=== PATIENT | female | born 1960 | race Caucasian/White ===

== ENCOUNTER 2016-06-16 19:31 | Inpatient (IN) | payer MEDICAID ==
[2016-06-16] MEDS ORDERED: Sodium Chloride 0.9% 1,000 ML IV ONE ×2 (19:50→21:57)
[2016-06-16] MEDS ORDERED: Sodium Chloride 0.9% 10 ML Syringe FLUSH PRN (19:51)
[2016-06-16] MEDS ORDERED: cefTRIAXone 1 GM in Sodium Chloride 0.9% 100 ML IV ONE (21:34)
--- NOTE | 2016-06-16 21:42 | EDM.PDOC ---
ED HPI RENAL/ - General Chief Complaint: Genitourinary Problem Stated Complaint: [facility] Time Seen by Provider: 06/16/16 20:05 Source of Information: Reports: EMS, [facility] records History Limitations: Reports: Physical impairment - History of Present Illness INITIAL COMMENTS - FREE TEXT/NARRATIVE: Patient is sent for the halfway for evaluation and treatment of a fever and lethargy. Reports that she had fever of 100.5 at the halfway. She has also been more lethargic than normal. Patient is nonverbal and is unable to provide any history. The patient was diagnosed with urinary tract infection and started on ciprofloxacin today. She has had one dose thus far. - Related Data Allergies/ADRs: Allergies Allergy/AdvReac Type Severity Reaction Status Date / Time No Known Allergies Allergy Verified 07/21/15 15:34 Home Meds: Home Meds Baclofen 30 mg PO TID 04/06/14 [History] FLUoxetine [PROzac] 20 mg PO DAILY 04/06/14 [History] LORazepam [Ativan] 0.25 mg PO BID 04/06/14 [History] tiZANidine HCl [Zanaflex] 2 mg PO TID 04/06/14 [History] Acetaminophen [Tylenol] 2 tab PO Q4HR PRN 06/30/14 [History] Cholecalciferol (Vitamin D3) [Vitamin D3] 2,000 unit PO DAILY 06/30/14 [History] Docusate Sodium/Sennosides [Senna Plus] 2 tab PO BID 06/30/14 [History] Magnesium Oxide 400 mg PO DAILY 06/30/14 [History] Multivitamin with Minerals [Multiple Vitamin] 1 tab PO DAILY 06/30/14 [History] levETIRAcetam [Keppra] 1,000 mg PO BID 06/30/14 [History] Lactulose [Chronulac] 15 ml PO ASDIRECTED PRN 08/05/14 [History] Bisacodyl [Dulcolax] 10 mg PO ASDIRECTED PRN 07/21/15 [History] Bisacodyl [Dulcolax] 10 mg RC ASDIRECTED PRN 07/21/15 [History] Levofloxacin [Levaquin] 250 mg PO Q24H #3 tablet 07/24/15 [Rx] Past Medical History Genitourinary History: Reports: UTI, recurrent Other Musculoskeletal History: MS Neurological History: Reports: Alzheimers disease, CVA, MS Psychiatric History: Reports: Depression Endocrine/Metabolic History: Reports: Diabetes, type II Hematologic History: Reports: Anemia, Other (see below) Other Hematologic History: eosinophilia Social & Family History - Family History Family Medical History: Unobtainable - Tobacco Use Smoking Status *Q: Unknown Ever Smoked Second Hand Smoke Exposure: No - Alcohol Use Days Per Week of Alcohol Use: 0 - Recreational Drug Use Recreational Drug Use: No ED ROS GENERAL - Review of Systems Review Of Systems: Unable To Obtain Constitutional: Reports: fever (100.5 per halfway report), fatigue (per halfway report) ED EXAM, RENAL/ - Physical Exam Exam: See Below Exam Limited By: Language barrier (nonverbal) General Appearance: alert, WD/WN, no apparent distress Respiratory/Chest: no respiratory distress, lungs clear, normal breath sounds Cardiovascular: normal peripheral pulses, regular rate, rhythm, no murmur GI/Abdominal: soft, non tender Neurological: alert Skin Exam: Warm, Dry, Normal color Course - Vital Signs Last Recorded V/S: Last Vital Signs Temp 37.3 C 06/16/16 22:00 Pulse 79 06/16/16 22:00 Resp 18 06/16/16 22:00 BP 108/66 06/16/16 22:00 Pulse Ox 96 06/16/16 22:00 - Orders/Labs/Meds Orders: Active Orders 24 hr Category Date Time Status Chest 1V Frontal [CR] Stat Exams 06/16/16 19:50 Taken BASIC METABOLIC PANEL,BMP [CHEM] Stat Lab 06/17/16 05:00 Ordered C-REACTIVE PROTEIN [CHEM] Stat Lab 06/17/16 05:00 Ordered CBC WITH AUTO DIFF [HEME] Stat Lab 06/17/16 05:00 Ordered CULTURE BLOOD [BC] Stat Lab 06/16/16 20:25 Received CULTURE BLOOD [BC] Stat Lab 06/16/16 20:30 Received CULTURE URINE [RM] Stat Lab 06/16/16 20:14 Received KEPPRA [REF] Stat Lab 06/17/16 05:00 Ordered Sodium Chloride 0.9% [Normal Saline] 1,000 ml Med 06/16/16 21:57 Active IV ONETIME Sodium Chloride 0.9% [Saline Flush] Med 06/16/16 19:51 Active 10 ml FLUSH ASDIRECTED PRN Blood Culture x2 Reflex Set [OM.PC] Stat Oth 06/16/16 19:50 Ordered Peripheral IV Insertion Adult [OM.PC] Routine Oth 06/16/16 19:51 Ordered Medication Orders Sodium Chloride (Normal Saline) 1,000 mls @ 125 mls/hr IV ONETIME ONE Stop: 06/17/16 05:56 Last Admin: 06/16/16 22:13 Dose: 125 mls/hr Sodium Chloride (Saline Flush) 10 ml FLUSH ASDIRECTED PRN PRN Reason: Keep Vein Open Last Admin: 06/16/16 20:18 Dose: 10 ml Labs: Laboratory Tests 06/16/16 06/16/16 06/16/16 Range/Units 20:14 20:25 20:25 WBC 11.99 H (3.98-10.04) K/mm3 RBC 4.16 (3.98-5.22) M/mm3 Hgb 11.8 (11.2-15.7) gm/L Hct 36.9 (34.1-44.9) % MCV 88.7 (79.4-94.8) fl MCH 28.4 (25.6-32.2) pg MCHC 32.0 L (32.2-35.5) g/dl RDW Std Deviation 55.2 H (36.4-46.3) fL Plt Count 249 (182-369) K/mm3 MPV 10.1 (9.4-12.3) fl Neutrophils % (Manual) 65 H (40-60) % Band Neutrophils % 0 (0-10) % Lymphocytes % (Manual) 20 (20-40) % Atypical Lymphs % 2 % Monocytes % (Manual) 12 H (2-10) % Eosinophils % (Manual) 1 (0.7-5.8) % Basophils % (Manual) 0 L (0.1-1.2) Platelet Estimate Adequate Plt Morphology Comment Normal Poikilocytosis 1+ slight Anisocytosis 1+ slight Macrocytosis 1+ slight Target Cells 1+ slight RBC Morph Comment Abnormal Sodium 142 (136-145) mEq/L Potassium 3.2 L (3.5-5.1) mEq/L Chloride 104 (98-107) mEq/L Carbon Dioxide 31 (21-32) mEq/L Anion Gap 10.2 (5-15) BUN 15 (7-18) mg/dL Creatinine 0.9 (0.55-1.02) mg/dL Est Cr Clr Drug Dosing 67.67 mL/min Estimated GFR (MDRD) > 60 (>60) mL/min BUN/Creatinine Ratio 16.7 (14-18) Glucose 119 H (74-106) mg/dL Lactic Acid (0.4-2.0) mmol/L Calcium 9.7 (8.5-10.1) mg/dL Total Bilirubin 0.3 (0.2-1.0) mg/dL AST 29 (15-37) U/L ALT 32 (14-59) U/L Alkaline Phosphatase 78 (46-116) U/L C-Reactive Protein 18.4 H* (<1.0) mg/dL Total Protein 7.5 (6.4-8.2) g/dl Albumin 2.6 L (3.4-5.0) g/dl Globulin 4.9 gm/dL Albumin/Globulin Ratio 0.5 L (1-2) Urine Color Yellow (Yellow) Urine Appearance Cloudy H (Clear) Urine pH 8.5 H (5.0-8.0) Ur Specific [place] 1.020 (1.005-1.030) Urine Protein 3+ H (Negative) Urine Glucose (UA) Negative (Negative) Urine Ketones Trace H (Negative) Urine Occult Blood 3+ H (Negative) Urine Nitrite Negative (Negative) Urine Bilirubin Negative (Negative) Urine Urobilinogen 0.2 (0.2-1.0) Ur Leukocyte Esterase 3+ H (Negative) Urine RBC 10-20 H (0-5) /hpf Urine WBC 10-20 H (0-5) /hpf Ur Squamous Epith Cells 0-5 (0-5) /hpf Calcium Phosphate Cryst Occasional (NONE) Urine Bacteria Many H (FEW) /hpf Urine Mucus Not seen (FEW) /hpf 06/16/16 Range/Units 20:25 WBC (3.98-10.04) K/mm3 RBC (3.98-5.22) M/mm3 Hgb (11.2-15.7) gm/L Hct (34.1-44.9) % MCV (79.4-94.8) fl MCH (25.6-32.2) pg MCHC (32.2-35.5) g/dl RDW Std Deviation (36.4-46.3) fL Plt Count (182-369) K/mm3 MPV (9.4-12.3) fl Neutrophils % (Manual) (40-60) % Band Neutrophils % (0-10) % Lymphocytes % (Manual) (20-40) % Atypical Lymphs % % Monocytes % (Manual) (2-10) % Eosinophils % (Manual) (0.7-5.8) % Basophils % (Manual) (0.1-1.2) Platelet Estimate Plt Morphology Comment Poikilocytosis Anisocytosis Macrocytosis Target Cells RBC Morph Comment Sodium (136-145) mEq/L Potassium (3.5-5.1) mEq/L Chloride (98-107) mEq/L Carbon Dioxide (21-32) mEq/L Anion Gap (5-15) BUN (7-18) mg/dL Creatinine (0.55-1.02) mg/dL Est Cr Clr Drug Dosing mL/min Estimated GFR (MDRD) (>60) mL/min BUN/Creatinine Ratio (14-18) Glucose (74-106) mg/dL Lactic Acid 1.3 (0.4-2.0) mmol/L Calcium (8.5-10.1) mg/dL Total Bilirubin (0.2-1.0) mg/dL AST (15-37) U/L ALT (14-59) U/L Alkaline Phosphatase (46-116) U/L C-Reactive Protein (<1.0) mg/dL Total Protein (6.4-8.2) g/dl Albumin (3.4-5.0) g/dl Globulin gm/dL Albumin/Globulin Ratio (1-2) Urine Color (Yellow) Urine Appearance (Clear) Urine pH (5.0-8.0) Ur Specific [place] (1.005-1.030) Urine Protein (Negative) Urine Glucose (UA) (Negative) Urine Ketones (Negative) Urine Occult Blood (Negative) Urine Nitrite (Negative) Urine Bilirubin (Negative) Urine Urobilinogen (0.2-1.0) Ur Leukocyte Esterase (Negative) Urine RBC (0-5) /hpf Urine WBC (0-5) /hpf Ur Squamous Epith Cells (0-5) /hpf Calcium Phosphate Cryst (NONE) Urine Bacteria (FEW) /hpf Urine Mucus (FEW) /hpf Meds: Medications Generic Name Dose Route Start Last Admin Trade Name Freq PRN Reason Stop Dose Admin Sodium Chloride 1,000 mls @ 125 mls/hr 06/16/16 21:57 06/16/16 22:13 Normal Saline IV 06/17/16 05:56 125 mls/hr ONETIME ONE Administration Sodium Chloride 10 ml 06/16/16 19:51 06/16/16 20:18 Saline Flush FLUSH 10 ml ASDIRECTED PRN Administration Keep Vein Open Discontinued Medications Generic Name Dose Route Start Last Admin Trade Name Freq PRN Reason Stop Dose Admin Sodium Chloride 1,000 mls @ 999 mls/hr 06/16/16 19:50 06/16/16 22:13 Normal Saline IV 06/16/16 20:50 Infused ONETIME ONE Infusion Ceftriaxone Sodium 1 gm/ 100 mls @ 200 mls/hr 06/16/16 21:34 06/16/16 22:13 Sodium Chloride IV 06/16/16 22:03 200 mls/hr ONETIME ONE Administration - Radiology Interpretation Free Text/Narrative:: chest 1 view shows no acute intrathoracic process. - Re-Assessments/Exams Free Text/Narrative Re-Assessment/Exam: 06/16/16 22:15 The patient's labs have returned. WBC is 11.99, hgb is 11.8 and platelets are 249. Sodium is 142, potassium 3.2 chloride is 104. Anion gap is 10.9. Glucose is 119. CRP is elevated at 18.4. UA is 3+ protein, 3+ blood, trace ketones, 3+ leukocytes and many bacteria. influenza is negative blood and urine cultures are pending. IV Rocephin given. Case discussed with Dr. Winston Hospitalist recreation professor. agrees to admission. Will admit [facility] with telemetry. AM labs to include: basic Metabolic panel, Keppra level, CBC with differential, CRP. Departure - Departure Time of Disposition: 22:00 Disposition: Admitted As Inpatient 68 Condition: fair Clinical Impression: UTI (urinary tract infection) - My Orders Last 24 Hours: My Active Orders 06/16/16 19:50 Chest 1V Frontal [CR] Stat Blood Culture x2 Reflex Set [OM.PC] Stat 06/16/16 19:51 Sodium Chloride 0.9% [Saline Flush] 10 ml FLUSH ASDIRECTED PRN Peripheral IV Insertion Adult [OM.PC] Routine 06/16/16 20:14 CULTURE URINE [RM] Stat 06/16/16 20:25 CULTURE BLOOD [BC] Stat 06/16/16 20:30 CULTURE BLOOD [BC] Stat 06/16/16 21:57 Sodium Chloride 0.9% [Normal Saline] 1,000 ml IV ONETIME 06/17/16 05:00 BASIC METABOLIC PANEL,BMP [CHEM] Stat C-REACTIVE PROTEIN [CHEM] Stat CBC WITH AUTO DIFF [HEME] Stat KEPPRA [REF] Stat - Assessment/Plan Last 24 Hours: My Active Orders 06/16/16 19:50 Chest 1V Frontal [CR] Stat Blood Culture x2 Reflex Set [OM.PC] Stat 06/16/16 19:51 Sodium Chloride 0.9% [Saline Flush] 10 ml FLUSH ASDIRECTED PRN Peripheral IV Insertion Adult [OM.PC] Routine 06/16/16 20:14 CULTURE URINE [RM] Stat 06/16/16 20:25 CULTURE BLOOD [BC] Stat 06/16/16 20:30 CULTURE BLOOD [BC] Stat 06/16/16 21:57 Sodium Chloride 0.9% [Normal Saline] 1,000 ml IV ONETIME 06/17/16 05:00 BASIC METABOLIC PANEL,BMP [CHEM] Stat C-REACTIVE PROTEIN [CHEM] Stat CBC WITH AUTO DIFF [HEME] Stat KEPPRA [REF] Stat
--- NOTE | 2016-06-17 12:07 | PCM.HP ---
H&P History of Present Illness - General Date of Service: 06/17/16 Admit Problem/Dx: Admission Diagnosis/Problem Admission Diagnosis/Problem Urinary tract infection Source of Information: Provider History Limitations: Reports: Altered mental status - History of Present Illness Initial Comments - Free Text/Narative: 55 year old female from a SNF, nonverbal with MS became febrile with at least a temp of 100.5 documented by nursing staff before ED assessment. She is more lethargic, and has at minimal a UTI. UC and BCs have been drawn; a dose of rocephin was given in the ED. A swallow eval has been ordered, currently D5 1/ 2 NS with KCL is running. A transfer from [place] telemetry has been made when the patient appeared to have seizure like activity; a keppra level was ordered last night in the ED. However the level is a send out lab study. In the meantime, the patient has received Ativan 1mg, followed by keppra 1000 mg IV. The SZ like activity has stopped, the patient is more comfortable. A repeat CXR is pending, a CT of the head was unremarkable for acute changes. Onset of Symptoms: Reports: unknown/unsure Duration of Symptoms: Reports: Day(s):, Getting worse. Denies: Hour(s): Location: Reports: abdomen Quality: Reports: Same as previous episode Severity: moderate Improves with: Reports: Medication Worsens with: Reports: None Associated Symptoms: Reports: confusion, fever/chills - Related Data Allergies/Adverse Reactions: Allergies Allergy/AdvReac Type Severity Reaction Status Date / Time No Known Allergies Allergy Verified 07/21/15 15:34 Home Medications: Home Meds Baclofen 30 mg PO TID 04/06/14 [History] FLUoxetine [PROzac] 10 mg PO DAILY 04/06/14 [History] LORazepam [Ativan] 0.25 mg PO BID 04/06/14 [History] tiZANidine HCl [Zanaflex] 2 mg PO TID 04/06/14 [History] Acetaminophen [Tylenol] 2 tab PO Q4HR PRN 06/30/14 [History] Cholecalciferol (Vitamin D3) [Vitamin D3] 2,000 unit PO DAILY 06/30/14 [History] Docusate Sodium/Sennosides [Senna Plus] 2 tab PO BID 06/30/14 [History] Magnesium Oxide 400 mg PO QPM 06/30/14 [History] Multivitamin with Minerals [Multiple Vitamin] 1 tab PO DAILY 06/30/14 [History] levETIRAcetam [Keppra] 1,000 mg PO BID 06/30/14 [History] Lactulose [Chronulac] 15 ml PO DAILY PRN 08/05/14 [History] Bisacodyl [Dulcolax] 10 mg PO DAILY PRN 07/21/15 [History] Bisacodyl [Dulcolax] 10 mg RC ASDIRECTED PRN 07/21/15 [History] Ciprofloxacin [Ciprofloxacin HCl] 250 mg PO BID 06/17/16 [History] Past Medical History HEENT History: Reports: Other (see below) Other HEENT History: dysphagia Gastrointestinal History: Reports: Chronic constipation Genitourinary History: Reports: UTI, recurrent Other Genitourinary History: sepsis secondary to e-coli Musculoskeletal History: Reports: Back pain, chronic, Osteoarthritis, Osteoporosis, Other (see below) Other Musculoskeletal History: MS Neurological History: Reports: Alzheimers disease, CVA, MS Other Neuro History: chronic embolisms/thrombosis of veins, recurrent strokes, convulsions Psychiatric History: Reports: Depression Other Psychiatric History: insomnia Endocrine/Metabolic History: Reports: Diabetes, type II Hematologic History: Reports: Anemia, Other (see below) Other Hematologic History: eosinophilia - Infectious Disease History Infectious Disease History: Reports: Other (see below) Other Infectious Disease History: unknown pt unable to answer and it is not listed on fpc paperwork - Past Surgical History Head Surgeries/Procedures: Reports: None HEENT Surgical History: Reports: None GI Surgical History: Reports: None Female Surgical History: Reports: None Endocrine Surgical History: Reports: None Musculoskeletal Surgical History: Reports: None Social & Family History - Family History Family Medical History: Unobtainable - Tobacco Use Smoking Status *Q: Unknown Ever Smoked Tobacco Use Comment: pt unable to answer and her [facility] paperwork does not states Second Hand Smoke Exposure: No - Caffeine Use Caffeine Use: Reports: None - Alcohol Use Days Per Week of Alcohol Use: 0 - Recreational Drug Use Recreational Drug Use: No H&P Review of Systems - Review of Systems: Review Of Systems: Unable To Obtain Exam - Exam Exam: See Below - Vital Signs Vital Signs: Last Vital Signs Temp 37.2 C 06/17/16 10:00 Pulse 77 06/17/16 10:00 Resp 20 06/17/16 10:00 BP 112/68 06/17/16 10:00 Pulse Ox 96 06/17/16 10:00 Weight: 69.899 kg - Exam Quality Assessment: supplemental oxygen, DVT prophylaxis. No: urinary catheter General: alert, oriented HEENT: Conjunctiva clear, EACs clear, EOMI, Nares patent, Pupils equal, Pupils reactive, Other (dry oral phaynx). No: Mucosa moist & pink Neck: supple, trachea midline Lungs: Decreased breath sounds, Rhonchi Cardiovascular: regular rate, tachycardia Abdomen: normal bowel sounds, soft (Female) Exam: Deferred Rectal (Female) Exam: Deferred Back Exam: normal inspection Extremities: normal pulses Skin: warm Neurological: cranial nerves intact, other (nonverbal) Neuro Extensive - Mental Status: alert Neuro Extensive - Motor, Sensory, Reflexes: CN II-XII intact Psychiatric: alert - Patient Data Lab Results last 24 hrs: Laboratory Results - last 24 hr 06/17/16 06/17/16 Range/Units 06:26 06:26 WBC 10.70 H (3.98-10.04) K/mm3 RBC 4.30 (3.98-5.22) M/mm3 Hgb 12.3 (11.2-15.7) gm/L Hct 38.0 (34.1-44.9) % MCV 88.4 (79.4-94.8) fl MCH 28.6 (25.6-32.2) pg MCHC 32.4 (32.2-35.5) g/dl RDW Std Deviation 53.9 H (36.4-46.3) fL Plt Count 222 (182-369) K/mm3 MPV 10.0 (9.4-12.3) fl Neut % (Auto) 67.6 (34.0-71.1) % Lymph % (Auto) 22.0 (19.3-51.7) % [place] % (Auto) 9.7 (4.7-12.5) % Eos % (Auto) 0.3 L (0.7-5.8) Baso % (Auto) 0.2 (0.1-1.2) % Neut # (Auto) 7.24 H (1.56-6.13) K/mm3 Lymph # (Auto) 2.35 (1.18-3.74) K/mm3 [place] # (Auto) 1.04 H (0.24-0.36) K/mm3 Eos # (Auto) 0.03 L (0.04-0.36) K/mm3 Baso # (Auto) 0.02 (0.01-0.08) K/mm3 Manual Slide Review Not Reportable Sodium 142 (136-145) mEq/L Potassium 3.3 L (3.5-5.1) mEq/L Chloride 106 (98-107) mEq/L Carbon Dioxide 27 (21-32) mEq/L Anion Gap 12.3 (5-15) BUN 10 (7-18) mg/dL Creatinine 0.7 (0.55-1.02) mg/dL Est Cr Clr Drug Dosing 87.01 mL/min Estimated GFR (MDRD) > 60 (>60) mL/min BUN/Creatinine Ratio 14.3 (14-18) Glucose 104 (74-106) mg/dL Calcium 8.9 (8.5-10.1) mg/dL C-Reactive Protein 15.7 H* (<1.0) mg/dL Result Diagrams: 06/18/16 05:30 06/18/16 05:30 *Q Meaningful Use (ADM) - VTE *Q VTE Criteria *Q: - Stroke *Q Stroke Criteria *Q: - AMI *Q AMI Criteria *Q: Problem List Initiated/Reviewed/Updated: Yes Orders Last 24hrs: Active Orders 24 hr Category Date Time Status Bedrest [RC] ASDIRECTED Care 06/16/16 22:05 Active Swallow Screen [Nursing Bedside Swallow Screen] [] Care 06/17/16 09:14 Active ASDIRECTED Head wo Cont [CT] Routine Exams 06/17/16 14:00 Taken CULTURE MRSA SURVEY [] Routine Lab 06/17/16 01:40 Received Medication Orders Sodium Chloride (Saline Flush) 10 ml FLUSH ASDIRECTED PRN PRN Reason: Keep Vein Open Last Admin: 06/16/16 20:18 Dose: 10 ml Assessment/Plan Comment:: Impression: Febrile with UTI AMS, questionable SZ like activity Risk of aspiration Plan: ICU IV ATBs IV Keppra if unable to take oral meds Await Keppra level Swallow study Hydrate as needed, have reduced rate for now. BP/HR control, address cause of elevation DVT/GI prophylaxis Consult PT/OT/SW LOS<96 hours, expected.
[2016-06-17] MEDS ORDERED: 50% Dextrose in Water 50 ML Syringe IVPUSH PRN (13:04)
[2016-06-17] MEDS: Levofloxacin/Dextrose 5%-Water 750 MG in Premix Bag 1 BAG IV SCH (13:30)
[2016-06-17] MEDS: tiZANidine 4 MG Tab PO SCH ×2 (14:16→20:28)
[2016-06-17] MEDS: Baclofen 10 MG Tab PO SCH ×2 (14:16→20:27)
[2016-06-17] MEDS ORDERED: levETIRAcetam 1,000 MG in Sodium Chloride 0.9% 100 ML IV ONE (15:24)
[2016-06-17] MEDS ORDERED: LORazepam 2 MG/ML MDV IVPUSH ONE (15:30)
[2016-06-17] MEDS: Insulin Aspart 100 Units/ML 3 ML Pen SUBCUT SCH ×2 (16:09→21:00)
[2016-06-17] MEDS: D5 1/2 NS w/ 20 mEq/L KCl 1,000 ML IV SCH ×2 (16:39→18:13)
[2016-06-17] MEDS ORDERED: hydrALAZINE 20 MG/ML SDV IVPUSH PRN (17:10)
[2016-06-17] MEDS ORDERED: Metoprolol Tartrate 5 MG/5 ML SDV IVPUSH PRN (17:11)
[2016-06-17] MEDS: Magnesium Oxide 400 MG Tab PO SCH (18:13)
[2016-06-17] MEDS ORDERED: levETIRAcetam 500 MG Tab PO SCH (21:00)
[2016-06-17] MEDS: levETIRAcetam 1,000 MG in Sodium Chloride 0.9% 100 ML IV SCH (21:43)
[2016-06-18] MEDS ORDERED: Metoprolol Tartrate 5 MG/5 ML SDV IVPUSH PRN (00:11)
[2016-06-18] MEDS: Insulin Aspart 100 Units/ML 3 ML Pen SUBCUT SCH ×4 (06:37→21:17)
[2016-06-18] MEDS: D5 1/2 NS w/ 20 mEq/L KCl 1,000 ML IV SCH (08:45)
[2016-06-18] MEDS: Enoxaparin 40 MG/0.4 ML Syringe SUBCUT SCH (09:40)
[2016-06-18] MEDS: Baclofen 10 MG Tab PO SCH ×3 (09:41→21:32)
[2016-06-18] MEDS: tiZANidine 4 MG Tab PO SCH ×2 (09:41→15:29)
[2016-06-18] MEDS: FLUoxetine 10 MG Cap PO SCH (09:41)
[2016-06-18] MEDS: levETIRAcetam 500 MG Tab PO SCH ×2 (10:38→21:20)
[2016-06-18] MEDS ORDERED: Magnesium Sulfate/Water 2 GM in Premix Bag 1 BAG IV ONE (11:07)
[2016-06-18] MEDS ORDERED: Potassium Chloride 10% 20 MEQ/15 ML Soln 30 ML UD Cup PO ONE (11:07)
--- NOTE | 2016-06-18 11:11 | PCM.PN ---
- General Info Date of Service: 06/18/16 Subjective Update: Patient had rhythmic motion which suggested seizure activity. Ativan and Keppra were given IV for seizures successfully. Today more interactive, baseline is non verbal able to complete swallow study, will be changed to puree diet and resume oral meds. Functional Status: Reports: urinating, other (no seizure activity) - Review of Systems General: Reports: Weakness HEENT: Reports: no symptoms Pulmonary: Reports: no symptoms Cardiovascular: Reports: No Symptoms. Denies: Other Gastrointestinal: Reports: No symptoms Genitourinary: Reports: no symptoms Musculoskeletal: Reports: no symptoms Skin: Reports: no symptoms Neurological: Reports: No Symptoms. Denies: Seizure Psychiatric: Reports: no symptoms - Patient Data Vitals - most recent: Last Vital Signs Temp 36.6 C 06/18/16 09:00 Pulse 121 H 06/18/16 01:39 Resp 25 H 06/18/16 09:00 BP 113/82 06/18/16 09:00 Pulse Ox 94 L 06/18/16 09:00 Weight - most recent: 72.62 kg I&O - last 24 hours: Intake & Output 06/17/16 06/18/16 06/18/16 22:59 06:59 14:59 Intake Total 100 999 Balance 100 999 Lab Results last 24 hrs: Laboratory Results - last 24 hr 06/17/16 06/18/16 06/18/16 Range/Units 20:33 05:30 05:30 WBC 11.82 H (3.98-10.04) K/mm3 RBC 4.18 (3.98-5.22) M/mm3 Hgb 12.0 (11.2-15.7) gm/L Hct 35.3 (34.1-44.9) % MCV 84.4 (79.4-94.8) fl MCH 28.7 (25.6-32.2) pg MCHC 34.0 (32.2-35.5) g/dl RDW Std Deviation 50.1 H (36.4-46.3) fL Plt Count 240 (182-369) K/mm3 MPV 9.5 (9.4-12.3) fl Neut % (Auto) 78.5 H (34.0-71.1) % Lymph % (Auto) 12.2 L (19.3-51.7) % Cherry % (Auto) 8.9 (4.7-12.5) % Eos % (Auto) 0 L (0.7-5.8) Baso % (Auto) 0.2 (0.1-1.2) % Neut # (Auto) 9.29 H (1.56-6.13) K/mm3 Lymph # (Auto) 1.44 (1.18-3.74) K/mm3 Cherry # (Auto) 1.05 H (0.24-0.36) K/mm3 Eos # (Auto) 0.00 L (0.04-0.36) K/mm3 Baso # (Auto) 0.02 (0.01-0.08) K/mm3 Manual Slide Review Normal smear Sodium 136 (136-145) mEq/L Potassium 3.3 L (3.5-5.1) mEq/L Chloride 102 (98-107) mEq/L Carbon Dioxide 23 (21-32) mEq/L Anion Gap 14.3 (5-15) BUN 10 (7-18) mg/dL Creatinine 1.0 (0.55-1.02) mg/dL Est Cr Clr Drug Dosing 60.91 mL/min Estimated GFR (MDRD) 58 (>60) mL/min BUN/Creatinine Ratio 10.0 L (14-18) Glucose 138 H (74-106) mg/dL POC Glucose 102 (70-105) mg/dL Calcium 8.7 (8.5-10.1) mg/dL Magnesium 1.5 L (1.8-2.4) mg/dl C-Reactive Protein 26.8 H* (<1.0) mg/dL 06/18/16 Range/Units 06:02 WBC (3.98-10.04) K/mm3 RBC (3.98-5.22) M/mm3 Hgb (11.2-15.7) gm/L Hct (34.1-44.9) % MCV (79.4-94.8) fl MCH (25.6-32.2) pg MCHC (32.2-35.5) g/dl RDW Std Deviation (36.4-46.3) fL Plt Count (182-369) K/mm3 MPV (9.4-12.3) fl Neut % (Auto) (34.0-71.1) % Lymph % (Auto) (19.3-51.7) % Cherry % (Auto) (4.7-12.5) % Eos % (Auto) (0.7-5.8) Baso % (Auto) (0.1-1.2) % Neut # (Auto) (1.56-6.13) K/mm3 Lymph # (Auto) (1.18-3.74) K/mm3 Cherry # (Auto) (0.24-0.36) K/mm3 Eos # (Auto) (0.04-0.36) K/mm3 Baso # (Auto) (0.01-0.08) K/mm3 Manual Slide Review Sodium (136-145) mEq/L Potassium (3.5-5.1) mEq/L Chloride (98-107) mEq/L Carbon Dioxide (21-32) mEq/L Anion Gap (5-15) BUN (7-18) mg/dL Creatinine (0.55-1.02) mg/dL Est Cr Clr Drug Dosing mL/min Estimated GFR (MDRD) (>60) mL/min BUN/Creatinine Ratio (14-18) Glucose (74-106) mg/dL POC Glucose 120 H (70-105) mg/dL Calcium (8.5-10.1) mg/dL Magnesium (1.8-2.4) mg/dl C-Reactive Protein (<1.0) mg/dL [facility] Results last 24 hrs: Microbiology 06/17/16 01:40 MRSA Surveillance Culture - Final Nasal/Axilla/Groin NO MRSA ISOLATED Med Orders - Current: Current Medications Acetaminophen (Tylenol) 650 mg RECTAL Q6H PRN PRN Reason: Fever Baclofen (Lioresal) 30 mg PO TID [facility] Last Admin: 06/18/16 09:41 Dose: 30 mg Dextrose/Water (Dextrose 50% In Water) 50 ml IVPUSH ASDIRECTED PRN PRN Reason: Hypoglycemia Enoxaparin Sodium (Lovenox) 40 mg SUBCUT DAILY [facility] Last Admin: 06/18/16 09:40 Dose: 40 mg Fluoxetine HCl (Prozac) 10 mg PO DAILY [facility] Last Admin: 06/18/16 09:41 Dose: 10 mg Hydralazine HCl (Apresoline) 20 mg IVPUSH Q8H PRN PRN Reason: Hypertension Levofloxacin/Dextrose 750 mg/ (Premix) 150 mls @ 100 mls/hr IV Q24H [facility] Last Admin: 06/17/16 13:30 Dose: 100 mls/hr Potassium Chloride/Dextrose/Sod Cl (D5 1/2 Ns W/ 20 Meq/L Kcl) 1,000 mls @ 70 mls/hr IV ASDIRECTED [facility] Last Admin: 06/18/16 08:45 Dose: 70 mls/hr Vancomycin HCl 1 gm/ Sodium (Chloride) 250 mls @ 167 mls/hr IV Q12H [facility] Last Admin: 06/18/16 10:38 Dose: 167 mls/hr Magnesium Sulfate 2 gm/ Premix 50 mls @ 25 mls/hr IV ONETIME ONE Stop: 06/18/16 13:06 Insulin Aspart (Novolog) 0 unit SUBCUT QIDACANDBED [facility] PRN Reason: Protocol Last Admin: 06/18/16 06:37 Dose: Not Given Levetiracetam (Keppra) 1,000 mg PO BID [facility] Last Admin: 06/18/16 10:38 Dose: 1,000 mg Lorazepam (Ativan) 1 mg IVPUSH Q4H PRN PRN Reason: Seizures Magnesium Oxide (Magnesium Oxide) 400 mg PO QPM [facility] Last Admin: 06/17/16 18:13 Dose: Not Given Metoprolol Tartrate (Lopressor) 2.5 mg IVPUSH Q4H PRN PRN Reason: heart rate Last Admin: 06/18/16 01:39 Dose: 2.5 mg Senna/Docusate Sodium (Senna Plus) 2 tab PO BID [facility] Last Admin: 06/18/16 09:42 Dose: 2 tab Sodium Chloride (Saline Flush) 10 ml FLUSH ASDIRECTED PRN PRN Reason: Keep Vein Open Last Admin: 06/16/16 20:18 Dose: 10 ml Tizanidine HCl (Zanaflex) 2 mg PO TID [facility] Last Admin: 06/18/16 09:41 Dose: 2 mg Vancomycin HCl (Pharmacy To Dose - Vancomycin) 0 dose .XX ASDIRECTED PRN PRN Reason: RX DOSE Discontinued Medications Sodium Chloride (Normal Saline) 1,000 mls @ 999 mls/hr IV ONETIME ONE Stop: 06/16/16 20:50 Last Infusion: 06/16/16 22:13 Dose: Infused Ceftriaxone Sodium 1 gm/ (Sodium Chloride) 100 mls @ 200 mls/hr IV ONETIME ONE Stop: 06/16/16 22:03 Last Admin: 06/16/16 22:13 Dose: 200 mls/hr Sodium Chloride (Normal Saline) 1,000 mls @ 125 mls/hr IV ONETIME ONE Stop: 06/17/16 05:56 Last Admin: 06/16/16 22:13 Dose: 125 mls/hr Levetiracetam 1,000 mg/ Sodium (Chloride) 110 mls @ 400 mls/hr IV ONETIME ONE Stop: 06/17/16 15:38 Last Admin: 06/17/16 16:07 Dose: 400 mls/hr Levetiracetam 1,000 mg/ Sodium (Chloride) 110 mls @ 400 mls/hr IV Q12H [facility] Last Admin: 06/17/16 21:43 Dose: 400 mls/hr Vancomycin HCl 1 gm/ Sodium (Chloride) 250 mls @ 250 mls/hr IV ONETIME ONE Stop: 06/18/16 00:03 Last Admin: 06/17/16 23:18 Dose: 250 mls/hr Levetiracetam (Keppra) 1,000 mg PO BID [facility] Last Admin: 06/17/16 20:27 Dose: Not Given Lorazepam (Ativan) 1 mg IVPUSH ONETIME ONE Stop: 06/17/16 15:31 Last Admin: 06/17/16 16:03 Dose: 1 mg Metoprolol Tartrate (Lopressor) 2.5 mg IVPUSH Q6H PRN PRN Reason: heart rate Last Admin: 06/17/16 21:28 Dose: 2.5 mg Potassium Chloride (Potassium Chloride) 40 meq PO ONETIME ONE Stop: 06/18/16 11:08 - Exam Quality Assessment: supplemental oxygen, urine catheter, DVT prophylaxis General: alert, cooperative, no acute distress. No: other Neck: supple, trachea midline, no JVD Lungs: Normal respiratory effort Cardiovascular: Regular Rate, Tachycardia (low 100s, ST) Abdomen: bowel sounds present, soft, no tenderness, no distension (Female) Exam: Deferred Back Exam: normal inspection Extremities: normal pulses Skin: warm. No: moist Neurological: no new focal deficit. No: other Psy/Mental Status: alert. No: other - Problem List Review Problem List Initiated/Reviewed/Updated: Yes - My Orders Last 24 Hours: My Active Orders 06/17/16 12:16 Antiembolic Devices [RC] PER UNIT ROUTINE ALCON Hose [Antiembolic Hose] [OM.PC] Routine 06/17/16 12:38 [employer] Evaluation and Treatment [CONS] Routine 06/17/16 12:59 Vital Signs [RC] Q4H 06/17/16 13:00 Levofloxacin/Dextrose 5%-Water [Levaquin in D5W 750 MG/150 ML] 750 mg Premix Bag 1 bag IV Q24H 06/17/16 13:03 Accu Check [Blood Glucose Check, Bedside] [RC] 07,11,17,21 06/17/16 13:04 Dextrose 50% in Water 50 ml IVPUSH ASDIRECTED PRN 06/17/16 13:15 D5 1/2 NS w/ 20 mEq/L KCl 1,000 ml IV ASDIRECTED 06/17/16 14:00 Head wo Cont [CT] Routine 06/17/16 15:00 Baclofen [Lioresal] 30 mg PO TID tiZANidine [Zanaflex] 2 mg PO TID 06/17/16 15:24 Aspiration Precautions [RC] ASDIRECTED 06/17/16 15:30 CXR [Chest 1V Frontal] [CR] Routine 06/17/16 15:34 Patient Status [ADT] Routine 06/17/16 17:00 Insulin Aspart [NovoLOG] See Protocol SUBCUT QIDACANDBED 06/17/16 17:10 hydrALAZINE [Apresoline] 20 mg IVPUSH Q8H PRN 06/17/16 17:11 Seizure Precautions [OM.PC] Routine 06/17/16 18:00 Magnesium Oxide 400 mg PO QPM 06/17/16 20:06 Oral Care [OM.PC] QID 06/17/16 20:41 LORazepam [Ativan] 1 mg IVPUSH Q4H PRN 06/17/16 21:00 Docusate Sodium/Sennosides [Senna Plus] 2 tab PO BID 06/17/16 Dinner NPO [Nothing Per Oral Diet] [DIET] 06/18/16 00:11 Metoprolol Tartrate [Lopressor] 2.5 mg IVPUSH Q4H PRN 06/18/16 04:19 Acetaminophen [Tylenol] 650 mg RECTAL Q6H PRN 06/18/16 09:00 Enoxaparin [Lovenox] 40 mg SUBCUT DAILY FLUoxetine [PROzac] 10 mg PO DAILY 06/18/16 10:04 Vancomycin Pharmacy to Dose [Pharmacy to Dose - Vancomycin] 0 dose .XX ASDIRECTED PRN 06/18/16 10:30 levETIRAcetam [Keppra] 1,000 mg PO BID 06/18/16 11:00 Vancomycin [Vancocin] 1 gm Sodium Chloride 0.9% [Normal Saline] 250 ml IV Q12H 06/18/16 11:07 Magnesium Sulfate/Water [Magnesium Sulfate 2 GM in Water 50 ML] 2 gm Premix Bag 1 bag IV ONETIME 06/18/16 20:06 Oral Care [OM.PC] QID 06/19/16 05:00 BMP [BASIC METABOLIC PANEL,BMP] [CHEM] DAILY CBC WITH AUTO DIFF [HEME] DAILY CRP [C-REACTIVE PROTEIN] [CHEM] DAILY MAGNESIUM [CHEM] DAILY 06/19/16 10:30 VANCOMYCIN TROUGH [CHEM] Timed 06/19/16 20:06 Oral Care [OM.PC] QID 06/20/16 05:00 BMP [BASIC METABOLIC PANEL,BMP] [CHEM] DAILY CBC WITH AUTO DIFF [HEME] DAILY - Plan Plan:: Impression: Febrile with UTI Resolved AMS; more alert without SZ like activity Risk of aspiration, HOP>45 degrees Plan: ICU IV ATBs, levoquin, empirically; vancomycin scheduled received 1 dose after Gm pos cocci noted. Resume oral meds Await Keppra level Swallow study, will start puree diet Hydrate as needed, have reduced rate for now; will DC after good oral intake. BP/HR control, address cause of elevation DVT/GI prophylaxis Consult PT/OT/SW LOS may be 96 hours, await response to therapy.
[2016-06-18] MEDS ORDERED: Diphtheria,Pertussis(Acell),Tetanus Vaccine 0.5 ML SDV inactive IM ONE (11:51)
[2016-06-18] MEDS: levETIRAcetam 1,000 MG in Sodium Chloride 0.9% 100 ML IV SCH (12:26)
[2016-06-18] MEDS ORDERED: Sodium Chloride 0.9% 500 ML IV SCH (16:45)
[2016-06-18] MEDS: Magnesium Oxide 400 MG Tab PO SCH (17:36)
[2016-06-18] MEDS: Levofloxacin/Dextrose 5%-Water 750 MG in Premix Bag 1 BAG IV SCH (18:47)
[2016-06-19] MEDS: Acetaminophen 650 MG Supp RECTAL PRN ×2 (00:22→15:07)
[2016-06-19] MEDS: D5 1/2 NS w/ 20 mEq/L KCl 1,000 ML IV SCH ×2 (01:23→16:24)
[2016-06-19] MEDS: Insulin Aspart 100 Units/ML 3 ML Pen SUBCUT SCH ×4 (06:47→22:01)
--- NOTE | 2016-06-19 06:53 | CR ---
Chest: Frontal view of the chest was obtained utilizing portable technique. Comparison: Previous chest x-ray of 06/16/16. Heart size and mediastinum are normal. Scoliosis noted within the spine. Lungs are clear. Bony structures are osteopenic. Impression: 1. Incidental findings. Nothing acute is identified on portable chest x-ray. Diagnostic code #2 I agree with preliminary report issued by [email or web address] (preliminary report dictated on 06/17/16, 5:00 PM Central Time)
[2016-06-19] MEDS: Baclofen 10 MG Tab PO SCH (07:59)
[2016-06-19] MEDS: levETIRAcetam 500 MG Tab PO SCH ×2 (07:59→20:46)
[2016-06-19] MEDS: Enoxaparin 40 MG/0.4 ML Syringe SUBCUT SCH (08:00)
[2016-06-19] MEDS: FLUoxetine 10 MG Cap PO SCH (08:01)
--- NOTE | 2016-06-19 08:33 | CR ---
Chest: Portable view of the chest was obtained. Comparison: Previous chest x-ray of 07/21/15. Heart size is normal. Mild tortuosity of the thoracic aorta is seen. Lungs are clear. Bony structures are grossly intact. Impression: 1. Nothing acute is identified on portable chest x-ray. Diagnostic code #2
--- NOTE | 2016-06-19 08:33 | CT ---
Head CT Technique: Multiple axial sections through the brain were obtained. Intravenous contrast was not utilized. Comparison: Previous head CT study of 04/06/14. Findings: Ventricles along with basal cisterns and sulci over the convexities are moderately prominent. 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 These appear fairly stable from prior exam. Small vessel ischemic demyelination change also seen within the periventricular and subcortical white matter. No other abnormal parenchymal densities are seen. No evidence of intracranial hemorrhage. No midline shift or mass effect is seen. Bone window settings were reviewed which show no discrete calvarial abnormality. Visualized sinuses are clear. Impression: 1. Senescent change. Nothing acute is appreciated on noncontrast head CT study. Diagnostic code #2 I agree with preliminary report issued by [facility] (preliminary report dictated on 06/17/16, 12:54 PM Central Time)
[2016-06-19] MEDS ORDERED: Bisacodyl 10 MG Supp RECTAL ONE (08:42)
[2016-06-19] MEDS ORDERED: Baclofen 10 MG Tab PO SCH ×4 (09:23→21:00)
[2016-06-19] MEDS ORDERED: tiZANidine 4 MG Tab PO STA (09:37)
[2016-06-19] MEDS ORDERED: Baclofen 10 MG Tab PO ONE ×2 (09:37→17:16)
[2016-06-19] MEDS ORDERED: Piperacillin/Tazobactam 4.5 GM in Sodium Chloride 0.9% 100 ML IV ONE (13:00)
[2016-06-19] MEDS: tiZANidine 4 MG Tab PO SCH ×3 (17:13→23:24)
[2016-06-19] MEDS: Magnesium Oxide 400 MG Tab PO SCH (17:18)
[2016-06-19] MEDS ORDERED: Magnesium Sulfate/Water 2 GM in Premix Bag 1 BAG IV ONE (17:33)
--- NOTE | 2016-06-19 17:37 | PCM.PN ---
- General Info Date of Service: 06/19/16 Functional Status: Reports: tolerating diet, urinating - Review of Systems General: Reports: No Symptoms HEENT: Reports: no symptoms Pulmonary: Reports: no symptoms Cardiovascular: Reports: No Symptoms Gastrointestinal: Reports: No symptoms Genitourinary: Reports: no symptoms Musculoskeletal: Reports: no symptoms Skin: Reports: no symptoms Neurological: Reports: No Symptoms Psychiatric: Reports: no symptoms - Patient Data Vitals - most recent: Last Vital Signs Temp 36.8 C 06/19/16 17:24 Pulse 88 06/19/16 17:24 Resp 27 H 06/19/16 15:08 BP 105/60 06/19/16 15:08 Pulse Ox 95 06/19/16 15:08 Weight - most recent: 74.072 kg I&O - last 24 hours: Intake & Output 06/19/16 06/19/16 06/19/16 06:59 14:59 22:59 Intake Total 987 590 715 Balance 987 590 715 Lab Results last 24 hrs: Laboratory Results - last 24 hr 06/17/16 06/18/16 06/18/16 Range/Units 15:39 16:32 21:06 WBC (3.98-10.04) K/mm3 RBC (3.98-5.22) M/mm3 Hgb (11.2-15.7) gm/L Hct (34.1-44.9) % MCV (79.4-94.8) fl MCH (25.6-32.2) pg MCHC (32.2-35.5) g/dl RDW Std Deviation (36.4-46.3) fL Plt Count (182-369) K/mm3 MPV (9.4-12.3) fl Neut % (Auto) (34.0-71.1) % Lymph % (Auto) (19.3-51.7) % Jay % (Auto) (4.7-12.5) % Eos % (Auto) (0.7-5.8) Baso % (Auto) (0.1-1.2) % Neut # (Auto) (1.56-6.13) K/mm3 Lymph # (Auto) (1.18-3.74) K/mm3 Jay # (Auto) (0.24-0.36) K/mm3 Eos # (Auto) (0.04-0.36) K/mm3 Baso # (Auto) (0.01-0.08) K/mm3 Manual Slide Review Sodium (136-145) mEq/L Potassium (3.5-5.1) mEq/L Chloride (98-107) mEq/L Carbon Dioxide (21-32) mEq/L Anion Gap (5-15) BUN (7-18) mg/dL Creatinine (0.55-1.02) mg/dL Est Cr Clr Drug Dosing mL/min Estimated GFR (MDRD) (>60) mL/min BUN/Creatinine Ratio (14-18) Glucose (74-106) mg/dL POC Glucose 122 H 145 H 160 H (70-105) mg/dL Calcium (8.5-10.1) mg/dL Magnesium (1.8-2.4) mg/dl C-Reactive Protein (<1.0) mg/dL Vancomycin Trough (10.0-20.0) 06/19/16 06/19/16 06/19/16 Range/Units 06:19 06:20 06:20 WBC 12.60 H (3.98-10.04) K/mm3 RBC 3.98 (3.98-5.22) M/mm3 Hgb 11.4 (11.2-15.7) gm/L Hct 33.5 L (34.1-44.9) % MCV 84.2 (79.4-94.8) fl MCH 28.6 (25.6-32.2) pg MCHC 34.0 (32.2-35.5) g/dl RDW Std Deviation 50.1 H (36.4-46.3) fL Plt Count 187 (182-369) K/mm3 MPV 10.1 (9.4-12.3) fl Neut % (Auto) 65.4 (34.0-71.1) % Lymph % (Auto) 20.4 (19.3-51.7) % Jay % (Auto) 9.1 (4.7-12.5) % Eos % (Auto) 4.0 (0.7-5.8) Baso % (Auto) 0.2 (0.1-1.2) % Neut # (Auto) 8.23 H (1.56-6.13) K/mm3 Lymph # (Auto) 2.57 (1.18-3.74) K/mm3 Jay # (Auto) 1.15 H (0.24-0.36) K/mm3 Eos # (Auto) 0.51 H (0.04-0.36) K/mm3 Baso # (Auto) 0.03 (0.01-0.08) K/mm3 Manual Slide Review Normal smear Sodium 135 L (136-145) mEq/L Potassium 3.5 (3.5-5.1) mEq/L Chloride 103 (98-107) mEq/L Carbon Dioxide 23 (21-32) mEq/L Anion Gap 12.5 (5-15) BUN 9 (7-18) mg/dL Creatinine 0.9 (0.55-1.02) mg/dL Est Cr Clr Drug Dosing 67.67 mL/min Estimated GFR (MDRD) > 60 (>60) mL/min BUN/Creatinine Ratio 10.0 L (14-18) Glucose 119 H (74-106) mg/dL POC Glucose 121 H (70-105) mg/dL Calcium 8.3 L (8.5-10.1) mg/dL Magnesium 1.8 (1.8-2.4) mg/dl C-Reactive Protein 32.3 H* (<1.0) mg/dL Vancomycin Trough (10.0-20.0) 06/19/16 Range/Units 10:50 WBC (3.98-10.04) K/mm3 RBC (3.98-5.22) M/mm3 Hgb (11.2-15.7) gm/L Hct (34.1-44.9) % MCV (79.4-94.8) fl MCH (25.6-32.2) pg MCHC (32.2-35.5) g/dl RDW Std Deviation (36.4-46.3) fL Plt Count (182-369) K/mm3 MPV (9.4-12.3) fl Neut % (Auto) (34.0-71.1) % Lymph % (Auto) (19.3-51.7) % Jay % (Auto) (4.7-12.5) % Eos % (Auto) (0.7-5.8) Baso % (Auto) (0.1-1.2) % Neut # (Auto) (1.56-6.13) K/mm3 Lymph # (Auto) (1.18-3.74) K/mm3 Jay # (Auto) (0.24-0.36) K/mm3 Eos # (Auto) (0.04-0.36) K/mm3 Baso # (Auto) (0.01-0.08) K/mm3 Manual Slide Review Sodium (136-145) mEq/L Potassium (3.5-5.1) mEq/L Chloride (98-107) mEq/L Carbon Dioxide (21-32) mEq/L Anion Gap (5-15) BUN (7-18) mg/dL Creatinine (0.55-1.02) mg/dL Est Cr Clr Drug Dosing mL/min Estimated GFR (MDRD) (>60) mL/min BUN/Creatinine Ratio (14-18) Glucose (74-106) mg/dL POC Glucose (70-105) mg/dL Calcium (8.5-10.1) mg/dL Magnesium (1.8-2.4) mg/dl C-Reactive Protein (<1.0) mg/dL Vancomycin Trough 17.9 (10.0-20.0) Med Orders - Current: Current Medications Acetaminophen (Tylenol) 650 mg RECTAL Q6H PRN PRN Reason: Fever Last Admin: 06/19/16 15:07 Dose: 650 mg Baclofen (Lioresal) 5 mg PO TID [facility] Baclofen (Lioresal) 5 mg PO BID@1700,2300 [facility] Stop: 06/19/16 23:01 Dextrose/Water (Dextrose 50% In Water) 50 ml IVPUSH ASDIRECTED PRN PRN Reason: Hypoglycemia Enoxaparin Sodium (Lovenox) 40 mg SUBCUT DAILY [facility] Last Admin: 06/19/16 08:00 Dose: 40 mg Fluoxetine HCl (Prozac) 10 mg PO DAILY [facility] Last Admin: 06/19/16 08:01 Dose: 10 mg Hydralazine HCl (Apresoline) 20 mg IVPUSH Q8H PRN PRN Reason: Hypertension Potassium Chloride/Dextrose/Sod Cl (D5 1/2 Ns W/ 20 Meq/L Kcl) 1,000 mls @ 70 mls/hr IV ASDIRECTED [facility] Last Admin: 06/19/16 16:24 Dose: 70 mls/hr Vancomycin HCl 1 gm/ Sodium (Chloride) 250 mls @ 167 mls/hr IV Q12H [facility] Last Admin: 06/19/16 11:43 Dose: 167 mls/hr Sodium Chloride (Normal Saline) 500 mls @ 999 mls/min IV .BOLUS [facility] Last Admin: 06/18/16 16:45 Dose: 999 mls/min Piperacillin Sod/Tazobactam (Sod 4.5 gm/ Sodium Chloride) 100 mls @ 25 mls/hr IV Q8H [facility] Magnesium Sulfate 2 gm/ Premix 50 mls @ 25 mls/hr IV ONETIME ONE Stop: 06/19/16 19:32 Insulin Aspart (Novolog) 0 unit SUBCUT QIDACANDBED [facility] PRN Reason: Protocol Last Admin: 06/19/16 17:15 Dose: Not Given Levetiracetam (Keppra) 1,000 mg PO BID [facility] Last Admin: 06/19/16 07:59 Dose: 1,000 mg Lorazepam (Ativan) 1 mg IVPUSH Q4H PRN PRN Reason: Seizures Magnesium Oxide (Magnesium Oxide) 400 mg PO QPM [facility] Last Admin: 06/19/16 17:18 Dose: 400 mg Metoprolol Tartrate (Lopressor) 2.5 mg IVPUSH Q4H PRN PRN Reason: heart rate Last Admin: 06/18/16 01:39 Dose: 2.5 mg Senna/Docusate Sodium (Senna Plus) 2 tab PO BID [facility] Last Admin: 06/19/16 08:00 Dose: 2 tab Sodium Chloride (Saline Flush) 10 ml FLUSH ASDIRECTED PRN PRN Reason: Keep Vein Open Last Admin: 06/16/16 20:18 Dose: 10 ml Tizanidine HCl (Zanaflex) 1 mg PO BID@1700,2300 [facility] Stop: 06/19/16 23:01 Last Admin: 06/19/16 17:13 Dose: 1 mg Tizanidine HCl (Zanaflex) 1 mg PO TID [facility] Vancomycin HCl (Pharmacy To Dose - Vancomycin) 0 dose .XX ASDIRECTED PRN PRN Reason: RX DOSE Discontinued Medications Baclofen (Lioresal) 30 mg PO TID [facility] Last Admin: 06/18/16 15:29 Dose: 30 mg Baclofen (Lioresal) 5 mg PO TID [facility] Last Admin: 06/19/16 07:59 Dose: 5 mg Baclofen (Lioresal) 10 mg PO TID [facility] Baclofen (Lioresal) 5 mg PO ONETIME ONE Stop: 06/19/16 09:38 Last Admin: 06/19/16 10:20 Dose: 5 mg Baclofen (Lioresal) 5 mg PO TID [facility] Baclofen (Lioresal) 5 mg PO BID@1700,2300 [facility] Stop: 06/19/16 23:01 Baclofen (Lioresal) 5 mg PO ONETIME ONE Stop: 06/19/16 17:17 Last Admin: 06/19/16 17:26 Dose: 5 mg Bisacodyl (Dulcolax) 10 mg RECTAL ONETIME ONE Stop: 06/19/16 08:43 Last Admin: 06/19/16 09:03 Dose: 10 mg Diphtheria/Tetanus/Acell Pertussis (Boostrix) 0.5 ml IM .ONCE ONE Stop: 06/18/16 11:52 Last Admin: 06/18/16 12:24 Dose: Not Given Sodium Chloride (Normal Saline) 1,000 mls @ 999 mls/hr IV ONETIME ONE Stop: 06/16/16 20:50 Last Infusion: 06/16/16 22:13 Dose: Infused Ceftriaxone Sodium 1 gm/ (Sodium Chloride) 100 mls @ 200 mls/hr IV ONETIME ONE Stop: 06/16/16 22:03 Last Admin: 06/16/16 22:13 Dose: 200 mls/hr Sodium Chloride (Normal Saline) 1,000 mls @ 125 mls/hr IV ONETIME ONE Stop: 06/17/16 05:56 Last Admin: 06/16/16 22:13 Dose: 125 mls/hr Levofloxacin/Dextrose 750 mg/ (Premix) 150 mls @ 100 mls/hr IV Q24H [facility] Last Admin: 06/18/16 18:47 Dose: Not Given Levetiracetam 1,000 mg/ Sodium (Chloride) 110 mls @ 400 mls/hr IV ONETIME ONE Stop: 06/17/16 15:38 Last Admin: 06/17/16 16:07 Dose: 400 mls/hr Levetiracetam 1,000 mg/ Sodium (Chloride) 110 mls @ 400 mls/hr IV Q12H [facility] Last Admin: 06/18/16 12:26 Dose: Not Given Vancomycin HCl 1 gm/ Sodium (Chloride) 250 mls @ 250 mls/hr IV ONETIME ONE Stop: 06/18/16 00:03 Last Admin: 06/17/16 23:18 Dose: 250 mls/hr Magnesium Sulfate 2 gm/ Premix 50 mls @ 25 mls/hr IV ONETIME ONE Stop: 06/18/16 13:06 Last Admin: 06/18/16 12:30 Dose: 25 mls/hr Piperacillin Sod/Tazobactam (Sod 4.5 gm/ Sodium Chloride) 100 mls @ 200 mls/hr IV ONETIME ONE Stop: 06/19/16 13:29 Last Admin: 06/19/16 13:47 Dose: 200 mls/hr Levetiracetam (Keppra) 1,000 mg PO BID [facility] Last Admin: 06/17/16 20:27 Dose: Not Given Lorazepam (Ativan) 1 mg IVPUSH ONETIME ONE Stop: 06/17/16 15:31 Last Admin: 06/17/16 16:03 Dose: 1 mg Metoprolol Tartrate (Lopressor) 2.5 mg IVPUSH Q6H PRN PRN Reason: heart rate Last Admin: 06/17/16 21:28 Dose: 2.5 mg Potassium Chloride (Potassium Chloride) 40 meq PO ONETIME ONE Stop: 06/18/16 11:08 Last Admin: 06/18/16 12:33 Dose: 40 meq Tizanidine HCl (Zanaflex) 2 mg PO TID [facility] Last Admin: 06/18/16 15:29 Dose: 2 mg Tizanidine HCl (Zanaflex) 2 mg PO ONETIME STA Stop: 06/19/16 09:38 Last Admin: 06/19/16 10:20 Dose: 2 mg - Exam Quality Assessment: urine catheter, DVT prophylaxis General: alert, oriented, no acute distress HEENT: Pupils equal, Pupils reactive, EOMI Neck: trachea midline, no JVD Lungs: Normal respiratory effort Cardiovascular: Regular Rate Abdomen: bowel sounds present, soft, no tenderness, no distension (Female) Exam: Deferred Back Exam: normal inspection Extremities: normal pulses Peripheral Pulses: 2+: radial (L), radial (R) Skin: warm Neurological: no new focal deficit Psy/Mental Status: alert - Problem List Review Problem List Initiated/Reviewed/Updated: Yes - My Orders Last 24 Hours: My Active Orders 06/18/16 16:45 Sodium Chloride 0.9% [Normal Saline] 500 ml IV .BOLUS 06/18/16 20:06 Oral Care [OM.PC] QID 06/19/16 15:17 Blood Culture x2 Reflex Set [OM.PC] Urgent 06/19/16 15:34 CULTURE BLOOD [BC] Stat 06/19/16 17:00 tiZANidine [Zanaflex] 1 mg PO BID@1700,2300 06/19/16 17:07 Baclofen [Lioresal] 5 mg PO BID@1700,2300 06/19/16 17:33 Magnesium Sulfate/Water [Magnesium Sulfate 2 GM in Water 50 ML] 2 gm Premix Bag 1 bag IV ONETIME 06/19/16 20:06 Oral Care [OM.PC] QID 06/19/16 21:00 Piperacillin/Tazobactam [Zosyn] 4.5 gm Sodium Chloride 0.9% [Normal Saline] 100 ml IV Q8H 06/20/16 05:00 BMP [BASIC METABOLIC PANEL,BMP] [CHEM] DAILY CBC WITH AUTO DIFF [HEME] DAILY 06/20/16 09:00 Baclofen [Lioresal] 5 mg PO TID tiZANidine [Zanaflex] 1 mg PO TID - Plan Plan:: Impression: Febrile with UTI AMS, questionable SZ like activity; resolved Risk of aspiration Puree diet aas ordered Drowsiness after Zanaflex and Baclofen Plan: ICU IV ATBs Adjust meds to avoid over sedation. Await Keppra level Swallow study Hydrate as needed, have reduced rate for now. BP/HR control, address cause of elevation DVT/GI prophylaxis Consult PT/OT/SW LOS, unknown.
[2016-06-19] MEDS ORDERED: Albuterol 0.083% 2.5 MG/3 ML Neb Soln NEB ONE (17:52)
[2016-06-19] MEDS ORDERED: Albuterol 0.021% 0.63 MG/3 ML Neb Soln NEB ONE (17:52)
[2016-06-19] MEDS ORDERED: Albuterol 0.083% 2.5 MG/3 ML Neb Soln ONE (17:53)
--- NOTE | 2016-06-19 18:35 | CR ---
Chest: Portable view of the chest was obtained. Comparison: Previous chest x-ray of 06/17/16. Heart size and mediastinum are normal. Lungs are clear. Bony structures show stable scoliosis and appear grossly intact. Impression: 1. Nothing acute is seen. No significant change is seen from previous chest x-ray. Diagnostic code #2
[2016-06-19] MEDS: Albuterol 0.083% 2.5 MG/3 ML Neb Soln NEB SCH (20:33)
[2016-06-19] MEDS: Piperacillin/Tazobactam 4.5 GM in Sodium Chloride 0.9% 100 ML IV SCH (20:47)
[2016-06-19] MEDS ORDERED: Albuterol 0.021% 0.63 MG/3 ML Neb Soln NEB SCH (21:00)
[2016-06-20] MEDS: Piperacillin/Tazobactam 4.5 GM in Sodium Chloride 0.9% 100 ML IV SCH ×3 (04:44→20:51)
[2016-06-20] MEDS: Albuterol 0.083% 2.5 MG/3 ML Neb Soln NEB SCH ×4 (05:37→20:51)
[2016-06-20] MEDS: Insulin Aspart 100 Units/ML 3 ML Pen SUBCUT SCH ×4 (06:39→20:59)
[2016-06-20] MEDS: D5 1/2 NS w/ 20 mEq/L KCl 1,000 ML IV SCH (07:10)
[2016-06-20] MEDS: FLUoxetine 10 MG Cap PO SCH (08:07)
[2016-06-20] MEDS: tiZANidine 4 MG Tab PO SCH ×3 (08:08→20:47)
[2016-06-20] MEDS: levETIRAcetam 500 MG Tab PO SCH ×2 (08:08→20:47)
[2016-06-20] MEDS: Enoxaparin 40 MG/0.4 ML Syringe SUBCUT SCH (08:09)
[2016-06-20] MEDS ORDERED: Baclofen 10 MG Tab PO SCH ×3 (09:00→15:00)
[2016-06-20] MEDS ORDERED: POTASSIUM CHLORIDE IV SCH (09:51)
[2016-06-20] MEDS ORDERED: KCL IV SCH (09:51)
[2016-06-20] MEDS ORDERED: 1/2 NS W IV SCH (09:51)
[2016-06-20] MEDS ORDERED: D5 IV SCH (09:51)
--- NOTE | 2016-06-20 10:00 | CR ---
Chest: Portable view of the chest was obtained. Comparison: Previous chest x-ray of 06/19/16. Heart size and mediastinum are within normal limits. Lung markings slightly increased believed to be accentuated from portable technique and stable from prior exam. No acute pulmonary densities are felt to be present. Bony structures are grossly intact. Impression: 1. Nothing acute is seen on portable chest x-ray. Diagnostic code #1
[2016-06-20] MEDS ORDERED: D5 1/2 NS w/ 40 mEq/L KCl 1,000 ML IV SCH ×2 (10:15)
--- NOTE | 2016-06-20 12:23 | PCM.PN ---
- General Info Date of Service: 06/20/16 Functional Status: Reports: tolerating diet (except thickened liquids), urinating - Review of Systems General: Reports: No Symptoms HEENT: Reports: no symptoms Pulmonary: Reports: no symptoms Cardiovascular: Reports: No Symptoms Gastrointestinal: Reports: No symptoms Genitourinary: Reports: no symptoms Musculoskeletal: Reports: no symptoms Skin: Reports: no symptoms Neurological: Reports: No Symptoms Psychiatric: Reports: no symptoms - Patient Data Vitals - most recent: Last Vital Signs Temp 36.5 C 06/20/16 07:34 Pulse 99 06/20/16 07:34 Resp 16 06/20/16 07:34 BP 110/97 H 06/20/16 07:34 Pulse Ox 95 06/20/16 09:20 Weight - most recent: 73.482 kg I&O - last 24 hours: Intake & Output 06/19/16 06/20/16 06/20/16 22:59 06:59 14:59 Intake Total 715 1311 120 Balance 715 1311 120 Lab Results last 24 hrs: Laboratory Results - last 24 hr 06/19/16 06/19/16 06/19/16 Range/Units 11:25 17:04 21:54 WBC (3.98-10.04) K/mm3 RBC (3.98-5.22) M/mm3 Hgb (11.2-15.7) gm/L Hct (34.1-44.9) % MCV (79.4-94.8) fl MCH (25.6-32.2) pg MCHC (32.2-35.5) g/dl RDW Std Deviation (36.4-46.3) fL Plt Count (182-369) K/mm3 MPV (9.4-12.3) fl Neut % (Auto) (34.0-71.1) % Lymph % (Auto) (19.3-51.7) % [place] % (Auto) (4.7-12.5) % Eos % (Auto) (0.7-5.8) Baso % (Auto) (0.1-1.2) % Neut # (Auto) (1.56-6.13) K/mm3 Lymph # (Auto) (1.18-3.74) K/mm3 [place] # (Auto) (0.24-0.36) K/mm3 Eos # (Auto) (0.04-0.36) K/mm3 Baso # (Auto) (0.01-0.08) K/mm3 Manual Slide Review Sodium (136-145) mEq/L Potassium (3.5-5.1) mEq/L Chloride (98-107) mEq/L Carbon Dioxide (21-32) mEq/L Anion Gap (5-15) BUN (7-18) mg/dL Creatinine (0.55-1.02) mg/dL Est Cr Clr Drug Dosing mL/min Estimated GFR (MDRD) (>60) mL/min BUN/Creatinine Ratio (14-18) Glucose (74-106) mg/dL POC Glucose 102 119 H 152 H (70-105) mg/dL Calcium (8.5-10.1) mg/dL 06/20/16 06/20/16 06/20/16 Range/Units 06:37 06:40 06:40 WBC 10.77 H (3.98-10.04) K/mm3 RBC 4.01 (3.98-5.22) M/mm3 Hgb 11.5 (11.2-15.7) gm/L Hct 33.9 L (34.1-44.9) % MCV 84.5 (79.4-94.8) fl MCH 28.7 (25.6-32.2) pg MCHC 33.9 (32.2-35.5) g/dl RDW Std Deviation 49.1 H (36.4-46.3) fL Plt Count 280 (182-369) K/mm3 MPV 9.5 (9.4-12.3) fl Neut % (Auto) 66.8 (34.0-71.1) % Lymph % (Auto) 24.6 (19.3-51.7) % [place] % (Auto) 6.7 (4.7-12.5) % Eos % (Auto) 1.0 (0.7-5.8) Baso % (Auto) 0.6 (0.1-1.2) % Neut # (Auto) 7.19 H (1.56-6.13) K/mm3 Lymph # (Auto) 2.65 (1.18-3.74) K/mm3 [place] # (Auto) 0.72 H (0.24-0.36) K/mm3 Eos # (Auto) 0.11 (0.04-0.36) K/mm3 Baso # (Auto) 0.07 (0.01-0.08) K/mm3 Manual Slide Review Normal smear Sodium 137 (136-145) mEq/L Potassium 3.3 L (3.5-5.1) mEq/L Chloride 103 (98-107) mEq/L Carbon Dioxide 23 (21-32) mEq/L Anion Gap 14.3 (5-15) BUN 7 (7-18) mg/dL Creatinine 0.8 (0.55-1.02) mg/dL Est Cr Clr Drug Dosing 76.13 mL/min Estimated GFR (MDRD) > 60 (>60) mL/min BUN/Creatinine Ratio 8.8 L (14-18) Glucose 117 H (74-106) mg/dL POC Glucose 129 H (70-105) mg/dL Calcium 8.6 (8.5-10.1) mg/dL Med Orders - Current: Current Medications Acetaminophen (Tylenol) 650 mg RECTAL Q6H PRN PRN Reason: Fever Last Admin: 06/19/16 15:07 Dose: 650 mg Albuterol (Proventil Neb Soln) 2.5 mg NEB QIDRT [facility] Last Admin: 06/20/16 09:18 Dose: 2.5 mg Baclofen (Lioresal) 5 mg PO TID [facility] Last Admin: 06/20/16 08:08 Dose: 5 mg Dextrose/Water (Dextrose 50% In Water) 50 ml IVPUSH ASDIRECTED PRN PRN Reason: Hypoglycemia Enoxaparin Sodium (Lovenox) 40 mg SUBCUT DAILY [facility] Last Admin: 06/20/16 08:09 Dose: 40 mg Fluoxetine HCl (Prozac) 10 mg PO DAILY [facility] Last Admin: 06/20/16 08:07 Dose: 10 mg Hydralazine HCl (Apresoline) 20 mg IVPUSH Q8H PRN PRN Reason: Hypertension Vancomycin HCl 1 gm/ Sodium (Chloride) 250 mls @ 167 mls/hr IV Q12H [facility] Last Admin: 06/20/16 10:50 Dose: 167 mls/hr Sodium Chloride (Normal Saline) 500 mls @ 999 mls/min IV .BOLUS [facility] Last Admin: 06/18/16 16:45 Dose: 999 mls/min Piperacillin Sod/Tazobactam (Sod 4.5 gm/ Sodium Chloride) 100 mls @ 25 mls/hr IV Q8H [facility] Last Admin: 06/20/16 04:44 Dose: 25 mls/hr Potassium Chloride/Dextrose/Sod Cl (D5 1/2 Ns W/ 40 Meq/L Kcl) 1,000 mls @ 69.307 mls/hr IV ASDIRECTED [facility] Last Admin: 06/20/16 11:06 Dose: 69.307 mls/hr Insulin Aspart (Novolog) 0 unit SUBCUT QIDACANDBED [facility] PRN Reason: Protocol Last Admin: 06/20/16 11:35 Dose: Not Given Levetiracetam (Keppra) 1,000 mg PO BID [facility] Last Admin: 06/20/16 08:08 Dose: 1,000 mg Lorazepam (Ativan) 1 mg IVPUSH Q4H PRN PRN Reason: Seizures Magnesium Oxide (Magnesium Oxide) 400 mg PO QPM [facility] Last Admin: 06/19/16 17:18 Dose: 400 mg Metoprolol Tartrate (Lopressor) 2.5 mg IVPUSH Q4H PRN PRN Reason: heart rate Last Admin: 06/18/16 01:39 Dose: 2.5 mg Senna/Docusate Sodium (Senna Plus) 2 tab PO BID [facility] Last Admin: 06/20/16 08:07 Dose: 2 tab Sodium Chloride (Saline Flush) 10 ml FLUSH ASDIRECTED PRN PRN Reason: Keep Vein Open Last Admin: 06/16/16 20:18 Dose: 10 ml Tizanidine HCl (Zanaflex) 1 mg PO TID [facility] Last Admin: 06/20/16 08:08 Dose: 1 mg Vancomycin HCl (Pharmacy To Dose - Vancomycin) 0 dose .XX ASDIRECTED PRN PRN Reason: RX DOSE Discontinued Medications Albuterol (Proventil Neb Soln) 0.63 mg NEB ONETIME ONE Stop: 06/19/16 17:53 Last Admin: 06/19/16 18:02 Dose: Not Given Albuterol (Proventil Neb Soln) 2.5 mg NEB ONETIME ONE Stop: 06/19/16 17:53 Last Admin: 06/19/16 18:01 Dose: Not Given Albuterol (Proventil Neb Soln) Confirm Administered Dose 2.5 mg .ROUTE .STK-MED ONE Stop: 06/19/16 17:54 Last Admin: 06/19/16 17:58 Dose: 2.5 mg Albuterol (Proventil Neb Soln) 0.63 mg NEB QIDRT [facility] Baclofen (Lioresal) 30 mg PO TID [facility] Last Admin: 06/18/16 15:29 Dose: 30 mg Baclofen (Lioresal) 5 mg PO TID [facility] Last Admin: 06/19/16 07:59 Dose: 5 mg Baclofen (Lioresal) 10 mg PO TID [facility] Last Admin: 06/19/16 19:13 Dose: Not Given Baclofen (Lioresal) 5 mg PO ONETIME ONE Stop: 06/19/16 09:38 Last Admin: 06/19/16 10:20 Dose: 5 mg Baclofen (Lioresal) 5 mg PO TID [facility] Baclofen (Lioresal) 5 mg PO BID@1700,2300 [facility] Stop: 06/19/16 23:01 Last Admin: 06/19/16 19:13 Dose: Not Given Baclofen (Lioresal) 5 mg PO BID@1700,2300 [facility] Stop: 06/19/16 23:01 Last Admin: 06/19/16 23:25 Dose: 5 mg Baclofen (Lioresal) 5 mg PO ONETIME ONE Stop: 06/19/16 17:17 Last Admin: 06/19/16 17:26 Dose: 5 mg Bisacodyl (Dulcolax) 10 mg RECTAL ONETIME ONE Stop: 06/19/16 08:43 Last Admin: 06/19/16 09:03 Dose: 10 mg Diphtheria/Tetanus/Acell Pertussis (Boostrix) 0.5 ml IM .ONCE ONE Stop: 06/18/16 11:52 Last Admin: 06/18/16 12:24 Dose: Not Given Sodium Chloride (Normal Saline) 1,000 mls @ 999 mls/hr IV ONETIME ONE Stop: 06/16/16 20:50 Last Infusion: 06/16/16 22:13 Dose: Infused Ceftriaxone Sodium 1 gm/ (Sodium Chloride) 100 mls @ 200 mls/hr IV ONETIME ONE Stop: 06/16/16 22:03 Last Admin: 06/16/16 22:13 Dose: 200 mls/hr Sodium Chloride (Normal Saline) 1,000 mls @ 125 mls/hr IV ONETIME ONE Stop: 06/17/16 05:56 Last Admin: 06/16/16 22:13 Dose: 125 mls/hr Levofloxacin/Dextrose 750 mg/ (Premix) 150 mls @ 100 mls/hr IV Q24H [facility] Last Admin: 06/18/16 18:47 Dose: Not Given Potassium Chloride/Dextrose/Sod Cl (D5 1/2 Ns W/ 20 Meq/L Kcl) 1,000 mls @ 70 mls/hr IV ASDIRECTED [facility] Last Admin: 06/20/16 07:10 Dose: 70 mls/hr Levetiracetam 1,000 mg/ Sodium (Chloride) 110 mls @ 400 mls/hr IV ONETIME ONE Stop: 06/17/16 15:38 Last Admin: 06/17/16 16:07 Dose: 400 mls/hr Levetiracetam 1,000 mg/ Sodium (Chloride) 110 mls @ 400 mls/hr IV Q12H [facility] Last Admin: 06/18/16 12:26 Dose: Not Given Vancomycin HCl 1 gm/ Sodium (Chloride) 250 mls @ 250 mls/hr IV ONETIME ONE Stop: 06/18/16 00:03 Last Admin: 06/17/16 23:18 Dose: 250 mls/hr Magnesium Sulfate 2 gm/ Premix 50 mls @ 25 mls/hr IV ONETIME ONE Stop: 06/18/16 13:06 Last Admin: 06/18/16 12:30 Dose: 25 mls/hr Piperacillin Sod/Tazobactam (Sod 4.5 gm/ Sodium Chloride) 100 mls @ 200 mls/hr IV ONETIME ONE Stop: 06/19/16 13:29 Last Admin: 06/19/16 13:47 Dose: 200 mls/hr Magnesium Sulfate 2 gm/ Premix 50 mls @ 25 mls/hr IV ONETIME ONE Stop: 06/19/16 19:32 Last Admin: 06/19/16 18:08 Dose: 25 mls/hr Potassium Chloride 20 meq/Potassium Chloride/Dextrose/Sod Cl 1,010 mls @ 70 mls /hr IV ASDIRECTED [facility] Levetiracetam (Keppra) 1,000 mg PO BID [facility] Last Admin: 06/17/16 20:27 Dose: Not Given Lorazepam (Ativan) 1 mg IVPUSH ONETIME ONE Stop: 06/17/16 15:31 Last Admin: 06/17/16 16:03 Dose: 1 mg Metoprolol Tartrate (Lopressor) 2.5 mg IVPUSH Q6H PRN PRN Reason: heart rate Last Admin: 06/17/16 21:28 Dose: 2.5 mg Potassium Chloride (Potassium Chloride) 40 meq PO ONETIME ONE Stop: 06/18/16 11:08 Last Admin: 06/18/16 12:33 Dose: 40 meq Tizanidine HCl (Zanaflex) 2 mg PO TID [facility] Last Admin: 06/19/16 19:13 Dose: Not Given Tizanidine HCl (Zanaflex) 2 mg PO ONETIME STA Stop: 06/19/16 09:38 Last Admin: 06/19/16 10:20 Dose: 2 mg Tizanidine HCl (Zanaflex) 1 mg PO BID@1700,2300 [facility] Stop: 06/19/16 23:01 Last Admin: 06/19/16 23:24 Dose: 1 mg - Exam Quality Assessment: DVT prophylaxis General: alert, oriented, cooperative, no acute distress HEENT: Pupils equal, Pupils reactive, EOMI Neck: supple, trachea midline Lungs: Normal respiratory effort Cardiovascular: Regular Rate, Regular Rhythm Abdomen: bowel sounds present, soft, no tenderness, no distension (Female) Exam: Deferred Back Exam: normal inspection Extremities: normal pulses Skin: warm Neurological: no new focal deficit Psy/Mental Status: alert, normal affect, normal mood - Problem List Review Problem List Initiated/Reviewed/Updated: Yes - My Orders Last 24 Hours: My Active Orders 06/19/16 15:17 Blood Culture x2 Reflex Set [OM.PC] Urgent 06/19/16 15:34 CULTURE BLOOD [BC] Stat 06/19/16 17:54 RT Aerosol Therapy [RC] ASDIRECTED 06/19/16 20:06 Oral Care [OM.PC] QID 06/19/16 21:00 Albuterol [Proventil Neb Soln] 2.5 mg NEB QIDRT Piperacillin/Tazobactam [Zosyn] 4.5 gm Sodium Chloride 0.9% [Normal Saline] 100 ml IV Q8H 06/20/16 09:00 Baclofen [Lioresal] 5 mg PO TID tiZANidine [Zanaflex] 1 mg PO TID 06/20/16 10:15 D5 1/2 NS w/ 40 mEq/L KCl 1,000 ml IV ASDIRECTED 06/21/16 05:00 BMP [BASIC METABOLIC PANEL,BMP] [CHEM] DAILY CBC WITH AUTO DIFF [HEME] DAILY MAGNESIUM [CHEM] DAILY 06/22/16 05:00 BMP [BASIC METABOLIC PANEL,BMP] [CHEM] DAILY CBC WITH AUTO DIFF [HEME] DAILY MAGNESIUM [CHEM] DAILY 06/23/16 05:00 BMP [BASIC METABOLIC PANEL,BMP] [CHEM] DAILY CBC WITH AUTO DIFF [HEME] DAILY MAGNESIUM [CHEM] DAILY - Plan Plan:: Impression: AUTI, on 2 IV ATBs AMS, resolved Risk of aspiration; pulmonary toilet Puree diet as ordered; patient is not drinking enough fluids; Drowsiness after Zanaflex and Baclofen yesterday, with increase spasms off usual regimen. Family meeting, impromptu regarding PEG tube, patient is the decision maker. Has declined today, but will reconsider the option. Plan: ICU IV ATBs Adjust meds to avoid over sedation. Seems to tolerate baclofen 15 mg TID, zanaflex 1 mg TID, will follow. Await Keppra level Hydrate as needed, have reduced rate for now. BP/HR control, address cause of elevation DVT/GI prophylaxis Consult PT/OT/SW LOS>96 hours expected with slow response to therapy.
[2016-06-20] MEDS: Magnesium Oxide 400 MG Tab PO SCH (17:54)
[2016-06-20] MEDS: Baclofen 10 MG Tab PO SCH (20:47)
[2016-06-21] MEDS: D5 1/2 NS w/ 40 mEq/L KCl 1,000 ML IV SCH ×2 (01:16→15:33)
[2016-06-21] MEDS: Piperacillin/Tazobactam 4.5 GM in Sodium Chloride 0.9% 100 ML IV SCH ×3 (06:03→22:35)
[2016-06-21] MEDS: Insulin Aspart 100 Units/ML 3 ML Pen SUBCUT SCH ×4 (06:06→21:13)
[2016-06-21] MEDS: Albuterol 0.083% 2.5 MG/3 ML Neb Soln NEB SCH (06:15)
[2016-06-21] MEDS: Enoxaparin 40 MG/0.4 ML Syringe SUBCUT SCH (08:09)
[2016-06-21] MEDS: levETIRAcetam 500 MG Tab PO SCH ×2 (08:10→21:11)
[2016-06-21] MEDS: tiZANidine 4 MG Tab PO SCH ×3 (08:10→21:12)
[2016-06-21] MEDS: Baclofen 10 MG Tab PO SCH ×3 (08:10→21:11)
[2016-06-21] MEDS: FLUoxetine 10 MG Cap PO SCH (08:10)
[2016-06-21] MEDS ORDERED: Magnesium Sulfate/Water 2 GM in Premix Bag 1 BAG IV ONE (09:34)
--- NOTE | 2016-06-21 10:35 | PCM.PN ---
- General Info Date of Service: 06/21/16 Functional Status: Reports: tolerating diet (decrease oral intake), urinating - Review of Systems General: Reports: No Symptoms HEENT: Reports: no symptoms Pulmonary: Reports: no symptoms Cardiovascular: Reports: No Symptoms Gastrointestinal: Reports: No symptoms Genitourinary: Reports: no symptoms Musculoskeletal: Reports: no symptoms Skin: Reports: no symptoms Neurological: Reports: No Symptoms Psychiatric: Reports: no symptoms - Patient Data Vitals - most recent: Last Vital Signs Temp 36.2 C 06/21/16 08:00 Pulse 91 06/21/16 08:00 Resp 20 06/21/16 08:00 BP 155/105 H 06/21/16 08:00 Pulse Ox 96 06/21/16 08:00 Weight - most recent: 72.665 kg I&O - last 24 hours: Intake & Output 06/20/16 06/21/16 06/21/16 22:59 06:59 14:59 Intake Total 1702 1482 Balance 1702 1482 Lab Results last 24 hrs: Laboratory Results - last 24 hr 06/20/16 06/21/16 06/21/16 Range/Units 20:50 06:05 06:05 WBC 9.37 (3.98-10.04) K/mm3 RBC 3.82 L (3.98-5.22) M/mm3 Hgb 10.9 L (11.2-15.7) gm/L Hct 32.7 L (34.1-44.9) % MCV 85.6 (79.4-94.8) fl MCH 28.5 (25.6-32.2) pg MCHC 33.3 (32.2-35.5) g/dl RDW Std Deviation 50.8 H (36.4-46.3) fL Plt Count 308 (182-369) K/mm3 MPV 9.8 (9.4-12.3) fl Neut % (Auto) 55.6 (34.0-71.1) % Lymph % (Auto) 31.4 (19.3-51.7) % Barry % (Auto) 9.4 (4.7-12.5) % Eos % (Auto) 1.9 (0.7-5.8) Baso % (Auto) 1.3 H (0.1-1.2) % Neut # (Auto) 5.21 (1.56-6.13) K/mm3 Lymph # (Auto) 2.94 (1.18-3.74) K/mm3 Barry # (Auto) 0.88 H (0.24-0.36) K/mm3 Eos # (Auto) 0.18 (0.04-0.36) K/mm3 Baso # (Auto) 0.12 H (0.01-0.08) K/mm3 Manual Slide Review Normal smear Sodium 138 (136-145) mEq/L Potassium 4.1 (3.5-5.1) mEq/L Chloride 103 (98-107) mEq/L Carbon Dioxide 24 (21-32) mEq/L Anion Gap 15.1 H (5-15) BUN 3 L (7-18) mg/dL Creatinine 0.8 (0.55-1.02) mg/dL Est Cr Clr Drug Dosing 76.13 mL/min Estimated GFR (MDRD) > 60 (>60) mL/min BUN/Creatinine Ratio 3.8 L (14-18) Glucose 103 (74-106) mg/dL POC Glucose 128 H (70-105) mg/dL Calcium 8.9 (8.5-10.1) mg/dL Magnesium 1.5 L (1.8-2.4) mg/dl 06/21/16 Range/Units 06:06 WBC (3.98-10.04) K/mm3 RBC (3.98-5.22) M/mm3 Hgb (11.2-15.7) gm/L Hct (34.1-44.9) % MCV (79.4-94.8) fl MCH (25.6-32.2) pg MCHC (32.2-35.5) g/dl RDW Std Deviation (36.4-46.3) fL Plt Count (182-369) K/mm3 MPV (9.4-12.3) fl Neut % (Auto) (34.0-71.1) % Lymph % (Auto) (19.3-51.7) % Barry % (Auto) (4.7-12.5) % Eos % (Auto) (0.7-5.8) Baso % (Auto) (0.1-1.2) % Neut # (Auto) (1.56-6.13) K/mm3 Lymph # (Auto) (1.18-3.74) K/mm3 Barry # (Auto) (0.24-0.36) K/mm3 Eos # (Auto) (0.04-0.36) K/mm3 Baso # (Auto) (0.01-0.08) K/mm3 Manual Slide Review Sodium (136-145) mEq/L Potassium (3.5-5.1) mEq/L Chloride (98-107) mEq/L Carbon Dioxide (21-32) mEq/L Anion Gap (5-15) BUN (7-18) mg/dL Creatinine (0.55-1.02) mg/dL Est Cr Clr Drug Dosing mL/min Estimated GFR (MDRD) (>60) mL/min BUN/Creatinine Ratio (14-18) Glucose (74-106) mg/dL POC Glucose 104 (70-105) mg/dL Calcium (8.5-10.1) mg/dL Magnesium (1.8-2.4) mg/dl Peter Results last 24 hrs: Microbiology 06/19/16 15:34 Aerobic Blood Culture - Preliminary Blood - Venous NO GROWTH AFTER 1 DAY Anaerobic Blood Culture - Preliminary NO GROWTH AFTER 1 DAY Med Orders - Current: Current Medications Acetaminophen (Tylenol) 650 mg RECTAL Q6H PRN PRN Reason: Fever Last Admin: 06/19/16 15:07 Dose: 650 mg Baclofen (Lioresal) 15 mg PO TID [facility] Last Admin: 06/21/16 08:10 Dose: 15 mg Dextrose/Water (Dextrose 50% In Water) 50 ml IVPUSH ASDIRECTED PRN PRN Reason: Hypoglycemia Enoxaparin Sodium (Lovenox) 40 mg SUBCUT DAILY [facility] Last Admin: 06/21/16 08:09 Dose: 40 mg Fluoxetine HCl (Prozac) 10 mg PO DAILY [facility] Last Admin: 06/21/16 08:10 Dose: 10 mg Hydralazine HCl (Apresoline) 20 mg IVPUSH Q8H PRN PRN Reason: Hypertension Vancomycin HCl 1 gm/ Sodium (Chloride) 250 mls @ 167 mls/hr IV Q12H [facility] Last Admin: 06/21/16 00:08 Dose: 167 mls/hr Sodium Chloride (Normal Saline) 500 mls @ 999 mls/min IV .BOLUS [facility] Last Admin: 06/18/16 16:45 Dose: 999 mls/min Piperacillin Sod/Tazobactam (Sod 4.5 gm/ Sodium Chloride) 100 mls @ 25 mls/hr IV Q8H [facility] Last Admin: 06/21/16 06:03 Dose: 25 mls/hr Potassium Chloride/Dextrose/Sod Cl (D5 1/2 Ns W/ 40 Meq/L Kcl) 1,000 mls @ 70 mls/hr IV ASDIRECTED [facility] Last Admin: 06/21/16 01:16 Dose: 70 mls/hr Magnesium Sulfate 2 gm/ Premix 50 mls @ 25 mls/hr IV ONETIME ONE Stop: 06/21/16 11:33 Last Admin: 06/21/16 10:02 Dose: 25 mls/hr Insulin Aspart (Novolog) 0 unit SUBCUT QIDACANDBED [facility] PRN Reason: Protocol Last Admin: 06/21/16 06:06 Dose: Not Given Levetiracetam (Keppra) 1,000 mg PO BID [facility] Last Admin: 06/21/16 08:10 Dose: 1,000 mg Lorazepam (Ativan) 1 mg IVPUSH Q4H PRN PRN Reason: Seizures Magnesium Oxide (Magnesium Oxide) 400 mg PO QPM [facility] Last Admin: 06/20/16 17:54 Dose: 400 mg Metoprolol Tartrate (Lopressor) 2.5 mg IVPUSH Q4H PRN PRN Reason: heart rate Last Admin: 06/18/16 01:39 Dose: 2.5 mg Senna/Docusate Sodium (Senna Plus) 2 tab PO BID [facility] Last Admin: 06/21/16 08:10 Dose: 2 tab Sodium Chloride (Saline Flush) 10 ml FLUSH ASDIRECTED PRN PRN Reason: Keep Vein Open Last Admin: 06/16/16 20:18 Dose: 10 ml Tizanidine HCl (Zanaflex) 1 mg PO TID [facility] Last Admin: 06/21/16 08:10 Dose: 1 mg Vancomycin HCl (Pharmacy To Dose - Vancomycin) 0 dose .XX ASDIRECTED PRN PRN Reason: RX DOSE Discontinued Medications Albuterol (Proventil Neb Soln) 0.63 mg NEB ONETIME ONE Stop: 06/19/16 17:53 Last Admin: 06/19/16 18:02 Dose: Not Given Albuterol (Proventil Neb Soln) 2.5 mg NEB ONETIME ONE Stop: 06/19/16 17:53 Last Admin: 06/19/16 18:01 Dose: Not Given Albuterol (Proventil Neb Soln) Confirm Administered Dose 2.5 mg .ROUTE .STK-MED ONE Stop: 06/19/16 17:54 Last Admin: 06/19/16 17:58 Dose: 2.5 mg Albuterol (Proventil Neb Soln) 0.63 mg NEB QIDRT KHAI Albuterol (Proventil Neb Soln) 2.5 mg NEB QIDRT [facility] Last Admin: 06/21/16 06:15 Dose: Not Given Baclofen (Lioresal) 30 mg PO TID [facility] Last Admin: 06/18/16 15:29 Dose: 30 mg Baclofen (Lioresal) 5 mg PO TID [facility] Last Admin: 06/19/16 07:59 Dose: 5 mg Baclofen (Lioresal) 10 mg PO TID [facility] Last Admin: 06/19/16 19:13 Dose: Not Given Baclofen (Lioresal) 5 mg PO ONETIME ONE Stop: 06/19/16 09:38 Last Admin: 06/19/16 10:20 Dose: 5 mg Baclofen (Lioresal) 5 mg PO TID KHAI Baclofen (Lioresal) 5 mg PO TID [facility] Last Admin: 06/20/16 08:08 Dose: 5 mg Baclofen (Lioresal) 5 mg PO BID@1700,2300 [facility] Stop: 06/19/16 23:01 Last Admin: 06/19/16 19:13 Dose: Not Given Baclofen (Lioresal) 5 mg PO BID@1700,2300 [facility] Stop: 06/19/16 23:01 Last Admin: 06/19/16 23:25 Dose: 5 mg Baclofen (Lioresal) 5 mg PO ONETIME ONE Stop: 06/19/16 17:17 Last Admin: 06/19/16 17:26 Dose: 5 mg Baclofen (Lioresal) 10 mg PO TID [facility] Last Admin: 06/20/16 14:32 Dose: 10 mg Bisacodyl (Dulcolax) 10 mg RECTAL ONETIME ONE Stop: 06/19/16 08:43 Last Admin: 06/19/16 09:03 Dose: 10 mg Diphtheria/Tetanus/Acell Pertussis (Boostrix) 0.5 ml IM .ONCE ONE Stop: 06/18/16 11:52 Last Admin: 06/18/16 12:24 Dose: Not Given Sodium Chloride (Normal Saline) 1,000 mls @ 999 mls/hr IV ONETIME ONE Stop: 06/16/16 20:50 Last Infusion: 06/16/16 22:13 Dose: Infused Ceftriaxone Sodium 1 gm/ (Sodium Chloride) 100 mls @ 200 mls/hr IV ONETIME ONE Stop: 06/16/16 22:03 Last Admin: 06/16/16 22:13 Dose: 200 mls/hr Sodium Chloride (Normal Saline) 1,000 mls @ 125 mls/hr IV ONETIME ONE Stop: 06/17/16 05:56 Last Admin: 06/16/16 22:13 Dose: 125 mls/hr Levofloxacin/Dextrose 750 mg/ (Premix) 150 mls @ 100 mls/hr IV Q24H [facility] Last Admin: 06/18/16 18:47 Dose: Not Given Potassium Chloride/Dextrose/Sod Cl (D5 1/2 Ns W/ 20 Meq/L Kcl) 1,000 mls @ 70 mls/hr IV ASDIRECTED [facility] Last Admin: 06/20/16 07:10 Dose: 70 mls/hr Levetiracetam 1,000 mg/ Sodium (Chloride) 110 mls @ 400 mls/hr IV ONETIME ONE Stop: 06/17/16 15:38 Last Admin: 06/17/16 16:07 Dose: 400 mls/hr Levetiracetam 1,000 mg/ Sodium (Chloride) 110 mls @ 400 mls/hr IV Q12H [facility] Last Admin: 06/18/16 12:26 Dose: Not Given Vancomycin HCl 1 gm/ Sodium (Chloride) 250 mls @ 250 mls/hr IV ONETIME ONE Stop: 06/18/16 00:03 Last Admin: 06/17/16 23:18 Dose: 250 mls/hr Magnesium Sulfate 2 gm/ Premix 50 mls @ 25 mls/hr IV ONETIME ONE Stop: 06/18/16 13:06 Last Admin: 06/18/16 12:30 Dose: 25 mls/hr Piperacillin Sod/Tazobactam (Sod 4.5 gm/ Sodium Chloride) 100 mls @ 200 mls/hr IV ONETIME ONE Stop: 06/19/16 13:29 Last Admin: 06/19/16 13:47 Dose: 200 mls/hr Magnesium Sulfate 2 gm/ Premix 50 mls @ 25 mls/hr IV ONETIME ONE Stop: 06/19/16 19:32 Last Admin: 06/19/16 18:08 Dose: 25 mls/hr Potassium Chloride 20 meq/Potassium Chloride/Dextrose/Sod Cl 1,010 mls @ 70 mls /hr IV ASDIRECTED [facility] Potassium Chloride/Dextrose/Sod Cl (D5 1/2 Ns W/ 40 Meq/L Kcl) 1,000 mls @ 69.307 mls/hr IV ASDIRECTED [facility] Last Admin: 06/20/16 11:06 Dose: 69.307 mls/hr Levetiracetam (Keppra) 1,000 mg PO BID [facility] Last Admin: 06/17/16 20:27 Dose: Not Given Lorazepam (Ativan) 1 mg IVPUSH ONETIME ONE Stop: 06/17/16 15:31 Last Admin: 06/17/16 16:03 Dose: 1 mg Metoprolol Tartrate (Lopressor) 2.5 mg IVPUSH Q6H PRN PRN Reason: heart rate Last Admin: 06/17/16 21:28 Dose: 2.5 mg Potassium Chloride (Potassium Chloride) 40 meq PO ONETIME ONE Stop: 06/18/16 11:08 Last Admin: 06/18/16 12:33 Dose: 40 meq Tizanidine HCl (Zanaflex) 2 mg PO TID [facility] Last Admin: 06/19/16 19:13 Dose: Not Given Tizanidine HCl (Zanaflex) 2 mg PO ONETIME STA Stop: 06/19/16 09:38 Last Admin: 06/19/16 10:20 Dose: 2 mg Tizanidine HCl (Zanaflex) 1 mg PO BID@1700,2300 [facility] Stop: 06/19/16 23:01 Last Admin: 06/19/16 23:24 Dose: 1 mg - Exam Quality Assessment: DVT prophylaxis General: alert, oriented, cooperative HEENT: Pupils equal, Pupils reactive Neck: supple, trachea midline Lungs: Normal respiratory effort Cardiovascular: Regular Rate Abdomen: bowel sounds present, soft, no tenderness, no distension (Female) Exam: Deferred Back Exam: normal inspection Extremities: normal pulses Skin: warm Neurological: no new focal deficit, normal speech (at her baseline) Psy/Mental Status: alert, normal affect, normal mood - Problem List & Annotations (1) UTI (urinary tract infection) SNOMED Code(s): 90700164 Code(s): N39.0 - URINARY TRACT INFECTION, SITE NOT SPECIFIED Status: Acute Current Visit: Yes (2) Multiple sclerosis SNOMED Code(s): 20437275 Code(s): G35 - MULTIPLE SCLEROSIS Status: Acute Current Visit: No - Problem List Review Problem List Initiated/Reviewed/Updated: Yes - My Orders Last 24 Hours: My Active Orders 06/20/16 17:53 Baclofen [Lioresal] 15 mg PO TID 06/21/16 01:15 D5 1/2 NS w/ 40 mEq/L KCl 1,000 ml IV ASDIRECTED 06/21/16 09:34 Magnesium Sulfate/Water [Magnesium Sulfate 2 GM in Water 50 ML] 2 gm Premix Bag 1 bag IV ONETIME 06/21/16 09:42 Transfer Patient (Change bed) [ADT] Routine 06/22/16 05:00 BMP [BASIC METABOLIC PANEL,BMP] [CHEM] DAILY CBC WITH AUTO DIFF [HEME] DAILY MAGNESIUM [CHEM] DAILY 06/23/16 05:00 BMP [BASIC METABOLIC PANEL,BMP] [CHEM] DAILY CBC WITH AUTO DIFF [HEME] DAILY MAGNESIUM [CHEM] DAILY - Plan Plan:: Impression: Patient has agreed to PEG tube AUTI, on 2 IV ATBs, will stop today AMS, resolved Risk of aspiration; pulmonary toilet Puree diet as ordered; patient is not drinking enough fluids; Drowsiness after Zanaflex and Baclofen yesterday, with increase spasms off usual regimen. Family meeting, impromptu regarding PEG tube, patient is the decision maker. Plan: Gen Surg consult re: PEG tube ICU IV ATBs Adjust meds to avoid over sedation. Await Keppra level Hydrate as needed, have reduced rate for now. BP/HR control, address cause of elevation DVT/GI prophylaxis Consult PT/OT/SW LOS>96 hours expected with slow response to therapy.
[2016-06-21] MEDS: LORazepam 2 MG/ML MDV IVPUSH PRN (15:31)
[2016-06-21] MEDS: Magnesium Oxide 400 MG Tab PO SCH (17:06)
--- NOTE | 2016-06-21 18:00 | PCM.CONSN ---
<Adriane Nicholas - Last Filed: 06/22/16 06:47> - General Info Date of Service: 06/21/16 Admission Dx/Problem (Free Text): Admission Diagnosis/Problem Admission Diagnosis/Problem Urinary tract infection Subjective Update: 55 year old female with MS, current hospitalization for UTI. Consulted for PEG tube placement by hospitalist, Dr. Winston. Patient does have dysphagia and is unable to meet her hydration needs. She is on a pureed diet, pudding thick liquids. Patient did have a family meeting regarding PEG tube placement for hydration. She was agreeable to placement. Patient is her own guardian. She did have what appeared to be seizure like activity 06/17/16. CT head was unremarkable. She was given Keppra and Ativan and seizure like activity stopped. Face sheet from [facility] reviewed. PMH listed: MS, dementia, Anxiety, Depression, Sepsis due to Ecoli, Osteoporosis, TIA without residual effects, Hx of UTIs, CKD , Eosinophilia, Contractures, Pain, MG disturbance, Insomnia, encephalopathy, Chronic embolism and thrombus of vein unspecified, constipation, hypercalcemia, DM2, Anemia, convulsions, dysphagia. She currently is receiving vancomycin and Zosyn for UTI. - Review of Systems General: Reports: No Symptoms HEENT: Reports: no symptoms Pulmonary: Reports: no symptoms Cardiovascular: Reports: No Symptoms Gastrointestinal: Reports: No symptoms Genitourinary: Reports: incontinence Musculoskeletal: Reports: other (contractures) Skin: Reports: no symptoms Neurological: Reports: Trouble Speaking (due to MS ), Other - Patient Data Vitals - most recent: Last Vital Signs Temp 37.3 C 06/21/16 16:12 Pulse 93 06/21/16 16:12 Resp 20 06/21/16 16:12 BP 119/67 06/21/16 16:12 Pulse Ox 96 06/21/16 16:12 Weight - most recent: 162 lb 0.001 oz I&O - last 24 hours: Intake & Output 06/21/16 06/21/16 06/21/16 06:59 14:59 22:59 Intake Total 1482 0 260 Balance 1482 0 260 Lab Results last 24 hrs: Laboratory Results - last 24 hr 06/17/16 06/20/16 06/21/16 Range/Units 06:26 20:50 06:05 WBC 9.37 (3.98-10.04) K/mm3 RBC 3.82 L (3.98-5.22) M/mm3 Hgb 10.9 L (11.2-15.7) gm/L Hct 32.7 L (34.1-44.9) % MCV 85.6 (79.4-94.8) fl MCH 28.5 (25.6-32.2) pg MCHC 33.3 (32.2-35.5) g/dl RDW Std Deviation 50.8 H (36.4-46.3) fL Plt Count 308 (182-369) K/mm3 MPV 9.8 (9.4-12.3) fl Neut % (Auto) 55.6 (34.0-71.1) % Lymph % (Auto) 31.4 (19.3-51.7) % [place] % (Auto) 9.4 (4.7-12.5) % Eos % (Auto) 1.9 (0.7-5.8) Baso % (Auto) 1.3 H (0.1-1.2) % Neut # (Auto) 5.21 (1.56-6.13) K/mm3 Lymph # (Auto) 2.94 (1.18-3.74) K/mm3 [place] # (Auto) 0.88 H (0.24-0.36) K/mm3 Eos # (Auto) 0.18 (0.04-0.36) K/mm3 Baso # (Auto) 0.12 H (0.01-0.08) K/mm3 Manual Slide Review Normal smear Sodium (136-145) mEq/L Potassium (3.5-5.1) mEq/L Chloride (98-107) mEq/L Carbon Dioxide (21-32) mEq/L Anion Gap (5-15) BUN (7-18) mg/dL Creatinine (0.55-1.02) mg/dL Est Cr Clr Drug Dosing mL/min Estimated GFR (MDRD) (>60) mL/min BUN/Creatinine Ratio (14-18) Glucose (74-106) mg/dL POC Glucose 128 H (70-105) mg/dL Calcium (8.5-10.1) mg/dL Magnesium (1.8-2.4) mg/dl Levetiracetam 17 (5-30) ug/mL 06/21/16 06/21/16 06/21/16 Range/Units 06:05 06:06 11:44 WBC (3.98-10.04) K/mm3 RBC (3.98-5.22) M/mm3 Hgb (11.2-15.7) gm/L Hct (34.1-44.9) % MCV (79.4-94.8) fl MCH (25.6-32.2) pg MCHC (32.2-35.5) g/dl RDW Std Deviation (36.4-46.3) fL Plt Count (182-369) K/mm3 MPV (9.4-12.3) fl Neut % (Auto) (34.0-71.1) % Lymph % (Auto) (19.3-51.7) % [place] % (Auto) (4.7-12.5) % Eos % (Auto) (0.7-5.8) Baso % (Auto) (0.1-1.2) % Neut # (Auto) (1.56-6.13) K/mm3 Lymph # (Auto) (1.18-3.74) K/mm3 [place] # (Auto) (0.24-0.36) K/mm3 Eos # (Auto) (0.04-0.36) K/mm3 Baso # (Auto) (0.01-0.08) K/mm3 Manual Slide Review Sodium 138 (136-145) mEq/L Potassium 4.1 (3.5-5.1) mEq/L Chloride 103 (98-107) mEq/L Carbon Dioxide 24 (21-32) mEq/L Anion Gap 15.1 H (5-15) BUN 3 L (7-18) mg/dL Creatinine 0.8 (0.55-1.02) mg/dL Est Cr Clr Drug Dosing 76.13 mL/min Estimated GFR (MDRD) > 60 (>60) mL/min BUN/Creatinine Ratio 3.8 L (14-18) Glucose 103 (74-106) mg/dL POC Glucose 104 101 (70-105) mg/dL Calcium 8.9 (8.5-10.1) mg/dL Magnesium 1.5 L (1.8-2.4) mg/dl Levetiracetam (5-30) ug/mL 06/21/16 Range/Units 16:18 WBC (3.98-10.04) K/mm3 RBC (3.98-5.22) M/mm3 Hgb (11.2-15.7) gm/L Hct (34.1-44.9) % MCV (79.4-94.8) fl MCH (25.6-32.2) pg MCHC (32.2-35.5) g/dl RDW Std Deviation (36.4-46.3) fL Plt Count (182-369) K/mm3 MPV (9.4-12.3) fl Neut % (Auto) (34.0-71.1) % Lymph % (Auto) (19.3-51.7) % [place] % (Auto) (4.7-12.5) % Eos % (Auto) (0.7-5.8) Baso % (Auto) (0.1-1.2) % Neut # (Auto) (1.56-6.13) K/mm3 Lymph # (Auto) (1.18-3.74) K/mm3 [place] # (Auto) (0.24-0.36) K/mm3 Eos # (Auto) (0.04-0.36) K/mm3 Baso # (Auto) (0.01-0.08) K/mm3 Manual Slide Review Sodium (136-145) mEq/L Potassium (3.5-5.1) mEq/L Chloride (98-107) mEq/L Carbon Dioxide (21-32) mEq/L Anion Gap (5-15) BUN (7-18) mg/dL Creatinine (0.55-1.02) mg/dL Est Cr Clr Drug Dosing mL/min Estimated GFR (MDRD) (>60) mL/min BUN/Creatinine Ratio (14-18) Glucose (74-106) mg/dL POC Glucose 106 H (70-105) mg/dL Calcium (8.5-10.1) mg/dL Magnesium (1.8-2.4) mg/dl Levetiracetam (5-30) ug/mL Peter Results last 24 hrs: Microbiology 06/19/16 15:34 Aerobic Blood Culture - Preliminary Blood - Venous NO GROWTH AFTER 2 DAYS Anaerobic Blood Culture - Preliminary NO GROWTH AFTER 2 DAYS Med Orders - Current: Current Medications Acetaminophen (Tylenol) 650 mg RECTAL Q6H PRN PRN Reason: Fever Last Admin: 06/19/16 15:07 Dose: 650 mg Baclofen (Lioresal) 15 mg PO TID [facility] Last Admin: 06/21/16 15:29 Dose: 15 mg Dextrose/Water (Dextrose 50% In Water) 50 ml IVPUSH ASDIRECTED PRN PRN Reason: Hypoglycemia Enoxaparin Sodium (Lovenox) 40 mg SUBCUT DAILY [facility] Last Admin: 06/21/16 08:09 Dose: 40 mg Fluoxetine HCl (Prozac) 10 mg PO DAILY [facility] Last Admin: 06/21/16 08:10 Dose: 10 mg Hydralazine HCl (Apresoline) 20 mg IVPUSH Q8H PRN PRN Reason: Hypertension Vancomycin HCl 1 gm/ Sodium (Chloride) 250 mls @ 167 mls/hr IV Q12H [facility] Last Admin: 06/21/16 15:26 Dose: 167 mls/hr Sodium Chloride (Normal Saline) 500 mls @ 999 mls/min IV .BOLUS [facility] Last Admin: 06/18/16 16:45 Dose: 999 mls/min Piperacillin Sod/Tazobactam (Sod 4.5 gm/ Sodium Chloride) 100 mls @ 25 mls/hr IV Q8H [facility] Last Admin: 06/21/16 17:04 Dose: 25 mls/hr Potassium Chloride/Dextrose/Sod Cl (D5 1/2 Ns W/ 40 Meq/L Kcl) 1,000 mls @ 70 mls/hr IV ASDIRECTED [facility] Last Admin: 06/21/16 15:33 Dose: 70 mls/hr Insulin Aspart (Novolog) 0 unit SUBCUT QIDACANDBED [facility] PRN Reason: Protocol Last Admin: 06/21/16 17:03 Dose: Not Given Levetiracetam (Keppra) 1,000 mg PO BID [facility] Last Admin: 06/21/16 08:10 Dose: 1,000 mg Lorazepam (Ativan) 1 mg IVPUSH Q4H PRN PRN Reason: Seizures Last Admin: 06/21/16 15:31 Dose: 1 mg Magnesium Oxide (Magnesium Oxide) 400 mg PO QPM [facility] Last Admin: 03/29/17 17:06 Dose: 400 mg Metoprolol Tartrate (Lopressor) 2.5 mg IVPUSH Q4H PRN PRN Reason: heart rate Last Admin: 06/18/16 01:39 Dose: 2.5 mg Senna/Docusate Sodium (Senna Plus) 2 tab PO BID [facility] Last Admin: 06/21/16 08:10 Dose: 2 tab Sodium Chloride (Saline Flush) 10 ml FLUSH ASDIRECTED PRN PRN Reason: Keep Vein Open Last Admin: 06/16/16 20:18 Dose: 10 ml Tizanidine HCl (Zanaflex) 1 mg PO TID [facility] Last Admin: 06/21/16 15:29 Dose: 1 mg Vancomycin HCl (Pharmacy To Dose - Vancomycin) 0 dose .XX ASDIRECTED PRN PRN Reason: RX DOSE Discontinued Medications Albuterol (Proventil Neb Soln) 0.63 mg NEB ONETIME ONE Stop: 06/19/16 17:53 Last Admin: 06/19/16 18:02 Dose: Not Given Albuterol (Proventil Neb Soln) 2.5 mg NEB ONETIME ONE Stop: 06/19/16 17:53 Last Admin: 06/19/16 18:01 Dose: Not Given Albuterol (Proventil Neb Soln) Confirm Administered Dose 2.5 mg .ROUTE .STK-MED ONE Stop: 06/19/16 17:54 Last Admin: 06/19/16 17:58 Dose: 2.5 mg Albuterol (Proventil Neb Soln) 0.63 mg NEB QIDRT [facility] Albuterol (Proventil Neb Soln) 2.5 mg NEB QIDRT [facility] Last Admin: 06/21/16 06:15 Dose: Not Given Baclofen (Lioresal) 30 mg PO TID [facility] Last Admin: 06/18/16 15:29 Dose: 30 mg Baclofen (Lioresal) 5 mg PO TID [facility] Last Admin: 06/19/16 07:59 Dose: 5 mg Baclofen (Lioresal) 10 mg PO TID [facility] Last Admin: 06/19/16 19:13 Dose: Not Given Baclofen (Lioresal) 5 mg PO ONETIME ONE Stop: 06/19/16 09:38 Last Admin: 06/19/16 10:20 Dose: 5 mg Baclofen (Lioresal) 5 mg PO TID [facility] Baclofen (Lioresal) 5 mg PO TID [facility] Last Admin: 06/20/16 08:08 Dose: 5 mg Baclofen (Lioresal) 5 mg PO BID@1700,2300 [facility] Stop: 06/19/16 23:01 Last Admin: 06/19/16 19:13 Dose: Not Given Baclofen (Lioresal) 5 mg PO BID@1700,2300 [facility] Stop: 06/19/16 23:01 Last Admin: 06/19/16 23:25 Dose: 5 mg Baclofen (Lioresal) 5 mg PO ONETIME ONE Stop: 06/19/16 17:17 Last Admin: 06/19/16 17:26 Dose: 5 mg Baclofen (Lioresal) 10 mg PO TID [facility] Last Admin: 06/20/16 14:32 Dose: 10 mg Bisacodyl (Dulcolax) 10 mg RECTAL ONETIME ONE Stop: 06/19/16 08:43 Last Admin: 06/19/16 09:03 Dose: 10 mg Diphtheria/Tetanus/Acell Pertussis (Boostrix) 0.5 ml IM .ONCE ONE Stop: 06/18/16 11:52 Last Admin: 06/18/16 12:24 Dose: Not Given Sodium Chloride (Normal Saline) 1,000 mls @ 999 mls/hr IV ONETIME ONE Stop: 06/16/16 20:50 Last Infusion: 06/16/16 22:13 Dose: Infused Ceftriaxone Sodium 1 gm/ (Sodium Chloride) 100 mls @ 200 mls/hr IV ONETIME ONE Stop: 06/16/16 22:03 Last Admin: 06/16/16 22:13 Dose: 200 mls/hr Sodium Chloride (Normal Saline) 1,000 mls @ 125 mls/hr IV ONETIME ONE Stop: 06/17/16 05:56 Last Admin: 06/16/16 22:13 Dose: 125 mls/hr Levofloxacin/Dextrose 750 mg/ (Premix) 150 mls @ 100 mls/hr IV Q24H [facility] Last Admin: 06/18/16 18:47 Dose: Not Given Potassium Chloride/Dextrose/Sod Cl (D5 1/2 Ns W/ 20 Meq/L Kcl) 1,000 mls @ 70 mls/hr IV ASDIRECTED [facility] Last Admin: 03/28/17 07:10 Dose: 70 mls/hr Levetiracetam 1,000 mg/ Sodium (Chloride) 110 mls @ 400 mls/hr IV ONETIME ONE Stop: 06/17/16 15:38 Last Admin: 06/17/16 16:07 Dose: 400 mls/hr Levetiracetam 1,000 mg/ Sodium (Chloride) 110 mls @ 400 mls/hr IV Q12H [facility] Last Admin: 06/18/16 12:26 Dose: Not Given Vancomycin HCl 1 gm/ Sodium (Chloride) 250 mls @ 250 mls/hr IV ONETIME ONE Stop: 06/18/16 00:03 Last Admin: 06/17/16 23:18 Dose: 250 mls/hr Magnesium Sulfate 2 gm/ Premix 50 mls @ 25 mls/hr IV ONETIME ONE Stop: 06/18/16 13:06 Last Admin: 06/18/16 12:30 Dose: 25 mls/hr Piperacillin Sod/Tazobactam (Sod 4.5 gm/ Sodium Chloride) 100 mls @ 200 mls/hr IV ONETIME ONE Stop: 06/19/16 13:29 Last Admin: 06/19/16 13:47 Dose: 200 mls/hr Magnesium Sulfate 2 gm/ Premix 50 mls @ 25 mls/hr IV ONETIME ONE Stop: 06/19/16 19:32 Last Admin: 06/19/16 18:08 Dose: 25 mls/hr Potassium Chloride 20 meq/Potassium Chloride/Dextrose/Sod Cl 1,010 mls @ 70 mls /hr IV ASDIRECTED [facility] Potassium Chloride/Dextrose/Sod Cl (D5 1/2 Ns W/ 40 Meq/L Kcl) 1,000 mls @ 69.307 mls/hr IV ASDIRECTED [facility] Last Admin: 06/20/16 11:06 Dose: 69.307 mls/hr Magnesium Sulfate 2 gm/ Premix 50 mls @ 25 mls/hr IV ONETIME ONE Stop: 06/21/16 11:33 Last Admin: 06/21/16 10:02 Dose: 25 mls/hr Levetiracetam (Keppra) 1,000 mg PO BID [facility] Last Admin: 06/17/16 20:27 Dose: Not Given Lorazepam (Ativan) 1 mg IVPUSH ONETIME ONE Stop: 06/17/16 15:31 Last Admin: 06/17/16 16:03 Dose: 1 mg Metoprolol Tartrate (Lopressor) 2.5 mg IVPUSH Q6H PRN PRN Reason: heart rate Last Admin: 06/17/16 21:28 Dose: 2.5 mg Potassium Chloride (Potassium Chloride) 40 meq PO ONETIME ONE Stop: 06/18/16 11:08 Last Admin: 06/18/16 12:33 Dose: 40 meq Tizanidine HCl (Zanaflex) 2 mg PO TID [facility] Last Admin: 06/19/16 19:13 Dose: Not Given Tizanidine HCl (Zanaflex) 2 mg PO ONETIME STA Stop: 06/19/16 09:38 Last Admin: 06/19/16 10:20 Dose: 2 mg Tizanidine HCl (Zanaflex) 1 mg PO BID@1700,2300 [facility] Stop: 06/19/16 23:01 Last Admin: 06/19/16 23:24 Dose: 1 mg - Exam General: alert, cooperative, no acute distress HEENT: Mucous membr. moist/pink. No: Scleral icterus Lungs: Clear to auscultation, Normal respiratory effort Cardiovascular: Regular Rate, Regular Rhythm, No Murmurs Abdomen: soft, no tenderness, no distension Back Exam: normal inspection Extremities: no edema, no tenderness/swelling, no clubbing, other (contractures) Skin: warm, dry, intact (pallor) Neurological: no new focal deficit, other (Nods, and says yes and no appropriately in conversation) Psy/Mental Status: alert Consult PN Assessment/Plan Procedures: Procedures ASSAY OF BLOOD OSMOLALITY (08/05/14) ASSAY OF CK (CPK) (04/06/14) ASSAY OF LACTIC ACID (07/21/15) ASSAY OF MAGNESIUM (08/05/14) ASSAY OF NATRIURETIC PEPTIDE (03/12/14) ASSAY OF PHOSPHORUS (08/05/14) ASSAY OF TROPONIN QUANT (08/05/14) BLOOD CULTURE FOR BACTERIA (07/21/15) BLOOD GASES ANY COMBINATION (04/06/14) C-REACTIVE PROTEIN (07/21/15) CHEST X-RAY 1 VIEW FRONTAL (07/21/15) COMPLETE CBC W/AUTO DIFF WBC (07/21/15) COMPREHEN METABOLIC PANEL (07/21/15) CREATINE MB FRACTION (08/05/14) CT ANGIOGRAPHY CHEST (03/12/14) CT HEAD/BRAIN W/O DYE (04/06/14) CULTURE AEROBIC IDENTIFY (06/30/14) VIN SUBQ TISSUE 20 SQ CM/< (03/06/14) ELECTROCARDIOGRAM TRACING (04/06/14) EMERGENCY DEPT VISIT (07/21/15) EMERGENCY DEPT VISIT (08/05/14) EMERGENCY DEPT VISIT (06/30/14) EMERGENCY DEPT VISIT (03/12/14) FIBRIN DEGRADATION QUANT (03/12/14) HYDRATE IV INFUSION ADD-ON (07/21/15) HYDRATION IV INFUSION INIT (03/12/14) INFLUENZA A/B AG IA (03/12/14) INFLUENZA ASSAY W/OPTIC (06/30/14) INSERT BLADDER CATHETER (03/12/14) INSERT TEMP BLADDER CATH (06/30/14) METABOLIC PANEL TOTAL CA (06/30/14) MICROBE SUSCEPTIBLE DIFFUSE (07/21/15) MICROBE SUSCEPTIBLE DISK (07/21/15) MICROBE SUSCEPTIBLE PETER (07/21/15) MR-STAPH DNA AMP PROBE (03/06/14) OT EVALUATION (07/21/15) PROTHROMBIN TIME (03/12/14) PT EVALUATION (07/21/15) RBC SED RATE AUTOMATED (08/05/14) ROUTINE VENIPUNCTURE (07/21/15) THER/DIAG CONCURRENT INF (04/06/14) THER/PROPH/DIAG IV INF ADDON (07/21/15) THER/PROPH/DIAG IV INF INIT (07/21/15) TX/PRO/DX INJ NEW DRUG ADDON (06/30/14) URINALYSIS AUTO W/SCOPE (07/21/15) URINE BACTERIA CULTURE (07/21/15) URINE CULTURE/COLONY COUNT (09/08/15) WITHDRAWAL OF ARTERIAL BLOOD (04/06/14) X-RAY EXAM OF ABDOMEN (07/21/15) (1) Multiple sclerosis SNOMED Code(s): 40856422 Code(s): G35 - MULTIPLE SCLEROSIS Current Visit: Yes Problem List Initiated/Reviewed/Updated: Yes My Orders last 24 hours: My Active Orders 06/21/16 Dinner NPO After Midnight [Nothing per Oral After Midnight Diet] [DIET] Plan: Assessment: MS, Dysphagia, inability to meet oral hydration needs, need for PEG tube placement. Plan: Dr. Chambers did discuss PEG tube placement with patient. Patient was agreeable to placement. Will plan to place PEG at 0730 on 06/22/16. Patient should be NPO at [facility]. Hold Lovenox 24 hours prior to placement and 24 hours after placement. This patient was evaluated with Dr. Chambers, plan formulated above. Adriane Nicholas, CLINICAL MANAGER-C scribing for Dr. Negrita Chambers. General Surgery <Negrita Chambers - Last Filed: 06/23/16 14:05> - Patient Data Vitals - most recent: Last Vital Signs Temp 97.0 F 06/23/16 12:06 Pulse 84 06/23/16 12:06 Resp 19 06/23/16 12:06 BP 122/86 06/23/16 12:06 Pulse Ox 96 06/23/16 12:06 I&O - last 24 hours: Intake & Output 06/22/16 06/23/16 06/23/16 22:59 06:59 14:59 Intake Total 1494 550 0 Output Total 300 Balance 1194 550 0 Lab Results last 24 hrs: Laboratory Results - last 24 hr 06/22/16 06/22/16 06/23/16 Range/Units 16:30 21:25 06:06 WBC 8.65 (3.98-10.04) K/mm3 RBC 4.08 (3.98-5.22) M/mm3 Hgb 11.4 (11.2-15.7) gm/L Hct 35.4 (34.1-44.9) % MCV 86.8 (79.4-94.8) fl MCH 27.9 (25.6-32.2) pg MCHC 32.2 (32.2-35.5) g/dl RDW Std Deviation 52.6 H (36.4-46.3) fL Plt Count 431 H (182-369) K/mm3 MPV 8.9 L (9.4-12.3) fl Neut % (Auto) 61.2 (34.0-71.1) % Lymph % (Auto) 25.9 (19.3-51.7) % [place] % (Auto) 10.2 (4.7-12.5) % Eos % (Auto) 2.0 (0.7-5.8) Baso % (Auto) 0.2 (0.1-1.2) % Neut # (Auto) 5.30 (1.56-6.13) K/mm3 Lymph # (Auto) 2.24 (1.18-3.74) K/mm3 [place] # (Auto) 0.88 H (0.24-0.36) K/mm3 Eos # (Auto) 0.17 (0.04-0.36) K/mm3 Baso # (Auto) 0.02 (0.01-0.08) K/mm3 Manual Slide Review Normal smear Sodium (136-145) mEq/L Potassium (3.5-5.1) mEq/L Chloride (98-107) mEq/L Carbon Dioxide (21-32) mEq/L Anion Gap (5-15) BUN (7-18) mg/dL Creatinine (0.55-1.02) mg/dL Est Cr Clr Drug Dosing mL/min Estimated GFR (MDRD) (>60) mL/min BUN/Creatinine Ratio (14-18) Glucose (74-106) mg/dL POC Glucose 89 99 (70-105) mg/dL Calcium (8.5-10.1) mg/dL Magnesium (1.8-2.4) mg/dl 06/23/16 06/23/16 06/23/16 Range/Units 06:06 06:09 11:28 WBC (3.98-10.04) K/mm3 RBC (3.98-5.22) M/mm3 Hgb (11.2-15.7) gm/L Hct (34.1-44.9) % MCV (79.4-94.8) fl MCH (25.6-32.2) pg MCHC (32.2-35.5) g/dl RDW Std Deviation (36.4-46.3) fL Plt Count (182-369) K/mm3 MPV (9.4-12.3) fl Neut % (Auto) (34.0-71.1) % Lymph % (Auto) (19.3-51.7) % [place] % (Auto) (4.7-12.5) % Eos % (Auto) (0.7-5.8) Baso % (Auto) (0.1-1.2) % Neut # (Auto) (1.56-6.13) K/mm3 Lymph # (Auto) (1.18-3.74) K/mm3 [place] # (Auto) (0.24-0.36) K/mm3 Eos # (Auto) (0.04-0.36) K/mm3 Baso # (Auto) (0.01-0.08) K/mm3 Manual Slide Review Sodium 138 (136-145) mEq/L Potassium 3.8 (3.5-5.1) mEq/L Chloride 102 (98-107) mEq/L Carbon Dioxide 28 (21-32) mEq/L Anion Gap 11.8 (5-15) BUN 3 L (7-18) mg/dL Creatinine 0.9 (0.55-1.02) mg/dL Est Cr Clr Drug Dosing 68.04 mL/min Estimated GFR (MDRD) > 60 (>60) mL/min BUN/Creatinine Ratio 3.3 L (14-18) Glucose 105 (74-106) mg/dL POC Glucose 93 104 (70-105) mg/dL Calcium 9.7 (8.5-10.1) mg/dL Magnesium 1.8 (1.8-2.4) mg/dl Peter Results last 24 hrs: Microbiology 06/19/16 15:34 Aerobic Blood Culture - Preliminary Blood - Venous NO GROWTH AFTER 3 DAYS Anaerobic Blood Culture - Preliminary NO GROWTH AFTER 3 DAYS Med Orders - Current: Current Medications Acetaminophen (Tylenol) 650 mg RECTAL Q6H PRN PRN Reason: Fever Last Admin: 06/19/16 15:07 Dose: 650 mg Baclofen (Lioresal) 15 mg PO TID [facility] Last Admin: 06/23/16 09:16 Dose: 15 mg Dextrose/Water (Dextrose 50% In Water) 50 ml IVPUSH ASDIRECTED PRN PRN Reason: Hypoglycemia Enoxaparin Sodium (Lovenox) 40 mg SUBCUT DAILY [facility] Last Admin: 06/23/16 09:21 Dose: 40 mg Fluoxetine HCl (Prozac) 10 mg PO DAILY [facility] Last Admin: 06/23/16 09:17 Dose: 10 mg Hydralazine HCl (Apresoline) 20 mg IVPUSH Q8H PRN PRN Reason: Hypertension Vancomycin HCl 1 gm/ Sodium (Chloride) 250 mls @ 167 mls/hr IV Q12H [facility] Last Admin: 06/23/16 11:47 Dose: 167 mls/hr Sodium Chloride (Normal Saline) 500 mls @ 999 mls/min IV .BOLUS [facility] Last Admin: 06/18/16 16:45 Dose: 999 mls/min Piperacillin Sod/Tazobactam (Sod 4.5 gm/ Sodium Chloride) 100 mls @ 25 mls/hr IV Q8H [facility] Last Admin: 06/23/16 13:38 Dose: Not Given Potassium Chloride/Dextrose/Sod Cl (D5 1/2 Ns W/ 40 Meq/L Kcl) 1,000 mls @ 70 mls/hr IV ASDIRECTED [facility] Last Admin: 06/23/16 04:10 Dose: 70 mls/hr Insulin Aspart (Novolog) 0 unit SUBCUT QIDACANDBED [facility] PRN Reason: Protocol Last Admin: 06/23/16 11:48 Dose: Not Given Levetiracetam (Keppra) 1,000 mg PO BID [facility] Last Admin: 06/23/16 09:16 Dose: 1,000 mg Lorazepam (Ativan) 1 mg IVPUSH Q4H PRN PRN Reason: Seizures Last Admin: 06/22/16 03:34 Dose: 1 mg Magnesium Oxide (Magnesium Oxide) 400 mg PO QPM [facility] Last Admin: 06/22/16 18:03 Dose: 400 mg Metoprolol Tartrate (Lopressor) 2.5 mg IVPUSH Q4H PRN PRN Reason: heart rate Last Admin: 06/18/16 01:39 Dose: 2.5 mg Senna/Docusate Sodium (Senna Plus) 2 tab PO BID [facility] Last Admin: 06/23/16 09:16 Dose: 2 tab Sodium Chloride (Saline Flush) 10 ml FLUSH ASDIRECTED PRN PRN Reason: Keep Vein Open Last Admin: 06/16/16 20:18 Dose: 10 ml Tizanidine HCl (Zanaflex) 1 mg PO TID [facility] Last Admin: 06/23/16 09:17 Dose: 1 mg Vancomycin HCl (Pharmacy To Dose - Vancomycin) 0 dose .XX ASDIRECTED PRN PRN Reason: RX DOSE Discontinued Medications Albuterol (Proventil Neb Soln) 0.63 mg NEB ONETIME ONE Stop: 06/19/16 17:53 Last Admin: 06/19/16 18:02 Dose: Not Given Albuterol (Proventil Neb Soln) 2.5 mg NEB ONETIME ONE Stop: 06/19/16 17:53 Last Admin: 06/19/16 18:01 Dose: Not Given Albuterol (Proventil Neb Soln) Confirm Administered Dose 2.5 mg .ROUTE .STK-MED ONE Stop: 06/19/16 17:54 Last Admin: 06/19/16 17:58 Dose: 2.5 mg Albuterol (Proventil Neb Soln) 0.63 mg NEB QIDRT [facility]I Albuterol (Proventil Neb Soln) 2.5 mg NEB QIDRT [facility] Last Admin: 06/21/16 06:15 Dose: Not Given Baclofen (Lioresal) 30 mg PO TID [facility] Last Admin: 06/18/16 15:29 Dose: 30 mg Baclofen (Lioresal) 5 mg PO TID [facility] Last Admin: 06/19/16 07:59 Dose: 5 mg Baclofen (Lioresal) 10 mg PO TID [facility] Last Admin: 06/19/16 19:13 Dose: Not Given Baclofen (Lioresal) 5 mg PO ONETIME ONE Stop: 06/19/16 09:38 Last Admin: 06/19/16 10:20 Dose: 5 mg Baclofen (Lioresal) 5 mg PO TID [facility]I Baclofen (Lioresal) 5 mg PO TID [facility] Last Admin: 06/20/16 08:08 Dose: 5 mg Baclofen (Lioresal) 5 mg PO BID@1700,2300 [facility] Stop: 06/19/16 23:01 Last Admin: 06/19/16 19:13 Dose: Not Given Baclofen (Lioresal) 5 mg PO BID@1700,2300 [facility] Stop: 06/19/16 23:01 Last Admin: 06/19/16 23:25 Dose: 5 mg Baclofen (Lioresal) 5 mg PO ONETIME ONE Stop: 06/19/16 17:17 Last Admin: 06/19/16 17:26 Dose: 5 mg Baclofen (Lioresal) 10 mg PO TID [facility] Last Admin: 06/20/16 14:32 Dose: 10 mg Bisacodyl (Dulcolax) 10 mg RECTAL ONETIME ONE Stop: 06/19/16 08:43 Last Admin: 06/19/16 09:03 Dose: 10 mg Diphtheria/Tetanus/Acell Pertussis (Boostrix) 0.5 ml IM .ONCE ONE Stop: 06/18/16 11:52 Last Admin: 06/18/16 12:24 Dose: Not Given Enoxaparin Sodium (Lovenox) 40 mg SUBCUT DAILY [facility] Last Admin: 06/21/16 08:09 Dose: 40 mg Fentanyl (Sublimaze) Confirm Administered Dose 100 mcg .ROUTE .STK-MED ONE Stop: 06/22/16 07:14 Sodium Chloride (Normal Saline) 1,000 mls @ 999 mls/hr IV ONETIME ONE Stop: 06/16/16 20:50 Last Infusion: 06/16/16 22:13 Dose: Infused Ceftriaxone Sodium 1 gm/ (Sodium Chloride) 100 mls @ 200 mls/hr IV ONETIME ONE Stop: 06/16/16 22:03 Last Admin: 06/16/16 22:13 Dose: 200 mls/hr Sodium Chloride (Normal Saline) 1,000 mls @ 125 mls/hr IV ONETIME ONE Stop: 06/17/16 05:56 Last Admin: 06/16/16 22:13 Dose: 125 mls/hr Levofloxacin/Dextrose 750 mg/ (Premix) 150 mls @ 100 mls/hr IV Q24H [facility] Last Admin: 06/18/16 18:47 Dose: Not Given Potassium Chloride/Dextrose/Sod Cl (D5 1/2 Ns W/ 20 Meq/L Kcl) 1,000 mls @ 70 mls/hr IV ASDIRECTED [facility] Last Admin: 06/20/16 07:10 Dose: 70 mls/hr Levetiracetam 1,000 mg/ Sodium (Chloride) 110 mls @ 400 mls/hr IV ONETIME ONE Stop: 06/17/16 15:38 Last Admin: 06/17/16 16:07 Dose: 400 mls/hr Levetiracetam 1,000 mg/ Sodium (Chloride) 110 mls @ 400 mls/hr IV Q12H [facility] Last Admin: 06/18/16 12:26 Dose: Not Given Vancomycin HCl 1 gm/ Sodium (Chloride) 250 mls @ 250 mls/hr IV ONETIME ONE Stop: 06/18/16 00:03 Last Admin: 06/17/16 23:18 Dose: 250 mls/hr Magnesium Sulfate 2 gm/ Premix 50 mls @ 25 mls/hr IV ONETIME ONE Stop: 06/18/16 13:06 Last Admin: 06/18/16 12:30 Dose: 25 mls/hr Piperacillin Sod/Tazobactam (Sod 4.5 gm/ Sodium Chloride) 100 mls @ 200 mls/hr IV ONETIME ONE Stop: 06/19/16 13:29 Last Admin: 06/19/16 13:47 Dose: 200 mls/hr Magnesium Sulfate 2 gm/ Premix 50 mls @ 25 mls/hr IV ONETIME ONE Stop: 06/19/16 19:32 Last Admin: 06/19/16 18:08 Dose: 25 mls/hr Potassium Chloride 20 meq/Potassium Chloride/Dextrose/Sod Cl 1,010 mls @ 70 mls /hr IV ASDIRECTED [facility] Potassium Chloride/Dextrose/Sod Cl (D5 1/2 Ns W/ 40 Meq/L Kcl) 1,000 mls @ 69.307 mls/hr IV ASDIRECTED [facility] Last Admin: 06/20/16 11:06 Dose: 69.307 mls/hr Magnesium Sulfate 2 gm/ Premix 50 mls @ 25 mls/hr IV ONETIME ONE Stop: 06/21/16 11:33 Last Admin: 06/21/16 10:02 Dose: 25 mls/hr Lidocaine HCl (Xylocaine-Mpf 1%) Confirm Administered Dose 2 mls @ as directed .ROUTE .STK-MED ONE Stop: 06/22/16 07:19 Magnesium Sulfate 2 gm/ Premix 50 mls @ 25 mls/hr IV ONETIME ONE Stop: 06/22/16 12:42 Last Admin: 06/22/16 11:16 Dose: 25 mls/hr Lactated Ringer's (Ringers, Lactated) Confirm Administered Dose 1,000 mls @ as directed .ROUTE .STK-MED ONE Stop: 06/22/16 10:53 Magnesium Sulfate 2 gm/ Premix 50 mls @ 25 mls/hr IV ONETIME ONE Stop: 06/23/16 12:16 Last Admin: 06/23/16 11:47 Dose: 25 mls/hr Levetiracetam (Keppra) 1,000 mg PO BID [facility] Last Admin: 06/17/16 20:27 Dose: Not Given Lorazepam (Ativan) 1 mg IVPUSH ONETIME ONE Stop: 06/17/16 15:31 Last Admin: 06/17/16 16:03 Dose: 1 mg Metoprolol Tartrate (Lopressor) 2.5 mg IVPUSH Q6H PRN PRN Reason: heart rate Last Admin: 06/17/16 21:28 Dose: 2.5 mg Midazolam HCl (Versed 1 Mg/Ml) Confirm Administered Dose 2 mg .ROUTE .STK-MED ONE Stop: 06/22/16 07:14 Potassium Chloride (Potassium Chloride) 40 meq PO ONETIME ONE Stop: 06/18/16 11:08 Last Admin: 06/18/16 12:33 Dose: 40 meq Propofol (Diprivan 20 Ml) Confirm Administered Dose 200 mg .ROUTE .STK-MED ONE Stop: 06/22/16 07:14 Tizanidine HCl (Zanaflex) 2 mg PO TID [facility] Last Admin: 06/19/16 19:13 Dose: Not Given Tizanidine HCl (Zanaflex) 2 mg PO ONETIME STA Stop: 06/19/16 09:38 Last Admin: 06/19/16 10:20 Dose: 2 mg Tizanidine HCl (Zanaflex) 1 mg PO BID@1700,2300 [facility] Stop: 06/19/16 23:01 Last Admin: 06/19/16 23:24 Dose: 1 mg Consult PN Assessment/Plan Procedures: Procedures ASSAY OF BLOOD OSMOLALITY (08/05/14) ASSAY OF CK (CPK) (04/06/14) ASSAY OF LACTIC ACID (07/21/15) ASSAY OF MAGNESIUM (08/05/14) ASSAY OF NATRIURETIC PEPTIDE (03/12/14) ASSAY OF PHOSPHORUS (08/05/14) ASSAY OF TROPONIN QUANT (08/05/14) BLOOD CULTURE FOR BACTERIA (07/21/15) BLOOD GASES ANY COMBINATION (04/06/14) C-REACTIVE PROTEIN (07/21/15) CHEST X-RAY 1 VIEW FRONTAL (07/21/15) COMPLETE CBC W/AUTO DIFF WBC (07/21/15) COMPREHEN METABOLIC PANEL (07/21/15) CREATINE MB FRACTION (08/05/14) CT ANGIOGRAPHY CHEST (03/12/14) CT HEAD/BRAIN W/O DYE (04/06/14) CULTURE AEROBIC IDENTIFY (06/30/14) VIN SUBQ TISSUE 20 SQ CM/< (03/06/14) ELECTROCARDIOGRAM TRACING (04/06/14) EMERGENCY DEPT VISIT (07/21/15) EMERGENCY DEPT VISIT (08/05/14) EMERGENCY DEPT VISIT (06/30/14) EMERGENCY DEPT VISIT (03/12/14) FIBRIN DEGRADATION QUANT (03/12/14) HYDRATE IV INFUSION ADD-ON (07/21/15) HYDRATION IV INFUSION INIT (03/12/14) INFLUENZA A/B AG IA (03/12/14) INFLUENZA ASSAY W/OPTIC (06/30/14) INSERT BLADDER CATHETER (03/12/14) INSERT TEMP BLADDER CATH (06/30/14) METABOLIC PANEL TOTAL CA (06/30/14) MICROBE SUSCEPTIBLE DIFFUSE (07/21/15) MICROBE SUSCEPTIBLE DISK (07/21/15) MICROBE SUSCEPTIBLE PETER (07/21/15) MR-STAPH DNA AMP PROBE (03/06/14) OT EVALUATION (07/21/15) PROTHROMBIN TIME (03/12/14) PT EVALUATION (07/21/15) RBC SED RATE AUTOMATED (08/05/14) ROUTINE VENIPUNCTURE (07/21/15) THER/DIAG CONCURRENT INF (04/06/14) THER/PROPH/DIAG IV INF ADDON (07/21/15) THER/PROPH/DIAG IV INF INIT (07/21/15) TX/PRO/DX INJ NEW DRUG ADDON (06/30/14) URINALYSIS AUTO W/SCOPE (07/21/15) URINE BACTERIA CULTURE (07/21/15) URINE CULTURE/COLONY COUNT (09/08/15) WITHDRAWAL OF ARTERIAL BLOOD (04/06/14) X-RAY EXAM OF ABDOMEN (07/21/15) (1) Dysphagia SNOMED Code(s): 41481277, 228954507 Code(s): R13.10 - DYSPHAGIA, UNSPECIFIED Current Visit: Yes (2) Multiple sclerosis SNOMED Code(s): 43737111 Code(s): G35 - MULTIPLE SCLEROSIS Current Visit: Yes My Orders last 24 hours: My Active Orders 06/22/16 16:04 Communication Order [RC] ASDIRECTED Plan: Patient seen and examined by me. I agree with documentation as per MADELAINE Jewell.
--- NOTE | 2016-06-21 19:29 | PCM.PREANE ---
Preanesthetic Assessment - Anesthesia/Transfusion/Family Hx Transfusion History: Unknown - Physical Assessment Pulse: 93 O2 Sat by Pulse Oximetry: 96 Respiratory Rate: 20 Blood Pressure: 119/67 Temperature: 37.3 C Vital Signs: Last Vital Signs Temp 37.3 C 06/21/16 16:12 Pulse 93 06/21/16 16:12 Resp 20 06/21/16 16:12 BP 119/67 06/21/16 16:12 Pulse Ox 96 06/21/16 16:12 Height: 1.68 m Weight: 73.482 kg - Lab Values: Laboratory Last Values WBC 9.37 K/mm3 (3.98-10.04) 06/21/16 06:05 RBC 3.82 M/mm3 (3.98-5.22) L 06/21/16 06:05 Hgb 10.9 gm/L (11.2-15.7) L 06/21/16 06:05 Hct 32.7 % (34.1-44.9) L 06/21/16 06:05 MCV 85.6 fl (79.4-94.8) 06/21/16 06:05 MCH 28.5 pg (25.6-32.2) 06/21/16 06:05 MCHC 33.3 g/dl (32.2-35.5) 06/21/16 06:05 RDW Std Deviation 50.8 fL (36.4-46.3) H 06/21/16 06:05 Plt Count 308 K/mm3 (182-369) 06/21/16 06:05 MPV 9.8 fl (9.4-12.3) 06/21/16 06:05 Neut % (Auto) 55.6 % (34.0-71.1) 06/21/16 06:05 Lymph % (Auto) 31.4 % (19.3-51.7) 06/21/16 06:05 [place] % (Auto) 9.4 % (4.7-12.5) 06/21/16 06:05 Eos % (Auto) 1.9 (0.7-5.8) 06/21/16 06:05 Baso % (Auto) 1.3 % (0.1-1.2) H 06/21/16 06:05 Neut # (Auto) 5.21 K/mm3 (1.56-6.13) 06/21/16 06:05 Lymph # (Auto) 2.94 K/mm3 (1.18-3.74) 06/21/16 06:05 [place] # (Auto) 0.88 K/mm3 (0.24-0.36) H 06/21/16 06:05 Eos # (Auto) 0.18 K/mm3 (0.04-0.36) 06/21/16 06:05 Baso # (Auto) 0.12 K/mm3 (0.01-0.08) H 06/21/16 06:05 Neutrophils % (Manual) 65 % (40-60) H 06/16/16 20:25 Band Neutrophils % 0 % (0-10) 06/16/16 20:25 Lymphocytes % (Manual) 20 % (20-40) 06/16/16 20:25 Atypical Lymphs % 2 % 06/16/16 20:25 Monocytes % (Manual) 12 % (2-10) H 06/16/16 20:25 Eosinophils % (Manual) 1 % (0.7-5.8) 06/16/16 20:25 Basophils % (Manual) 0 (0.1-1.2) L 06/16/16 20:25 Manual Slide Review Normal smear 06/21/16 06:05 Platelet Estimate Adequate 06/16/16 20:25 Plt Morphology Comment Normal 06/16/16 20:25 Poikilocytosis 1+ slight 06/16/16 20:25 Anisocytosis 1+ slight 06/16/16 20:25 Macrocytosis 1+ slight 06/16/16 20:25 Target Cells 1+ slight 06/16/16 20:25 RBC Morph Comment Abnormal 06/16/16 20:25 Sodium 138 mEq/L (136-145) 06/21/16 06:05 Potassium 4.1 mEq/L (3.5-5.1) 06/21/16 06:05 Chloride 103 mEq/L (98-107) 06/21/16 06:05 Carbon Dioxide 24 mEq/L (21-32) 06/21/16 06:05 Anion Gap 15.1 (5-15) H 06/21/16 06:05 BUN 3 mg/dL (7-18) L 06/21/16 06:05 Creatinine 0.8 mg/dL (0.55-1.02) 06/21/16 06:05 Est Cr Clr Drug Dosing 76.13 mL/min 06/21/16 06:05 Estimated GFR (MDRD) > 60 mL/min (>60) 06/21/16 06:05 BUN/Creatinine Ratio 3.8 (14-18) L 06/21/16 06:05 Glucose 103 mg/dL (74-106) 06/21/16 06:05 POC Glucose 106 mg/dL (70-105) H 06/21/16 16:18 Lactic Acid 1.3 mmol/L (0.4-2.0) 06/16/16 20:25 Calcium 8.9 mg/dL (8.5-10.1) 06/21/16 06:05 Magnesium 1.5 mg/dl (1.8-2.4) L 06/21/16 06:05 Total Bilirubin 0.3 mg/dL (0.2-1.0) 06/16/16 20:25 AST 29 U/L (15-37) 06/16/16 20:25 ALT 32 U/L (14-59) 06/16/16 20:25 Alkaline Phosphatase 78 U/L (46-116) 06/16/16 20:25 C-Reactive Protein 32.3 mg/dL (<1.0) H* 06/19/16 06:20 Total Protein 7.5 g/dl (6.4-8.2) 06/16/16 20:25 Albumin 2.6 g/dl (3.4-5.0) L 06/16/16 20:25 Globulin 4.9 gm/dL 06/16/16 20:25 Albumin/Globulin Ratio 0.5 (1-2) L 06/16/16 20:25 Urine Color Yellow (Yellow) 06/16/16 20:14 Urine Appearance Cloudy (Clear) H 06/16/16 20:14 Urine pH 8.5 (5.0-8.0) H 06/16/16 20:14 Ur Specific [place] 1.020 (1.005-1.030) 06/16/16 20:14 Urine Protein 3+ (Negative) H 06/16/16 20:14 Urine Glucose (UA) Negative (Negative) 06/16/16 20:14 Urine Ketones Trace (Negative) H 06/16/16 20:14 Urine Occult Blood 3+ (Negative) H 06/16/16 20:14 Urine Nitrite Negative (Negative) 06/16/16 20:14 Urine Bilirubin Negative (Negative) 06/16/16 20:14 Urine Urobilinogen 0.2 (0.2-1.0) 06/16/16 20:14 Ur Leukocyte Esterase 3+ (Negative) H 06/16/16 20:14 Urine RBC 10-20 /hpf (0-5) H 06/16/16 20:14 Urine WBC 10-20 /hpf (0-5) H 06/16/16 20:14 Ur Squamous Epith Cells 0-5 /hpf (0-5) 06/16/16 20:14 Calcium Phosphate Cryst Occasional (NONE) 06/16/16 20:14 Urine Bacteria Many /hpf (FEW) H 06/16/16 20:14 Urine Mucus Not seen /hpf (FEW) 06/16/16 20:14 Vancomycin Trough 17.9 (10.0-20.0) 06/19/16 10:50 Levetiracetam 17 ug/mL (5-30) 06/17/16 06:26 - Allergies Allergies/Adverse Reactions: Allergies Allergy/AdvReac Type Severity Reaction Status Date / Time No Known Allergies Allergy Verified 07/21/15 15:34 PreAnesthesia Questionnaire HEENT History: Reports: Other (see below) Other HEENT History: dysphagia Cardiovascular History: Reports: None Gastrointestinal History: Reports: Chronic constipation Genitourinary History: Reports: UTI, recurrent Other Genitourinary History: sepsis secondary to e-coli Musculoskeletal History: Reports: Back pain, chronic, Osteoarthritis, Osteoporosis, Other (see below) Other Musculoskeletal History: MS Neurological History: Reports: Alzheimers disease, CVA, MS Other Neuro History: chronic embolisms/thrombosis of veins, recurrent strokes, convulsions Psychiatric History: Reports: Alzheimers disease (Questionable (documented on patients chart)), Depression Other Psychiatric History: insomnia Endocrine/Metabolic History: Reports: Diabetes, type II Hematologic History: Reports: Anemia, Other (see below) Other Hematologic History: eosinophilia - Infectious Disease History Infectious Disease History: Reports: Other (see below) Other Infectious Disease History: unknown pt unable to answer and it is not listed on [facility] paperwork - Past Surgical History Head Surgeries/Procedures: Reports: None HEENT Surgical History: Reports: None GI Surgical History: Reports: None Female Surgical History: Reports: None Endocrine Surgical History: Reports: None Musculoskeletal Surgical History: Reports: None - SUBSTANCE USE Smoking Status *Q: Unknown Ever Smoked Tobacco Use Within Last Twelve Months: No Second Hand Smoke Exposure: No Days Per Week of Alcohol Use: 0 Recreational Drug Use History: No - HOME MEDS Home Medications: Home Meds Baclofen 30 mg PO TID 04/06/14 [History] FLUoxetine [PROzac] 10 mg PO DAILY 04/06/14 [History] LORazepam [Ativan] 0.25 mg PO BID 04/06/14 [History] tiZANidine HCl [Zanaflex] 2 mg PO TID 04/06/14 [History] Acetaminophen [Tylenol] 2 tab PO Q4HR PRN 06/30/14 [History] Cholecalciferol (Vitamin D3) [Vitamin D3] 2,000 unit PO DAILY 06/30/14 [History] Docusate Sodium/Sennosides [Senna Plus] 2 tab PO BID 06/30/14 [History] Magnesium Oxide 400 mg PO QPM 06/30/14 [History] Multivitamin with Minerals [Multiple Vitamin] 1 tab PO DAILY 06/30/14 [History] levETIRAcetam [Keppra] 1,000 mg PO BID 06/30/14 [History] Lactulose [Chronulac] 15 ml PO DAILY PRN 08/05/14 [History] Bisacodyl [Dulcolax] 10 mg PO DAILY PRN 07/21/15 [History] Bisacodyl [Dulcolax] 10 mg RC ASDIRECTED PRN 07/21/15 [History] Ciprofloxacin [Ciprofloxacin HCl] 250 mg PO BID 06/17/16 [History] - CURRENT (IN HOUSE) MEDS Current Meds: Current Medications Acetaminophen (Tylenol) 650 mg RECTAL Q6H PRN PRN Reason: Fever Last Admin: 06/19/16 15:07 Dose: 650 mg Baclofen (Lioresal) 15 mg PO TID [facility] Last Admin: 06/21/16 15:29 Dose: 15 mg Dextrose/Water (Dextrose 50% In Water) 50 ml IVPUSH ASDIRECTED PRN PRN Reason: Hypoglycemia Enoxaparin Sodium (Lovenox) 40 mg SUBCUT DAILY [facility] Last Admin: 06/21/16 08:09 Dose: 40 mg Fluoxetine HCl (Prozac) 10 mg PO DAILY [facility] Last Admin: 06/21/16 08:10 Dose: 10 mg Hydralazine HCl (Apresoline) 20 mg IVPUSH Q8H PRN PRN Reason: Hypertension Vancomycin HCl 1 gm/ Sodium (Chloride) 250 mls @ 167 mls/hr IV Q12H [facility] Last Admin: 06/21/16 15:26 Dose: 167 mls/hr Sodium Chloride (Normal Saline) 500 mls @ 999 mls/min IV .BOLUS [facility] Last Admin: 06/18/16 16:45 Dose: 999 mls/min Piperacillin Sod/Tazobactam (Sod 4.5 gm/ Sodium Chloride) 100 mls @ 25 mls/hr IV Q8H [facility] Last Admin: 06/21/16 17:04 Dose: 25 mls/hr Potassium Chloride/Dextrose/Sod Cl (D5 1/2 Ns W/ 40 Meq/L Kcl) 1,000 mls @ 70 mls/hr IV ASDIRECTED [facility] Last Admin: 06/21/16 15:33 Dose: 70 mls/hr Insulin Aspart (Novolog) 0 unit SUBCUT QIDACANDBED [facility] PRN Reason: Protocol Last Admin: 06/21/16 17:03 Dose: Not Given Levetiracetam (Keppra) 1,000 mg PO BID [facility] Last Admin: 06/21/16 08:10 Dose: 1,000 mg Lorazepam (Ativan) 1 mg IVPUSH Q4H PRN PRN Reason: Seizures Last Admin: 06/21/16 15:31 Dose: 1 mg Magnesium Oxide (Magnesium Oxide) 400 mg PO QPM [facility] Last Admin: 06/21/16 17:06 Dose: 400 mg Metoprolol Tartrate (Lopressor) 2.5 mg IVPUSH Q4H PRN PRN Reason: heart rate Last Admin: 06/18/16 01:39 Dose: 2.5 mg Senna/Docusate Sodium (Senna Plus) 2 tab PO BID [facility] Last Admin: 06/21/16 08:10 Dose: 2 tab Sodium Chloride (Saline Flush) 10 ml FLUSH ASDIRECTED PRN PRN Reason: Keep Vein Open Last Admin: 06/16/16 20:18 Dose: 10 ml Tizanidine HCl (Zanaflex) 1 mg PO TID [facility] Last Admin: 06/21/16 15:29 Dose: 1 mg Vancomycin HCl (Pharmacy To Dose - Vancomycin) 0 dose .XX ASDIRECTED PRN PRN Reason: RX DOSE Discontinued Medications Albuterol (Proventil Neb Soln) 0.63 mg NEB ONETIME ONE Stop: 06/19/16 17:53 Last Admin: 06/19/16 18:02 Dose: Not Given Albuterol (Proventil Neb Soln) 2.5 mg NEB ONETIME ONE Stop: 06/19/16 17:53 Last Admin: 06/19/16 18:01 Dose: Not Given Albuterol (Proventil Neb Soln) Confirm Administered Dose 2.5 mg .ROUTE .STK-MED ONE Stop: 06/19/16 17:54 Last Admin: 06/19/16 17:58 Dose: 2.5 mg Albuterol (Proventil Neb Soln) 0.63 mg NEB QIDRT [facility] Albuterol (Proventil Neb Soln) 2.5 mg NEB QIDRT [facility] Last Admin: 06/21/16 06:15 Dose: Not Given Baclofen (Lioresal) 30 mg PO TID [facility] Last Admin: 06/18/16 15:29 Dose: 30 mg Baclofen (Lioresal) 5 mg PO TID [facility] Last Admin: 06/19/16 07:59 Dose: 5 mg Baclofen (Lioresal) 10 mg PO TID [facility] Last Admin: 06/19/16 19:13 Dose: Not Given Baclofen (Lioresal) 5 mg PO ONETIME ONE Stop: 06/19/16 09:38 Last Admin: 06/19/16 10:20 Dose: 5 mg Baclofen (Lioresal) 5 mg PO TID [facility] Baclofen (Lioresal) 5 mg PO TID [facility] Last Admin: 06/20/16 08:08 Dose: 5 mg Baclofen (Lioresal) 5 mg PO BID@1700,2300 [facility] Stop: 06/19/16 23:01 Last Admin: 06/19/16 19:13 Dose: Not Given Baclofen (Lioresal) 5 mg PO BID@1700,2300 [facility] Stop: 06/19/16 23:01 Last Admin: 06/19/16 23:25 Dose: 5 mg Baclofen (Lioresal) 5 mg PO ONETIME ONE Stop: 06/19/16 17:17 Last Admin: 06/19/16 17:26 Dose: 5 mg Baclofen (Lioresal) 10 mg PO TID [facility] Last Admin: 06/20/16 14:32 Dose: 10 mg Bisacodyl (Dulcolax) 10 mg RECTAL ONETIME ONE Stop: 06/19/16 08:43 Last Admin: 06/19/16 09:03 Dose: 10 mg Diphtheria/Tetanus/Acell Pertussis (Boostrix) 0.5 ml IM .ONCE ONE Stop: 06/18/16 11:52 Last Admin: 06/18/16 12:24 Dose: Not Given Sodium Chloride (Normal Saline) 1,000 mls @ 999 mls/hr IV ONETIME ONE Stop: 06/16/16 20:50 Last Infusion: 06/16/16 22:13 Dose: Infused Ceftriaxone Sodium 1 gm/ (Sodium Chloride) 100 mls @ 200 mls/hr IV ONETIME ONE Stop: 06/16/16 22:03 Last Admin: 06/16/16 22:13 Dose: 200 mls/hr Sodium Chloride (Normal Saline) 1,000 mls @ 125 mls/hr IV ONETIME ONE Stop: 06/17/16 05:56 Last Admin: 06/16/16 22:13 Dose: 125 mls/hr Levofloxacin/Dextrose 750 mg/ (Premix) 150 mls @ 100 mls/hr IV Q24H [facility] Last Admin: 06/18/16 18:47 Dose: Not Given Potassium Chloride/Dextrose/Sod Cl (D5 1/2 Ns W/ 20 Meq/L Kcl) 1,000 mls @ 70 mls/hr IV ASDIRECTED [facility] Last Admin: 06/20/16 07:10 Dose: 70 mls/hr Levetiracetam 1,000 mg/ Sodium (Chloride) 110 mls @ 400 mls/hr IV ONETIME ONE Stop: 06/17/16 15:38 Last Admin: 06/17/16 16:07 Dose: 400 mls/hr Levetiracetam 1,000 mg/ Sodium (Chloride) 110 mls @ 400 mls/hr IV Q12H [facility] Last Admin: 06/18/16 12:26 Dose: Not Given Vancomycin HCl 1 gm/ Sodium (Chloride) 250 mls @ 250 mls/hr IV ONETIME ONE Stop: 06/18/16 00:03 Last Admin: 06/17/16 23:18 Dose: 250 mls/hr Magnesium Sulfate 2 gm/ Premix 50 mls @ 25 mls/hr IV ONETIME ONE Stop: 06/18/16 13:06 Last Admin: 06/18/16 12:30 Dose: 25 mls/hr Piperacillin Sod/Tazobactam (Sod 4.5 gm/ Sodium Chloride) 100 mls @ 200 mls/hr IV ONETIME ONE Stop: 06/19/16 13:29 Last Admin: 06/19/16 13:47 Dose: 200 mls/hr Magnesium Sulfate 2 gm/ Premix 50 mls @ 25 mls/hr IV ONETIME ONE Stop: 06/19/16 19:32 Last Admin: 06/19/16 18:08 Dose: 25 mls/hr Potassium Chloride 20 meq/Potassium Chloride/Dextrose/Sod Cl 1,010 mls @ 70 mls /hr IV ASDIRECTED [facility] Potassium Chloride/Dextrose/Sod Cl (D5 1/2 Ns W/ 40 Meq/L Kcl) 1,000 mls @ 69.307 mls/hr IV ASDIRECTED [facility] Last Admin: 06/20/16 11:06 Dose: 69.307 mls/hr Magnesium Sulfate 2 gm/ Premix 50 mls @ 25 mls/hr IV ONETIME ONE Stop: 06/21/16 11:33 Last Admin: 06/21/16 10:02 Dose: 25 mls/hr Levetiracetam (Keppra) 1,000 mg PO BID [facility] Last Admin: 06/17/16 20:27 Dose: Not Given Lorazepam (Ativan) 1 mg IVPUSH ONETIME ONE Stop: 06/17/16 15:31 Last Admin: 06/17/16 16:03 Dose: 1 mg Metoprolol Tartrate (Lopressor) 2.5 mg IVPUSH Q6H PRN PRN Reason: heart rate Last Admin: 06/17/16 21:28 Dose: 2.5 mg Potassium Chloride (Potassium Chloride) 40 meq PO ONETIME ONE Stop: 06/18/16 11:08 Last Admin: 06/18/16 12:33 Dose: 40 meq Tizanidine HCl (Zanaflex) 2 mg PO TID [facility] Last Admin: 06/19/16 19:13 Dose: Not Given Tizanidine HCl (Zanaflex) 2 mg PO ONETIME [facility] Stop: 06/19/16 09:38 Last Admin: 06/19/16 10:20 Dose: 2 mg Tizanidine HCl (Zanaflex) 1 mg PO BID@1700,2300 [facility] Stop: 06/19/16 23:01 Last Admin: 06/19/16 23:24 Dose: 1 mg Preanesthetic Assessment - ANESTHESIA/TRANSFUSION/FAMILY HX Anesthesia/Transfusion History: Unknown Type of Anesthesia Reaction: Reports: Unknown Family History of Anesthesia Reaction: No Intubation History: Unknown Type of Transfusion Reactions: Reports: Unknown Additional History: Patient has MS with contractures. 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 Patient is the decision maker per nursing staff and patient. Contacted patients sister (Isabel) and mother (Viviane) and to update them on the patients condition/ plan for procedure on 06-22-16. Sister and mother both agree for a MAC anesthetic for Violette and also said they were at the hospital earlier in the day and read the PEG tube pamphlet to the patient and she agreed to proceed with the procedure. Telephone consent obtained from mother and sister. Will attempt to obtain actual patients consent the morning of surgery in hopes of the patient being less sedated and more awake. Most information obtained from prior medical records and by nodding of the patient to yes or no questions. - REVIEW OF SYSTEMS Constitutional: Reports: fever (low grade), feeling ill [employer]: Reports: seizure (seizure like activity recently, patient taking keppra and benzos), weakness (MS with contractures) Respiratory: Reports: no symptoms Cardiovascular: Reports: no symptoms GI: Reports: difficulty swallowing Other: Reports: Diabetes, Depression - PHYSICAL ASSESSMENT HR: 93 O2 Sat by Pulse Oximetry: 96 RR: 20 BP: 119/67 Temp: 37.3 C Vital Signs: Last Vital Signs Temp 37.3 C 06/21/16 16:12 Pulse 93 06/21/16 16:12 Resp 20 06/21/16 16:12 BP 119/67 06/21/16 16:12 Pulse Ox 96 06/21/16 16:12 Height: 1.68 m Weight: 73.482 kg NPO Status Date: 06/21/16 NPO Status Time: 23:59 ASA Class: 3 Mental Status: Other (Patient has a questionable history of Alzheimers and has been administered benzos for agitation and questionable seizure like activity) Airway Class: Mallampati = 2 (Difficult to assess due to patient unable to open mouth properly due to sedation) Dentition: Reports: Normal Dentition (Difficult to assess due to patient unable to open mouth properly due to sedation) Thyro-Mental Finger Breadths: 3 Mouth Opening Finger Breadths: 1 ROM/Head Extension: Full Respiratory Status: diminished breath sounds Cardiovascular Status: regular rate & rhythm, normal S1, S2, no murmur, blood pressure WNL - LAB Values: Laboratory Last Values WBC 9.37 K/mm3 (3.98-10.04) 06/21/16 06:05 RBC 3.82 M/mm3 (3.98-5.22) L 06/21/16 06:05 Hgb 10.9 gm/L (11.2-15.7) L 06/21/16 06:05 Hct 32.7 % (34.1-44.9) L 06/21/16 06:05 MCV 85.6 fl (79.4-94.8) 06/21/16 06:05 MCH 28.5 pg (25.6-32.2) 06/21/16 06:05 MCHC 33.3 g/dl (32.2-35.5) 06/21/16 06:05 RDW Std Deviation 50.8 fL (36.4-46.3) H 06/21/16 06:05 Plt Count 308 K/mm3 (182-369) 06/21/16 06:05 MPV 9.8 fl (9.4-12.3) 06/21/16 06:05 Neut % (Auto) 55.6 % (34.0-71.1) 06/21/16 06:05 Lymph % (Auto) 31.4 % (19.3-51.7) 06/21/16 06:05 [place] % (Auto) 9.4 % (4.7-12.5) 06/21/16 06:05 Eos % (Auto) 1.9 (0.7-5.8) 06/21/16 06:05 Baso % (Auto) 1.3 % (0.1-1.2) H 06/21/16 06:05 Neut # (Auto) 5.21 K/mm3 (1.56-6.13) 06/21/16 06:05 Lymph # (Auto) 2.94 K/mm3 (1.18-3.74) 06/21/16 06:05 [place] # (Auto) 0.88 K/mm3 (0.24-0.36) H 06/21/16 06:05 Eos # (Auto) 0.18 K/mm3 (0.04-0.36) 06/21/16 06:05 Baso # (Auto) 0.12 K/mm3 (0.01-0.08) H 06/21/16 06:05 Neutrophils % (Manual) 65 % (40-60) H 06/16/16 20:25 Band Neutrophils % 0 % (0-10) 06/16/16 20:25 Lymphocytes % (Manual) 20 % (20-40) 06/16/16 20:25 Atypical Lymphs % 2 % 06/16/16 20:25 Monocytes % (Manual) 12 % (2-10) H 06/16/16 20:25 Eosinophils % (Manual) 1 % (0.7-5.8) 06/16/16 20:25 Basophils % (Manual) 0 (0.1-1.2) L 06/16/16 20:25 Manual Slide Review Normal smear 06/21/16 06:05 Platelet Estimate Adequate 06/16/16 20:25 Plt Morphology Comment Normal 06/16/16 20:25 Poikilocytosis 1+ slight 06/16/16 20:25 Anisocytosis 1+ slight 06/16/16 20:25 Macrocytosis 1+ slight 06/16/16 20:25 Target Cells 1+ slight 06/16/16 20:25 RBC Morph Comment Abnormal 06/16/16 20:25 Sodium 138 mEq/L (136-145) 06/21/16 06:05 Potassium 4.1 mEq/L (3.5-5.1) 06/21/16 06:05 Chloride 103 mEq/L (98-107) 06/21/16 06:05 Carbon Dioxide 24 mEq/L (21-32) 06/21/16 06:05 Anion Gap 15.1 (5-15) H 06/21/16 06:05 BUN 3 mg/dL (7-18) L 06/21/16 06:05 Creatinine 0.8 mg/dL (0.55-1.02) 06/21/16 06:05 Est Cr Clr Drug Dosing 76.13 mL/min 06/21/16 06:05 Estimated GFR (MDRD) > 60 mL/min (>60) 06/21/16 06:05 BUN/Creatinine Ratio 3.8 (14-18) L 06/21/16 06:05 Glucose 103 mg/dL (74-106) 06/21/16 06:05 POC Glucose 106 mg/dL (70-105) H 06/21/16 16:18 Lactic Acid 1.3 mmol/L (0.4-2.0) 06/16/16 20:25 Calcium 8.9 mg/dL (8.5-10.1) 06/21/16 06:05 Magnesium 1.5 mg/dl (1.8-2.4) L 06/21/16 06:05 Total Bilirubin 0.3 mg/dL (0.2-1.0) 06/16/16 20:25 AST 29 U/L (15-37) 06/16/16 20:25 ALT 32 U/L (14-59) 06/16/16 20:25 Alkaline Phosphatase 78 U/L (46-116) 06/16/16 20:25 C-Reactive Protein 32.3 mg/dL (<1.0) H* 06/19/16 06:20 Total Protein 7.5 g/dl (6.4-8.2) 06/16/16 20:25 Albumin 2.6 g/dl (3.4-5.0) L 06/16/16 20:25 Globulin 4.9 gm/dL 06/16/16 20:25 Albumin/Globulin Ratio 0.5 (1-2) L 06/16/16 20:25 Urine Color Yellow (Yellow) 06/16/16 20:14 Urine Appearance Cloudy (Clear) H 06/16/16 20:14 Urine pH 8.5 (5.0-8.0) H 06/16/16 20:14 Ur Specific [place] 1.020 (1.005-1.030) 06/16/16 20:14 Urine Protein 3+ (Negative) H 06/16/16 20:14 Urine Glucose (UA) Negative (Negative) 06/16/16 20:14 Urine Ketones Trace (Negative) H 06/16/16 20:14 Urine Occult Blood 3+ (Negative) H 06/16/16 20:14 Urine Nitrite Negative (Negative) 06/16/16 20:14 Urine Bilirubin Negative (Negative) 06/16/16 20:14 Urine Urobilinogen 0.2 (0.2-1.0) 06/16/16 20:14 Ur Leukocyte Esterase 3+ (Negative) H 06/16/16 20:14 Urine RBC 10-20 /hpf (0-5) H 06/16/16 20:14 Urine WBC 10-20 /hpf (0-5) H 06/16/16 20:14 Ur Squamous Epith Cells 0-5 /hpf (0-5) 06/16/16 20:14 Calcium Phosphate Cryst Occasional (NONE) 06/16/16 20:14 Urine Bacteria Many /hpf (FEW) H 06/16/16 20:14 Urine Mucus Not seen /hpf (FEW) 06/16/16 20:14 Vancomycin Trough 17.9 (10.0-20.0) 06/19/16 10:50 Levetiracetam 17 ug/mL (5-30) 06/17/16 06:26 - ALLERGIES Allergies/Adverse Reactions: Allergies Allergy/AdvReac Type Severity Reaction Status Date / Time No Known Allergies Allergy Verified 07/21/15 15:34 - BLOOD Blood Available: No Product(s) Available: None - ANESTHESIA PLAN Preop Beta Dimitri: No Anesthesia Type Planned: MAC (Patients nodded head appropiately when I was explaining the anesthetic protion of her procedure to her. Risks and complications explained to both the patient and family (sister and mother)) - ACKNOWLEDGEMENTS Pt an Appropriate Candidate for the Planned Anesthesia: Yes Alternatives and Risks of Anesthesia Discussed w Pt/Guardian: Yes Pt/Guardian Understands and Agrees with Anesthesia Plan: Yes
[2016-06-22] MEDS: LORazepam 2 MG/ML MDV IVPUSH PRN (03:34)
[2016-06-22] MEDS: Piperacillin/Tazobactam 4.5 GM in Sodium Chloride 0.9% 100 ML IV SCH ×3 (04:29→21:33)
[2016-06-22] MEDS: Insulin Aspart 100 Units/ML 3 ML Pen SUBCUT SCH ×4 (06:06→21:33)
[2016-06-22] MEDS: D5 1/2 NS w/ 40 mEq/L KCl 1,000 ML IV SCH (06:06)
[2016-06-22] MEDS ORDERED: Propofol 200 MG/20 ML SDV ONE (07:13)
[2016-06-22] MEDS ORDERED: fentaNYL 100 MCG/2 ML SDV ONE (07:13)
[2016-06-22] MEDS ORDERED: Midazolam 1 MG/ML 2 ML SDV ONE (07:13)
[2016-06-22] MEDS ORDERED: Lidocaine 1% 2 ML ONE (07:18)
--- NOTE | 2016-06-22 08:22 | PCM.POSTAN ---
POST ANESTHESIA ASSESSMENT - MENTAL STATUS Mental Status: somnolent (transfered to recoverey room for further monitoring ) - VITAL SIGNS Pulse Rate: 90 SaO2: 98 Resp Rate: 16 Blood Pressure: 149/83 Temperature: 98.1 C - RESPIRATORY Respiratory Status: respiratory rate WNL, airway patent, O2 saturation stable - CARDIOVASCULAR CV Status: pulse rate WNL, elevated blood pressure - GASTROINTESTINAL GI Status: no symptoms - POST OP HYDRATION Hydration Status: adequate & stable - OBSERVATIONS Free Text/Narrative:: patient not reporting a pain level
[2016-06-22] MEDS ORDERED: Magnesium Sulfate/Water 2 GM in Premix Bag 1 BAG IV ONE (10:43)
[2016-06-22] MEDS ORDERED: Lactated Ringers 1,000 ML ONE (10:52)
[2016-06-22] MEDS: tiZANidine 4 MG Tab PO SCH ×3 (11:14→21:28)
[2016-06-22] MEDS: Baclofen 10 MG Tab PO SCH ×3 (11:14→21:27)
[2016-06-22] MEDS: FLUoxetine 10 MG Cap PO SCH (11:14)
[2016-06-22] MEDS: levETIRAcetam 500 MG Tab PO SCH ×2 (11:14→21:28)
--- NOTE | 2016-06-22 12:01 | PCM48HPAN ---
Post Anesthesia Note - EVALUATION WITHIN 48HRS OF ANESTHETIC Vital Signs in Normal Range: Yes Patient Participated in Evaluation: Yes Respiratory Function Stable: Yes Airway Patent: Yes Cardiovascular Function Stable: Yes Hydration Status Stable: Yes Pain Control Satisfactory: Yes Nausea and Vomiting Control Satisfactory: Yes Mental Status Recovered: Yes - COMMENTS/OBSERVATIONS Free Text/Narrative:: Patient evaluated and RN spoke to post discharge.
--- NOTE | 2016-06-22 12:30 | PCM.PN ---
- General Info Date of Service: 06/22/16 Functional Status: Reports: pain controlled - Review of Systems General: Reports: No Symptoms HEENT: Reports: no symptoms Pulmonary: Reports: no symptoms Cardiovascular: Reports: No Symptoms Gastrointestinal: Reports: No symptoms Genitourinary: Reports: no symptoms Musculoskeletal: Reports: no symptoms Skin: Reports: no symptoms Neurological: Reports: No Symptoms Psychiatric: Reports: no symptoms - Patient Data Vitals - most recent: Last Vital Signs Temp 36.4 C 06/22/16 08:40 Pulse 90 06/22/16 08:22 Resp 16 06/22/16 08:40 BP 116/75 06/22/16 08:40 Pulse Ox 96 06/22/16 08:40 Weight - most recent: 73.482 kg I&O - last 24 hours: Intake & Output 06/21/16 06/22/16 06/22/16 22:59 06:59 14:59 Intake Total 1537 1108 Balance 1537 1108 Lab Results last 24 hrs: Laboratory Results - last 24 hr 06/17/16 06/20/16 06/20/16 Range/Units 06:26 11:12 17:10 WBC (3.98-10.04) K/mm3 RBC (3.98-5.22) M/mm3 Hgb (11.2-15.7) gm/L Hct (34.1-44.9) % MCV (79.4-94.8) fl MCH (25.6-32.2) pg MCHC (32.2-35.5) g/dl RDW Std Deviation (36.4-46.3) fL Plt Count (182-369) K/mm3 MPV (9.4-12.3) fl Neut % (Auto) (34.0-71.1) % Lymph % (Auto) (19.3-51.7) % Harvey % (Auto) (4.7-12.5) % Eos % (Auto) (0.7-5.8) Baso % (Auto) (0.1-1.2) % Neut # (Auto) (1.56-6.13) K/mm3 Lymph # (Auto) (1.18-3.74) K/mm3 Harvey # (Auto) (0.24-0.36) K/mm3 Eos # (Auto) (0.04-0.36) K/mm3 Baso # (Auto) (0.01-0.08) K/mm3 Manual Slide Review Sodium (136-145) mEq/L Potassium (3.5-5.1) mEq/L Chloride (98-107) mEq/L Carbon Dioxide (21-32) mEq/L Anion Gap (5-15) BUN (7-18) mg/dL Creatinine (0.55-1.02) mg/dL Est Cr Clr Drug Dosing mL/min Estimated GFR (MDRD) (>60) mL/min BUN/Creatinine Ratio (14-18) Glucose (74-106) mg/dL POC Glucose 124 H 123 H (70-105) mg/dL Calcium (8.5-10.1) mg/dL Magnesium (1.8-2.4) mg/dl Levetiracetam 17 (5-30) ug/mL 06/21/16 06/21/16 06/22/16 Range/Units 16:18 21:10 06:10 WBC (3.98-10.04) K/mm3 RBC (3.98-5.22) M/mm3 Hgb (11.2-15.7) gm/L Hct (34.1-44.9) % MCV (79.4-94.8) fl MCH (25.6-32.2) pg MCHC (32.2-35.5) g/dl RDW Std Deviation (36.4-46.3) fL Plt Count (182-369) K/mm3 MPV (9.4-12.3) fl Neut % (Auto) (34.0-71.1) % Lymph % (Auto) (19.3-51.7) % Harvey % (Auto) (4.7-12.5) % Eos % (Auto) (0.7-5.8) Baso % (Auto) (0.1-1.2) % Neut # (Auto) (1.56-6.13) K/mm3 Lymph # (Auto) (1.18-3.74) K/mm3 Harvey # (Auto) (0.24-0.36) K/mm3 Eos # (Auto) (0.04-0.36) K/mm3 Baso # (Auto) (0.01-0.08) K/mm3 Manual Slide Review Sodium (136-145) mEq/L Potassium (3.5-5.1) mEq/L Chloride (98-107) mEq/L Carbon Dioxide (21-32) mEq/L Anion Gap (5-15) BUN (7-18) mg/dL Creatinine (0.55-1.02) mg/dL Est Cr Clr Drug Dosing mL/min Estimated GFR (MDRD) (>60) mL/min BUN/Creatinine Ratio (14-18) Glucose (74-106) mg/dL POC Glucose 106 H 117 H 102 (70-105) mg/dL Calcium (8.5-10.1) mg/dL Magnesium (1.8-2.4) mg/dl Levetiracetam (5-30) ug/mL 06/22/16 06/22/16 06/22/16 Range/Units 06:16 06:16 11:12 WBC 9.66 (3.98-10.04) K/mm3 RBC 3.91 L (3.98-5.22) M/mm3 Hgb 11.0 L (11.2-15.7) gm/L Hct 34.3 (34.1-44.9) % MCV 87.7 (79.4-94.8) fl MCH 28.1 (25.6-32.2) pg MCHC 32.1 L (32.2-35.5) g/dl RDW Std Deviation 54.1 H (36.4-46.3) fL Plt Count 418 H (182-369) K/mm3 MPV 9.0 L (9.4-12.3) fl Neut % (Auto) 56.1 (34.0-71.1) % Lymph % (Auto) 30.4 (19.3-51.7) % Harvey % (Auto) 9.4 (4.7-12.5) % Eos % (Auto) 2.5 (0.7-5.8) Baso % (Auto) 1.3 H (0.1-1.2) % Neut # (Auto) 5.41 (1.56-6.13) K/mm3 Lymph # (Auto) 2.94 (1.18-3.74) K/mm3 Harvey # (Auto) 0.91 H (0.24-0.36) K/mm3 Eos # (Auto) 0.24 (0.04-0.36) K/mm3 Baso # (Auto) 0.13 H (0.01-0.08) K/mm3 Manual Slide Review Normal smear Sodium 140 (136-145) mEq/L Potassium 4.0 (3.5-5.1) mEq/L Chloride 104 (98-107) mEq/L Carbon Dioxide 26 (21-32) mEq/L Anion Gap 14.0 (5-15) BUN 3 L (7-18) mg/dL Creatinine 0.8 (0.55-1.02) mg/dL Est Cr Clr Drug Dosing 76.55 mL/min Estimated GFR (MDRD) > 60 (>60) mL/min BUN/Creatinine Ratio 3.8 L (14-18) Glucose 105 (74-106) mg/dL POC Glucose 92 (70-105) mg/dL Calcium 9.9 (8.5-10.1) mg/dL Magnesium 1.7 L (1.8-2.4) mg/dl Levetiracetam (5-30) ug/mL Peter Results last 24 hrs: Microbiology 06/19/16 15:34 Aerobic Blood Culture - Preliminary Blood - Venous NO GROWTH AFTER 2 DAYS Anaerobic Blood Culture - Preliminary NO GROWTH AFTER 2 DAYS Med Orders - Current: Current Medications Acetaminophen (Tylenol) 650 mg RECTAL Q6H PRN PRN Reason: Fever Last Admin: 06/19/16 15:07 Dose: 650 mg Baclofen (Lioresal) 15 mg PO TID [facility] Last Admin: 06/22/16 11:14 Dose: 15 mg Dextrose/Water (Dextrose 50% In Water) 50 ml IVPUSH ASDIRECTED PRN PRN Reason: Hypoglycemia Enoxaparin Sodium (Lovenox) 40 mg SUBCUT DAILY [facility] Fluoxetine HCl (Prozac) 10 mg PO DAILY [facility] Last Admin: 06/22/16 11:14 Dose: 10 mg Hydralazine HCl (Apresoline) 20 mg IVPUSH Q8H PRN PRN Reason: Hypertension Vancomycin HCl 1 gm/ Sodium (Chloride) 250 mls @ 167 mls/hr IV Q12H [facility] Last Admin: 06/22/16 11:32 Dose: 167 mls/hr Sodium Chloride (Normal Saline) 500 mls @ 999 mls/min IV .BOLUS [facility] Last Admin: 06/18/16 16:45 Dose: 999 mls/min Piperacillin Sod/Tazobactam (Sod 4.5 gm/ Sodium Chloride) 100 mls @ 25 mls/hr IV Q8H [facility] Last Admin: 06/22/16 04:29 Dose: 25 mls/hr Potassium Chloride/Dextrose/Sod Cl (D5 1/2 Ns W/ 40 Meq/L Kcl) 1,000 mls @ 70 mls/hr IV ASDIRECTED [facility] Last Admin: 06/22/16 06:06 Dose: 70 mls/hr Magnesium Sulfate 2 gm/ Premix 50 mls @ 25 mls/hr IV ONETIME ONE Stop: 06/22/16 12:42 Last Admin: 06/22/16 11:16 Dose: 25 mls/hr Insulin Aspart (Novolog) 0 unit SUBCUT QIDACANDBED [facility] PRN Reason: Protocol Last Admin: 06/22/16 11:13 Dose: Not Given Levetiracetam (Keppra) 1,000 mg PO BID [facility] Last Admin: 06/22/16 11:14 Dose: 1,000 mg Lorazepam (Ativan) 1 mg IVPUSH Q4H PRN PRN Reason: Seizures Last Admin: 06/22/16 03:34 Dose: 1 mg Magnesium Oxide (Magnesium Oxide) 400 mg PO QPM [facility] Last Admin: 06/21/16 17:06 Dose: 400 mg Metoprolol Tartrate (Lopressor) 2.5 mg IVPUSH Q4H PRN PRN Reason: heart rate Last Admin: 06/18/16 01:39 Dose: 2.5 mg Senna/Docusate Sodium (Senna Plus) 2 tab PO BID [facility] Last Admin: 06/22/16 11:13 Dose: 2 tab Sodium Chloride (Saline Flush) 10 ml FLUSH ASDIRECTED PRN PRN Reason: Keep Vein Open Last Admin: 06/16/16 20:18 Dose: 10 ml Tizanidine HCl (Zanaflex) 1 mg PO TID [facility] Last Admin: 06/22/16 11:14 Dose: 1 mg Vancomycin HCl (Pharmacy To Dose - Vancomycin) 0 dose .XX ASDIRECTED PRN PRN Reason: RX DOSE Discontinued Medications Albuterol (Proventil Neb Soln) 0.63 mg NEB ONETIME ONE Stop: 06/19/16 17:53 Last Admin: 06/19/16 18:02 Dose: Not Given Albuterol (Proventil Neb Soln) 2.5 mg NEB ONETIME ONE Stop: 06/19/16 17:53 Last Admin: 06/19/16 18:01 Dose: Not Given Albuterol (Proventil Neb Soln) Confirm Administered Dose 2.5 mg .ROUTE .STK-MED ONE Stop: 06/19/16 17:54 Last Admin: 06/19/16 17:58 Dose: 2.5 mg Albuterol (Proventil Neb Soln) 0.63 mg NEB QIDRT [facility] Albuterol (Proventil Neb Soln) 2.5 mg NEB QIDRT [facility] Last Admin: 06/21/16 06:15 Dose: Not Given Baclofen (Lioresal) 30 mg PO TID [facility] Last Admin: 06/18/16 15:29 Dose: 30 mg Baclofen (Lioresal) 5 mg PO TID [facility] Last Admin: 06/19/16 07:59 Dose: 5 mg Baclofen (Lioresal) 10 mg PO TID [facility] Last Admin: 06/19/16 19:13 Dose: Not Given Baclofen (Lioresal) 5 mg PO ONETIME ONE Stop: 06/19/16 09:38 Last Admin: 06/19/16 10:20 Dose: 5 mg Baclofen (Lioresal) 5 mg PO TID [facility] Baclofen (Lioresal) 5 mg PO TID [facility] Last Admin: 06/20/16 08:08 Dose: 5 mg Baclofen (Lioresal) 5 mg PO BID@1700,2300 [facility] Stop: 06/19/16 23:01 Last Admin: 06/19/16 19:13 Dose: Not Given Baclofen (Lioresal) 5 mg PO BID@1700,2300 [facility] Stop: 06/19/16 23:01 Last Admin: 06/19/16 23:25 Dose: 5 mg Baclofen (Lioresal) 5 mg PO ONETIME ONE Stop: 06/19/16 17:17 Last Admin: 06/19/16 17:26 Dose: 5 mg Baclofen (Lioresal) 10 mg PO TID [facility] Last Admin: 06/20/16 14:32 Dose: 10 mg Bisacodyl (Dulcolax) 10 mg RECTAL ONETIME ONE Stop: 06/19/16 08:43 Last Admin: 06/19/16 09:03 Dose: 10 mg Diphtheria/Tetanus/Acell Pertussis (Boostrix) 0.5 ml IM .ONCE ONE Stop: 06/18/16 11:52 Last Admin: 06/18/16 12:24 Dose: Not Given Enoxaparin Sodium (Lovenox) 40 mg SUBCUT DAILY [facility] Last Admin: 06/21/16 08:09 Dose: 40 mg Fentanyl (Sublimaze) Confirm Administered Dose 100 mcg .ROUTE .STK-MED ONE Stop: 06/22/16 07:14 Sodium Chloride (Normal Saline) 1,000 mls @ 999 mls/hr IV ONETIME ONE Stop: 06/16/16 20:50 Last Infusion: 06/16/16 22:13 Dose: Infused Ceftriaxone Sodium 1 gm/ (Sodium Chloride) 100 mls @ 200 mls/hr IV ONETIME ONE Stop: 06/16/16 22:03 Last Admin: 06/16/16 22:13 Dose: 200 mls/hr Sodium Chloride (Normal Saline) 1,000 mls @ 125 mls/hr IV ONETIME ONE Stop: 06/17/16 05:56 Last Admin: 06/16/16 22:13 Dose: 125 mls/hr Levofloxacin/Dextrose 750 mg/ (Premix) 150 mls @ 100 mls/hr IV Q24H [facility] Last Admin: 06/18/16 18:47 Dose: Not Given Potassium Chloride/Dextrose/Sod Cl (D5 1/2 Ns W/ 20 Meq/L Kcl) 1,000 mls @ 70 mls/hr IV ASDIRECTED [facility] Last Admin: 06/20/16 07:10 Dose: 70 mls/hr Levetiracetam 1,000 mg/ Sodium (Chloride) 110 mls @ 400 mls/hr IV ONETIME ONE Stop: 06/17/16 15:38 Last Admin: 06/17/16 16:07 Dose: 400 mls/hr Levetiracetam 1,000 mg/ Sodium (Chloride) 110 mls @ 400 mls/hr IV Q12H [facility] Last Admin: 06/18/16 12:26 Dose: Not Given Vancomycin HCl 1 gm/ Sodium (Chloride) 250 mls @ 250 mls/hr IV ONETIME ONE Stop: 06/18/16 00:03 Last Admin: 06/17/16 23:18 Dose: 250 mls/hr Magnesium Sulfate 2 gm/ Premix 50 mls @ 25 mls/hr IV ONETIME ONE Stop: 06/18/16 13:06 Last Admin: 06/18/16 12:30 Dose: 25 mls/hr Piperacillin Sod/Tazobactam (Sod 4.5 gm/ Sodium Chloride) 100 mls @ 200 mls/hr IV ONETIME ONE Stop: 06/19/16 13:29 Last Admin: 06/19/16 13:47 Dose: 200 mls/hr Magnesium Sulfate 2 gm/ Premix 50 mls @ 25 mls/hr IV ONETIME ONE Stop: 06/19/16 19:32 Last Admin: 06/19/16 18:08 Dose: 25 mls/hr Potassium Chloride 20 meq/Potassium Chloride/Dextrose/Sod Cl 1,010 mls @ 70 mls /hr IV ASDIRECTED [facility] Potassium Chloride/Dextrose/Sod Cl (D5 1/2 Ns W/ 40 Meq/L Kcl) 1,000 mls @ 69.307 mls/hr IV ASDIRECTED [facility] Last Admin: 06/20/16 11:06 Dose: 69.307 mls/hr Magnesium Sulfate 2 gm/ Premix 50 mls @ 25 mls/hr IV ONETIME ONE Stop: 06/21/16 11:33 Last Admin: 06/21/16 10:02 Dose: 25 mls/hr Lidocaine HCl (Xylocaine-Mpf 1%) Confirm Administered Dose 2 mls @ as directed .ROUTE .STK-MED ONE Stop: 06/22/16 07:19 Lactated Ringer's (Ringers, Lactated) Confirm Administered Dose 1,000 mls @ as directed .ROUTE .STK-MED ONE Stop: 06/22/16 10:53 Levetiracetam (Keppra) 1,000 mg PO BID [facility] Last Admin: 06/17/16 20:27 Dose: Not Given Lorazepam (Ativan) 1 mg IVPUSH ONETIME ONE Stop: 06/17/16 15:31 Last Admin: 06/17/16 16:03 Dose: 1 mg Metoprolol Tartrate (Lopressor) 2.5 mg IVPUSH Q6H PRN PRN Reason: heart rate Last Admin: 06/17/16 21:28 Dose: 2.5 mg Midazolam HCl (Versed 1 Mg/Ml) Confirm Administered Dose 2 mg .ROUTE .STK-MED ONE Stop: 06/22/16 07:14 Potassium Chloride (Potassium Chloride) 40 meq PO ONETIME ONE Stop: 06/18/16 11:08 Last Admin: 06/18/16 12:33 Dose: 40 meq Propofol (Diprivan 20 Ml) Confirm Administered Dose 200 mg .ROUTE .STK-MED ONE Stop: 06/22/16 07:14 Tizanidine HCl (Zanaflex) 2 mg PO TID [facility] Last Admin: 06/19/16 19:13 Dose: Not Given Tizanidine HCl (Zanaflex) 2 mg PO ONETIME STA Stop: 06/19/16 09:38 Last Admin: 06/19/16 10:20 Dose: 2 mg Tizanidine HCl (Zanaflex) 1 mg PO BID@1700,2300 [facility] Stop: 06/19/16 23:01 Last Admin: 06/19/16 23:24 Dose: 1 mg - Exam Quality Assessment: supplemental oxygen, DVT prophylaxis General: sedated (arousable) HEENT: Pupils equal, Pupils reactive, EOMI Neck: supple, no JVD Lungs: Normal respiratory effort Cardiovascular: Regular Rate, Regular Rhythm Abdomen: bowel sounds present, soft, other (PEG tube) (Female) Exam: Deferred Back Exam: normal inspection Extremities: normal pulses Skin: warm Neurological: no new focal deficit Psy/Mental Status: other (see above) - Problem List Review Problem List Initiated/Reviewed/Updated: Yes - My Orders Last 24 Hours: My Active Orders 06/22/16 10:43 Magnesium Sulfate/Water [Magnesium Sulfate 2 GM in Water 50 ML] 2 gm Premix Bag 1 bag IV ONETIME 06/23/16 05:00 BMP [BASIC METABOLIC PANEL,BMP] [CHEM] DAILY CBC WITH AUTO DIFF [HEME] DAILY MAGNESIUM [CHEM] DAILY 06/23/16 09:00 Enoxaparin [Lovenox] 40 mg SUBCUT DAILY - Plan Plan:: Impression: AUTI, on 2 IV ATBs AMS, resolved Risk of aspiration; pulmonary toilet Puree diet as ordered; patient is not drinking enough fluids; Drowsiness after Zanaflex and Baclofen yesterday, with increase spasms off usual regimen. Consent given by patient for PEG tube yesterday. Plan: MS vargas, changed yesterday. IV ATBs, will stop PEG tube placed today, will start free water and determine protein needs when not taking enough orally. Adjust meds to avoid over sedation. Seems to tolerate baclofen 15 mg TID, zanaflex 1 mg TID, will follow; advance as tolerated. Await Keppra level Hydrate as needed IVF, will use PEG tube on 06/23/16. BP/HR control, address cause of elevation DVT/GI prophylaxis Consult PT/OT/SW LOS>96 hours.
--- NOTE | 2016-06-22 16:06 | PCM.OPNOTE ---
- General Post-Op/Procedure Note Date of Surgery/Procedure: 06/22/16 Operative Procedure(s): EGD with percutaneous endoscopic gastrostomy tube placement. Pre Op Diagnosis: Multiple sclerosis and dysphagia Post-Op Diagnosis: Same Anesthesia Technique: Local, MAC Primary Surgeon: Negrita Chambers Anesthesia Provider: Caridad Campbell Pathology: None Fluid Replacement, Intraop: 400 (mL crystalloid ) EBL in mLs: 2 Drain/Tube Comments:: PEG tube secured at 5.5 cm at the flange placed to gravity drainage Complications: None Condition: Good Free Text/Narrative:: INDICATION FOR PROCEDURE: The patient is a 55-year-old woman who was referred to me by Dr. Kailey Winston for PEG tube placement for dysphagia related to her MS. EGD had been discussed with the patient and risks of the associated procedure. She had provided verbal consent as she was unable to physically sign her name. The patient found the risks acceptable and agreed to proceed. DESCRIPTION OF PROCEDURE: The patient was taken to the operating room and placed in a supine position. After induction of adequate sedation, a bite block was placed. A standard Olympus gastroscope was inserted into the oropharynx and guided down the esophagus without difficulty. There was no evidence of stricture or esophageal ulcerations. The scope was advanced into the stomach, and there were no obvious abnormalities. The scope was passed into the proximal jejunum and the duodenum which were unremarkable. There were no petechiae or ulcerations. The proximal jejunum was grossly normal in appearance. The scope was retroflexed, and there appeared to be a medium sized hiatal hernia, however I was not able to obtain good photographic documentation of this. Attention was then turned to the PEG tube placement. Direct pressure over the abdomen, which had been previously prepped with chlorhexidine and draped, was easily visible on the insufflated stomach wall. Local anesthetic was injected and a small skin incision was made. The introducer needle was placed into the stomach under direct visualization the guidewire was threaded through the introducer needle. The snare was then placed down the gastroscope and the guidewire was grasped. The gastroscope was withdrawn along with the snare and guidewire. The guidewire and the PEG tube were connected. The PEG tube was then pulled through the patient's mouth. The PEG tube was then pulled flush with the abdominal wall. The flange was then placed over the PEG tube and secured at 5.5 cm. The PEG tube was secured with 2-0 Prolene interrupted sutures through the flange. The clamp was applied and the PEG tube was trimmed. The cap was placed on the PEG tube. The PEG tube was placed to dependent drainage in a urometer bag. Folded 4 x 4's were placed as a drain sponge over the flange and secured with paper tape. The gastroscope was reinserted, the PEG tube flange was clearly seen along the greater curvature. There is no evidence of bleeding. The scope was withdrawn through the remainder of the esophagus and no further abnormalities were noted. The posterior oropharynx was grossly normal in appearance. The scope was then fully withdrawn. The patient was awakened from sedation and transferred to the recovery room in stable condition having tolerated the procedure well. POSTOPERATIVE PLAN: I discussed with the hospitalist team my intraoperative findings and postoperative recommendations. The PEG tube is to be left to drainage for the next 24 hours. The patient is to be nothing by mouth except for medications during this time. Tomorrow morning the PEG tube may be used for fluids, feeds, or medications as desired. The patient may follow-up with me in approximately 6 weeks for Tristian tube sizing and tube exchange. The sutures may be removed from the flange in 2 weeks at her skilled nursing.
--- NOTE | 2016-06-22 17:18 | PCM.CONSN ---
- General Info Date of Service: 06/22/16 - Review of Systems Systems Review Comment:: Patient with no issues overnight. No questions regarding PEG tube placement this morning. - Patient Data Vitals - most recent: Last Vital Signs Temp 98.1 F 06/22/16 12:43 Pulse 91 06/22/16 12:43 Resp 18 06/22/16 12:43 BP 106/53 L 06/22/16 12:43 Pulse Ox 94 L 06/22/16 12:43 Weight - most recent: 162 lb 0.001 oz I&O - last 24 hours: Intake & Output 06/22/16 06/22/16 06/22/16 06:59 14:59 22:59 Intake Total 1108 400 Balance 1108 400 Lab Results last 24 hrs: Laboratory Results - last 24 hr 06/17/16 06/20/16 06/20/16 Range/Units 06:26 11:12 17:10 WBC (3.98-10.04) K/mm3 RBC (3.98-5.22) M/mm3 Hgb (11.2-15.7) gm/L Hct (34.1-44.9) % MCV (79.4-94.8) fl MCH (25.6-32.2) pg MCHC (32.2-35.5) g/dl RDW Std Deviation (36.4-46.3) fL Plt Count (182-369) K/mm3 MPV (9.4-12.3) fl Neut % (Auto) (34.0-71.1) % Lymph % (Auto) (19.3-51.7) % [place] % (Auto) (4.7-12.5) % Eos % (Auto) (0.7-5.8) Baso % (Auto) (0.1-1.2) % Neut # (Auto) (1.56-6.13) K/mm3 Lymph # (Auto) (1.18-3.74) K/mm3 [place] # (Auto) (0.24-0.36) K/mm3 Eos # (Auto) (0.04-0.36) K/mm3 Baso # (Auto) (0.01-0.08) K/mm3 Manual Slide Review Sodium (136-145) mEq/L Potassium (3.5-5.1) mEq/L Chloride (98-107) mEq/L Carbon Dioxide (21-32) mEq/L Anion Gap (5-15) BUN (7-18) mg/dL Creatinine (0.55-1.02) mg/dL Est Cr Clr Drug Dosing mL/min Estimated GFR (MDRD) (>60) mL/min BUN/Creatinine Ratio (14-18) Glucose (74-106) mg/dL POC Glucose 124 H 123 H (70-105) mg/dL Calcium (8.5-10.1) mg/dL Magnesium (1.8-2.4) mg/dl Levetiracetam 17 (5-30) ug/mL 06/21/16 06/22/16 06/22/16 Range/Units 21:10 06:10 06:16 WBC 9.66 (3.98-10.04) K/mm3 RBC 3.91 L (3.98-5.22) M/mm3 Hgb 11.0 L (11.2-15.7) gm/L Hct 34.3 (34.1-44.9) % MCV 87.7 (79.4-94.8) fl MCH 28.1 (25.6-32.2) pg MCHC 32.1 L (32.2-35.5) g/dl RDW Std Deviation 54.1 H (36.4-46.3) fL Plt Count 418 H (182-369) K/mm3 MPV 9.0 L (9.4-12.3) fl Neut % (Auto) 56.1 (34.0-71.1) % Lymph % (Auto) 30.4 (19.3-51.7) % [place] % (Auto) 9.4 (4.7-12.5) % Eos % (Auto) 2.5 (0.7-5.8) Baso % (Auto) 1.3 H (0.1-1.2) % Neut # (Auto) 5.41 (1.56-6.13) K/mm3 Lymph # (Auto) 2.94 (1.18-3.74) K/mm3 [place] # (Auto) 0.91 H (0.24-0.36) K/mm3 Eos # (Auto) 0.24 (0.04-0.36) K/mm3 Baso # (Auto) 0.13 H (0.01-0.08) K/mm3 Manual Slide Review Normal smear Sodium (136-145) mEq/L Potassium (3.5-5.1) mEq/L Chloride (98-107) mEq/L Carbon Dioxide (21-32) mEq/L Anion Gap (5-15) BUN (7-18) mg/dL Creatinine (0.55-1.02) mg/dL Est Cr Clr Drug Dosing mL/min Estimated GFR (MDRD) (>60) mL/min BUN/Creatinine Ratio (14-18) Glucose (74-106) mg/dL POC Glucose 117 H 102 (70-105) mg/dL Calcium (8.5-10.1) mg/dL Magnesium (1.8-2.4) mg/dl Levetiracetam (5-30) ug/mL 06/22/16 06/22/16 06/22/16 Range/Units 06:16 11:12 16:30 WBC (3.98-10.04) K/mm3 RBC (3.98-5.22) M/mm3 Hgb (11.2-15.7) gm/L Hct (34.1-44.9) % MCV (79.4-94.8) fl MCH (25.6-32.2) pg MCHC (32.2-35.5) g/dl RDW Std Deviation (36.4-46.3) fL Plt Count (182-369) K/mm3 MPV (9.4-12.3) fl Neut % (Auto) (34.0-71.1) % Lymph % (Auto) (19.3-51.7) % [place] % (Auto) (4.7-12.5) % Eos % (Auto) (0.7-5.8) Baso % (Auto) (0.1-1.2) % Neut # (Auto) (1.56-6.13) K/mm3 Lymph # (Auto) (1.18-3.74) K/mm3 [place] # (Auto) (0.24-0.36) K/mm3 Eos # (Auto) (0.04-0.36) K/mm3 Baso # (Auto) (0.01-0.08) K/mm3 Manual Slide Review Sodium 140 (136-145) mEq/L Potassium 4.0 (3.5-5.1) mEq/L Chloride 104 (98-107) mEq/L Carbon Dioxide 26 (21-32) mEq/L Anion Gap 14.0 (5-15) BUN 3 L (7-18) mg/dL Creatinine 0.8 (0.55-1.02) mg/dL Est Cr Clr Drug Dosing 76.55 mL/min Estimated GFR (MDRD) > 60 (>60) mL/min BUN/Creatinine Ratio 3.8 L (14-18) Glucose 105 (74-106) mg/dL POC Glucose 92 89 (70-105) mg/dL Calcium 9.9 (8.5-10.1) mg/dL Magnesium 1.7 L (1.8-2.4) mg/dl Levetiracetam (5-30) ug/mL Peter Results last 24 hrs: Microbiology 06/19/16 15:34 Aerobic Blood Culture - Preliminary Blood - Venous NO GROWTH AFTER 3 DAYS Anaerobic Blood Culture - Preliminary NO GROWTH AFTER 3 DAYS Med Orders - Current: Current Medications Acetaminophen (Tylenol) 650 mg RECTAL Q6H PRN PRN Reason: Fever Last Admin: 06/19/16 15:07 Dose: 650 mg Baclofen (Lioresal) 15 mg PO TID [facility] Last Admin: 06/22/16 15:18 Dose: 15 mg Dextrose/Water (Dextrose 50% In Water) 50 ml IVPUSH ASDIRECTED PRN PRN Reason: Hypoglycemia Enoxaparin Sodium (Lovenox) 40 mg SUBCUT DAILY [facility] Fluoxetine HCl (Prozac) 10 mg PO DAILY [facility] Last Admin: 06/22/16 11:14 Dose: 10 mg Hydralazine HCl (Apresoline) 20 mg IVPUSH Q8H PRN PRN Reason: Hypertension Vancomycin HCl 1 gm/ Sodium (Chloride) 250 mls @ 167 mls/hr IV Q12H [facility] Last Admin: 06/22/16 11:32 Dose: 167 mls/hr Sodium Chloride (Normal Saline) 500 mls @ 999 mls/min IV .BOLUS [facility] Last Admin: 06/18/16 16:45 Dose: 999 mls/min Piperacillin Sod/Tazobactam (Sod 4.5 gm/ Sodium Chloride) 100 mls @ 25 mls/hr IV Q8H [facility] Last Admin: 06/22/16 13:11 Dose: 25 mls/hr Potassium Chloride/Dextrose/Sod Cl (D5 1/2 Ns W/ 40 Meq/L Kcl) 1,000 mls @ 70 mls/hr IV ASDIRECTED [facility] Last Admin: 06/22/16 06:06 Dose: 70 mls/hr Insulin Aspart (Novolog) 0 unit SUBCUT QIDACANDBED [facility] PRN Reason: Protocol Last Admin: 06/22/16 16:33 Dose: Not Given Levetiracetam (Keppra) 1,000 mg PO BID [facility] Last Admin: 06/22/16 11:14 Dose: 1,000 mg Lorazepam (Ativan) 1 mg IVPUSH Q4H PRN PRN Reason: Seizures Last Admin: 06/22/16 03:34 Dose: 1 mg Magnesium Oxide (Magnesium Oxide) 400 mg PO QPM [facility] Last Admin: 06/21/16 17:06 Dose: 400 mg Metoprolol Tartrate (Lopressor) 2.5 mg IVPUSH Q4H PRN PRN Reason: heart rate Last Admin: 06/18/16 01:39 Dose: 2.5 mg Senna/Docusate Sodium (Senna Plus) 2 tab PO BID [facility] Last Admin: 06/22/16 11:13 Dose: 2 tab Sodium Chloride (Saline Flush) 10 ml FLUSH ASDIRECTED PRN PRN Reason: Keep Vein Open Last Admin: 06/16/16 20:18 Dose: 10 ml Tizanidine HCl (Zanaflex) 1 mg PO TID [facility] Last Admin: 06/22/16 15:19 Dose: 1 mg Vancomycin HCl (Pharmacy To Dose - Vancomycin) 0 dose .XX ASDIRECTED PRN PRN Reason: RX DOSE Discontinued Medications Albuterol (Proventil Neb Soln) 0.63 mg NEB ONETIME ONE Stop: 06/19/16 17:53 Last Admin: 06/19/16 18:02 Dose: Not Given Albuterol (Proventil Neb Soln) 2.5 mg NEB ONETIME ONE Stop: 06/19/16 17:53 Last Admin: 06/19/16 18:01 Dose: Not Given Albuterol (Proventil Neb Soln) Confirm Administered Dose 2.5 mg .ROUTE .STK-MED ONE Stop: 06/19/16 17:54 Last Admin: 06/19/16 17:58 Dose: 2.5 mg Albuterol (Proventil Neb Soln) 0.63 mg NEB QIDRT [facility] Albuterol (Proventil Neb Soln) 2.5 mg NEB QIDRT [facility] Last Admin: 06/21/16 06:15 Dose: Not Given Baclofen (Lioresal) 30 mg PO TID [facility] Last Admin: 06/18/16 15:29 Dose: 30 mg Baclofen (Lioresal) 5 mg PO TID [facility] Last Admin: 06/19/16 07:59 Dose: 5 mg Baclofen (Lioresal) 10 mg PO TID [facility] Last Admin: 06/19/16 19:13 Dose: Not Given Baclofen (Lioresal) 5 mg PO ONETIME ONE Stop: 06/19/16 09:38 Last Admin: 06/19/16 10:20 Dose: 5 mg Baclofen (Lioresal) 5 mg PO TID [facility] Baclofen (Lioresal) 5 mg PO TID [facility] Last Admin: 06/20/16 08:08 Dose: 5 mg Baclofen (Lioresal) 5 mg PO BID@1700,2300 [facility] Stop: 06/19/16 23:01 Last Admin: 06/19/16 19:13 Dose: Not Given Baclofen (Lioresal) 5 mg PO BID@1700,2300 [facility] Stop: 06/19/16 23:01 Last Admin: 06/19/16 23:25 Dose: 5 mg Baclofen (Lioresal) 5 mg PO ONETIME ONE Stop: 06/19/16 17:17 Last Admin: 06/19/16 17:26 Dose: 5 mg Baclofen (Lioresal) 10 mg PO TID [facility] Last Admin: 06/20/16 14:32 Dose: 10 mg Bisacodyl (Dulcolax) 10 mg RECTAL ONETIME ONE Stop: 06/19/16 08:43 Last Admin: 06/19/16 09:03 Dose: 10 mg Diphtheria/Tetanus/Acell Pertussis (Boostrix) 0.5 ml IM .ONCE ONE Stop: 06/18/16 11:52 Last Admin: 06/18/16 12:24 Dose: Not Given Enoxaparin Sodium (Lovenox) 40 mg SUBCUT DAILY [facility] Last Admin: 06/21/16 08:09 Dose: 40 mg Fentanyl (Sublimaze) Confirm Administered Dose 100 mcg .ROUTE .STK-MED ONE Stop: 06/22/16 07:14 Sodium Chloride (Normal Saline) 1,000 mls @ 999 mls/hr IV ONETIME ONE Stop: 06/16/16 20:50 Last Infusion: 06/16/16 22:13 Dose: Infused Ceftriaxone Sodium 1 gm/ (Sodium Chloride) 100 mls @ 200 mls/hr IV ONETIME ONE Stop: 06/16/16 22:03 Last Admin: 06/16/16 22:13 Dose: 200 mls/hr Sodium Chloride (Normal Saline) 1,000 mls @ 125 mls/hr IV ONETIME ONE Stop: 06/17/16 05:56 Last Admin: 06/16/16 22:13 Dose: 125 mls/hr Levofloxacin/Dextrose 750 mg/ (Premix) 150 mls @ 100 mls/hr IV Q24H [facility] Last Admin: 06/18/16 18:47 Dose: Not Given Potassium Chloride/Dextrose/Sod Cl (D5 1/2 Ns W/ 20 Meq/L Kcl) 1,000 mls @ 70 mls/hr IV ASDIRECTED [facility] Last Admin: 06/20/16 07:10 Dose: 70 mls/hr Levetiracetam 1,000 mg/ Sodium (Chloride) 110 mls @ 400 mls/hr IV ONETIME ONE Stop: 06/17/16 15:38 Last Admin: 06/17/16 16:07 Dose: 400 mls/hr Levetiracetam 1,000 mg/ Sodium (Chloride) 110 mls @ 400 mls/hr IV Q12H [facility] Last Admin: 06/18/16 12:26 Dose: Not Given Vancomycin HCl 1 gm/ Sodium (Chloride) 250 mls @ 250 mls/hr IV ONETIME ONE Stop: 06/18/16 00:03 Last Admin: 06/17/16 23:18 Dose: 250 mls/hr Magnesium Sulfate 2 gm/ Premix 50 mls @ 25 mls/hr IV ONETIME ONE Stop: 06/18/16 13:06 Last Admin: 06/18/16 12:30 Dose: 25 mls/hr Piperacillin Sod/Tazobactam (Sod 4.5 gm/ Sodium Chloride) 100 mls @ 200 mls/hr IV ONETIME ONE Stop: 06/19/16 13:29 Last Admin: 06/19/16 13:47 Dose: 200 mls/hr Magnesium Sulfate 2 gm/ Premix 50 mls @ 25 mls/hr IV ONETIME ONE Stop: 06/19/16 19:32 Last Admin: 06/19/16 18:08 Dose: 25 mls/hr Potassium Chloride 20 meq/Potassium Chloride/Dextrose/Sod Cl 1,010 mls @ 70 mls /hr IV ASDIRECTED [facility] Potassium Chloride/Dextrose/Sod Cl (D5 1/2 Ns W/ 40 Meq/L Kcl) 1,000 mls @ 69.307 mls/hr IV ASDIRECTED [facility] Last Admin: 06/20/16 11:06 Dose: 69.307 mls/hr Magnesium Sulfate 2 gm/ Premix 50 mls @ 25 mls/hr IV ONETIME ONE Stop: 06/21/16 11:33 Last Admin: 06/21/16 10:02 Dose: 25 mls/hr Lidocaine HCl (Xylocaine-Mpf 1%) Confirm Administered Dose 2 mls @ as directed .ROUTE .STK-MED ONE Stop: 06/22/16 07:19 Magnesium Sulfate 2 gm/ Premix 50 mls @ 25 mls/hr IV ONETIME ONE Stop: 06/22/16 12:42 Last Admin: 06/22/16 11:16 Dose: 25 mls/hr Lactated Ringer's (Ringers, Lactated) Confirm Administered Dose 1,000 mls @ as directed .ROUTE .STK-MED ONE Stop: 06/22/16 10:53 Levetiracetam (Keppra) 1,000 mg PO BID [facility] Last Admin: 06/17/16 20:27 Dose: Not Given Lorazepam (Ativan) 1 mg IVPUSH ONETIME ONE Stop: 06/17/16 15:31 Last Admin: 06/17/16 16:03 Dose: 1 mg Metoprolol Tartrate (Lopressor) 2.5 mg IVPUSH Q6H PRN PRN Reason: heart rate Last Admin: 06/17/16 21:28 Dose: 2.5 mg Midazolam HCl (Versed 1 Mg/Ml) Confirm Administered Dose 2 mg .ROUTE .STK-MED ONE Stop: 06/22/16 07:14 Potassium Chloride (Potassium Chloride) 40 meq PO ONETIME ONE Stop: 06/18/16 11:08 Last Admin: 06/18/16 12:33 Dose: 40 meq Propofol (Diprivan 20 Ml) Confirm Administered Dose 200 mg .ROUTE .STK-MED ONE Stop: 06/22/16 07:14 Tizanidine HCl (Zanaflex) 2 mg PO TID [facility] Last Admin: 06/19/16 19:13 Dose: Not Given Tizanidine HCl (Zanaflex) 2 mg PO ONETIME STA Stop: 06/19/16 09:38 Last Admin: 06/19/16 10:20 Dose: 2 mg Tizanidine HCl (Zanaflex) 1 mg PO BID@1700,2300 [facility] Stop: 06/19/16 23:01 Last Admin: 06/19/16 23:24 Dose: 1 mg - Exam General: alert, cooperative, no acute distress Lungs: Clear to auscultation, Normal respiratory effort Cardiovascular: Regular Rate, Regular Rhythm Abdomen: soft, no tenderness, no distension Skin: warm, dry, intact Consult PN Assessment/Plan Procedures: Procedures ASSAY OF BLOOD OSMOLALITY (08/05/14) ASSAY OF CK (CPK) (04/06/14) ASSAY OF LACTIC ACID (07/21/15) ASSAY OF MAGNESIUM (08/05/14) ASSAY OF NATRIURETIC PEPTIDE (03/12/14) ASSAY OF PHOSPHORUS (08/05/14) ASSAY OF TROPONIN QUANT (08/05/14) BLOOD CULTURE FOR BACTERIA (07/21/15) BLOOD GASES ANY COMBINATION (04/06/14) C-REACTIVE PROTEIN (07/21/15) CHEST X-RAY 1 VIEW FRONTAL (07/21/15) COMPLETE CBC W/AUTO DIFF WBC (07/21/15) COMPREHEN METABOLIC PANEL (07/21/15) CREATINE MB FRACTION (08/05/14) CT ANGIOGRAPHY CHEST (03/12/14) CT HEAD/BRAIN W/O DYE (04/06/14) CULTURE AEROBIC IDENTIFY (06/30/14) VIN SUBQ TISSUE 20 SQ CM/< (03/06/14) ELECTROCARDIOGRAM TRACING (04/06/14) EMERGENCY DEPT VISIT (07/21/15) EMERGENCY DEPT VISIT (08/05/14) EMERGENCY DEPT VISIT (06/30/14) EMERGENCY DEPT VISIT (12/18/14) FIBRIN DEGRADATION QUANT (03/12/14) HYDRATE IV INFUSION ADD-ON (07/21/15) HYDRATION IV INFUSION INIT (03/12/14) INFLUENZA A/B AG IA (03/12/14) INFLUENZA ASSAY W/OPTIC (06/30/14) INSERT BLADDER CATHETER (03/12/14) INSERT TEMP BLADDER CATH (06/30/14) METABOLIC PANEL TOTAL CA (06/30/14) MICROBE SUSCEPTIBLE DIFFUSE (07/21/15) MICROBE SUSCEPTIBLE DISK (07/21/15) MICROBE SUSCEPTIBLE PETER (07/21/15) MR-STAPH DNA AMP PROBE (03/06/14) OT EVALUATION (07/21/15) PROTHROMBIN TIME (03/12/14) PT EVALUATION (07/21/15) RBC SED RATE AUTOMATED (08/05/14) ROUTINE VENIPUNCTURE (07/21/15) THER/DIAG CONCURRENT INF (04/06/14) THER/PROPH/DIAG IV INF ADDON (07/21/15) THER/PROPH/DIAG IV INF INIT (07/21/15) TX/PRO/DX INJ NEW DRUG ADDON (06/30/14) URINALYSIS AUTO W/SCOPE (07/21/15) URINE BACTERIA CULTURE (07/21/15) URINE CULTURE/COLONY COUNT (09/08/15) WITHDRAWAL OF ARTERIAL BLOOD (04/06/14) X-RAY EXAM OF ABDOMEN (07/21/15) (1) Dysphagia SNOMED Code(s): 44998757, 490213631 Code(s): R13.10 - DYSPHAGIA, UNSPECIFIED Current Visit: Yes (2) Multiple sclerosis SNOMED Code(s): 16322937 Code(s): G35 - MULTIPLE SCLEROSIS Current Visit: Yes Problem List Initiated/Reviewed/Updated: Yes My Orders last 24 hours: My Active Orders 06/22/16 16:04 Communication Order [RC] ASDIRECTED Plan: 55-year-old woman with MS and dysphagia Proceed with PEG tube placement today as planned. Consent obtained from patient yesterday. Patient was not able to sign so it was listed as a verbal consent.
[2016-06-22] MEDS: Magnesium Oxide 400 MG Tab PO SCH (18:03)
[2016-06-23] MEDS: D5 1/2 NS w/ 40 mEq/L KCl 1,000 ML IV SCH (04:10)
[2016-06-23] MEDS: Piperacillin/Tazobactam 4.5 GM in Sodium Chloride 0.9% 100 ML IV SCH ×2 (04:11→13:38)
[2016-06-23] MEDS: Insulin Aspart 100 Units/ML 3 ML Pen SUBCUT SCH ×2 (06:40→11:48)
[2016-06-23] MEDS ORDERED: Enoxaparin 40 MG/0.4 ML Syringe SUBCUT SCH (09:00)
[2016-06-23] MEDS: Baclofen 10 MG Tab PO SCH (09:16)
[2016-06-23] MEDS: levETIRAcetam 500 MG Tab PO SCH (09:16)
[2016-06-23] MEDS: FLUoxetine 10 MG Cap PO SCH (09:17)
[2016-06-23] MEDS: tiZANidine 4 MG Tab PO SCH (09:17)
[2016-06-23] MEDS ORDERED: Magnesium Sulfate/Water 2 GM in Premix Bag 1 BAG IV ONE (10:17)
--- NOTE | 2016-06-23 11:57 | PCM.PN ---
- General Info Date of Service: 06/23/16 - Patient Data Vitals - most recent: Last Vital Signs Temp 37.0 C 06/23/16 03:05 Pulse 93 06/23/16 03:05 Resp 14 06/23/16 03:05 BP 107/96 H 06/23/16 03:05 Pulse Ox 96 06/23/16 03:05 Weight - most recent: 73.074 kg I&O - last 24 hours: Intake & Output 06/22/16 06/23/16 06/23/16 22:59 06:59 14:59 Intake Total 1494 550 0 Output Total 300 Balance 1194 550 0 Lab Results last 24 hrs: Laboratory Results - last 24 hr 06/22/16 06/22/16 06/23/16 Range/Units 16:30 21:25 06:06 WBC 8.65 (3.98-10.04) K/mm3 RBC 4.08 (3.98-5.22) M/mm3 Hgb 11.4 (11.2-15.7) gm/L Hct 35.4 (34.1-44.9) % MCV 86.8 (79.4-94.8) fl MCH 27.9 (25.6-32.2) pg MCHC 32.2 (32.2-35.5) g/dl RDW Std Deviation 52.6 H (36.4-46.3) fL Plt Count 431 H (182-369) K/mm3 MPV 8.9 L (9.4-12.3) fl Neut % (Auto) 61.2 (34.0-71.1) % Lymph % (Auto) 25.9 (19.3-51.7) % Smith % (Auto) 10.2 (4.7-12.5) % Eos % (Auto) 2.0 (0.7-5.8) Baso % (Auto) 0.2 (0.1-1.2) % Neut # (Auto) 5.30 (1.56-6.13) K/mm3 Lymph # (Auto) 2.24 (1.18-3.74) K/mm3 Smith # (Auto) 0.88 H (0.24-0.36) K/mm3 Eos # (Auto) 0.17 (0.04-0.36) K/mm3 Baso # (Auto) 0.02 (0.01-0.08) K/mm3 Manual Slide Review Normal smear Sodium (136-145) mEq/L Potassium (3.5-5.1) mEq/L Chloride (98-107) mEq/L Carbon Dioxide (21-32) mEq/L Anion Gap (5-15) BUN (7-18) mg/dL Creatinine (0.55-1.02) mg/dL Est Cr Clr Drug Dosing mL/min Estimated GFR (MDRD) (>60) mL/min BUN/Creatinine Ratio (14-18) Glucose (74-106) mg/dL POC Glucose 89 99 (70-105) mg/dL Calcium (8.5-10.1) mg/dL Magnesium (1.8-2.4) mg/dl 06/23/16 06/23/16 06/23/16 Range/Units 06:06 06:09 11:28 WBC (3.98-10.04) K/mm3 RBC (3.98-5.22) M/mm3 Hgb (11.2-15.7) gm/L Hct (34.1-44.9) % MCV (79.4-94.8) fl MCH (25.6-32.2) pg MCHC (32.2-35.5) g/dl RDW Std Deviation (36.4-46.3) fL Plt Count (182-369) K/mm3 MPV (9.4-12.3) fl Neut % (Auto) (34.0-71.1) % Lymph % (Auto) (19.3-51.7) % Smith % (Auto) (4.7-12.5) % Eos % (Auto) (0.7-5.8) Baso % (Auto) (0.1-1.2) % Neut # (Auto) (1.56-6.13) K/mm3 Lymph # (Auto) (1.18-3.74) K/mm3 Smith # (Auto) (0.24-0.36) K/mm3 Eos # (Auto) (0.04-0.36) K/mm3 Baso # (Auto) (0.01-0.08) K/mm3 Manual Slide Review Sodium 138 (136-145) mEq/L Potassium 3.8 (3.5-5.1) mEq/L Chloride 102 (98-107) mEq/L Carbon Dioxide 28 (21-32) mEq/L Anion Gap 11.8 (5-15) BUN 3 L (7-18) mg/dL Creatinine 0.9 (0.55-1.02) mg/dL Est Cr Clr Drug Dosing 68.04 mL/min Estimated GFR (MDRD) > 60 (>60) mL/min BUN/Creatinine Ratio 3.3 L (14-18) Glucose 105 (74-106) mg/dL POC Glucose 93 104 (70-105) mg/dL Calcium 9.7 (8.5-10.1) mg/dL Magnesium 1.8 (1.8-2.4) mg/dl Peter Results last 24 hrs: Microbiology 06/19/16 15:34 Aerobic Blood Culture - Preliminary Blood - Venous NO GROWTH AFTER 3 DAYS Anaerobic Blood Culture - Preliminary NO GROWTH AFTER 3 DAYS Med Orders - Current: Current Medications Acetaminophen (Tylenol) 650 mg RECTAL Q6H PRN PRN Reason: Fever Last Admin: 06/19/16 15:07 Dose: 650 mg Baclofen (Lioresal) 15 mg PO TID [facility] Last Admin: 06/23/16 09:16 Dose: 15 mg Dextrose/Water (Dextrose 50% In Water) 50 ml IVPUSH ASDIRECTED PRN PRN Reason: Hypoglycemia Enoxaparin Sodium (Lovenox) 40 mg SUBCUT DAILY [facility] Last Admin: 06/23/16 09:21 Dose: 40 mg Fluoxetine HCl (Prozac) 10 mg PO DAILY [facility] Last Admin: 06/23/16 09:17 Dose: 10 mg Hydralazine HCl (Apresoline) 20 mg IVPUSH Q8H PRN PRN Reason: Hypertension Vancomycin HCl 1 gm/ Sodium (Chloride) 250 mls @ 167 mls/hr IV Q12H [facility] Last Admin: 06/23/16 11:47 Dose: 167 mls/hr Sodium Chloride (Normal Saline) 500 mls @ 999 mls/min IV .BOLUS [facility] Last Admin: 06/18/16 16:45 Dose: 999 mls/min Piperacillin Sod/Tazobactam (Sod 4.5 gm/ Sodium Chloride) 100 mls @ 25 mls/hr IV Q8H [facility] Last Admin: 06/23/16 04:11 Dose: 25 mls/hr Potassium Chloride/Dextrose/Sod Cl (D5 1/2 Ns W/ 40 Meq/L Kcl) 1,000 mls @ 70 mls/hr IV ASDIRECTED [facility] Last Admin: 06/23/16 04:10 Dose: 70 mls/hr Magnesium Sulfate 2 gm/ Premix 50 mls @ 25 mls/hr IV ONETIME ONE Stop: 06/23/16 12:16 Last Admin: 06/23/16 11:47 Dose: 25 mls/hr Insulin Aspart (Novolog) 0 unit SUBCUT QIDACANDBED [facility] PRN Reason: Protocol Last Admin: 06/23/16 11:48 Dose: Not Given Levetiracetam (Keppra) 1,000 mg PO BID [facility] Last Admin: 06/23/16 09:16 Dose: 1,000 mg Lorazepam (Ativan) 1 mg IVPUSH Q4H PRN PRN Reason: Seizures Last Admin: 06/22/16 03:34 Dose: 1 mg Magnesium Oxide (Magnesium Oxide) 400 mg PO QPM [facility] Last Admin: 06/22/16 18:03 Dose: 400 mg Metoprolol Tartrate (Lopressor) 2.5 mg IVPUSH Q4H PRN PRN Reason: heart rate Last Admin: 06/18/16 01:39 Dose: 2.5 mg Senna/Docusate Sodium (Senna Plus) 2 tab PO BID [facility] Last Admin: 06/23/16 09:16 Dose: 2 tab Sodium Chloride (Saline Flush) 10 ml FLUSH ASDIRECTED PRN PRN Reason: Keep Vein Open Last Admin: 06/16/16 20:18 Dose: 10 ml Tizanidine HCl (Zanaflex) 1 mg PO TID [facility] Last Admin: 06/23/16 09:17 Dose: 1 mg Vancomycin HCl (Pharmacy To Dose - Vancomycin) 0 dose .XX ASDIRECTED PRN PRN Reason: RX DOSE Discontinued Medications Albuterol (Proventil Neb Soln) 0.63 mg NEB ONETIME ONE Stop: 06/19/16 17:53 Last Admin: 06/19/16 18:02 Dose: Not Given Albuterol (Proventil Neb Soln) 2.5 mg NEB ONETIME ONE Stop: 06/19/16 17:53 Last Admin: 06/19/16 18:01 Dose: Not Given Albuterol (Proventil Neb Soln) Confirm Administered Dose 2.5 mg .ROUTE .STK-MED ONE Stop: 06/19/16 17:54 Last Admin: 06/19/16 17:58 Dose: 2.5 mg Albuterol (Proventil Neb Soln) 0.63 mg NEB QIDRT KHAI Albuterol (Proventil Neb Soln) 2.5 mg NEB QIDRT [facility] Last Admin: 06/21/16 06:15 Dose: Not Given Baclofen (Lioresal) 30 mg PO TID [facility] Last Admin: 06/18/16 15:29 Dose: 30 mg Baclofen (Lioresal) 5 mg PO TID [facility] Last Admin: 06/19/16 07:59 Dose: 5 mg Baclofen (Lioresal) 10 mg PO TID [facility] Last Admin: 06/19/16 19:13 Dose: Not Given Baclofen (Lioresal) 5 mg PO ONETIME ONE Stop: 06/19/16 09:38 Last Admin: 06/19/16 10:20 Dose: 5 mg Baclofen (Lioresal) 5 mg PO TID [facility] Baclofen (Lioresal) 5 mg PO TID [facility] Last Admin: 06/20/16 08:08 Dose: 5 mg Baclofen (Lioresal) 5 mg PO BID@1700,2300 [facility] Stop: 06/19/16 23:01 Last Admin: 06/19/16 19:13 Dose: Not Given Baclofen (Lioresal) 5 mg PO BID@1700,2300 [facility] Stop: 06/19/16 23:01 Last Admin: 06/19/16 23:25 Dose: 5 mg Baclofen (Lioresal) 5 mg PO ONETIME ONE Stop: 06/19/16 17:17 Last Admin: 06/19/16 17:26 Dose: 5 mg Baclofen (Lioresal) 10 mg PO TID [facility] Last Admin: 06/20/16 14:32 Dose: 10 mg Bisacodyl (Dulcolax) 10 mg RECTAL ONETIME ONE Stop: 06/19/16 08:43 Last Admin: 06/19/16 09:03 Dose: 10 mg Diphtheria/Tetanus/Acell Pertussis (Boostrix) 0.5 ml IM .ONCE ONE Stop: 06/18/16 11:52 Last Admin: 06/18/16 12:24 Dose: Not Given Enoxaparin Sodium (Lovenox) 40 mg SUBCUT DAILY [facility] Last Admin: 06/21/16 08:09 Dose: 40 mg Fentanyl (Sublimaze) Confirm Administered Dose 100 mcg .ROUTE .STK-MED ONE Stop: 06/22/16 07:14 Sodium Chloride (Normal Saline) 1,000 mls @ 999 mls/hr IV ONETIME ONE Stop: 06/16/16 20:50 Last Infusion: 06/16/16 22:13 Dose: Infused Ceftriaxone Sodium 1 gm/ (Sodium Chloride) 100 mls @ 200 mls/hr IV ONETIME ONE Stop: 06/16/16 22:03 Last Admin: 06/16/16 22:13 Dose: 200 mls/hr Sodium Chloride (Normal Saline) 1,000 mls @ 125 mls/hr IV ONETIME ONE Stop: 06/17/16 05:56 Last Admin: 06/16/16 22:13 Dose: 125 mls/hr Levofloxacin/Dextrose 750 mg/ (Premix) 150 mls @ 100 mls/hr IV Q24H [facility] Last Admin: 06/18/16 18:47 Dose: Not Given Potassium Chloride/Dextrose/Sod Cl (D5 1/2 Ns W/ 20 Meq/L Kcl) 1,000 mls @ 70 mls/hr IV ASDIRECTED [facility] Last Admin: 06/20/16 07:10 Dose: 70 mls/hr Levetiracetam 1,000 mg/ Sodium (Chloride) 110 mls @ 400 mls/hr IV ONETIME ONE Stop: 06/17/16 15:38 Last Admin: 06/17/16 16:07 Dose: 400 mls/hr Levetiracetam 1,000 mg/ Sodium (Chloride) 110 mls @ 400 mls/hr IV Q12H [facility] Last Admin: 06/18/16 12:26 Dose: Not Given Vancomycin HCl 1 gm/ Sodium (Chloride) 250 mls @ 250 mls/hr IV ONETIME ONE Stop: 06/18/16 00:03 Last Admin: 06/17/16 23:18 Dose: 250 mls/hr Magnesium Sulfate 2 gm/ Premix 50 mls @ 25 mls/hr IV ONETIME ONE Stop: 06/18/16 13:06 Last Admin: 06/18/16 12:30 Dose: 25 mls/hr Piperacillin Sod/Tazobactam (Sod 4.5 gm/ Sodium Chloride) 100 mls @ 200 mls/hr IV ONETIME ONE Stop: 06/19/16 13:29 Last Admin: 06/19/16 13:47 Dose: 200 mls/hr Magnesium Sulfate 2 gm/ Premix 50 mls @ 25 mls/hr IV ONETIME ONE Stop: 06/19/16 19:32 Last Admin: 06/19/16 18:08 Dose: 25 mls/hr Potassium Chloride 20 meq/Potassium Chloride/Dextrose/Sod Cl 1,010 mls @ 70 mls /hr IV ASDIRECTED [facility] Potassium Chloride/Dextrose/Sod Cl (D5 1/2 Ns W/ 40 Meq/L Kcl) 1,000 mls @ 69.307 mls/hr IV ASDIRECTED [facility] Last Admin: 06/20/16 11:06 Dose: 69.307 mls/hr Magnesium Sulfate 2 gm/ Premix 50 mls @ 25 mls/hr IV ONETIME ONE Stop: 06/21/16 11:33 Last Admin: 06/21/16 10:02 Dose: 25 mls/hr Lidocaine HCl (Xylocaine-Mpf 1%) Confirm Administered Dose 2 mls @ as directed .ROUTE .STK-MED ONE Stop: 06/22/16 07:19 Magnesium Sulfate 2 gm/ Premix 50 mls @ 25 mls/hr IV ONETIME ONE Stop: 06/22/16 12:42 Last Admin: 06/22/16 11:16 Dose: 25 mls/hr Lactated Ringer's (Ringers, Lactated) Confirm Administered Dose 1,000 mls @ as directed .ROUTE .STK-MED ONE Stop: 06/22/16 10:53 Levetiracetam (Keppra) 1,000 mg PO BID [facility] Last Admin: 06/17/16 20:27 Dose: Not Given Lorazepam (Ativan) 1 mg IVPUSH ONETIME ONE Stop: 06/17/16 15:31 Last Admin: 06/17/16 16:03 Dose: 1 mg Metoprolol Tartrate (Lopressor) 2.5 mg IVPUSH Q6H PRN PRN Reason: heart rate Last Admin: 06/17/16 21:28 Dose: 2.5 mg Midazolam HCl (Versed 1 Mg/Ml) Confirm Administered Dose 2 mg .ROUTE .STK-MED ONE Stop: 06/22/16 07:14 Potassium Chloride (Potassium Chloride) 40 meq PO ONETIME ONE Stop: 06/18/16 11:08 Last Admin: 06/18/16 12:33 Dose: 40 meq Propofol (Diprivan 20 Ml) Confirm Administered Dose 200 mg .ROUTE .STK-MED ONE Stop: 06/22/16 07:14 Tizanidine HCl (Zanaflex) 2 mg PO TID [facility] Last Admin: 06/19/16 19:13 Dose: Not Given Tizanidine HCl (Zanaflex) 2 mg PO ONETIME STA Stop: 06/19/16 09:38 Last Admin: 06/19/16 10:20 Dose: 2 mg Tizanidine HCl (Zanaflex) 1 mg PO BID@1700,2300 [facility] Stop: 06/19/16 23:01 Last Admin: 06/19/16 23:24 Dose: 1 mg - My Orders Last 24 Hours: My Active Orders 06/23/16 09:00 Enoxaparin [Lovenox] 40 mg SUBCUT DAILY 06/23/16 10:17 Magnesium Sulfate/Water [Magnesium Sulfate 2 GM in Water 50 ML] 2 gm Premix Bag 1 bag IV ONETIME - Plan Plan:: Impression: AUTI, on 2 IV ATBs AMS, resolved Risk of aspiration; pulmonary toilet Puree diet as ordered; patient is not drinking enough fluids; Drowsiness after Zanaflex and Baclofen yesterday, with increase spasms off usual regimen. Family meeting, impromptu regarding PEG tube, patient is the decision maker. Has declined today, but will reconsider the option. Plan: MS vargas, changed yesterday. IV ATBs, will stop PEG tube placed today, will start free water and determine protein needs when not taking enough orally. Adjust meds to avoid over sedation. Seems to tolerate baclofen 15 mg TID, zanaflex 1 mg TID, will follow; advance as tolerated. Await Keppra level Hydrate as needed, have reduced rate for now. BP/HR control, address cause of elevation DVT/GI prophylaxis Consult PT/OT/SW LOS>96 hours.
--- NOTE | 2016-06-23 12:51 | PCM.CONSN ---
- General Info Date of Service: 06/23/16 - Review of Systems Systems Review Comment:: No events overnight. Afebrile. - Patient Data Vitals - most recent: Last Vital Signs Temp 98.6 F 06/23/16 03:05 Pulse 93 06/23/16 03:05 Resp 14 06/23/16 03:05 BP 107/96 H 06/23/16 03:05 Pulse Ox 96 06/23/16 03:05 Weight - most recent: 161 lb 1.6 oz I&O - last 24 hours: Intake & Output 06/22/16 06/23/16 06/23/16 22:59 06:59 14:59 Intake Total 1494 550 0 Output Total 300 Balance 1194 550 0 Lab Results last 24 hrs: Laboratory Results - last 24 hr 06/22/16 06/22/16 06/23/16 Range/Units 16:30 21:25 06:06 WBC 8.65 (3.98-10.04) K/mm3 RBC 4.08 (3.98-5.22) M/mm3 Hgb 11.4 (11.2-15.7) gm/L Hct 35.4 (34.1-44.9) % MCV 86.8 (79.4-94.8) fl MCH 27.9 (25.6-32.2) pg MCHC 32.2 (32.2-35.5) g/dl RDW Std Deviation 52.6 H (36.4-46.3) fL Plt Count 431 H (182-369) K/mm3 MPV 8.9 L (9.4-12.3) fl Neut % (Auto) 61.2 (34.0-71.1) % Lymph % (Auto) 25.9 (19.3-51.7) % Chambers % (Auto) 10.2 (4.7-12.5) % Eos % (Auto) 2.0 (0.7-5.8) Baso % (Auto) 0.2 (0.1-1.2) % Neut # (Auto) 5.30 (1.56-6.13) K/mm3 Lymph # (Auto) 2.24 (1.18-3.74) K/mm3 Chambers # (Auto) 0.88 H (0.24-0.36) K/mm3 Eos # (Auto) 0.17 (0.04-0.36) K/mm3 Baso # (Auto) 0.02 (0.01-0.08) K/mm3 Manual Slide Review Normal smear Sodium (136-145) mEq/L Potassium (3.5-5.1) mEq/L Chloride (98-107) mEq/L Carbon Dioxide (21-32) mEq/L Anion Gap (5-15) BUN (7-18) mg/dL Creatinine (0.55-1.02) mg/dL Est Cr Clr Drug Dosing mL/min Estimated GFR (MDRD) (>60) mL/min BUN/Creatinine Ratio (14-18) Glucose (74-106) mg/dL POC Glucose 89 99 (70-105) mg/dL Calcium (8.5-10.1) mg/dL Magnesium (1.8-2.4) mg/dl 06/23/16 06/23/16 06/23/16 Range/Units 06:06 06:09 11:28 WBC (3.98-10.04) K/mm3 RBC (3.98-5.22) M/mm3 Hgb (11.2-15.7) gm/L Hct (34.1-44.9) % MCV (79.4-94.8) fl MCH (25.6-32.2) pg MCHC (32.2-35.5) g/dl RDW Std Deviation (36.4-46.3) fL Plt Count (182-369) K/mm3 MPV (9.4-12.3) fl Neut % (Auto) (34.0-71.1) % Lymph % (Auto) (19.3-51.7) % Chambers % (Auto) (4.7-12.5) % Eos % (Auto) (0.7-5.8) Baso % (Auto) (0.1-1.2) % Neut # (Auto) (1.56-6.13) K/mm3 Lymph # (Auto) (1.18-3.74) K/mm3 Chambers # (Auto) (0.24-0.36) K/mm3 Eos # (Auto) (0.04-0.36) K/mm3 Baso # (Auto) (0.01-0.08) K/mm3 Manual Slide Review Sodium 138 (136-145) mEq/L Potassium 3.8 (3.5-5.1) mEq/L Chloride 102 (98-107) mEq/L Carbon Dioxide 28 (21-32) mEq/L Anion Gap 11.8 (5-15) BUN 3 L (7-18) mg/dL Creatinine 0.9 (0.55-1.02) mg/dL Est Cr Clr Drug Dosing 68.04 mL/min Estimated GFR (MDRD) > 60 (>60) mL/min BUN/Creatinine Ratio 3.3 L (14-18) Glucose 105 (74-106) mg/dL POC Glucose 93 104 (70-105) mg/dL Calcium 9.7 (8.5-10.1) mg/dL Magnesium 1.8 (1.8-2.4) mg/dl Peter Results last 24 hrs: Microbiology 06/19/16 15:34 Aerobic Blood Culture - Preliminary Blood - Venous NO GROWTH AFTER 3 DAYS Anaerobic Blood Culture - Preliminary NO GROWTH AFTER 3 DAYS Med Orders - Current: Current Medications Acetaminophen (Tylenol) 650 mg RECTAL Q6H PRN PRN Reason: Fever Last Admin: 06/19/16 15:07 Dose: 650 mg Baclofen (Lioresal) 15 mg PO TID [facility] Last Admin: 06/23/16 09:16 Dose: 15 mg Dextrose/Water (Dextrose 50% In Water) 50 ml IVPUSH ASDIRECTED PRN PRN Reason: Hypoglycemia Enoxaparin Sodium (Lovenox) 40 mg SUBCUT DAILY [facility] Last Admin: 06/23/16 09:21 Dose: 40 mg Fluoxetine HCl (Prozac) 10 mg PO DAILY [facility] Last Admin: 06/23/16 09:17 Dose: 10 mg Hydralazine HCl (Apresoline) 20 mg IVPUSH Q8H PRN PRN Reason: Hypertension Vancomycin HCl 1 gm/ Sodium (Chloride) 250 mls @ 167 mls/hr IV Q12H [facility] Last Admin: 06/23/16 11:47 Dose: 167 mls/hr Sodium Chloride (Normal Saline) 500 mls @ 999 mls/min IV .BOLUS [facility] Last Admin: 06/18/16 16:45 Dose: 999 mls/min Piperacillin Sod/Tazobactam (Sod 4.5 gm/ Sodium Chloride) 100 mls @ 25 mls/hr IV Q8H [facility] Last Admin: 06/23/16 04:11 Dose: 25 mls/hr Potassium Chloride/Dextrose/Sod Cl (D5 1/2 Ns W/ 40 Meq/L Kcl) 1,000 mls @ 70 mls/hr IV ASDIRECTED [facility] Last Admin: 06/23/16 04:10 Dose: 70 mls/hr Insulin Aspart (Novolog) 0 unit SUBCUT QIDACANDBED [facility] PRN Reason: Protocol Last Admin: 06/23/16 11:48 Dose: Not Given Levetiracetam (Keppra) 1,000 mg PO BID [facility] Last Admin: 06/23/16 09:16 Dose: 1,000 mg Lorazepam (Ativan) 1 mg IVPUSH Q4H PRN PRN Reason: Seizures Last Admin: 06/22/16 03:34 Dose: 1 mg Magnesium Oxide (Magnesium Oxide) 400 mg PO QPM [facility] Last Admin: 06/22/16 18:03 Dose: 400 mg Metoprolol Tartrate (Lopressor) 2.5 mg IVPUSH Q4H PRN PRN Reason: heart rate Last Admin: 06/18/16 01:39 Dose: 2.5 mg Senna/Docusate Sodium (Senna Plus) 2 tab PO BID [facility] Last Admin: 06/23/16 09:16 Dose: 2 tab Sodium Chloride (Saline Flush) 10 ml FLUSH ASDIRECTED PRN PRN Reason: Keep Vein Open Last Admin: 06/16/16 20:18 Dose: 10 ml Tizanidine HCl (Zanaflex) 1 mg PO TID [facility] Last Admin: 06/23/16 09:17 Dose: 1 mg Vancomycin HCl (Pharmacy To Dose - Vancomycin) 0 dose .XX ASDIRECTED PRN PRN Reason: RX DOSE Discontinued Medications Albuterol (Proventil Neb Soln) 0.63 mg NEB ONETIME ONE Stop: 06/19/16 17:53 Last Admin: 06/19/16 18:02 Dose: Not Given Albuterol (Proventil Neb Soln) 2.5 mg NEB ONETIME ONE Stop: 06/19/16 17:53 Last Admin: 06/19/16 18:01 Dose: Not Given Albuterol (Proventil Neb Soln) Confirm Administered Dose 2.5 mg .ROUTE .STK-MED ONE Stop: 06/19/16 17:54 Last Admin: 06/19/16 17:58 Dose: 2.5 mg Albuterol (Proventil Neb Soln) 0.63 mg NEB QIDRT [facility] Albuterol (Proventil Neb Soln) 2.5 mg NEB QIDRT [facility] Last Admin: 06/21/16 06:15 Dose: Not Given Baclofen (Lioresal) 30 mg PO TID [facility] Last Admin: 06/18/16 15:29 Dose: 30 mg Baclofen (Lioresal) 5 mg PO TID [facility] Last Admin: 06/19/16 07:59 Dose: 5 mg Baclofen (Lioresal) 10 mg PO TID [facility] Last Admin: 06/19/16 19:13 Dose: Not Given Baclofen (Lioresal) 5 mg PO ONETIME ONE Stop: 06/19/16 09:38 Last Admin: 06/19/16 10:20 Dose: 5 mg Baclofen (Lioresal) 5 mg PO TID [facility] Baclofen (Lioresal) 5 mg PO TID [facility] Last Admin: 06/20/16 08:08 Dose: 5 mg Baclofen (Lioresal) 5 mg PO BID@1700,2300 [facility] Stop: 06/19/16 23:01 Last Admin: 06/19/16 19:13 Dose: Not Given Baclofen (Lioresal) 5 mg PO BID@1700,2300 [facility] Stop: 06/19/16 23:01 Last Admin: 06/19/16 23:25 Dose: 5 mg Baclofen (Lioresal) 5 mg PO ONETIME ONE Stop: 06/19/16 17:17 Last Admin: 06/19/16 17:26 Dose: 5 mg Baclofen (Lioresal) 10 mg PO TID [facility] Last Admin: 06/20/16 14:32 Dose: 10 mg Bisacodyl (Dulcolax) 10 mg RECTAL ONETIME ONE Stop: 06/19/16 08:43 Last Admin: 06/19/16 09:03 Dose: 10 mg Diphtheria/Tetanus/Acell Pertussis (Boostrix) 0.5 ml IM .ONCE ONE Stop: 06/18/16 11:52 Last Admin: 06/18/16 12:24 Dose: Not Given Enoxaparin Sodium (Lovenox) 40 mg SUBCUT DAILY [facility] Last Admin: 06/21/16 08:09 Dose: 40 mg Fentanyl (Sublimaze) Confirm Administered Dose 100 mcg .ROUTE .STK-MED ONE Stop: 06/22/16 07:14 Sodium Chloride (Normal Saline) 1,000 mls @ 999 mls/hr IV ONETIME ONE Stop: 06/16/16 20:50 Last Infusion: 06/16/16 22:13 Dose: Infused Ceftriaxone Sodium 1 gm/ (Sodium Chloride) 100 mls @ 200 mls/hr IV ONETIME ONE Stop: 06/16/16 22:03 Last Admin: 06/16/16 22:13 Dose: 200 mls/hr Sodium Chloride (Normal Saline) 1,000 mls @ 125 mls/hr IV ONETIME ONE Stop: 06/17/16 05:56 Last Admin: 06/16/16 22:13 Dose: 125 mls/hr Levofloxacin/Dextrose 750 mg/ (Premix) 150 mls @ 100 mls/hr IV Q24H [facility] Last Admin: 06/18/16 18:47 Dose: Not Given Potassium Chloride/Dextrose/Sod Cl (D5 1/2 Ns W/ 20 Meq/L Kcl) 1,000 mls @ 70 mls/hr IV ASDIRECTED [facility] Last Admin: 06/20/16 07:10 Dose: 70 mls/hr Levetiracetam 1,000 mg/ Sodium (Chloride) 110 mls @ 400 mls/hr IV ONETIME ONE Stop: 06/17/16 15:38 Last Admin: 06/17/16 16:07 Dose: 400 mls/hr Levetiracetam 1,000 mg/ Sodium (Chloride) 110 mls @ 400 mls/hr IV Q12H [facility] Last Admin: 06/18/16 12:26 Dose: Not Given Vancomycin HCl 1 gm/ Sodium (Chloride) 250 mls @ 250 mls/hr IV ONETIME ONE Stop: 06/18/16 00:03 Last Admin: 06/17/16 23:18 Dose: 250 mls/hr Magnesium Sulfate 2 gm/ Premix 50 mls @ 25 mls/hr IV ONETIME ONE Stop: 06/18/16 13:06 Last Admin: 06/18/16 12:30 Dose: 25 mls/hr Piperacillin Sod/Tazobactam (Sod 4.5 gm/ Sodium Chloride) 100 mls @ 200 mls/hr IV ONETIME ONE Stop: 06/19/16 13:29 Last Admin: 06/19/16 13:47 Dose: 200 mls/hr Magnesium Sulfate 2 gm/ Premix 50 mls @ 25 mls/hr IV ONETIME ONE Stop: 06/19/16 19:32 Last Admin: 06/19/16 18:08 Dose: 25 mls/hr Potassium Chloride 20 meq/Potassium Chloride/Dextrose/Sod Cl 1,010 mls @ 70 mls /hr IV ASDIRECTED [facility] Potassium Chloride/Dextrose/Sod Cl (D5 1/2 Ns W/ 40 Meq/L Kcl) 1,000 mls @ 69.307 mls/hr IV ASDIRECTED [facility] Last Admin: 06/20/16 11:06 Dose: 69.307 mls/hr Magnesium Sulfate 2 gm/ Premix 50 mls @ 25 mls/hr IV ONETIME ONE Stop: 06/21/16 11:33 Last Admin: 06/21/16 10:02 Dose: 25 mls/hr Lidocaine HCl (Xylocaine-Mpf 1%) Confirm Administered Dose 2 mls @ as directed .ROUTE .STK-MED ONE Stop: 06/22/16 07:19 Magnesium Sulfate 2 gm/ Premix 50 mls @ 25 mls/hr IV ONETIME ONE Stop: 06/22/16 12:42 Last Admin: 06/22/16 11:16 Dose: 25 mls/hr Lactated Ringer's (Ringers, Lactated) Confirm Administered Dose 1,000 mls @ as directed .ROUTE .STK-MED ONE Stop: 06/22/16 10:53 Magnesium Sulfate 2 gm/ Premix 50 mls @ 25 mls/hr IV ONETIME ONE Stop: 06/23/16 12:16 Last Admin: 06/23/16 11:47 Dose: 25 mls/hr Levetiracetam (Keppra) 1,000 mg PO BID [facility] Last Admin: 06/17/16 20:27 Dose: Not Given Lorazepam (Ativan) 1 mg IVPUSH ONETIME ONE Stop: 06/17/16 15:31 Last Admin: 06/17/16 16:03 Dose: 1 mg Metoprolol Tartrate (Lopressor) 2.5 mg IVPUSH Q6H PRN PRN Reason: heart rate Last Admin: 06/17/16 21:28 Dose: 2.5 mg Midazolam HCl (Versed 1 Mg/Ml) Confirm Administered Dose 2 mg .ROUTE .STK-MED ONE Stop: 06/22/16 07:14 Potassium Chloride (Potassium Chloride) 40 meq PO ONETIME ONE Stop: 06/18/16 11:08 Last Admin: 06/18/16 12:33 Dose: 40 meq Propofol (Diprivan 20 Ml) Confirm Administered Dose 200 mg .ROUTE .STK-MED ONE Stop: 06/22/16 07:14 Tizanidine HCl (Zanaflex) 2 mg PO TID [facility] Last Admin: 06/19/16 19:13 Dose: Not Given Tizanidine HCl (Zanaflex) 2 mg PO ONETIME [facility] Stop: 06/19/16 09:38 Last Admin: 06/19/16 10:20 Dose: 2 mg Tizanidine HCl (Zanaflex) 1 mg PO BID@1700,2300 [facility] Stop: 06/19/16 23:01 Last Admin: 06/19/16 23:24 Dose: 1 mg - Exam General: alert, cooperative, no acute distress HEENT: Scleral icterus Neck: supple, trachea midline Lungs: Clear to auscultation, Normal respiratory effort Cardiovascular: Regular Rate, Regular Rhythm Abdomen: soft, no tenderness, no distension, other (PEG tube in position at 5.5 cm, no bleeding ) Extremities: no cyanosis Skin: warm, dry, intact Wound/Incisions: healing well, dressing dry and intact Neurological: no new focal deficit Psy/Mental Status: alert, normal affect, normal mood Consult PN Assessment/Plan Procedures: Procedures ASSAY OF BLOOD OSMOLALITY (08/05/14) ASSAY OF CK (CPK) (04/06/14) ASSAY OF LACTIC ACID (07/21/15) ASSAY OF MAGNESIUM (08/05/14) ASSAY OF NATRIURETIC PEPTIDE (03/12/14) ASSAY OF PHOSPHORUS (08/05/14) ASSAY OF TROPONIN QUANT (08/05/14) BLOOD CULTURE FOR BACTERIA (07/21/15) BLOOD GASES ANY COMBINATION (04/06/14) C-REACTIVE PROTEIN (07/21/15) CHEST X-RAY 1 VIEW FRONTAL (07/21/15) COMPLETE CBC W/AUTO DIFF WBC (07/21/15) COMPREHEN METABOLIC PANEL (07/21/15) CREATINE MB FRACTION (08/05/14) CT ANGIOGRAPHY CHEST (03/12/14) CT HEAD/BRAIN W/O DYE (04/06/14) CULTURE AEROBIC IDENTIFY (06/30/14) VIN SUBQ TISSUE 20 SQ CM/< (03/06/14) ELECTROCARDIOGRAM TRACING (04/06/14) EMERGENCY DEPT VISIT (07/21/15) EMERGENCY DEPT VISIT (08/05/14) EMERGENCY DEPT VISIT (06/30/14) EMERGENCY DEPT VISIT (03/12/14) FIBRIN DEGRADATION QUANT (03/12/14) HYDRATE IV INFUSION ADD-ON (07/21/15) HYDRATION IV INFUSION INIT (03/12/14) INFLUENZA A/B AG IA (03/12/14) INFLUENZA ASSAY W/OPTIC (06/30/14) INSERT BLADDER CATHETER (03/12/14) INSERT TEMP BLADDER CATH (06/30/14) METABOLIC PANEL TOTAL CA (06/30/14) MICROBE SUSCEPTIBLE DIFFUSE (07/21/15) MICROBE SUSCEPTIBLE DISK (07/21/15) MICROBE SUSCEPTIBLE PETER (07/21/15) MR-STAPH DNA AMP PROBE (03/06/14) OT EVALUATION (07/21/15) PROTHROMBIN TIME (03/12/14) PT EVALUATION (07/21/15) RBC SED RATE AUTOMATED (08/05/14) ROUTINE VENIPUNCTURE (07/21/15) THER/DIAG CONCURRENT INF (04/06/14) THER/PROPH/DIAG IV INF ADDON (07/21/15) THER/PROPH/DIAG IV INF INIT (07/21/15) TX/PRO/DX INJ NEW DRUG ADDON (06/30/14) URINALYSIS AUTO W/SCOPE (07/21/15) URINE BACTERIA CULTURE (07/21/15) URINE CULTURE/COLONY COUNT (09/08/15) WITHDRAWAL OF ARTERIAL BLOOD (04/06/14) X-RAY EXAM OF ABDOMEN (07/21/15) (1) Dysphagia SNOMED Code(s): 61630327, 539760166 Code(s): R13.10 - DYSPHAGIA, UNSPECIFIED Current Visit: Yes (2) Multiple sclerosis SNOMED Code(s): 69154989 Code(s): G35 - MULTIPLE SCLEROSIS Current Visit: Yes Problem List Initiated/Reviewed/Updated: Yes My Orders last 24 hours: My Active Orders 06/22/16 16:04 Communication Order [RC] ASDIRECTED Plan: 55 yo POD #1 s/p PEG tube placement No complications May use PEG for meds/ feeds Flush PEG q12HR with 30 mL water Remove sutures (can be done at alf in 2 weeks) Return to my clinic in 6 weeks for PETER-TIRADO sizing and G-tube exchange
--- NOTE | 2016-06-23 12:59 | PCM.DCSUM1 ---
<Sabra Wadsworth M - Last Filed: 06/23/16 13:00> Discharge Summary - Hospital Course Free Text/Narrative:: 55 year old female from a SNF, nonverbal with MS became febrile with at least a temp of 100.5 documented by nursing staff before ED assessment. She is more lethargic, and has at minimal a UTI. UC and BCs have been drawn; a dose of rocephin was given in the ED. A swallow eval has been ordered, currently D5 1/ 2 NS with KCL is running. A transfer from [place] telemetry has been made when the patient appeared to have seizure like activity; a keppra level was ordered last night in the ED. However the level is a send out lab study. In the meantime, the patient has received Ativan 1mg, followed by keppra 1000 mg IV. The SZ like activity has stopped, the patient is more comfortable. A repeat CXR is pending, a CT of the head was unremarkable for acute changes. Course of hospital stay: Patient was stabilized in ICU; no further seizure like activity was noted. She was transferred back to medical surgical floor. Maintained on keppra PO BID. UA/ UC did grow gemella species. BC also were + for staphylococcus epidermidis and aerococcus urinae. She was treated with IV antibiotics during her 7 day stay. She was really unable to keep up with her oral fluid needs. ST was consulted for swallow eval with MS history and dysphagia history. She had been on pudding consistency in the past and recommend continue. SW and Dr. Winston talked to patient at length about PEG tube placement for increase in free water which could help her from getting recurrent UTI's and dehydration. She was in agreement to PEG tube placement. Dr. Chambers was consulted and Peg tube was inserted without incident, tolerated well. Tube was flushing well with free water prior to discharge. Patient is tolerating usual diet post insertion. Repeat BC were negative. VSS, labs stable. She will be discharged back to SNF with PO levaquin x 5 more days with f/up with PCP, Dr. Khan in 5-7 days for recheck. - Discharge Data Discharge Date: 06/23/16 (admit dat3 06/16/16) Discharge Disposition: DC/Tfer to SNF 03 Condition: Good - Patient Summary/Data Operative Procedure(s) Performed: EGD with percutaneous endoscopic gastrostomy tube placement. Complications: None Consults: Consultations 06/17/16 12:38 [employer] INST[employer]ER Evaluation and Treatment [CONS] Routine Labs Pending at D/C: None Recommended Follow-up Testing/Procedures: Follow up with Dr. Khan, PCP within 5-7 days of discharge. Planned Operative Procedure(s) after DC: None Hospital Course: As above - Patient Instructions Diet: Pureed Activity: As Tolerated (PT/OT/ST to continue at [place]) Showering/Bathing: May Shower Notify Provider of: Fever, Increased Pain, Nausea and/or Vomiting - Discharge Plan Prescriptions/Med Rec: Levofloxacin [Levaquin] 500 mg PO Q24H #5 tablet Home Medications: Home Meds Baclofen 30 mg PO TID 04/06/14 [History] FLUoxetine [PROzac] 10 mg PO DAILY 04/06/14 [History] LORazepam [Ativan] 0.25 mg PO BID 04/06/14 [History] tiZANidine HCl [Zanaflex] 2 mg PO TID 04/06/14 [History] Acetaminophen [Tylenol] 2 tab PO Q4HR PRN 06/30/14 [History] Cholecalciferol (Vitamin D3) [Vitamin D3] 2,000 unit PO DAILY 06/30/14 [History] Docusate Sodium/Sennosides [Senna Plus] 2 tab PO BID 06/30/14 [History] Magnesium Oxide 400 mg PO QPM 06/30/14 [History] Multivitamin with Minerals [Multiple Vitamin] 1 tab PO DAILY 06/30/14 [History] levETIRAcetam [Keppra] 1,000 mg PO BID 06/30/14 [History] Lactulose [Chronulac] 15 ml PO DAILY PRN 08/05/14 [History] Bisacodyl [Dulcolax] 10 mg PO DAILY PRN 07/21/15 [History] Bisacodyl [Dulcolax] 10 mg RC ASDIRECTED PRN 07/21/15 [History] Levofloxacin [Levaquin] 500 mg PO Q24H #5 tablet 06/23/16 [Rx] Patient Handouts: PEG Tube Home Guide, [id number], Urinary Tract Infection, Adult, Bacteremia Forms: ED Department Discharge Referrals: Ron Khan MD [Primary Care Provider] - - Discharge Summary/Plan Comment DC Time >30 min.: Yes (40 min) - General Info Date of Service: 06/23/16 Admission Dx/Problem (Free Text: Admission Diagnosis/Problem Admission Diagnosis/Problem Urinary tract infection Functional Status: Reports: pain controlled, tolerating diet, urinating ( incontinent). Denies: new symptoms - Review of Systems General: Reports: No Symptoms HEENT: Reports: no symptoms Pulmonary: Reports: no symptoms Cardiovascular: Reports: No Symptoms Gastrointestinal: Reports: No symptoms. Denies: Abdominal pain, Diarrhea, Nausea, Vomiting Genitourinary: Reports: no symptoms Musculoskeletal: Reports: no symptoms Neurological: Reports: Other (MS) Psychiatric: Reports: anxiety - Patient Data Vitals - Most Recent: Last Vital Signs Temp 98.6 F 06/23/16 03:05 Pulse 93 06/23/16 03:05 Resp 14 06/23/16 03:05 BP 107/96 H 06/23/16 03:05 Pulse Ox 96 06/23/16 03:05 Weight - Most Recent: 73.074 kg I&O - Last 24 hours: Intake & Output 06/22/16 06/23/16 06/23/16 22:59 06:59 14:59 Intake Total 1494 550 0 Output Total 300 Balance 1194 550 0 Lab Results - Last 24 hrs: Laboratory Results - last 24 hr 06/22/16 06/22/16 06/23/16 Range/Units 16:30 21:25 06:06 WBC 8.65 (3.98-10.04) K/mm3 RBC 4.08 (3.98-5.22) M/mm3 Hgb 11.4 (11.2-15.7) gm/L Hct 35.4 (34.1-44.9) % MCV 86.8 (79.4-94.8) fl MCH 27.9 (25.6-32.2) pg MCHC 32.2 (32.2-35.5) g/dl RDW Std Deviation 52.6 H (36.4-46.3) fL Plt Count 431 H (182-369) K/mm3 MPV 8.9 L (9.4-12.3) fl Neut % (Auto) 61.2 (34.0-71.1) % Lymph % (Auto) 25.9 (19.3-51.7) % [place] % (Auto) 10.2 (4.7-12.5) % Eos % (Auto) 2.0 (0.7-5.8) Baso % (Auto) 0.2 (0.1-1.2) % Neut # (Auto) 5.30 (1.56-6.13) K/mm3 Lymph # (Auto) 2.24 (1.18-3.74) K/mm3 [place] # (Auto) 0.88 H (0.24-0.36) K/mm3 Eos # (Auto) 0.17 (0.04-0.36) K/mm3 Baso # (Auto) 0.02 (0.01-0.08) K/mm3 Manual Slide Review Normal smear Sodium (136-145) mEq/L Potassium (3.5-5.1) mEq/L Chloride (98-107) mEq/L Carbon Dioxide (21-32) mEq/L Anion Gap (5-15) BUN (7-18) mg/dL Creatinine (0.55-1.02) mg/dL Est Cr Clr Drug Dosing mL/min Estimated GFR (MDRD) (>60) mL/min BUN/Creatinine Ratio (14-18) Glucose (74-106) mg/dL POC Glucose 89 99 (70-105) mg/dL Calcium (8.5-10.1) mg/dL Magnesium (1.8-2.4) mg/dl 06/23/16 06/23/16 06/23/16 Range/Units 06:06 06:09 11:28 WBC (3.98-10.04) K/mm3 RBC (3.98-5.22) M/mm3 Hgb (11.2-15.7) gm/L Hct (34.1-44.9) % MCV (79.4-94.8) fl MCH (25.6-32.2) pg MCHC (32.2-35.5) g/dl RDW Std Deviation (36.4-46.3) fL Plt Count (182-369) K/mm3 MPV (9.4-12.3) fl Neut % (Auto) (34.0-71.1) % Lymph % (Auto) (19.3-51.7) % [place] % (Auto) (4.7-12.5) % Eos % (Auto) (0.7-5.8) Baso % (Auto) (0.1-1.2) % Neut # (Auto) (1.56-6.13) K/mm3 Lymph # (Auto) (1.18-3.74) K/mm3 [place] # (Auto) (0.24-0.36) K/mm3 Eos # (Auto) (0.04-0.36) K/mm3 Baso # (Auto) (0.01-0.08) K/mm3 Manual Slide Review Sodium 138 (136-145) mEq/L Potassium 3.8 (3.5-5.1) mEq/L Chloride 102 (98-107) mEq/L Carbon Dioxide 28 (21-32) mEq/L Anion Gap 11.8 (5-15) BUN 3 L (7-18) mg/dL Creatinine 0.9 (0.55-1.02) mg/dL Est Cr Clr Drug Dosing 68.04 mL/min Estimated GFR (MDRD) > 60 (>60) mL/min BUN/Creatinine Ratio 3.3 L (14-18) Glucose 105 (74-106) mg/dL POC Glucose 93 104 (70-105) mg/dL Calcium 9.7 (8.5-10.1) mg/dL Magnesium 1.8 (1.8-2.4) mg/dl BUTCH Results - Last 24 hrs: Microbiology 06/19/16 15:34 Aerobic Blood Culture - Preliminary Blood - Venous NO GROWTH AFTER 3 DAYS Anaerobic Blood Culture - Preliminary NO GROWTH AFTER 3 DAYS Med Orders - Current: Current Medications Acetaminophen (Tylenol) 650 mg RECTAL Q6H PRN PRN Reason: Fever Last Admin: 06/19/16 15:07 Dose: 650 mg Baclofen (Lioresal) 15 mg PO TID [facility] Last Admin: 06/23/16 09:16 Dose: 15 mg Dextrose/Water (Dextrose 50% In Water) 50 ml IVPUSH ASDIRECTED PRN PRN Reason: Hypoglycemia Enoxaparin Sodium (Lovenox) 40 mg SUBCUT DAILY [facility] Last Admin: 06/23/16 09:21 Dose: 40 mg Fluoxetine HCl (Prozac) 10 mg PO DAILY [facility] Last Admin: 06/23/16 09:17 Dose: 10 mg Hydralazine HCl (Apresoline) 20 mg IVPUSH Q8H PRN PRN Reason: Hypertension Vancomycin HCl 1 gm/ Sodium (Chloride) 250 mls @ 167 mls/hr IV Q12H [facility] Last Admin: 06/23/16 11:47 Dose: 167 mls/hr Sodium Chloride (Normal Saline) 500 mls @ 999 mls/min IV .BOLUS [facility] Last Admin: 06/18/16 16:45 Dose: 999 mls/min Piperacillin Sod/Tazobactam (Sod 4.5 gm/ Sodium Chloride) 100 mls @ 25 mls/hr IV Q8H [facility] Last Admin: 06/23/16 04:11 Dose: 25 mls/hr Potassium Chloride/Dextrose/Sod Cl (D5 1/2 Ns W/ 40 Meq/L Kcl) 1,000 mls @ 70 mls/hr IV ASDIRECTED [facility] Last Admin: 06/23/16 04:10 Dose: 70 mls/hr Insulin Aspart (Novolog) 0 unit SUBCUT QIDACANDBED [facility] PRN Reason: Protocol Last Admin: 06/23/16 11:48 Dose: Not Given Levetiracetam (Keppra) 1,000 mg PO BID [facility] Last Admin: 06/23/16 09:16 Dose: 1,000 mg Lorazepam (Ativan) 1 mg IVPUSH Q4H PRN PRN Reason: Seizures Last Admin: 06/22/16 03:34 Dose: 1 mg Magnesium Oxide (Magnesium Oxide) 400 mg PO QPM [facility] Last Admin: 06/22/16 18:03 Dose: 400 mg Metoprolol Tartrate (Lopressor) 2.5 mg IVPUSH Q4H PRN PRN Reason: heart rate Last Admin: 06/18/16 01:39 Dose: 2.5 mg Senna/Docusate Sodium (Senna Plus) 2 tab PO BID [facility] Last Admin: 06/23/16 09:16 Dose: 2 tab Sodium Chloride (Saline Flush) 10 ml FLUSH ASDIRECTED PRN PRN Reason: Keep Vein Open Last Admin: 06/16/16 20:18 Dose: 10 ml Tizanidine HCl (Zanaflex) 1 mg PO TID [facility] Last Admin: 06/23/16 09:17 Dose: 1 mg Vancomycin HCl (Pharmacy To Dose - Vancomycin) 0 dose .XX ASDIRECTED PRN PRN Reason: RX DOSE Discontinued Medications Albuterol (Proventil Neb Soln) 0.63 mg NEB ONETIME ONE Stop: 06/19/16 17:53 Last Admin: 06/19/16 18:02 Dose: Not Given Albuterol (Proventil Neb Soln) 2.5 mg NEB ONETIME ONE Stop: 06/19/16 17:53 Last Admin: 06/19/16 18:01 Dose: Not Given Albuterol (Proventil Neb Soln) Confirm Administered Dose 2.5 mg .ROUTE .STK-MED ONE Stop: 06/19/16 17:54 Last Admin: 06/19/16 17:58 Dose: 2.5 mg Albuterol (Proventil Neb Soln) 0.63 mg NEB QIDRT KHAI Albuterol (Proventil Neb Soln) 2.5 mg NEB QIDRT [facility] Last Admin: 06/21/16 06:15 Dose: Not Given Baclofen (Lioresal) 30 mg PO TID [facility] Last Admin: 06/18/16 15:29 Dose: 30 mg Baclofen (Lioresal) 5 mg PO TID [facility] Last Admin: 06/19/16 07:59 Dose: 5 mg Baclofen (Lioresal) 10 mg PO TID [facility] Last Admin: 06/19/16 19:13 Dose: Not Given Baclofen (Lioresal) 5 mg PO ONETIME ONE Stop: 06/19/16 09:38 Last Admin: 06/19/16 10:20 Dose: 5 mg Baclofen (Lioresal) 5 mg PO TID KHAI Baclofen (Lioresal) 5 mg PO TID [facility] Last Admin: 06/20/16 08:08 Dose: 5 mg Baclofen (Lioresal) 5 mg PO BID@1700,2300 [facility] Stop: 06/19/16 23:01 Last Admin: 06/19/16 19:13 Dose: Not Given Baclofen (Lioresal) 5 mg PO BID@1700,2300 [facility] Stop: 06/19/16 23:01 Last Admin: 06/19/16 23:25 Dose: 5 mg Baclofen (Lioresal) 5 mg PO ONETIME ONE Stop: 06/19/16 17:17 Last Admin: 06/19/16 17:26 Dose: 5 mg Baclofen (Lioresal) 10 mg PO TID [facility] Last Admin: 06/20/16 14:32 Dose: 10 mg Bisacodyl (Dulcolax) 10 mg RECTAL ONETIME ONE Stop: 06/19/16 08:43 Last Admin: 06/19/16 09:03 Dose: 10 mg Diphtheria/Tetanus/Acell Pertussis (Boostrix) 0.5 ml IM .ONCE ONE Stop: 06/18/16 11:52 Last Admin: 06/18/16 12:24 Dose: Not Given Enoxaparin Sodium (Lovenox) 40 mg SUBCUT DAILY [facility] Last Admin: 06/21/16 08:09 Dose: 40 mg Fentanyl (Sublimaze) Confirm Administered Dose 100 mcg .ROUTE .STK-MED ONE Stop: 06/22/16 07:14 Sodium Chloride (Normal Saline) 1,000 mls @ 999 mls/hr IV ONETIME ONE Stop: 06/16/16 20:50 Last Infusion: 06/16/16 22:13 Dose: Infused Ceftriaxone Sodium 1 gm/ (Sodium Chloride) 100 mls @ 200 mls/hr IV ONETIME ONE Stop: 06/16/16 22:03 Last Admin: 06/16/16 22:13 Dose: 200 mls/hr Sodium Chloride (Normal Saline) 1,000 mls @ 125 mls/hr IV ONETIME ONE Stop: 06/17/16 05:56 Last Admin: 06/16/16 22:13 Dose: 125 mls/hr Levofloxacin/Dextrose 750 mg/ (Premix) 150 mls @ 100 mls/hr IV Q24H [facility] Last Admin: 06/18/16 18:47 Dose: Not Given Potassium Chloride/Dextrose/Sod Cl (D5 1/2 Ns W/ 20 Meq/L Kcl) 1,000 mls @ 70 mls/hr IV ASDIRECTED [facility] Last Admin: 06/20/16 07:10 Dose: 70 mls/hr Levetiracetam 1,000 mg/ Sodium (Chloride) 110 mls @ 400 mls/hr IV ONETIME ONE Stop: 06/17/16 15:38 Last Admin: 06/17/16 16:07 Dose: 400 mls/hr Levetiracetam 1,000 mg/ Sodium (Chloride) 110 mls @ 400 mls/hr IV Q12H [facility] Last Admin: 06/18/16 12:26 Dose: Not Given Vancomycin HCl 1 gm/ Sodium (Chloride) 250 mls @ 250 mls/hr IV ONETIME ONE Stop: 06/18/16 00:03 Last Admin: 06/17/16 23:18 Dose: 250 mls/hr Magnesium Sulfate 2 gm/ Premix 50 mls @ 25 mls/hr IV ONETIME ONE Stop: 06/18/16 13:06 Last Admin: 06/18/16 12:30 Dose: 25 mls/hr Piperacillin Sod/Tazobactam (Sod 4.5 gm/ Sodium Chloride) 100 mls @ 200 mls/hr IV ONETIME ONE Stop: 06/19/16 13:29 Last Admin: 06/19/16 13:47 Dose: 200 mls/hr Magnesium Sulfate 2 gm/ Premix 50 mls @ 25 mls/hr IV ONETIME ONE Stop: 06/19/16 19:32 Last Admin: 06/19/16 18:08 Dose: 25 mls/hr Potassium Chloride 20 meq/Potassium Chloride/Dextrose/Sod Cl 1,010 mls @ 70 mls /hr IV ASDIRECTED [facility] Potassium Chloride/Dextrose/Sod Cl (D5 1/2 Ns W/ 40 Meq/L Kcl) 1,000 mls @ 69.307 mls/hr IV ASDIRECTED [facility] Last Admin: 06/20/16 11:06 Dose: 69.307 mls/hr Magnesium Sulfate 2 gm/ Premix 50 mls @ 25 mls/hr IV ONETIME ONE Stop: 06/21/16 11:33 Last Admin: 06/21/16 10:02 Dose: 25 mls/hr Lidocaine HCl (Xylocaine-Mpf 1%) Confirm Administered Dose 2 mls @ as directed .ROUTE .STK-MED ONE Stop: 06/22/16 07:19 Magnesium Sulfate 2 gm/ Premix 50 mls @ 25 mls/hr IV ONETIME ONE Stop: 06/22/16 12:42 Last Admin: 06/22/16 11:16 Dose: 25 mls/hr Lactated Ringer's (Ringers, Lactated) Confirm Administered Dose 1,000 mls @ as directed .ROUTE .STK-MED ONE Stop: 06/22/16 10:53 Magnesium Sulfate 2 gm/ Premix 50 mls @ 25 mls/hr IV ONETIME ONE Stop: 06/23/16 12:16 Last Admin: 06/23/16 11:47 Dose: 25 mls/hr Levetiracetam (Keppra) 1,000 mg PO BID [facility] Last Admin: 06/17/16 20:27 Dose: Not Given Lorazepam (Ativan) 1 mg IVPUSH ONETIME ONE Stop: 06/17/16 15:31 Last Admin: 06/17/16 16:03 Dose: 1 mg Metoprolol Tartrate (Lopressor) 2.5 mg IVPUSH Q6H PRN PRN Reason: heart rate Last Admin: 06/17/16 21:28 Dose: 2.5 mg Midazolam HCl (Versed 1 Mg/Ml) Confirm Administered Dose 2 mg .ROUTE .STK-MED ONE Stop: 06/22/16 07:14 Potassium Chloride (Potassium Chloride) 40 meq PO ONETIME ONE Stop: 06/18/16 11:08 Last Admin: 06/18/16 12:33 Dose: 40 meq Propofol (Diprivan 20 Ml) Confirm Administered Dose 200 mg .ROUTE .STK-MED ONE Stop: 06/22/16 07:14 Tizanidine HCl (Zanaflex) 2 mg PO TID [facility] Last Admin: 06/19/16 19:13 Dose: Not Given Tizanidine HCl (Zanaflex) 2 mg PO ONETIME [facility] Stop: 06/19/16 09:38 Last Admin: 06/19/16 10:20 Dose: 2 mg Tizanidine HCl (Zanaflex) 1 mg PO BID@1700,2300 [facility] Stop: 06/19/16 23:01 Last Admin: 06/19/16 23:24 Dose: 1 mg - Exam Quality Assessment: Reports: DVT prophylaxis General: Reports: alert, cooperative, no acute distress HEENT: Reports: Pupils equal, Pupils reactive, EOMI, Mucous membr. moist/pink Neck: Reports: supple Lungs: Reports: Clear to auscultation, Normal respiratory effort, Decreased breath sounds (to bases) Cardiovascular: Reports: Regular Rate, Regular Rhythm Abdomen: Reports: bowel sounds present, soft, no tenderness, no distension, other (Peg site without s/s of infection) (Female) Exam: Deferred Rectal (Female) Exam: Deferred Extremities: Reports: no edema Psy/Mental Status: Reports: alert *Q Meaningful Use (DIS) - VTE *Q VTE Criteria *Q: - Stroke *Q Stroke Criteria *Q: - AMI *Q AMI Criteria *Q: <Kailey Winston - Last Filed: 06/23/16 14:36> Discharge Summary - Hospital Course Free Text/Narrative:: Suggest free water, 240 cc TID to avoid dehydration. Eventually may require PEG tube for tube feedings. - Patient Summary/Data Consults: Consultations 06/17/16 12:38 [employer]LECT[employer] Evaluation and Treatment [CONS] Routine - Patient Data Vitals - Most Recent: Last Vital Signs Temp 36.1 C 06/23/16 12:06 Pulse 84 06/23/16 12:06 Resp 19 06/23/16 12:06 BP 122/86 06/23/16 12:06 Pulse Ox 96 06/23/16 12:06 I&O - Last 24 hours: Intake & Output 06/22/16 06/23/16 06/23/16 22:59 06:59 14:59 Intake Total 1494 550 0 Output Total 300 Balance 1194 550 0 Lab Results - Last 24 hrs: Laboratory Results - last 24 hr 06/22/16 06/22/16 06/23/16 Range/Units 16:30 21:25 06:06 WBC 8.65 (3.98-10.04) K/mm3 RBC 4.08 (3.98-5.22) M/mm3 Hgb 11.4 (11.2-15.7) gm/L Hct 35.4 (34.1-44.9) % MCV 86.8 (79.4-94.8) fl MCH 27.9 (25.6-32.2) pg MCHC 32.2 (32.2-35.5) g/dl RDW Std Deviation 52.6 H (36.4-46.3) fL Plt Count 431 H (182-369) K/mm3 MPV 8.9 L (9.4-12.3) fl Neut % (Auto) 61.2 (34.0-71.1) % Lymph % (Auto) 25.9 (19.3-51.7) % [place] % (Auto) 10.2 (4.7-12.5) % Eos % (Auto) 2.0 (0.7-5.8) Baso % (Auto) 0.2 (0.1-1.2) % Neut # (Auto) 5.30 (1.56-6.13) K/mm3 Lymph # (Auto) 2.24 (1.18-3.74) K/mm3 [place] # (Auto) 0.88 H (0.24-0.36) K/mm3 Eos # (Auto) 0.17 (0.04-0.36) K/mm3 Baso # (Auto) 0.02 (0.01-0.08) K/mm3 Manual Slide Review Normal smear Sodium (136-145) mEq/L Potassium (3.5-5.1) mEq/L Chloride (98-107) mEq/L Carbon Dioxide (21-32) mEq/L Anion Gap (5-15) BUN (7-18) mg/dL Creatinine (0.55-1.02) mg/dL Est Cr Clr Drug Dosing mL/min Estimated GFR (MDRD) (>60) mL/min BUN/Creatinine Ratio (14-18) Glucose (74-106) mg/dL POC Glucose 89 99 (70-105) mg/dL Calcium (8.5-10.1) mg/dL Magnesium (1.8-2.4) mg/dl 06/23/16 06/23/16 06/23/16 Range/Units 06:06 06:09 11:28 WBC (3.98-10.04) K/mm3 RBC (3.98-5.22) M/mm3 Hgb (11.2-15.7) gm/L Hct (34.1-44.9) % MCV (79.4-94.8) fl MCH (25.6-32.2) pg MCHC (32.2-35.5) g/dl RDW Std Deviation (36.4-46.3) fL Plt Count (182-369) K/mm3 MPV (9.4-12.3) fl Neut % (Auto) (34.0-71.1) % Lymph % (Auto) (19.3-51.7) % [place] % (Auto) (4.7-12.5) % Eos % (Auto) (0.7-5.8) Baso % (Auto) (0.1-1.2) % Neut # (Auto) (1.56-6.13) K/mm3 Lymph # (Auto) (1.18-3.74) K/mm3 [place] # (Auto) (0.24-0.36) K/mm3 Eos # (Auto) (0.04-0.36) K/mm3 Baso # (Auto) (0.01-0.08) K/mm3 Manual Slide Review Sodium 138 (136-145) mEq/L Potassium 3.8 (3.5-5.1) mEq/L Chloride 102 (98-107) mEq/L Carbon Dioxide 28 (21-32) mEq/L Anion Gap 11.8 (5-15) BUN 3 L (7-18) mg/dL Creatinine 0.9 (0.55-1.02) mg/dL Est Cr Clr Drug Dosing 68.04 mL/min Estimated GFR (MDRD) > 60 (>60) mL/min BUN/Creatinine Ratio 3.3 L (14-18) Glucose 105 (74-106) mg/dL POC Glucose 93 104 (70-105) mg/dL Calcium 9.7 (8.5-10.1) mg/dL Magnesium 1.8 (1.8-2.4) mg/dl BUTCH Results - Last 24 hrs: Microbiology 06/19/16 15:34 Aerobic Blood Culture - Preliminary Blood - Venous NO GROWTH AFTER 3 DAYS Anaerobic Blood Culture - Preliminary NO GROWTH AFTER 3 DAYS Med Orders - Current: Current Medications Acetaminophen (Tylenol) 650 mg RECTAL Q6H PRN PRN Reason: Fever Last Admin: 06/19/16 15:07 Dose: 650 mg Baclofen (Lioresal) 15 mg PO TID [facility] Last Admin: 06/23/16 09:16 Dose: 15 mg Dextrose/Water (Dextrose 50% In Water) 50 ml IVPUSH ASDIRECTED PRN PRN Reason: Hypoglycemia Enoxaparin Sodium (Lovenox) 40 mg SUBCUT DAILY [facility] Last Admin: 06/23/16 09:21 Dose: 40 mg Fluoxetine HCl (Prozac) 10 mg PO DAILY [facility] Last Admin: 06/23/16 09:17 Dose: 10 mg Hydralazine HCl (Apresoline) 20 mg IVPUSH Q8H PRN PRN Reason: Hypertension Vancomycin HCl 1 gm/ Sodium (Chloride) 250 mls @ 167 mls/hr IV Q12H [facility] Last Admin: 06/23/16 11:47 Dose: 167 mls/hr Sodium Chloride (Normal Saline) 500 mls @ 999 mls/min IV .BOLUS [facility] Last Admin: 06/18/16 16:45 Dose: 999 mls/min Piperacillin Sod/Tazobactam (Sod 4.5 gm/ Sodium Chloride) 100 mls @ 25 mls/hr IV Q8H [facility] Last Admin: 06/23/16 13:38 Dose: Not Given Potassium Chloride/Dextrose/Sod Cl (D5 1/2 Ns W/ 40 Meq/L Kcl) 1,000 mls @ 70 mls/hr IV ASDIRECTED [facility] Last Admin: 06/23/16 04:10 Dose: 70 mls/hr Insulin Aspart (Novolog) 0 unit SUBCUT QIDACANDBED [facility] PRN Reason: Protocol Last Admin: 06/23/16 11:48 Dose: Not Given Levetiracetam (Keppra) 1,000 mg PO BID [facility] Last Admin: 06/23/16 09:16 Dose: 1,000 mg Lorazepam (Ativan) 1 mg IVPUSH Q4H PRN PRN Reason: Seizures Last Admin: 06/22/16 03:34 Dose: 1 mg Magnesium Oxide (Magnesium Oxide) 400 mg PO QPM [facility] Last Admin: 06/22/16 18:03 Dose: 400 mg Metoprolol Tartrate (Lopressor) 2.5 mg IVPUSH Q4H PRN PRN Reason: heart rate Last Admin: 06/18/16 01:39 Dose: 2.5 mg Senna/Docusate Sodium (Senna Plus) 2 tab PO BID [facility] Last Admin: 06/23/16 09:16 Dose: 2 tab Sodium Chloride (Saline Flush) 10 ml FLUSH ASDIRECTED PRN PRN Reason: Keep Vein Open Last Admin: 06/16/16 20:18 Dose: 10 ml Tizanidine HCl (Zanaflex) 1 mg PO TID [facility] Last Admin: 06/23/16 09:17 Dose: 1 mg Vancomycin HCl (Pharmacy To Dose - Vancomycin) 0 dose .XX ASDIRECTED PRN PRN Reason: RX DOSE Discontinued Medications Albuterol (Proventil Neb Soln) 0.63 mg NEB ONETIME ONE Stop: 06/19/16 17:53 Last Admin: 06/19/16 18:02 Dose: Not Given Albuterol (Proventil Neb Soln) 2.5 mg NEB ONETIME ONE Stop: 06/19/16 17:53 Last Admin: 06/19/16 18:01 Dose: Not Given Albuterol (Proventil Neb Soln) Confirm Administered Dose 2.5 mg .ROUTE .STK-MED ONE Stop: 06/19/16 17:54 Last Admin: 06/19/16 17:58 Dose: 2.5 mg Albuterol (Proventil Neb Soln) 0.63 mg NEB QIDRT [facility] Albuterol (Proventil Neb Soln) 2.5 mg NEB QIDRT [facility] Last Admin: 06/21/16 06:15 Dose: Not Given Baclofen (Lioresal) 30 mg PO TID [facility] Last Admin: 06/18/16 15:29 Dose: 30 mg Baclofen (Lioresal) 5 mg PO TID [facility] Last Admin: 06/19/16 07:59 Dose: 5 mg Baclofen (Lioresal) 10 mg PO TID [facility] Last Admin: 06/19/16 19:13 Dose: Not Given Baclofen (Lioresal) 5 mg PO ONETIME ONE Stop: 06/19/16 09:38 Last Admin: 06/19/16 10:20 Dose: 5 mg Baclofen (Lioresal) 5 mg PO TID [facility] Baclofen (Lioresal) 5 mg PO TID [facility] Last Admin: 06/20/16 08:08 Dose: 5 mg Baclofen (Lioresal) 5 mg PO BID@1700,2300 [facility] Stop: 06/19/16 23:01 Last Admin: 06/19/16 19:13 Dose: Not Given Baclofen (Lioresal) 5 mg PO BID@1700,2300 [facility] Stop: 06/19/16 23:01 Last Admin: 06/19/16 23:25 Dose: 5 mg Baclofen (Lioresal) 5 mg PO ONETIME ONE Stop: 06/19/16 17:17 Last Admin: 06/19/16 17:26 Dose: 5 mg Baclofen (Lioresal) 10 mg PO TID [facility] Last Admin: 06/20/16 14:32 Dose: 10 mg Bisacodyl (Dulcolax) 10 mg RECTAL ONETIME ONE Stop: 06/19/16 08:43 Last Admin: 06/19/16 09:03 Dose: 10 mg Diphtheria/Tetanus/Acell Pertussis (Boostrix) 0.5 ml IM .ONCE ONE Stop: 06/18/16 11:52 Last Admin: 06/18/16 12:24 Dose: Not Given Enoxaparin Sodium (Lovenox) 40 mg SUBCUT DAILY [facility] Last Admin: 06/21/16 08:09 Dose: 40 mg Fentanyl (Sublimaze) Confirm Administered Dose 100 mcg .ROUTE .STK-MED ONE Stop: 06/22/16 07:14 Sodium Chloride (Normal Saline) 1,000 mls @ 999 mls/hr IV ONETIME ONE Stop: 06/16/16 20:50 Last Infusion: 06/16/16 22:13 Dose: Infused Ceftriaxone Sodium 1 gm/ (Sodium Chloride) 100 mls @ 200 mls/hr IV ONETIME ONE Stop: 06/16/16 22:03 Last Admin: 06/16/16 22:13 Dose: 200 mls/hr Sodium Chloride (Normal Saline) 1,000 mls @ 125 mls/hr IV ONETIME ONE Stop: 06/17/16 05:56 Last Admin: 06/16/16 22:13 Dose: 125 mls/hr Levofloxacin/Dextrose 750 mg/ (Premix) 150 mls @ 100 mls/hr IV Q24H [facility] Last Admin: 06/18/16 18:47 Dose: Not Given Potassium Chloride/Dextrose/Sod Cl (D5 1/2 Ns W/ 20 Meq/L Kcl) 1,000 mls @ 70 mls/hr IV ASDIRECTED [facility] Last Admin: 06/20/16 07:10 Dose: 70 mls/hr Levetiracetam 1,000 mg/ Sodium (Chloride) 110 mls @ 400 mls/hr IV ONETIME ONE Stop: 06/17/16 15:38 Last Admin: 06/17/16 16:07 Dose: 400 mls/hr Levetiracetam 1,000 mg/ Sodium (Chloride) 110 mls @ 400 mls/hr IV Q12H [facility] Last Admin: 06/18/16 12:26 Dose: Not Given Vancomycin HCl 1 gm/ Sodium (Chloride) 250 mls @ 250 mls/hr IV ONETIME ONE Stop: 06/18/16 00:03 Last Admin: 06/17/16 23:18 Dose: 250 mls/hr Magnesium Sulfate 2 gm/ Premix 50 mls @ 25 mls/hr IV ONETIME ONE Stop: 06/18/16 13:06 Last Admin: 06/18/16 12:30 Dose: 25 mls/hr Piperacillin Sod/Tazobactam (Sod 4.5 gm/ Sodium Chloride) 100 mls @ 200 mls/hr IV ONETIME ONE Stop: 06/19/16 13:29 Last Admin: 06/19/16 13:47 Dose: 200 mls/hr Magnesium Sulfate 2 gm/ Premix 50 mls @ 25 mls/hr IV ONETIME ONE Stop: 06/19/16 19:32 Last Admin: 06/19/16 18:08 Dose: 25 mls/hr Potassium Chloride 20 meq/Potassium Chloride/Dextrose/Sod Cl 1,010 mls @ 70 mls /hr IV ASDIRECTED [facility] Potassium Chloride/Dextrose/Sod Cl (D5 1/2 Ns W/ 40 Meq/L Kcl) 1,000 mls @ 69.307 mls/hr IV ASDIRECTED [facility] Last Admin: 06/20/16 11:06 Dose: 69.307 mls/hr Magnesium Sulfate 2 gm/ Premix 50 mls @ 25 mls/hr IV ONETIME ONE Stop: 06/21/16 11:33 Last Admin: 06/21/16 10:02 Dose: 25 mls/hr Lidocaine HCl (Xylocaine-Mpf 1%) Confirm Administered Dose 2 mls @ as directed .ROUTE .STK-MED ONE Stop: 06/22/16 07:19 Magnesium Sulfate 2 gm/ Premix 50 mls @ 25 mls/hr IV ONETIME ONE Stop: 06/22/16 12:42 Last Admin: 06/22/16 11:16 Dose: 25 mls/hr Lactated Ringer's (Ringers, Lactated) Confirm Administered Dose 1,000 mls @ as directed .ROUTE .STK-MED ONE Stop: 06/22/16 10:53 Magnesium Sulfate 2 gm/ Premix 50 mls @ 25 mls/hr IV ONETIME ONE Stop: 06/23/16 12:16 Last Admin: 06/23/16 11:47 Dose: 25 mls/hr Levetiracetam (Keppra) 1,000 mg PO BID [facility] Last Admin: 06/17/16 20:27 Dose: Not Given Lorazepam (Ativan) 1 mg IVPUSH ONETIME ONE Stop: 06/17/16 15:31 Last Admin: 06/17/16 16:03 Dose: 1 mg Metoprolol Tartrate (Lopressor) 2.5 mg IVPUSH Q6H PRN PRN Reason: heart rate Last Admin: 06/17/16 21:28 Dose: 2.5 mg Midazolam HCl (Versed 1 Mg/Ml) Confirm Administered Dose 2 mg .ROUTE .STK-MED ONE Stop: 06/22/16 07:14 Potassium Chloride (Potassium Chloride) 40 meq PO ONETIME ONE Stop: 06/18/16 11:08 Last Admin: 06/18/16 12:33 Dose: 40 meq Propofol (Diprivan 20 Ml) Confirm Administered Dose 200 mg .ROUTE .STK-MED ONE Stop: 06/22/16 07:14 Tizanidine HCl (Zanaflex) 2 mg PO TID [facility] Last Admin: 06/19/16 19:13 Dose: Not Given Tizanidine HCl (Zanaflex) 2 mg PO ONETIME STA Stop: 06/19/16 09:38 Last Admin: 06/19/16 10:20 Dose: 2 mg Tizanidine HCl (Zanaflex) 1 mg PO BID@1700,2300 [facility] Stop: 06/19/16 23:01 Last Admin: 06/19/16 23:24 Dose: 1 mg *Q Meaningful Use (DIS) - VTE *Q VTE Criteria *Q: - Stroke *Q Stroke Criteria *Q: - AMI *Q AMI Criteria *Q:
[2016-06-23 13:06] VITALS: BP 122/86
== END 2016-06-23 14:17 | DRG 690 ==
LOC: JD.ED 19:31 → JD.MS 22:00 → JD.ICU 06-17 15:34 → JD.MS 06-21 09:42
PROVIDERS: ADMIT Internal Medicine Cardiovascular Disease; ATTEND Internal Medicine Cardiovascular Disease
PROC: 0DH63UZ Insertion of Feeding Device into Stomach, Percutaneous Approach (ICD-10-PCS; principal; 2016-06-22)
DX: N39.0 Urinary tract infection, site not specified (principal); B95.7 Other staphylococcus as the cause of diseases classified elsewhere; R13.10 Dysphagia, unspecified; G35 Multiple sclerosis; R56.9 Unspecified convulsions; R41.82 Altered mental status, unspecified; K59.00 Constipation, unspecified; E11.9 Type 2 diabetes mellitus without complications; M19.90 Unspecified osteoarthritis, unspecified site; M81.0 Age-related osteoporosis without current pathological fracture; G30.9 Alzheimer's disease, unspecified; F02.80 Dementia in other diseases classified elsewhere, unspecified severity, without behavioral disturbance, psychotic disturbance, mood disturbance, and anxiety; Z86.73 Personal history of transient ischemic attack (TIA), and cerebral infarction without residual deficits; Z86.718 Personal history of other venous thrombosis and embolism; F32.9 Major depressive disorder, single episode, unspecified; G47.00 Insomnia, unspecified; E11.8 Type 2 diabetes mellitus with unspecified complications; D64.9 Anemia, unspecified; Z79.899 Other long term (current) drug therapy
CPT/HCPCS: 36415; 71010; 80053; 81001; 83605; 85025; 86140; 87040 ×2; 87086; 87088; 87181 ×3; 87184 ×2; 87186; 87804 ×2; 96361; 99285; J7040; J7050; P9612; 00740; 70450; 70450-26; 80048; 80177; 80202; 82962; 83735; 92526-GN; 92610-GN; 94640-76; 94664; 96374; A9270-GY; J0696; J1650; J1815-GY; J1953; J1956; J2060; J2250; J2543; J2704; J3010; J3370; J3475; J3480; J3490; J7030; J7120

== ENCOUNTER 2016-09-07 12:59 | Inpatient (IN) | payer MEDICAID ==
[2016-09-07] MEDS ORDERED: Sodium Chloride 0.9% 1,000 ML ONE (13:06)
--- NOTE | 2016-09-07 13:09 | EDM.PDOC ---
ED HPI GENERAL MEDICAL PROBLEM - General Chief Complaint: Fever Stated Complaint: [facility] Time Seen by Provider: 09/07/16 13:00 Source of Information: Reports: EMS Notes Reviewed, [facility] Records History Limitations: Reports: Other (non verbal. ) - History of Present Illness INITIAL COMMENTS - FREE TEXT/NARRATIVE: 55-year-old female sent across from local half-way by ambulance due to acute febrile illness and decline in health. Noted to be hypoxic on room air and blood pressure low. Apparently she vomited last night there was some concern that she may have aspirated. Patient has primary multiple sclerosis nonverbal. Therefore no useful history was gleaned from the patient. She is on 5 L of oxygen by nasal cannula started by the paramedics. One IV has been started and she has received 500 mils of normal saline en route to the hospital. Her pressure upon arrival was 80 on 52 but has subsequently dropped to 57/37. Second IV to be started Ringer's lactated open. First IV will be normal saline at open. Appears that she is suffering septic shock. 10 images 102.2. Lungs are clear to auscultation suggesting another source of sepsis such as urinary tract infection. Onset: Sudden Onset Date: 09/06/16 (Unknown for sure but suspect she was ill yesterday that produced the nausea and vomiting.) Duration: Hour(s): Location: Reports: Generalized (Acute febrile illness with low blood pressure and suspect sepsis.) Severity: Severe Improves with: Reports: None Worsens with: Reports: None Context: Reports: Other (Patient is bedridden or wheelchair ridden.). Denies: Activity, Exercise, Lifting, Sick Contact, Trauma Associated Symptoms: Reports: Fever/Chills, Malaise, Nausea/Vomiting (Barely had vomiting once last night. No vomiting reported today), Shortness of Breath ( With hypoxia.), Weakness. Denies: Confusion, Chest Pain, Cough, cough w sputum , Diaphoresis (Temperature 102.2), Headaches, Syncope Treatments [employer]: Reports: Other (see below) (Fluids given by paramedics.) - Related Data Allergies Allergy/AdvReac Type Severity Reaction Status Date / Time No Known Allergies Allergy Verified 07/21/15 15:34 Home Meds: Home Meds Baclofen 30 mg PO TID 04/06/14 [History] FLUoxetine [PROzac] 10 mg PO DAILY 04/06/14 [History] LORazepam [Ativan] 0.25 mg PO BID 04/06/14 [History] tiZANidine HCl [Zanaflex] 2 mg PO TID 04/06/14 [History] Acetaminophen [Tylenol] 2 tab PO Q4HR PRN 06/30/14 [History] Cholecalciferol (Vitamin D3) [Vitamin D3] 2,000 unit PO DAILY 06/30/14 [History] Docusate Sodium/Sennosides [Senna Plus] 2 tab PO BID 06/30/14 [History] Magnesium Oxide 400 mg PO QPM 06/30/14 [History] Multivitamin with Minerals [Multiple Vitamin] 1 tab PO DAILY 06/30/14 [History] levETIRAcetam [Keppra] 1,000 mg PO BID 06/30/14 [History] Lactulose [Chronulac] 15 ml PO DAILY PRN 08/05/14 [History] Nystatin [Nystatin Crm] 1 applic TOP BID 09/07/16 [History] Past Medical History HEENT History: Reports: Other (See Below) Other HEENT History: dysphagia Cardiovascular History: Reports: None Gastrointestinal History: Reports: Chronic Constipation Genitourinary History: Reports: UTI, Recurrent Other Genitourinary History: sepsis secondary to e-coli Musculoskeletal History: Reports: Back Pain, Chronic, Osteoarthritis, Osteoporosis, Other (See Below) Other Musculoskeletal History: MS Neurological History: Reports: Alzheimers Disease, CVA, MS, Seizure (Has a known seizure disorder and is on Keppra for this.) Other Neuro History: chronic embolisms/thrombosis of veins, recurrent strokes, convulsions Psychiatric History: Reports: Alzheimers Disease, Depression Other Psychiatric History: insomnia Endocrine/Metabolic History: Reports: Diabetes, Type II Hematologic History: Reports: Anemia, Other (See Below) Other Hematologic History: eosinophilia - Infectious Disease History Infectious Disease History: Reports: Other (See Below) Other Infectious Disease History: unknown pt unable to answer and it is not listed on half-way paperwork - Past Surgical History Head Surgeries/Procedures: Reports: None Social & Family History - Family History Family Medical History: Unobtainable - Tobacco Use Smoking Status *Q: Unknown Ever Smoked Second Hand Smoke Exposure: No - Caffeine Use Caffeine Use: Reports: None - Alcohol Use Days Per Week of Alcohol Use: 0 - Recreational Drug Use Recreational Drug Use: No ED ROS GENERAL - Review of Systems Review Of Systems: Unable To Obtain (Patient is nonverbal.) ED EXAM, GENERAL - Physical Exam Exam: See Below Exam Limited By: Physical Impairment (Very warm to palpation. Patient is nonverbal due to her severe multiple sclerosis. She has a DO NOT RESUSCITATE order.) General Appearance: Lethargic, Moderate Distress (Respiratory distress she's to Thickened hypoxia. Also hypotensive.) Eye Exam: Bilateral Eye: Normal Inspection Ears: Normal External Exam, Normal Canal, Normal TMs Throat/Mouth: Normal Inspection, Normal Lips, Normal Oropharynx (Tongue is mildly dry and coated.), Other Head: Atraumatic, Normocephalic Neck: Normal Inspection, Supple, Non-Tender, Full Range of Motion, Other (No jugular venous pulsations). No: Lymphadenopathy (L), Lymphadenopathy (R) Respiratory/Chest: Respiratory Distress, Decreased Breath Sounds (Moderate respiratory distress with tachypnea of 22-24/m. O2 sats are 99% on 5 L by nasal cannula. Lungs however are clear anteriorly with decreased air entry to the bases. Decreased to the lower 40% of lung soares due to poor inspiratory effort. ), Other (No adventitial sounds were heard.) Cardiovascular: Regular Rate, Rhythm, No Edema, No Gallop, No Murmur, No Rub. No: Normal Peripheral Pulses Peripheral Pulses: 1+: Posterior Tibial (L), Posterior Tibial (R), Dorsalis Pedis (L), Dorsalis Pedis (R) GI/Abdominal: Soft, Non-Tender, No Organomegaly, No Distention, No Abnormal Bruit, Abnormal Bowel Sounds (Hypoactive bowel sounds.). No: Guarding, Rigid, Rebound Back Exam: Normal Inspection Extremities: Other (Mild PPD edema in both lower extremities.). No: Normal Range of Motion, Non-Tender Neurological: Abnormal Reflexes (Hyperactive reflexes 4+ nature's 4+ biceps.), Other. No: Normal Cognition, Normal Reflexes Skin Exam: Warm, Dry, Intact, Normal Color, No Rash Course - Vital Signs Last Recorded V/S: Last Vital Signs Temp 39.0 C H 09/07/16 13:02 Pulse 89 09/07/16 13:02 Resp 18 09/07/16 13:02 BP 80/44 L 09/07/16 13:02 Pulse Ox 99 09/07/16 13:02 - Orders/Labs/Meds Orders: Active Orders 24 hr Category Date Time Status Admission Status [Patient Status] [ADT] Routine ADT 09/07/16 16:24 Ordered EKG Documentation Completion [RC] STAT Care 09/07/16 13:09 Active Insert [place] Catheter [Insert Urinary Catheter] [OM.PC] Care 09/07/16 13:15 Ordered Q24H Urinary Catheter Assessment [RC] ASDIRECTED Care 09/07/16 13:07 Active CULTURE BLOOD [BC] Stat Lab 09/07/16 13:45 Received CULTURE BLOOD [BC] Stat Lab 09/07/16 14:22 Received CULTURE URINE [RM] Stat Lab 09/07/16 15:30 Received Lactated Ringers [Ringers, Lactated] 1,000 ml Med 09/07/16 14:40 Active IV ASDIRECTED Norepinephrine [Levophed] 4 mg Med 09/07/16 13:45 Active Dextrose 5% in Water 246 ml IV TITRATE Sodium Chloride 0.9% [Normal Saline] 1,000 ml Med 09/07/16 13:15 Active IV ASDIRECTED Vancomycin 1 gm Med 09/07/16 15:53 Active Sodium Chloride 0.9% [Normal Saline] 250 ml IV ONETIME Vancomycin [Vancocin] 1 gm Med 09/07/16 15:53 Active Sodium Chloride 0.9% [Normal Saline] 250 ml IV ONETIME Blood Culture x2 Reflex Set [OM.PC] Stat Oth 09/07/16 13:05 Ordered Medication Orders Sodium Chloride (Normal Saline) 1,000 mls @ 999 mls/hr IV ASDIRECTED [facility] Last Admin: 09/07/16 13:04 Dose: 999 mls/hr Norepinephrine Bitartrate 4 mg (/ Dextrose/Water) 250 mls @ 15 mls/hr IV TITRATE [facility]; 4 MCG/MIN PRN Reason: Protocol Last Admin: 09/07/16 14:20 Dose: 4 mcg/min, 15 mls/hr Lactated Ringer's (Ringers, Lactated) 1,000 mls @ 500 mls/hr IV ASDIRECTED [facility] Last Admin: 09/07/16 14:40 Dose: 500 mls/hr Vancomycin HCl 1 gm/ Sodium (Chloride) 250 mls @ 250 mls/hr IV ONETIME ONE Stop: 09/07/16 16:52 Vancomycin HCl 1 gm/ Sodium (Chloride) 250 mls @ 250 mls/hr IV ONETIME ONE Stop: 09/07/16 16:52 Labs: Laboratory Tests 09/07/16 09/07/16 09/07/16 Range/Units 13:07 13:45 13:45 WBC 13.02 H (3.98-10.04) K/mm3 RBC 2.93 L (3.98-5.22) M/mm3 Hgb 8.5 L (11.2-15.7) gm/L Hct 26.5 L (34.1-44.9) % MCV 90.4 (79.4-94.8) fl MCH 29.0 (25.6-32.2) pg MCHC 32.1 L (32.2-35.5) g/dl RDW Std Deviation 55.0 H (36.4-46.3) fL Plt Count 309 (182-369) K/mm3 MPV 10.0 (9.4-12.3) fl Neutrophils % (Manual) 78 H (40-60) % Band Neutrophils % 0 (0-10) % Lymphocytes % (Manual) 16 L (20-40) % Atypical Lymphs % 1 % Monocytes % (Manual) 5 (2-10) % Eosinophils % (Manual) 0 L (0.7-5.8) % Basophils % (Manual) 0 L (0.1-1.2) Platelet Estimate Adequate Microcytosis 2+ moderate Macrocytosis 2+ moderate RBC Morph Comment Not Reportable PT 10.3 (8.0-13.0) SECONDS INR 0.95 Puncture Site Lt radial ABG pH 7.44 (7.35-7.45) ABG pCO2 34.0 L (35.0-45.0) mmHg ABG pO2 94.0 (80.0-100.0) mmHg ABG HCO3 22.8 (22.0-26.0) meq/L ABG O2 Saturation 98.8 H (96.0-97.0) % ABG Base Excess -0.5 (-2-2.0) Danny Test Positive A-a Gradient 119 mmHg O2 Delivery Device Nasal cannula Oxygen Flow Rate 5.0 FiO2 0.00 L (21.00-100.00) % Sodium (136-145) mEq/L Potassium (3.5-5.1) mEq/L Chloride (98-107) mEq/L Carbon Dioxide (21-32) mEq/L Anion Gap (5-15) BUN (7-18) mg/dL Creatinine (0.55-1.02) mg/dL Est Cr Clr Drug Dosing mL/min Estimated GFR (MDRD) (>60) mL/min BUN/Creatinine Ratio (14-18) Glucose (74-106) mg/dL Lactic Acid (0.4-2.0) mmol/L Calcium (8.5-10.1) mg/dL Magnesium (1.8-2.4) mg/dl Total Bilirubin (0.2-1.0) mg/dL AST (15-37) U/L ALT (14-59) U/L Alkaline Phosphatase (46-116) U/L CK-MB (CK-2) (0-3.6) ng/ml Troponin I (0.00-0.056) ng/mL C-Reactive Protein (<1.0) mg/dL Total Protein (6.4-8.2) g/dl Albumin (3.4-5.0) g/dl Globulin gm/dL Albumin/Globulin Ratio (1-2) Urine Color (Yellow) Urine Appearance (Clear) Urine pH (5.0-8.0) Ur Specific [place] (1.005-1.030) Urine Protein (Negative) Urine Glucose (UA) (Negative) Urine Ketones (Negative) Urine Occult Blood (Negative) Urine Nitrite (Negative) Urine Bilirubin (Negative) Urine Urobilinogen (0.2-1.0) Ur Leukocyte Esterase (Negative) Urine RBC (0-5) /hpf Urine WBC (0-5) /hpf Urine WBC Clumps (NOT SEEN) /hpf Ur Epithelial Cells (0-5) /hpf Ur Squamous Epith Cells (0-5) /hpf Ur Transition Epith Cell (0-5) Urine Bacteria (FEW) /hpf Urine Mucus (FEW) /hpf 09/07/16 09/07/16 09/07/16 Range/Units 13:45 13:45 15:30 WBC (3.98-10.04) K/mm3 RBC (3.98-5.22) M/mm3 Hgb (11.2-15.7) gm/L Hct (34.1-44.9) % MCV (79.4-94.8) fl MCH (25.6-32.2) pg MCHC (32.2-35.5) g/dl RDW Std Deviation (36.4-46.3) fL Plt Count (182-369) K/mm3 MPV (9.4-12.3) fl Neutrophils % (Manual) (40-60) % Band Neutrophils % (0-10) % Lymphocytes % (Manual) (20-40) % Atypical Lymphs % % Monocytes % (Manual) (2-10) % Eosinophils % (Manual) (0.7-5.8) % Basophils % (Manual) (0.1-1.2) Platelet Estimate Microcytosis Macrocytosis RBC Morph Comment PT (8.0-13.0) SECONDS INR Puncture Site ABG pH (7.35-7.45) ABG pCO2 (35.0-45.0) mmHg ABG pO2 (80.0-100.0) mmHg ABG HCO3 (22.0-26.0) meq/L ABG O2 Saturation (96.0-97.0) % ABG Base Excess (-2-2.0) Danny Test A-a Gradient mmHg O2 Delivery Device Oxygen Flow Rate FiO2 (21.00-100.00) % Sodium 139 (136-145) mEq/L Potassium 4.0 (3.5-5.1) mEq/L Chloride 105 (98-107) mEq/L Carbon Dioxide 27 (21-32) mEq/L Anion Gap 11.0 (5-15) BUN 18 (7-18) mg/dL Creatinine 0.8 (0.55-1.02) mg/dL Est Cr Clr Drug Dosing 64.32 mL/min Estimated GFR (MDRD) > 60 (>60) mL/min BUN/Creatinine Ratio 22.5 H (14-18) Glucose 112 H (74-106) mg/dL Lactic Acid 1.8 (0.4-2.0) mmol/L Calcium 8.6 (8.5-10.1) mg/dL Magnesium 1.7 L (1.8-2.4) mg/dl Total Bilirubin 0.3 (0.2-1.0) mg/dL AST 15 (15-37) U/L ALT 18 (14-59) U/L Alkaline Phosphatase 68 (46-116) U/L CK-MB (CK-2) < 0.5 (0-3.6) ng/ml Troponin I < 0.017 (0.00-0.056) ng/mL C-Reactive Protein 10.0 H* (<1.0) mg/dL Total Protein 6.7 (6.4-8.2) g/dl Albumin 2.2 L (3.4-5.0) g/dl Globulin 4.5 gm/dL Albumin/Globulin Ratio 0.5 L (1-2) Urine Color Yellow (Yellow) Urine Appearance Cloudy H (Clear) Urine pH 7.0 (5.0-8.0) Ur Specific [place] 1.020 (1.005-1.030) Urine Protein 1+ H (Negative) Urine Glucose (UA) Negative (Negative) Urine Ketones Negative (Negative) Urine Occult Blood 1+ H (Negative) Urine Nitrite Positive H (Negative) Urine Bilirubin Negative (Negative) Urine Urobilinogen 0.2 (0.2-1.0) Ur Leukocyte Esterase 3+ H (Negative) Urine RBC 0-5 (0-5) /hpf Urine WBC >100 H (0-5) /hpf Urine WBC Clumps Moderate (NOT SEEN) /hpf Ur Epithelial Cells 10-20 H (0-5) /hpf Ur Squamous Epith Cells 10-20 H (0-5) /hpf Ur Transition Epith Cell 0-5 (0-5) Urine Bacteria Many H (FEW) /hpf Urine Mucus Few (FEW) /hpf Meds: Medications Generic Name Dose Route Start Last Admin Trade Name Lucaq PRN Reason Stop Dose Admin Sodium Chloride 1,000 mls @ 999 mls/hr 09/07/16 13:15 09/07/16 13:04 Normal Saline IV 999 mls/hr ASDIRECTED [facility] Administration Norepinephrine Bitartrate 4 mg 250 mls @ 15 mls/hr 09/07/16 13:45 09/07/16 14 :20 / Dextrose/Water IV 4 mcg/min TITRATE [facility] 15 mls/hr Protocol Administration 4 MCG/MIN Lactated Ringer's 1,000 mls @ 500 mls/hr 09/07/16 14:40 09/07/16 14:40 Ringers, Lactated IV 500 mls/hr ASDIRECTED [facility] Administration Vancomycin HCl 1 gm/ Sodium 250 mls @ 250 mls/hr 09/07/16 15:53 Chloride IV 09/07/16 16:52 ONETIME ONE Vancomycin HCl 1 gm/ Sodium 250 mls @ 250 mls/hr 09/07/16 15:53 Chloride IV 09/07/16 16:52 ONETIME ONE Discontinued Medications Generic Name Dose Route Start Last Admin Trade Name Isabela PRN Reason Stop Dose Admin Etomidate Confirm 09/07/16 14:16 09/07/16 15:58 Amidate Administered 09/07/16 14:17 Not Given Dose 40 mg IVPUSH .STK-MED ONE Etomidate 15 mg 09/07/16 14:18 09/07/16 14:18 Amidate IVPUSH 09/07/16 14:19 15 mg ONETIME ONE Administration Etomidate 30 mg 09/07/16 15:00 09/07/16 15:00 Amidate IVPUSH 09/07/16 15:01 30 mg ONETIME ONE Administration Fentanyl Confirm 09/07/16 14:32 09/07/16 15:59 Sublimaze Administered 09/07/16 14:33 Not Given Dose 100 mcg .ROUTE .STK-MED ONE Fentanyl 100 mcg 09/07/16 14:30 09/07/16 14:30 Sublimaze IVPUSH 09/07/16 14:31 100 mcg ONETIME ONE Administration Sodium Chloride Confirm 09/07/16 13:06 09/07/16 13:15 Normal Saline Administered 09/07/16 13:07 Not Given Dose 1,000 mls @ as directed .ROUTE .STK-MED ONE Lactated Ringer's 1,000 mls @ 999 mls/hr 09/07/16 13:11 09/07/16 13:13 Ringers, Lactated IV 09/07/16 14:11 999 mls/hr .BOLUS ONE Administration Levofloxacin/Dextrose 750 mg/ 150 mls @ 100 mls/hr 09/07/16 13:28 09/07/16 13 :45 Premix IV 09/07/16 14:57 100 mls/hr ONETIME ONE Administration Midazolam HCl Confirm 09/07/16 14:10 09/07/16 15:59 Versed 1 Mg/Ml Administered 09/07/16 14:11 Not Given Dose 2 mg .ROUTE .STK-MED ONE Midazolam HCl 2 mg 09/07/16 14:15 09/07/16 14:15 Versed 1 Mg/Ml IVPUSH 09/07/16 14:16 2 mg ONETIME ONE Administration Midazolam HCl 2 mg 09/07/16 14:31 09/07/16 14:31 Versed 1 Mg/Ml IVPUSH 09/07/16 14:32 2 mg ONETIME ONE Administration Ondansetron HCl 4 mg 09/07/16 13:40 09/07/16 13:50 Zofran IVPUSH 09/07/16 13:41 4 mg ONETIME ONE Administration - Radiology Interpretation Free Text/Narrative:: 55-year-old female with primary multiple sclerosis and across from the half-way due to noted hypoxemia hypo-tension and fever. Fairly she vomited once last night and the concern was for possible aspiration pneumonitis. On examination however she is hypotensive with BP initially 80/40 and then it fell to as low as 57/37. She is very warm to palpation suspect septic shock. 2 IVs will be started one will be LR 1 OB normal saline both open to see if we can restore her blood pressure. Otherwise vasopressors will be utilized fairly immediately. She has DO NOT RESUSCITATE status and therefore difficult to know exactly how far to proceed. Septic workup will be done. Will start antibiotics as soon as blood cultures 2 are completed. O2 sats are 99% on 5 L by nasal cannula. - Re-Assessments/Exams Free Text/Narrative Re-Assessment/Exam: 09/07/16 13:28 BP is 80/43. 09/07/16: Remains hypotensive at 80/41. Will start her on Levophed at 4 mg IV to prevent nausea from the levophed. 09/07/16 13:52 unable to gain decent IV access they've a 22-gauge and 20-gauge in place. She is going to need fluids. Laboratory draw one blood culture. I will therefore start a central line and hopefully in the subclavian with a view to obtaining a blood culture and being able to utilize the Levothroid drip more effectively and fluid resuscitation. Patient is not able to give consent. He will be done on an emergent basis. 09/07/16 15:12 multiple attempts at starting a right subclavian line failed. Blood was obtained on 2 occasions from the right subclavian vein and enough was obtained for blood culture and other labs. However I was unable to advance the guidewire due to hitting the clavicle and first rib. 2 attempts failed necessary. One attempt in the right femoral although I could never find a femoral arterial pulse. Even ultrasound was utilized but could not identify femoral artery or vein well enough to cannulate. BP has now improved to 134 systolic. This is on ephedrine at 4 mcg/m. Procedure would offer be abandoned at this time although her peripheral venous access is tenuous at best one is a 24-gauge and one is a 22-gauge. Tentatively if her pressure comes up enough she may well start to have other peripheral veins that may be more accessible. Failing this I will attempt subclavian on the left side. 09/07/16 15:17 total white count was 13.02 was 70% neutrophils and no bands. Hemoglobin is low at 8.5 and I will therefore recross best for 2 units of packed cells. Hematocrit is 26.5 platelets are 309,000. Blood gases done earlier were 7.44 pH PCO2 of 34 PO2 was 94 and 5 L by nasal cannula. INR was 0.95 PT is 10.3. Sodium was 139 potassium is 4.0 chloride 105. Glucose 112 blood gas was 1.8. CRP was 10. Troponin is less than 0.017. Tentatively this patient will be admitted to the intensive care unit due to sepsis suspect urinary tract pathogen. The chest x-ray was clear without any signs of pneumonia. 09/07/16 16:14 urinalysis reveals positive nitrates and 3+ leukocyte esterase urine culture ordered. Therefore the urine does appear to once again to be the source of her sepsis. Catheterization got 240 mils of urine out which was very foul-smelling and cloudy. She needs to be monitored for possible urinary retention as a cause of recurrent urinary tract infections and sepsis. 09/07/16 16:25 spoke with on-call hospitalist Dr. Skelton and patient will be admitted to the intensive care unit. Blood pressure is well maintained on current Levothroid drip at 4 mg micrograms per minute. Last BP is98/48 on Lephofed 4mcg/min. Departure - Departure Time of Disposition: 16:27 Disposition: Admitted As Inpatient 68 Condition: Serious Clinical Impression: Septic shock, UTI, Urinary tract infectious disease, Nonverbal - Discharge Information Critical Care Note - Critical Care Note Total Time (mins): 60 - My Orders Last 24 Hours: My Active Orders 09/07/16 13:05 Blood Culture x2 Reflex Set [OM.PC] Stat 09/07/16 13:07 Urinary Catheter Assessment [RC] ASDIRECTED 09/07/16 13:09 EKG Documentation Completion [RC] STAT 09/07/16 13:15 Insert [place] Catheter [Insert Urinary Catheter] [OM.PC] Q24H Sodium Chloride 0.9% [Normal Saline] 1,000 ml IV ASDIRECTED 09/07/16 13:45 CULTURE BLOOD [BC] Stat Norepinephrine [Levophed] 4 mg Dextrose 5% in Water 246 ml IV TITRATE 09/07/16 14:22 CULTURE BLOOD [BC] Stat 09/07/16 14:40 Lactated Ringers [Ringers, Lactated] 1,000 ml IV ASDIRECTED 09/07/16 15:30 CULTURE URINE [RM] Stat 09/07/16 15:53 Vancomycin 1 gm Sodium Chloride 0.9% [Normal Saline] 250 ml IV ONETIME Vancomycin [Vancocin] 1 gm Sodium Chloride 0.9% [Normal Saline] 250 ml IV ONETIME 09/07/16 16:24 Admission Status [Patient Status] [ADT] Routine - Assessment/Plan Last 24 Hours: My Active Orders 09/07/16 13:05 Blood Culture x2 Reflex Set [OM.PC] Stat 09/07/16 13:07 Urinary Catheter Assessment [RC] ASDIRECTED 09/07/16 13:09 EKG Documentation Completion [RC] STAT 09/07/16 13:15 Insert [place] Catheter [Insert Urinary Catheter] [OM.PC] Q24H Sodium Chloride 0.9% [Normal Saline] 1,000 ml IV ASDIRECTED 09/07/16 13:45 CULTURE BLOOD [BC] Stat Norepinephrine [Levophed] 4 mg Dextrose 5% in Water 246 ml IV TITRATE 09/07/16 14:22 CULTURE BLOOD [BC] Stat 09/07/16 14:40 Lactated Ringers [Ringers, Lactated] 1,000 ml IV ASDIRECTED 09/07/16 15:30 CULTURE URINE [RM] Stat 09/07/16 15:53 Vancomycin 1 gm Sodium Chloride 0.9% [Normal Saline] 250 ml IV ONETIME Vancomycin [Vancocin] 1 gm Sodium Chloride 0.9% [Normal Saline] 250 ml IV ONETIME 06/15/17 16:24 Admission Status [Patient Status] [ADT] Routine
[2016-09-07] MEDS ORDERED: Lactated Ringers 1,000 ML IV ONE (13:11)
[2016-09-07] MEDS ORDERED: Sodium Chloride 0.9% 1,000 ML IV SCH (13:15)
[2016-09-07] MEDS ORDERED: Levofloxacin/Dextrose 5%-Water 750 MG in Premix Bag 1 BAG IV ONE (13:28)
[2016-09-07] MEDS ORDERED: Ondansetron 4 MG/2 ML SDV IVPUSH ONE (13:40)
[2016-09-07] MEDS ORDERED: Midazolam 1 MG/ML 2 ML SDV ONE (14:10)
[2016-09-07] MEDS ORDERED: Midazolam 1 MG/ML 2 ML SDV IVPUSH ONE ×2 (14:15→14:31)
[2016-09-07] MEDS ORDERED: Etomidate 2 MG/ML 20 ML SDV IVPUSH ONE ×3 (14:16→15:00)
[2016-09-07] MEDS: Norepinephrine 4 MG in Dextrose 5% in Water 246 ML IV SCH ×2 (14:20)
--- NOTE | 2016-09-07 14:20 | CR ---
Chest: Frontal view of the chest was obtained. Comparison: Previous chest x-ray of 06/20/16. Heart size and mediastinum are normal. Lungs are clear. Bony structures are grossly intact. Impression: 1. Nothing acute is seen on frontal chest x-ray. No significant change is seen from prior exam. Diagnostic code #1
[2016-09-07] MEDS ORDERED: fentaNYL 100 MCG/2 ML SDV IVPUSH ONE (14:30)
[2016-09-07] MEDS ORDERED: Midazolam 1 MG/ML 5 ML SDV ONE (14:32)
[2016-09-07] MEDS ORDERED: fentaNYL 100 MCG/2 ML SDV ONE (14:32)
[2016-09-07] MEDS: Lactated Ringers 1,000 ML IV SCH (14:40)
--- NOTE | 2016-09-07 16:21 | PCM.HP ---
<Cory Skelton T - Last Filed: 09/08/16 21:47> H&P History of Present Illness - General Date of Service: 09/07/16 Admit Problem/Dx: Septic Shock and UTI Source of Information: Patient, Old Records, Provider, RN Notes Reviewed History Limitations: Reports: Altered Mental Status, Physical Impairment - History of Present Illness Initial Comments - Free Text/Narative: This is a 55-year-old white female with past medical history of MS, Dysphagia S/ p PEG tube placement, chronic urinary tract infection, urinary incontinence, chronic constipation, chronic back pain, nausea arthritis, osteoporosis, Alzheimer's disease, history of CVA, seizure disorder, MS, history of chronic thromboembolism, history of depression, insomnia, type 2 diabetes, chronic anemia, and eosinophilia who comes from a local assisted due to acute febrile illness and declining overall health. On presentation to the emergency department patient was found to be severely hypotensive with blood pressure as low at 57/37 mmHg. Her initial workup in the emergency department shows a CBC remarkable for WBC of 13.020, RBC of 2.9, hemoglobin of 8.5, hematocrit of 26.5, and neutrophils of 78%. PT of 10.3 and INR of 0.95. Her ABG shows a pH of 7.44, PCO2 of 34, PO2 of 94, HCO3 of 22.8 and O2 sat of 98.8% on 5 L nasal cannula. Her chemistry is remarkable for glucose of 112, lactic acid of 1.8, magnesium of 1.7, CRP of 10 and albumin of 2.2. CK-MB and troponin 1 were both negative. Her initial chest x-ray shows nothing acute seen. Patient is currently sedated from meds she got in ED. Central line access was attempted in ED but w/o any success. Patient is being admitted for Urosepsis with Septic shock. She is DNR per ED medical documentation. - Related Data Allergies/Adverse Reactions: Allergies Allergy/AdvReac Type Severity Reaction Status Date / Time No Known Allergies Allergy Verified 07/21/15 15:34 Home Medications: Home Meds Baclofen 30 mg PO TID 04/06/14 [History] FLUoxetine [PROzac] 10 mg PO DAILY 04/06/14 [History] LORazepam [Ativan] 0.25 mg PO BID 04/06/14 [History] tiZANidine HCl [Zanaflex] 2 mg PO TID 04/06/14 [History] Acetaminophen [Tylenol] 2 tab PO Q4HR PRN 06/30/14 [History] Cholecalciferol (Vitamin D3) [Vitamin D3] 2,000 unit PO DAILY 06/30/14 [History] Docusate Sodium/Sennosides [Senna Plus] 2 tab PO BID 06/30/14 [History] Magnesium Oxide 400 mg PO QPM 06/30/14 [History] Multivitamin with Minerals [Multiple Vitamin] 1 tab PO DAILY 06/30/14 [History] levETIRAcetam [Keppra] 1,000 mg PO BID 06/30/14 [History] Lactulose [Chronulac] 15 ml PO DAILY PRN 08/05/14 [History] Nystatin [Nystatin Crm] 1 applic TOP BID 09/07/16 [History] Past Medical History HEENT History: Reports: Other (See Below) Other HEENT History: dysphagia Cardiovascular History: Reports: None Gastrointestinal History: Reports: Chronic Constipation Other Gastrointestinal History: encephalopathy Genitourinary History: Reports: UTI, Recurrent Other Genitourinary History: sepsis secondary to e-coli Musculoskeletal History: Reports: Back Pain, Chronic, Osteoarthritis, Osteoporosis, Other (See Below) Other Musculoskeletal History: MS Neurological History: Reports: Alzheimers Disease, CVA, MS, Seizure (Has a known seizure disorder and is on Keppra for this.) Other Neuro History: chronic embolisms/thrombosis of veins, recurrent strokes, convulsions Psychiatric History: Reports: Alzheimers Disease, Depression Other Psychiatric History: insomnia Endocrine/Metabolic History: Reports: Diabetes, Type II Other Endocrine/Metabolic History: eosinophilia, follicular disorder, disorders of magnesium metabolismm anemia, hypercalcemia, hypokalemia Hematologic History: Reports: Anemia, Other (See Below) Other Hematologic History: eosinophilia - Infectious Disease History Infectious Disease History: Reports: Other (See Below) Other Infectious Disease History: unknown pt unable to answer and it is not listed on assisted paperwork - Past Surgical History Head Surgeries/Procedures: Reports: None Social & Family History - Family History Family Medical History: Unobtainable - Tobacco Use Smoking Status *Q: Unknown Ever Smoked Second Hand Smoke Exposure: No - Caffeine Use Caffeine Use: Reports: None - Alcohol Use Days Per Week of Alcohol Use: 0 - Recreational Drug Use Recreational Drug Use: No H&P Review of Systems - Review of Systems: Review Of Systems: Unable To Obtain Review of Systems Comment:: Patient is currently sedated from meds she got in ED Exam - Exam Exam: See Below - Vital Signs Vital Signs: Last Vital Signs Temp 39.0 C H 09/07/16 13:02 Pulse 89 09/07/16 13:02 Resp 18 09/07/16 13:02 BP 80/44 L 09/07/16 13:02 Pulse Ox 99 09/07/16 13:02 Weight: 54.8 kg - Exam General: Sedated, Lethargic. No: Mild Distress HEENT: No: Mucosa Moist & [place], Nares Patent, Normal Nasal Septum, Posterior Pharynx Clear Neck: Supple, Trachea Midline Lungs: Normal Respiratory Effort, Decreased Breath Sounds Cardiovascular: Tachycardia Abdomen: Normal Bowel Sounds, Distention, Other (PEG tube ). No: Organomegaly, Tenderness (Female) Exam: Other (indwelling walters catheter) Rectal (Female) Exam: Deferred Back Exam: Normal Inspection, Decreased Range of Motion Extremities: Normal Inspection, Normal Pulses Peripheral Pulses: 2+: Posterior Tibial (L), Posterior Tibial (R), Dorsalis Pedis (L), Dorsalis Pedis (R) Skin: Warm, Dry, Intact, Decubitis Skin Alteration Location (Drawings Not To Scale): 1 - stage 2-3 sacral ulcer Physical Exam Comments:: Patient is currently sedated from meds she got in ED. Physical examination is very limited. - Patient Data Lab Results Last 24 hrs: Laboratory Results - last 24 hr 09/07/16 09/07/16 09/07/16 Range/Units 13:07 13:45 13:45 WBC 13.02 H (3.98-10.04) K/mm3 RBC 2.93 L (3.98-5.22) M/mm3 Hgb 8.5 L (11.2-15.7) gm/L Hct 26.5 L (34.1-44.9) % MCV 90.4 (79.4-94.8) fl MCH 29.0 (25.6-32.2) pg MCHC 32.1 L (32.2-35.5) g/dl RDW Std Deviation 55.0 H (36.4-46.3) fL Plt Count 309 (182-369) K/mm3 MPV 10.0 (9.4-12.3) fl Neutrophils % (Manual) 78 H (40-60) % Band Neutrophils % 0 (0-10) % Lymphocytes % (Manual) 16 L (20-40) % Atypical Lymphs % 1 % Monocytes % (Manual) 5 (2-10) % Eosinophils % (Manual) 0 L (0.7-5.8) % Basophils % (Manual) 0 L (0.1-1.2) Platelet Estimate Adequate Microcytosis 2+ moderate Macrocytosis 2+ moderate RBC Morph Comment Not Reportable PT 10.3 (8.0-13.0) SECONDS INR 0.95 Puncture Site Lt radial ABG pH 7.44 (7.35-7.45) ABG pCO2 34.0 L (35.0-45.0) mmHg ABG pO2 94.0 (80.0-100.0) mmHg ABG HCO3 22.8 (22.0-26.0) meq/L ABG O2 Saturation 98.8 H (96.0-97.0) % ABG Base Excess -0.5 (-2-2.0) Danny Test Positive A-a Gradient 119 mmHg O2 Delivery Device Nasal cannula Oxygen Flow Rate 5.0 FiO2 0.00 L (21.00-100.00) % Sodium (136-145) mEq/L Potassium (3.5-5.1) mEq/L Chloride (98-107) mEq/L Carbon Dioxide (21-32) mEq/L Anion Gap (5-15) BUN (7-18) mg/dL Creatinine (0.55-1.02) mg/dL Est Cr Clr Drug Dosing mL/min Estimated GFR (MDRD) (>60) mL/min BUN/Creatinine Ratio (14-18) Glucose (74-106) mg/dL Lactic Acid (0.4-2.0) mmol/L Calcium (8.5-10.1) mg/dL Magnesium (1.8-2.4) mg/dl Total Bilirubin (0.2-1.0) mg/dL AST (15-37) U/L ALT (14-59) U/L Alkaline Phosphatase (46-116) U/L CK-MB (CK-2) (0-3.6) ng/ml Troponin I (0.00-0.056) ng/mL C-Reactive Protein (<1.0) mg/dL Total Protein (6.4-8.2) g/dl Albumin (3.4-5.0) g/dl Globulin gm/dL Albumin/Globulin Ratio (1-2) Urine Color (Yellow) Urine Appearance (Clear) Urine pH (5.0-8.0) Ur Specific [place] (1.005-1.030) Urine Protein (Negative) Urine Glucose (UA) (Negative) Urine Ketones (Negative) Urine Occult Blood (Negative) Urine Nitrite (Negative) Urine Bilirubin (Negative) Urine Urobilinogen (0.2-1.0) Ur Leukocyte Esterase (Negative) Urine RBC (0-5) /hpf Urine WBC (0-5) /hpf Urine WBC Clumps (NOT SEEN) /hpf Ur Epithelial Cells (0-5) /hpf Ur Squamous Epith Cells (0-5) /hpf Ur Transition Epith Cell (0-5) Urine Bacteria (FEW) /hpf Urine Mucus (FEW) /hpf 09/07/16 09/07/16 09/07/16 Range/Units 13:45 13:45 15:30 WBC (3.98-10.04) K/mm3 RBC (3.98-5.22) M/mm3 Hgb (11.2-15.7) gm/L Hct (34.1-44.9) % MCV (79.4-94.8) fl MCH (25.6-32.2) pg MCHC (32.2-35.5) g/dl RDW Std Deviation (36.4-46.3) fL Plt Count (182-369) K/mm3 MPV (9.4-12.3) fl Neutrophils % (Manual) (40-60) % Band Neutrophils % (0-10) % Lymphocytes % (Manual) (20-40) % Atypical Lymphs % % Monocytes % (Manual) (2-10) % Eosinophils % (Manual) (0.7-5.8) % Basophils % (Manual) (0.1-1.2) Platelet Estimate Microcytosis Macrocytosis RBC Morph Comment PT (8.0-13.0) SECONDS INR Puncture Site ABG pH (7.35-7.45) ABG pCO2 (35.0-45.0) mmHg ABG pO2 (80.0-100.0) mmHg ABG HCO3 (22.0-26.0) meq/L ABG O2 Saturation (96.0-97.0) % ABG Base Excess (-2-2.0) Danny Test A-a Gradient mmHg O2 Delivery Device Oxygen Flow Rate FiO2 (21.00-100.00) % Sodium 139 (136-145) mEq/L Potassium 4.0 (3.5-5.1) mEq/L Chloride 105 (98-107) mEq/L Carbon Dioxide 27 (21-32) mEq/L Anion Gap 11.0 (5-15) BUN 18 (7-18) mg/dL Creatinine 0.8 (0.55-1.02) mg/dL Est Cr Clr Drug Dosing 64.32 mL/min Estimated GFR (MDRD) > 60 (>60) mL/min BUN/Creatinine Ratio 22.5 H (14-18) Glucose 112 H (74-106) mg/dL Lactic Acid 1.8 (0.4-2.0) mmol/L Calcium 8.6 (8.5-10.1) mg/dL Magnesium 1.7 L (1.8-2.4) mg/dl Total Bilirubin 0.3 (0.2-1.0) mg/dL AST 15 (15-37) U/L ALT 18 (14-59) U/L Alkaline Phosphatase 68 (46-116) U/L CK-MB (CK-2) < 0.5 (0-3.6) ng/ml Troponin I < 0.017 (0.00-0.056) ng/mL C-Reactive Protein 10.0 H* (<1.0) mg/dL Total Protein 6.7 (6.4-8.2) g/dl Albumin 2.2 L (3.4-5.0) g/dl Globulin 4.5 gm/dL Albumin/Globulin Ratio 0.5 L (1-2) Urine Color Yellow (Yellow) Urine Appearance Cloudy H (Clear) Urine pH 7.0 (5.0-8.0) Ur Specific [place] 1.020 (1.005-1.030) Urine Protein 1+ H (Negative) Urine Glucose (UA) Negative (Negative) Urine Ketones Negative (Negative) Urine Occult Blood 1+ H (Negative) Urine Nitrite Positive H (Negative) Urine Bilirubin Negative (Negative) Urine Urobilinogen 0.2 (0.2-1.0) Ur Leukocyte Esterase 3+ H (Negative) Urine RBC 0-5 (0-5) /hpf Urine WBC >100 H (0-5) /hpf Urine WBC Clumps Moderate (NOT SEEN) /hpf Ur Epithelial Cells 10-20 H (0-5) /hpf Ur Squamous Epith Cells 10-20 H (0-5) /hpf Ur Transition Epith Cell 0-5 (0-5) Urine Bacteria Many H (FEW) /hpf Urine Mucus Few (FEW) /hpf Result Diagrams: 09/08/16 04:48 09/08/16 04:48 *Q Meaningful Use (ADM) - VTE *Q VTE Criteria *Q: - Stroke *Q Stroke Criteria *Q: - AMI *Q AMI Criteria *Q: Problem List Initiated/Reviewed/Updated: Yes Orders Last 24hrs: Active Orders 24 hr Category Date Time Status EKG Documentation Completion [RC] STAT Care 09/07/16 13:09 Active Insert Walters Catheter [Insert Urinary Catheter] [OM.PC] Care 09/07/16 13:15 Ordered Q24H Urinary Catheter Assessment [RC] ASDIRECTED Care 09/07/16 13:07 Active CULTURE BLOOD [BC] Stat Lab 09/07/16 13:45 Received CULTURE BLOOD [BC] Stat Lab 09/07/16 14:22 Received CULTURE URINE [RM] Stat Lab 09/07/16 16:16 Ordered Lactated Ringers [Ringers, Lactated] 1,000 ml Med 09/07/16 14:40 Active IV ASDIRECTED Norepinephrine [Levophed] 4 mg Med 09/07/16 13:45 Active Dextrose 5% in Water 246 ml IV TITRATE Sodium Chloride 0.9% [Normal Saline] 1,000 ml Med 09/07/16 13:15 Active IV ASDIRECTED Vancomycin 1 gm Med 09/07/16 15:53 Active Sodium Chloride 0.9% [Normal Saline] 250 ml IV ONETIME Vancomycin [Vancocin] 1 gm Med 09/07/16 15:53 Active Sodium Chloride 0.9% [Normal Saline] 250 ml IV ONETIME Blood Culture x2 Reflex Set [OM.PC] Stat Oth 09/07/16 13:05 Ordered Medication Orders Sodium Chloride (Normal Saline) 1,000 mls @ 999 mls/hr IV ASDIRECTED KHAI Last Admin: 09/07/16 13:04 Dose: 999 mls/hr Norepinephrine Bitartrate 4 mg (/ Dextrose/Water) 250 mls @ 15 mls/hr IV TITRATE KHAI; 4 MCG/MIN PRN Reason: Protocol Last Admin: 09/07/16 14:20 Dose: 4 mcg/min, 15 mls/hr Lactated Ringer's (Ringers, Lactated) 1,000 mls @ 500 mls/hr IV ASDIRECTED KHAI Last Admin: 09/07/16 14:40 Dose: 500 mls/hr Vancomycin HCl 1 gm/ Sodium (Chloride) 250 mls @ 250 mls/hr IV ONETIME ONE Stop: 09/07/16 16:52 Vancomycin HCl 1 gm/ Sodium (Chloride) 250 mls @ 250 mls/hr IV ONETIME ONE Stop: 09/07/16 16:52 Assessment/Plan Comment:: Assessment/Plan: Acute: Sepsis with Shock - Likely 2/2 Urosepsis +/- Adrenal Insufficiency given her hx/o MS form chronic steroid use - On levophed drip, titrate to maintain MAP at or > 65 mmHg - Cortisol level then 100 mg IV solucortef Q6 - Blood Culture x 2 - Start IV Zosyn for pharmacy to dose and continue IV Levaquin in am - Probiotic 250 mg po TID - Supportive Care Urinary Tract Infection - Risk Factors: Incontinence, Immobility and Possible Neurogenic Bladder - UA pos - Received Levaquin 750 mg IV x1 in ED - UA Cx/Sx Anemia - Hgb is 8.5 on admission - Baseline is 10-11 - Hemoccult test - H/H at 2000 tonight - Will monitor Leukocytosis - WBC 13.02 and CRP 10.10 - Will monitor Stage 2-3 Sacral Decubitus Ulcer - PT for wound care Need for central line access - Attempted in ED but w/o any any success - - We will try a PICC line placement by INFORMATION SECURITY ENGINEER Chronic: MS Dysphagia S/p PEG Tube Placement Constipation Recurrent UTI OA Chronic Back Pain Osteoporosis Azheimer's Disease Hx/o CVA Seizure Hx/o VTEs/DVTs Depression Insomnia Eosinophilia Chronic Debility Plan: Admit to ICU Resume Home Meds Routine AM Labs LA at 2200 PT/OT consult PT for wound care Dietray consult for PEG tube feeds SW/CM for d/c planning Code status: DNR <Luis Figueroa - Last Filed: 09/11/16 08:23> H&P History of Present Illness - General Admit Problem/Dx: Admission Diagnosis/Problem Admission Diagnosis/Problem Sepsis due to urinary tract infection Exam - Vital Signs Vital Signs: Last Vital Signs Temp 39.0 C H 09/07/16 13:02 Pulse 89 09/07/16 13:02 Resp 18 09/07/16 13:02 BP 80/44 L 09/07/16 13:02 Pulse Ox 99 09/07/16 13:02 - Patient Data Result Diagrams: 09/11/16 08:10 09/10/16 04:45 *Q Meaningful Use (ADM) - VTE *Q VTE Criteria *Q: - Stroke *Q Stroke Criteria *Q: - AMI *Q AMI Criteria *Q: Orders Last 24hrs: Active Orders 24 hr Category Date Time Status RT Aerosol Therapy [RC] ASDIRECTED Care 09/07/16 16:25 Active Consult to Case Management [CONS] Routine Cons 09/07/16 16:25 Active Consult to [employer] Manager [CONS] Routine Cons 09/07/16 16:25 Active Consult to Spiritual Care [CONS] Routine Cons 09/07/16 16:25 Active OT Evaluation and Treatment [CONS] Routine Cons 09/07/16 16:25 Active PT Evaluation and Treatment [CONS] Routine Cons 09/07/16 16:25 Active Respiratory Care Assess and Treatment [CONS] Routine Cons 09/07/16 16:25 Active Chest 1V Frontal [CR] Routine Exams 09/07/16 16:45 Ordered Chest 1V Frontal [CR] Stat Exams 09/07/16 16:50 Ordered BASIC METABOLIC PANEL,BMP [CHEM] AM Lab 09/08/16 05:11 Ordered BASIC METABOLIC PANEL,BMP [CHEM] AM Lab 09/09/16 05:11 Ordered BASIC METABOLIC PANEL,BMP [CHEM] AM Lab 09/10/16 05:11 Ordered BASIC METABOLIC PANEL,BMP [CHEM] AM Lab 09/11/16 05:11 Ordered C-REACTIVE PROTEIN [CHEM] AM Lab 09/08/16 05:11 Ordered C-REACTIVE PROTEIN [CHEM] AM Lab 09/09/16 05:11 Ordered C-REACTIVE PROTEIN [CHEM] AM Lab 09/10/16 05:11 Ordered C-REACTIVE PROTEIN [CHEM] AM Lab 09/11/16 05:11 Ordered CORTISOL [REF] Stat Lab 09/07/16 14:22 Received MAGNESIUM [CHEM] AM Lab 09/08/16 05:11 Ordered MAGNESIUM [CHEM] AM Lab 09/09/16 05:11 Ordered MAGNESIUM [CHEM] AM Lab 09/10/16 05:11 Ordered MAGNESIUM [CHEM] AM Lab 09/11/16 05:11 Ordered Dextrose 5%-0.9% NaCl [Dextrose 5%-Normal Saline] 1,000 Med 09/07/16 16:45 Active ml IV ASDIRECTED Hydrocortisone Sod Succinate [Solu-CORTEF] Med 09/07/16 17:00 Active 100 mg IVPUSH Q6H Piperacillin/Tazobactam [Zosyn] 4.5 gm Med 09/07/16 17:00 Active Sodium Chloride 0.9% [Normal Saline] 100 ml IV ONETIME Piperacillin/Tazobactam [Zosyn] 4.5 gm Med 09/07/16 23:00 Active Sodium Chloride 0.9% [Normal Saline] 100 ml IV Q8H Medication Orders Acetaminophen (Tylenol) 650 mg PO Q4H PRN PRN Reason: Pain (Mild 1-3)/fever Hydrocodone Bitart/Acetaminophen ([place] 325-5 Mg) 1 tab PO Q4H PRN PRN Reason: Pain (moderate 4-6) Albuterol/Ipratropium (Duoneb 3.0-0.5 Mg/3 Ml) 3 ml NEB Q4H PRN PRN Reason: Shortness Of Breath/wheezing Bisacodyl (Dulcolax) 5 mg PO DAILY PRN PRN Reason: Constipation Docusate Sodium (Colace) 100 mg PO BID PRN PRN Reason: Constipation Enoxaparin Sodium (Lovenox) 40 mg SUBCUT DAILY KHAI Hydrocortisone Sodium Succinate (Solu-Cortef) 100 mg IVPUSH Q6H KHAI Hydromorphone HCl (Dilaudid) 0.25 mg IVPUSH Q2H PRN PRN Reason: Pain (severe 7-10) Sodium Chloride (Normal Saline) 1,000 mls @ 999 mls/hr IV ASDIRECTED KHAI Last Admin: 09/07/16 13:04 Dose: 999 mls/hr Norepinephrine Bitartrate 4 mg (/ Dextrose/Water) 250 mls @ 15 mls/hr IV TITRATE KHAI; 4 MCG/MIN PRN Reason: Protocol Last Admin: 09/07/16 14:20 Dose: 4 mcg/min, 15 mls/hr Lactated Ringer's (Ringers, Lactated) 1,000 mls @ 500 mls/hr IV ASDIRECTED KHAI Last Admin: 09/07/16 14:40 Dose: 500 mls/hr Vancomycin HCl 1 gm/ Sodium (Chloride) 250 mls @ 250 mls/hr IV ONETIME ONE Stop: 09/07/16 16:52 Vancomycin HCl 1 gm/ Sodium (Chloride) 250 mls @ 250 mls/hr IV ONETIME ONE Stop: 09/07/16 16:52 Last Admin: 09/07/16 16:36 Dose: 100 mls/hr Promethazine HCl 12.5 mg/ (Sodium Chloride) 50.5 mls @ 100 mls/hr IV Q6H PRN PRN Reason: Nausea/Vomiting Piperacillin Sod/Tazobactam (Sod 4.5 gm/ Sodium Chloride) 100 mls @ 25 mls/hr IV Q8H KHAI Dextrose/Sodium Chloride (Dextrose 5%-Normal Saline) 1,000 mls @ 100 mls/hr IV ASDIRECTED KHAI Piperacillin Sod/Tazobactam (Sod 4.5 gm/ Sodium Chloride) 100 mls @ 200 mls/hr IV ONETIME ONE Stop: 09/07/16 17:29 Lorazepam (Ativan) 1 mg IV Q6H PRN PRN Reason: Anxiety Ondansetron HCl (Zofran) 4 mg IV Q6H PRN PRN Reason: Nausea/Vomiting Polyethylene Glycol (Miralax) 17 gm PO DAILY PRN PRN Reason: Constipation Senna/Docusate Sodium (Senna Plus) 1 tab PO BID PRN PRN Reason: Constipation Temazepam (Restoril) 15 mg PO BEDTIME PRN PRN Reason: Sleep
[2016-09-07] MEDS ORDERED: Acetaminophen 325 MG Tab PO PRN (16:23)
[2016-09-07] MEDS ORDERED: Docusate Sodium 100 MG Cap PO PRN (16:23)
[2016-09-07] MEDS ORDERED: Promethazine 12.5 MG in Sodium Chloride 0.9% 50 ML IV PRN (16:23)
[2016-09-07] MEDS ORDERED: Albuterol/Ipratropium 3.0-0.5 MG/3 ML Neb Soln NEB PRN (16:23)
[2016-09-07] MEDS ORDERED: HYDROmorphone 0.5 MG/0.5 ML Syringe IVPUSH PRN (16:23)
[2016-09-07] MEDS ORDERED: Temazepam 15 MG Cap PO PRN (16:23)
[2016-09-07] MEDS ORDERED: Ondansetron 4 MG/2 ML SDV IV PRN (16:23)
[2016-09-07] MEDS ORDERED: Bisacodyl 5 MG Tab PO PRN (16:23)
[2016-09-07] MEDS ORDERED: Acetaminophen/HYDROcodone 325-5 MG Tab PO PRN (16:23)
[2016-09-07] MEDS ORDERED: Polyethylene Glycol 3350 Powder 17 GM Packet PO PRN (16:23)
[2016-09-07] MEDS ORDERED: Dextrose 5%-0.9% NaCl 1,000 ML IV SCH (16:45)
[2016-09-07] MEDS ORDERED: Furosemide 40 MG/4 ML VIAL IVPUSH ONE (16:53)
[2016-09-07] MEDS ORDERED: Piperacillin/Tazobactam 4.5 GM in Sodium Chloride 0.9% 100 ML IV ONE (17:00)
[2016-09-07] MEDS: Furosemide 100 MG/10 ML SDV ONE ×3 (17:13→18:25)
[2016-09-07] MEDS ORDERED: Baclofen 10 MG Tab GTUBE ONE (17:22)
--- NOTE | 2016-09-07 17:48 | CR ---
Chest: Frontal view of the chest was obtained. Comparison: Previous chest x-ray performed earlier on the same date (time 1:48 PM). Heart size and mediastinum are within normal limits. Lungs are clear. Bony structures are grossly intact. Impression: 1. Nothing acute is seen on frontal chest x-ray. No significant change is seen from prior chest x-ray. Diagnostic code #1
--- NOTE | 2016-09-07 20:10 | PCM.PRNOTE ---
- Free Text/Narrative Note: 6-15- Start 1829 End 1944 Ultrasound guided PICC placement Called from ICU staff regarding a septic patient on vasopressor support without a central line. Multiple attempts were made for central venous access in ED with no success per ED physician. Order per Dr Skelton. Chart reviewed. Patient family educated. Patient had received multiple doses of sedation in ED and was sedated for the consent and procedure. Family agreed to proceed. Consent signed. Site cleansed with ChloraPrep. Lidocaine 1% local anesthetic injected prior to 20ga IV catheter insertion using ultrasound guidance. Sterile gown, gloves and drape used. Masks worn by all personnel in room. 5fr [place] NXT ClearVue double lumen PICC inserted 44cm per sterile technique at proximal left antecubital. Secured with statlock. Flushes well with NaCl with good blood return. Dressed with opsite with CHG. 2cm PICC catheter remains out for measurement purposes. Chest Xray taken. Confirmed SCV placement per radiologist. Josh Marie C[employer] SUPERVISOR
[2016-09-07] MEDS ORDERED: Saccharomyces Boulardii (Probiotic) 250 MG Cap PO SCH (21:00)
[2016-09-07] MEDS ORDERED: hydrALAZINE 20 MG/ML SDV IVPUSH PRN (21:17)
[2016-09-07] MEDS ORDERED: Magnesium Sulfate/Water 50 ML IV ONE (21:30)
[2016-09-07] MEDS: Hydrocortisone Sodium Succinate 100 MG/2 ML SDV IVPUSH SCH ×2 (22:03→23:25)
[2016-09-07] MEDS: Piperacillin/Tazobactam 4.5 GM in Sodium Chloride 0.9% 100 ML IV SCH (22:03)
[2016-09-07] MEDS: Metoprolol Tartrate 5 MG/5 ML SDV IVPUSH PRN (22:04)
[2016-09-07] MEDS: Potassium Chloride 10 MEQ in Premix Bag 1 BAG IV SCH (23:25)
[2016-09-08] MEDS: Potassium Chloride 10 MEQ in Premix Bag 1 BAG IV SCH ×2 (00:40→02:04)
[2016-09-08] MEDS: Hydrocortisone Sodium Succinate 100 MG/2 ML SDV IVPUSH SCH ×4 (05:35→23:43)
[2016-09-08] MEDS: Piperacillin/Tazobactam 4.5 GM in Sodium Chloride 0.9% 100 ML IV SCH ×3 (06:45→23:43)
--- NOTE | 2016-09-08 07:27 | PCM.PN ---
- General Info Date of Service: 09/08/16 Admission Dx/Problem (Free Text): Septic Shock and UTI Subjective Update: Follow Up Functional Status: Reports: pain controlled, urinating. Denies: new symptoms - Review of Systems General: Denies: Fever, Weakness, Fatigue, Malaise, Chills HEENT: Reports: no symptoms Pulmonary: Denies: shortness of breath Cardiovascular: Denies: Chest Pain Gastrointestinal: Denies: Abdominal pain, Nausea, Vomiting Genitourinary: Reports: no symptoms Musculoskeletal: Reports: no symptoms Neurological: Reports: Difficulty Walking, Gait Disturbance. Denies: Confusion Psychiatric: Denies: depression, anxiety, agitation Systems Review Comment:: No significant overnight issues. She is alert and awake this morning. She respond to simple questions. - Patient Data Vitals - most recent: Last Vital Signs Temp 37.6 C 09/08/16 03:40 Pulse 92 09/08/16 06:53 Resp 20 09/08/16 06:53 BP 90/67 09/08/16 06:53 Pulse Ox 98 09/08/16 06:53 Weight - most recent: 72.212 kg I&O - last 24 hours: Intake & Output 09/07/16 09/08/16 09/08/16 22:59 06:59 14:59 Intake Total 1600 Output Total 1930 1400 Balance -1930 200 Lab Results last 24 hrs: Laboratory Results - last 24 hr 09/07/16 09/07/16 09/07/16 Range/Units 21:00 21:00 21:00 WBC (3.98-10.04) K/mm3 RBC (3.98-5.22) M/mm3 Hgb 11.6 (11.2-15.7) gm/L Hct 35.8 (34.1-44.9) % MCV (79.4-94.8) fl MCH (25.6-32.2) pg MCHC (32.2-35.5) g/dl RDW Std Deviation (36.4-46.3) fL Plt Count (182-369) K/mm3 MPV (9.4-12.3) fl Neut % (Auto) (34.0-71.1) % Lymph % (Auto) (19.3-51.7) % [place] % (Auto) (4.7-12.5) % Eos % (Auto) (0.7-5.8) Baso % (Auto) (0.1-1.2) % Neut # (Auto) (1.56-6.13) K/mm3 Lymph # (Auto) (1.18-3.74) K/mm3 [place] # (Auto) (0.24-0.36) K/mm3 Eos # (Auto) (0.04-0.36) K/mm3 Baso # (Auto) (0.01-0.08) K/mm3 Manual Slide Review Sodium 141 (136-145) mEq/L Potassium 3.2 L (3.5-5.1) mEq/L Chloride 103 (98-107) mEq/L Carbon Dioxide 28 (21-32) mEq/L Anion Gap 13.2 (5-15) BUN 16 (7-18) mg/dL Creatinine 1.1 H (0.55-1.02) mg/dL Est Cr Clr Drug Dosing 46.78 mL/min Estimated GFR (MDRD) 52 (>60) mL/min BUN/Creatinine Ratio 14.5 (14-18) Glucose 129 H (74-106) mg/dL Lactic Acid (0.4-2.0) mmol/L Calcium 9.1 (8.5-10.1) mg/dL Magnesium 1.3 L (1.8-2.4) mg/dl C-Reactive Protein (<1.0) mg/dL B-Natriuretic Peptide 71 (0-100) pg/mL MRSA (PCR) 09/07/16 09/08/16 09/08/16 Range/Units 22:00 01:35 04:48 WBC 19.86 H (3.98-10.04) K/mm3 RBC 3.84 L (3.98-5.22) M/mm3 Hgb 11.1 L (11.2-15.7) gm/L Hct 34.5 (34.1-44.9) % MCV 89.8 (79.4-94.8) fl MCH 28.9 (25.6-32.2) pg MCHC 32.2 (32.2-35.5) g/dl RDW Std Deviation 55.1 H (36.4-46.3) fL Plt Count 295 (182-369) K/mm3 MPV 9.9 (9.4-12.3) fl Neut % (Auto) 91.3 H (34.0-71.1) % Lymph % (Auto) 3.7 L (19.3-51.7) % [place] % (Auto) 4.5 L (4.7-12.5) % Eos % (Auto) 0.1 L (0.7-5.8) Baso % (Auto) 0.1 (0.1-1.2) % Neut # (Auto) 18.17 H (1.56-6.13) K/mm3 Lymph # (Auto) 0.73 L (1.18-3.74) K/mm3 [place] # (Auto) 0.89 H (0.24-0.36) K/mm3 Eos # (Auto) 0.01 L (0.04-0.36) K/mm3 Baso # (Auto) 0.01 (0.01-0.08) K/mm3 Manual Slide Review Normal smear Sodium (136-145) mEq/L Potassium (3.5-5.1) mEq/L Chloride (98-107) mEq/L Carbon Dioxide (21-32) mEq/L Anion Gap (5-15) BUN (7-18) mg/dL Creatinine (0.55-1.02) mg/dL Est Cr Clr Drug Dosing mL/min Estimated GFR (MDRD) (>60) mL/min BUN/Creatinine Ratio (14-18) Glucose (74-106) mg/dL Lactic Acid 2.6 H (0.4-2.0) mmol/L Calcium (8.5-10.1) mg/dL Magnesium (1.8-2.4) mg/dl C-Reactive Protein (<1.0) mg/dL B-Natriuretic Peptide (0-100) pg/mL MRSA (PCR) Negative 09/08/16 Range/Units 04:48 WBC (3.98-10.04) K/mm3 RBC (3.98-5.22) M/mm3 Hgb (11.2-15.7) gm/L Hct (34.1-44.9) % MCV (79.4-94.8) fl MCH (25.6-32.2) pg MCHC (32.2-35.5) g/dl RDW Std Deviation (36.4-46.3) fL Plt Count (182-369) K/mm3 MPV (9.4-12.3) fl Neut % (Auto) (34.0-71.1) % Lymph % (Auto) (19.3-51.7) % [place] % (Auto) (4.7-12.5) % Eos % (Auto) (0.7-5.8) Baso % (Auto) (0.1-1.2) % Neut # (Auto) (1.56-6.13) K/mm3 Lymph # (Auto) (1.18-3.74) K/mm3 [place] # (Auto) (0.24-0.36) K/mm3 Eos # (Auto) (0.04-0.36) K/mm3 Baso # (Auto) (0.01-0.08) K/mm3 Manual Slide Review Sodium 140 (136-145) mEq/L Potassium 4.2 (3.5-5.1) mEq/L Chloride 104 (98-107) mEq/L Carbon Dioxide 29 (21-32) mEq/L Anion Gap 11.2 (5-15) BUN 14 (7-18) mg/dL Creatinine 1.1 H (0.55-1.02) mg/dL Est Cr Clr Drug Dosing 46.78 mL/min Estimated GFR (MDRD) 52 (>60) mL/min BUN/Creatinine Ratio 12.7 L (14-18) Glucose 211 H (74-106) mg/dL Lactic Acid (0.4-2.0) mmol/L Calcium 9.4 (8.5-10.1) mg/dL Magnesium 2.8 H (1.8-2.4) mg/dl C-Reactive Protein 21.9 H* (<1.0) mg/dL B-Natriuretic Peptide (0-100) pg/mL MRSA (PCR) Med Orders - Current: Current Medications Acetaminophen (Tylenol) 650 mg PO Q4H PRN PRN Reason: Pain (Mild 1-3)/fever Hydrocodone Bitart/Acetaminophen ([place] 325-5 Mg) 1 tab PO Q4H PRN PRN Reason: Pain (moderate 4-6) Albuterol/Ipratropium (Duoneb 3.0-0.5 Mg/3 Ml) 3 ml NEB Q4H PRN PRN Reason: Shortness Of Breath/wheezing Bisacodyl (Dulcolax) 5 mg PO DAILY PRN PRN Reason: Constipation Docusate Sodium (Colace) 100 mg PO BID PRN PRN Reason: Constipation Enoxaparin Sodium (Lovenox) 40 mg SUBCUT DAILY KHAI Hydralazine HCl (Apresoline) 20 mg IVPUSH Q4H PRN PRN Reason: Hypertension Hydrocortisone Sodium Succinate (Solu-Cortef) 100 mg IVPUSH Q6H KHAI Last Admin: 09/08/16 05:35 Dose: 100 mg Hydromorphone HCl (Dilaudid) 0.25 mg IVPUSH Q2H PRN PRN Reason: Pain (severe 7-10) Sodium Chloride (Normal Saline) 1,000 mls @ 999 mls/hr IV ASDIRECTED [facility] Last Admin: 09/07/16 13:04 Dose: 999 mls/hr Norepinephrine Bitartrate 4 mg (/ Dextrose/Water) 250 mls @ 15 mls/hr IV TITRATE KHAI; 4 MCG/MIN PRN Reason: Protocol Last Titration: 09/08/16 05:46 Dose: 3 mcg/min, 11.25 mls/hr Lactated Ringer's (Ringers, Lactated) 1,000 mls @ 50 mls/hr IV ASDIRECTED [facility] Last Infusion: 09/07/16 16:36 Dose: 25 mls/hr Promethazine HCl 12.5 mg/ (Sodium Chloride) 50.5 mls @ 100 mls/hr IV Q6H PRN PRN Reason: Nausea/Vomiting Piperacillin Sod/Tazobactam (Sod 4.5 gm/ Sodium Chloride) 100 mls @ 25 mls/hr IV Q8H [facility] Last Admin: 09/08/16 06:45 Dose: 25 mls/hr Levofloxacin/Dextrose 500 mg/ (Premix) 100 mls @ 100 mls/hr IV Q24H KHAI Lorazepam (Ativan) 1 mg IV Q6H PRN PRN Reason: Anxiety Magnesium Sulfate (Pharmacy To Dose - Magnesium Replacement) 1 dose .XX ASDIRECTED [facility] Metoprolol Tartrate (Lopressor) 5 mg IVPUSH Q4H PRN PRN Reason: Tachycardia Last Admin: 09/07/16 22:04 Dose: 5 mg Ondansetron HCl (Zofran) 4 mg IV Q6H PRN PRN Reason: Nausea/Vomiting Polyethylene Glycol (Miralax) 17 gm PO DAILY PRN PRN Reason: Constipation Potassium Chloride (Pharmacy To Dose - Potassium Replacement) 1 dose .XX ASDIRECTED KHAI Saccharomyces Boulardii (Florastor) 250 mg PO BID KHAI Senna/Docusate Sodium (Senna Plus) 1 tab PO BID PRN PRN Reason: Constipation Temazepam (Restoril) 15 mg PO BEDTIME PRN PRN Reason: Sleep Discontinued Medications Baclofen (Lioresal) 30 mg GTUBE ONETIME ONE Stop: 09/07/16 17:23 Last Admin: 09/07/16 21:55 Dose: Not Given Etomidate (Amidate) Confirm Administered Dose 40 mg IVPUSH .STK-MED ONE Stop: 09/07/16 14:17 Last Admin: 09/07/16 15:58 Dose: Not Given Etomidate (Amidate) 15 mg IVPUSH ONETIME ONE Stop: 09/07/16 14:19 Last Admin: 09/07/16 14:18 Dose: 15 mg Etomidate (Amidate) 30 mg IVPUSH ONETIME ONE Stop: 09/07/16 15:01 Last Admin: 09/07/16 15:00 Dose: 30 mg Fentanyl (Sublimaze) Confirm Administered Dose 100 mcg .ROUTE .STK-MED ONE Stop: 09/07/16 14:33 Last Admin: 09/07/16 15:59 Dose: Not Given Fentanyl (Sublimaze) 100 mcg IVPUSH ONETIME ONE Stop: 09/07/16 14:31 Last Admin: 09/07/16 14:30 Dose: 100 mcg Furosemide (Lasix) 40 mg IVPUSH NOW ONE Stop: 09/07/16 16:54 Last Admin: 09/07/16 17:16 Dose: Not Given Furosemide (Lasix) Confirm Administered Dose 100 mg .ROUTE .STK-MED ONE Stop: 09/07/16 16:57 Last Admin: 09/07/16 18:25 Dose: Not Given Sodium Chloride (Normal Saline) Confirm Administered Dose 1,000 mls @ as directed .ROUTE .STK-MED ONE Stop: 09/07/16 13:07 Last Admin: 09/07/16 13:15 Dose: Not Given Lactated Ringer's (Ringers, Lactated) 1,000 mls @ 999 mls/hr IV .BOLUS ONE Stop: 09/07/16 14:11 Last Admin: 09/07/16 13:13 Dose: 999 mls/hr Levofloxacin/Dextrose 750 mg/ (Premix) 150 mls @ 100 mls/hr IV ONETIME ONE Stop: 09/07/16 14:57 Last Admin: 09/07/16 13:45 Dose: 100 mls/hr Vancomycin HCl 1 gm/ Sodium (Chloride) 250 mls @ 250 mls/hr IV ONETIME ONE Stop: 09/07/16 16:52 Last Admin: 09/07/16 18:25 Dose: Not Given Vancomycin HCl 1 gm/ Sodium (Chloride) 250 mls @ 250 mls/hr IV ONETIME ONE Stop: 09/07/16 16:52 Last Admin: 09/07/16 16:36 Dose: 100 mls/hr Dextrose/Sodium Chloride (Dextrose 5%-Normal Saline) 1,000 mls @ 100 mls/hr IV ASDIRECTED [facility] [place] Last Admin: 09/07/16 18:26 Dose: 100 mls/hr Piperacillin Sod/Tazobactam (Sod 4.5 gm/ Sodium Chloride) 100 mls @ 200 mls/hr IV ONETIME ONE Stop: 09/07/16 17:29 Last Admin: 09/07/16 18:26 Dose: 200 mls/hr Magnesium Sulfate (Magnesium Sulfate 2 Gm In Water 50 Ml) 50 mls @ 50 mls/hr IV ONETIME ONE Stop: 09/07/16 22:29 Last Admin: 09/07/16 23:25 Dose: 50 mls/hr Potassium Chloride 10 meq/ (Premix) 100 mls @ 100 mls/hr IV Q1H [facility] Stop: 09/08/16 03:14 Last Admin: 09/08/16 02:04 Dose: 100 mls/hr Midazolam HCl (Versed 1 Mg/Ml) Confirm Administered Dose 2 mg .ROUTE .STK-MED ONE Stop: 09/07/16 14:11 Last Admin: 09/07/16 15:59 Dose: Not Given Midazolam HCl (Versed 1 Mg/Ml) 2 mg IVPUSH ONETIME ONE Stop: 09/07/16 14:16 Last Admin: 09/07/16 14:15 Dose: 2 mg Midazolam HCl (Versed 1 Mg/Ml) 2 mg IVPUSH ONETIME ONE Stop: 09/07/16 14:32 Last Admin: 09/07/16 14:31 Dose: 2 mg Ondansetron HCl (Zofran) 4 mg IVPUSH ONETIME ONE Stop: 09/07/16 13:41 Last Admin: 09/07/16 13:50 Dose: 4 mg Saccharomyces Boulardii (Florastor) 250 mg PO TID KHAI Last Admin: 09/07/16 22:22 Dose: Not Given - Exam General: alert, no acute distress HEENT: Pupils equal, Pupils reactive Neck: no JVD Lungs: Normal respiratory effort, Decreased breath sounds Cardiovascular: Regular Rhythm, Tachycardia Abdomen: bowel sounds present, soft, no tenderness, distension (mild), other ( PEG tube present) (Female) Exam: Deferred (indwelling walters catheter) Back Exam: Normal Inspection, Decreased Range of Motion Extremities: no edema, normal pulses, no tenderness/swelling, no clubbing, no cyanosis, no calf tenderness Peripheral Pulses: 2+: Dorsalis Pedis (L), Dorsalis Pedis (R) Skin: warm, dry, intact Neurological: no new focal deficit Psy/Mental Status: alert, normal affect, normal mood - Problem List Review Problem List Initiated/Reviewed/Updated: Yes - My Orders Last 24 Hours: My Active Orders 09/07/16 14:22 CORTISOL [REF] Stat 09/07/16 16:23 Resuscitation Status Routine 09/07/16 16:25 RT Aerosol Therapy [RC] ASDIRECTED Consult to Case Management [CONS] Routine Consult to Community Pharmacist [CONS] Routine Consult to Spiritual Care [CONS] Routine OT Evaluation and Treatment [CONS] Routine PT Evaluation and Treatment [CONS] Routine Respiratory Care Assess and Treatment [CONS] Routine 09/07/16 17:00 Hydrocortisone Sod Succinate [Solu-CORTEF] 100 mg IVPUSH Q6H 09/07/16 19:33 OR PCXR-No Charge-PICC/Central [CR] Routine 09/07/16 19:54 OR PCXR-No Charge-PICC/Central [CR] Routine OR PCXR-No Charge-PICC/Central [CR] Routine OR PCXR-No Charge-PICC/Central [CR] Routine 09/07/16 19:55 OR PCXR-No Charge-PICC/Central [CR] Routine 09/07/16 21:00 Consult to Dietary [Consult to Crm Marketing Manager] [CONS] Routine 09/07/16 21:05 Hemoccult [OCCULT BLOOD DIAGNOSTIC] [OP] Routine 09/07/16 21:17 Metoprolol Tartrate [Lopressor] 5 mg IVPUSH Q4H PRN hydrALAZINE [Apresoline] 20 mg IVPUSH Q4H PRN 09/07/16 21:30 Magnesium Rep Pharmacy to Dose [Pharmacy to Dose - Magnesium Replacement] 1 dose .XX ASDIRECTED Potassium Rep Pharmacy to Dose [Pharmacy to Dose - Potassium Replacement] 1 dose .XX ASDIRECTED 09/07/16 23:00 Piperacillin/Tazobactam [Zosyn] 4.5 gm Sodium Chloride 0.9% [Normal Saline] 100 ml IV Q8H 09/08/16 09:00 Levofloxacin/Dextrose 5%-Water [Levaquin in D5W 500 MG/100 ML] 500 mg Premix Bag 1 bag IV Q24H Saccharomyces Boulardii [Florastor] 250 mg PO BID 09/09/16 05:11 BASIC METABOLIC PANEL,BMP [CHEM] AM C-REACTIVE PROTEIN [CHEM] AM MAGNESIUM [CHEM] AM 09/10/16 05:11 BASIC METABOLIC PANEL,BMP [CHEM] AM C-REACTIVE PROTEIN [CHEM] AM MAGNESIUM [CHEM] AM 09/11/16 05:11 BASIC METABOLIC PANEL,BMP [CHEM] AM C-REACTIVE PROTEIN [CHEM] AM MAGNESIUM [CHEM] AM - Plan Plan:: Assessment/Plan: Acute: Sepsis with Shock - Likely 2/2 Urosepsis +/- Adrenal Insufficiency given her hx/o MS form chronic steroid use - On levophed drip, titrate to maintain MAP at or > 65 mmHg, continue pressor - Cortisol level then 100 mg IV solucortef Q6 - Blood Culture x 2: negative so far - Start IV Zosyn for pharmacy to dose and continue IV levaquin - Probiotic 250 mg po TID - Supportive Care Urinary Tract Infection - Risk Factors: Incontinence, Immobility and Possible Neurogenic Bladder - UA pos GNR - Received Levaquin 750 mg IV x1 in ED - UA Cx/Sx Anemia - Hgb is 8.5 on admission, now is 11 - Baseline is 10-11 - H/H at 2000 tonight: 11.6/35.8 - Likely hemodilution Leukocytosis - WBC 13.02---> 91.86 and CRP 10.10 ---> 21.19 - Treat underlying cause above Stage 2-3 Sacral Decubitus Ulcer - Continue PT for wound care Need for central line access - Attempted in ED but w/o any any success - - S/p PICC line placement by B[employer]ING [employer] OPERATOR - Stable Chronic: MS Dysphagia S/p PEG Tube Placement Constipation Recurrent UTI OA Chronic Back Pain Osteoporosis Azheimer's Disease Hx/o CVA Seizure Hx/o VTEs/DVTs Depression Insomnia Eosinophilia Chronic Debility Plan: She is still hemodynamically unstable Continue current treatment Start tube feed as soon as possible Routine AM Labs Continue PT/OT Dietary consult for PEG tube feeds SW/AMOL for d/c planning Code status: DNR
[2016-09-08] MEDS ORDERED: Acetaminophen 325 MG Tab PO PRN (07:44)
[2016-09-08] MEDS ORDERED: Lactulose Soln 10 GM/15 ML 30 ML UD Cup PO PRN (08:15)
--- NOTE | 2016-09-08 08:42 | CR ---
Chest: Frontal view of the chest was obtained centered to the left side. Exam time is 7:22 PM. Comparison: Previous chest x-ray performed earlier on the same day (4:44 PM). Left-sided PICC line is seen curled within the left subclavian vein extending down the thoracic vein. Atelectasis is noted within the right lung base. Impression: 1. Abnormal position of left-sided PICC line as described above. Diagnostic code #3
--- NOTE | 2016-09-08 08:42 | CR ---
Chest: Frontal view of the left side of the chest was obtained. Time of exam is 7:23 PM. Comparison: Previous chest x-ray performed earlier on the same day (7:22 PM). PICC line has been withdrawn and loop of catheter down the thoracic vein has been corrected. Persistent atelectasis within the right lung base is seen. Impression: 1. Repositioning of PICC line as noted above. Diagnostic code #2
--- NOTE | 2016-09-08 08:42 | CR ---
Chest: Frontal view of the chest was obtained centered to the left chest. Time of exam is 7:25 PM. Comparison: Previous chest x-ray performed earlier on the same day (7:24 PM). PICC line has been advanced. Tip lies at the region of the superior vena cava and right atrial junction in satisfactory position. Increased density presumably due to atelectasis seen within the right lung base. Left lung is clear. Impression: 1. Satisfactory position of PICC line. 2. Presumed persistent atelectasis within the right lung base. Diagnostic code #2
--- NOTE | 2016-09-08 08:42 | CR ---
Chest: Frontal view of the chest was obtained centered to the left side. Time of exam is 7:26 PM. Comparison: Previous chest x-ray performed earlier on the same day (7:25 PM). PICC line has been advanced into the right atrium. Other portions of the exam remain unchanged. Impression: 1. Tip of PICC line within the right atrium. Diagnostic code #3 Agree with preliminary report issued by [facility] ([facility] preliminary report dictated on 09/07/16, 9:23 PM Central Time)
--- NOTE | 2016-09-08 08:42 | CR ---
Chest: Frontal view of the chest was obtained centered to the left side. Time of exam is 7:24 PM Comparison: Previous chest x-ray performed on the same day (7:23 PM). PICC line has been advanced and lies within the left brachiocephalic vein. Chest is otherwise unchanged. Impression: 1. PICC line within the left brachiocephalic vein. Diagnostic code #2
[2016-09-08] MEDS: Saccharomyces Boulardii (Probiotic) 250 MG Cap PO SCH ×2 (09:07→20:58)
[2016-09-08] MEDS: Multivitamins,Therapeutic Tab PO SCH (09:07)
[2016-09-08] MEDS: levETIRAcetam 500 MG Tab PO SCH ×2 (09:08→20:56)
[2016-09-08] MEDS: tiZANidine 4 MG Tab PO SCH ×3 (09:09→20:57)
[2016-09-08] MEDS: LORazepam 0.5 MG Tab PO SCH ×2 (09:09→20:57)
[2016-09-08] MEDS: FLUoxetine 10 MG Cap PO SCH (09:10)
[2016-09-08] MEDS: Cholecalciferol (Vitamin D3) 1,000 Unit Tab PO SCH (09:10)
[2016-09-08] MEDS: Enoxaparin 40 MG/0.4 ML Syringe SUBCUT SCH (09:11)
[2016-09-08] MEDS: Baclofen 10 MG Tab PO SCH ×3 (09:11→20:56)
[2016-09-08] MEDS: Nystatin Crm 30 GM Tube TOP SCH ×2 (09:12→20:58)
[2016-09-08] MEDS: Levofloxacin/Dextrose 5%-Water 500 MG in Premix Bag 1 BAG IV SCH (09:12)
[2016-09-08] MEDS: Norepinephrine 4 MG in Dextrose 5% in Water 246 ML IV SCH ×2 (10:35)
[2016-09-08] MEDS: Lactated Ringers 1,000 ML IV SCH (17:06)
[2016-09-08] MEDS: Magnesium Oxide 400 MG Tab PO SCH (17:51)
[2016-09-08] MEDS: LORazepam 2 MG/ML MDV IV PRN (18:22)
[2016-09-09] MEDS: Hydrocortisone Sodium Succinate 100 MG/2 ML SDV IVPUSH SCH ×4 (05:55→22:02)
[2016-09-09] MEDS: Piperacillin/Tazobactam 4.5 GM in Sodium Chloride 0.9% 100 ML IV SCH ×2 (06:10→15:58)
--- NOTE | 2016-09-09 07:14 | PCM.PN ---
- General Info Date of Service: 09/09/16 Admission Dx/Problem (Free Text): Septic Shock and UTI Subjective Update: Follow Up Functional Status: Reports: pain controlled, tolerating diet, urinating. Denies : ambulating, new symptoms - Review of Systems General: Denies: Fever, Chills HEENT: Reports: no symptoms Pulmonary: Denies: shortness of breath Cardiovascular: Denies: Chest Pain Gastrointestinal: Denies: Abdominal pain, Nausea, Vomiting Genitourinary: Reports: no symptoms Musculoskeletal: Reports: no symptoms Skin: Denies: cyanosis, jaundice, rash Neurological: Reports: Difficulty Walking, Weakness, Gait Disturbance. Denies: Confusion, Pre-Existing Deficit Psychiatric: Denies: depression, anxiety, agitation, hallucinations Systems Review Comment:: No significant overnight or acute issues. She is still on levophed at 1 mcg/hr. She slept swell. - Patient Data Vitals - most recent: Last Vital Signs Temp 36.8 C 09/09/16 04:00 Pulse 58 L 09/09/16 05:00 Resp 17 09/09/16 05:00 BP 105/65 09/09/16 05:00 Pulse Ox 93 L 09/09/16 05:00 Weight - most recent: 74.661 kg I&O - last 24 hours: Intake & Output 09/08/16 09/09/16 09/09/16 22:59 06:59 14:59 Intake Total 1790 1950 Output Total 425 600 Balance 1365 1350 Lab Results last 24 hrs: Laboratory Results - last 24 hr 09/08/16 09/09/16 Range/Units 08:20 05:24 WBC 13.62 H (3.98-10.04) K/mm3 RBC 3.55 L (3.98-5.22) M/mm3 Hgb 10.2 L (11.2-15.7) gm/L Hct 31.9 L (34.1-44.9) % MCV 89.9 (79.4-94.8) fl MCH 28.7 (25.6-32.2) pg MCHC 32.0 L (32.2-35.5) g/dl RDW Std Deviation 54.4 H (36.4-46.3) fL Plt Count 254 (182-369) K/mm3 MPV 10.3 (9.4-12.3) fl Neut % (Auto) 83.7 H (34.0-71.1) % Lymph % (Auto) 9.8 L (19.3-51.7) % [place] % (Auto) 6.1 (4.7-12.5) % Eos % (Auto) 0 L (0.7-5.8) Baso % (Auto) 0.1 (0.1-1.2) % Neut # (Auto) 11.40 H (1.56-6.13) K/mm3 Lymph # (Auto) 1.34 (1.18-3.74) K/mm3 [place] # (Auto) 0.83 H (0.24-0.36) K/mm3 Eos # (Auto) 0.00 L (0.04-0.36) K/mm3 Baso # (Auto) 0.01 (0.01-0.08) K/mm3 Lactic Acid 1.0 (0.4-2.0) mmol/L Med Orders - Current: Current Medications Acetaminophen (Tylenol) 650 mg PO Q4H PRN PRN Reason: Pain (Mild 1-3)/fever Hydrocodone Bitart/Acetaminophen ([place] 325-5 Mg) 1 tab PO Q4H PRN PRN Reason: Pain (moderate 4-6) Albuterol/Ipratropium (Duoneb 3.0-0.5 Mg/3 Ml) 3 ml NEB Q4H PRN PRN Reason: Shortness Of Breath/wheezing Baclofen (Lioresal) 30 mg PO TID [facility] Last Admin: 09/08/16 20:56 Dose: 30 mg Bisacodyl (Dulcolax) 5 mg PO DAILY PRN PRN Reason: Constipation Cholecalciferol (Vitamin D3) 2,000 units PO DAILY [facility] Last Admin: 09/08/16 09:10 Dose: 2,000 units Docusate Sodium (Colace) 100 mg PO BID PRN PRN Reason: Constipation Enoxaparin Sodium (Lovenox) 40 mg SUBCUT DAILY [facility] Last Admin: 09/08/16 09:11 Dose: 40 mg Fluoxetine HCl (Prozac) 10 mg PO DAILY [facility] Last Admin: 09/08/16 09:10 Dose: 10 mg Hydralazine HCl (Apresoline) 20 mg IVPUSH Q4H PRN PRN Reason: Hypertension Hydrocortisone Sodium Succinate (Solu-Cortef) 100 mg IVPUSH Q6H [facility] Last Admin: 09/09/16 05:55 Dose: 100 mg Hydromorphone HCl (Dilaudid) 0.25 mg IVPUSH Q2H PRN PRN Reason: Pain (severe 7-10) Sodium Chloride (Normal Saline) 1,000 mls @ 999 mls/hr IV ASDIRECTED [facility] Last Admin: 09/07/16 13:04 Dose: 999 mls/hr Norepinephrine Bitartrate 4 mg (/ Dextrose/Water) 250 mls @ 15 mls/hr IV TITRATE KHAI; 4 MCG/MIN PRN Reason: Protocol Last Titration: 09/09/16 06:05 Dose: 1 mcg/min, 3.75 mls/hr Lactated Ringer's (Ringers, Lactated) 1,000 mls @ 50 mls/hr IV ASDIRECTED [facility] Last Admin: 09/08/16 17:06 Dose: 25 mls/hr Promethazine HCl 12.5 mg/ (Sodium Chloride) 50.5 mls @ 100 mls/hr IV Q6H PRN PRN Reason: Nausea/Vomiting Piperacillin Sod/Tazobactam (Sod 4.5 gm/ Sodium Chloride) 100 mls @ 25 mls/hr IV Q8H [facility] Last Admin: 09/09/16 06:10 Dose: 25 mls/hr Levofloxacin/Dextrose 500 mg/ (Premix) 100 mls @ 100 mls/hr IV Q24H [facility] Last Admin: 09/08/16 09:12 Dose: 100 mls/hr Lactulose (Cephulac) 10 gm PO DAILY PRN PRN Reason: CONSTIPATION Last Admin: 09/08/16 09:11 Dose: 10 gm Levetiracetam (Keppra) 1,000 mg PO BID [facility] Last Admin: 09/08/16 20:56 Dose: 1,000 mg Lorazepam (Ativan) 1 mg IV Q6H PRN PRN Reason: Anxiety Last Admin: 09/08/16 18:22 Dose: 1 mg Lorazepam (Ativan) 0.25 mg PO BID [facility] Last Admin: 09/08/16 20:57 Dose: 0.25 mg Magnesium Oxide (Magnesium Oxide) 400 mg PO QPM [facility] Last Admin: 09/08/16 17:51 Dose: 400 mg Magnesium Sulfate (Pharmacy To Dose - Magnesium Replacement) 1 dose .XX ASDIRECTED [facility] Metoprolol Tartrate (Lopressor) 5 mg IVPUSH Q4H PRN PRN Reason: Tachycardia Last Admin: 09/07/16 22:04 Dose: 5 mg Multivitamins (Thera) 1 each PO DAILY [facility] Last Admin: 09/08/16 09:07 Dose: 1 each Nystatin (Nystatin Crm) 0 gm TOP BID [facility] Last Admin: 09/08/16 20:58 Dose: 1 applic Ondansetron HCl (Zofran) 4 mg IV Q6H PRN PRN Reason: Nausea/Vomiting Polyethylene Glycol (Miralax) 17 gm PO DAILY PRN PRN Reason: Constipation Potassium Chloride (Pharmacy To Dose - Potassium Replacement) 1 dose .XX ASDIRECTED [facility] Saccharomyces Boulardii (Florastor) 250 mg PO BID [facility] Last Admin: 09/08/16 20:58 Dose: 250 mg Senna/Docusate Sodium (Senna Plus) 2 tab PO BID [facility] Last Admin: 09/08/16 20:57 Dose: 2 tab Temazepam (Restoril) 15 mg PO BEDTIME PRN PRN Reason: Sleep Tizanidine HCl (Zanaflex) 2 mg PO TID [facility] Last Admin: 09/08/16 20:57 Dose: 2 mg Discontinued Medications Acetaminophen (Tylenol) mg PO Q4HR PRN PRN Reason: Fever Baclofen (Lioresal) 30 mg GTUBE ONETIME ONE Stop: 09/07/16 17:23 Last Admin: 09/07/16 21:55 Dose: Not Given Etomidate (Amidate) Confirm Administered Dose 40 mg IVPUSH .STK-MED ONE Stop: 09/07/16 14:17 Last Admin: 09/07/16 15:58 Dose: Not Given Etomidate (Amidate) 15 mg IVPUSH ONETIME ONE Stop: 09/07/16 14:19 Last Admin: 09/07/16 14:18 Dose: 15 mg Etomidate (Amidate) 30 mg IVPUSH ONETIME ONE Stop: 09/07/16 15:01 Last Admin: 09/07/16 15:00 Dose: 30 mg Fentanyl (Sublimaze) Confirm Administered Dose 100 mcg .ROUTE .STK-MED ONE Stop: 09/07/16 14:33 Last Admin: 09/07/16 15:59 Dose: Not Given Fentanyl (Sublimaze) 100 mcg IVPUSH ONETIME ONE Stop: 09/07/16 14:31 Last Admin: 09/07/16 14:30 Dose: 100 mcg Furosemide (Lasix) 40 mg IVPUSH NOW ONE Stop: 09/07/16 16:54 Last Admin: 09/07/16 17:16 Dose: Not Given Furosemide (Lasix) Confirm Administered Dose 100 mg .ROUTE .ST-MED ONE Stop: 09/07/16 16:57 Last Admin: 09/07/16 18:25 Dose: Not Given Sodium Chloride (Normal Saline) Confirm Administered Dose 1,000 mls @ as directed .ROUTE .[facility]-MED ONE Stop: 09/07/16 13:07 Last Admin: 09/07/16 13:15 Dose: Not Given Lactated Ringer's (Ringers, Lactated) 1,000 mls @ 999 mls/hr IV .BOLUS ONE Stop: 09/07/16 14:11 Last Admin: 09/07/16 13:13 Dose: 999 mls/hr Levofloxacin/Dextrose 750 mg/ (Premix) 150 mls @ 100 mls/hr IV ONETIME ONE Stop: 09/07/16 14:57 Last Admin: 09/07/16 13:45 Dose: 100 mls/hr Vancomycin HCl 1 gm/ Sodium (Chloride) 250 mls @ 250 mls/hr IV ONETIME ONE Stop: 09/07/16 16:52 Last Admin: 09/07/16 18:25 Dose: Not Given Vancomycin HCl 1 gm/ Sodium (Chloride) 250 mls @ 250 mls/hr IV ONETIME ONE Stop: 09/07/16 16:52 Last Admin: 09/07/16 16:36 Dose: 100 mls/hr Dextrose/Sodium Chloride (Dextrose 5%-Normal Saline) 1,000 mls @ 100 mls/hr IV ASDIRECTED [facility] Last Admin: 09/07/16 18:26 Dose: 100 mls/hr Piperacillin Sod/Tazobactam (Sod 4.5 gm/ Sodium Chloride) 100 mls @ 200 mls/hr IV ONETIME ONE Stop: 09/07/16 17:29 Last Admin: 09/07/16 18:26 Dose: 200 mls/hr Magnesium Sulfate (Magnesium Sulfate 2 Gm In Water 50 Ml) 50 mls @ 50 mls/hr IV ONETIME ONE Stop: 09/07/16 22:29 Last Admin: 09/07/16 23:25 Dose: 50 mls/hr Potassium Chloride 10 meq/ (Premix) 100 mls @ 100 mls/hr IV Q1H [facility] Stop: 09/08/16 03:14 Last Admin: 09/08/16 02:04 Dose: 100 mls/hr Midazolam HCl (Versed 1 Mg/Ml) Confirm Administered Dose 2 mg .ROUTE .STK-MED ONE Stop: 09/07/16 14:11 Last Admin: 09/07/16 15:59 Dose: Not Given Midazolam HCl (Versed 1 Mg/Ml) 2 mg IVPUSH ONETIME ONE Stop: 09/07/16 14:16 Last Admin: 09/07/16 14:15 Dose: 2 mg Midazolam HCl (Versed 1 Mg/Ml) 2 mg IVPUSH ONETIME ONE Stop: 09/07/16 14:32 Last Admin: 09/07/16 14:31 Dose: 2 mg Midazolam HCl (Versed 1 Mg/Ml) 5 mg .ROUTE .STK-MED ONE Stop: 09/07/16 14:33 Ondansetron HCl (Zofran) 4 mg IVPUSH ONETIME ONE Stop: 09/07/16 13:41 Last Admin: 09/07/16 13:50 Dose: 4 mg Saccharomyces Boulardii (Florastor) 250 mg PO TID [facility] Last Admin: 09/07/16 22:22 Dose: Not Given Senna/Docusate Sodium (Senna Plus) 1 tab PO BID PRN PRN Reason: Constipation - Exam General: alert, no acute distress HEENT: Pupils equal, Pupils reactive Neck: supple, trachea midline, no JVD Lungs: Normal respiratory effort, Decreased breath sounds Cardiovascular: Regular Rate, Regular Rhythm Abdomen: bowel sounds present, soft, distension, other (PEG tube). No: rigidity , tenderness (Female) Exam: Deferred Back Exam: Normal Inspection, Decreased Range of Motion Extremities: no edema, normal pulses, no tenderness/swelling, no clubbing, no cyanosis, no calf tenderness Peripheral Pulses: 2+: Dorsalis Pedis (L), Dorsalis Pedis (R) Skin: warm, dry, intact Neurological: no new focal deficit Psy/Mental Status: alert, normal affect, normal mood - Problem List Review Problem List Initiated/Reviewed/Updated: Yes - My Orders Last 24 Hours: My Active Orders 09/08/16 07:40 PT Evaluation and Treatment [CONS] Routine 09/08/16 08:15 Lactulose [Cephulac] 10 gm PO DAILY PRN 09/08/16 09:00 Baclofen [Lioresal] 30 mg PO TID Cholecalciferol (Vitamin D3) [Vitamin D3] 2,000 units PO DAILY Docusate Sodium/Sennosides [Senna Plus] 2 tab PO BID FLUoxetine [PROzac] 10 mg PO DAILY LORazepam [Ativan] 0.25 mg PO BID Levofloxacin/Dextrose 5%-Water [Levaquin in D5W 500 MG/100 ML] 500 mg Premix Bag 1 bag IV Q24H Multivitamins,Therapeutic [Thera] 1 each PO DAILY Nystatin [Nystatin Crm] 0 gm TOP BID Saccharomyces Boulardii [Florastor] 250 mg PO BID levETIRAcetam [Keppra] 1,000 mg PO BID tiZANidine [Zanaflex] 2 mg PO TID 09/08/16 18:00 Magnesium Oxide 400 mg PO QPM 09/08/16 Dinner Tube Feeding Adult Diet [DIET] 09/09/16 05:24 BASIC METABOLIC PANEL,BMP [CHEM] AM C-REACTIVE PROTEIN [CHEM] AM MAGNESIUM [CHEM] AM 09/10/16 05:11 BASIC METABOLIC PANEL,BMP [CHEM] AM C-REACTIVE PROTEIN [CHEM] AM MAGNESIUM [CHEM] AM 09/11/16 05:11 BASIC METABOLIC PANEL,BMP [CHEM] AM C-REACTIVE PROTEIN [CHEM] AM MAGNESIUM [CHEM] AM - Plan Plan:: Assessment/Plan: Acute: Sepsis with Shock, Improving - Likely 2/2 Urosepsis +/- Adrenal Insufficiency given her hx/o MS form chronic steroid use - On levophed drip, titrate to maintain MAP at or > 65 mmHg, continue pressor - Continue 100 mg IV solucortef Q6 - Blood Culture x 2: negative so far - Start IV Zosyn for pharmacy to dose and continue IV levaquin - Probiotic 250 mg po TID - Supportive Care Critical Illness Related Corticosteroids insufficiency - Cannot r/o AI given her hx/o MS (years of steroid dependence) - Low cortisol level - Continue solucortef until pressures are better Urinary Tract Infection - Risk Factors: Incontinence, Immobility and Possible Neurogenic Bladder - UA pos E. coli - Received Levaquin 750 mg IV x1 in ED - UA Cx/Sx: E. coli resistant to Levaquin - Will d/c Levaquin and start 1 gram Rocephin Anemia - Hgb is 8.5 on admission, now is 10.2 - Baseline is 10-11 - H/H at 2000 tonight: 11.6/35.8 - 2/2 hemodilution Leukocytosis - WBC now 13.61 and CRP 17 - Treat underlying cause above Stage 2-3 Sacral Decubitus Ulcer - Continue PT for wound care Need for central line access - Attempted in ED but w/o any any success - - S/p PICC line placement by [employer] - Stable Chronic: MS Dysphagia S/p PEG Tube Placement Constipation Recurrent UTI OA Chronic Back Pain Osteoporosis Azheimer's Disease Hx/o CVA Seizure Hx/o VTEs/DVTs Depression Insomnia Eosinophilia Chronic Debility Plan: She is improving hemodynamically Continue current treatment She is now on receiving nourishment via tube feeds Routine AM Labs Continue PT/OT SW/CM for d/c planning Code status: DNR
[2016-09-09] MEDS: Levofloxacin/Dextrose 5%-Water 500 MG in Premix Bag 1 BAG IV SCH (08:37)
[2016-09-09] MEDS: tiZANidine 4 MG Tab PO SCH ×3 (08:37→22:02)
[2016-09-09] MEDS: Cholecalciferol (Vitamin D3) 1,000 Unit Tab PO SCH (08:37)
[2016-09-09] MEDS: levETIRAcetam 500 MG Tab PO SCH ×2 (08:37→22:03)
[2016-09-09] MEDS: Baclofen 10 MG Tab PO SCH ×3 (08:38→22:02)
[2016-09-09] MEDS: Saccharomyces Boulardii (Probiotic) 250 MG Cap PO SCH ×2 (08:39→22:03)
[2016-09-09] MEDS: Multivitamins,Therapeutic Tab PO SCH (08:39)
[2016-09-09] MEDS: FLUoxetine 10 MG Cap PO SCH (08:39)
[2016-09-09] MEDS: LORazepam 0.5 MG Tab PO SCH ×2 (08:39→22:02)
[2016-09-09] MEDS: Nystatin Crm 30 GM Tube TOP SCH ×2 (08:39→22:03)
[2016-09-09] MEDS: Enoxaparin 40 MG/0.4 ML Syringe SUBCUT SCH (08:40)
[2016-09-09] MEDS: LORazepam 2 MG/ML MDV IV PRN (16:22)
[2016-09-09] MEDS: Magnesium Oxide 400 MG Tab PO SCH ×2 (16:22→17:06)
[2016-09-09] MEDS: cefTRIAXone 1 GM in Sodium Chloride 0.9% 100 ML IV SCH (16:22)
[2016-09-10] MEDS: Hydrocortisone Sodium Succinate 100 MG/2 ML SDV IVPUSH SCH (06:06)
--- NOTE | 2016-09-10 06:25 | PCM.PN ---
- General Info Date of Service: 09/10/16 Admission Dx/Problem (Free Text): Septic Shock and UTI Subjective Update: Follow Up Functional Status: Reports: pain controlled, tolerating diet, urinating. Denies : new symptoms - Review of Systems General: Denies: Fever, Chills HEENT: Reports: no symptoms Pulmonary: Denies: shortness of breath Cardiovascular: Denies: Chest Pain, Palpitations Gastrointestinal: Denies: Abdominal pain, Nausea, Vomiting Genitourinary: Reports: no symptoms Musculoskeletal: Reports: no symptoms Skin: Reports: no symptoms Neurological: Reports: Pre-Existing Deficit, Trouble Speaking, Difficulty Walking, Weakness, Gait Disturbance Psychiatric: Denies: depression, anxiety, agitation Systems Review Comment:: No significant overnight or acute issues. She is at baseline. She is alert and awake and able to answer basic questions. - Patient Data Vitals - most recent: Last Vital Signs Temp 36.7 C 09/10/16 04:00 Pulse 63 09/09/16 22:00 Resp 14 09/10/16 04:00 BP 107/57 L 09/10/16 04:00 Pulse Ox 95 09/10/16 04:00 Weight - most recent: 74.661 kg I&O - last 24 hours: Intake & Output 09/09/16 09/09/16 09/10/16 14:59 22:59 06:59 Intake Total 905 1361 1509 Output Total 420 650 450 Balance 957 801 7460 Lab Results last 24 hrs: Laboratory Results - last 24 hr 09/09/16 09/09/16 09/10/16 Range/Units 05:24 05:24 04:45 WBC 13.62 H 9.82 (3.98-10.04) K/mm3 RBC 3.55 L 3.53 L (3.98-5.22) M/mm3 Hgb 10.2 L 10.2 L (11.2-15.7) gm/L Hct 31.9 L 31.6 L (34.1-44.9) % MCV 89.9 89.5 (79.4-94.8) fl MCH 28.7 28.9 (25.6-32.2) pg MCHC 32.0 L 32.3 (32.2-35.5) g/dl RDW Std Deviation 54.4 H 54.2 H (36.4-46.3) fL Plt Count 254 259 (182-369) K/mm3 MPV 10.3 10.5 (9.4-12.3) fl Neut % (Auto) 83.7 H 79.3 H (34.0-71.1) % Lymph % (Auto) 9.8 L 13.6 L (19.3-51.7) % [place] % (Auto) 6.1 5.4 (4.7-12.5) % Eos % (Auto) 0 L 0 L (0.7-5.8) Baso % (Auto) 0.1 0.1 (0.1-1.2) % Neut # (Auto) 11.40 H 7.78 H (1.56-6.13) K/mm3 Lymph # (Auto) 1.34 1.34 (1.18-3.74) K/mm3 [place] # (Auto) 0.83 H 0.53 H (0.24-0.36) K/mm3 Eos # (Auto) 0.00 L 0.00 L (0.04-0.36) K/mm3 Baso # (Auto) 0.01 0.01 (0.01-0.08) K/mm3 Manual Slide Review Abnormal smear Abnormal smear Sodium 142 (136-145) mEq/L Potassium 3.4 L (3.5-5.1) mEq/L Chloride 105 (98-107) mEq/L Carbon Dioxide 28 (21-32) mEq/L Anion Gap 12.4 (5-15) BUN 15 (7-18) mg/dL Creatinine 0.7 (0.55-1.02) mg/dL Est Cr Clr Drug Dosing 73.51 mL/min Estimated GFR (MDRD) > 60 (>60) mL/min BUN/Creatinine Ratio 21.4 H (14-18) Glucose 140 H (74-106) mg/dL Calcium 8.9 (8.5-10.1) mg/dL Magnesium 1.8 (1.8-2.4) mg/dl C-Reactive Protein 17.8 H* (<1.0) mg/dL Med Orders - Current: Current Medications Acetaminophen (Tylenol) 650 mg PO Q4H PRN PRN Reason: Pain (Mild 1-3)/fever Hydrocodone Bitart/Acetaminophen ([place] 325-5 Mg) 1 tab PO Q4H PRN PRN Reason: Pain (moderate 4-6) Last Admin: 09/09/16 08:38 Dose: 1 tab Albuterol/Ipratropium (Duoneb 3.0-0.5 Mg/3 Ml) 3 ml NEB Q4H PRN PRN Reason: Shortness Of Breath/wheezing Baclofen (Lioresal) 30 mg PO TID [facility] Last Admin: 09/09/16 22:02 Dose: 30 mg Bisacodyl (Dulcolax) 5 mg PO DAILY PRN PRN Reason: Constipation Last Admin: 09/09/16 08:39 Dose: 5 mg Cholecalciferol (Vitamin D3) 2,000 units PO DAILY [facility] Last Admin: 09/09/16 08:37 Dose: 2,000 units Docusate Sodium (Colace) 100 mg PO BID PRN PRN Reason: Constipation Enoxaparin Sodium (Lovenox) 40 mg SUBCUT DAILY [facility] Last Admin: 09/09/16 08:40 Dose: 40 mg Fluoxetine HCl (Prozac) 10 mg PO DAILY [facility] Last Admin: 09/09/16 08:39 Dose: 10 mg Hydralazine HCl (Apresoline) 20 mg IVPUSH Q4H PRN PRN Reason: Hypertension Hydrocortisone Sodium Succinate (Solu-Cortef) 100 mg IVPUSH Q6H [facility] Last Admin: 09/10/16 06:06 Dose: 100 mg Hydromorphone HCl (Dilaudid) 0.25 mg IVPUSH Q2H PRN PRN Reason: Pain (severe 7-10) Sodium Chloride (Normal Saline) 1,000 mls @ 999 mls/hr IV ASDIRECTED [facility] Last Admin: 09/07/16 13:04 Dose: 999 mls/hr Norepinephrine Bitartrate 4 mg (/ Dextrose/Water) 250 mls @ 15 mls/hr IV TITRATE [facility]; 4 MCG/MIN PRN Reason: Protocol Last Titration: 09/09/16 17:30 Dose: 0 mcg/min, 0 mls/hr Lactated Ringer's (Ringers, Lactated) 1,000 mls @ 50 mls/hr IV ASDIRECTED [facility] Last Admin: 09/08/16 17:06 Dose: 25 mls/hr Promethazine HCl 12.5 mg/ (Sodium Chloride) 50.5 mls @ 100 mls/hr IV Q6H PRN PRN Reason: Nausea/Vomiting Ceftriaxone Sodium 1 gm/ (Sodium Chloride) 100 mls @ 200 mls/hr IV Q24H [facility] Last Admin: 09/09/16 16:22 Dose: 200 mls/hr Lactulose (Cephulac) 10 gm PO DAILY PRN PRN Reason: CONSTIPATION Last Admin: 09/08/16 09:11 Dose: 10 gm Levetiracetam (Keppra) 1,000 mg PO BID [facility] Last Admin: 09/09/16 22:03 Dose: 1,000 mg Lorazepam (Ativan) 1 mg IV Q6H PRN PRN Reason: Anxiety Last Admin: 09/09/16 16:22 Dose: 1 mg Lorazepam (Ativan) 0.25 mg PO BID [facility] Last Admin: 09/09/16 22:02 Dose: 0.25 mg Magnesium Oxide (Magnesium Oxide) 400 mg PO QPM [facility] Last Admin: 09/09/16 17:06 Dose: Not Given Magnesium Sulfate (Pharmacy To Dose - Magnesium Replacement) 1 dose .XX ASDIRECTED [facility] Metoprolol Tartrate (Lopressor) 5 mg IVPUSH Q4H PRN PRN Reason: Tachycardia Last Admin: 09/07/16 22:04 Dose: 5 mg Multivitamins (Thera) 1 each PO DAILY [facility] Last Admin: 09/09/16 08:39 Dose: 1 each Nystatin (Nystatin Crm) 0 gm TOP BID [facility] Last Admin: 09/09/16 22:03 Dose: 1 applic Ondansetron HCl (Zofran) 4 mg IV Q6H PRN PRN Reason: Nausea/Vomiting Polyethylene Glycol (Miralax) 17 gm PO DAILY PRN PRN Reason: Constipation Potassium Chloride (Pharmacy To Dose - Potassium Replacement) 1 dose .XX ASDIRECTED [facility] Saccharomyces Boulardii (Florastor) 250 mg PO BID [facility] Last Admin: 09/09/16 22:03 Dose: 250 mg Senna/Docusate Sodium (Senna Plus) 2 tab PO BID [facility] Last Admin: 09/09/16 22:03 Dose: 2 tab Temazepam (Restoril) 15 mg PO BEDTIME PRN PRN Reason: Sleep Tizanidine HCl (Zanaflex) 2 mg PO TID [facility] Last Admin: 09/09/16 22:02 Dose: 2 mg Discontinued Medications Acetaminophen (Tylenol) mg PO Q4HR PRN PRN Reason: Fever Baclofen (Lioresal) 30 mg GTUBE ONETIME ONE Stop: 09/07/16 17:23 Last Admin: 09/07/16 21:55 Dose: Not Given Etomidate (Amidate) Confirm Administered Dose 40 mg IVPUSH .STK-MED ONE Stop: 09/07/16 14:17 Last Admin: 09/07/16 15:58 Dose: Not Given Etomidate (Amidate) 15 mg IVPUSH ONETIME ONE Stop: 09/07/16 14:19 Last Admin: 09/07/16 14:18 Dose: 15 mg Etomidate (Amidate) 30 mg IVPUSH ONETIME ONE Stop: 09/07/16 15:01 Last Admin: 09/07/16 15:00 Dose: 30 mg Fentanyl (Sublimaze) Confirm Administered Dose 100 mcg .ROUTE .STK-MED ONE Stop: 09/07/16 14:33 Last Admin: 09/07/16 15:59 Dose: Not Given Fentanyl (Sublimaze) 100 mcg IVPUSH ONETIME ONE Stop: 09/07/16 14:31 Last Admin: 09/07/16 14:30 Dose: 100 mcg Furosemide (Lasix) 40 mg IVPUSH NOW ONE Stop: 09/07/16 16:54 Last Admin: 09/07/16 17:16 Dose: Not Given Furosemide (Lasix) Confirm Administered Dose 100 mg .ROUTE .STK-MED ONE Stop: 09/07/16 16:57 Last Admin: 09/07/16 18:25 Dose: Not Given Sodium Chloride (Normal Saline) Confirm Administered Dose 1,000 mls @ as directed .ROUTE .STK-MED ONE Stop: 09/07/16 13:07 Last Admin: 09/07/16 13:15 Dose: Not Given Lactated Ringer's (Ringers, Lactated) 1,000 mls @ 999 mls/hr IV .BOLUS ONE Stop: 09/07/16 14:11 Last Admin: 09/07/16 13:13 Dose: 999 mls/hr Levofloxacin/Dextrose 750 mg/ (Premix) 150 mls @ 100 mls/hr IV ONETIME ONE Stop: 09/07/16 14:57 Last Admin: 09/07/16 13:45 Dose: 100 mls/hr Vancomycin HCl 1 gm/ Sodium (Chloride) 250 mls @ 250 mls/hr IV ONETIME ONE Stop: 09/07/16 16:52 Last Admin: 09/07/16 18:25 Dose: Not Given Vancomycin HCl 1 gm/ Sodium (Chloride) 250 mls @ 250 mls/hr IV ONETIME ONE Stop: 09/07/16 16:52 Last Admin: 09/07/16 16:36 Dose: 100 mls/hr Piperacillin Sod/Tazobactam (Sod 4.5 gm/ Sodium Chloride) 100 mls @ 25 mls/hr IV Q8H [facility] Last Admin: 09/09/16 15:58 Dose: Not Given Dextrose/Sodium Chloride (Dextrose 5%-Normal Saline) 1,000 mls @ 100 mls/hr IV ASDIRECTED [facility] Last Admin: 09/07/16 18:26 Dose: 100 mls/hr Piperacillin Sod/Tazobactam (Sod 4.5 gm/ Sodium Chloride) 100 mls @ 200 mls/hr IV ONETIME ONE Stop: 09/07/16 17:29 Last Admin: 09/07/16 18:26 Dose: 200 mls/hr Levofloxacin/Dextrose 500 mg/ (Premix) 100 mls @ 100 mls/hr IV Q24H [facility] Last Admin: 09/09/16 08:37 Dose: 100 mls/hr Magnesium Sulfate (Magnesium Sulfate 2 Gm In Water 50 Ml) 50 mls @ 50 mls/hr IV ONETIME ONE Stop: 09/07/16 22:29 Last Admin: 09/07/16 23:25 Dose: 50 mls/hr Potassium Chloride 10 meq/ (Premix) 100 mls @ 100 mls/hr IV Q1H [facility] Stop: 09/08/16 03:14 Last Admin: 09/08/16 02:04 Dose: 100 mls/hr Midazolam HCl (Versed 1 Mg/Ml) Confirm Administered Dose 2 mg .ROUTE .STK-MED ONE Stop: 09/07/16 14:11 Last Admin: 09/07/16 15:59 Dose: Not Given Midazolam HCl (Versed 1 Mg/Ml) 2 mg IVPUSH ONETIME ONE Stop: 09/07/16 14:16 Last Admin: 09/07/16 14:15 Dose: 2 mg Midazolam HCl (Versed 1 Mg/Ml) 2 mg IVPUSH ONETIME ONE Stop: 09/07/16 14:32 Last Admin: 09/07/16 14:31 Dose: 2 mg Midazolam HCl (Versed 1 Mg/Ml) 5 mg .ROUTE .STK-MED ONE Stop: 09/07/16 14:33 Ondansetron HCl (Zofran) 4 mg IVPUSH ONETIME ONE Stop: 09/07/16 13:41 Last Admin: 09/07/16 13:50 Dose: 4 mg Saccharomyces Boulardii (Florastor) 250 mg PO TID [facility] Last Admin: 09/07/16 22:22 Dose: Not Given Senna/Docusate Sodium (Senna Plus) 1 tab PO BID PRN PRN Reason: Constipation - Exam General: alert, cooperative, no acute distress HEENT: Pupils equal, Pupils reactive, Mucous membr. moist/pink Neck: supple, trachea midline, no JVD, no thyromegaly Lungs: Normal respiratory effort, Decreased breath sounds Cardiovascular: Regular Rate, Regular Rhythm Abdomen: bowel sounds present, soft, no tenderness, distension, other (PEG tube) (Female) Exam: Other (indwelling foely catheter) Back Exam: Normal Inspection, Decreased Range of Motion Extremities: normal pulses, no tenderness/swelling, no clubbing, no cyanosis, no calf tenderness, edema Peripheral Pulses: 2+: Dorsalis Pedis (L), Dorsalis Pedis (R) Skin: warm, dry, intact Neurological: no new focal deficit Psy/Mental Status: alert, normal affect, normal mood - Problem List Review Problem List Initiated/Reviewed/Updated: Yes - My Orders Last 24 Hours: My Active Orders 09/09/16 16:00 cefTRIAXone [Rocephin] 1 gm Sodium Chloride 0.9% [Normal Saline] 100 ml IV Q24H 09/10/16 04:45 BASIC METABOLIC PANEL,BMP [CHEM] AM C-REACTIVE PROTEIN [CHEM] AM MAGNESIUM [CHEM] AM 09/11/16 05:11 BASIC METABOLIC PANEL,BMP [CHEM] AM C-REACTIVE PROTEIN [CHEM] AM MAGNESIUM [CHEM] AM - Plan Plan:: Assessment/Plan: Acute: Urinary Tract Infection - Risk Factors: Incontinence, Immobility and Possible Neurogenic Bladder - UA pos E. coli - Received Levaquin 750 mg IV x1 in ED - UA Cx/Sx: E. coli resistant to Levaquin - Continue 1 gram Rocephin IV daily Stage 2-3 Sacral Decubitus Ulcer - Continue PT for wound care Need for central line access - Attempted in ED but w/o any any success - - S/p PICC line placement by [facility] [employer]PECT[facility] - Consider removing access line tomorrow Resolved: S/p Leukocytosis - WBC now 9.82 and CRP 6.3 - Treat underlying cause above S/p Sepsis with Shock, Improving - Likely 2/2 Urosepsis +/- Adrenal Insufficiency given her hx/o MS form chronic steroid use - On levophed drip, titrate to maintain MAP at or > 65 mmHg, continue pressor - Continue 100 mg IV solucortef Q6 - Blood Culture x 2: negative so far - Start IV Zosyn for pharmacy to dose and continue IV levaquin - Probiotic 250 mg po TID - Supportive Care Critical Illness Related Corticosteroids insufficiency - Cannot r/o AI given her hx/o MS (years of steroid dependence) - Low cortisol level - Continue solucortef until pressures are better - Vitals have now improved Anemia - Hgb is 8.5 on admission, now is 10.2 - Baseline is 10-11 - H/H at 2000 tonight: 11.6/35.8 - 2/2 hemodilution Chronic: MS Dysphagia S/p PEG Tube Placement Constipation Recurrent UTI OA Chronic Back Pain Osteoporosis Azheimer's Disease Hx/o CVA Seizure Hx/o VTEs/DVTs Depression Insomnia Eosinophilia Chronic Debility Plan: She is much improved clinically Transfer to Med-Surg with Tele Continue current treatment May discontinue PICC line in AM Routine AM Labs Continue PT/OT SW/CM for d/c planning Code status: DNR LOS anticipate > 96 hrs due to complexity of presenting illness
[2016-09-10] MEDS: Nystatin Crm 30 GM Tube TOP SCH ×2 (08:29→21:48)
[2016-09-10] MEDS: Multivitamins,Therapeutic Tab PO SCH (08:30)
[2016-09-10] MEDS: Baclofen 10 MG Tab PO SCH ×3 (08:30→21:46)
[2016-09-10] MEDS: tiZANidine 4 MG Tab PO SCH ×3 (08:34→21:48)
[2016-09-10] MEDS: Cholecalciferol (Vitamin D3) 1,000 Unit Tab PO SCH (08:35)
[2016-09-10] MEDS: FLUoxetine 10 MG Cap PO SCH (08:36)
[2016-09-10] MEDS: Saccharomyces Boulardii (Probiotic) 250 MG Cap PO SCH ×2 (08:36→21:46)
[2016-09-10] MEDS: levETIRAcetam 500 MG Tab PO SCH ×2 (08:37→21:46)
[2016-09-10] MEDS: LORazepam 0.5 MG Tab PO SCH ×2 (08:37→21:47)
[2016-09-10] MEDS: Enoxaparin 40 MG/0.4 ML Syringe SUBCUT SCH (08:43)
[2016-09-10] MEDS ORDERED: Magnesium Sulfate/Water 50 ML IV ONE (09:30)
[2016-09-10] MEDS ORDERED: Potassium Chloride 20 MEQ Tab.ER PO SCH (10:00)
[2016-09-10] MEDS: Potassium Chloride 10% 20 MEQ/15 ML Soln 15 ML UD Cup PO SCH ×3 (11:39→16:42)
[2016-09-10] MEDS: Lactated Ringers 1,000 ML IV SCH (13:00)
[2016-09-10] MEDS: cefTRIAXone 1 GM in Sodium Chloride 0.9% 100 ML IV SCH (16:42)
[2016-09-10] MEDS: Magnesium Oxide 400 MG Tab PO SCH (17:06)
[2016-09-11] MEDS: Lactated Ringers 1,000 ML IV SCH (04:58)
[2016-09-11] MEDS: Metoprolol Tartrate 5 MG/5 ML SDV IVPUSH PRN (06:26)
[2016-09-11] MEDS ORDERED: Potassium Chloride 10% 20 MEQ/15 ML Soln 15 ML UD Cup PO ONE (08:25)
--- NOTE | 2016-09-11 08:26 | PCM.PN ---
<Sabra Wadsworth - Last Filed: 09/11/16 11:21> - General Info Date of Service: 09/11/16 Admission Dx/Problem (Free Text): Admission Diagnosis/Problem Admission Diagnosis/Problem Sepsis due to urinary tract infection Doing well today; had episode of tachycardia and abdominal cramping after am feeding today. 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 Otherwise stable. Labs improved. Functional Status: Reports: pain controlled, urinating (walters cath ). Denies: ambulating (bedbound) - Review of Systems General: Reports: Weakness (chronic with contractures) Pulmonary: Denies: shortness of breath, cough Cardiovascular: Denies: Chest Pain Gastrointestinal: Reports: Abdominal pain (cramping reported after last tube feeding this am. ) Genitourinary: Reports: retention (neurogenic bladder chronically) Musculoskeletal: Reports: other (MS by hx; bedbound) Skin: Reports: other (stage 2 ulcer to coccyx) Neurological: Reports: Other (verbalizes yes or no questions otherwise essentially nonverbal) - Patient Data Vitals - most recent: Last Vital Signs Temp 97.9 F 09/11/16 05:22 Pulse 137 H 09/11/16 06:26 Resp 18 09/11/16 05:22 BP 128/76 09/11/16 06:26 Pulse Ox 95 09/11/16 05:22 Weight - most recent: 74.162 kg I&O - last 24 hours: Intake & Output 09/10/16 09/11/16 09/11/16 22:59 06:59 14:59 Intake Total 1640 1045 Output Total 1600 925 Balance 40 120 Lab Results last 24 hrs: Laboratory Results - last 24 hr 09/11/16 Range/Units 08:10 WBC 11.23 H (3.98-10.04) K/mm3 RBC 3.89 L (3.98-5.22) M/mm3 Hgb 11.1 L (11.2-15.7) gm/L Hct 34.5 (34.1-44.9) % MCV 88.7 (79.4-94.8) fl MCH 28.5 (25.6-32.2) pg MCHC 32.2 (32.2-35.5) g/dl RDW Std Deviation 53.7 H (36.4-46.3) fL Plt Count 294 (182-369) K/mm3 MPV 9.9 (9.4-12.3) fl Neut % (Auto) 59.2 (34.0-71.1) % Lymph % (Auto) 30.4 (19.3-51.7) % [place] % (Auto) 9.3 (4.7-12.5) % Eos % (Auto) 0 L (0.7-5.8) Baso % (Auto) 0.2 (0.1-1.2) % Neut # (Auto) 6.66 H (1.56-6.13) K/mm3 Lymph # (Auto) 3.41 (1.18-3.74) K/mm3 [place] # (Auto) 1.04 H (0.24-0.36) K/mm3 Eos # (Auto) 0.00 L (0.04-0.36) K/mm3 Baso # (Auto) 0.02 (0.01-0.08) K/mm3 Peter Results last 24 hrs: Microbiology 09/10/16 16:30 Stool Occult Blood (PETER) - Final Stool / Feces - Stool, Formed NEGATIVE OCCULT BLOOD Med Orders - Current: Current Medications Acetaminophen (Tylenol) 650 mg PO Q4H PRN PRN Reason: Pain (Mild 1-3)/fever Hydrocodone Bitart/Acetaminophen ([place] 325-5 Mg) 1 tab PO Q4H PRN PRN Reason: Pain (moderate 4-6) Last Admin: 09/09/16 08:38 Dose: 1 tab Albuterol/Ipratropium (Duoneb 3.0-0.5 Mg/3 Ml) 3 ml NEB Q4H PRN PRN Reason: Shortness Of Breath/wheezing Baclofen (Lioresal) 30 mg PO TID REPLACED BY [facility] Last Admin: 09/10/16 21:46 Dose: 30 mg Bisacodyl (Dulcolax) 5 mg PO DAILY PRN PRN Reason: Constipation Last Admin: 09/09/16 08:39 Dose: 5 mg Cholecalciferol (Vitamin D3) 2,000 units PO DAILY REPLACED BY [facility] Last Admin: 09/10/16 08:35 Dose: 2,000 units Docusate Sodium (Colace) 100 mg PO BID PRN PRN Reason: Constipation Enoxaparin Sodium (Lovenox) 40 mg SUBCUT DAILY REPLACED BY [facility] Last Admin: 09/10/16 08:43 Dose: 40 mg Famotidine (Pepcid) 20 mg PO BID REPLACED BY [facility] Fluoxetine HCl (Prozac) 10 mg PO DAILY REPLACED BY [facility] Last Admin: 09/10/16 08:36 Dose: 10 mg Hydralazine HCl (Apresoline) 20 mg IVPUSH Q4H PRN PRN Reason: Hypertension Last Admin: 09/11/16 05:43 Dose: 20 mg Hydromorphone HCl (Dilaudid) 0.25 mg IVPUSH Q2H PRN PRN Reason: Pain (severe 7-10) Lactated Ringer's (Ringers, Lactated) 1,000 mls @ 50 mls/hr IV ASDIRECTED REPLACED BY [facility] Last Admin: 09/11/16 04:58 Dose: 50 mls/hr Promethazine HCl 12.5 mg/ (Sodium Chloride) 50.5 mls @ 100 mls/hr IV Q6H PRN PRN Reason: Nausea/Vomiting Ceftriaxone Sodium 1 gm/ (Sodium Chloride) 100 mls @ 200 mls/hr IV Q24H REPLACED BY [facility] Last Admin: 09/10/16 16:42 Dose: 200 mls/hr Lactulose (Cephulac) 10 gm PO DAILY PRN PRN Reason: CONSTIPATION Last Admin: 09/08/16 09:11 Dose: 10 gm Levetiracetam (Keppra) 1,000 mg PO BID REPLACED BY [facility] Last Admin: 09/10/16 21:46 Dose: 1,000 mg Lorazepam (Ativan) 1 mg IV Q6H PRN PRN Reason: Anxiety Last Admin: 09/09/16 16:22 Dose: 1 mg Lorazepam (Ativan) 0.25 mg PO BID REPLACED BY [facility] Last Admin: 09/10/16 21:47 Dose: 0.25 mg Magnesium Oxide (Magnesium Oxide) 400 mg PO BID REPLACED BY [facility] Metoprolol Tartrate (Lopressor) 5 mg IVPUSH Q4H PRN PRN Reason: Tachycardia Last Admin: 09/11/16 06:26 Dose: 5 mg Multivitamins (Thera) 1 each PO DAILY REPLACED BY [facility] Last Admin: 09/10/16 08:30 Dose: 1 each Nystatin (Nystatin Crm) 0 gm TOP BID REPLACED BY [facility] Last Admin: 09/10/16 21:48 Dose: 1 applic Ondansetron HCl (Zofran) 4 mg IV Q6H PRN PRN Reason: Nausea/Vomiting Polyethylene Glycol (Miralax) 17 gm PO DAILY PRN PRN Reason: Constipation Potassium Chloride (Potassium Chloride Solution) 20 meq PO BID REPLACED BY [facility] Potassium Chloride (Potassium Chloride Solution) 20 meq PO ONETIME ONE Stop: 09/11/16 08:26 Saccharomyces Boulardii (Florastor) 250 mg PO BID REPLACED BY [facility] Last Admin: 09/10/16 21:46 Dose: 250 mg Senna/Docusate Sodium (Senna Plus) 2 tab PO BID REPLACED BY [facility] Last Admin: 09/10/16 21:46 Dose: 2 tab Temazepam (Restoril) 15 mg PO BEDTIME PRN PRN Reason: Sleep Tizanidine HCl (Zanaflex) 2 mg PO TID REPLACED BY [facility] Last Admin: 09/10/16 21:48 Dose: 2 mg Discontinued Medications Acetaminophen (Tylenol) mg PO Q4HR PRN PRN Reason: Fever Baclofen (Lioresal) 30 mg GTUBE ONETIME ONE Stop: 09/07/16 17:23 Last Admin: 09/07/16 21:55 Dose: Not Given Etomidate (Amidate) Confirm Administered Dose 40 mg IVPUSH .STK-MED ONE Stop: 09/07/16 14:17 Last Admin: 09/07/16 15:58 Dose: Not Given Etomidate (Amidate) 15 mg IVPUSH ONETIME ONE Stop: 09/07/16 14:19 Last Admin: 09/07/16 14:18 Dose: 15 mg Etomidate (Amidate) 30 mg IVPUSH ONETIME ONE Stop: 09/07/16 15:01 Last Admin: 09/07/16 15:00 Dose: 30 mg Fentanyl (Sublimaze) Confirm Administered Dose 100 mcg .ROUTE .STK-MED ONE Stop: 09/07/16 14:33 Last Admin: 09/07/16 15:59 Dose: Not Given Fentanyl (Sublimaze) 100 mcg IVPUSH ONETIME ONE Stop: 09/07/16 14:31 Last Admin: 09/07/16 14:30 Dose: 100 mcg Furosemide (Lasix) 40 mg IVPUSH NOW ONE Stop: 09/07/16 16:54 Last Admin: 09/07/16 17:16 Dose: Not Given Furosemide (Lasix) Confirm Administered Dose 100 mg .ROUTE .STK-MED ONE Stop: 09/07/16 16:57 Last Admin: 09/07/16 18:25 Dose: Not Given Hydrocortisone Sodium Succinate (Solu-Cortef) 100 mg IVPUSH Q6H KHAI Last Admin: 09/10/16 06:06 Dose: 100 mg Sodium Chloride (Normal Saline) Confirm Administered Dose 1,000 mls @ as directed .ROUTE .STK-MED ONE Stop: 09/07/16 13:07 Last Admin: 09/07/16 13:15 Dose: Not Given Sodium Chloride (Normal Saline) 1,000 mls @ 999 mls/hr IV ASDIRECTED KHAI Last Admin: 09/07/16 13:04 Dose: 999 mls/hr Lactated Ringer's (Ringers, Lactated) 1,000 mls @ 999 mls/hr IV .BOLUS ONE Stop: 09/07/16 14:11 Last Admin: 09/07/16 13:13 Dose: 999 mls/hr Levofloxacin/Dextrose 750 mg/ (Premix) 150 mls @ 100 mls/hr IV ONETIME ONE Stop: 09/07/16 14:57 Last Admin: 09/07/16 13:45 Dose: 100 mls/hr Norepinephrine Bitartrate 4 mg (/ Dextrose/Water) 250 mls @ 15 mls/hr IV TITRATE KHAI; 4 MCG/MIN PRN Reason: Protocol Last Titration: 09/09/16 17:30 Dose: 0 mcg/min, 0 mls/hr Vancomycin HCl 1 gm/ Sodium (Chloride) 250 mls @ 250 mls/hr IV ONETIME ONE Stop: 09/07/16 16:52 Last Admin: 09/07/16 18:25 Dose: Not Given Vancomycin HCl 1 gm/ Sodium (Chloride) 250 mls @ 250 mls/hr IV ONETIME ONE Stop: 09/07/16 16:52 Last Admin: 09/07/16 16:36 Dose: 100 mls/hr Piperacillin Sod/Tazobactam (Sod 4.5 gm/ Sodium Chloride) 100 mls @ 25 mls/hr IV Q8H KHAI Last Admin: 09/09/16 15:58 Dose: Not Given Dextrose/Sodium Chloride (Dextrose 5%-Normal Saline) 1,000 mls @ 100 mls/hr IV ASDIRECTED KHAI Last Admin: 09/07/16 18:26 Dose: 100 mls/hr Piperacillin Sod/Tazobactam (Sod 4.5 gm/ Sodium Chloride) 100 mls @ 200 mls/hr IV ONETIME ONE Stop: 09/07/16 17:29 Last Admin: 09/07/16 18:26 Dose: 200 mls/hr Levofloxacin/Dextrose 500 mg/ (Premix) 100 mls @ 100 mls/hr IV Q24H REPLACED BY [facility] Last Admin: 09/09/16 08:37 Dose: 100 mls/hr Magnesium Sulfate (Magnesium Sulfate 2 Gm In Water 50 Ml) 50 mls @ 50 mls/hr IV ONETIME ONE Stop: 09/07/16 22:29 Last Admin: 09/07/16 23:25 Dose: 50 mls/hr Potassium Chloride 10 meq/ (Premix) 100 mls @ 100 mls/hr IV Q1H KHAI Stop: 09/08/16 03:14 Last Admin: 09/08/16 02:04 Dose: 100 mls/hr Magnesium Sulfate (Magnesium Sulfate 2 Gm In Water 50 Ml) 50 mls @ 50 mls/hr IV ONETIME ONE Stop: 09/10/16 10:29 Last Admin: 09/10/16 10:20 Dose: 50 mls/hr Magnesium Oxide (Magnesium Oxide) 400 mg PO QPM REPLACED BY [facility] Last Admin: 09/10/16 17:06 Dose: 400 mg Magnesium Sulfate (Pharmacy To Dose - Magnesium Replacement) 1 dose .XX ASDIRECTED REPLACED BY [facility] Midazolam HCl (Versed 1 Mg/Ml) Confirm Administered Dose 2 mg .ROUTE .STK-MED ONE Stop: 09/07/16 14:11 Last Admin: 09/07/16 15:59 Dose: Not Given Midazolam HCl (Versed 1 Mg/Ml) 2 mg IVPUSH ONETIME ONE Stop: 09/07/16 14:16 Last Admin: 09/07/16 14:15 Dose: 2 mg Midazolam HCl (Versed 1 Mg/Ml) 2 mg IVPUSH ONETIME ONE Stop: 09/07/16 14:32 Last Admin: 09/07/16 14:31 Dose: 2 mg Midazolam HCl (Versed 1 Mg/Ml) 5 mg .ROUTE .STK-MED ONE Stop: 09/07/16 14:33 Ondansetron HCl (Zofran) 4 mg IVPUSH ONETIME ONE Stop: 09/07/16 13:41 Last Admin: 09/07/16 13:50 Dose: 4 mg Potassium Chloride (Pharmacy To Dose - Potassium Replacement) 1 dose .XX ASDIRECTED REPLACED BY [facility] Potassium Chloride (Klor-Con M20) 20 meq PO Q3H REPLACED BY [facility] Stop: 09/10/16 16:01 Last Admin: 09/10/16 10:20 Dose: 20 meq Potassium Chloride (Potassium Chloride Solution) 20 meq PO Q3H REPLACED BY [facility] Stop: 09/10/16 17:01 Last Admin: 09/10/16 16:42 Dose: 20 meq Saccharomyces Boulardii (Florastor) 250 mg PO TID REPLACED BY [facility] Last Admin: 09/07/16 22:22 Dose: Not Given Senna/Docusate Sodium (Senna Plus) 1 tab PO BID PRN PRN Reason: Constipation - Exam Quality Assessment: urine catheter, DVT prophylaxis, skin breakdown (coccyx and buttock) General: alert, no acute distress HEENT: Pupils equal, Pupils reactive, EOMI Neck: supple Lungs: Clear to auscultation, Normal respiratory effort, Decreased breath sounds (bases) Cardiovascular: Regular Rate, Regular Rhythm, No Murmurs Abdomen: bowel sounds present, soft, no tenderness, no distension, other (peg tube) (Female) Exam: Deferred Extremities: no edema Skin: other (stage 2 ulcer to coccyx with erythema surrounding buttock, gluteal fold with satellite redness/pinpoint to border of erythema suspicious for yeast dermatitis) Neurological: other (MS) Psy/Mental Status: alert - Problem List & Annotations (1) UTI, Urinary tract infectious disease SNOMED Code(s): 57928854 Code(s): N39.0 - URINARY TRACT INFECTION, SITE NOT SPECIFIED Status: Acute Priority: High Current Visit: Yes (2) Septic shock SNOMED Code(s): 84682075 Code(s): A41.9 - SEPSIS, UNSPECIFIED ORGANISM; R65.21 - SEVERE SEPSIS WITH SEPTIC SHOCK Status: Resolved Priority: High Current Visit: Yes (3) Nonverbal SNOMED Code(s): 189373385 Code(s): R47.01 - APHASIA Status: Chronic Priority: Medium Current Visit: Yes (4) Dysphagia SNOMED Code(s): 11079962, 010292686 Code(s): R13.10 - DYSPHAGIA, UNSPECIFIED Status: Chronic Priority: Medium Current Visit: No (5) Multiple sclerosis SNOMED Code(s): 78336124 Code(s): G35 - MULTIPLE SCLEROSIS Status: Chronic Priority: Medium Current Visit: No - Problem List Review Problem List Initiated/Reviewed/Updated: Yes - My Orders Last 24 Hours: My Active Orders 09/11/16 08:25 Potassium Chloride [Potassium Chloride Solution] 20 meq PO ONETIME ONE 09/11/16 09:00 Famotidine [Pepcid] 20 mg PO BID Magnesium Oxide 400 mg PO BID Potassium Chloride [Potassium Chloride Solution] 20 meq PO BID - Plan Plan:: Assessment/Plan: Acute: Urinary Tract Infection - Risk Factors: Incontinence, Immobility, Neurogenic Bladder, MS, hx of recurrent UTI - UA pos E. coli - Received Levaquin 750 mg IV x1 in ED - UA Cx/Sx: E. coli resistant to Levaquin - Continue 1 gram Rocephin IV daily - Florastor -DOMINGA Walters today Stage 2-3 Sacral Decubitus Ulcer - Continue PT for wound care - Suspect component of yeast dermatitis; add lotrisone cream BID today - Frequent repositioning at least Q2hrs Need for central line access - Attempted in ED but w/o any any success - - S/p PICC line placement by [facility] - Cont per protocol Resolved: S/p Leukocytosis - WBC now 9.82 and CRP 6.3 - Treat underlying cause above S/p Sepsis with Shock, Improving - Likely 2/2 Urosepsis +/- Adrenal Insufficiency given her hx/o MS form chronic steroid use - On levophed drip, titrate to maintain MAP at or > 65 mmHg, continue pressor - Continue 100 mg IV solucortef Q6 - Blood Culture x 2: negative so far - Start IV Zosyn for pharmacy to dose and continue IV levaquin - Probiotic 250 mg po TID - Supportive Care Critical Illness Related Corticosteroids insufficiency - Cannot r/o AI given her hx/o MS (years of steroid dependence) - Low cortisol level - Continue solucortef until pressures are better - Vitals have now improved Anemia - Hgb is 8.5 on admission, now is 10.2 - Baseline is 10-11 - H/H at 2000 tonight: 11.6/35.8 - 2/2 hemodilution Chronic: MS Dysphagia S/p PEG Tube Placement---add reglan today TID Constipation Recurrent UTI OA Chronic Back Pain Osteoporosis Azheimer's Disease Hx/o CVA Seizure Hx/o VTEs/DVTs Depression Insomnia Eosinophilia Chronic Debility Plan: She is much improved clinically Transfer to [facility] with Tele Continue current treatment May discontinue walters cath today Routine AM Labs GI/DVT prophylax Continue PT/OT SW/CM for d/c planning Code status: DNR LOS anticipate > 96 hrs due to complexity of presenting illness--likely DC back to [facility] tomorrow. <Kailey Winston - Last Filed: 09/11/16 14:00> - Patient Data Vitals - most recent: Last Vital Signs Temp 36.6 C 09/11/16 12:40 Pulse 87 09/11/16 12:40 Resp 24 H 09/11/16 12:40 BP 144/62 H 09/11/16 12:40 Pulse Ox 96 09/11/16 12:40 I&O - last 24 hours: Intake & Output 09/10/16 09/11/16 09/11/16 22:59 06:59 14:59 Intake Total 1640 1045 Output Total 1600 925 350 Balance 40 120 -350 Lab Results last 24 hrs: Laboratory Results - last 24 hr 09/11/16 09/11/16 Range/Units 08:10 08:10 WBC 11.23 H (3.98-10.04) K/mm3 RBC 3.89 L (3.98-5.22) M/mm3 Hgb 11.1 L (11.2-15.7) gm/L Hct 34.5 (34.1-44.9) % MCV 88.7 (79.4-94.8) fl MCH 28.5 (25.6-32.2) pg MCHC 32.2 (32.2-35.5) g/dl RDW Std Deviation 53.7 H (36.4-46.3) fL Plt Count 294 (182-369) K/mm3 MPV 9.9 (9.4-12.3) fl Neut % (Auto) 59.2 (34.0-71.1) % Lymph % (Auto) 30.4 (19.3-51.7) % [place] % (Auto) 9.3 (4.7-12.5) % Eos % (Auto) 0 L (0.7-5.8) Baso % (Auto) 0.2 (0.1-1.2) % Neut # (Auto) 6.66 H (1.56-6.13) K/mm3 Lymph # (Auto) 3.41 (1.18-3.74) K/mm3 [place] # (Auto) 1.04 H (0.24-0.36) K/mm3 Eos # (Auto) 0.00 L (0.04-0.36) K/mm3 Baso # (Auto) 0.02 (0.01-0.08) K/mm3 Manual Slide Review Abnormal smear Sodium 141 (136-145) mEq/L Potassium 2.9 L (3.5-5.1) mEq/L Chloride 103 (98-107) mEq/L Carbon Dioxide 30 (21-32) mEq/L Anion Gap 10.9 (5-15) BUN 17 (7-18) mg/dL Creatinine 0.7 (0.55-1.02) mg/dL Est Cr Clr Drug Dosing 73.51 mL/min Estimated GFR (MDRD) > 60 (>60) mL/min BUN/Creatinine Ratio 24.3 H (14-18) Glucose 124 H (74-106) mg/dL Calcium 8.9 (8.5-10.1) mg/dL Magnesium 1.6 L (1.8-2.4) mg/dl C-Reactive Protein 2.5 H* (<1.0) mg/dL Peter Results last 24 hrs: Microbiology 09/10/16 16:30 Stool Occult Blood (PETER) - Final Stool / Feces - Stool, Formed NEGATIVE OCCULT BLOOD Med Orders - Current: Current Medications Acetaminophen (Tylenol) 650 mg PO Q4H PRN PRN Reason: Pain (Mild 1-3)/fever Hydrocodone Bitart/Acetaminophen ([place] 325-5 Mg) 1 tab PO Q4H PRN PRN Reason: Pain (moderate 4-6) Last Admin: 09/09/16 08:38 Dose: 1 tab Albuterol/Ipratropium (Duoneb 3.0-0.5 Mg/3 Ml) 3 ml NEB Q4H PRN PRN Reason: Shortness Of Breath/wheezing Baclofen (Lioresal) 30 mg PO TID KHAI Last Admin: 09/11/16 08:45 Dose: 30 mg Betamethasone/Clotrimazole (Lotrisone) 0 gm TOP BID REPLACED BY [facility] Last Admin: 09/11/16 12:54 Dose: 1 applic Bisacodyl (Dulcolax) 5 mg PO DAILY PRN PRN Reason: Constipation Last Admin: 09/09/16 08:39 Dose: 5 mg Cholecalciferol (Vitamin D3) 2,000 units PO DAILY REPLACED BY [facility] Last Admin: 09/11/16 08:47 Dose: 2,000 units Docusate Sodium (Colace) 100 mg PO BID PRN PRN Reason: Constipation Enoxaparin Sodium (Lovenox) 40 mg SUBCUT DAILY REPLACED BY [facility] Last Admin: 09/11/16 08:45 Dose: 40 mg Famotidine (Pepcid) 20 mg PO BID REPLACED BY [facility] Last Admin: 09/11/16 09:00 Dose: 20 mg Fluoxetine HCl (Prozac) 10 mg PO DAILY REPLACED BY [facility] Last Admin: 09/11/16 08:46 Dose: 10 mg Hydralazine HCl (Apresoline) 20 mg IVPUSH Q4H PRN PRN Reason: Hypertension Last Admin: 09/11/16 05:43 Dose: 20 mg Hydromorphone HCl (Dilaudid) 0.25 mg IVPUSH Q2H PRN PRN Reason: Pain (severe 7-10) Promethazine HCl 12.5 mg/ (Sodium Chloride) 50.5 mls @ 100 mls/hr IV Q6H PRN PRN Reason: Nausea/Vomiting Ceftriaxone Sodium 1 gm/ (Sodium Chloride) 100 mls @ 200 mls/hr IV Q24H REPLACED BY [facility] Last Admin: 09/10/16 16:42 Dose: 200 mls/hr Lactulose (Cephulac) 10 gm PO DAILY PRN PRN Reason: CONSTIPATION Last Admin: 09/08/16 09:11 Dose: 10 gm Levetiracetam (Keppra) 1,000 mg PO BID REPLACED BY [facility] Last Admin: 09/11/16 08:44 Dose: 1,000 mg Lorazepam (Ativan) 1 mg IV Q6H PRN PRN Reason: Anxiety Last Admin: 09/09/16 16:22 Dose: 1 mg Lorazepam (Ativan) 0.25 mg PO BID REPLACED BY [facility] Last Admin: 09/11/16 08:43 Dose: 0.25 mg Magnesium Oxide (Magnesium Oxide) 400 mg PO BID REPLACED BY [facility] Last Admin: 09/11/16 08:45 Dose: 400 mg Metoclopramide HCl (Reglan) 5 mg IVPUSH TID REPLACED BY [facility] Metoprolol Tartrate (Lopressor) 5 mg IVPUSH Q4H PRN PRN Reason: Tachycardia Last Admin: 09/11/16 06:26 Dose: 5 mg Multivitamins (Thera) 1 each PO DAILY REPLACED BY [facility] Last Admin: 09/11/16 08:47 Dose: 1 each Nystatin (Nystatin Crm) 0 gm TOP BID REPLACED BY [facility] Last Admin: 09/11/16 09:14 Dose: 1 applic Ondansetron HCl (Zofran) 4 mg IV Q6H PRN PRN Reason: Nausea/Vomiting Polyethylene Glycol (Miralax) 17 gm PO DAILY PRN PRN Reason: Constipation Potassium Chloride (Potassium Chloride Solution) 20 meq PO BID REPLACED BY [facility] Last Admin: 09/11/16 08:54 Dose: 20 meq Saccharomyces Boulardii (Florastor) 250 mg PO BID REPLACED BY [facility] Last Admin: 09/11/16 08:44 Dose: 250 mg Senna/Docusate Sodium (Senna Plus) 2 tab PO BID REPLACED BY [facility] Last Admin: 09/11/16 08:47 Dose: Not Given Temazepam (Restoril) 15 mg PO BEDTIME PRN PRN Reason: Sleep Tizanidine HCl (Zanaflex) 2 mg PO TID REPLACED BY [facility] Last Admin: 09/11/16 08:47 Dose: 2 mg Discontinued Medications Acetaminophen (Tylenol) mg PO Q4HR PRN PRN Reason: Fever Baclofen (Lioresal) 30 mg GTUBE ONETIME ONE Stop: 09/07/16 17:23 Last Admin: 09/07/16 21:55 Dose: Not Given Etomidate (Amidate) Confirm Administered Dose 40 mg IVPUSH .STK-MED ONE Stop: 09/07/16 14:17 Last Admin: 09/07/16 15:58 Dose: Not Given Etomidate (Amidate) 15 mg IVPUSH ONETIME ONE Stop: 09/07/16 14:19 Last Admin: 09/07/16 14:18 Dose: 15 mg Etomidate (Amidate) 30 mg IVPUSH ONETIME ONE Stop: 09/07/16 15:01 Last Admin: 09/07/16 15:00 Dose: 30 mg Fentanyl (Sublimaze) Confirm Administered Dose 100 mcg .ROUTE .STK-MED ONE Stop: 09/07/16 14:33 Last Admin: 09/07/16 15:59 Dose: Not Given Fentanyl (Sublimaze) 100 mcg IVPUSH ONETIME ONE Stop: 09/07/16 14:31 Last Admin: 09/07/16 14:30 Dose: 100 mcg Furosemide (Lasix) 40 mg IVPUSH NOW ONE Stop: 09/07/16 16:54 Last Admin: 09/07/16 17:16 Dose: Not Given Furosemide (Lasix) Confirm Administered Dose 100 mg .ROUTE .STK-MED ONE Stop: 09/07/16 16:57 Last Admin: 09/07/16 18:25 Dose: Not Given Hydrocortisone Sodium Succinate (Solu-Cortef) 100 mg IVPUSH Q6H KHAI Last Admin: 09/10/16 06:06 Dose: 100 mg Sodium Chloride (Normal Saline) Confirm Administered Dose 1,000 mls @ as directed .ROUTE .STK-MED ONE Stop: 09/07/16 13:07 Last Admin: 09/07/16 13:15 Dose: Not Given Sodium Chloride (Normal Saline) 1,000 mls @ 999 mls/hr IV ASDIRECTED KHAI Last Admin: 09/07/16 13:04 Dose: 999 mls/hr Lactated Ringer's (Ringers, Lactated) 1,000 mls @ 999 mls/hr IV .BOLUS ONE Stop: 09/07/16 14:11 Last Admin: 09/07/16 13:13 Dose: 999 mls/hr Levofloxacin/Dextrose 750 mg/ (Premix) 150 mls @ 100 mls/hr IV ONETIME ONE Stop: 09/07/16 14:57 Last Admin: 09/07/16 13:45 Dose: 100 mls/hr Norepinephrine Bitartrate 4 mg (/ Dextrose/Water) 250 mls @ 15 mls/hr IV TITRATE KHAI; 4 MCG/MIN PRN Reason: Protocol Last Titration: 09/09/16 17:30 Dose: 0 mcg/min, 0 mls/hr Lactated Ringer's (Ringers, Lactated) 1,000 mls @ 50 mls/hr IV ASDIRECTED KHAI Last Admin: 09/11/16 04:58 Dose: 50 mls/hr Vancomycin HCl 1 gm/ Sodium (Chloride) 250 mls @ 250 mls/hr IV ONETIME ONE Stop: 09/07/16 16:52 Last Admin: 09/07/16 18:25 Dose: Not Given Vancomycin HCl 1 gm/ Sodium (Chloride) 250 mls @ 250 mls/hr IV ONETIME ONE Stop: 09/07/16 16:52 Last Admin: 09/07/16 16:36 Dose: 100 mls/hr Piperacillin Sod/Tazobactam (Sod 4.5 gm/ Sodium Chloride) 100 mls @ 25 mls/hr IV Q8H REPLACED BY [facility] Last Admin: 09/09/16 15:58 Dose: Not Given Dextrose/Sodium Chloride (Dextrose 5%-Normal Saline) 1,000 mls @ 100 mls/hr IV ASDIRECTED REPLACED BY [facility] Last Admin: 09/07/16 18:26 Dose: 100 mls/hr Piperacillin Sod/Tazobactam (Sod 4.5 gm/ Sodium Chloride) 100 mls @ 200 mls/hr IV ONETIME ONE Stop: 09/07/16 17:29 Last Admin: 09/07/16 18:26 Dose: 200 mls/hr Levofloxacin/Dextrose 500 mg/ (Premix) 100 mls @ 100 mls/hr IV Q24H REPLACED BY [facility] Last Admin: 09/09/16 08:37 Dose: 100 mls/hr Magnesium Sulfate (Magnesium Sulfate 2 Gm In Water 50 Ml) 50 mls @ 50 mls/hr IV ONETIME ONE Stop: 09/07/16 22:29 Last Admin: 09/07/16 23:25 Dose: 50 mls/hr Potassium Chloride 10 meq/ (Premix) 100 mls @ 100 mls/hr IV Q1H REPLACED BY [facility] Stop: 09/08/16 03:14 Last Admin: 09/08/16 02:04 Dose: 100 mls/hr Magnesium Sulfate (Magnesium Sulfate 2 Gm In Water 50 Ml) 50 mls @ 50 mls/hr IV ONETIME ONE Stop: 09/10/16 10:29 Last Admin: 09/10/16 10:20 Dose: 50 mls/hr Magnesium Oxide (Magnesium Oxide) 400 mg PO QPM REPLACED BY [facility] Last Admin: 09/10/16 17:06 Dose: 400 mg Magnesium Sulfate (Pharmacy To Dose - Magnesium Replacement) 1 dose .XX ASDIRECTED REPLACED BY [facility] Midazolam HCl (Versed 1 Mg/Ml) Confirm Administered Dose 2 mg .ROUTE .STK-MED ONE Stop: 09/07/16 14:11 Last Admin: 09/07/16 15:59 Dose: Not Given Midazolam HCl (Versed 1 Mg/Ml) 2 mg IVPUSH ONETIME ONE Stop: 09/07/16 14:16 Last Admin: 09/07/16 14:15 Dose: 2 mg Midazolam HCl (Versed 1 Mg/Ml) 2 mg IVPUSH ONETIME ONE Stop: 09/07/16 14:32 Last Admin: 09/07/16 14:31 Dose: 2 mg Midazolam HCl (Versed 1 Mg/Ml) 5 mg .ROUTE .STK-MED ONE Stop: 09/07/16 14:33 Ondansetron HCl (Zofran) 4 mg IVPUSH ONETIME ONE Stop: 09/07/16 13:41 Last Admin: 09/07/16 13:50 Dose: 4 mg Potassium Chloride (Pharmacy To Dose - Potassium Replacement) 1 dose .XX ASDIRECTED REPLACED BY [facility] Potassium Chloride (Klor-Con M20) 20 meq PO Q3H REPLACED BY [facility] Stop: 09/10/16 16:01 Last Admin: 09/10/16 10:20 Dose: 20 meq Potassium Chloride (Potassium Chloride Solution) 20 meq PO Q3H KHAI Stop: 09/10/16 17:01 Last Admin: 09/10/16 16:42 Dose: 20 meq Potassium Chloride (Potassium Chloride Solution) 20 meq PO ONETIME ONE Stop: 09/11/16 08:26 Last Admin: 09/11/16 08:53 Dose: 20 meq Saccharomyces Boulardii (Florastor) 250 mg PO TID REPLACED BY [facility] Last Admin: 09/07/16 22:22 Dose: Not Given Senna/Docusate Sodium (Senna Plus) 1 tab PO BID PRN PRN Reason: Constipation - Plan Plan:: Continue current TF, may require adjustment of frequency. Add Reglan if needed to improve stomach emptying.
[2016-09-11] MEDS: LORazepam 0.5 MG Tab PO SCH ×2 (08:43→21:57)
[2016-09-11] MEDS: levETIRAcetam 500 MG Tab PO SCH ×2 (08:44→21:59)
[2016-09-11] MEDS: Saccharomyces Boulardii (Probiotic) 250 MG Cap PO SCH ×2 (08:44→21:57)
[2016-09-11] MEDS: Magnesium Oxide 400 MG Tab PO SCH ×2 (08:45→21:57)
[2016-09-11] MEDS: Enoxaparin 40 MG/0.4 ML Syringe SUBCUT SCH (08:45)
[2016-09-11] MEDS: Baclofen 10 MG Tab PO SCH ×3 (08:45→21:58)
[2016-09-11] MEDS: FLUoxetine 10 MG Cap PO SCH (08:46)
[2016-09-11] MEDS: Multivitamins,Therapeutic Tab PO SCH (08:47)
[2016-09-11] MEDS: Cholecalciferol (Vitamin D3) 1,000 Unit Tab PO SCH (08:47)
[2016-09-11] MEDS: tiZANidine 4 MG Tab PO SCH ×3 (08:47→21:58)
--- NOTE | 2016-09-11 08:49 | CR ---
Chest: Portable view of the chest was obtained. Comparison: Previous chest x-ray of 09/07/16. Heart size and mediastinum are within normal limits. Lungs are clear. Bony structures are grossly intact. Gastrostomy tube is seen within the upper abdomen. Previous PICC line is again noted with tip lying at the right atrial and superior vena cava junction. Impression: 1. Incidental findings as noted above. Nothing acute is appreciated on frontal chest x-ray. Diagnostic code #2
--- NOTE | 2016-09-11 08:49 | CR ---
Abdomen: Portable supine view of the abdomen was obtained. Comparison: Previous abdominal x-ray of 07/21/15. Gastrostomy tube is seen. Bowel gas pattern appears normal. Calcifications are seen within the pelvis which are felt compatible with phleboliths. Slight degenerative change is noted within the spine. Impression: 1. Incidental findings. Diagnostic code #2
[2016-09-11] MEDS: Potassium Chloride 10% 20 MEQ/15 ML Soln 15 ML UD Cup PO SCH ×2 (08:54→21:57)
[2016-09-11] MEDS: Famotidine 20 MG Tab PO SCH ×2 (09:00→21:57)
[2016-09-11] MEDS: Nystatin Crm 30 GM Tube TOP SCH ×2 (09:14→22:00)
[2016-09-11] MEDS: Betamethasone Dipropionate/Clotrimazole 0.05-1% Crm 15 GM Tube TOP SCH ×2 (12:54→21:59)
[2016-09-11] MEDS: Metoclopramide 10 MG/2 ML SDV IVPUSH SCH ×2 (14:31→21:57)
[2016-09-11] MEDS: cefTRIAXone 1 GM in Sodium Chloride 0.9% 100 ML IV SCH (16:00)
--- NOTE | 2016-09-12 07:50 | PCM.DCSUM1 ---
<Sabra Wadsworth - Last Filed: 09/12/16 08:29> Discharge Summary - Hospital Course Free Text/Narrative:: This is a 55-year-old white female with past medical history of MS, Dysphagia S/ p PEG tube placement, chronic urinary tract infection, urinary incontinence, chronic constipation, chronic back pain, nausea arthritis, osteoporosis, Alzheimer's disease, history of CVA, seizure disorder, MS, history of chronic thromboembolism, history of depression, insomnia, type 2 diabetes, chronic anemia, and eosinophilia who comes from a local half-way due to acute febrile illness and declining overall health. On presentation to the emergency department patient was found to be severely hypotensive with blood pressure as low at 57/37 mmHg. Her initial workup in the emergency department shows a CBC remarkable for WBC of 13.020, RBC of 2.9, hemoglobin of 8.5, hematocrit of 26.5, and neutrophils of 78%. PT of 10.3 and INR of 0.95. Her ABG shows a pH of 7.44, PCO2 of 34, PO2 of 94, HCO3 of 22.8 and O2 sat of 98.8% on 5 L nasal cannula. Her chemistry is remarkable for glucose of 112, lactic acid of 1.8, magnesium of 1.7, CRP of 10 and albumin of 2.2. CK-MB and troponin 1 were both negative. Her initial chest x-ray shows nothing acute seen. Patient is currently sedated from meds she got in ED. Central line access was attempted in ED but w/o any success. Patient is being admitted for Urosepsis with Septic shock. She is DNR per ED medical documentation. - Discharge Data Discharge Date: 09/12/16 (admit date 09/07/16) Discharge Disposition: [place] [facility] [place] [id number] Condition: Undetermined - Discharge Diagnosis/Problem(s) (1) UTI, Urinary tract infectious disease SNOMED Code(s): 78771252 ICD Code: N39.0 - URINARY TRACT INFECTION, SITE NOT SPECIFIED Status: Acute Priority: High Current Visit: Yes (2) Septic shock SNOMED Code(s): 33419234 ICD Code: A41.9 - SEPSIS, UNSPECIFIED ORGANISM; R65.21 - SEVERE SEPSIS WITH SEPTIC SHOCK Status: Resolved Priority: High Current Visit: Yes (3) Nonverbal SNOMED Code(s): 303244039 ICD Code: R47.01 - APHASIA Status: Chronic Priority: Medium Current Visit: Yes (4) Dysphagia SNOMED Code(s): 80932179, 860333203 ICD Code: R13.10 - DYSPHAGIA, UNSPECIFIED Status: Chronic Priority: Medium Current Visit: No (5) Multiple sclerosis SNOMED Code(s): 55326851 ICD Code: G35 - MULTIPLE SCLEROSIS Status: Chronic Priority: Medium Current Visit: No - Patient Summary/Data Operative Procedure(s) Performed: None Complications: None Consults: Consultations 09/07/16 16:25 Consult to Case Management [CONS] Routine Consult to Worm Sorter [CONS] Routine Consult to Spiritual Care [CONS] Routine OT Evaluation and Treatment [CONS] Routine PT Evaluation and Treatment [CONS] Routine Respiratory Care Assess and Treatment [CONS] Routine 09/07/16 21:00 Consult to Dietary [Consult to Pediatric Surgeon] [CONS] Routine 09/08/16 07:40 PT Evaluation and Treatment [CONS] Routine Labs Pending at D/C: None Recommended Follow-up Testing/Procedures: Physical , Occupation therapies to eval & treat Dietary to eval and treat feeding needs-- feedings changed to pump during hospital stay with better tolerability Follow up with PCP, Dr. Khan or MADELAINE Marion within one week of discharge Labs in one week; ANDRE and Planned Operative Procedure(s) after DC: None Hospital Course: As above - Patient Instructions Diet, Other: Usual feeding tube feedings Activity: As Tolerated Showering/Bathing: May Shower Notify Provider of: Fever, Increased Pain, Nausea and/or Vomiting - Discharge Plan Prescriptions/Med Rec: Betamethasone/Clotrimazole [Lotrisone] 0 gm TOP BID #1 tube Cefuroxime [Ceftin] 500 mg PO BID #20 tablet Magnesium Oxide 400 mg PO BID #60 tablet Potassium Chloride [Potassium Chloride Solution] 20 meq PO BID #30 cup Home Medications: Home Meds Baclofen 30 mg PO TID 04/06/14 [History] FLUoxetine [PROzac] 10 mg PO DAILY 04/06/14 [History] LORazepam [Ativan] 0.25 mg PO BID 04/06/14 [History] tiZANidine HCl [Zanaflex] 2 mg PO TID 04/06/14 [History] Acetaminophen [Tylenol] 2 tab PO Q4HR PRN 06/30/14 [History] Cholecalciferol (Vitamin D3) [Vitamin D3] 2,000 unit PO DAILY 06/30/14 [History] Docusate Sodium/Sennosides [Senna Plus] 2 tab PO BID 06/30/14 [History] Multivitamin with Minerals [Multiple Vitamin] 1 tab PO DAILY 06/30/14 [History] levETIRAcetam [Keppra] 1,000 mg PO BID 06/30/14 [History] Lactulose [Chronulac] 15 ml PO DAILY PRN 08/05/14 [History] Nystatin [Nystatin Crm] 1 applic TOP BID 09/07/16 [History] Betamethasone/Clotrimazole [Lotrisone] 0 gm TOP BID #1 tube 09/12/16 [Rx] Cefuroxime [Ceftin] 500 mg PO BID #20 tablet 09/12/16 [Rx] Magnesium Oxide 400 mg PO BID #60 tablet 09/12/16 [Rx] Potassium Chloride [Potassium Chloride Solution] 20 meq PO BID #30 cup 09/12/16 [Rx] Patient Handouts: Urinary Tract Infection, Adult, Unah-um-Phex, Septic Shock Forms: ED Department Discharge Referrals: Tanesha Roberts NP [Ordering Only Provider] - Ron Khan MD [Physician] - - Discharge Summary/Plan Comment DC Time >30 min.: Yes (40 min) - Patient Data Vitals - Most Recent: Last Vital Signs Temp 98.1 F 09/11/16 23:35 Pulse 106 H 09/11/16 23:35 Resp 20 09/11/16 23:35 BP 106/55 L 09/11/16 23:35 Pulse Ox 95 09/11/16 23:35 Weight - Most Recent: 74.162 kg I&O - Last 24 hours: Intake & Output 09/11/16 09/12/16 09/12/16 22:59 06:59 14:59 Intake Total 1050 Output Total 1375 Balance -325 Lab Results - Last 24 hrs: Laboratory Results - last 24 hr 09/11/16 09/11/16 09/12/16 Range/Units 08:10 08:10 06:08 WBC 11.23 H 9.93 (3.98-10.04) K/mm3 RBC 3.89 L 3.89 L (3.98-5.22) M/mm3 Hgb 11.1 L 11.2 (11.2-15.7) gm/L Hct 34.5 34.6 (34.1-44.9) % MCV 88.7 88.9 (79.4-94.8) fl MCH 28.5 28.8 (25.6-32.2) pg MCHC 32.2 32.4 (32.2-35.5) g/dl RDW Std Deviation 53.7 H 55.0 H (36.4-46.3) fL Plt Count 294 312 (182-369) K/mm3 MPV 9.9 10.1 (9.4-12.3) fl Neut % (Auto) 59.2 51.9 (34.0-71.1) % Lymph % (Auto) 30.4 39.2 (19.3-51.7) % Gregg % (Auto) 9.3 7.3 (4.7-12.5) % Eos % (Auto) 0 L 0.7 (0.7-5.8) Baso % (Auto) 0.2 0.2 (0.1-1.2) % Neut # (Auto) 6.66 H 5.16 (1.56-6.13) K/mm3 Lymph # (Auto) 3.41 3.89 H (1.18-3.74) K/mm3 Gregg # (Auto) 1.04 H 0.72 H (0.24-0.36) K/mm3 Eos # (Auto) 0.00 L 0.07 (0.04-0.36) K/mm3 Baso # (Auto) 0.02 0.02 (0.01-0.08) K/mm3 Manual Slide Review Abnormal smear Abnormal smear Sodium 141 (136-145) mEq/L Potassium 2.9 L (3.5-5.1) mEq/L Chloride 103 (98-107) mEq/L Carbon Dioxide 30 (21-32) mEq/L Anion Gap 10.9 (5-15) BUN 17 (7-18) mg/dL Creatinine 0.7 (0.55-1.02) mg/dL Est Cr Clr Drug Dosing 73.51 mL/min Estimated GFR (MDRD) > 60 (>60) mL/min BUN/Creatinine Ratio 24.3 H (14-18) Glucose 124 H (74-106) mg/dL Calcium 8.9 (8.5-10.1) mg/dL Magnesium 1.6 L (1.8-2.4) mg/dl C-Reactive Protein 2.5 H* (<1.0) mg/dL 09/12/16 Range/Units 06:08 WBC (3.98-10.04) K/mm3 RBC (3.98-5.22) M/mm3 Hgb (11.2-15.7) gm/L Hct (34.1-44.9) % MCV (79.4-94.8) fl MCH (25.6-32.2) pg MCHC (32.2-35.5) g/dl RDW Std Deviation (36.4-46.3) fL Plt Count (182-369) K/mm3 MPV (9.4-12.3) fl Neut % (Auto) (34.0-71.1) % Lymph % (Auto) (19.3-51.7) % Gregg % (Auto) (4.7-12.5) % Eos % (Auto) (0.7-5.8) Baso % (Auto) (0.1-1.2) % Neut # (Auto) (1.56-6.13) K/mm3 Lymph # (Auto) (1.18-3.74) K/mm3 Gregg # (Auto) (0.24-0.36) K/mm3 Eos # (Auto) (0.04-0.36) K/mm3 Baso # (Auto) (0.01-0.08) K/mm3 Manual Slide Review Sodium 142 (136-145) mEq/L Potassium 3.5 (3.5-5.1) mEq/L Chloride 105 (98-107) mEq/L Carbon Dioxide 25 (21-32) mEq/L Anion Gap 15.5 H (5-15) BUN 17 (7-18) mg/dL Creatinine 0.7 (0.55-1.02) mg/dL Est Cr Clr Drug Dosing 73.51 mL/min Estimated GFR (MDRD) > 60 (>60) mL/min BUN/Creatinine Ratio 24.3 H (14-18) Glucose 96 (74-106) mg/dL Calcium 9.3 (8.5-10.1) mg/dL Magnesium 1.8 (1.8-2.4) mg/dl C-Reactive Protein (<1.0) mg/dL Med Orders - Current: Current Medications Acetaminophen (Tylenol) 650 mg PO Q4H PRN PRN Reason: Pain (Mild 1-3)/fever Hydrocodone Bitart/Acetaminophen (Novelty 325-5 Mg) 1 tab PO Q4H PRN PRN Reason: Pain (moderate 4-6) Last Admin: 09/09/16 08:38 Dose: 1 tab Albuterol/Ipratropium (Duoneb 3.0-0.5 Mg/3 Ml) 3 ml NEB Q4H PRN PRN Reason: Shortness Of Breath/wheezing Baclofen (Lioresal) 30 mg PO TID [facility] Last Admin: 09/11/16 21:58 Dose: 30 mg Betamethasone/Clotrimazole (Lotrisone) 0 gm TOP BID [facility] Last Admin: 09/11/16 21:59 Dose: 1 applic Bisacodyl (Dulcolax) 5 mg PO DAILY PRN PRN Reason: Constipation Last Admin: 09/09/16 08:39 Dose: 5 mg Cholecalciferol (Vitamin D3) 2,000 units PO DAILY [facility] Last Admin: 09/11/16 08:47 Dose: 2,000 units Docusate Sodium (Colace) 100 mg PO BID PRN PRN Reason: Constipation Enoxaparin Sodium (Lovenox) 40 mg SUBCUT DAILY [facility] Last Admin: 09/11/16 08:45 Dose: 40 mg Famotidine (Pepcid) 20 mg PO BID [facility] Last Admin: 09/11/16 21:57 Dose: 20 mg Fluoxetine HCl (Prozac) 10 mg PO DAILY [facility] Last Admin: 09/11/16 08:46 Dose: 10 mg Hydralazine HCl (Apresoline) 20 mg IVPUSH Q4H PRN PRN Reason: Hypertension Last Admin: 09/11/16 05:43 Dose: 20 mg Hydromorphone HCl (Dilaudid) 0.25 mg IVPUSH Q2H PRN PRN Reason: Pain (severe 7-10) Promethazine HCl 12.5 mg/ (Sodium Chloride) 50.5 mls @ 100 mls/hr IV Q6H PRN PRN Reason: Nausea/Vomiting Ceftriaxone Sodium 1 gm/ (Sodium Chloride) 100 mls @ 200 mls/hr IV Q24H [facility] Last Admin: 09/11/16 16:00 Dose: 200 mls/hr Lactulose (Cephulac) 10 gm PO DAILY PRN PRN Reason: CONSTIPATION Last Admin: 09/08/16 09:11 Dose: 10 gm Levetiracetam (Keppra) 1,000 mg PO BID [facility] Last Admin: 09/11/16 21:59 Dose: 1,000 mg Lorazepam (Ativan) 1 mg IV Q6H PRN PRN Reason: Anxiety Last Admin: 09/09/16 16:22 Dose: 1 mg Lorazepam (Ativan) 0.25 mg PO BID [facility] Last Admin: 09/11/16 21:57 Dose: 0.25 mg Magnesium Oxide (Magnesium Oxide) 400 mg PO BID [facility] Last Admin: 09/11/16 21:57 Dose: 400 mg Magnesium Oxide (Magnesium Oxide) 400 mg PO ONETIME ONE Stop: 09/12/16 08:01 Metoclopramide HCl (Reglan) 5 mg IVPUSH TID [facility] Last Admin: 09/11/16 21:57 Dose: 5 mg Metoprolol Tartrate (Lopressor) 5 mg IVPUSH Q4H PRN PRN Reason: Tachycardia Last Admin: 09/11/16 06:26 Dose: 5 mg Multivitamins (Thera) 1 each PO DAILY [facility] Last Admin: 09/11/16 08:47 Dose: 1 each Nystatin (Nystatin Crm) 0 gm TOP BID [facility] Last Admin: 09/11/16 22:00 Dose: 1 applic Ondansetron HCl (Zofran) 4 mg IV Q6H PRN PRN Reason: Nausea/Vomiting Polyethylene Glycol (Miralax) 17 gm PO DAILY PRN PRN Reason: Constipation Potassium Chloride (Potassium Chloride Solution) 20 meq PO BID [facility] Last Admin: 09/11/16 21:57 Dose: 20 meq Saccharomyces Boulardii (Florastor) 250 mg PO BID [facility] Last Admin: 09/11/16 21:57 Dose: 250 mg Senna/Docusate Sodium (Senna Plus) 2 tab PO BID [facility] Last Admin: 09/11/16 22:31 Dose: Not Given Temazepam (Restoril) 15 mg PO BEDTIME PRN PRN Reason: Sleep Tizanidine HCl (Zanaflex) 2 mg PO TID [facility] Last Admin: 09/11/16 21:58 Dose: 2 mg Discontinued Medications Acetaminophen (Tylenol) mg PO Q4HR PRN PRN Reason: Fever Baclofen (Lioresal) 30 mg GTUBE ONETIME ONE Stop: 09/07/16 17:23 Last Admin: 09/07/16 21:55 Dose: Not Given Etomidate (Amidate) Confirm Administered Dose 40 mg IVPUSH .STK-MED ONE Stop: 09/07/16 14:17 Last Admin: 09/07/16 15:58 Dose: Not Given Etomidate (Amidate) 15 mg IVPUSH ONETIME ONE Stop: 09/07/16 14:19 Last Admin: 09/07/16 14:18 Dose: 15 mg Etomidate (Amidate) 30 mg IVPUSH ONETIME ONE Stop: 09/07/16 15:01 Last Admin: 09/07/16 15:00 Dose: 30 mg Fentanyl (Sublimaze) Confirm Administered Dose 100 mcg .ROUTE .STK-MED ONE Stop: 09/07/16 14:33 Last Admin: 09/07/16 15:59 Dose: Not Given Fentanyl (Sublimaze) 100 mcg IVPUSH ONETIME ONE Stop: 09/07/16 14:31 Last Admin: 09/07/16 14:30 Dose: 100 mcg Furosemide (Lasix) 40 mg IVPUSH NOW ONE Stop: 09/07/16 16:54 Last Admin: 09/07/16 17:16 Dose: Not Given Furosemide (Lasix) Confirm Administered Dose 100 mg .ROUTE .STK-MED ONE Stop: 09/07/16 16:57 Last Admin: 09/07/16 18:25 Dose: Not Given Hydrocortisone Sodium Succinate (Solu-Cortef) 100 mg IVPUSH Q6H [facility] Last Admin: 09/10/16 06:06 Dose: 100 mg Sodium Chloride (Normal Saline) Confirm Administered Dose 1,000 mls @ as directed .ROUTE .STK-MED ONE Stop: 09/07/16 13:07 Last Admin: 09/07/16 13:15 Dose: Not Given Sodium Chloride (Normal Saline) 1,000 mls @ 999 mls/hr IV ASDIRECTED [facility] Last Admin: 09/07/16 13:04 Dose: 999 mls/hr Lactated Ringer's (Ringers, Lactated) 1,000 mls @ 999 mls/hr IV .BOLUS ONE Stop: 09/07/16 14:11 Last Admin: 09/07/16 13:13 Dose: 999 mls/hr Levofloxacin/Dextrose 750 mg/ (Premix) 150 mls @ 100 mls/hr IV ONETIME ONE Stop: 09/07/16 14:57 Last Admin: 09/07/16 13:45 Dose: 100 mls/hr Norepinephrine Bitartrate 4 mg (/ Dextrose/Water) 250 mls @ 15 mls/hr IV TITRATE KHAI; 4 MCG/MIN PRN Reason: Protocol Last Titration: 09/09/16 17:30 Dose: 0 mcg/min, 0 mls/hr Lactated Ringer's (Ringers, Lactated) 1,000 mls @ 50 mls/hr IV ASDIRECTED [facility] Last Admin: 09/11/16 04:58 Dose: 50 mls/hr Vancomycin HCl 1 gm/ Sodium (Chloride) 250 mls @ 250 mls/hr IV ONETIME ONE Stop: 09/07/16 16:52 Last Admin: 09/07/16 18:25 Dose: Not Given Vancomycin HCl 1 gm/ Sodium (Chloride) 250 mls @ 250 mls/hr IV ONETIME ONE Stop: 09/07/16 16:52 Last Admin: 09/07/16 16:36 Dose: 100 mls/hr Piperacillin Sod/Tazobactam (Sod 4.5 gm/ Sodium Chloride) 100 mls @ 25 mls/hr IV Q8H [facility] Last Admin: 09/09/16 15:58 Dose: Not Given Dextrose/Sodium Chloride (Dextrose 5%-Normal Saline) 1,000 mls @ 100 mls/hr IV ASDIRECTED [facility] Last Admin: 09/07/16 18:26 Dose: 100 mls/hr Piperacillin Sod/Tazobactam (Sod 4.5 gm/ Sodium Chloride) 100 mls @ 200 mls/hr IV ONETIME ONE Stop: 09/07/16 17:29 Last Admin: 09/07/16 18:26 Dose: 200 mls/hr Levofloxacin/Dextrose 500 mg/ (Premix) 100 mls @ 100 mls/hr IV Q24H [facility] Last Admin: 09/09/16 08:37 Dose: 100 mls/hr Magnesium Sulfate (Magnesium Sulfate 2 Gm In Water 50 Ml) 50 mls @ 50 mls/hr IV ONETIME ONE Stop: 09/07/16 22:29 Last Admin: 09/07/16 23:25 Dose: 50 mls/hr Potassium Chloride 10 meq/ (Premix) 100 mls @ 100 mls/hr IV Q1H [facility] Stop: 09/08/16 03:14 Last Admin: 09/08/16 02:04 Dose: 100 mls/hr Magnesium Sulfate (Magnesium Sulfate 2 Gm In Water 50 Ml) 50 mls @ 50 mls/hr IV ONETIME ONE Stop: 09/10/16 10:29 Last Admin: 09/10/16 10:20 Dose: 50 mls/hr Magnesium Oxide (Magnesium Oxide) 400 mg PO QPM [facility] Last Admin: 09/10/16 17:06 Dose: 400 mg Magnesium Sulfate (Pharmacy To Dose - Magnesium Replacement) 1 dose .XX ASDIRECTED [facility] Midazolam HCl (Versed 1 Mg/Ml) Confirm Administered Dose 2 mg .ROUTE .STK-MED ONE Stop: 09/07/16 14:11 Last Admin: 09/07/16 15:59 Dose: Not Given Midazolam HCl (Versed 1 Mg/Ml) 2 mg IVPUSH ONETIME ONE Stop: 09/07/16 14:16 Last Admin: 09/07/16 14:15 Dose: 2 mg Midazolam HCl (Versed 1 Mg/Ml) 2 mg IVPUSH ONETIME ONE Stop: 09/07/16 14:32 Last Admin: 09/07/16 14:31 Dose: 2 mg Midazolam HCl (Versed 1 Mg/Ml) 5 mg .ROUTE .STK-MED ONE Stop: 09/07/16 14:33 Ondansetron HCl (Zofran) 4 mg IVPUSH ONETIME ONE Stop: 09/07/16 13:41 Last Admin: 09/07/16 13:50 Dose: 4 mg Potassium Chloride (Pharmacy To Dose - Potassium Replacement) 1 dose .XX ASDIRECTED [facility] Potassium Chloride (Klor-Con M20) 20 meq PO Q3H [facility] Stop: 09/10/16 16:01 Last Admin: 09/10/16 10:20 Dose: 20 meq Potassium Chloride (Potassium Chloride Solution) 20 meq PO Q3H [facility] Stop: 09/10/16 17:01 Last Admin: 09/10/16 16:42 Dose: 20 meq Potassium Chloride (Potassium Chloride Solution) 20 meq PO ONETIME ONE Stop: 09/11/16 08:26 Last Admin: 09/11/16 08:53 Dose: 20 meq Saccharomyces Boulardii (Florastor) 250 mg PO TID [facility] Last Admin: 09/07/16 22:22 Dose: Not Given Senna/Docusate Sodium (Senna Plus) 1 tab PO BID PRN PRN Reason: Constipation *Q Meaningful Use (DIS) - VTE *Q VTE Criteria *Q: - Stroke *Q Stroke Criteria *Q: - AMI *Q AMI Criteria *Q: <Kailey Winston - Last Filed: 09/12/16 12:59> Discharge Summary - Hospital Course Free Text/Narrative:: Agree with summary, ready for DC. - Patient Summary/Data Consults: Consultations 09/07/16 16:25 Consult to Case Management [CONS] Routine Consult to Worm Sorter [CONS] Routine Consult to Spiritual Care [CONS] Routine OT Evaluation and Treatment [CONS] Routine PT Evaluation and Treatment [CONS] Routine Respiratory Care Assess and Treatment [CONS] Routine 09/07/16 21:00 Consult to Dietary [Consult to Pediatric Surgeon] [CONS] Routine 09/08/16 07:40 PT Evaluation and Treatment [CONS] Routine - Patient Data Vitals - Most Recent: Last Vital Signs Temp 36.2 C 09/12/16 08:40 Pulse 103 H 09/12/16 08:40 Resp 22 H 09/12/16 08:40 BP 122/78 09/12/16 08:40 Pulse Ox 96 09/12/16 08:40 I&O - Last 24 hours: Intake & Output 09/11/16 09/12/16 09/12/16 22:59 06:59 14:59 Intake Total 1050 415 Output Total 1375 850 Balance -325 -435 Lab Results - Last 24 hrs: Laboratory Results - last 24 hr 09/12/16 09/12/16 Range/Units 06:08 06:08 WBC 9.93 (3.98-10.04) K/mm3 RBC 3.89 L (3.98-5.22) M/mm3 Hgb 11.2 (11.2-15.7) gm/L Hct 34.6 (34.1-44.9) % MCV 88.9 (79.4-94.8) fl MCH 28.8 (25.6-32.2) pg MCHC 32.4 (32.2-35.5) g/dl RDW Std Deviation 55.0 H (36.4-46.3) fL Plt Count 312 (182-369) K/mm3 MPV 10.1 (9.4-12.3) fl Neut % (Auto) 51.9 (34.0-71.1) % Lymph % (Auto) 39.2 (19.3-51.7) % Gregg % (Auto) 7.3 (4.7-12.5) % Eos % (Auto) 0.7 (0.7-5.8) Baso % (Auto) 0.2 (0.1-1.2) % Neut # (Auto) 5.16 (1.56-6.13) K/mm3 Lymph # (Auto) 3.89 H (1.18-3.74) K/mm3 Gregg # (Auto) 0.72 H (0.24-0.36) K/mm3 Eos # (Auto) 0.07 (0.04-0.36) K/mm3 Baso # (Auto) 0.02 (0.01-0.08) K/mm3 Manual Slide Review Abnormal smear Sodium 142 (136-145) mEq/L Potassium 3.5 (3.5-5.1) mEq/L Chloride 105 (98-107) mEq/L Carbon Dioxide 25 (21-32) mEq/L Anion Gap 15.5 H (5-15) BUN 17 (7-18) mg/dL Creatinine 0.7 (0.55-1.02) mg/dL Est Cr Clr Drug Dosing 73.51 mL/min Estimated GFR (MDRD) > 60 (>60) mL/min BUN/Creatinine Ratio 24.3 H (14-18) Glucose 96 (74-106) mg/dL Calcium 9.3 (8.5-10.1) mg/dL Magnesium 1.8 (1.8-2.4) mg/dl Med Orders - Current: Current Medications Acetaminophen (Tylenol) 650 mg PO Q4H PRN PRN Reason: Pain (Mild 1-3)/fever Hydrocodone Bitart/Acetaminophen (Novelty 325-5 Mg) 1 tab PO Q4H PRN PRN Reason: Pain (moderate 4-6) Last Admin: 09/09/16 08:38 Dose: 1 tab Albuterol/Ipratropium (Duoneb 3.0-0.5 Mg/3 Ml) 3 ml NEB Q4H PRN PRN Reason: Shortness Of Breath/wheezing Baclofen (Lioresal) 30 mg PO TID [facility] Last Admin: 09/12/16 10:36 Dose: 30 mg Betamethasone/Clotrimazole (Lotrisone) 0 gm TOP BID [facility] Last Admin: 09/12/16 10:39 Dose: 1 applic Bisacodyl (Dulcolax) 5 mg PO DAILY PRN PRN Reason: Constipation Last Admin: 09/09/16 08:39 Dose: 5 mg Cholecalciferol (Vitamin D3) 2,000 units PO DAILY [facility] Last Admin: 09/12/16 10:38 Dose: 2,000 units Docusate Sodium (Colace) 100 mg PO BID PRN PRN Reason: Constipation Enoxaparin Sodium (Lovenox) 40 mg SUBCUT DAILY [facility] Last Admin: 09/12/16 10:38 Dose: 40 mg Famotidine (Pepcid) 20 mg PO BID [facility] Last Admin: 09/12/16 10:38 Dose: 20 mg Fluoxetine HCl (Prozac) 10 mg PO DAILY [facility] Last Admin: 09/12/16 10:38 Dose: 10 mg Hydralazine HCl (Apresoline) 20 mg IVPUSH Q4H PRN PRN Reason: Hypertension Last Admin: 09/11/16 05:43 Dose: 20 mg Hydromorphone HCl (Dilaudid) 0.25 mg IVPUSH Q2H PRN PRN Reason: Pain (severe 7-10) Promethazine HCl 12.5 mg/ (Sodium Chloride) 50.5 mls @ 100 mls/hr IV Q6H PRN PRN Reason: Nausea/Vomiting Ceftriaxone Sodium 1 gm/ (Sodium Chloride) 100 mls @ 200 mls/hr IV Q24H [facility] Last Admin: 09/11/16 16:00 Dose: 200 mls/hr Lactulose (Cephulac) 10 gm PO DAILY PRN PRN Reason: CONSTIPATION Last Admin: 09/08/16 09:11 Dose: 10 gm Levetiracetam (Keppra) 1,000 mg PO BID [facility] Last Admin: 09/12/16 10:37 Dose: 1,000 mg Lorazepam (Ativan) 1 mg IV Q6H PRN PRN Reason: Anxiety Last Admin: 09/09/16 16:22 Dose: 1 mg Lorazepam (Ativan) 0.25 mg PO BID [facility] Last Admin: 09/12/16 10:36 Dose: 0.25 mg Magnesium Oxide (Magnesium Oxide) 400 mg PO BID [facility] Last Admin: 09/12/16 10:34 Dose: 400 mg Metoclopramide HCl (Reglan) 5 mg IVPUSH TID [facility] Last Admin: 09/12/16 10:40 Dose: 5 mg Metoprolol Tartrate (Lopressor) 5 mg IVPUSH Q4H PRN PRN Reason: Tachycardia Last Admin: 09/11/16 06:26 Dose: 5 mg Multivitamins (Thera) 1 each PO DAILY [facility] Last Admin: 09/12/16 10:35 Dose: 1 each Nystatin (Nystatin Crm) 0 gm TOP BID [facility] Last Admin: 09/12/16 10:39 Dose: 1 applic Ondansetron HCl (Zofran) 4 mg IV Q6H PRN PRN Reason: Nausea/Vomiting Polyethylene Glycol (Miralax) 17 gm PO DAILY PRN PRN Reason: Constipation Potassium Chloride (Potassium Chloride Solution) 20 meq PO BID [facility] Last Admin: 09/12/16 10:40 Dose: 20 meq Saccharomyces Boulardii (Florastor) 250 mg PO BID [facility] Last Admin: 09/12/16 10:37 Dose: 250 mg Senna/Docusate Sodium (Senna Plus) 2 tab PO BID [facility] Last Admin: 09/12/16 10:36 Dose: 2 tab Temazepam (Restoril) 15 mg PO BEDTIME PRN PRN Reason: Sleep Tizanidine HCl (Zanaflex) 2 mg PO TID [facility] Last Admin: 09/12/16 10:37 Dose: 2 mg Discontinued Medications Acetaminophen (Tylenol) mg PO Q4HR PRN PRN Reason: Fever Baclofen (Lioresal) 30 mg GTUBE ONETIME ONE Stop: 09/07/16 17:23 Last Admin: 09/07/16 21:55 Dose: Not Given Etomidate (Amidate) Confirm Administered Dose 40 mg IVPUSH .STK-MED ONE Stop: 09/07/16 14:17 Last Admin: 09/07/16 15:58 Dose: Not Given Etomidate (Amidate) 15 mg IVPUSH ONETIME ONE Stop: 09/07/16 14:19 Last Admin: 09/07/16 14:18 Dose: 15 mg Etomidate (Amidate) 30 mg IVPUSH ONETIME ONE Stop: 09/07/16 15:01 Last Admin: 09/07/16 15:00 Dose: 30 mg Fentanyl (Sublimaze) Confirm Administered Dose 100 mcg .ROUTE .STK-MED ONE Stop: 09/07/16 14:33 Last Admin: 09/07/16 15:59 Dose: Not Given Fentanyl (Sublimaze) 100 mcg IVPUSH ONETIME ONE Stop: 09/07/16 14:31 Last Admin: 09/07/16 14:30 Dose: 100 mcg Furosemide (Lasix) 40 mg IVPUSH NOW ONE Stop: 09/07/16 16:54 Last Admin: 09/07/16 17:16 Dose: Not Given Furosemide (Lasix) Confirm Administered Dose 100 mg .ROUTE .STK-MED ONE Stop: 09/07/16 16:57 Last Admin: 09/07/16 18:25 Dose: Not Given Hydrocortisone Sodium Succinate (Solu-Cortef) 100 mg IVPUSH Q6H [facility], [facility] Last Admin: 09/10/16 06:06 Dose: 100 mg Sodium Chloride (Normal Saline) Confirm Administered Dose 1,000 mls @ as directed .ROUTE .STK-MED ONE Stop: 09/07/16 13:07 Last Admin: 09/07/16 13:15 Dose: Not Given Sodium Chloride (Normal Saline) 1,000 mls @ 999 mls/hr IV ASDIRECTED KHAI Last Admin: 09/07/16 13:04 Dose: 999 mls/hr Lactated Ringer's (Ringers, Lactated) 1,000 mls @ 999 mls/hr IV .BOLUS ONE Stop: 09/07/16 14:11 Last Admin: 09/07/16 13:13 Dose: 999 mls/hr Levofloxacin/Dextrose 750 mg/ (Premix) 150 mls @ 100 mls/hr IV ONETIME ONE Stop: 09/07/16 14:57 Last Admin: 09/07/16 13:45 Dose: 100 mls/hr Norepinephrine Bitartrate 4 mg (/ Dextrose/Water) 250 mls @ 15 mls/hr IV TITRATE KHAI; 4 MCG/MIN PRN Reason: Protocol Last Titration: 09/09/16 17:30 Dose: 0 mcg/min, 0 mls/hr Lactated Ringer's (Ringers, Lactated) 1,000 mls @ 50 mls/hr IV ASDIRECTED [facility] Last Admin: 09/11/16 04:58 Dose: 50 mls/hr Vancomycin HCl 1 gm/ Sodium (Chloride) 250 mls @ 250 mls/hr IV ONETIME ONE Stop: 09/07/16 16:52 Last Admin: 09/07/16 18:25 Dose: Not Given Vancomycin HCl 1 gm/ Sodium (Chloride) 250 mls @ 250 mls/hr IV ONETIME ONE Stop: 09/07/16 16:52 Last Admin: 09/07/16 16:36 Dose: 100 mls/hr Piperacillin Sod/Tazobactam (Sod 4.5 gm/ Sodium Chloride) 100 mls @ 25 mls/hr IV Q8H [facility] Last Admin: 09/09/16 15:58 Dose: Not Given Dextrose/Sodium Chloride (Dextrose 5%-Normal Saline) 1,000 mls @ 100 mls/hr IV ASDIRECTED [facility] Last Admin: 09/07/16 18:26 Dose: 100 mls/hr Piperacillin Sod/Tazobactam (Sod 4.5 gm/ Sodium Chloride) 100 mls @ 200 mls/hr IV ONETIME ONE Stop: 09/07/16 17:29 Last Admin: 09/07/16 18:26 Dose: 200 mls/hr Levofloxacin/Dextrose 500 mg/ (Premix) 100 mls @ 100 mls/hr IV Q24H [facility] Last Admin: 09/09/16 08:37 Dose: 100 mls/hr Magnesium Sulfate (Magnesium Sulfate 2 Gm In Water 50 Ml) 50 mls @ 50 mls/hr IV ONETIME ONE Stop: 09/07/16 22:29 Last Admin: 09/07/16 23:25 Dose: 50 mls/hr Potassium Chloride 10 meq/ (Premix) 100 mls @ 100 mls/hr IV Q1H [facility] Stop: 09/08/16 03:14 Last Admin: 09/08/16 02:04 Dose: 100 mls/hr Magnesium Sulfate (Magnesium Sulfate 2 Gm In Water 50 Ml) 50 mls @ 50 mls/hr IV ONETIME ONE Stop: 09/10/16 10:29 Last Admin: 09/10/16 10:20 Dose: 50 mls/hr Magnesium Oxide (Magnesium Oxide) 400 mg PO QPM [facility] Last Admin: 09/10/16 17:06 Dose: 400 mg Magnesium Oxide (Magnesium Oxide) 400 mg PO ONETIME ONE Stop: 09/12/16 08:01 Last Admin: 09/12/16 10:34 Dose: 400 mg Magnesium Sulfate (Pharmacy To Dose - Magnesium Replacement) 1 dose .XX ASDIRECTED [facility] Midazolam HCl (Versed 1 Mg/Ml) Confirm Administered Dose 2 mg .ROUTE .STK-MED ONE Stop: 09/07/16 14:11 Last Admin: 09/07/16 15:59 Dose: Not Given Midazolam HCl (Versed 1 Mg/Ml) 2 mg IVPUSH ONETIME ONE Stop: 09/07/16 14:16 Last Admin: 09/07/16 14:15 Dose: 2 mg Midazolam HCl (Versed 1 Mg/Ml) 2 mg IVPUSH ONETIME ONE Stop: 09/07/16 14:32 Last Admin: 09/07/16 14:31 Dose: 2 mg Midazolam HCl (Versed 1 Mg/Ml) 5 mg .ROUTE .STK-MED ONE Stop: 09/07/16 14:33 Ondansetron HCl (Zofran) 4 mg IVPUSH ONETIME ONE Stop: 09/07/16 13:41 Last Admin: 09/07/16 13:50 Dose: 4 mg Potassium Chloride (Pharmacy To Dose - Potassium Replacement) 1 dose .XX ASDIRECTED [facility] Potassium Chloride (Klor-Con M20) 20 meq PO Q3H [facility]I Stop: 09/10/16 16:01 Last Admin: 09/10/16 10:20 Dose: 20 meq Potassium Chloride (Potassium Chloride Solution) 20 meq PO Q3H [facility] Stop: 09/10/16 17:01 Last Admin: 09/10/16 16:42 Dose: 20 meq Potassium Chloride (Potassium Chloride Solution) 20 meq PO ONETIME ONE Stop: 09/11/16 08:26 Last Admin: 09/11/16 08:53 Dose: 20 meq Saccharomyces Boulardii (Florastor) 250 mg PO TID [facility] Last Admin: 09/07/16 22:22 Dose: Not Given Senna/Docusate Sodium (Senna Plus) 1 tab PO BID PRN PRN Reason: Constipation *Q Meaningful Use (DIS) - VTE *Q VTE Criteria *Q: - Stroke *Q Stroke Criteria *Q: - AMI *Q AMI Criteria *Q:
[2016-09-12] MEDS ORDERED: Magnesium Oxide 400 MG Tab PO ONE (08:00)
[2016-09-12 08:43] VITALS: BP 122/78
[2016-09-12] MEDS: Magnesium Oxide 400 MG Tab PO SCH (10:34)
[2016-09-12] MEDS: Multivitamins,Therapeutic Tab PO SCH (10:35)
[2016-09-12] MEDS: LORazepam 0.5 MG Tab PO SCH (10:36)
[2016-09-12] MEDS: Baclofen 10 MG Tab PO SCH (10:36)
[2016-09-12] MEDS: tiZANidine 4 MG Tab PO SCH (10:37)
[2016-09-12] MEDS: levETIRAcetam 500 MG Tab PO SCH (10:37)
[2016-09-12] MEDS: Saccharomyces Boulardii (Probiotic) 250 MG Cap PO SCH (10:37)
[2016-09-12] MEDS: Enoxaparin 40 MG/0.4 ML Syringe SUBCUT SCH (10:38)
[2016-09-12] MEDS: Famotidine 20 MG Tab PO SCH (10:38)
[2016-09-12] MEDS: FLUoxetine 10 MG Cap PO SCH (10:38)
[2016-09-12] MEDS: Cholecalciferol (Vitamin D3) 1,000 Unit Tab PO SCH (10:38)
[2016-09-12] MEDS: Nystatin Crm 30 GM Tube TOP SCH (10:39)
[2016-09-12] MEDS: Betamethasone Dipropionate/Clotrimazole 0.05-1% Crm 15 GM Tube TOP SCH (10:39)
[2016-09-12] MEDS: Potassium Chloride 10% 20 MEQ/15 ML Soln 15 ML UD Cup PO SCH (10:40)
[2016-09-12] MEDS: Metoclopramide 10 MG/2 ML SDV IVPUSH SCH (10:40)
== END 2016-09-12 13:10 | DRG 871 ==
LOC: JD.ED 12:59 → JD.ICU 16:24 → JD.MS 09-10 14:15
PROVIDERS: ADMIT Emergency Medicine; ATTEND Internal Medicine
PROC: 02HV33Z Insertion of Infusion Device into Superior Vena Cava, Percutaneous Approach (ICD-10-PCS; principal; 2016-09-07)
DX: A41.9 Sepsis, unspecified organism (principal); R65.21 Severe sepsis with septic shock; N39.0 Urinary tract infection, site not specified; R47.01 Aphasia; G35 Multiple sclerosis; R13.10 Dysphagia, unspecified; Z93.1 Gastrostomy status; R32 Unspecified urinary incontinence; K59.09 Other constipation; G89.29 Other chronic pain; M54.9 Dorsalgia, unspecified; F32.9 Major depressive disorder, single episode, unspecified; I05.0 Rheumatic mitral stenosis; M19.90 Unspecified osteoarthritis, unspecified site; M81.0 Age-related osteoporosis without current pathological fracture; G30.9 Alzheimer's disease, unspecified; F02.80 Dementia in other diseases classified elsewhere, unspecified severity, without behavioral disturbance, psychotic disturbance, mood disturbance, and anxiety; G40.909 Epilepsy, unspecified, not intractable, without status epilepticus; E11.9 Type 2 diabetes mellitus without complications; D64.9 Anemia, unspecified; G47.00 Insomnia, unspecified; Z79.899 Other long term (current) drug therapy; L89.152 Pressure ulcer of sacral region, stage 2; Z86.718 Personal history of other venous thrombosis and embolism; Z86.73 Personal history of transient ischemic attack (TIA), and cerebral infarction without residual deficits; Z66 Do not resuscitate; B96.20 Unspecified Escherichia coli [E. coli] as the cause of diseases classified elsewhere; D72.1 Eosinophilia
CPT/HCPCS: 36415; 36556; 36600; 51702; 71010; 80053; 81001; 82533; 82553; 82803; 83605; 83735; 83880; 84484; 85025; 85610; 86140; 87040 ×2; 87086; 87088; 87186; 93005; 96365; 96366; 96368; 96375; 96376; 99152; 99153 ×3; 99285; J1956; J2250 ×3; J2405; J3010; J7040; J7060; J7120 ×2; 36569; 74000; 74000-26; 80048; 82272; 85014; 85018; 87641; 96367; 97161-GP; 97530-GP; 99291; A9270-GY; C1751; J0360; J0696; J1650; J1720; J1940; J2060; J2543; J2765; J3370; J3475; J3480; J3490; J7030; J7042; J7050

== ENCOUNTER 2016-12-23 09:17 | Emergency (ER) | payer MEDICAID ==
[2016-12-23] MEDS ORDERED: Sodium Chloride 0.9% 10 ML Syringe FLUSH PRN (09:26)
[2016-12-23 09:40] VITALS: BP 122/77
--- NOTE | 2016-12-23 11:13 | EDM.PDOC ---
ED HPI GENERAL MEDICAL PROBLEM - General Chief Complaint: Gastrointestinal Problem Stated Complaint: [facility] Time Seen by Provider: 12/23/16 09:18 Source of Information: Reports: Patient, EMS, EMS Notes Reviewed, Long-Term Records, RN Notes Reviewed - History of Present Illness INITIAL COMMENTS - FREE TEXT/NARRATIVE: 56 old lady with history of fairly advanced EMS for age has been transported here from [facility] with concern of possible aspiration pneumonia. He does get her feedings through a G-tube. Her usual feeding this morning. Then did vomit a short time after that. Vomiting she was short of breath for a period of time. Nursing staff heard rales down in her lower lung soares. On arrival to ED her shortness of breath has resolved. She has not been coughing much. She has not been running a fever. On arrival to ED she denies chest or abdominal pain. She denies feeling nauseated at this time. - Related Data Allergies Allergy/AdvReac Type Severity Reaction Status Date / Time No Known Allergies Allergy Verified 07/21/15 15:34 Home Meds: Home Meds Baclofen 30 mg GTUBE TID 04/06/14 [History] FLUoxetine [PROzac] 10 mg GTUBE DAILY 04/06/14 [History] LORazepam [Ativan] 0.25 mg GTUBE QAM 04/06/14 [History] tiZANidine HCl [Zanaflex] 2 mg PEGTUBE TID 04/06/14 [History] Acetaminophen [Tylenol] 2 tab GTUBE Q4HR PRN 06/30/14 [History] Cholecalciferol (Vitamin D3) [Vitamin D3] 2,000 unit GTUBE DAILY 06/30/14 [ History] Docusate Sodium/Sennosides [Senna Plus] 2 tab GTUBE BID 06/30/14 [History] Multivitamin with Minerals [Multiple Vitamin] 1 tab GTUBE DAILY 06/30/14 [ History] Clotrimazole/Betamethasone Dip [Lotrisone Cream] 1 applic TOP BID 12/23/16 [ History] Clotrimazole/Betamethasone Dip [Lotrisone Cream] 1 applic TOP BID 12/23/16 [ History] Lactose-Reduced Food/Fiber [Jevity 1.2 Ugo Liquid] 275 ml GTUBE 5XDAY 12/23/16 [ History] Magnesium Oxide 400 mg GTUBE BID 12/23/16 [History] Potassium Chloride [Potassium Chloride Solution] 20 meq GTUBE BID 12/23/16 [ History] levETIRAcetam [Levetiracetam] 10 ml GTUBE BID 12/23/16 [History] Past Medical History HEENT History: Reports: Other (See Below) Other HEENT History: dysphagia Cardiovascular History: Reports: Other (See Below) Other Cardiovascular History: hypomagnesemia Gastrointestinal History: Reports: Chronic Constipation Other Gastrointestinal History: NPO Genitourinary History: Reports: UTI, Recurrent Other Genitourinary History: sepsis secondary to e-coli, chronic kidney disease. Musculoskeletal History: Reports: Back Pain, Chronic, Osteoarthritis, Osteoporosis, Other (See Below) Other Musculoskeletal History: MS, sacral pressure ulcer. Neurological History: Reports: Alzheimers Disease, CVA, MS, Seizure Other Neuro History: chronic embolisms/thrombosis of veins, recurrent strokes, convulsions, encephalopathy. Psychiatric History: Reports: Alzheimers Disease, Depression Other Psychiatric History: insomnia Endocrine/Metabolic History: Reports: Diabetes, Type II Other Endocrine/Metabolic History: eosinophilia, follicular disorder, disorders of magnesium metabolismm anemia, hypercalcemia, hypokalemia Hematologic History: Reports: Anemia, Other (See Below) Other Hematologic History: eosinophilia Other Dermatologic History: candidasis. - Infectious Disease History Infectious Disease History: Reports: Other (See Below) Other Infectious Disease History: unknown pt unable to answer and it is not listed on [facility] paperwork - Past Surgical History Head Surgeries/Procedures: Reports: None GI Surgical History: Reports: Other (See Below) Other GI Surgeries/Procedures: G-tube Social & Family History - Family History Family Medical History: Unobtainable - Tobacco Use Smoking Status *Q: Never Smoker Second Hand Smoke Exposure: No - Caffeine Use Caffeine Use: Reports: None - Alcohol Use Days Per Week of Alcohol Use: 0 - Recreational Drug Use Recreational Drug Use: No ED ROS GENERAL - Review of Systems Review Of Systems: See Below Constitutional: Denies: Fever, Chills, Diaphoresis HEENT: Denies: Throat Pain Respiratory: Reports: Shortness of Breath, Wheezing (gone), Cough (goneno gone) Cardiovascular: Denies: Chest Pain GI/Abdominal: Reports: Nausea, Vomiting (goneemesis 1 this morning, gone). Denies: Abdominal Pain Skin: Reports: No Symptoms Neurological: Reports: Weakness (chronic weakness associated with her MS) ED EXAM, GENERAL - Physical Exam Exam: See Below General Appearance: Alert, No Apparent Distress Eye Exam: Bilateral Eye: PERRL Throat/Mouth: Normal Inspection Head: Atraumatic Neck: Supple. No: Lymphadenopathy (L), Lymphadenopathy (R) Respiratory/Chest: No Respiratory Distress, Lungs Clear, Normal Breath Sounds, Rhonchi (I do hear a few rhonchi down at the right base). No: Rales, Wheezing Cardiovascular: Regular Rate, Rhythm GI/Abdominal: Soft, Non-Tender, Other (G-tube present upper abdomen) Extremities: Normal Inspection, Normal Range of Motion Neurological: Alert, Other Skin Exam: Warm (answers questions appropriately), Dry, Normal Color Course - Vital Signs Last Recorded V/S: Last Vital Signs Temp 97.8 F 12/23/16 09:17 Pulse 88 12/23/16 09:17 Resp 16 12/23/16 09:17 BP 122/77 12/23/16 09:17 Pulse Ox 94 L 12/23/16 09:17 - Orders/Labs/Meds Labs: Laboratory Tests 12/23/16 12/23/16 Range/Units 09:35 10:00 WBC 6.20 (3.98-10.04) K/mm3 RBC 4.47 (3.98-5.22) M/mm3 Hgb 13.1 (11.2-15.7) gm/L Hct 40.6 (34.1-44.9) % MCV 90.8 (79.4-94.8) fl MCH 29.3 (25.6-32.2) pg MCHC 32.3 (32.2-35.5) g/dl RDW Std Deviation 57.5 H (36.4-46.3) fL Plt Count 205 (182-369) K/mm3 MPV 10.3 (9.4-12.3) fl Neut % (Auto) 59.9 (34.0-71.1) % Lymph % (Auto) 30.2 (19.3-51.7) % Henry % (Auto) 8.5 (4.7-12.5) % Eos % (Auto) 1.0 (0.7-5.8) Baso % (Auto) 0.2 (0.1-1.2) % Neut # (Auto) 3.72 (1.56-6.13) K/mm3 Lymph # (Auto) 1.87 (1.18-3.74) K/mm3 Henry # (Auto) 0.53 H (0.24-0.36) K/mm3 Eos # (Auto) 0.06 (0.04-0.36) K/mm3 Baso # (Auto) 0.01 (0.01-0.08) K/mm3 Sodium 143 (136-145) mEq/L Potassium 4.2 (3.5-5.1) mEq/L Chloride 105 (98-107) mEq/L Carbon Dioxide 27 (21-32) mEq/L Anion Gap 15.2 H (5-15) BUN 21 H (7-18) mg/dL Creatinine 0.8 (0.55-1.02) mg/dL Est Cr Clr Drug Dosing 72.34 mL/min Estimated GFR (MDRD) > 60 (>60) mL/min BUN/Creatinine Ratio 26.3 H (14-18) Glucose 109 H (74-106) mg/dL Calcium 10.1 (8.5-10.1) mg/dL Total Bilirubin 0.3 (0.2-1.0) mg/dL AST 26 (15-37) U/L ALT 36 (14-59) U/L Alkaline Phosphatase 87 (46-116) U/L Total Protein 8.4 H (6.4-8.2) g/dl Albumin 3.1 L (3.4-5.0) g/dl Globulin 5.3 gm/dL Albumin/Globulin Ratio 0.6 L (1-2) Meds: Medications Discontinued Medications Generic Name Dose Route Start Last Admin Trade Name Freq PRN Reason Stop Dose Admin Sodium Chloride 10 ml 12/23/16 09:26 12/23/16 10:31 Saline Flush FLUSH 10 ml ASDIRECTED PRN Administration Keep Vein Open - Re-Assessments/Exams Free Text/Narrative Re-Assessment/Exam: 12/23/16 11:16 as noted on arrival patient was feeling much better. She denied current nausea or abdominal pain. She did not appear short of breath. She arrived on 2 L oxygen. When that was stopped her stats maintained in the 93-97 range on room air. She was not tachypnea. I did hear a few rhonchi down the right days. However chest x-ray was clear, no infiltrate and white blood count normal. We will let her go back at this time. They will need to monitor her for any signs or symptoms of developing pneumonia. Departure - Departure Time of Disposition: 11:12 Disposition: Home, Self-Care 01 Clinical Impression: Vomiting Qualifiers: Vomiting type: unspecified Vomiting Intractability: non-intractable Nausea presence: with nausea Qualified Code(s): R11.2 - Nausea with vomiting, unspecified - Discharge Information Instructions: Nausea and Vomiting, Adult, [id number] Referrals: Ron Khan MD [Primary Care Provider] - Forms: ED Department Discharge Additional Instructions: continue present care, no evidence for pneumonia at this time, her chest x-ray was clear, white blood count normal. Continue to monitor for any signs of pneumonia and if she does develop persistent fever, productive cough she may need to come back for reevaluation.
--- NOTE | 2016-12-24 18:06 | CR ---
Chest: Portable view of the chest was obtained. Comparison: Previous chest x-ray of 09/11/16. Heart size and mediastinum are normal. Lungs are clear. Bony structures are osteopenic. Impression: 1. Nothing acute is identified on portable chest x-ray. Diagnostic code #1
== END 2016-12-23 11:55 | disposition home or self-care (01) ==
LOC: SUPCPDRO 09:17 → JD.ED 09:17
DX: R11.2 Nausea with vomiting, unspecified (principal); E11.9 Type 2 diabetes mellitus without complications; Z79.899 Other long term (current) drug therapy; Z87.440 Personal history of urinary (tract) infections; Z86.73 Personal history of transient ischemic attack (TIA), and cerebral infarction without residual deficits
CPT/HCPCS: 36415; 71010; 80053; 85025; 99285; J7050; 99283

== ENCOUNTER 2017-04-09 17:47 | Emergency (ER) | payer MEDICAID ==
[2017-04-09 18:00] VITALS: BP 152/77
[2017-04-09] MEDS ORDERED: Sodium Chloride 0.9% 10 ML Syringe FLUSH PRN (18:01)
--- NOTE | 2017-04-09 18:17 | EDM.PDOC ---
ED HPI GENERAL MEDICAL PROBLEM - General Chief Complaint: Fever Stated Complaint: [facility] Time Seen by Provider: 04/09/17 18:05 Source of Information: Reports: [facility] Records History Limitations: Reports: Other (dementia) - History of Present Illness INITIAL COMMENTS - FREE TEXT/NARRATIVE: Patient is a 56-year-old female with a history of dementia, MS, and multiple strokes leaving her disabled with contractures. Per [facility] nursing staff patient developed a fever with changes to her mentation. Patient is more lethargic, flushed in color, with foul odor to urine. Patient receives tube feedings via GI tube with concerns for aspiration. Patient has been congested with a nonproductive cough. She does have a history of pyelonephritis and multiple recurrences of UTI. She did receive Tylenol prior to admission to the ED. Temperature upon arrival is 98.5F. Temperature at the correction was 102 F. She is a DNR patient. Treatments PUMP SERVICE SUPERVISOR: Reports: Acetaminophen, IV/IO, Oxygen, See EMS Report, Other ( see below) Other Treatments PUMP SERVICE SUPERVISOR: IVF - Related Data Allergies Allergy/AdvReac Type Severity Reaction Status Date / Time No Known Allergies Allergy Verified 04/09/17 18:00 Home Meds: Home Meds Baclofen 30 mg GTUBE TID 04/06/14 [History] FLUoxetine [PROzac] 10 mg GTUBE DAILY 04/06/14 [History] LORazepam [Ativan] 0.25 mg GTUBE QAM 04/06/14 [History] tiZANidine HCl [Zanaflex] 2 mg PEGTUBE TID 04/06/14 [History] Acetaminophen [Tylenol] 2 tab GTUBE Q4HR PRN 06/30/14 [History] Cholecalciferol (Vitamin D3) [Vitamin D3] 2,000 unit GTUBE DAILY 06/30/14 [ History] Docusate Sodium/Sennosides [Senna Plus] 2 tab GTUBE BID 06/30/14 [History] Multivitamin with Minerals [Multiple Vitamin] 1 tab GTUBE DAILY 06/30/14 [ History] Clotrimazole/Betamethasone Dip [Lotrisone Cream] 1 applic TOP BID 12/23/16 [ History] Lactose-Reduced Food/Fiber [Jevity 1.2 Ugo Liquid] 275 ml GTUBE 5XDAY 12/23/16 [ History] Magnesium Oxide 400 mg GTUBE BID 12/23/16 [History] Potassium Chloride [Potassium Chloride Solution] 20 meq GTUBE BID 12/23/16 [ History] levETIRAcetam [Levetiracetam] 10 ml GTUBE BID 12/23/16 [History] Barrier Cream 1 dose TOP BID 04/09/17 [History] Lactulose 10 gm PO ASDIRECTED PRN 04/09/17 [History] Ondansetron HCl [Zofran] 4 mg PEGTUBE Q6H PRN 04/09/17 [History] Water 70 ml PEGTUBE ASDIRECTED 04/09/17 [History] cefTRIAXone [Rocephin] 1 gm IM Q24H #6 adv 04/09/17 [Rx] Past Medical History HEENT History: Reports: Other (See Below) Other HEENT History: dysphagia Cardiovascular History: Reports: Other (See Below) Other Cardiovascular History: hypomagnesemia, hypokalemia Respiratory History: Reports: Pneumonia, Recurrent Gastrointestinal History: Reports: Chronic Constipation Other Gastrointestinal History: NPO Genitourinary History: Reports: Neurogenic Bladder, Renal Disease, Retention, Urinary, UTI, Recurrent Other Genitourinary History: sepsis secondary to e-coli, chronic kidney disease. Musculoskeletal History: Reports: Back Pain, Chronic, Osteoarthritis, Osteoporosis, Other (See Below) Other Musculoskeletal History: MS Neurological History: Reports: Alzheimers Disease, CVA, MS, Seizure Other Neuro History: chronic embolisms/thrombosis of veins, recurrent strokes, convulsions, encephalopathy. Psychiatric History: Reports: Alzheimers Disease, Dementia, Depression Other Psychiatric History: insomnia, behavioral disturbances Endocrine/Metabolic History: Reports: Diabetes, Type II Other Endocrine/Metabolic History: eosinophilia, follicular disorder, disorders of magnesium metabolismm anemia, hypercalcemia, hypokalemia Hematologic History: Reports: Anemia, Other (See Below) Other Hematologic History: eosinophilia Other Dermatologic History: candidasis, follicular disorder - Infectious Disease History Infectious Disease History: Reports: Other (See Below) Other Infectious Disease History: unknown pt unable to answer and it is not listed on correction paperwork - Past Surgical History Head Surgeries/Procedures: Reports: None GI Surgical History: Reports: Other (See Below) Other GI Surgeries/Procedures: G-tube Social & Family History - Family History Family Medical History: Unobtainable - Tobacco Use Smoking Status *Q: Never Smoker Second Hand Smoke Exposure: No - Caffeine Use Caffeine Use: Reports: None - Alcohol Use Days Per Week of Alcohol Use: 0 - Recreational Drug Use Recreational Drug Use: No ED ROS GENERAL - Review of Systems Review Of Systems: Unable To Obtain ED EXAM, GENERAL - Physical Exam Exam: See Below Exam Limited By: Other (dementia) General Appearance: Alert, WD/WN, Lethargic Eye Exam: Bilateral Eye: PERRL Ears: Hearing Grossly Normal Nose: Normal Inspection Throat/Mouth: Normal Voice, No Airway Compromise, Other (Oral mucosa is dry with erythema noted to the posterior pharynx. Minimal exudates noted.) Head: Atraumatic, Normocephalic Neck: Normal Inspection, Supple, Non-Tender, Full Range of Motion. No: Lymphadenopathy (L), Lymphadenopathy (R) Respiratory/Chest: No Respiratory Distress, Lungs Clear, Normal Breath Sounds, No Accessory Muscle Use, Chest Non-Tender Cardiovascular: Normal Peripheral Pulses, No Murmur (Obvious), Tachycardia Peripheral Pulses: 4+: Radial (L), Radial (R) GI/Abdominal: Normal Bowel Sounds, Soft, Non-Tender, No Organomegaly, No Distention Extremities: Normal Inspection, Non-Tender, No Pedal Edema, Normal Capillary Refill Neurological: Alert, CN II-XII Intact, Confused Skin Exam: Warm, Dry, Other (Flushed appearance) Course - Vital Signs Last Recorded V/S: Last Vital Signs Temp 100.4 F 04/09/17 18:52 Pulse 102 H 04/09/17 17:47 Resp 18 04/09/17 17:47 BP 152/77 H 04/09/17 17:47 Pulse Ox 97 04/09/17 17:47 - Orders/Labs/Meds Orders: Active Orders 24 hr Category Date Time Status EKG Documentation Completion [RC] STAT Care 04/09/17 18:02 Active Peripheral IV Care [RC] . DIRECTED Care 04/09/17 18:02 Active Chest 1V Frontal [CR] Stat Exams 04/09/17 18:02 Taken CULTURE BLOOD [BC] Stat Lab 04/09/17 18:20 Received CULTURE BLOOD [BC] Stat Lab 04/09/17 18:35 Received CULTURE URINE [RM] Stat Lab 04/09/17 18:45 Received Blood Culture x2 Reflex Set [OM.PC] Stat Oth 04/09/17 18:02 Ordered Peripheral IV Insertion Adult [OM.PC] Stat Oth 04/09/17 18:02 Ordered Labs: Laboratory Tests 04/09/17 04/09/17 04/09/17 Range/Units 18:20 18:20 18:20 WBC 7.70 (3.98-10.04) K/mm3 RBC 4.69 (3.98-5.22) M/mm3 Hgb 13.8 (11.2-15.7) gm/L Hct 43.1 (34.1-44.9) % MCV 91.9 (79.4-94.8) fl MCH 29.4 (25.6-32.2) pg MCHC 32.0 L (32.2-35.5) g/dl RDW Std Deviation 53.9 H (36.4-46.3) fL Plt Count 309 (182-369) K/mm3 MPV 10.3 (9.4-12.3) fl Neut % (Auto) 61.6 (34.0-71.1) % Lymph % (Auto) 31.8 (19.3-51.7) % [place] % (Auto) 6.4 (4.7-12.5) % Eos % (Auto) 0 L (0.7-5.8) Baso % (Auto) 0.1 (0.1-1.2) % Neut # (Auto) 4.74 (1.56-6.13) K/mm3 Lymph # (Auto) 2.45 (1.18-3.74) K/mm3 [place] # (Auto) 0.49 H (0.24-0.36) K/mm3 Eos # (Auto) 0.00 L (0.04-0.36) K/mm3 Baso # (Auto) 0.01 (0.01-0.08) K/mm3 PT 10.2 (8.0-13.0) SECONDS INR 0.94 APTT 26 (22-36) SECONDS Sodium 140 (136-145) mEq/L Potassium 4.1 (3.5-5.1) mEq/L Chloride 103 (98-107) mEq/L Carbon Dioxide 23 (21-32) mEq/L Anion Gap 18.1 H (5-15) BUN 19 H (7-18) mg/dL Creatinine 0.8 (0.55-1.02) mg/dL Est Cr Clr Drug Dosing 63.58 mL/min Estimated GFR (MDRD) > 60 (>60) mL/min BUN/Creatinine Ratio 23.8 H (14-18) Glucose 115 H (74-106) mg/dL Lactic Acid (0.4-2.0) mmol/L Calcium 9.4 (8.5-10.1) mg/dL Total Bilirubin 0.2 (0.2-1.0) mg/dL AST 22 (15-37) U/L ALT 35 (14-59) U/L Alkaline Phosphatase 79 (46-116) U/L C-Reactive Protein < 0.2 (<1.0) mg/dL Total Protein 8.3 H (6.4-8.2) g/dl Albumin 3.0 L (3.4-5.0) g/dl Globulin 5.3 gm/dL Albumin/Globulin Ratio 0.6 L (1-2) Urine Color (Yellow) Urine Appearance (Clear) Urine pH (5.0-8.0) Ur Specific [place] (1.005-1.030) Urine Protein (Negative) Urine Glucose (UA) (Negative) Urine Ketones (Negative) Urine Occult Blood (Negative) Urine Nitrite (Negative) Urine Bilirubin (Negative) Urine Urobilinogen (0.2-1.0) Ur Leukocyte Esterase (Negative) Urine RBC (0-5) /hpf Urine WBC (0-5) /hpf Ur Epithelial Cells (0-5) /hpf Urine Bacteria (FEW) /hpf Urine Mucus (FEW) /hpf 04/09/17 04/09/17 Range/Units 18:20 18:45 WBC (3.98-10.04) K/mm3 RBC (3.98-5.22) M/mm3 Hgb (11.2-15.7) gm/L Hct (34.1-44.9) % MCV (79.4-94.8) fl MCH (25.6-32.2) pg MCHC (32.2-35.5) g/dl RDW Std Deviation (36.4-46.3) fL Plt Count (182-369) K/mm3 MPV (9.4-12.3) fl Neut % (Auto) (34.0-71.1) % Lymph % (Auto) (19.3-51.7) % [place] % (Auto) (4.7-12.5) % Eos % (Auto) (0.7-5.8) Baso % (Auto) (0.1-1.2) % Neut # (Auto) (1.56-6.13) K/mm3 Lymph # (Auto) (1.18-3.74) K/mm3 [place] # (Auto) (0.24-0.36) K/mm3 Eos # (Auto) (0.04-0.36) K/mm3 Baso # (Auto) (0.01-0.08) K/mm3 PT (8.0-13.0) SECONDS INR APTT (22-36) SECONDS Sodium (136-145) mEq/L Potassium (3.5-5.1) mEq/L Chloride (98-107) mEq/L Carbon Dioxide (21-32) mEq/L Anion Gap (5-15) BUN (7-18) mg/dL Creatinine (0.55-1.02) mg/dL Est Cr Clr Drug Dosing mL/min Estimated GFR (MDRD) (>60) mL/min BUN/Creatinine Ratio (14-18) Glucose (74-106) mg/dL Lactic Acid 3.4 H (0.4-2.0) mmol/L Calcium (8.5-10.1) mg/dL Total Bilirubin (0.2-1.0) mg/dL AST (15-37) U/L ALT (14-59) U/L Alkaline Phosphatase (46-116) U/L C-Reactive Protein (<1.0) mg/dL Total Protein (6.4-8.2) g/dl Albumin (3.4-5.0) g/dl Globulin gm/dL Albumin/Globulin Ratio (1-2) Urine Color Yellow (Yellow) Urine Appearance Cloudy H (Clear) Urine pH 7.5 (5.0-8.0) Ur Specific [place] 1.020 (1.005-1.030) Urine Protein 1+ H (Negative) Urine Glucose (UA) Negative (Negative) Urine Ketones Negative (Negative) Urine Occult Blood 2+ H (Negative) Urine Nitrite Negative (Negative) Urine Bilirubin Negative (Negative) Urine Urobilinogen 0.2 (0.2-1.0) Ur Leukocyte Esterase 2+ H (Negative) Urine RBC 10-20 H (0-5) /hpf Urine WBC 20-30 H (0-5) /hpf Ur Epithelial Cells 5-10 H (0-5) /hpf Urine Bacteria Many H (FEW) /hpf Urine Mucus Not seen (FEW) /hpf Meds: Medications Discontinued Medications Generic Name Dose Route Start Last Admin Trade Name Freq PRN Reason Stop Dose Admin Sodium Chloride 1,000 mls @ 999 mls/hr 04/09/17 18:22 04/09/17 18:50 Normal Saline IV 04/09/17 19:22 999 mls/hr ONETIME ONE Administration Ceftriaxone Sodium 2 gm/ 100 mls @ 200 mls/hr 04/09/17 19:24 04/09/17 19:37 Sodium Chloride IV 04/09/17 19:53 200 mls/hr ONETIME ONE Administration Penicillin G Benzathine 1.2 millunits 04/09/17 19:21 Bicillin L-A IM 04/09/17 19:22 ONETIME ONE Sodium Chloride 10 ml 04/09/17 18:01 04/09/17 18:58 Saline Flush FLUSH 10 ml ASDIRECTED PRN Administration Keep Vein Open - Re-Assessments/Exams Free Text/Narrative Re-Assessment/Exam: Patient has a history dementia, MS, and multiple strokes leaving her disabled with contracture. She is a poor historian. She was administered Tylenol prior to arrival. Temperature currently is 98.5. With review of previous history no documentation for coronary disease or congestive heart failure. No recent echocardiogram completed. Patient meets SIRS criteria: elevated heart rate and fever. Ordered NS 999mls/hr. Initial labs and studies include: CBC, CRP, chem 14, blood cultures 2, coag studies, lactic acid, influenza and strep screen, UA, chest x-ray one view, and EKG. 04/09/17 18:[address] Burnham revealed no acute findings in comparison to CXR obtained 11/2016. EKG sinus tachycardia at a rate of 106 with left axis deviation. QTc 444. CO interval 133. No acute ST changes noted. Labs reviewed: CBC was essentially normal. Sodium 140, potassium 4.1, AG 18.1, BUN 19, creatinine 0.8, glucose 1:15, lactic acid elevated at 3.4. UA cloudy protein one plus, occult blood 2+, leukocyte esterase 2+, urine rbc's 10-20, urine wbc's 20-30, epithelial cells 5-10, bacteria many. Strep screen was positive. Influenza screen was negative. Ordered Rocephin 2 g IV. Previous urine culture 08/2016 grew out Escherichia coli susceptible to Rocephin. Urine culture has been ordered. Jayce Bond RN on staff this evening. She works at [facility] [employer] and states patient's mentation is normal at this point. Upon reexamination patient is more alert from initial admission. They are able to administer Rocephin intramuscularly at the correction. Will get a hold of family and discuss discharging patient back to correction. Vital signs. Blood pressure 104 over systolic. Heart rate 194. SPO2 98%. Patient continues to be afebrile. 04/09/17 19:47 Spoke to patients mother and provided update. She is okay with sending patient back to the [facility] after IVF's and Antibiotic infusion. 04/09/17 20:25 IVF's and antibiotic has completed. Vital signs are stable. Patient remains afebrile. Will discharge home with instructions as documented. Departure - Departure Time of Disposition: 20:27 Disposition: DC/Tfer to [facility] Condition: Good Clinical Impression: Strep sore throat UTI (urinary tract infection) Qualifiers: Urinary tract infection type: site unspecified Hematuria presence: with hematuria Qualified Code(s): N39.0 - Urinary tract infection, site not specified - Discharge Information Prescriptions: cefTRIAXone [Rocephin] 1 gm IM Q24H #6 adv Instructions: Fever, Adult, [id number] Referrals: Ron Khan MD [Primary Care Provider] - Forms: ED Department Discharge Additional Instructions: Patient was positive for strep throat. UA results concerning for UTI. Urine culture ordered. She was administered rocephin 2 grams IV while in the E.D. She will receive rocephin 1 gram IM with lidocaine for the next 6 days. Followup with PCP the end of this week or first part of next week as needed. Return to the E.D. for any new or worsening symptoms. Continue to administer tylenol 650 mg every 4 to 6 hrs for fever. Ensure adequate hydration. Continue with all home medications as prescribed. - My Orders Last 24 Hours: My Active Orders 04/09/17 18:02 EKG Documentation Completion [RC] STAT Peripheral IV Care [RC] . DIRECTED Chest 1V Frontal [CR] Stat Blood Culture x2 Reflex Set [OM.PC] Stat Peripheral IV Insertion Adult [OM.PC] Stat 04/09/17 18:20 CULTURE BLOOD [BC] Stat 04/09/17 18:35 CULTURE BLOOD [BC] Stat 04/09/17 18:45 CULTURE URINE [RM] Stat - Assessment/Plan Last 24 Hours: My Active Orders 04/09/17 18:02 EKG Documentation Completion [RC] STAT Peripheral IV Care [RC] . DIRECTED Chest 1V Frontal [CR] Stat Blood Culture x2 Reflex Set [OM.PC] Stat Peripheral IV Insertion Adult [OM.PC] Stat 04/09/17 18:20 CULTURE BLOOD [BC] Stat 04/09/17 18:35 CULTURE BLOOD [BC] Stat 04/09/17 18:45 CULTURE URINE [RM] Stat
[2017-04-09] MEDS ORDERED: Sodium Chloride 0.9% 1,000 ML IV ONE (18:22)
[2017-04-09] MEDS ORDERED: Penicillin G Benzathine 1,200,000 Units/2 ML Syringe IM ONE (19:21)
[2017-04-09] MEDS ORDERED: cefTRIAXone 2 GM in Sodium Chloride 0.9% 100 ML IV ONE (19:24)
--- NOTE | 2017-04-10 06:54 | CR ---
Chest: Portable view of the chest was obtained. Comparison: Prior chest x-ray of 12/23/16. Heart size and mediastinum are normal. Lungs are clear. Bony structures are grossly intact. Impression: 1. Nothing acute is identified on portable chest x-ray. Diagnostic code #1
== END 2017-04-09 21:30 ==
LOC: JD.ED 17:47
DX: N39.0 Urinary tract infection, site not specified (principal); J02.0 Streptococcal pharyngitis; E11.22 Type 2 diabetes mellitus with diabetic chronic kidney disease; N18.9 Chronic kidney disease, unspecified; G30.9 Alzheimer's disease, unspecified; F02.80 Dementia in other diseases classified elsewhere, unspecified severity, without behavioral disturbance, psychotic disturbance, mood disturbance, and anxiety; F32.9 Major depressive disorder, single episode, unspecified; Z79.899 Other long term (current) drug therapy
CPT/HCPCS: 36415; 71045; 80053; 81001; 83605; 85025; 85610; 85730; 86140; 87040; 87086; 87430; 87804; 93005; 96361; 96365; 99285; J0696; J7030; J7040; J7050; P9612; 87088; 87181; 87184; 87186; 99284

== ENCOUNTER 2017-09-20 15:59 | Emergency (ER) | payer MEDICAID ==
[2017-09-20 16:34] VITALS: BP 97/59
[2017-09-20] MEDS ORDERED: Lidocaine 2% Jelly 10 ML Urojet MUCMEM ONE (17:00)
--- NOTE | 2017-09-20 17:01 | EDM.PDOC ---
ED HPI GENERAL MEDICAL PROBLEM - General Chief Complaint: Gastrointestinal Problem Stated Complaint: TUBE PULLED OUT NEEDS TO BE REPLACED Time Seen by Provider: 09/20/17 17:01 Source of Information: Reports: Patient History Limitations: Reports: No Limitations - History of Present Illness INITIAL COMMENTS - FREE TEXT/NARRATIVE: 56-year-old female from a local [facility]pc presents to the ED due to feeding tube dislodgment. It's unclear what happened but apparently the patient snagged tube and it came out. Is unclear whether the blood was intact or not. Looking at the records it appears that she had an 18-gauge Tristian feeding tube in place. Patient has multiple sclerosis. She therefore cannot swallow any more and is fed primarily with her medications and nutrition through the feeding tube. We will not have a feeding tube like it in our department. Therefore the plan will be to replace the tube with a [place] catheter. Onset: Today Onset Date: 09/20/17 Onset Time: 15:45 Duration: Minutes: Location: Reports: Abdomen (Feeding tube dislodgment.) Quality: Reports: Other (In no pain or discomfort) Improves with: Reports: None Worsens with: Reports: None Context: Reports: Other (Feeding tube dislodgment). Denies: Activity, Exercise , Lifting, Sick Contact, Trauma Associated Symptoms: Reports: No Other Symptoms Treatments [employer] THRESHING: Reports: Other (see below) (None.) - Related Data Allergies Allergy/AdvReac Type Severity Reaction Status Date / Time No Known Allergies Allergy Verified 09/20/17 16:35 Home Meds: Home Meds Baclofen 30 mg GTUBE TID 04/06/14 [History] FLUoxetine [PROzac] 10 mg GTUBE DAILY 04/06/14 [History] LORazepam [Ativan] 0.25 mg GTUBE QAM 04/06/14 [History] tiZANidine HCl [Zanaflex] 2 mg PEGTUBE TID 04/06/14 [History] Acetaminophen [Tylenol] 2 tab GTUBE Q4HR PRN 06/30/14 [History] Cholecalciferol (Vitamin D3) [Vitamin D3] 2,000 unit GTUBE DAILY 06/30/14 [ History] Docusate Sodium/Sennosides [Senna Plus] 2 tab GTUBE BID 06/30/14 [History] Multivitamin with Minerals [Multiple Vitamin] 1 tab GTUBE DAILY 06/30/14 [ History] Lactose-Reduced Food/Fiber [Jevity 1.2 Ugo Liquid] 225 ml GTUBE 5XDAY 12/23/16 [ History] Magnesium Oxide 400 mg GTUBE BID 12/23/16 [History] Potassium Chloride [Potassium Chloride Solution] 20 meq GTUBE BID 12/23/16 [ History] levETIRAcetam [Levetiracetam] 10 ml GTUBE BID 12/23/16 [History] Barrier Cream 1 dose TOP BID 04/09/17 [History] Lactulose 10 gm PO ASDIRECTED PRN 04/09/17 [History] Ondansetron HCl [Zofran] 8 mg PEGTUBE Q6H PRN 04/09/17 [History] Water 70 ml PEGTUBE ASDIRECTED 04/09/17 [History] Fructooligosaccharides/Polydex [Hyfiber with Fos Liquid] 12 gm PO ASDIRECTED [History] Past Medical History HEENT History: Reports: Other (See Below) Other HEENT History: dysphagia Cardiovascular History: Reports: Other (See Below) Other Cardiovascular History: hypomagnesemia, hypokalemia Respiratory History: Reports: Pneumonia, Recurrent Gastrointestinal History: Reports: Chronic Constipation Other Gastrointestinal History: NPO Genitourinary History: Reports: Neurogenic Bladder, Renal Disease, Retention, Urinary, UTI, Recurrent Other Genitourinary History: sepsis secondary to e-coli, chronic kidney disease. Musculoskeletal History: Reports: Back Pain, Chronic, Osteoarthritis, Osteoporosis, Other (See Below) Other Musculoskeletal History: MS Neurological History: Reports: Alzheimers Disease, CVA, MS, Seizure Other Neuro History: chronic embolisms/thrombosis of veins, recurrent strokes, convulsions, encephalopathy. Psychiatric History: Reports: Alzheimers Disease, Dementia, Depression Other Psychiatric History: insomnia, behavioral disturbances Endocrine/Metabolic History: Reports: Diabetes, Type II Other Endocrine/Metabolic History: eosinophilia, follicular disorder, disorders of magnesium metabolismm anemia, hypercalcemia, hypokalemia Hematologic History: Reports: Anemia, Other (See Below) Other Hematologic History: eosinophilia Other Dermatologic History: candidasis, follicular disorder - Infectious Disease History Infectious Disease History: Reports: Other (See Below) Other Infectious Disease History: unknown pt unable to answer and it is not listed on fpc paperwork - Past Surgical History Head Surgeries/Procedures: Reports: None GI Surgical History: Reports: Other (See Below) Other GI Surgeries/Procedures: G-tube Social & Family History - Family History Family Medical History: Unobtainable - Tobacco Use Smoking Status *Q: Never Smoker - Caffeine Use Caffeine Use: Reports: None - Recreational Drug Use Recreational Drug Use: No - Living Situation & Occupation Living situation: Reports: Extended Care Facility Occupation: Disabled ED ROS GENERAL - Review of Systems Review Of Systems: See Below Constitutional: Denies: Fever, Chills, Malaise, Weakness, Fatigue, Weight Loss HEENT: Reports: No Symptoms Respiratory: Reports: No Symptoms Cardiovascular: Reports: No Symptoms Endocrine: Reports: No Symptoms GI/Abdominal: Reports: Other (Patient has an ostomy that is well-healed in the midline of her upper abdomen. No active bleeding from the wound.) ED EXAM, GI/ABD - Physical Exam Exam: See Below Exam Limited By: No Limitations General Appearance: Alert, WD/WN, No Apparent Distress, Other (Patient has quite significant spasticity of her lower extremities and titubation to tremor of her head and neck from multiple sclerosis.) Eyes: Bilateral: Normal Appearance GI/Abdominal Exam: Other (Patient has a well-healed ostomy in her midline of her upper abdomen almost in the epigastrium. Was no active bleeding from the wound.) Course - Vital Signs Last Recorded V/S: Last Vital Signs Temp 36.7 C 09/20/17 16:29 Pulse 78 09/20/17 16:29 Resp 20 09/20/17 16:29 BP 97/59 L 09/20/17 16:29 Pulse Ox 100 09/20/17 16:29 - Orders/Labs/Meds Orders: Active Orders 24 hr Category Date Time Status Communication Order [RC] STAT Care 09/20/17 17:21 Active Meds: Medications Discontinued Medications Generic Name Dose Route Start Last Admin Trade Name Freq PRN Reason Stop Dose Admin Lidocaine HCl 10 ml 09/20/17 17:00 09/20/17 17:09 Xylocaine 2% Jelly MUCMEM 09/20/17 17:01 10 ml ONETIME ONE Administration - Radiology Interpretation Free Text/Narrative:: 56-year-old female with multiple sclerosis and his feeding tube dependent presents the ED after her feeding tube was dislodged from her upper abdomen. This unclear how the tube was dislodged. She has an 18-gauge Trist[place] feeding tube by history. We do not have such a tube in the department. Plan I will replace the feeding tube with a [place] catheter. Plan will be to loop up the ostomy with lidocaine gel to help facilitate placement of the tube due to her spasticity. - Re-Assessments/Exams Free Text/Narrative Re-Assessment/Exam: 09/20/17 17:20: 16-gauge [place] catheter was used to facilitate feeding. It was placed with mild degree of difficulty meeting obstruction and it took firm pressure to get the tube to pop back into place. I was able to irrigate the tube easily with 60 mils of tap water. Balloon was inflated. Patient will be returned to the fpc where she can start feedings and medications as per her usual. Follow-up with surgeon who placed the tube is indicated and a when they have a suitable may keep tube to replace the [place] catheter. Departure - Departure Time of Disposition: 17:20 Disposition: DC/Tfer to Skilled Nursing Care 63 Condition: Fair Clinical Impression: Gastrostomy malfunction - Discharge Information Instructions: Gastrostomy Tube Replacement Referrals: Ron Khan MD [Primary Care Provider] - Forms: ED Department Discharge Additional Instructions: Evaluation the emergent today in regards to dislodgment of normal gastrostomy feeding tube. No feeding tube percent with the patient therefore we would be guessing as to what type of tube was in place prior to its loss. Therefore a 16- gauge [place] catheter was placed through the ostomy into the stomach. It localized easily. You may start to use it for her normal medications and feeding as per usual. Once you follow-up with her normal care provider or surgeon and they have the appropriate tube the [place] can be replaced at that time. - My Orders Last 24 Hours: My Active Orders 09/20/17 17:21 Communication Order [RC] STAT - Assessment/Plan Last 24 Hours: My Active Orders 09/20/17 17:21 Communication Order [RC] STAT
== END 2017-09-20 17:52 ==
LOC: JD.ED 15:59
DX: K94.23 Gastrostomy malfunction (principal); D64.9 Anemia, unspecified; N18.9 Chronic kidney disease, unspecified; E11.22 Type 2 diabetes mellitus with diabetic chronic kidney disease; G30.9 Alzheimer's disease, unspecified; F02.80 Dementia in other diseases classified elsewhere, unspecified severity, without behavioral disturbance, psychotic disturbance, mood disturbance, and anxiety; G35 Multiple sclerosis; Z79.899 Other long term (current) drug therapy; Z87.01 Personal history of pneumonia (recurrent); Z86.73 Personal history of transient ischemic attack (TIA), and cerebral infarction without residual deficits
CPT/HCPCS: 43760; 99284-25

== ENCOUNTER 2018-05-16 06:25 | Inpatient (IN) | payer MEDICAID ==
[2018-05-16] MEDS ORDERED: Piperacillin/Tazobactam 4.5 GM in Sodium Chloride 0.9% 100 ML IV STA (06:35)
[2018-05-16] MEDS ORDERED: Sodium Chloride 0.9% 1,000 ML IV ONE (06:35)
--- NOTE | 2018-05-16 06:38 | EDM.PDOC ---
<Luis Figueroa - Last Filed: 05/16/18 09:29> ED HPI GENERAL MEDICAL PROBLEM - General Chief Complaint: General Stated Complaint: [facility] Time Seen by Provider: 05/16/18 06:25 - Related Data Allergies Allergy/AdvReac Type Severity Reaction Status Date / Time No Known Allergies Allergy Verified 03/05/18 14:24 Home Meds: Home Meds tiZANidine HCl [Zanaflex] 2 mg GTUBE TID 04/06/14 [History] levETIRAcetam [Levetiracetam] 10 ml GTUBE BID 12/23/16 [History] Acetaminophen 650 mg GTUBE Q4H PRN 03/05/18 [History] LORazepam [Ativan] 0.25 mg GTUBE DAILY 03/05/18 [History] Acetaminophen/oxyCODONE [Percocet 325-5 MG] 1 tab PO Q4H PRN #45 tablet [Rx] Atropine 1% [Atropine 1% Ophth Soln] 2 drop PO Q4HR PRN 05/16/18 [History] Cholecalciferol (Vitamin D3) [Vitamin D3] 2,000 unit GTUBE DAILY 05/16/18 [ History] FA/Lycopene/Lut/MV,Ca,Iron,Min [Centrum] 1 tab GTUBE BEDTIME 05/16/18 [History] FLUoxetine [PROzac] 10 mg GTUBE DAILY 05/16/18 [History] Lactose-Reduced Food/Fiber [Jevity 1.2 Ugo Liquid] 260 ml GTUBE 5XDAY 05/16/18 [ History] Lactulose 15 ml GTUBE DAILY PRN 05/16/18 [History] Magnesium Oxide [Magnesium] 400 mg GTUBE BID 05/16/18 [History] Morphine [Morphine 10 MG/0.5 ML Oral Syringe] 2 mg GTUBE Q2HR PRN 05/16/18 [ History] Nystatin 15 gm TP BID 05/16/18 [History] Ondansetron [Zofran] 8 mg GTUBE Q6H PRN 05/16/18 [History] Potassium Chloride [Potassium Chloride Solution] 15 ml PO BID 05/16/18 [History] Sennosides/Docusate Sodium [Senna Plus Tablet] 2 each GTUBE BID 05/16/18 [ History] Sulfamethoxazole/Trimethoprim [Sulfatrim 800-160 mg/20 ml Jayshree] 20 ml PO BID [History] Water 100 ml GTUBE TID 05/16/18 [History] Course - Vital Signs Last Recorded V/S: Last Vital Signs Temp 36.2 C 05/17/18 12:00 Pulse 99 05/17/18 14:00 Resp 16 05/17/18 12:00 BP 105/50 L 05/17/18 14:00 Pulse Ox 93 L 05/17/18 13:44 - Orders/Labs/Meds Orders: Medication Orders Acetaminophen (Tylenol) 650 mg GTUBE Q4H PRN PRN Reason: Pain/Fever Last Admin: 05/17/18 00:46 Dose: 650 mg Atropine Sulfate (Atropine 1% Oph Sol) 0 ml SL Q4H PRN PRN Reason: extra secretions Cholecalciferol (Vitamin D3) 2,000 units GTUBE DAILY [facility] Last Admin: 05/17/18 08:30 Dose: 2,000 units Enoxaparin Sodium (Lovenox) 40 mg SUBCUT DAILY [facility] Last Admin: 05/17/18 08:33 Dose: 40 mg Famotidine (Pepcid) 20 mg PO BID [facility] Last Admin: 05/17/18 08:30 Dose: 20 mg Fluoxetine HCl (Prozac) 10 mg GTUBE DAILY [facility] Last Admin: 05/17/18 08:32 Dose: 10 mg Hydralazine HCl (Apresoline) 20 mg IVPUSH Q4H PRN PRN Reason: Hypertension Hydrocortisone Sodium Succinate (Solu-Cortef) 100 mg IVPUSH Q6H [facility] Last Admin: 05/17/18 12:08 Dose: 100 mg Admin: 05/17/18 05:41 Dose: 100 mg Sodium Chloride (Normal Saline) 1,000 mls @ 125 mls/hr IV ASDIRECTED [facility] Last Admin: 05/17/18 12:08 Dose: 125 mls/hr Infusion: 05/17/18 11:58 Dose: 125 mls/hr Admin: 05/17/18 03:58 Dose: 125 mls/hr Infusion: 05/17/18 03:58 Dose: 125 mls/hr Admin: 05/16/18 20:44 Dose: 125 mls/hr Levofloxacin/Dextrose 500 mg/ (Premix) 100 mls @ 100 mls/hr IV Q24H [facility] Last Admin: 05/16/18 20:48 Dose: 100 mls/hr Piperacillin Sod/Tazobactam (Sod 4.5 gm/ Sodium Chloride) 100 mls @ 25 mls/hr IV Q8H [facility] Last Admin: 05/17/18 12:08 Dose: 25 mls/hr Infusion: 05/17/18 08:23 Dose: 25 mls/hr Admin: 05/17/18 04:23 Dose: 25 mls/hr Infusion: 05/17/18 00:43 Dose: 25 mls/hr Admin: 05/16/18 20:43 Dose: 25 mls/hr Vancomycin HCl 1 gm/ Sodium (Chloride) 250 mls @ 250 mls/hr IV Q12H [facility] Last Admin: 05/17/18 13:43 Dose: 250 mls/hr Infusion: 05/17/18 01:36 Dose: 250 mls/hr Admin: 05/17/18 00:36 Dose: 250 mls/hr Norepinephrine Bitartrate 4 mg (/ Dextrose/Water) 250 mls @ 7.5 mls/hr IV TITRATE [facility]; Protocol Last Titration: 05/17/18 12:20 Dose: 2 mcg/min, 7.5 mls/hr Titration: 05/17/18 06:50 Dose: 6 mcg/min, 22.5 mls/hr Titration: 05/17/18 05:16 Dose: 5 mcg/min, 18.75 mls/hr Titration: 05/17/18 03:31 Dose: 4 mcg/min, 15 mls/hr Titration: 05/17/18 02:31 Dose: 3 mcg/min, 11.25 mls/hr Admin: 05/17/18 01:52 Dose: 2 mcg/min, 7.5 mls/hr Lactulose (Cephulac) 10 gm GTUBE DAILY PRN PRN Reason: Other Levetiracetam (Keppra) 1,000 mg GTUBE BID [facility] Last Admin: 05/17/18 08:29 Dose: 1,000 mg Admin: 05/16/18 20:53 Dose: 1,000 mg Lorazepam (Ativan) 0.25 mg GTUBE DAILY [facility] Last Admin: 05/17/18 08:31 Dose: 0.25 mg Lorazepam (Ativan) 2 mg IVPUSH Q4H PRN PRN Reason: Seizures Magnesium Oxide (Magnesium Oxide) 400 mg GTUBE BID [facility] Last Admin: 05/17/18 08:30 Dose: 400 mg Admin: 05/16/18 20:48 Dose: 400 mg Magnesium Sulfate (Pharmacy To Dose - Magnesium Replacement) 1 dose .XX ASDIRECTED [facility] Metoprolol Tartrate (Lopressor) 5 mg IVPUSH Q4H PRN PRN Reason: Tachycardia Last Admin: 05/16/18 19:49 Dose: 5 mg Midodrine (Midodrine) 5 mg PO TIDAC [facility] Stop: 05/18/18 07:01 Last Admin: 05/17/18 12:08 Dose: 5 mg Admin: 05/17/18 08:30 Dose: 5 mg Morphine Sulfate (Morphine 10 Mg/0.5 Ml Oral Syringe) 2 mg .XX Q2HR PRN PRN Reason: Pain Last Admin: 05/16/18 17:36 Dose: 2 mg Multivitamins (Thera) 1 each .XX BEDTIME [facility] Last Admin: 05/16/18 20:48 Dose: 1 each Nystatin (Nystatin Crm) 0 gm TOP BID [facility] Last Admin: 05/17/18 08:33 Dose: 1 applic Admin: 05/16/18 20:53 Dose: 1 applic Ondansetron HCl (Zofran Odt) 8 mg GTUBE Q6H PRN PRN Reason: Nausea Oxycodone/Acetaminophen (Percocet 325-5 Mg) 1 tab PO Q4H PRN PRN Reason: Pain (moderate 4-6) Last Admin: 05/16/18 20:48 Dose: 1 tab Potassium Chloride (Pharmacy To Dose - Potassium Replacement) 1 dose .XX ASDIRECTED [facility] Saccharomyces Boulardii (Florastor) 250 mg PO TID [facility] Last Admin: 05/17/18 08:30 Dose: 250 mg Senna/Docusate Sodium (Senna Plus) 2 tab GTUBE BID [facility] Last Admin: 05/17/18 08:30 Dose: 2 tab Admin: 05/16/18 20:48 Dose: 2 tab Tizanidine HCl (Zanaflex) 2 mg GTUBE TID [facility] Last Admin: 05/17/18 08:32 Dose: 2 mg Admin: 05/16/18 20:51 Dose: 2 mg Labs: Laboratory Tests 05/16/18 05/16/18 05/16/18 Range/Units 06:57 07:14 07:28 WBC 14.22 H (3.98-10.04) K/mm3 RBC 3.55 L (3.98-5.22) M/mm3 Hgb 8.5 L (11.2-15.7) gm/L Hct 29.1 L (34.1-44.9) % MCV 82.0 (79.4-94.8) fl MCH 23.9 L (25.6-32.2) pg MCHC 29.2 L (32.2-35.5) g/dl RDW Std Deviation 51.9 H (36.4-46.3) fL Plt Count 833 H (182-369) K/mm3 MPV 9.5 (9.4-12.3) fl Neutrophils % (Manual) 68 H (40-60) % Band Neutrophils % 8 (0-10) % Lymphocytes % (Manual) 23 (20-40) % Atypical Lymphs % 0 % Monocytes % (Manual) 1 L (2-10) % Eosinophils % (Manual) 0 L (0.7-5.8) % Basophils % (Manual) 0 L (0.1-1.2) Blast Cells % 0 Nucleated RBCs 1.0 % Platelet Estimate Marked inc Polychromasia 1+ slight Anisocytosis Sl Tear Drop Cells Few RBC Morph Comment Abn Puncture Site Rt radial ABG pH 7.61 H* (7.35-7.45) ABG pCO2 20.5 L (35.0-45.0) mmHg ABG pO2 64.0 L (80.0-100.0) mmHg ABG HCO3 20.5 L (22.0-26.0) meq/L ABG O2 Saturation 97.1 H (96.0-97.0) % ABG Base Excess -0.1 (-2-2.0) Danny Test Positive A-a Gradient 44 mmHg PEEP Not Reportable Sodium (136-145) mEq/L Potassium (3.5-5.1) mEq/L Chloride (98-107) mEq/L Carbon Dioxide (21-32) mEq/L Anion Gap (5-15) BUN (7-18) mg/dL Creatinine (0.55-1.02) mg/dL Est Cr Clr Drug Dosing Estimated GFR (MDRD) (>60) mL/min BUN/Creatinine Ratio (14-18) Glucose (74-106) mg/dL Lactic Acid (0.4-2.0) mmol/L Calcium (8.5-10.1) mg/dL Magnesium (1.8-2.4) mg/dl Total Bilirubin (0.2-1.0) mg/dL AST (15-37) U/L ALT (14-59) U/L Alkaline Phosphatase (46-116) U/L Total Protein (6.4-8.2) g/dl Albumin (3.4-5.0) g/dl Globulin gm/dL Albumin/Globulin Ratio (1-2) Urine Color Yellow (Yellow) Urine Appearance Cloudy H (Clear) Urine pH 8.5 H (5.0-8.0) Ur Specific [place] 1.015 (1.005-1.030) Urine Protein Trace H (Negative) Urine Glucose (UA) Negative (Negative) Urine Ketones Negative (Negative) Urine Occult Blood Trace-intact H (Negative) Urine Nitrite Negative (Negative) Urine Bilirubin Negative (Negative) Urine Urobilinogen 0.2 (0.2-1.0) Ur Leukocyte Esterase 3+ H (Negative) Urine RBC 0-5 (0-5) /hpf Urine WBC 75-100 H (0-5) /hpf Ur Epithelial Cells 10-20 H (0-5) /hpf Ur Squamous Epith Cells 5-10 H (0-5) /hpf Ur Renal Epithelial Cell 0-5 (0-5) /hpf Amorphous Sediment Many H (NOT SEEN) /hpf Urine Bacteria Many H (FEW) /hpf Urine Mucus Not seen (FEW) /hpf 05/16/18 05/16/18 Range/Units 07:28 07:28 WBC (3.98-10.04) K/mm3 RBC (3.98-5.22) M/mm3 Hgb (11.2-15.7) gm/L Hct (34.1-44.9) % MCV (79.4-94.8) fl MCH (25.6-32.2) pg MCHC (32.2-35.5) g/dl RDW Std Deviation (36.4-46.3) fL Plt Count (182-369) K/mm3 MPV (9.4-12.3) fl Neutrophils % (Manual) (40-60) % Band Neutrophils % (0-10) % Lymphocytes % (Manual) (20-40) % Atypical Lymphs % % Monocytes % (Manual) (2-10) % Eosinophils % (Manual) (0.7-5.8) % Basophils % (Manual) (0.1-1.2) Blast Cells % Nucleated RBCs % Platelet Estimate Polychromasia Anisocytosis Tear Drop Cells RBC Morph Comment Puncture Site ABG pH (7.35-7.45) ABG pCO2 (35.0-45.0) mmHg ABG pO2 (80.0-100.0) mmHg ABG HCO3 (22.0-26.0) meq/L ABG O2 Saturation (96.0-97.0) % ABG Base Excess (-2-2.0) Danny Test A-a Gradient mmHg PEEP Sodium 133 L (136-145) mEq/L Potassium 5.0 (3.5-5.1) mEq/L Chloride 98 (98-107) mEq/L Carbon Dioxide 20 L (21-32) mEq/L Anion Gap 20.0 H (5-15) BUN 29 H (7-18) mg/dL Creatinine 1.3 H (0.55-1.02) mg/dL Est Cr Clr Drug Dosing TNP Estimated GFR (MDRD) 43 (>60) mL/min BUN/Creatinine Ratio 22.3 H (14-18) Glucose 98 (74-106) mg/dL Lactic Acid 6.2 H (0.4-2.0) mmol/L Calcium 10.4 H (8.5-10.1) mg/dL Magnesium 1.9 (1.8-2.4) mg/dl Total Bilirubin 0.6 (0.2-1.0) mg/dL AST 66 H (15-37) U/L ALT 101 H (14-59) U/L Alkaline Phosphatase 147 H (46-116) U/L Total Protein 8.3 H (6.4-8.2) g/dl Albumin 1.2 L (3.4-5.0) g/dl Globulin 7.1 gm/dL Albumin/Globulin Ratio 0.2 L (1-2) Urine Color (Yellow) Urine Appearance (Clear) Urine pH (5.0-8.0) Ur Specific [place] (1.005-1.030) Urine Protein (Negative) Urine Glucose (UA) (Negative) Urine Ketones (Negative) Urine Occult Blood (Negative) Urine Nitrite (Negative) Urine Bilirubin (Negative) Urine Urobilinogen (0.2-1.0) Ur Leukocyte Esterase (Negative) Urine RBC (0-5) /hpf Urine WBC (0-5) /hpf Ur Epithelial Cells (0-5) /hpf Ur Squamous Epith Cells (0-5) /hpf Ur Renal Epithelial Cell (0-5) /hpf Amorphous Sediment (NOT SEEN) /hpf Urine Bacteria (FEW) /hpf Urine Mucus (FEW) /hpf Meds: Medications Generic Name Dose Route Start Last Admin Trade Name Freq PRN Reason Stop Dose Admin Acetaminophen 650 mg 05/16/18 16:19 05/17/18 00:46 Tylenol GTUBE 650 mg Q4H PRN Administration Pain/Fever Atropine Sulfate 0 ml 05/16/18 16:19 Atropine 1% Ophth Soln SL Q4H PRN extra secretions Cholecalciferol 2,000 units 05/17/18 09:00 05/17/18 08:30 Vitamin D3 GTUBE 2,000 units DAILY [facility] Administration Enoxaparin Sodium 40 mg 05/17/18 09:00 05/17/18 08:33 Lovenox SUBCUT 40 mg DAILY [facility] Administration Famotidine 20 mg 05/17/18 09:00 05/17/18 08:30 Pepcid PO 20 mg BID [facility] Administration Fluoxetine HCl 10 mg 05/17/18 09:00 05/17/18 08:32 Prozac GTUBE 10 mg DAILY [facility] Administration Hydralazine HCl 20 mg 05/16/18 19:30 Apresoline IVPUSH Q4H PRN Hypertension Hydrocortisone Sodium Succinate 100 mg 05/17/18 06:00 05/17/18 12:08 Solu-Cortef IVPUSH 100 mg Q6H [facility] Administration Sodium Chloride 1,000 mls @ 125 mls/hr 05/16/18 19:45 05/17/18 12:08 Normal Saline IV 125 mls/hr ASDIRECTED [facility] Administration Levofloxacin/Dextrose 500 mg/ 100 mls @ 100 mls/hr 05/16/18 20:00 05/16/18 20 :48 Premix IV 100 mls/hr Q24H [facility] Administration Piperacillin Sod/Tazobactam 100 mls @ 25 mls/hr 05/16/18 21:00 05/17/18 12:08 Sod 4.5 gm/ Sodium Chloride IV 25 mls/hr Q8H [facility] Administration Vancomycin HCl 1 gm/ Sodium 250 mls @ 250 mls/hr 05/17/18 01:00 05/17/18 13: 43 Chloride IV 250 mls/hr Q12H [facility] Administration Norepinephrine Bitartrate 4 mg 250 mls @ 7.5 mls/hr 05/17/18 01:30 05/17/18 12:20 / Dextrose/Water IV 2 mcg/min TITRATE [facility] 7.5 mls/hr Titration Protocol 2 MCG/MIN Lactulose 10 gm 05/16/18 16:19 Cephulac GTUBE DAILY PRN Other Levetiracetam 1,000 mg 05/16/18 21:00 05/17/18 08:29 Keppra GTUBE 1,000 mg BID [facility] Administration Lorazepam 0.25 mg 05/17/18 09:00 05/17/18 08:31 Ativan GTUBE 0.25 mg DAILY [facility] Administration Lorazepam 2 mg 05/16/18 19:30 Ativan IVPUSH Q4H PRN Seizures Magnesium Oxide 400 mg 05/16/18 21:00 05/17/18 08:30 Magnesium Oxide GTUBE 400 mg BID [facility] Administration Magnesium Sulfate 1 dose 05/16/18 19:30 Pharmacy To Dose - Magnesium Replacement .XX ASDIRECTED [facility] Metoprolol Tartrate 5 mg 05/16/18 19:30 05/16/18 19:49 Lopressor IVPUSH 5 mg Q4H PRN Administration Tachycardia Midodrine 5 mg 05/17/18 07:00 05/17/18 12:08 Midodrine PO 05/18/18 07:01 5 mg TIDAC [facility] Administration Morphine Sulfate 2 mg 05/16/18 16:19 05/16/18 17:36 Morphine 10 Mg/0.5 Ml Oral Syringe .XX 2 mg Q2HR PRN Administration Pain Multivitamins 1 each 05/16/18 21:00 05/16/18 20:48 Thera .XX 1 each BEDTIME [facility] Administration Nystatin 0 gm 05/16/18 21:00 05/17/18 08:33 Nystatin Crm TOP 1 applic BID [facility] Administration Ondansetron HCl 8 mg 05/16/18 16:19 Zofran Odt GTUBE Q6H PRN Nausea Oxycodone/Acetaminophen 1 tab 05/16/18 16:19 05/16/18 20:48 Percocet 325-5 Mg PO 1 tab Q4H PRN Administration Pain (moderate 4-6) Potassium Chloride 1 dose 05/16/18 19:30 Pharmacy To Dose - Potassium Replacement .XX ASDIRECTED [facility] Saccharomyces Boulardii 250 mg 05/17/18 09:00 05/17/18 08:30 Florastor PO 250 mg TID [facility] Administration Senna/Docusate Sodium 2 tab 05/16/18 21:00 05/17/18 08:30 Senna Plus GTUBE 2 tab BID [facility] Administration Tizanidine HCl 2 mg 05/16/18 21:00 05/17/18 08:32 Zanaflex GTUBE 2 mg TID [facility] Administration Discontinued Medications Generic Name Dose Route Start Last Admin Trade Name Freq PRN Reason Stop Dose Admin Enoxaparin Sodium 40 mg 05/16/18 23:30 05/17/18 00:14 Lovenox SUBCUT Not Given BEDTIME [facility] Hydrocortisone Sodium Succinate 100 mg 05/16/18 23:00 05/17/18 00:14 Solu-Cortef IVPUSH Not Given Q6H [facility] Piperacillin Sod/Tazobactam 100 mls @ 25 mls/hr 05/16/18 06:35 05/16/18 07:18 Sod 4.5 gm/ Sodium Chloride IV 05/16/18 10:34 25 mls/hr ONETIME STA Administration Sodium Chloride 1,000 mls @ 999 mls/hr 05/16/18 06:35 05/16/18 07:18 Normal Saline IV 05/16/18 07:35 999 mls/hr ONETIME ONE Administration Dextrose/Sodium Chloride 1,000 mls @ 75 mls/hr 05/16/18 09:30 05/16/18 09:44 Dextrose 5%-Normal Saline IV 75 mls/hr ASDIRECTED [facility] Administration Sodium Chloride 2,000 mls @ 999 mls/hr 05/16/18 16:23 05/16/18 17:16 Normal Saline IV 05/16/18 18:23 999 mls/hr ONETIME ONE Administration Sodium Chloride Confirm 05/16/18 17:31 05/16/18 17:40 Normal Saline Administered 05/16/18 17:32 Not Given Dose 1,000 mls @ as directed .ROUTE .STK-MED ONE Non-Formulary Medication 260 ml 05/16/18 18:00 05/17/18 11:31 Lactose-Reduced Food/Fiber [Jevity 1.2 Ugo Liquid] GTUBE Not Given 5XDAY [facility] Non-Formulary Medication 100 ml 05/16/18 21:00 05/17/18 10:25 Water [Water] GTUBE Not Given TID [facility] Potassium Chloride 20 meq 05/16/18 21:00 05/16/18 20:52 Potassium Chloride Solution PO 20 meq BID [facility] Administration - Re-Assessments/Exams Free Text/Narrative Re-Assessment/Exam: 05/16/18 07:[address] Hackett at change of shift. Blood gases are now available showing a pH of 7.61 i.e. metabolic alkalosis partially compensated. PCO2 is 20.5 with a PO2 of 64. 02 Sats are 97.1%. 05/16/18 07:53 portable chest x-ray reveals normal cardiac silhouette. Poor inspiratory effort. There is some haziness along the right hemidiaphragm and blunting of the right costophrenic angle. Appears to have mild diffuse vascular congestion. No definitive pneumonia identified 05/16/18 08:19 Labs reveal an elevated white count at 14.22 with 68% neutrophils and 8% bands. I.e. significant left shift. Hemoglobin is low at 8.5 with hematocrit of 29.1. Platelet count is 833,000 severe essential thrombocytosis. Sodium is low at 133. Potassium is 5.0. Chloride is 98 with a bicarbonate of 20. Anion gap is 20 as well. BUNs 29 with a creatinine of 1.3. Estimated GFR is 43. BUN/creatinine ratio is 22.3. Glucose is 98 with a calcium slightly elevated at 10.4. Magnesium is 1.9. Bilirubin is 0.6 AST is 66 with an ALT 101 alkaline phosphatase days 147. Total protein elevated at 8.3 and albumin at 1.2. Urine shows a pH of 8.5. Trace protein and trace occult blood 3 + leukocyte esterase. White cell 75-100 per high-power field epithelial cells 10 -20 suggesting polynephritis. 5-10 squamous epithelial cells. Many bacteria seen urine culture ordered 05/16/18 09:30 blood pressure has fallen down to 79 systolic. She is completed liter of IV fluids. Second liter will be D5 normal saline 75 mils per hour for compassionate terminal care.I spoke with Dr Skelton and he has accepted care per med surgery on telemetry. Departure - Departure Time of Disposition: 09:33 Disposition: Admitted As Inpatient 68 Condition: Serious Clinical Impression: Upper urinary tract infection, Multiple sclerosis, Dementia Sepsis Qualifiers: Sepsis type: Escherichia coli Qualified Code(s): A41.51 - Sepsis due to Escherichia coli [E. coli] - Discharge Information *PRESCRIPTION DRUG MONITORING PROGRAM REVIEWED*: Not Applicable *COPY OF PRESCRIPTION DRUG MONITORING REPORT IN PATIENT DEVIKA: Not Applicable <Ethan Hackett - Last Filed: 05/17/18 14:43> ED HPI GENERAL MEDICAL PROBLEM - General Source of Information: Reports: EMS History Limitations: Reports: Altered Mental Status - History of Present Illness INITIAL COMMENTS - FREE TEXT/NARRATIVE: The patient is brought from [facility] with a report that she has had a fever for the past 2 days and decreased responsiveness for the past 1.5 days. We are told that the patient has a history of MS, and that she is both DNR and DNI. We are told that it is expected that the patient will , but that the patient's mother did not want the patient to at the [facility] , and insisted that the patient be brought here. Of note, we do not have any inpatient beds available at this time. Past Medical History Cardiovascular History: Reports: Blood Clots/VTE/DVT Gastrointestinal History: Reports: Other (See Below) (Dysphagia) Genitourinary History: Reports: Acute Renal Failure, Retention, Urinary ( neurogenic bladder) Musculoskeletal History: Reports: Back Pain, Chronic, Osteoarthritis, Osteoporosis Neurological History: Reports: Alzheimers Disease, CVA, MS, Seizure, TIA Psychiatric History: Reports: Anxiety, Depression Endocrine/Metabolic History: Reports: Diabetes, Type II Hematologic History: Reports: Anemia - Past Surgical History GI Surgical History: Reports: Other (See Below) (PEG) Social & Family History - Family History Family Medical History: Unobtainable - Tobacco Use Smoking Status *Q: Never Smoker - Caffeine Use Caffeine Use: Reports: None - Alcohol Use Alcohol Use History: No - Recreational Drug Use Recreational Drug Use: No - Living Situation & Occupation Living situation: Reports: Extended Care Facility ([facility]) Occupation: Disabled ED ROS GENERAL - Review of Systems Review Of Systems: Unable To Obtain ED EXAM, SEPSIS - Physical Exam Exam: See Below Exam Limited By: Physical Impairment General Appearance: Obtunded Ears: Normal External Exam Nose: Normal Inspection Throat/Mouth: Normal Inspection, Normal Lips, No Airway Compromise Head: Atraumatic, Normocephalic Neck: Normal Inspection Respiratory/Chest: No Respiratory Distress, Lungs Clear, Normal Breath Sounds, No Accessory Muscle Use Cardiovascular: Normal Peripheral Pulses, No Edema, No Gallop, No JVD, No Murmur , No Rub, Tachycardia (regular) Peripheral Pulses: 3+: Radial (L), Radial (R) GI/Abdominal Exam: Normal Bowel Sounds, Soft, Non-Tender, No Organomegaly, No Distention, No Abnormal Bruit, No Mass, Other (PEG in upper abdomen C/D/I) (Female) Exam: Deferred Rectal (Female) Exam: Deferred Extremities: Other (Warm, but mottled BUEs, BLEs) Neurological: Other (Obtunded) Skin: Warm, Dry, Intact Lymphatic: Bilateral: No Adenopathy EKG INTERPRETATION EKG Date: 05/16/18 Time: 06:45 Rhythm: Other (Sinus tachycardia) Rate (Beats/Min): 166 [place]: Normal P-Wave: Present QRS: Normal ST-T: Normal QT: Normal Comparison: No Change (03/05/2018) Course - Vital Signs Last Recorded V/S: Last Vital Signs Temp 36.2 C 05/17/18 12:00 Pulse 99 05/17/18 14:00 Resp 16 05/17/18 12:00 BP 105/50 L 05/17/18 14:00 Pulse Ox 93 L 05/17/18 13:44 - Orders/Labs/Meds Labs: Laboratory Tests 05/16/18 05/16/18 05/16/18 Range/Units 06:57 07:14 07:28 WBC 14.22 H (3.98-10.04) K/mm3 RBC 3.55 L (3.98-5.22) M/mm3 Hgb 8.5 L (11.2-15.7) gm/L Hct 29.1 L (34.1-44.9) % MCV 82.0 (79.4-94.8) fl MCH 23.9 L (25.6-32.2) pg MCHC 29.2 L (32.2-35.5) g/dl RDW Std Deviation 51.9 H (36.4-46.3) fL Plt Count 833 H (182-369) K/mm3 MPV 9.5 (9.4-12.3) fl Neutrophils % (Manual) 68 H (40-60) % Band Neutrophils % 8 (0-10) % Lymphocytes % (Manual) 23 (20-40) % Atypical Lymphs % 0 % Monocytes % (Manual) 1 L (2-10) % Eosinophils % (Manual) 0 L (0.7-5.8) % Basophils % (Manual) 0 L (0.1-1.2) Blast Cells % 0 Nucleated RBCs 1.0 % Platelet Estimate Marked inc Polychromasia 1+ slight Anisocytosis Sl Tear Drop Cells Few RBC Morph Comment Abn Puncture Site Rt radial ABG pH 7.61 H* (7.35-7.45) ABG pCO2 20.5 L (35.0-45.0) mmHg ABG pO2 64.0 L (80.0-100.0) mmHg ABG HCO3 20.5 L (22.0-26.0) meq/L ABG O2 Saturation 97.1 H (96.0-97.0) % ABG Base Excess -0.1 (-2-2.0) Danny Test Positive A-a Gradient 44 mmHg PEEP Not Reportable Sodium (136-145) mEq/L Potassium (3.5-5.1) mEq/L Chloride (98-107) mEq/L Carbon Dioxide (21-32) mEq/L Anion Gap (5-15) BUN (7-18) mg/dL Creatinine (0.55-1.02) mg/dL Est Cr Clr Drug Dosing Estimated GFR (MDRD) (>60) mL/min BUN/Creatinine Ratio (14-18) Glucose (74-106) mg/dL Lactic Acid (0.4-2.0) mmol/L Calcium (8.5-10.1) mg/dL Magnesium (1.8-2.4) mg/dl Total Bilirubin (0.2-1.0) mg/dL AST (15-37) U/L ALT (14-59) U/L Alkaline Phosphatase (46-116) U/L Total Protein (6.4-8.2) g/dl Albumin (3.4-5.0) g/dl Globulin gm/dL Albumin/Globulin Ratio (1-2) Urine Color Yellow (Yellow) Urine Appearance Cloudy H (Clear) Urine pH 8.5 H (5.0-8.0) Ur Specific [place] 1.015 (1.005-1.030) Urine Protein Trace H (Negative) Urine Glucose (UA) Negative (Negative) Urine Ketones Negative (Negative) Urine Occult Blood Trace-intact H (Negative) Urine Nitrite Negative (Negative) Urine Bilirubin Negative (Negative) Urine Urobilinogen 0.2 (0.2-1.0) Ur Leukocyte Esterase 3+ H (Negative) Urine RBC 0-5 (0-5) /hpf Urine WBC 75-100 H (0-5) /hpf Ur Epithelial Cells 10-20 H (0-5) /hpf Ur Squamous Epith Cells 5-10 H (0-5) /hpf Ur Renal Epithelial Cell 0-5 (0-5) /hpf Amorphous Sediment Many H (NOT SEEN) /hpf Urine Bacteria Many H (FEW) /hpf Urine Mucus Not seen (FEW) /hpf 05/16/18 05/16/18 Range/Units 07:28 07:28 WBC (3.98-10.04) K/mm3 RBC (3.98-5.22) M/mm3 Hgb (11.2-15.7) gm/L Hct (34.1-44.9) % MCV (79.4-94.8) fl MCH (25.6-32.2) pg MCHC (32.2-35.5) g/dl RDW Std Deviation (36.4-46.3) fL Plt Count (182-369) K/mm3 MPV (9.4-12.3) fl Neutrophils % (Manual) (40-60) % Band Neutrophils % (0-10) % Lymphocytes % (Manual) (20-40) % Atypical Lymphs % % Monocytes % (Manual) (2-10) % Eosinophils % (Manual) (0.7-5.8) % Basophils % (Manual) (0.1-1.2) Blast Cells % Nucleated RBCs % Platelet Estimate Polychromasia Anisocytosis Tear Drop Cells RBC Morph Comment Puncture Site ABG pH (7.35-7.45) ABG pCO2 (35.0-45.0) mmHg ABG pO2 (80.0-100.0) mmHg ABG HCO3 (22.0-26.0) meq/L ABG O2 Saturation (96.0-97.0) % ABG Base Excess (-2-2.0) Danny Test A-a Gradient mmHg PEEP Sodium 133 L (136-145) mEq/L Potassium 5.0 (3.5-5.1) mEq/L Chloride 98 (98-107) mEq/L Carbon Dioxide 20 L (21-32) mEq/L Anion Gap 20.0 H (5-15) BUN 29 H (7-18) mg/dL Creatinine 1.3 H (0.55-1.02) mg/dL Est Cr Clr Drug Dosing TNP Estimated GFR (MDRD) 43 (>60) mL/min BUN/Creatinine Ratio 22.3 H (14-18) Glucose 98 (74-106) mg/dL Lactic Acid 6.2 H (0.4-2.0) mmol/L Calcium 10.4 H (8.5-10.1) mg/dL Magnesium 1.9 (1.8-2.4) mg/dl Total Bilirubin 0.6 (0.2-1.0) mg/dL AST 66 H (15-37) U/L ALT 101 H (14-59) U/L Alkaline Phosphatase 147 H (46-116) U/L Total Protein 8.3 H (6.4-8.2) g/dl Albumin 1.2 L (3.4-5.0) g/dl Globulin 7.1 gm/dL Albumin/Globulin Ratio 0.2 L (1-2) Urine Color (Yellow) Urine Appearance (Clear) Urine pH (5.0-8.0) Ur Specific [place] (1.005-1.030) Urine Protein (Negative) Urine Glucose (UA) (Negative) Urine Ketones (Negative) Urine Occult Blood (Negative) Urine Nitrite (Negative) Urine Bilirubin (Negative) Urine Urobilinogen (0.2-1.0) Ur Leukocyte Esterase (Negative) Urine RBC (0-5) /hpf Urine WBC (0-5) /hpf Ur Epithelial Cells (0-5) /hpf Ur Squamous Epith Cells (0-5) /hpf Ur Renal Epithelial Cell (0-5) /hpf Amorphous Sediment (NOT SEEN) /hpf Urine Bacteria (FEW) /hpf Urine Mucus (FEW) /hpf Meds: Medications Generic Name Dose Route Start Last Admin Trade Name Freq PRN Reason Stop Dose Admin Acetaminophen 650 mg 05/16/18 16:19 05/17/18 00:46 Tylenol GTUBE 650 mg Q4H PRN Administration Pain/Fever Atropine Sulfate 0 ml 05/16/18 16:19 Atropine 1% Ophth Soln SL Q4H PRN extra secretions Cholecalciferol 2,000 units 05/17/18 09:00 05/17/18 08:30 Vitamin D3 GTUBE 2,000 units DAILY KHAI Administration Enoxaparin Sodium 40 mg 05/17/18 09:00 05/17/18 08:33 Lovenox SUBCUT 40 mg DAILY KHAI Administration Famotidine 20 mg 05/17/18 09:00 05/17/18 08:30 Pepcid PO 20 mg BID KHAI Administration Fluoxetine HCl 10 mg 05/17/18 09:00 05/17/18 08:32 Prozac GTUBE 10 mg DAILY KHAI Administration Hydralazine HCl 20 mg 05/16/18 19:30 Apresoline IVPUSH Q4H PRN Hypertension Hydrocortisone Sodium Succinate 100 mg 05/17/18 06:00 05/17/18 12:08 Solu-Cortef IVPUSH 100 mg Q6H KHAI Administration Sodium Chloride 1,000 mls @ 125 mls/hr 05/16/18 19:45 05/17/18 12:08 Normal Saline IV 125 mls/hr ASDIRECTED KHAI Administration Levofloxacin/Dextrose 500 mg/ 100 mls @ 100 mls/hr 05/16/18 20:00 05/16/18 20 :48 Premix IV 100 mls/hr Q24H KHAI Administration Piperacillin Sod/Tazobactam 100 mls @ 25 mls/hr 05/16/18 21:00 05/17/18 12:08 Sod 4.5 gm/ Sodium Chloride IV 25 mls/hr Q8H KHAI Administration Vancomycin HCl 1 gm/ Sodium 250 mls @ 250 mls/hr 05/17/18 01:00 05/17/18 13: 43 Chloride IV 250 mls/hr Q12H KHAI Administration Norepinephrine Bitartrate 4 mg 250 mls @ 7.5 mls/hr 05/17/18 01:30 05/17/18 12:20 / Dextrose/Water IV 2 mcg/min TITRATE KHAI 7.5 mls/hr Titration Protocol 2 MCG/MIN Lactulose 10 gm 05/16/18 16:19 Cephulac GTUBE DAILY PRN Other Levetiracetam 1,000 mg 05/16/18 21:00 05/17/18 08:29 Keppra GTUBE 1,000 mg BID KHAI Administration Lorazepam 0.25 mg 05/17/18 09:00 05/17/18 08:31 Ativan GTUBE 0.25 mg DAILY KHAI Administration Lorazepam 2 mg 05/16/18 19:30 Ativan IVPUSH Q4H PRN Seizures Magnesium Oxide 400 mg 05/16/18 21:00 05/17/18 08:30 Magnesium Oxide GTUBE 400 mg BID KHAI Administration Magnesium Sulfate 1 dose 05/16/18 19:30 Pharmacy To Dose - Magnesium Replacement .XX ASDIRECTED [facility] Metoprolol Tartrate 5 mg 05/16/18 19:30 05/16/18 19:49 Lopressor IVPUSH 5 mg Q4H PRN Administration Tachycardia Midodrine 5 mg 05/17/18 07:00 05/17/18 12:08 Midodrine PO 05/18/18 07:01 5 mg TIDAC KHAI Administration Morphine Sulfate 2 mg 05/16/18 16:19 05/16/18 17:36 Morphine 10 Mg/0.5 Ml Oral Syringe .XX 2 mg Q2HR PRN Administration Pain Multivitamins 1 each 05/16/18 21:00 05/16/18 20:48 Thera .XX 1 each BEDTIME KHAI Administration Nystatin 0 gm 05/16/18 21:00 05/17/18 08:33 Nystatin Crm TOP 1 applic BID KHAI Administration Ondansetron HCl 8 mg 05/16/18 16:19 Zofran Odt GTUBE Q6H PRN Nausea Oxycodone/Acetaminophen 1 tab 05/16/18 16:19 05/16/18 20:48 Percocet 325-5 Mg PO 1 tab Q4H PRN Administration Pain (moderate 4-6) Potassium Chloride 1 dose 05/16/18 19:30 Pharmacy To Dose - Potassium Replacement .XX ASDIRECTED KHAI Saccharomyces Boulardii 250 mg 05/17/18 09:00 05/17/18 08:30 Florastor PO 250 mg TID KHAI Administration Senna/Docusate Sodium 2 tab 05/16/18 21:00 05/17/18 08:30 Senna Plus GTUBE 2 tab BID KHAI Administration Tizanidine HCl 2 mg 05/16/18 21:00 05/17/18 08:32 Zanaflex GTUBE 2 mg TID KHAI Administration Discontinued Medications Generic Name Dose Route Start Last Admin Trade Name Freq PRN Reason Stop Dose Admin Enoxaparin Sodium 40 mg 05/16/18 23:30 05/17/18 00:14 Lovenox SUBCUT Not Given BEDTIME KHAI Hydrocortisone Sodium Succinate 100 mg 05/16/18 23:00 05/17/18 00:14 Solu-Cortef IVPUSH Not Given Q6H KHAI Piperacillin Sod/Tazobactam 100 mls @ 25 mls/hr 05/16/18 06:35 05/16/18 07:18 Sod 4.5 gm/ Sodium Chloride IV 05/16/18 10:34 25 mls/hr ONETIME STA Administration Sodium Chloride 1,000 mls @ 999 mls/hr 05/16/18 06:35 05/16/18 07:18 Normal Saline IV 05/16/18 07:35 999 mls/hr ONETIME ONE Administration Dextrose/Sodium Chloride 1,000 mls @ 75 mls/hr 05/16/18 09:30 05/16/18 09:44 Dextrose 5%-Normal Saline IV 75 mls/hr ASDIRECTED KHAI Administration Sodium Chloride 2,000 mls @ 999 mls/hr 05/16/18 16:23 05/16/18 17:16 Normal Saline IV 05/16/18 18:23 999 mls/hr ONETIME ONE Administration Sodium Chloride Confirm 05/16/18 17:31 05/16/18 17:40 Normal Saline Administered 05/16/18 17:32 Not Given Dose 1,000 mls @ as directed .ROUTE .STK-MED ONE Non-Formulary Medication 260 ml 05/16/18 18:00 05/17/18 11:31 Lactose-Reduced Food/Fiber [Jevity 1.2 Ugo Liquid] GTUBE Not Given 5XDAY KHAI Non-Formulary Medication 100 ml 05/16/18 21:00 05/17/18 10:25 Water [Water] GTUBE Not Given TID KHAI Potassium Chloride 20 meq 05/16/18 21:00 05/16/18 20:52 Potassium Chloride Solution PO 20 meq BID KHAI Administration - Re-Assessments/Exams Free Text/Narrative Re-Assessment/Exam: 05/16/18 06:39 As per the physical examination, the patient is unresponsive with mottled skin. She is somewhat hypotensive and tachycardic. She appears to be septic. I have ordered a septic workup, along with IV fluid and empiric Zosyn. At present, the patient's oxygen saturation is 94% on room air, and she does not appear to be struggling to breathe, however, if her respiratory status declines, there is not much that we can do other than placing supplemental oxygen, as she is not a candidate for BiPAP due to her decreased mental status, and she is not a candidate for endotracheal intubation, due to her DNI status. 05/16/18 07:[address] Figueroa,a nd care of the patient turned over to him at this time, for change of shift.
--- NOTE | 2018-05-16 08:22 | CR ---
Chest: Portable view of the chest was obtained. Comparison: Previous chest x-ray of 03/05/18. Slight parenchymal density is noted adjacent to the right hemidiaphragm. Lungs otherwise are clear. Heart size and mediastinum are normal. Bony structures are grossly intact. Impression: 1. Slight density adjacent to the right hemidiaphragm most likely representing atelectasis. 2. Nothing acute is otherwise seen on portable chest x-ray. Diagnostic code #2
[2018-05-16] MEDS ORDERED: Dextrose 5%-0.9% NaCl 1,000 ML IV SCH (09:30)
[2018-05-16] MEDS ORDERED: Atropine 1% Ophth Soln 5 ML BOTTLE SL PRN (16:19)
[2018-05-16] MEDS ORDERED: Ondansetron 4 MG Tab.DIS GTUBE PRN (16:19)
[2018-05-16] MEDS ORDERED: Lactulose Soln 10 GM/15 ML 30 ML UD Cup GTUBE PRN (16:19)
[2018-05-16] MEDS ORDERED: Acetaminophen 325 MG/10.15 ML ML GTUBE PRN (16:19)
--- NOTE | 2018-05-16 16:22 | PCM.HP ---
H&P History of Present Illness - General Date of Service: 05/16/18 Admit Problem/Dx: Admission Diagnosis/Problem Admission Diagnosis/Problem Urosepsis Source of Information: Patient, Old Records, Provider, RN Notes Reviewed History Limitations: Reports: Language Barrier, Physical Impairment - History of Present Illness Initial Comments - Free Text/Narative: This is a 57 yo white female with past medical hx/o Dysphagia, Urinary Retention , Back Pain, OA, Spasms, Osteoporosis, CVA/TIA, Advanced MS, Anemia, CKD, Seizure Disorder, Hx/o DVT/VTE, Alzheimer's Disease, DM2, Anxiety, and Depression who was brought in from [facility] due to febrile illness associated with decreased responsiveness in the past a couple of days. Per ED notes, ED staff were told that it is expected she will but her mother did not want patient to in the [facility] and would rather be brought here in the hospital. Dr. Figueroa also informed me that this patient is comfort measures. Her initial work up in ED shows CBC remarkable for WBC of 14.22, RBC of 3.55, Hgb of 8.5, Hct of 29.1, MCH of 23.9, MCHC of 29.2, RDW of 51.9, Platelet of 833 , Neutrophils of 68% and Monocytes of 1%. Her ABG shows a pH of 7.61, pCO2 of 20.5, pO2 of 64, HCO3 of 20.5 and O2 Sat of 97.1%. Her chemistry is significant for Sodium of 133, CO2 of 20, AG of 20, BUN of 29, Cr of 1.3, LA of 6.2 and Ca of 10.4, AST of 66, ALT of 101, Alk Phos of 147, Total Protein of 8.3, and Albumin of 1.2. Her UA is strongly suggestive of UTI. Her CXR shows atelectasis on the bases. Her BPs have been significantly low, with RR in the 20-30s, HR as high as 160 and a Temp of 39 C on presentation to ED. Patient is being admitted for Sepsis secondary to UTI. She is DNR/DNI/Comfort Measures. - Related Data Allergies/Adverse Reactions: Allergies Allergy/AdvReac Type Severity Reaction Status Date / Time No Known Allergies Allergy Verified 03/05/18 14:24 Home Medications: Home Meds tiZANidine HCl [Zanaflex] 2 mg GTUBE TID 04/06/14 [History] levETIRAcetam [Levetiracetam] 10 ml GTUBE BID 12/23/16 [History] Acetaminophen 650 mg GTUBE Q4H PRN 03/05/18 [History] LORazepam [Ativan] 0.25 mg GTUBE DAILY 03/05/18 [History] Acetaminophen/oxyCODONE [Percocet 325-5 MG] 1 tab PO Q4H PRN #45 tablet [Rx] Atropine 1% [Atropine 1% Ophth Soln] 2 drop PO Q4HR PRN 05/16/18 [History] Cholecalciferol (Vitamin D3) [Vitamin D3] 2,000 unit GTUBE DAILY 05/16/18 [ History] FA/Lycopene/Lut/MV,Ca,Iron,Min [Centrum] 1 tab GTUBE BEDTIME 05/16/18 [History] FLUoxetine [PROzac] 10 mg GTUBE DAILY 05/16/18 [History] Lactose-Reduced Food/Fiber [Jevity 1.2 Ugo Liquid] 260 ml GTUBE 5XDAY 05/16/18 [ History] Lactulose 15 ml GTUBE DAILY PRN 05/16/18 [History] Magnesium Oxide [Magnesium] 400 mg GTUBE BID 05/16/18 [History] Morphine [Morphine 10 MG/0.5 ML Oral Syringe] 2 mg GTUBE Q2HR PRN 05/16/18 [ History] Nystatin 15 gm TP BID 05/16/18 [History] Ondansetron [Zofran] 8 mg GTUBE Q6H PRN 05/16/18 [History] Potassium Chloride [Potassium Chloride Solution] 15 ml PO BID 05/16/18 [History] Sennosides/Docusate Sodium [Senna Plus Tablet] 2 each GTUBE BID 05/16/18 [ History] Sulfamethoxazole/Trimethoprim [Sulfatrim 800-160 mg/20 ml Jayshree] 20 ml PO BID [History] Water 100 ml GTUBE TID 05/16/18 [History] Past Medical History HEENT History: Reports: Other (See Below) Other HEENT History: dysphagia,aphasia Cardiovascular History: Reports: Blood Clots/VTE/DVT Other Cardiovascular History: hypomagnesemia, hypokalemia Respiratory History: Reports: Pneumonia, Recurrent Gastrointestinal History: Reports: Other (See Below) Other Gastrointestinal History: kyle-head tube in place Genitourinary History: Reports: Acute Renal Failure, Retention, Urinary, UTI, Recurrent Other Genitourinary History: chronic kidney disease Musculoskeletal History: Reports: Back Pain, Chronic, Osteoarthritis, Osteoporosis Other Musculoskeletal History: MS Neurological History: Reports: Alzheimers Disease, CVA, MS, Seizure, TIA Other Neuro History: encephalopathy, insomnia Psychiatric History: Reports: Anxiety, Depression Other Psychiatric History: insomnia, Endocrine/Metabolic History: Reports: Diabetes, Type II Other Endocrine/Metabolic History: disorders of magnesium metabolism, anemia, hypercalcemia, hypokalemia Hematologic History: Reports: Anemia Other Hematologic History: hyponmagnesemia, septic shock Other Dermatologic History: candidasis, follicular disorder - Infectious Disease History Infectious Disease History: Reports: MRSA Other Infectious Disease History: not on NH paperwork, patient unable to answer - Past Surgical History Head Surgeries/Procedures: Reports: None Other Musculoskeletal Surgeries/Procedures:: contractures of muscles Social & Family History - Family History Family Medical History: Unobtainable - Tobacco Use Smoking Status *Q: Unknown Ever Smoked - Caffeine Use Caffeine Use: Reports: None - Recreational Drug Use Recreational Drug Use: No - Living Situation & Occupation Living situation: Reports: Extended Care Facility ([facility]) Occupation: Disabled H&P Review of Systems - Review of Systems: Review Of Systems: Unable To Obtain Review of Systems Comment:: Has advanced MS and unknown baseline cognition. She is able to talk but non- sensible. Exam - Exam Exam: See Below - Vital Signs Vital Signs: Last Vital Signs Temp 39.0 C H 05/16/18 06:31 Pulse 161 H 05/16/18 06:31 Resp 33 H 05/16/18 06:31 BP 105/70 05/16/18 06:31 Pulse Ox 94 L 05/16/18 06:31 Weight: 66.27 kg - Exam General: Alert, Other (awake and does not look she is actively dying). No: Oriented, Cooperative HEENT: Conjunctiva Clear, Hearing Intact, Nares Patent, Normal Nasal Septum, Other (her lips a chapped and dry). No: Mucosa Moist & [place] Neck: Supple Lungs: Normal Respiratory Effort. No: Decreased Breath Sounds Cardiovascular: Tachycardia GI/Abdominal Exam: Normal Bowel Sounds, Soft, Non-Tender, No Organomegaly, No Abnormal Bruit, No Mass, Distended, Other (Gastric tube) (Female) Exam: Deferred Rectal (Female) Exam: Deferred Back Exam: Other (deferred) Extremities: Normal Range of Motion, Non-Tender, No Pedal Edema, Normal Capillary Refill, Other (right hand contracture) Peripheral Pulses: 2+: Posterior Tibial (L), Posterior Tibial (R), Dorsalis Pedis (L), Dorsalis Pedis (R) Skin: Warm, Dry, Intact Neuro Extensive - Mental Status: Other (awake but not able to follow commands) Neuro Extensive - Motor, Sensory, Reflexes: Other (not appropriate, she is not able to follow commands) Psychiatric: Normal Affect, Other - Patient Data Lab Results Last 24 hrs: Laboratory Results - last 24 hr 05/16/18 05/16/18 05/16/18 Range/Units 06:57 07:14 07:28 WBC 14.22 H (3.98-10.04) K/mm3 RBC 3.55 L (3.98-5.22) M/mm3 Hgb 8.5 L (11.2-15.7) gm/L Hct 29.1 L (34.1-44.9) % MCV 82.0 (79.4-94.8) fl MCH 23.9 L (25.6-32.2) pg MCHC 29.2 L (32.2-35.5) g/dl RDW Std Deviation 51.9 H (36.4-46.3) fL Plt Count 833 H (182-369) K/mm3 MPV 9.5 (9.4-12.3) fl Neutrophils % (Manual) 68 H (40-60) % Band Neutrophils % 8 (0-10) % Lymphocytes % (Manual) 23 (20-40) % Atypical Lymphs % 0 % Monocytes % (Manual) 1 L (2-10) % Eosinophils % (Manual) 0 L (0.7-5.8) % Basophils % (Manual) 0 L (0.1-1.2) Blast Cells % 0 Nucleated RBCs 1.0 % Platelet Estimate Marked inc Polychromasia 1+ slight Anisocytosis Sl Tear Drop Cells Few RBC Morph Comment Abn Puncture Site Rt radial ABG pH 7.61 H* (7.35-7.45) ABG pCO2 20.5 L (35.0-45.0) mmHg ABG pO2 64.0 L (80.0-100.0) mmHg ABG HCO3 20.5 L (22.0-26.0) meq/L ABG O2 Saturation 97.1 H (96.0-97.0) % ABG Base Excess -0.1 (-2-2.0) Danny Test Positive A-a Gradient 44 mmHg PEEP Not Reportable Sodium (136-145) mEq/L Potassium (3.5-5.1) mEq/L Chloride (98-107) mEq/L Carbon Dioxide (21-32) mEq/L Anion Gap (5-15) BUN (7-18) mg/dL Creatinine (0.55-1.02) mg/dL Est Cr Clr Drug Dosing Estimated GFR (MDRD) (>60) mL/min BUN/Creatinine Ratio (14-18) Glucose (74-106) mg/dL Lactic Acid (0.4-2.0) mmol/L Calcium (8.5-10.1) mg/dL Magnesium (1.8-2.4) mg/dl Total Bilirubin (0.2-1.0) mg/dL AST (15-37) U/L ALT (14-59) U/L Alkaline Phosphatase (46-116) U/L Total Protein (6.4-8.2) g/dl Albumin (3.4-5.0) g/dl Globulin gm/dL Albumin/Globulin Ratio (1-2) Urine Color Yellow (Yellow) Urine Appearance Cloudy H (Clear) Urine pH 8.5 H (5.0-8.0) Ur Specific [employer] [place] 1.015 (1.005-1.030) Urine Protein Trace H (Negative) Urine Glucose (UA) Negative (Negative) Urine Ketones Negative (Negative) Urine Occult Blood Trace-intact H (Negative) Urine Nitrite Negative (Negative) Urine Bilirubin Negative (Negative) Urine Urobilinogen 0.2 (0.2-1.0) Ur Leukocyte Esterase 3+ H (Negative) Urine RBC 0-5 (0-5) /hpf Urine WBC 75-100 H (0-5) /hpf Ur Epithelial Cells 10-20 H (0-5) /hpf Ur Squamous Epith Cells 5-10 H (0-5) /hpf Ur Renal Epithelial Cell 0-5 (0-5) /hpf Amorphous Sediment Many H (NOT SEEN) /hpf Urine Bacteria Many H (FEW) /hpf Urine Mucus Not seen (FEW) /hpf MRSA (PCR) 05/16/18 05/16/18 05/16/18 Range/Units 07:28 07:28 12:00 WBC (3.98-10.04) K/mm3 RBC (3.98-5.22) M/mm3 Hgb (11.2-15.7) gm/L Hct (34.1-44.9) % MCV (79.4-94.8) fl MCH (25.6-32.2) pg MCHC (32.2-35.5) g/dl RDW Std Deviation (36.4-46.3) fL Plt Count (182-369) K/mm3 MPV (9.4-12.3) fl Neutrophils % (Manual) (40-60) % Band Neutrophils % (0-10) % Lymphocytes % (Manual) (20-40) % Atypical Lymphs % % Monocytes % (Manual) (2-10) % Eosinophils % (Manual) (0.7-5.8) % Basophils % (Manual) (0.1-1.2) Blast Cells % Nucleated RBCs % Platelet Estimate Polychromasia Anisocytosis Tear Drop Cells RBC Morph Comment Puncture Site ABG pH (7.35-7.45) ABG pCO2 (35.0-45.0) mmHg ABG pO2 (80.0-100.0) mmHg ABG HCO3 (22.0-26.0) meq/L ABG O2 Saturation (96.0-97.0) % ABG Base Excess (-2-2.0) Danny Test A-a Gradient mmHg PEEP Sodium 133 L (136-145) mEq/L Potassium 5.0 (3.5-5.1) mEq/L Chloride 98 (98-107) mEq/L Carbon Dioxide 20 L (21-32) mEq/L Anion Gap 20.0 H (5-15) BUN 29 H (7-18) mg/dL Creatinine 1.3 H (0.55-1.02) mg/dL Est Cr Clr Drug Dosing TNP Estimated GFR (MDRD) 43 (>60) mL/min BUN/Creatinine Ratio 22.3 H (14-18) Glucose 98 (74-106) mg/dL Lactic Acid 6.2 H (0.4-2.0) mmol/L Calcium 10.4 H (8.5-10.1) mg/dL Magnesium 1.9 (1.8-2.4) mg/dl Total Bilirubin 0.6 (0.2-1.0) mg/dL AST 66 H (15-37) U/L ALT 101 H (14-59) U/L Alkaline Phosphatase 147 H (46-116) U/L Total Protein 8.3 H (6.4-8.2) g/dl Albumin 1.2 L (3.4-5.0) g/dl Globulin 7.1 gm/dL Albumin/Globulin Ratio 0.2 L (1-2) Urine Color (Yellow) Urine Appearance (Clear) Urine pH (5.0-8.0) Ur Specific [employer] [place] (1.005-1.030) Urine Protein (Negative) Urine Glucose (UA) (Negative) Urine Ketones (Negative) Urine Occult Blood (Negative) Urine Nitrite (Negative) Urine Bilirubin (Negative) Urine Urobilinogen (0.2-1.0) Ur Leukocyte Esterase (Negative) Urine RBC (0-5) /hpf Urine WBC (0-5) /hpf Ur Epithelial Cells (0-5) /hpf Ur Squamous Epith Cells (0-5) /hpf Ur Renal Epithelial Cell (0-5) /hpf Amorphous Sediment (NOT SEEN) /hpf Urine Bacteria (FEW) /hpf Urine Mucus (FEW) /hpf MRSA (PCR) Negative 05/16/18 Range/Units 13:30 WBC (3.98-10.04) K/mm3 RBC (3.98-5.22) M/mm3 Hgb (11.2-15.7) gm/L Hct (34.1-44.9) % MCV (79.4-94.8) fl MCH (25.6-32.2) pg MCHC (32.2-35.5) g/dl RDW Std Deviation (36.4-46.3) fL Plt Count (182-369) K/mm3 MPV (9.4-12.3) fl Neutrophils % (Manual) (40-60) % Band Neutrophils % (0-10) % Lymphocytes % (Manual) (20-40) % Atypical Lymphs % % Monocytes % (Manual) (2-10) % Eosinophils % (Manual) (0.7-5.8) % Basophils % (Manual) (0.1-1.2) Blast Cells % Nucleated RBCs % Platelet Estimate Polychromasia Anisocytosis Tear Drop Cells RBC Morph Comment Puncture Site ABG pH (7.35-7.45) ABG pCO2 (35.0-45.0) mmHg ABG pO2 (80.0-100.0) mmHg ABG HCO3 (22.0-26.0) meq/L ABG O2 Saturation (96.0-97.0) % ABG Base Excess (-2-2.0) Danny Test A-a Gradient mmHg PEEP Sodium (136-145) mEq/L Potassium (3.5-5.1) mEq/L Chloride (98-107) mEq/L Carbon Dioxide (21-32) mEq/L Anion Gap (5-15) BUN (7-18) mg/dL Creatinine (0.55-1.02) mg/dL Est Cr Clr Drug Dosing Estimated GFR (MDRD) (>60) mL/min BUN/Creatinine Ratio (14-18) Glucose (74-106) mg/dL Lactic Acid 5.3 H (0.4-2.0) mmol/L Calcium (8.5-10.1) mg/dL Magnesium (1.8-2.4) mg/dl Total Bilirubin (0.2-1.0) mg/dL AST (15-37) U/L ALT (14-59) U/L Alkaline Phosphatase (46-116) U/L Total Protein (6.4-8.2) g/dl Albumin (3.4-5.0) g/dl Globulin gm/dL Albumin/Globulin Ratio (1-2) Urine Color (Yellow) Urine Appearance (Clear) Urine pH (5.0-8.0) Ur Specific [employer] (1.005-1.030) Urine Protein (Negative) Urine Glucose (UA) (Negative) Urine Ketones (Negative) Urine Occult Blood (Negative) Urine Nitrite (Negative) Urine Bilirubin (Negative) Urine Urobilinogen (0.2-1.0) Ur Leukocyte Esterase (Negative) Urine RBC (0-5) /hpf Urine WBC (0-5) /hpf Ur Epithelial Cells (0-5) /hpf Ur Squamous Epith Cells (0-5) /hpf Ur Renal Epithelial Cell (0-5) /hpf Amorphous Sediment (NOT SEEN) /hpf Urine Bacteria (FEW) /hpf Urine Mucus (FEW) /hpf MRSA (PCR) Result Diagrams: 05/16/18 07:28 05/16/18 07:28 Kyle Results Last 24 hrs: Microbiology 05/16/18 07:02 Influenza Type A Antigen Screen - Final Nasopharyngeal Swab NEGATIVE INFLUENZA A VIRUS AG Influenza Type B Antigen Screen - Final NEGATIVE INFLUENZA B VIRUS AG EKG INTERPRETATION EKG Date: 05/16/18 Time: 06:45 Rhythm: Other (Sinus Tachycardia) Rate (Beats/Min): 166 [place]: Normal P-Wave: Present QRS: Normal ST-T: Normal QT: Normal Comparison: No Change Problem List Initiated/Reviewed/Updated: Yes Orders Last 24hrs: Active Orders 24 hr Category Date Time Status Admission Status [Patient Status] [ADT] Routine ADT 05/16/18 09:40 Active Insert [place] Catheter [Insert Urinary Catheter] [OM.PC] Care 05/16/18 07:05 Ordered Stat CULTURE BLOOD [BC] Stat Lab 05/16/18 07:15 Received CULTURE BLOOD [BC] Stat Lab 05/16/18 07:28 Received CULTURE URINE [RM] Stat Lab 05/16/18 06:57 Received REFLEX LACTIC ACID YES OR NO [CHEM] Routine Lab 05/16/18 14:14 Received Acetaminophen [Tylenol] Med 05/16/18 16:19 Ordered 650 mg GTUBE Q4H PRN Acetaminophen/oxyCODONE [Percocet 325-5 MG] Med 05/16/18 16:19 Ordered 1 tab PO Q4H PRN Atropine 1% [Atropine 1% Ophth Soln] Med 05/16/18 16:19 Ordered 2 drop EYEBOTH Q4HR PRN Cholecalciferol (Vitamin D3) [Vitamin D3] Med 05/17/18 09:00 Ordered 2,000 unit GTUBE DAILY Dextrose 5%-0.9% NaCl [Dextrose 5%-Normal Saline] 1,000 Med 05/16/18 09:30 Active ml IV ASDIRECTED Docusate Sodium/Sennosides [Senna Plus] Med 05/16/18 21:00 Ordered 2 each GTUBE BID FA/Lycopene/Lut/MV,Ca,Iron,Min Med 05/16/18 21:00 Ordered 1 tab GTUBE BEDTIME FLUoxetine [PROzac] Med 05/17/18 09:00 Ordered 10 mg GTUBE DAILY LORazepam [Ativan] Med 05/17/18 09:00 Ordered 0.25 mg GTUBE DAILY Lactose-Reduced Food/Fiber [Jevity 1.2 Ugo Liquid] Med 05/16/18 18:00 Ordered 260 ml GTUBE 5XDAY Lactulose Med 05/16/18 16:19 Ordered 15 ml GTUBE DAILY PRN Magnesium Oxide [Magnesium] Med 05/16/18 21:00 Ordered 400 mg GTUBE BID Morphine [Morphine 10 MG/0.5 ML Oral Syringe] Med 05/16/18 16:19 Ordered 2 mg .XX Q2HR PRN Nystatin Med 05/16/18 21:00 Ordered 15 gm TP BID Ondansetron Med 05/16/18 16:19 Ordered 8 mg GTUBE Q6H PRN Potassium Chloride [Potassium Chloride Solution] Med 05/16/18 21:00 Ordered 20 meq PO BID Water [Water] Med 05/16/18 21:00 Ordered 100 ml GTUBE TID levETIRAcetam Med 05/16/18 21:00 Ordered 10 ml GTUBE BID tiZANidine HCl [Zanaflex] Med 05/16/18 21:00 Ordered 2 mg GTUBE TID Blood Culture x2 Reflex Set [OM.PC] Stat Oth 05/16/18 06:30 Ordered Resuscitation Status Routine Resus Stat 05/16/18 15:16 Ordered Medication Orders Dextrose/Sodium Chloride (Dextrose 5%-Normal Saline) 1,000 mls @ 75 mls/hr IV [facility]ED [facility] Last Admin: 05/16/18 09:44 Dose: 75 mls/hr Assessment/Plan Comment:: Assessment/Plan: Acute: Sepsis w/ Hypotension - 2/2 UTI due to neurogenic bladder from MS - Risk Factor: Advanced MS, AMS, Recurrent UTI and Aspiration Syndrome 2/2 Dysphagia - Fever of 39 C; WBC of 14.22, HR of 119-128, BP of 92/34, 100/48, 101/58 mmHg, RR 24-33 - LA 6.2 --> 5.3 --> 5.6; received 1L of NS in ED; will add 2L NS and then start 1L NS at 125 cc/hr - Procalcitonin and Cortisol level - Solucortef 100 mg IV Q6H once cortisol level is drawn - High pseudomonal risk due to recent multiple antibiotic use: Azithromycin -, Cipro 05/10-, and Bactrim 05/13- - Triple antibiotic regimen: IV Levaquin, Zosyn and Vancomycin UTI - Carries Multiple Hx/o UTIs - 2/2 Urinary retention from neurogenic bladder - UA is pos for infection w/ 3+ LE - IV Antibiotic for GN coverage Anemia - Acute on Chronic - Hgb of 8.5 and Hct 29; baseline is - (February 2018) - Stool occult study - Iron Panel in AM [facility] Life [facility] - Spoke to her mother; not ready for it Chronic: Dysphagia Urinary Retention Back Pain OA Spasms Osteoporosis CVA/TIA MS Anemia Seizure Disorder Hx/o DVT/VTE Alzheimer's Disease DM2 Anxiety Depression Plan: Admit to [facility] w/ Tele Routine AM Labs Sepsis Protocol (my own-triple regimen) Resume Home Meds except Bactrim Aspiration/Seizure/Fall Precaution DVT/GI PPx: Lovenox sub Q SW/CM for D/c planning DNR/DNI/Comfort Measures
[2018-05-16] MEDS ORDERED: Sodium Chloride 0.9% 2,000 ML IV ONE (16:23)
[2018-05-16] MEDS ORDERED: Piperacillin/Tazobactam 4.5 GM in Sodium Chloride 0.9% 100 ML IV SCH (16:30)
[2018-05-16] MEDS ORDERED: Levofloxacin/Dextrose 5%-Water 500 MG in Premix Bag 1 BAG IV SCH (16:30)
[2018-05-16] MEDS ORDERED: Vancomycin 500 MG SDV IV SCH (16:30)
--- NOTE | 2018-05-16 16:37 | PCM.SN ---
- Free Text/Narrative Note: Briefly seen patient at bedside. No family members present. She is alert/awake and comfortable. She is able to talk but non sensible. She is able to move her left hand . Her right seems to be contracted. She has poor vision on her right eye but her left is good. Unclear if she is comfort measures at this point.
[2018-05-16] MEDS ORDERED: Sodium Chloride 0.9% 1,000 ML ONE (17:31)
[2018-05-16] MEDS: Morphine 10 MG/0.5 ML Oral Syringe PRN (17:36)
[2018-05-16] MEDS ORDERED: LORazepam 2 MG/ML SDV IVPUSH PRN (19:30)
[2018-05-16] MEDS: Metoprolol Tartrate 5 MG/5 ML SDV IVPUSH PRN (19:49)
[2018-05-16] MEDS: Piperacillin/Tazobactam 4.5 GM in Sodium Chloride 0.9% 100 ML IV SCH (20:43)
[2018-05-16] MEDS: Sodium Chloride 0.9% 1,000 ML IV SCH (20:44)
[2018-05-16] MEDS: Levofloxacin/Dextrose 5%-Water 500 MG in Premix Bag 1 BAG IV SCH (20:48)
[2018-05-16] MEDS: Acetaminophen/oxyCODONE 325-5 MG Tab PO PRN (20:48)
[2018-05-16] MEDS: Magnesium Oxide 400 MG Tab GTUBE SCH (20:48)
[2018-05-16] MEDS: Multivitamins,Therapeutic Tab SCH (20:48)
[2018-05-16] MEDS: tiZANidine 4 MG Tab GTUBE SCH (20:51)
[2018-05-16] MEDS: levETIRAcetam Soln 500 MG/5 ML Cup GTUBE SCH (20:53)
[2018-05-16] MEDS: Nystatin Crm 30 GM Tube TOP SCH (20:53)
[2018-05-16] MEDS ORDERED: [UNRECOGNIZED DRUG - OTHER] GTUBE SCH (21:00)
[2018-05-16] MEDS ORDERED: WATER GTUBE SCH (21:00)
[2018-05-16] MEDS ORDERED: Potassium Chloride 10% 20 MEQ/15 ML Soln 15 ML UD Cup PO SCH (21:00)
[2018-05-16] MEDS ORDERED: Hydrocortisone Sodium Succinate 100 MG/2 ML SDV IVPUSH SCH (23:00)
[2018-05-16] MEDS ORDERED: Enoxaparin 30 MG/0.3 ML Syringe SUBCUT SCH (23:15)
[2018-05-16] MEDS ORDERED: Enoxaparin 40 MG/0.4 ML Syringe SUBCUT SCH (23:30)
[2018-05-17] MEDS: Morphine 10 MG/0.5 ML Oral Syringe PRN (00:46)
[2018-05-17] MEDS ORDERED: Norepinephrine 4 MG in Dextrose 5% in Water 246 ML IV SCH ×2 (01:30)
[2018-05-17] MEDS: Sodium Chloride 0.9% 1,000 ML IV SCH ×3 (03:58→19:49)
[2018-05-17] MEDS: Piperacillin/Tazobactam 4.5 GM in Sodium Chloride 0.9% 100 ML IV SCH ×3 (04:23→21:21)
[2018-05-17] MEDS: Hydrocortisone Sodium Succinate 100 MG/2 ML SDV IVPUSH SCH ×3 (05:41→18:46)
--- NOTE | 2018-05-17 07:41 | PCM.PN ---
- General Info Date of Service: 05/17/18 Admission Dx/Problem (Free Text): Admission Diagnosis/Problem Admission Diagnosis/Problem Urosepsis Subjective Update: Follow Up Functional Status: Reports: Pain Controlled. Denies: Tolerating Diet, Ambulating, Urinating - Review of Systems General: Reports: Other (bed-bound and not able to verbalize her needs or concerns as her baseline). Denies: Fever, Chills HEENT: Reports: No Symptoms Pulmonary: Denies: Shortness of Breath Gastrointestinal: Denies: Abdominal Pain, Nausea, Vomiting Genitourinary: Reports: No Symptoms Musculoskeletal: Reports: No Symptoms Skin: Denies: Cyanosis, Mottled Neurological: Reports: Difficulty Walking, Weakness, Gait Disturbance Psychiatric: Reports: No Symptoms - Patient Data Vitals - Most Recent: Last Vital Signs Temp 37.0 C 05/17/18 04:00 Pulse 105 H 05/17/18 07:00 Resp 26 H 05/17/18 04:00 BP 83/72 L 05/17/18 07:00 Pulse Ox 93 L 05/17/18 04:00 Weight - Most Recent: 70.307 kg I&O - Last 24 Hours: Intake & Output 05/16/18 05/17/18 05/17/18 22:59 06:59 14:59 Intake Total 1030 1695 Balance 1030 1695 Lab Results Last 24 Hours: Laboratory Results - last 24 hr 05/16/18 05/16/18 05/16/18 Range/Units 07:14 07:28 07:28 WBC 14.22 H (3.98-10.04) K/mm3 RBC 3.55 L (3.98-5.22) M/mm3 Hgb 8.5 L (11.2-15.7) gm/L Hct 29.1 L (34.1-44.9) % MCV 82.0 (79.4-94.8) fl MCH 23.9 L (25.6-32.2) pg MCHC 29.2 L (32.2-35.5) g/dl RDW Std Deviation 51.9 H (36.4-46.3) fL Plt Count 833 H (182-369) K/mm3 MPV 9.5 (9.4-12.3) fl Neutrophils % (Manual) 68 H (40-60) % Band Neutrophils % 8 (0-10) % Lymphocytes % (Manual) 23 (20-40) % Atypical Lymphs % 0 % Monocytes % (Manual) 1 L (2-10) % Eosinophils % (Manual) 0 L (0.7-5.8) % Basophils % (Manual) 0 L (0.1-1.2) Blast Cells % 0 Nucleated RBCs 1.0 % Platelet Estimate Marked inc Polychromasia 1+ slight Anisocytosis Sl Tear Drop Cells Few RBC Morph Comment Abn PEEP Not Reportable Sodium 133 L (136-145) mEq/L Potassium 5.0 (3.5-5.1) mEq/L Chloride 98 (98-107) mEq/L Carbon Dioxide 20 L (21-32) mEq/L Anion Gap 20.0 H (5-15) BUN 29 H (7-18) mg/dL Creatinine 1.3 H (0.55-1.02) mg/dL Est Cr Clr Drug Dosing TNP Estimated GFR (MDRD) 43 (>60) mL/min BUN/Creatinine Ratio 22.3 H (14-18) Glucose 98 (74-106) mg/dL Lactic Acid (0.4-2.0) mmol/L Calcium 10.4 H (8.5-10.1) mg/dL Magnesium 1.9 (1.8-2.4) mg/dl Total Bilirubin 0.6 (0.2-1.0) mg/dL AST 66 H (15-37) U/L ALT 101 H (14-59) U/L Alkaline Phosphatase 147 H (46-116) U/L Total Protein 8.3 H (6.4-8.2) g/dl Albumin 1.2 L (3.4-5.0) g/dl Globulin 7.1 gm/dL Albumin/Globulin Ratio 0.2 L (1-2) MRSA (PCR) 05/16/18 05/16/18 05/16/18 Range/Units 07:28 12:00 13:30 WBC (3.98-10.04) K/mm3 RBC (3.98-5.22) M/mm3 Hgb (11.2-15.7) gm/L Hct (34.1-44.9) % MCV (79.4-94.8) fl MCH (25.6-32.2) pg MCHC (32.2-35.5) g/dl RDW Std Deviation (36.4-46.3) fL Plt Count (182-369) K/mm3 MPV (9.4-12.3) fl Neutrophils % (Manual) (40-60) % Band Neutrophils % (0-10) % Lymphocytes % (Manual) (20-40) % Atypical Lymphs % % Monocytes % (Manual) (2-10) % Eosinophils % (Manual) (0.7-5.8) % Basophils % (Manual) (0.1-1.2) Blast Cells % Nucleated RBCs % Platelet Estimate Polychromasia Anisocytosis Tear Drop Cells RBC Morph Comment PEEP Sodium (136-145) mEq/L Potassium (3.5-5.1) mEq/L Chloride (98-107) mEq/L Carbon Dioxide (21-32) mEq/L Anion Gap (5-15) BUN (7-18) mg/dL Creatinine (0.55-1.02) mg/dL Est Cr Clr Drug Dosing Estimated GFR (MDRD) (>60) mL/min BUN/Creatinine Ratio (14-18) Glucose (74-106) mg/dL Lactic Acid 6.2 H 5.3 H (0.4-2.0) mmol/L Calcium (8.5-10.1) mg/dL Magnesium (1.8-2.4) mg/dl Total Bilirubin (0.2-1.0) mg/dL AST (15-37) U/L ALT (14-59) U/L Alkaline Phosphatase (46-116) U/L Total Protein (6.4-8.2) g/dl Albumin (3.4-5.0) g/dl Globulin gm/dL Albumin/Globulin Ratio (1-2) MRSA (PCR) Negative 05/16/18 Range/Units 19:18 WBC (3.98-10.04) K/mm3 RBC (3.98-5.22) M/mm3 Hgb (11.2-15.7) gm/L Hct (34.1-44.9) % MCV (79.4-94.8) fl MCH (25.6-32.2) pg MCHC (32.2-35.5) g/dl RDW Std Deviation (36.4-46.3) fL Plt Count (182-369) K/mm3 MPV (9.4-12.3) fl Neutrophils % (Manual) (40-60) % Band Neutrophils % (0-10) % Lymphocytes % (Manual) (20-40) % Atypical Lymphs % % Monocytes % (Manual) (2-10) % Eosinophils % (Manual) (0.7-5.8) % Basophils % (Manual) (0.1-1.2) Blast Cells % Nucleated RBCs % Platelet Estimate Polychromasia Anisocytosis Tear Drop Cells RBC Morph Comment PEEP Sodium (136-145) mEq/L Potassium (3.5-5.1) mEq/L Chloride (98-107) mEq/L Carbon Dioxide (21-32) mEq/L Anion Gap (5-15) BUN (7-18) mg/dL Creatinine (0.55-1.02) mg/dL Est Cr Clr Drug Dosing Estimated GFR (MDRD) (>60) mL/min BUN/Creatinine Ratio (14-18) Glucose (74-106) mg/dL Lactic Acid 5.6 H (0.4-2.0) mmol/L Calcium (8.5-10.1) mg/dL Magnesium (1.8-2.4) mg/dl Total Bilirubin (0.2-1.0) mg/dL AST (15-37) U/L ALT (14-59) U/L Alkaline Phosphatase (46-116) U/L Total Protein (6.4-8.2) g/dl Albumin (3.4-5.0) g/dl Globulin gm/dL Albumin/Globulin Ratio (1-2) MRSA (PCR) Peter Results Last 24 Hours: Microbiology 05/16/18 07:15 Aerobic Blood Culture - Preliminary Blood - Venous - Lab Draw NO GROWTH AFTER 1 DAY Anaerobic Blood Culture - Preliminary NO GROWTH AFTER 1 DAY 05/16/18 07:28 Aerobic Blood Culture - Preliminary Blood - Venous NO GROWTH AFTER 1 DAY Anaerobic Blood Culture - Preliminary NO GROWTH AFTER 1 DAY 05/16/18 07:02 Influenza Type A Antigen Screen - Final Nasopharyngeal Swab NEGATIVE INFLUENZA A VIRUS AG Influenza Type B Antigen Screen - Final NEGATIVE INFLUENZA B VIRUS AG Med Orders - Current: Current Medications Acetaminophen (Tylenol) 650 mg GTUBE Q4H PRN PRN Reason: Pain/Fever Last Admin: 05/17/18 00:46 Dose: 650 mg Atropine Sulfate (Atropine 1% Oph Soln) 0 ml SL Q4H PRN PRN Reason: extra secretions Cholecalciferol (Vitamin D3) 2,000 units GTUBE DAILY [facility] Enoxaparin Sodium (Lovenox) 40 mg SUBCUT DAILY [facility] Famotidine (Pepcid) 20 mg PO BID [facility] Fluoxetine HCl (Prozac) 10 mg GTUBE DAILY [facility] Hydralazine HCl (Apresoline) 20 mg IVPUSH Q4H PRN PRN Reason: Hypertension Hydrocortisone Sodium Succinate (Solu-Cortef) 100 mg IVPUSH Q6H [facility] Last Admin: 05/17/18 05:41 Dose: 100 mg Sodium Chloride (Normal Saline) 1,000 mls @ 125 mls/hr IV ASDIRECTED [facility] Last Admin: 05/17/18 03:58 Dose: 125 mls/hr Levofloxacin/Dextrose 500 mg/ (Premix) 100 mls @ 100 mls/hr IV Q24H [facility] Last Admin: 05/16/18 20:48 Dose: 100 mls/hr Piperacillin Sod/Tazobactam (Sod 4.5 gm/ Sodium Chloride) 100 mls @ 25 mls/hr IV Q8H [facility] Last Admin: 05/17/18 04:23 Dose: 25 mls/hr Vancomycin HCl 1 gm/ Sodium (Chloride) 250 mls @ 250 mls/hr IV Q12H [facility] Last Admin: 05/17/18 00:36 Dose: 250 mls/hr Norepinephrine Bitartrate 4 mg (/ Dextrose/Water) 250 mls @ 7.5 mls/hr IV TITRATE [facility]; Protocol Last Titration: 05/17/18 06:50 Dose: 6 mcg/min, 22.5 mls/hr Lactulose (Cephulac) 10 gm GTUBE DAILY PRN PRN Reason: Other Levetiracetam (Keppra) 1,000 mg GTUBE BID [facility] Last Admin: 05/16/18 20:53 Dose: 1,000 mg Lorazepam (Ativan) 0.25 mg GTUBE DAILY [facility] Lorazepam (Ativan) 2 mg IVPUSH Q4H PRN PRN Reason: Seizures Magnesium Oxide (Magnesium Oxide) 400 mg GTUBE BID [facility] Last Admin: 05/16/18 20:48 Dose: 400 mg Magnesium Sulfate (Pharmacy To Dose - Magnesium Replacement) 1 dose .XX ASDIRECTED [facility] Metoprolol Tartrate (Lopressor) 5 mg IVPUSH Q4H PRN PRN Reason: Tachycardia Last Admin: 05/16/18 19:49 Dose: 5 mg Midodrine (Midodrine) 5 mg PO TIDAC [facility] Stop: 05/18/18 07:01 Morphine Sulfate (Morphine 10 Mg/0.5 Ml Oral Syringe) 2 mg .XX Q2HR PRN PRN Reason: Pain Last Admin: 05/16/18 17:36 Dose: 2 mg Multivitamins (Thera) 1 each .XX BEDTIME [facility] Last Admin: 05/16/18 20:48 Dose: 1 each Nystatin (Nystatin Crm) 0 gm TOP BID [facility] Last Admin: 05/16/18 20:53 Dose: 1 applic Ondansetron HCl (Zofran Odt) 8 mg GTUBE Q6H PRN PRN Reason: Nausea Oxycodone/Acetaminophen (Percocet 325-5 Mg) 1 tab PO Q4H PRN PRN Reason: Pain (moderate 4-6) Last Admin: 05/16/18 20:48 Dose: 1 tab Potassium Chloride (Potassium Chloride Solution) 20 meq PO BID [facility] Last Admin: 05/16/18 20:52 Dose: 20 meq Potassium Chloride (Pharmacy To Dose - Potassium Replacement) 1 dose .XX ASDIRECTED [facility] Saccharomyces Boulardii (Florastor) 250 mg PO TID [facility] Senna/Docusate Sodium (Senna Plus) 2 tab GTUBE BID [facility] Last Admin: 05/16/18 20:48 Dose: 2 tab Tizanidine HCl (Zanaflex) 2 mg GTUBE TID [facility] Last Admin: 05/16/18 20:51 Dose: 2 mg Discontinued Medications Enoxaparin Sodium (Lovenox) 40 mg SUBCUT BEDTIME [facility] Last Admin: 05/17/18 00:14 Dose: Not Given Hydrocortisone Sodium Succinate (Solu-Cortef) 100 mg IVPUSH Q6H [facility] Last Admin: 05/17/18 00:14 Dose: Not Given Piperacillin Sod/Tazobactam (Sod 4.5 gm/ Sodium Chloride) 100 mls @ 25 mls/hr IV ONETIME STA Stop: 05/16/18 10:34 Last Admin: 05/16/18 07:18 Dose: 25 mls/hr Sodium Chloride (Normal Saline) 1,000 mls @ 999 mls/hr IV ONETIME ONE Stop: 05/16/18 07:35 Last Admin: 05/16/18 07:18 Dose: 999 mls/hr Dextrose/Sodium Chloride (Dextrose 5%-Normal Saline) 1,000 mls @ 75 mls/hr IV ASDIRECTED [facility] Last Admin: 05/16/18 09:44 Dose: 75 mls/hr Sodium Chloride (Normal Saline) 2,000 mls @ 999 mls/hr IV ONETIME ONE Stop: 05/16/18 18:23 Last Admin: 05/16/18 17:16 Dose: 999 mls/hr Sodium Chloride (Normal Saline) Confirm Administered Dose 1,000 mls @ as directed .ROUTE .STK-MED ONE Stop: 05/16/18 17:32 Last Admin: 05/16/18 17:40 Dose: Not Given Non-Formulary Medication (Lactose-Reduced Food/Fiber [Jevity 1.2 Ugo Liquid]) 260 ml GTUBE 5XDAY [facility]HA[facility] Non-Formulary Medication (Water [Water]) 100 ml GTUBE TID [facility] - Exam Quality Assessment: Supplemental Oxygen (0.5L) General: No Acute Distress, Other (awake) HEENT: Pupils Equal, Pupils Reactive, Mucous Membr. Moist/[place] Neck: Supple, No Thyromegaly Lungs: Normal Respiratory Effort, Decreased Breath Sounds, Crackles Cardiovascular: Regular Rhythm, Tachycardia GI/Abdominal Exam: Normal Bowel Sounds, Soft, Non-Tender, No Organomegaly, No Distention, No Abnormal Bruit, Other (G-tube) (Female) Exam: Deferred Back Exam: Other (deferred) Extremities: Non-Tender, Normal Capillary Refill, Pedal Edema, Limited Range of Motion Peripheral Pulses: 2+: Dorsalis Pedis (L), Dorsalis Pedis (R) Skin: Warm, Dry, Intact Neurological: Other (deferred: she is unable to follow simple commands) Psy/Mental Status: Other (awake). No: Normal Affect - Problem List Review Problem List Initiated/Reviewed/Updated: Yes - My Orders Last 24 Hours: My Active Orders 05/16/18 15:16 Resuscitation Status Routine 05/16/18 16:19 Acetaminophen [Tylenol] 650 mg GTUBE Q4H PRN Acetaminophen/oxyCODONE [Percocet 325-5 MG] 1 tab PO Q4H PRN Atropine 1% [Atropine 1% Ophth Soln] 0 ml SL Q4H PRN Lactulose [Cephulac] 10 gm GTUBE DAILY PRN Morphine [Morphine 10 MG/0.5 ML Oral Syringe] 2 mg .XX Q2HR PRN Ondansetron [Zofran ODT] 8 mg GTUBE Q6H PRN 05/16/18 16:22 PROCALCITONIN [REF] Stat 05/16/18 17:52 Antiembolic Devices [RC] BID SCD [Sequential Compression Device] [OM.PC] Routine 05/16/18 19:30 LORazepam [Ativan] 2 mg IVPUSH Q4H PRN Metoprolol Tartrate [Lopressor] 5 mg IVPUSH Q4H PRN Pharmacy to Dose - Magnesium R [Pharmacy to Dose - Magnesium Replacement] 1 dose .XX ASDIRECTED Pharmacy to Dose - Potassium R [Pharmacy to Dose - Potassium Replacement] 1 dose .XX ASDIRECTED hydrALAZINE [Apresoline] 20 mg IVPUSH Q4H PRN 05/16/18 19:45 Sodium Chloride 0.9% [Normal Saline] 1,000 ml IV ASDIRECTED 05/16/18 20:00 Levofloxacin/Dextrose 5%-Water [Levaquin in D5W 500 MG/100 ML] 500 mg Premix Bag 1 bag IV Q24H 05/16/18 20:43 Enteral Feedings [RC] 06,10,14,18,22 05/16/18 20:59 Communication Order [RC] DAILY 05/16/18 21:00 Docusate Sodium/Sennosides [Senna Plus] 2 tab GTUBE BID Magnesium Oxide 400 mg GTUBE BID Multivitamins,Therapeutic [Thera] 1 each .XX BEDTIME Nystatin [Nystatin Crm] 0 gm TOP BID Piperacillin/Tazobactam [Piperacil-Tazobact] 4.5 gm Sodium Chloride 0.9% [ Normal Saline] 100 ml IV Q8H Potassium Chloride [Potassium Chloride Solution] 20 meq PO BID levETIRAcetam [Keppra] 1,000 mg GTUBE BID tiZANidine [Zanaflex] 2 mg GTUBE TID 05/16/18 22:55 OCCULT BLOOD SCREEN [OP] Routine 05/16/18 22:58 CORTISOL [REF] Stat 05/17/18 01:00 Vancomycin [Vancocin] 1 gm Sodium Chloride 0.9% [Normal Saline] 250 ml IV Q12H 05/17/18 01:26 Patient Status [ADT] Routine 05/17/18 01:30 Norepinephrine [Levophed] 4 mg Dextrose 5% in Water 246 ml IV TITRATE 05/17/18 06:00 Hydrocortisone Sod Succinate [Solu-CORTEF] 100 mg IVPUSH Q6H 05/17/18 06:39 Chest 1V Frontal [CR] Routine 05/17/18 07:00 Midodrine 5 mg PO TIDAC 05/17/18 07:09 FE, TIBC, TRANSFERRIN, FE SAT [CHEM] AM LACTIC ACID [CHEM] AM 05/17/18 09:00 Cholecalciferol (Vitamin D3) [Vitamin D3] 2,000 units GTUBE DAILY Enoxaparin [Lovenox] 40 mg SUBCUT DAILY FLUoxetine [PROzac] 10 mg GTUBE DAILY Famotidine [Pepcid] 20 mg PO BID LORazepam [Ativan] 0.25 mg GTUBE DAILY Saccharomyces Boulardii [Florastor] 250 mg PO TID - Plan Plan:: Assessment/Plan: Acute: Bacteremia w/ Hypotension - 2/2 UTI due to neurogenic bladder from MS - Carries a hx/o Multiple Urine and Blood Infections in the past - Risk Factor: Advanced MS, AMS, Recurrent UTI and Aspiration Syndrome 2/2 Dysphagia - Fever of 39 C; WBC of 14.22, HR of 119-128, BP of 92/34, 100/48, 101/58 mmHg, RR 24-33 - LA 6.2 --> 5.3 --> 5.6--> 3.1; received a total of 3L of NS overnight plus 1L NS at 125 cc/hr but remained hypotensive overnight - Procalcitonin 5.44 (high risk progression to severe sepsis) - 1 set of bottle positive - Continue Solucortef 100 mg IV Q6H - High pseudomonal risk due to recent multiple antibiotic use: Azithromycin -, Cipro 05/10-, and Bactrim 05/13- - Continue Triple antibiotic regimen: IV Levaquin, Zosyn and Vancomycin UTI - 2/2 Urinary retention from neurogenic bladder - UA is pos for infection w/ 3+ LE - IV Antibiotic for GPC coverage Atelectasis/Increased Density Right Lung Base - Carries a hx/o Dysphagia - Cannot r/o Aspiration Syndrome - Continue IV Zosyn and Levaquin Anemia - Acute on Chronic - Hgb of 8.5 and Hct 29; baseline is 11-12 (February 2018) - Stool occult study - Iron Panel: shows Anemia of Chronic Disease End of Life Care - Again we spoke to mother and sister at bedside; they understand "comfort measures" but they want treatment of Violette's infection Chronic: Dysphagia Urinary Retention Back Pain OA Spasms Osteoporosis CVA/TIA MS Anemia Seizure Disorder Hx/o DVT/VTE Alzheimer's Disease DM2 Anxiety Depression Plan: She looks clinically better but still hemodynamically unstable Routine AM Labs Sepsis Protocol (my own-triple regimen) Resume Home Meds except Bactrim Aspiration/Seizure/Fall Precaution DVT/GI PPx: Lovenox sub Q SW/CM for D/c planning DNR/DNI/Comfort Measures
[2018-05-17] MEDS: levETIRAcetam Soln 500 MG/5 ML Cup GTUBE SCH ×2 (08:29→21:17)
[2018-05-17] MEDS: Famotidine 20 MG Tab PO SCH ×2 (08:30→21:17)
[2018-05-17] MEDS: Cholecalciferol (Vitamin D3) 1,000 Unit Tab GTUBE SCH (08:30)
[2018-05-17] MEDS: Magnesium Oxide 400 MG Tab GTUBE SCH ×2 (08:30→21:18)
[2018-05-17] MEDS: Saccharomyces Boulardii (Probiotic) 250 MG Cap PO SCH ×3 (08:30→21:18)
[2018-05-17] MEDS: Midodrine 5 MG Tab PO SCH ×3 (08:30→16:33)
[2018-05-17] MEDS: LORazepam 0.5 MG Tab GTUBE SCH (08:31)
[2018-05-17] MEDS: tiZANidine 4 MG Tab GTUBE SCH ×3 (08:32→21:18)
[2018-05-17] MEDS: FLUoxetine 10 MG Cap GTUBE SCH (08:32)
[2018-05-17] MEDS: Nystatin Crm 30 GM Tube TOP SCH ×2 (08:33→21:18)
[2018-05-17] MEDS: Enoxaparin 40 MG/0.4 ML Syringe SUBCUT SCH (08:33)
--- NOTE | 2018-05-17 08:46 | CR ---
Chest: Portable view of the chest is obtained. Comparison: Prior chest x-ray of 05/16/18. Increased density within the right base is seen. Left hemidiaphragm is also slightly silhouetted. Upper lungs are clear. Poor inspiratory study is noted. Heart size and mediastinum are within normal limits for portable technique. Bony structures are grossly intact. Impression: 1. Increased density within both lung bases. Findings most likely due to atelectasis since this is a poor inspiratory study. 2. Nothing acute is definitely seen. Diagnostic code #3
[2018-05-17] MEDS: ENTERAL NUTRITION FORMULA GTUBE SCH ×2 (10:25→11:31)
[2018-05-17] MEDS: [UNRECOGNIZED DRUG - OTHER] GTUBE SCH ×2 (10:25→11:31)
[2018-05-17] MEDS: Levofloxacin/Dextrose 5%-Water 500 MG in Premix Bag 1 BAG IV SCH (21:14)
[2018-05-17] MEDS: Multivitamins,Therapeutic Tab SCH (21:17)
[2018-05-18] MEDS: Hydrocortisone Sodium Succinate 100 MG/2 ML SDV IVPUSH SCH ×3 (00:58→12:25)
[2018-05-18] MEDS: Sodium Chloride 0.9% 1,000 ML IV SCH ×2 (03:50→22:31)
[2018-05-18] MEDS: Piperacillin/Tazobactam 4.5 GM in Sodium Chloride 0.9% 100 ML IV SCH ×3 (05:55→20:58)
[2018-05-18] MEDS: Midodrine 5 MG Tab PO SCH ×2 (06:34→18:09)
--- NOTE | 2018-05-18 07:06 | PCM.PN ---
- General Info Date of Service: 05/18/18 Admission Dx/Problem (Free Text): Admission Diagnosis/Problem Admission Diagnosis/Problem Urosepsis Subjective Update: Follow Up Functional Status: Reports: Pain Controlled, Urinating. Denies: New Symptoms - Review of Systems General: Denies: Fever, Malaise HEENT: Reports: No Symptoms Pulmonary: Denies: Shortness of Breath, Cough, Sputum Cardiovascular: Reports: Edema. Denies: Chest Pain, Palpitations Gastrointestinal: Denies: Abdominal Pain, Nausea, Vomiting Genitourinary: Reports: No Symptoms Musculoskeletal: Reports: No Symptoms Skin: Denies: Cyanosis, Diaphoresis, Dryness Neurological: Denies: Confusion Psychiatric: Denies: Depression, Agitation, Hallucinations Systems Review Comment:: No overnight issues. She was mostly awake throughout the night per night nurse. She is alert, awake and looks comfortable. She is able to answer yes or no questions by nodding or shaking her head. She can also respond by saying yes or no. She is afebrile but her WBC went up to 22K (She is on Solucortef) from 14K. Her Hgb this morning is 6.9, down from 8.5 on admission. No report of active bleeding or GI bleed. - Patient Data Vitals - Most Recent: Last Vital Signs Temp 36.7 C 05/18/18 03:58 Pulse 96 05/18/18 03:58 Resp 21 H 05/18/18 03:58 BP 108/81 05/18/18 03:58 Pulse Ox 92 L 05/18/18 03:58 Weight - Most Recent: 74.843 kg I&O - Last 24 Hours: Intake & Output 05/17/18 05/18/18 05/18/18 22:59 06:59 14:59 Intake Total 2715 2075 Balance 2715 2075 Lab Results Last 24 Hours: Laboratory Results - last 24 hr 05/16/18 05/17/18 05/17/18 Range/Units 16:22 07:09 07:09 WBC (3.98-10.04) K/mm3 RBC (3.98-5.22) M/mm3 Hgb (11.2-15.7) gm/L Hct (34.1-44.9) % MCV (79.4-94.8) fl MCH (25.6-32.2) pg MCHC (32.2-35.5) g/dl RDW Std Deviation (36.4-46.3) fL Plt Count (182-369) K/mm3 MPV (9.4-12.3) fl Neut % (Auto) (34.0-71.1) % Lymph % (Auto) (19.3-51.7) % [place] % (Auto) (4.7-12.5) % Eos % (Auto) (0.7-5.8) Baso % (Auto) (0.1-1.2) % Neut # (Auto) (1.56-6.13) K/mm3 Lymph # (Auto) (1.18-3.74) K/mm3 [place] # (Auto) (0.24-0.36) K/mm3 Eos # (Auto) (0.04-0.36) K/mm3 Baso # (Auto) (0.01-0.08) K/mm3 Sodium (136-145) mEq/L Potassium (3.5-5.1) mEq/L Chloride (98-107) mEq/L Carbon Dioxide (21-32) mEq/L Anion Gap (5-15) BUN (7-18) mg/dL Creatinine (0.55-1.02) mg/dL Est Cr Clr Drug Dosing mL/min Estimated GFR (MDRD) (>60) mL/min BUN/Creatinine Ratio (14-18) Glucose (74-106) mg/dL Lactic Acid 3.1 H (0.4-2.0) mmol/L Calcium (8.5-10.1) mg/dL Magnesium (1.8-2.4) mg/dl Iron 10 L (50-170) ug/dL TIBC 111 (100-400) ug/dL % Saturation 9 L (20-55) % Transferrin 89 L (202-364) mg/dL C-Reactive Protein (<1.0) mg/dL Procalcitonin 5.44 H (<0.10) ng/mL 05/18/18 05/18/18 Range/Units 05:20 05:20 WBC 28.62 H (3.98-10.04) K/mm3 RBC 2.88 L (3.98-5.22) M/mm3 Hgb 6.9 L* (11.2-15.7) gm/L Hct 23.9 L (34.1-44.9) % MCV 83.0 (79.4-94.8) fl MCH 24.0 L (25.6-32.2) pg MCHC 28.9 L (32.2-35.5) g/dl RDW Std Deviation 51.6 H (36.4-46.3) fL Plt Count 614 H (182-369) K/mm3 MPV 9.6 (9.4-12.3) fl Neut % (Auto) 93.1 H (34.0-71.1) % Lymph % (Auto) 5.3 L (19.3-51.7) % [place] % (Auto) 0.9 L (4.7-12.5) % Eos % (Auto) 0 L (0.7-5.8) Baso % (Auto) 0.1 (0.1-1.2) % Neut # (Auto) 26.63 H (1.56-6.13) K/mm3 Lymph # (Auto) 1.53 (1.18-3.74) K/mm3 [place] # (Auto) 0.25 (0.24-0.36) K/mm3 Eos # (Auto) 0.01 L (0.04-0.36) K/mm3 Baso # (Auto) 0.02 (0.01-0.08) K/mm3 Sodium 138 (136-145) mEq/L Potassium 3.2 L (3.5-5.1) mEq/L Chloride 106 (98-107) mEq/L Carbon Dioxide 21 (21-32) mEq/L Anion Gap 14.2 (5-15) BUN 25 H (7-18) mg/dL Creatinine 0.8 (0.55-1.02) mg/dL Est Cr Clr Drug Dosing 71.50 mL/min Estimated GFR (MDRD) > 60 (>60) mL/min BUN/Creatinine Ratio 31.3 H (14-18) Glucose 106 (74-106) mg/dL Lactic Acid (0.4-2.0) mmol/L Calcium 9.4 (8.5-10.1) mg/dL Magnesium 1.9 (1.8-2.4) mg/dl Iron (50-170) ug/dL TIBC (100-400) ug/dL % Saturation (20-55) % Transferrin (202-364) mg/dL C-Reactive Protein 29.7 H* (<1.0) mg/dL Procalcitonin (<0.10) ng/mL Peter Results Last 24 Hours: Microbiology 05/16/18 07:28 Aerobic Blood Culture - Preliminary Blood - Venous NO GROWTH AFTER 1 DAY Anaerobic Blood Culture - Preliminary Gram Positive Cocci In Clustrs 05/16/18 06:57 Urine Culture - Preliminary Urine, Catheterized Gram Positive Cocci 05/16/18 07:15 Aerobic Blood Culture - Preliminary Blood - Venous - Lab Draw NO GROWTH AFTER 1 DAY Anaerobic Blood Culture - Final Med Orders - Current: Current Medications Acetaminophen (Tylenol) 650 mg GTUBE Q4H PRN PRN Reason: Pain/Fever Last Admin: 05/17/18 00:46 Dose: 650 mg Atropine Sulfate (Atropine 1% Ophth Soln) 0 ml SL Q4H PRN PRN Reason: extra secretions Cholecalciferol (Vitamin D3) 2,000 units GTUBE DAILY [facility] Last Admin: 05/17/18 08:30 Dose: 2,000 units Enoxaparin Sodium (Lovenox) 40 mg SUBCUT DAILY [facility] Last Admin: 05/17/18 08:33 Dose: 40 mg Famotidine (Pepcid) 20 mg PO BID [facility] Last Admin: 05/17/18 21:17 Dose: 20 mg Fluoxetine HCl (Prozac) 10 mg GTUBE DAILY [facility] Last Admin: 05/17/18 08:32 Dose: 10 mg Hydralazine HCl (Apresoline) 20 mg IVPUSH Q4H PRN PRN Reason: Hypertension Hydrocortisone Sodium Succinate (Solu-Cortef) 100 mg IVPUSH Q6H [facility] Last Admin: 05/18/18 06:00 Dose: 100 mg Sodium Chloride (Normal Saline) 1,000 mls @ 125 mls/hr IV ASDIRECTED [facility] Last Admin: 05/18/18 03:50 Dose: 125 mls/hr Levofloxacin/Dextrose 500 mg/ (Premix) 100 mls @ 100 mls/hr IV Q24H [facility] Last Admin: 05/17/18 21:14 Dose: 100 mls/hr Piperacillin Sod/Tazobactam (Sod 4.5 gm/ Sodium Chloride) 100 mls @ 25 mls/hr IV Q8H [facility] Last Admin: 05/18/18 05:55 Dose: 25 mls/hr Vancomycin HCl 1 gm/ Sodium (Chloride) 250 mls @ 250 mls/hr IV Q12H [facility] Last Admin: 05/18/18 01:08 Dose: 250 mls/hr Norepinephrine Bitartrate 4 mg (/ Dextrose/Water) 250 mls @ 7.5 mls/hr IV TITRATE [facility]; Protocol Last Titration: 05/17/18 15:33 Dose: 0 mcg/min, 0 mls/hr Lactulose (Cephulac) 10 gm GTUBE DAILY PRN PRN Reason: Other Levetiracetam (Keppra) 1,000 mg GTUBE BID [facility] Last Admin: 05/17/18 21:17 Dose: 1,000 mg Lorazepam (Ativan) 0.25 mg GTUBE DAILY [facility] Last Admin: 05/17/18 08:31 Dose: 0.25 mg Lorazepam (Ativan) 2 mg IVPUSH Q4H PRN PRN Reason: Seizures Magnesium Oxide (Magnesium Oxide) 400 mg GTUBE BID [facility] Last Admin: 05/17/18 21:18 Dose: 400 mg Magnesium Sulfate (Pharmacy To Dose - Magnesium Replacement) 1 dose .XX ASDIRECTED [facility] Metoprolol Tartrate (Lopressor) 5 mg IVPUSH Q4H PRN PRN Reason: Tachycardia Last Admin: 05/16/18 19:49 Dose: 5 mg Morphine Sulfate (Morphine 10 Mg/0.5 Ml Oral Syringe) 2 mg .XX Q2HR PRN PRN Reason: Pain Last Admin: 05/16/18 17:36 Dose: 2 mg Multivitamins (Thera) 1 each .XX BEDTIME [facility] Last Admin: 05/17/18 21:17 Dose: 1 each Nystatin (Nystatin Crm) 0 gm TOP BID [facility] Last Admin: 05/17/18 21:18 Dose: 1 applic Ondansetron HCl (Zofran Odt) 8 mg GTUBE Q6H PRN PRN Reason: Nausea Oxycodone/Acetaminophen (Percocet 325-5 Mg) 1 tab PO Q4H PRN PRN Reason: Pain (moderate 4-6) Last Admin: 05/16/18 20:48 Dose: 1 tab Potassium Chloride (Pharmacy To Dose - Potassium Replacement) 1 dose .XX ASDIRECTED [facility] Saccharomyces Boulardii (Florastor) 250 mg PO TID [facility] Last Admin: 05/17/18 21:18 Dose: 250 mg Senna/Docusate Sodium (Senna Plus) 2 tab GTUBE BID [facility] Last Admin: 05/17/18 21:18 Dose: 2 tab Tizanidine HCl (Zanaflex) 2 mg GTUBE TID [facility] Last Admin: 05/17/18 21:18 Dose: 2 mg Discontinued Medications Enoxaparin Sodium (Lovenox) 40 mg SUBCUT BEDTIME [facility] Last Admin: 05/17/18 00:14 Dose: Not Given Hydrocortisone Sodium Succinate (Solu-Cortef) 100 mg IVPUSH Q6H [facility] Last Admin: 05/17/18 00:14 Dose: Not Given Piperacillin Sod/Tazobactam (Sod 4.5 gm/ Sodium Chloride) 100 mls @ 25 mls/hr IV ONETIME STA Stop: 05/16/18 10:34 Last Admin: 05/16/18 07:18 Dose: 25 mls/hr Sodium Chloride (Normal Saline) 1,000 mls @ 999 mls/hr IV ONETIME ONE Stop: 05/16/18 07:35 Last Admin: 05/16/18 07:18 Dose: 999 mls/hr Dextrose/Sodium Chloride (Dextrose 5%-Normal Saline) 1,000 mls @ 75 mls/hr IV ASDIRECTED [facility] Last Admin: 05/16/18 09:44 Dose: 75 mls/hr Sodium Chloride (Normal Saline) 2,000 mls @ 999 mls/hr IV ONETIME ONE Stop: 05/16/18 18:23 Last Admin: 05/16/18 17:16 Dose: 999 mls/hr Sodium Chloride (Normal Saline) Confirm Administered Dose 1,000 mls @ as directed .ROUTE .STK-MED ONE Stop: 05/16/18 17:32 Last Admin: 05/16/18 17:40 Dose: Not Given Midodrine (Midodrine) 5 mg PO TIDAC [facility] Stop: 05/18/18 07:01 Last Admin: 05/18/18 06:34 Dose: 5 mg Non-Formulary Medication (Lactose-Reduced Food/Fiber [Jevity 1.2 Ugo Liquid]) 260 ml GTUBE 5XDAY [facility] Last Admin: 05/17/18 11:31 Dose: Not Given Non-Formulary Medication (Water [Water]) 100 ml GTUBE TID [facility] Last Admin: 05/17/18 10:25 Dose: Not Given Potassium Chloride (Potassium Chloride Solution) 20 meq PO BID [facility] Last Admin: 05/16/18 20:52 Dose: 20 meq - Exam General: Cooperative, No Acute Distress, Other (Awake) HEENT: Pupils Reactive Neck: Supple Lungs: Normal Respiratory Effort, Decreased Breath Sounds Cardiovascular: Regular Rate, Regular Rhythm GI/Abdominal Exam: Soft, Non-Tender, No Abnormal Bruit, Distended, Abnormal Bowel Sounds, Other (gastric tube) (Female) Exam: Deferred Back Exam: Other (deferred) Extremities: Non-Tender, Pedal Edema (4+), Slow Capillary Refill Peripheral Pulses: 1+: Dorsalis Pedis (L), Dorsalis Pedis (R) Skin: Warm, Dry, Intact, Cool (on bilateral knee), Other (bilateral knee all the way up to the thighs) Neurological: Other (deferred, she is bedbound) Psy/Mental Status: Alert, Normal Mood. No: Normal Affect - Problem List Review Problem List Initiated/Reviewed/Updated: Yes - My Orders Last 24 Hours: My Active Orders 05/17/18 09:00 Cholecalciferol (Vitamin D3) [Vitamin D3] 2,000 units GTUBE DAILY Enoxaparin [Lovenox] 40 mg SUBCUT DAILY FLUoxetine [PROzac] 10 mg GTUBE DAILY Famotidine [Pepcid] 20 mg PO BID LORazepam [Ativan] 0.25 mg GTUBE DAILY Saccharomyces Boulardii [Florastor] 250 mg PO TID 05/17/18 22:07 Oxygen Therapy [RC] PRN 05/17/18 Breakfast Tube Feeding Adult Diet [DIET] 05/18/18 05:20 CBC WITH AUTO DIFF [HEME] AM 05/18/18 06:47 LACTIC ACID [CHEM] Routine 05/18/18 06:50 KUB [Abdomen 1V Flat] [CR] Routine 05/19/18 05:11 BMP [BASIC METABOLIC PANEL,BMP] [CHEM] AM CBC WITH AUTO DIFF [HEME] AM CRP [C-REACTIVE PROTEIN] [CHEM] AM MG [MAGNESIUM] [CHEM] AM 05/20/18 05:11 BMP [BASIC METABOLIC PANEL,BMP] [CHEM] AM CBC WITH AUTO DIFF [HEME] AM CRP [C-REACTIVE PROTEIN] [CHEM] AM MG [MAGNESIUM] [CHEM] AM 05/21/18 05:11 BMP [BASIC METABOLIC PANEL,BMP] [CHEM] AM CBC WITH AUTO DIFF [HEME] AM CRP [C-REACTIVE PROTEIN] [CHEM] AM MG [MAGNESIUM] [CHEM] AM 05/22/18 05:11 CBC WITH AUTO DIFF [HEME] AM - Plan Plan:: Assessment/Plan: Acute: Bacteremia w/ Hypotension - 2/2 UTI due to neurogenic bladder from MS - Carries a hx/o Multiple Urine and Blood Infections in the past - Risk Factor: Advanced MS, AMS, Recurrent UTI and Aspiration Syndrome 2/2 Dysphagia - Fever of 39 C; WBC of 14.22, HR of 119-128, BP of 92/34, 100/48, 101/58 mmHg, RR 24-33 - LA 6.2 --> 5.3 --> 5.6--> 3.1-->2.2; received a total of 3L of NS overnight plus 1L NS at 125 cc/hr but remained hypotensive overnight - Procalcitonin 5.44 (high risk progression to severe sepsis) - 1 set of bottle positive for Staph Coagulase Neg (possible contamination) - Discontinue Solucortef 100 mg IV Q6H; She is now off Levophed drip - High pseudomonal risk due to recent multiple antibiotic use: Azithromycin -, Cipro 05/10-, and Bactrim 05/13- - Continue Triple antibiotic regimen: IV Levaquin, Zosyn and Vancomycin - Midodrin 5 mg po TIDAC for Hypotension - Florinef 0.1 mg po BID for Orthostatic/Autonomic Dysfunction UTI - 2/2 Urinary retention from neurogenic bladder - UA is pos for E. Faecalis and Gram Pos Coccobacillus - IV Antibiotics as above for coverage Atelectasis/Increased Density Right Lung Base - Carries a hx/o Dysphagia - Cannot r/o Aspiration Syndrome - Continue IV Zosyn and Levaquin; She is on H2B for aspiration prophylaxis Anemia - Acute on Chronic - Hgb of 8.5 and Hct 29; baseline is 11- (February 2018)--> 6.9 - Stool occult study-pending; she has not had a bowel movement - Iron Panel: shows Anemia of Chronic Disease - Asked earlier if she wants blood transfusion; she said no. But changed her mind when her mom was at bedside. Constipation/Ileus - Has not had a bowel since the - She is on narcotics and plenty of anticholinergics - KUB r/o SBO - Hold tube feeding for now - Rectal suppository BID until bowel movement; consider lactulose or magnesium - Prokinetic agent since she is bedbound and immobile End of Life Care - Again we spoke to mother and sister at bedside; they understand "comfort measures" but they want treatment of Violette's infection Hypoalbuminemia - Albumin 1.2 - Reasons why she has significant peripheral edema - Dietary consult Chronic: Dysphagia Urinary Retention Back Pain OA Spasms Osteoporosis CVA/TIA MS Anemia of Chronic Disease Seizure Disorder Hx/o DVT/VTE Alzheimer's Disease DM2, BS controlled Anxiety Depression Plan: She looks clinically better but still hemodynamically unstable Routine AM Labs Sepsis Protocol; de-escalate IV antibiotics once we know more details about her organisms Blood Transfusions of 2 units of PRBC Bumex 0.5 mg IVP BID KVO maintenance fluid Aspiration/Seizure/Fall Precaution DVT/GI PPx: Lovenox SubQ/H2B Additional orders as above SW/CM for D/c planning DNR/DNI/Comfort Measures Updated mom at bedside about her recent lab results, clinical status, additional tests to order and treatment plan.
[2018-05-18] MEDS ORDERED: Bumetanide 1 MG/4 ML MDV IVPUSH ONE (08:00)
[2018-05-18] MEDS: LORazepam 0.5 MG Tab GTUBE SCH (09:21)
[2018-05-18] MEDS: levETIRAcetam Soln 500 MG/5 ML Cup GTUBE SCH ×2 (09:22→20:07)
[2018-05-18] MEDS: Saccharomyces Boulardii (Probiotic) 250 MG Cap PO SCH ×3 (09:22→20:03)
[2018-05-18] MEDS: Magnesium Oxide 400 MG Tab GTUBE SCH ×2 (09:23→20:05)
[2018-05-18] MEDS: Nystatin Crm 30 GM Tube TOP SCH ×2 (09:23→21:03)
[2018-05-18] MEDS: Potassium Chloride 10% 20 MEQ/15 ML Soln 15 ML UD Cup PO SCH ×2 (09:23→20:07)
[2018-05-18] MEDS: FLUoxetine 10 MG Cap GTUBE SCH (09:24)
[2018-05-18] MEDS: Cholecalciferol (Vitamin D3) 1,000 Unit Tab GTUBE SCH (09:24)
[2018-05-18] MEDS: Famotidine 20 MG Tab PO SCH ×2 (09:24→20:05)
[2018-05-18] MEDS: tiZANidine 4 MG Tab GTUBE SCH ×3 (09:25→20:05)
[2018-05-18] MEDS: Enoxaparin 40 MG/0.4 ML Syringe SUBCUT SCH (09:54)
--- NOTE | 2018-05-18 10:50 | CR ---
Abdomen: Supine portable view of the abdomen was obtained. Gas is noted within sigmoid colon as well as within portions of mildly prominent small bowel. Bowel gas is central within the abdomen raising the possibility of ascites. Calcifications are seen overlying the right kidney compatible with numerous renal calculi. Bony structures are osteopenic. Impression: 1. Dilated sigmoid colon as well as small bowel. Findings most suspicious for ileus. 2. Central position of bowel raising the possibility of ascites. Ultrasound would be confirmatory if clinically needed. 3. Multiple calcifications within the right kidney. Diagnostic code #3
[2018-05-18] MEDS ORDERED: Metoclopramide 10 MG/2 ML SDV IVPUSH SCH (11:45)
[2018-05-18] MEDS: Bisacodyl 10 MG Supp RECTAL PRN (12:46)
[2018-05-18] MEDS ORDERED: Sodium Chloride 0.9% 250 ML ONE (16:51)
[2018-05-18] MEDS: Metoclopramide 10 MG/2 ML SDV IVPUSH SCH ×2 (18:09→22:24)
[2018-05-18] MEDS: Fludrocortisone 0.1 MG Tab PO SCH (18:09)
[2018-05-18] MEDS: Levofloxacin/Dextrose 5%-Water 500 MG in Premix Bag 1 BAG IV SCH (19:58)
[2018-05-18] MEDS: Multivitamins,Therapeutic Tab SCH (20:06)
[2018-05-18] MEDS: Bumetanide 1 MG/4 ML MDV IVPUSH SCH (20:07)
[2018-05-19] MEDS: Piperacillin/Tazobactam 4.5 GM in Sodium Chloride 0.9% 100 ML IV SCH ×3 (05:04→20:40)
[2018-05-19] MEDS: Metoclopramide 10 MG/2 ML SDV IVPUSH SCH (05:05)
[2018-05-19] MEDS: Fludrocortisone 0.1 MG Tab PO SCH ×2 (06:04→17:09)
[2018-05-19] MEDS: Midodrine 5 MG Tab PO SCH ×3 (06:04→17:09)
--- NOTE | 2018-05-19 07:45 | PCM.PN ---
- General Info Date of Service: 05/19/18 Admission Dx/Problem (Free Text): Admission Diagnosis/Problem Admission Diagnosis/Problem Urosepsis Subjective Update: Follow Up Functional Status: Reports: Pain Controlled. Denies: New Symptoms - Review of Systems General: Denies: Fever, Chills HEENT: Reports: No Symptoms Pulmonary: Denies: Shortness of Breath Cardiovascular: Denies: Chest Pain Gastrointestinal: Denies: Abdominal Pain, Constipation, Nausea, Vomiting Genitourinary: Reports: Retention (chronic) Musculoskeletal: Denies: No Symptoms Skin: Reports: Mottled Neurological: Reports: Weakness, Gait Disturbance. Denies: Confusion Psychiatric: Denies: Depression, Mood Lability, Anxiety, Agitation, Hallucinations Systems Review Comment:: No overnight issues. She had a bowel movement at least 3 times. Her vitals are stable. She is comfortable and in no acute distress. She still has significant peripheral edema. Her Hgb has improved to 10.8 this AM. Her K is slightly low at 3. - Patient Data Vitals - Most Recent: Last Vital Signs Temp 36.6 C 05/19/18 03:58 Pulse 92 05/19/18 03:58 Resp 21 H 05/19/18 03:58 BP 137/76 05/19/18 05:15 Pulse Ox 94 L 05/19/18 03:58 Weight - Most Recent: 76.294 kg I&O - Last 24 Hours: Intake & Output 05/18/18 05/19/18 05/19/18 22:59 06:59 14:59 Intake Total 1728 78 Output Total 200 265 Balance 1528 -187 Lab Results Last 24 Hours: Laboratory Results - last 24 hr 05/18/18 05/18/18 05/18/18 Range/Units 05:20 05:20 07:50 WBC (3.98-10.04) K/mm3 RBC (3.98-5.22) M/mm3 Hgb (11.2-15.7) gm/L Hct (34.1-44.9) % MCV (79.4-94.8) fl MCH (25.6-32.2) pg MCHC (32.2-35.5) g/dl RDW Std Deviation (36.4-46.3) fL Plt Count (182-369) K/mm3 MPV (9.4-12.3) fl Neut % (Auto) (34.0-71.1) % Lymph % (Auto) (19.3-51.7) % Vance % (Auto) (4.7-12.5) % Eos % (Auto) (0.7-5.8) Baso % (Auto) (0.1-1.2) % Neut # (Auto) (1.56-6.13) K/mm3 Lymph # (Auto) (1.18-3.74) K/mm3 Vance # (Auto) (0.24-0.36) K/mm3 Eos # (Auto) (0.04-0.36) K/mm3 Baso # (Auto) (0.01-0.08) K/mm3 Manual Slide Review Abnormal smear Sodium (136-145) mEq/L Potassium (3.5-5.1) mEq/L Chloride (98-107) mEq/L Carbon Dioxide (21-32) mEq/L Anion Gap (5-15) BUN (7-18) mg/dL Creatinine (0.55-1.02) mg/dL Est Cr Clr Drug Dosing mL/min Estimated GFR (MDRD) (>60) mL/min BUN/Creatinine Ratio (14-18) Glucose (74-106) mg/dL Lactic Acid 2.2 H (0.4-2.0) mmol/L Calcium (8.5-10.1) mg/dL Magnesium (1.8-2.4) mg/dl C-Reactive Protein (<1.0) mg/dL Blood Type Cancelled Gel Antibody Screen Cancelled Crossmatch 05/18/18 05/18/18 05/19/18 Range/Units 07:50 23:30 05:35 WBC 23.78 H (3.98-10.04) K/mm3 RBC 4.18 (3.98-5.22) M/mm3 Hgb 11.0 L 10.8 L (11.2-15.7) gm/L Hct 34.7 (34.1-44.9) % MCV 83.0 (79.4-94.8) fl MCH 25.8 (25.6-32.2) pg MCHC 31.1 L (32.2-35.5) g/dl RDW Std Deviation 50.3 H (36.4-46.3) fL Plt Count 530 H (182-369) K/mm3 MPV 9.5 (9.4-12.3) fl Neut % (Auto) 88.0 H (34.0-71.1) % Lymph % (Auto) 9.8 L (19.3-51.7) % Vance % (Auto) 1.2 L (4.7-12.5) % Eos % (Auto) 0 L (0.7-5.8) Baso % (Auto) 0.1 (0.1-1.2) % Neut # (Auto) 20.93 H (1.56-6.13) K/mm3 Lymph # (Auto) 2.33 (1.18-3.74) K/mm3 Vance # (Auto) 0.28 (0.24-0.36) K/mm3 Eos # (Auto) 0.00 L (0.04-0.36) K/mm3 Baso # (Auto) 0.02 (0.01-0.08) K/mm3 Manual Slide Review Abnormal smear Sodium (136-145) mEq/L Potassium (3.5-5.1) mEq/L Chloride (98-107) mEq/L Carbon Dioxide (21-32) mEq/L Anion Gap (5-15) BUN (7-18) mg/dL Creatinine (0.55-1.02) mg/dL Est Cr Clr Drug Dosing mL/min Estimated GFR (MDRD) (>60) mL/min BUN/Creatinine Ratio (14-18) Glucose (74-106) mg/dL Lactic Acid (0.4-2.0) mmol/L Calcium (8.5-10.1) mg/dL Magnesium (1.8-2.4) mg/dl C-Reactive Protein (<1.0) mg/dL Blood Type A NEGATIVE Gel Antibody Screen Negative Crossmatch See Detail 05/19/18 Range/Units 05:35 WBC (3.98-10.04) K/mm3 RBC (3.98-5.22) M/mm3 Hgb (11.2-15.7) gm/L Hct (34.1-44.9) % MCV (79.4-94.8) fl MCH (25.6-32.2) pg MCHC (32.2-35.5) g/dl RDW Std Deviation (36.4-46.3) fL Plt Count (182-369) K/mm3 MPV (9.4-12.3) fl Neut % (Auto) (34.0-71.1) % Lymph % (Auto) (19.3-51.7) % Vance % (Auto) (4.7-12.5) % Eos % (Auto) (0.7-5.8) Baso % (Auto) (0.1-1.2) % Neut # (Auto) (1.56-6.13) K/mm3 Lymph # (Auto) (1.18-3.74) K/mm3 Vance # (Auto) (0.24-0.36) K/mm3 Eos # (Auto) (0.04-0.36) K/mm3 Baso # (Auto) (0.01-0.08) K/mm3 Manual Slide Review Sodium 141 (136-145) mEq/L Potassium 3.0 L (3.5-5.1) mEq/L Chloride 107 (98-107) mEq/L Carbon Dioxide 24 (21-32) mEq/L Anion Gap 13.0 (5-15) BUN 29 H (7-18) mg/dL Creatinine 0.8 (0.55-1.02) mg/dL Est Cr Clr Drug Dosing 71.50 mL/min Estimated GFR (MDRD) > 60 (>60) mL/min BUN/Creatinine Ratio 36.3 H (14-18) Glucose 90 (74-106) mg/dL Lactic Acid (0.4-2.0) mmol/L Calcium 10.1 (8.5-10.1) mg/dL Magnesium 1.9 (1.8-2.4) mg/dl C-Reactive Protein 31.4 H* (<1.0) mg/dL Blood Type Gel Antibody Screen Crossmatch Peter Results Last 24 Hours: Microbiology 05/16/18 07:15 Aerobic Blood Culture - Preliminary Blood - Venous - Lab Draw NO GROWTH AFTER 3 DAYS Anaerobic Blood Culture - Final 05/16/18 07:28 Aerobic Blood Culture - Preliminary Blood - Venous NO GROWTH AFTER 3 DAYS Anaerobic Blood Culture - Preliminary Staphylococcus Coagulase Neg 05/18/18 22:00 Occult Blood - Preliminary Stool / Feces 05/16/18 06:57 Urine Culture - Preliminary Urine, Catheterized Enterococcus Faecalis Gram Positive Coccobacillus Med Orders - Current: Current Medications Acetaminophen (Tylenol) 650 mg GTUBE Q4H PRN PRN Reason: Pain/Fever Last Admin: 05/17/18 00:46 Dose: 650 mg Atropine Sulfate (Atropine 1% Ophth Soln) 0 ml SL Q4H PRN PRN Reason: extra secretions Bisacodyl (Dulcolax) 10 mg RECTAL BID PRN PRN Reason: Constipation Last Admin: 05/18/18 12:46 Dose: 10 mg Bumetanide (Bumex) 0.5 mg IVPUSH BID PENDING SALE TO [facility] Stop: 05/20/18 21:01 Last Admin: 05/18/18 20:07 Dose: 0.5 mg Cholecalciferol (Vitamin D3) 2,000 units GTUBE DAILY PENDING SALE TO [facility] Last Admin: 05/18/18 09:24 Dose: 2,000 units Enoxaparin Sodium (Lovenox) 40 mg SUBCUT DAILY PENDING SALE TO [facility] Last Admin: 05/18/18 09:54 Dose: 40 mg Famotidine (Pepcid) 20 mg PO BID PENDING SALE TO [facility] Last Admin: 05/18/18 20:05 Dose: 20 mg Fludrocortisone Acetate (Florinef) 0.1 mg PO BIDMEALS PENDING SALE TO [facility] Last Admin: 05/19/18 06:04 Dose: 0.1 mg Fluoxetine HCl (Prozac) 10 mg GTUBE DAILY PENDING SALE TO [facility] Last Admin: 05/18/18 09:24 Dose: 10 mg Hydralazine HCl (Apresoline) 20 mg IVPUSH Q4H PRN PRN Reason: Hypertension Levofloxacin/Dextrose 500 mg/ (Premix) 100 mls @ 100 mls/hr IV Q24H PENDING SALE TO [facility] Last Admin: 05/18/18 19:58 Dose: 100 mls/hr Piperacillin Sod/Tazobactam (Sod 4.5 gm/ Sodium Chloride) 100 mls @ 25 mls/hr IV Q8H PENDING SALE TO [facility] Last Admin: 05/19/18 05:04 Dose: 25 mls/hr Vancomycin HCl 1 gm/ Sodium (Chloride) 250 mls @ 250 mls/hr IV Q12H PENDING SALE TO [facility] Last Admin: 05/19/18 00:00 Dose: 250 mls/hr Norepinephrine Bitartrate 4 mg (/ Dextrose/Water) 250 mls @ 7.5 mls/hr IV TITRATE KHAI; Protocol Last Titration: 05/17/18 15:33 Dose: 0 mcg/min, 0 mls/hr Sodium Chloride (Normal Saline) 1,000 mls @ 15 mls/hr IV ASDIRECTED KHAI Last Admin: 05/18/18 22:31 Dose: 15 mls/hr Lactulose (Cephulac) 10 gm GTUBE DAILY PRN PRN Reason: Other Levetiracetam (Keppra) 1,000 mg GTUBE BID PENDING SALE TO [facility] Last Admin: 05/18/18 20:07 Dose: 1,000 mg Lorazepam (Ativan) 0.25 mg GTUBE DAILY PENDING SALE TO [facility] Last Admin: 05/18/18 09:21 Dose: 0.25 mg Lorazepam (Ativan) 2 mg IVPUSH Q4H PRN PRN Reason: Seizures Magnesium Oxide (Magnesium Oxide) 400 mg GTUBE BID PENDING SALE TO [facility] Last Admin: 05/18/18 20:05 Dose: 400 mg Magnesium Sulfate (Pharmacy To Dose - Magnesium Replacement) 1 dose .XX ASDIRECTED PENDING SALE TO [facility] Metoprolol Tartrate (Lopressor) 5 mg IVPUSH Q4H PRN PRN Reason: Tachycardia Last Admin: 05/16/18 19:49 Dose: 5 mg Midodrine (Midodrine) 5 mg PO TIDAC PENDING SALE TO [facility] Last Admin: 05/19/18 06:04 Dose: 5 mg Morphine Sulfate (Morphine 10 Mg/0.5 Ml Oral Syringe) 2 mg .XX Q2HR PRN PRN Reason: Pain Last Admin: 05/16/18 17:36 Dose: 2 mg Multivitamins (Thera) 1 each .XX BEDTIME PENDING SALE TO [facility] Last Admin: 05/18/18 20:06 Dose: 1 each Nystatin (Nystatin Crm) 0 gm TOP BID PENDING SALE TO [facility] Last Admin: 05/18/18 21:03 Dose: 1 applic Ondansetron HCl (Zofran Odt) 8 mg GTUBE Q6H PRN PRN Reason: Nausea Oxycodone/Acetaminophen (Percocet 325-5 Mg) 1 tab PO Q4H PRN PRN Reason: Pain (moderate 4-6) Last Admin: 05/16/18 20:48 Dose: 1 tab Potassium Chloride (Pharmacy To Dose - Potassium Replacement) 1 dose .XX ASDIRECTED PENDING SALE TO [facility] Potassium Chloride (Potassium Chloride Solution) 20 meq PO BID PENDING SALE TO [facility] Last Admin: 05/18/18 20:07 Dose: 20 meq Saccharomyces Boulardii (Florastor) 250 mg PO TID PENDING SALE TO [facility] Last Admin: 05/18/18 20:03 Dose: 250 mg Senna/Docusate Sodium (Senna Plus) 2 tab GTUBE BID PENDING SALE TO [facility] Last Admin: 05/18/18 20:05 Dose: 2 tab Tizanidine HCl (Zanaflex) 2 mg GTUBE TID PENDING SALE TO [facility] Last Admin: 05/18/18 20:05 Dose: 2 mg Discontinued Medications Bumetanide (Bumex) 0.5 mg IVPUSH ONETIME ONE Stop: 05/18/18 08:01 Last Admin: 05/18/18 08:59 Dose: 0.5 mg Enoxaparin Sodium (Lovenox) 40 mg SUBCUT BEDTIME PENDING SALE TO [facility] Last Admin: 05/17/18 00:14 Dose: Not Given Hydrocortisone Sodium Succinate (Solu-Cortef) 100 mg IVPUSH Q6H PENDING SALE TO [facility] Last Admin: 05/17/18 00:14 Dose: Not Given Hydrocortisone Sodium Succinate (Solu-Cortef) 100 mg IVPUSH Q6H PENDING SALE TO [facility] Last Admin: 05/18/18 12:25 Dose: 100 mg Piperacillin Sod/Tazobactam (Sod 4.5 gm/ Sodium Chloride) 100 mls @ 25 mls/hr IV ONETIME STA Stop: 05/16/18 10:34 Last Admin: 05/16/18 07:18 Dose: 25 mls/hr Sodium Chloride (Normal Saline) 1,000 mls @ 999 mls/hr IV ONETIME ONE Stop: 05/16/18 07:35 Last Admin: 05/16/18 07:18 Dose: 999 mls/hr Dextrose/Sodium Chloride (Dextrose 5%-Normal Saline) 1,000 mls @ 75 mls/hr IV ASDIRECTED PENDING SALE TO [facility] Last Admin: 05/16/18 09:44 Dose: 75 mls/hr Sodium Chloride (Normal Saline) 2,000 mls @ 999 mls/hr IV ONETIME ONE Stop: 05/16/18 18:23 Last Admin: 05/16/18 17:16 Dose: 999 mls/hr Sodium Chloride (Normal Saline) Confirm Administered Dose 1,000 mls @ as directed .ROUTE .STK-MED ONE Stop: 05/16/18 17:32 Last Admin: 05/16/18 17:40 Dose: Not Given Sodium Chloride (Normal Saline) 1,000 mls @ 125 mls/hr IV ASDIRECTED PENDING SALE TO [facility] Last Infusion: 05/18/18 07:00 Dose: 15 mls/hr Sodium Chloride (Normal Saline) Confirm Administered Dose 250 mls @ as directed .ROUTE .STK-MED ONE Stop: 05/18/18 16:52 Last Admin: 05/18/18 17:05 Dose: 200 mls/hr Metoclopramide HCl (Reglan) 5 mg IVPUSH Q6H PENDING SALE TO [facility] Last Admin: 05/18/18 12:25 Dose: 5 mg Metoclopramide HCl (Reglan) 10 mg IVPUSH Q6H PENDING SALE TO [facility] Last Admin: 05/19/18 05:05 Dose: Not Given Midodrine (Midodrine) 5 mg PO TIDAC PENDING SALE TO [facility] Stop: 05/18/18 07:01 Last Admin: 05/18/18 06:34 Dose: 5 mg Non-Formulary Medication (Lactose-Reduced Food/Fiber [Jevity 1.2 Ugo Liquid]) 260 ml GTUBE 5XDAY PENDING SALE TO [facility] Last Admin: 05/17/18 11:31 Dose: Not Given Non-Formulary Medication (Water [Water]) 100 ml GTUBE TID PENDING SALE TO [facility] Last Admin: 05/17/18 10:25 Dose: Not Given Potassium Chloride (Potassium Chloride Solution) 20 meq PO BID PENDING SALE TO [facility] Last Admin: 05/16/18 20:52 Dose: 20 meq - Exam Quality Assessment: No: Supplemental Oxygen General: Alert, No Acute Distress HEENT: Pupils Equal, Pupils Reactive Neck: Supple Lungs: Normal Respiratory Effort, Decreased Breath Sounds Cardiovascular: Regular Rate, Regular Rhythm GI/Abdominal Exam: Normal Bowel Sounds, Soft, Non-Tender, No Organomegaly, No Distention, No Abnormal Bruit, Other (gastric tube) (Female) Exam: Other (indwelling walters catheter) Back Exam: Other (deferred) Extremities: Normal Inspection, Non-Tender, Normal Capillary Refill, Pedal Edema , Slow Capillary Refill, Mottled (on bilateral lower extremity), Other (right arm contracture) Peripheral Pulses: 0: Dorsalis Pedis (L), Dorsalis Pedis (R) Skin: Warm, Dry, Intact Neurological: Other (deferred). No: Normal Gait Psy/Mental Status: Alert, Normal Affect Physical Findings Comments:: She is mostly bedbound. She is able to speak but very minimal. She can answer yes or no questions. She confirms or denies by shaking or nodding her head. - Problem List Review Problem List Initiated/Reviewed/Updated: Yes - My Orders Last 24 Hours: My Active Orders 05/18/18 07:10 Consult to Dietary [Consult to Filling Machine Set Up Mechanic] [CONS] Routine 05/18/18 07:11 Bisacodyl [Dulcolax] 10 mg RECTAL BID PRN 05/18/18 09:00 Potassium Chloride [Potassium Chloride Solution] 20 meq PO BID 05/18/18 10:51 Sodium Chloride 0.9% [Normal Saline] 1,000 ml IV ASDIRECTED 05/18/18 13:20 Transfuse PRBC [Transfuse Red Blood Cells] [COMM] Routine 05/18/18 17:00 Midodrine 5 mg PO TIDAC 05/18/18 18:00 Fludrocortisone [Florinef] 0.1 mg PO BIDMEALS 05/18/18 20:02 Urinary Catheter Assessment [RC] ASDIRECTED 05/18/18 20:15 Walters Catheter Insertion [Insert Urinary Catheter] [OM.PC] Q24H 05/18/18 21:00 Bumetanide [Bumex] 0.5 mg IVPUSH BID 05/20/18 05:11 BMP [BASIC METABOLIC PANEL,BMP] [CHEM] AM CBC WITH AUTO DIFF [HEME] AM CRP [C-REACTIVE PROTEIN] [CHEM] AM MG [MAGNESIUM] [CHEM] AM 05/21/18 05:11 BMP [BASIC METABOLIC PANEL,BMP] [CHEM] AM CBC WITH AUTO DIFF [HEME] AM CRP [C-REACTIVE PROTEIN] [CHEM] AM MG [MAGNESIUM] [CHEM] AM 05/22/18 05:11 CBC WITH AUTO DIFF [HEME] AM - Plan Plan:: Assessment/Plan: Acute: Bacteremia w/o Hypotension - 2/2 UTI due to neurogenic bladder from MS - Carries a hx/o Multiple Urine and Blood Infections in the past - Risk Factor: Advanced MS, AMS, Recurrent UTI and Aspiration Syndrome 2/2 Dysphagia - Fever of 39 C; WBC of 14.22, HR of 119-128, BP of 92/34, 100/48, 101/58 mmHg, RR 24-33 - LA 6.2 --> 5.3 --> 5.6--> 3.1-->2.2; received a total of 3L of NS overnight plus 1L NS at 125 cc/hr but remained hypotensive overnight - Procalcitonin 5.44 (high risk progression to severe sepsis); WBC 28.6--> 23.78; CRP 29.7-->31.4 - 1 set of bottle positive for Staph Coagulase Neg (possible contamination); repeat blood culture x 2 today - Discontinue Solucortef 100 mg IV Q6H; She is now off Levophed drip - High pseudomonal risk due to recent multiple antibiotic use: Azithromycin -, Cipro 05/10-, and Bactrim 05/13- - Continue Triple antibiotic regimen: IV Levaquin, Zosyn and Vancomycin; hopefully we can de-escalate tomorrow - Midodrin 5 mg po TIDAC for Hypotension - Florinef 0.1 mg po BID for Orthostatic/Autonomic Dysfunction UTI - 2/2 Urinary retention from neurogenic bladder - UA is pos for E. Faecalis and Gram Pos Coccobacillus; pending susceptibility - IV Antibiotics as above for coverage Atelectasis/Increased Density Right Lung Base (likely chronic) - Carries a hx/o Dysphagia - Cannot r/o Aspiration Syndrome - Continue IV Zosyn and Levaquin; She is on H2B for aspiration prophylaxis - She is unable to use IS Hypoalbuminemia - Albumin 1.2 - Reason why she has significant peripheral edema - Dietary consult; likely Sunday Hypokalemia - K 3.0 - 2/2 diuretic use - Replete and monitor End of Life Care - Again we spoke to mother and sister at bedside; they understand "comfort measures" but they want treatment of Violette's infection Resolved: S/p Anemia - Acute on Chronic - Hgb of 8.5 and Hct 29; baseline is 11-12 (February 2018)--> 6.9--> 10.8 S/ p 2 units of PRBC transfusion - Stool occult study-pending; she has not had a bowel movement - Iron Panel: shows Anemia of Chronic Disease - Asked earlier if she wants blood transfusion; she said no. But changed her mind when her mom was at bedside. S/p Constipation/Ileus - Has not had a bowel since the - She is on narcotics and plenty of anticholinergics - KUB r/o SBO - Hold tube feeding for now - Rectal suppository BID until bowel movement; consider lactulose or magnesium--> had 3 bowel movements over night - Prokinetic agent since she is bedbound and immobile; d/c prokinetic agent and resume tube feeding Chronic: Dysphagia Urinary Retention Back Pain OA Spasms Osteoporosis CVA/TIA MS Anemia of Chronic Disease Seizure Disorder Hx/o DVT/VTE Alzheimer's Disease DM2, BS controlled Anxiety Depression Plan: She looks clinically and hemodynamically stable Routine AM Labs De-escalate IV antibiotics once we know more details about her organisms; has hx /o multiple organismal infection KVO maintenance fluid Aspiration/Seizure/Fall Precaution DVT/GI PPx: Lovenox SubQ/H2B Additional orders as above SW/CM for D/c planning DNR/DNI/Comfort Measures LOS anticipate > 96hrs due to longer requirement for treatment
[2018-05-19] MEDS: levETIRAcetam Soln 500 MG/5 ML Cup GTUBE SCH ×2 (08:58→20:43)
[2018-05-19] MEDS: Enoxaparin 40 MG/0.4 ML Syringe SUBCUT SCH (08:58)
[2018-05-19] MEDS: Potassium Chloride 10% 20 MEQ/15 ML Soln 15 ML UD Cup PO SCH ×2 (09:00→20:43)
[2018-05-19] MEDS: Magnesium Oxide 400 MG Tab GTUBE SCH ×2 (09:01→20:44)
[2018-05-19] MEDS: LORazepam 0.5 MG Tab GTUBE SCH (09:14)
[2018-05-19] MEDS: tiZANidine 4 MG Tab GTUBE SCH ×3 (09:14→20:43)
[2018-05-19] MEDS: Famotidine 20 MG Tab PO SCH ×2 (09:15→20:44)
[2018-05-19] MEDS: Saccharomyces Boulardii (Probiotic) 250 MG Cap PO SCH ×3 (09:15→20:43)
[2018-05-19] MEDS: FLUoxetine 10 MG Cap GTUBE SCH (09:15)
[2018-05-19] MEDS: Bumetanide 1 MG/4 ML MDV IVPUSH SCH ×2 (09:16→20:16)
[2018-05-19] MEDS: Cholecalciferol (Vitamin D3) 1,000 Unit Tab GTUBE SCH (09:16)
[2018-05-19] MEDS: Nystatin Crm 30 GM Tube TOP SCH ×2 (09:16→20:44)
[2018-05-19] MEDS: Potassium Chloride 10 MEQ in Premix Bag 1 BAG IV SCH ×4 (10:21→13:49)
[2018-05-19] MEDS: Levofloxacin/Dextrose 5%-Water 500 MG in Premix Bag 1 BAG IV SCH (20:40)
[2018-05-19] MEDS: Multivitamins,Therapeutic Tab SCH (20:43)
[2018-05-20] MEDS: Metoprolol Tartrate 5 MG/5 ML SDV IVPUSH PRN (03:20)
[2018-05-20] MEDS: Morphine 10 MG/0.5 ML Oral Syringe PRN (03:22)
[2018-05-20] MEDS: Piperacillin/Tazobactam 4.5 GM in Sodium Chloride 0.9% 100 ML IV SCH (04:03)
[2018-05-20] MEDS: Acetaminophen/oxyCODONE 325-5 MG Tab PO PRN (05:42)
[2018-05-20] MEDS: Sodium Chloride 0.9% 1,000 ML IV SCH ×2 (06:00→21:25)
[2018-05-20] MEDS: Fludrocortisone 0.1 MG Tab PO SCH (06:00)
[2018-05-20] MEDS: Famotidine 20 MG Tab PO SCH ×2 (08:29→20:21)
[2018-05-20] MEDS: levETIRAcetam Soln 500 MG/5 ML Cup GTUBE SCH ×2 (08:29→20:19)
[2018-05-20] MEDS: Enoxaparin 40 MG/0.4 ML Syringe SUBCUT SCH (08:29)
[2018-05-20] MEDS: tiZANidine 4 MG Tab GTUBE SCH ×3 (08:30→20:18)
[2018-05-20] MEDS: Cholecalciferol (Vitamin D3) 1,000 Unit Tab GTUBE SCH (08:30)
[2018-05-20] MEDS: LORazepam 0.5 MG Tab GTUBE SCH (08:30)
[2018-05-20] MEDS: FLUoxetine 10 MG Cap GTUBE SCH (08:30)
[2018-05-20] MEDS: Magnesium Oxide 400 MG Tab GTUBE SCH ×2 (08:30→20:22)
[2018-05-20] MEDS: Bumetanide 1 MG/4 ML MDV IVPUSH SCH ×2 (08:31→20:43)
[2018-05-20] MEDS: Saccharomyces Boulardii (Probiotic) 250 MG Cap PO SCH ×3 (08:31→20:19)
[2018-05-20] MEDS: Nystatin Crm 30 GM Tube TOP SCH ×2 (08:31→20:28)
[2018-05-20] MEDS ORDERED: Potassium Chloride 20 MEQ Tab.ER PO ONE (09:00)
[2018-05-20] MEDS ORDERED: Potassium Chloride 10% 20 MEQ/15 ML Soln 15 ML UD Cup PO SCH (09:00)
[2018-05-20] MEDS ORDERED: Midodrine 5 MG Tab PO SCH (09:00)
[2018-05-20] MEDS ORDERED: LORazepam 2 MG/ML SDV IVPUSH ONE (09:26)
[2018-05-20] MEDS ORDERED: Magnesium Oxide 400 MG Tab GTUBE ONE (12:00)
--- NOTE | 2018-05-20 12:18 | PCM.PN ---
- General Info Date of Service: 05/20/18 Admission Dx/Problem (Free Text): Admission Diagnosis/Problem Admission Diagnosis/Problem Urosepsis Subjective Update: Follow Up Functional Status: Reports: Pain Controlled, Tolerating Diet, Urinating, New Symptoms (tachycardia) - Review of Systems General: Denies: Fever, Chills HEENT: Reports: No Symptoms Pulmonary: Denies: Shortness of Breath, Cough Cardiovascular: Denies: Chest Pain, Palpitations Gastrointestinal: Denies: Abdominal Pain, Nausea, Vomiting Genitourinary: Reports: No Symptoms Musculoskeletal: Reports: No Symptoms Skin: Reports: Mottled, Diaphoresis. Denies: Cyanosis Neurological: Reports: Other (baseline immobility; bedbound) Psychiatric: Denies: Depression, Anxiety, Agitation Systems Review Comment:: She was restless and barely slept until shift change. She has been tachycardic all night w/ heart rate in the teens. She can't verbalize her needs or concerns. She does seem to be in pain or discomfort. She is afebrile and her CRP drops down to 24K. Her K and Mg are mildly low this morning. - Patient Data Vitals - Most Recent: Last Vital Signs Temp 36.6 C 05/20/18 08:00 Pulse 102 H 05/20/18 10:41 Resp 20 05/20/18 08:00 BP 156/89 H 05/20/18 08:00 Pulse Ox 97 05/20/18 08:00 Weight - Most Recent: 76.113 kg I&O - Last 24 Hours: Intake & Output 05/19/18 05/20/18 05/20/18 22:59 06:59 14:59 Intake Total 2040 1085 850 Output Total 645 950 210 Balance 1395 135 640 Lab Results Last 24 Hours: Laboratory Results - last 24 hr 05/20/18 05/20/18 05/20/18 Range/Units 00:30 05:15 05:18 WBC 27.74 H (3.98-10.04) K/mm3 RBC 4.51 (3.98-5.22) M/mm3 Hgb 11.7 (11.2-15.7) gm/L Hct 37.3 (34.1-44.9) % MCV 82.7 (79.4-94.8) fl MCH 25.9 (25.6-32.2) pg MCHC 31.4 L (32.2-35.5) g/dl RDW Std Deviation 52.1 H (36.4-46.3) fL Plt Count 592 H (182-369) K/mm3 MPV 9.5 (9.4-12.3) fl Neut % (Auto) 87.1 H (34.0-71.1) % Lymph % (Auto) 10.2 L (19.3-51.7) % [place] % (Auto) 1.3 L (4.7-12.5) % Eos % (Auto) 0.1 L (0.7-5.8) Baso % (Auto) 0.2 (0.1-1.2) % Neut # (Auto) 24.16 H (1.56-6.13) K/mm3 Lymph # (Auto) 2.84 (1.18-3.74) K/mm3 [place] # (Auto) 0.37 H (0.24-0.36) K/mm3 Eos # (Auto) 0.02 L (0.04-0.36) K/mm3 Baso # (Auto) 0.05 (0.01-0.08) K/mm3 Manual Slide Review Abnormal smear Sodium 143 (136-145) mEq/L Potassium 3.1 L (3.5-5.1) mEq/L Chloride 107 (98-107) mEq/L Carbon Dioxide 26 (21-32) mEq/L Anion Gap 13.1 (5-15) BUN 27 H (7-18) mg/dL Creatinine 0.9 (0.55-1.02) mg/dL Est Cr Clr Drug Dosing 63.55 mL/min Estimated GFR (MDRD) > 60 (>60) mL/min BUN/Creatinine Ratio 30.0 H (14-18) Glucose 176 H (74-106) mg/dL Calcium 10.7 H (8.5-10.1) mg/dL Magnesium 1.7 L (1.8-2.4) mg/dl C-Reactive Protein 24.6 H* (<1.0) mg/dL Vancomycin Trough 35.5 H (10.0-20.0) Peter Results Last 24 Hours: Microbiology 05/16/18 06:57 Urine Culture - Final Urine, Catheterized Enterococcus Faecalis Diphtheroid, Not C Urealyticum 05/16/18 07:15 Aerobic Blood Culture - Preliminary Blood - Venous - Lab Draw NO GROWTH AFTER 4 DAYS Anaerobic Blood Culture - Final 05/16/18 07:28 Aerobic Blood Culture - Preliminary Blood - Venous NO GROWTH AFTER 4 DAYS Anaerobic Blood Culture - Preliminary Staphylococcus Coagulase Neg 05/19/18 15:50 Anaerobic Blood Culture - Final Blood - Venous 05/18/18 22:00 Occult Blood - Preliminary Stool / Feces Med Orders - Current: Current Medications Acetaminophen (Tylenol) 650 mg GTUBE Q4H PRN PRN Reason: Pain/Fever Last Admin: 05/17/18 00:46 Dose: 650 mg Atropine Sulfate (Atropine 1% Ophth Soln) 0 ml SL Q4H PRN PRN Reason: extra secretions Bisacodyl (Dulcolax) 10 mg RECTAL BID PRN PRN Reason: Constipation Last Admin: 05/18/18 12:46 Dose: 10 mg Bumetanide (Bumex) 0.5 mg IVPUSH BID [facility] Stop: 05/20/18 21:01 Last Admin: 05/20/18 08:31 Dose: 0.5 mg Cholecalciferol (Vitamin D3) 2,000 units GTUBE DAILY [facility] Last Admin: 05/20/18 08:30 Dose: 2,000 units Enoxaparin Sodium (Lovenox) 40 mg SUBCUT DAILY [facility] Last Admin: 05/20/18 08:29 Dose: 40 mg Famotidine (Pepcid) 20 mg PO BID [facility] Last Admin: 05/20/18 08:29 Dose: 20 mg Fluoxetine HCl (Prozac) 10 mg GTUBE DAILY [facility] Last Admin: 05/20/18 08:30 Dose: 10 mg Hydralazine HCl (Apresoline) 20 mg IVPUSH Q4H PRN PRN Reason: Hypertension Levofloxacin/Dextrose 500 mg/ (Premix) 100 mls @ 100 mls/hr IV Q24H [facility] Last Admin: 05/19/18 20:40 Dose: 100 mls/hr Norepinephrine Bitartrate 4 mg (/ Dextrose/Water) 250 mls @ 7.5 mls/hr IV TITRATE KHAI; Protocol Last Titration: 05/17/18 15:33 Dose: 0 mcg/min, 0 mls/hr Sodium Chloride (Normal Saline) 1,000 mls @ 15 mls/hr IV ASDIRECTED [facility] Last Admin: 05/20/18 06:00 Dose: 15 mls/hr Lactulose (Cephulac) 10 gm GTUBE DAILY PRN PRN Reason: Other Levetiracetam (Keppra) 1,000 mg GTUBE BID [facility] Last Admin: 05/20/18 08:29 Dose: 1,000 mg Lorazepam (Ativan) 0.25 mg GTUBE DAILY [facility] Last Admin: 05/20/18 08:30 Dose: 0.25 mg Lorazepam (Ativan) 2 mg IVPUSH Q4H PRN PRN Reason: Seizures Magnesium Oxide (Magnesium Oxide) 400 mg GTUBE BID [facility] Last Admin: 05/20/18 08:30 Dose: 400 mg Magnesium Sulfate (Pharmacy To Dose - Magnesium Replacement) 1 dose .XX ASDIRECTED [facility] Metoprolol Tartrate (Lopressor) 5 mg IVPUSH Q4H PRN PRN Reason: Tachycardia Last Admin: 05/20/18 03:20 Dose: 5 mg Morphine Sulfate (Morphine 10 Mg/0.5 Ml Oral Syringe) 2 mg .XX Q2HR PRN PRN Reason: Pain Last Admin: 05/20/18 03:22 Dose: 2 mg Multivitamins (Thera) 1 each .XX BEDTIME [facility] Last Admin: 05/19/18 20:43 Dose: 1 each Nystatin (Nystatin Crm) 0 gm TOP BID [facility] Last Admin: 05/20/18 08:31 Dose: 1 applic Ondansetron HCl (Zofran Odt) 8 mg GTUBE Q6H PRN PRN Reason: Nausea Oxycodone/Acetaminophen (Percocet 325-5 Mg) 1 tab PO Q4H PRN PRN Reason: Pain (moderate 4-6) Last Admin: 05/20/18 05:42 Dose: 1 tab Potassium Chloride (Pharmacy To Dose - Potassium Replacement) 1 dose .XX ASDIRECTED [facility] Potassium Chloride (Potassium Chloride Solution) 40 meq PO BID [facility] Saccharomyces Boulardii (Florastor) 250 mg PO TID [facility] Last Admin: 05/20/18 08:31 Dose: 250 mg Senna/Docusate Sodium (Senna Plus) 2 tab GTUBE BID [facility] Last Admin: 05/20/18 08:30 Dose: 2 tab Tizanidine HCl (Zanaflex) 2 mg GTUBE TID [facility] Last Admin: 05/20/18 08:30 Dose: 2 mg Discontinued Medications Bumetanide (Bumex) 0.5 mg IVPUSH ONETIME ONE Stop: 05/18/18 08:01 Last Admin: 05/18/18 08:59 Dose: 0.5 mg Enoxaparin Sodium (Lovenox) 40 mg SUBCUT BEDTIME [facility] Last Admin: 05/17/18 00:14 Dose: Not Given Fludrocortisone Acetate (Florinef) 0.1 mg PO BIDMEALS [facility] Last Admin: 05/20/18 06:00 Dose: 0.1 mg Hydrocortisone Sodium Succinate (Solu-Cortef) 100 mg IVPUSH Q6H [facility] Last Admin: 05/17/18 00:14 Dose: Not Given Hydrocortisone Sodium Succinate (Solu-Cortef) 100 mg IVPUSH Q6H [facility] Last Admin: 05/18/18 12:25 Dose: 100 mg Piperacillin Sod/Tazobactam (Sod 4.5 gm/ Sodium Chloride) 100 mls @ 25 mls/hr IV ONETIME STA Stop: 05/16/18 10:34 Last Admin: 05/16/18 07:18 Dose: 25 mls/hr Sodium Chloride (Normal Saline) 1,000 mls @ 999 mls/hr IV ONETIME ONE Stop: 05/16/18 07:35 Last Admin: 05/16/18 07:18 Dose: 999 mls/hr Dextrose/Sodium Chloride (Dextrose 5%-Normal Saline) 1,000 mls @ 75 mls/hr IV ASDIRECTED [facility] Last Admin: 05/16/18 09:44 Dose: 75 mls/hr Sodium Chloride (Normal Saline) 2,000 mls @ 999 mls/hr IV ONETIME ONE Stop: 05/16/18 18:23 Last Admin: 05/16/18 17:16 Dose: 999 mls/hr Sodium Chloride (Normal Saline) Confirm Administered Dose 1,000 mls @ as directed .ROUTE .STK-MED ONE Stop: 05/16/18 17:32 Last Admin: 05/16/18 17:40 Dose: Not Given Sodium Chloride (Normal Saline) 1,000 mls @ 125 mls/hr IV ASDIRECTED [facility] Last Infusion: 05/18/18 07:00 Dose: 15 mls/hr Piperacillin Sod/Tazobactam (Sod 4.5 gm/ Sodium Chloride) 100 mls @ 25 mls/hr IV Q8H [facility] Last Admin: 05/20/18 04:03 Dose: 25 mls/hr Vancomycin HCl 1 gm/ Sodium (Chloride) 250 mls @ 250 mls/hr IV Q12H [facility] Last Admin: 05/20/18 01:13 Dose: Not Given Sodium Chloride (Normal Saline) Confirm Administered Dose 250 mls @ as directed .ROUTE .STK-MED ONE Stop: 05/18/18 16:52 Last Admin: 05/18/18 17:05 Dose: 200 mls/hr Potassium Chloride 10 meq/ (Premix) 100 mls @ 100 mls/hr IV Q1H [facility] Stop: 05/19/18 14:59 Last Admin: 05/19/18 13:49 Dose: 100 mls/hr Lorazepam (Ativan) 1 mg IVPUSH ONETIME ONE Stop: 05/20/18 09:27 Last Admin: 05/20/18 10:16 Dose: 1 mg Magnesium Oxide (Magnesium Oxide) 800 mg GTUBE ONETIME ONE Stop: 05/20/18 12:01 Last Admin: 05/20/18 11:13 Dose: 800 mg Metoclopramide HCl (Reglan) 5 mg IVPUSH Q6H [facility] Last Admin: 05/18/18 12:25 Dose: 5 mg Metoclopramide HCl (Reglan) 10 mg IVPUSH Q6H [facility] Last Admin: 05/19/18 05:05 Dose: Not Given Midodrine (Midodrine) 5 mg PO TIDAC [facility] Stop: 05/18/18 07:01 Last Admin: 05/18/18 06:34 Dose: 5 mg Midodrine (Midodrine) 5 mg PO TIDAC [facility] Last Admin: 05/19/18 17:09 Dose: 5 mg Midodrine (Midodrine) 5 mg PO TIDAC [facility] Non-Formulary Medication (Lactose-Reduced Food/Fiber [Jevity 1.2 Ugo Liquid]) 260 ml GTUBE 5XDAY [facility] Last Admin: 05/17/18 11:31 Dose: Not Given Non-Formulary Medication (Water [Water]) 100 ml GTUBE TID [facility] Last Admin: 05/17/18 10:25 Dose: Not Given Potassium Chloride (Potassium Chloride Solution) 20 meq PO BID [facility] Last Admin: 05/16/18 20:52 Dose: 20 meq Potassium Chloride (Potassium Chloride Solution) 20 meq PO BID [facility]I Last Admin: 05/19/18 20:43 Dose: 20 meq Potassium Chloride (Potassium Chloride Solution) 40 meq PO BID [facility] Potassium Chloride (Klor-Con M20) 60 meq PO ONETIME ONE Stop: 05/20/18 09:01 Last Admin: 05/20/18 08:57 Dose: 60 meq Vancomycin HCl (Pharmacy To Dose - Vancomycin) 0 dose .XX ASDIRECTED PRN PRN Reason: RX TO DOSE VANCOMYCIN - Exam General: Alert, Cooperative, Mild Distress HEENT: Pupils Equal, Pupils Reactive Neck: Supple Lungs: Normal Respiratory Effort, Decreased Breath Sounds Cardiovascular: Regular Rhythm, Tachycardia GI/Abdominal Exam: Soft, Non-Tender, No Organomegaly, No Distention, No Abnormal Bruit, Other (gastric tube). No: Normal Bowel Sounds (Female) Exam: Other (indwelling walters catheter) Back Exam: Other (deferred) Extremities: Non-Tender, Pedal Edema, Slow Capillary Refill, Limited Range of Motion, Mottled Peripheral Pulses: 1+: Dorsalis Pedis (L), Dorsalis Pedis (R) Skin: Warm, Dry, Intact Neurological: Other (deferred) Psy/Mental Status: Alert, Anxious - Problem List Review Problem List Initiated/Reviewed/Updated: Yes - My Orders Last 24 Hours: My Active Orders 05/19/18 15:13 Blood Culture x2 Reflex Set [OM.PC] Stat 05/19/18 15:50 CULTURE BLOOD [BC] Stat 05/20/18 10:32 Communication Order [RC] .PRN 05/20/18 10:37 LACTIC ACID [CHEM] Routine 05/20/18 21:00 Potassium Chloride [Potassium Chloride Solution] 40 meq PO BID 05/21/18 05:11 BMP [BASIC METABOLIC PANEL,BMP] [CHEM] AM CBC WITH AUTO DIFF [HEME] AM CRP [C-REACTIVE PROTEIN] [CHEM] AM MG [MAGNESIUM] [CHEM] AM 05/22/18 05:11 CBC WITH AUTO DIFF [HEME] AM - Plan Plan:: Assessment/Plan: Acute: Bacteremia w/o Hypotension - 2/2 UTI due to neurogenic bladder from MS - Carries a hx/o Multiple Urine and Blood Infections in the past - Risk Factor: Advanced MS, AMS, Recurrent UTI and Aspiration Syndrome 2/2 Dysphagia - Fever of 39 C; WBC of 14.22, HR of 119-128, BP of 92/34, 100/48, 101/58 mmHg, RR 24-33 - LA 6.2 --> 5.3 --> 5.6--> 3.1-->2.2; received a total of 3L of NS overnight plus 1L NS at 125 cc/hr but remained hypotensive overnight - Procalcitonin 5.44 (high risk progression to severe sepsis); WBC 28.6--> 23.78; CRP 29.7-->31.4 - 1 set of bottle positive for Staph Coagulase Neg (possible contamination); repeat blood culture -pending - Discontinue Solucortef 100 mg IV Q6H; She is now off Levophed drip - High pseudomonal risk due to recent multiple antibiotic use: Azithromycin -, Cipro 05/10-, and Bactrim 05/13- - Continue IV Levaquin and discontinue IV Zosyn and Vancomycin; hopefully we can de-escalate tomorrow - Discontinue Midodrine 5 mg po TIDAC and Florinef 0.1 mg po BID for Orthostatic/Autonomic Dysfunction UTI - 2/2 Urinary retention from neurogenic bladder - UA is pos for E. Faecalis-sensitive to Quinolone and Gram Pos Coccobacillus (normal dereck per microbiology) - IV Antibiotics as above for coverage Hypoalbuminemia - Albumin 1.2 - Reason why she has significant peripheral edema - Dietary consult; likely Sunday Hypokalemia - K 3.0-->3.1 - 2/2 diuretic use - Replete and monitor Hypomagnesemia - MG 1.7 - Replete and monitor Tachycardia - HR in the teens - This could be her way of telling us she is in pain or in some kind of discomfort - PRN Ativan and Pain Medication - Metoprolol 25 mg po BID; first dose now End of Life Care - Again we spoke to mother and sister at bedside; they understand "comfort measures" but they want treatment of Violette's infection Resolved: S/p Anemia - Acute on Chronic - Hgb of 8.5 and Hct 29; baseline is 11-12 (February 2018)--> 6.9--> 10.8 S/ p 2 units of PRBC transfusion - Stool occult study-pending; she has not had a bowel movement - Iron Panel: shows Anemia of Chronic Disease - Asked earlier if she wants blood transfusion; she said no. But changed her mind when her mom was at bedside. S/p Constipation/Ileus - Has not had a bowel since the - She is on narcotics and plenty of anticholinergics - KUB r/o SBO - Hold tube feeding for now - Rectal suppository BID until bowel movement; consider lactulose or magnesium--> had 3 bowel movements over night - Prokinetic agent since she is bedbound and immobile; d/c prokinetic agent and resume tube feeding S/p Atelectasis/Increased Density Right Lung Base (likely chronic) - Carries a hx/o Dysphagia - Cannot r/o Aspiration Syndrome - Continue IV Zosyn and Levaquin; She is on H2B for aspiration prophylaxis - She is unable to use IS Chronic: Dysphagia Urinary Retention Back Pain OA Spasms Osteoporosis CVA/TIA MS Anemia of Chronic Disease Seizure Disorder Hx/o DVT/VTE Alzheimer's Disease DM2, BS controlled Anxiety Depression Plan: She looks anxious and mildly distress this AM Routine AM Labs KVO maintenance fluid Aspiration/Seizure/Fall Precaution DVT/GI PPx: Lovenox SubQ/H2B Additional orders as above SW/CM for D/c planning DNR/DNI/Comfort Measures LOS > 96hrs due to longer requirement for treatment and pending repeat blood culture
[2018-05-20] MEDS ORDERED: Metoprolol Tartrate 25 MG Tab PO ONE (14:05)
[2018-05-20] MEDS ORDERED: Diltiazem 50 MG/10 ML SDV IVPUSH ONE (15:29)
[2018-05-20] MEDS: Levofloxacin/Dextrose 5%-Water 500 MG in Premix Bag 1 BAG IV SCH (20:17)
[2018-05-20] MEDS: Potassium Chloride 10% 20 MEQ/15 ML Soln 15 ML UD Cup PO SCH (20:20)
[2018-05-20] MEDS: Multivitamins,Therapeutic Tab SCH (20:21)
[2018-05-20] MEDS ORDERED: Metoprolol Tartrate 25 MG Tab PO SCH (21:00)
[2018-05-20] MEDS: LORazepam 2 MG/ML SDV IVPUSH PRN (22:51)
[2018-05-20] MEDS: Metoclopramide 10 MG/2 ML SDV IVPUSH SCH (22:51)
[2018-05-21] MEDS: Diltiazem 50 MG/10 ML SDV IVPUSH PRN ×2 (00:41→05:40)
[2018-05-21] MEDS: Metoclopramide 10 MG/2 ML SDV IVPUSH SCH ×4 (04:30→21:59)
[2018-05-21] MEDS: LORazepam 2 MG/ML SDV IVPUSH PRN (04:30)
[2018-05-21] MEDS: Morphine 10 MG/0.5 ML Oral Syringe PRN ×2 (06:20→17:33)
[2018-05-21] MEDS ORDERED: Magnesium Sulfate/Water 2 GM in Premix Bag 1 BAG IV ONE (08:00)
[2018-05-21] MEDS ORDERED: Sodium Chloride 0.9% 1,000 ML IV SCH (08:30)
[2018-05-21] MEDS ORDERED: Diltiazem 180 MG Cap.CD PO SCH (09:00)
[2018-05-21] MEDS: Meropenem Premix 500 MG in Premix Bag 1 BAG IV SCH ×3 (09:18→21:23)
[2018-05-21] MEDS: Famotidine 20 MG Tab PO SCH ×2 (09:20→21:20)
[2018-05-21] MEDS: Acetaminophen/oxyCODONE 325-5 MG Tab PO PRN (09:20)
[2018-05-21] MEDS: Cholecalciferol (Vitamin D3) 1,000 Unit Tab GTUBE SCH (09:20)
[2018-05-21] MEDS: Magnesium Oxide 400 MG Tab GTUBE SCH ×2 (09:21→21:20)
[2018-05-21] MEDS: levETIRAcetam Soln 500 MG/5 ML Cup GTUBE SCH ×2 (09:22→21:20)
[2018-05-21] MEDS: Saccharomyces Boulardii (Probiotic) 250 MG Cap PO SCH ×3 (09:22→21:20)
[2018-05-21] MEDS: FLUoxetine 10 MG Cap GTUBE SCH (09:22)
[2018-05-21] MEDS: Potassium Chloride 10% 20 MEQ/15 ML Soln 15 ML UD Cup PO SCH ×2 (09:22→21:59)
[2018-05-21] MEDS: LORazepam 0.5 MG Tab GTUBE SCH (09:22)
[2018-05-21] MEDS: tiZANidine 4 MG Tab GTUBE SCH ×3 (09:23→21:20)
[2018-05-21] MEDS: Enoxaparin 40 MG/0.4 ML Syringe SUBCUT SCH (09:23)
[2018-05-21] MEDS: Nystatin Crm 30 GM Tube TOP SCH ×2 (09:33→21:21)
--- NOTE | 2018-05-21 09:39 | PCM.PN ---
- General Info Date of Service: 05/21/18 Admission Dx/Problem (Free Text): Admission Diagnosis/Problem Admission Diagnosis/Problem Urosepsis Subjective Update: Follow Up Functional Status: Reports: Urinating. Denies: New Symptoms - Review of Systems General: Denies: Fever, Chills HEENT: Reports: No Symptoms Pulmonary: Denies: Shortness of Breath, Cough, Sputum Cardiovascular: Denies: Chest Pain, Dyspnea on Exertion, Lightheadedness Gastrointestinal: Denies: Abdominal Pain, Nausea, Vomiting Genitourinary: Reports: Retention, Other Musculoskeletal: Reports: No Symptoms Skin: Reports: Mottled. Denies: Cyanosis Neurological: Reports: Difficulty Walking, Weakness, Gait Disturbance. Denies: Confusion Psychiatric: Denies: Depression, Anxiety, Agitation Systems Review Comment:: She was tachycardic last night but received IV PRN Cardizem. No other significant overnight or acute issues. However her urine output seems to be slowing down. She is a little responsive this morning compared to yesterday. She is afebrile but her WBC is trending up. Her CRP is about the same as yesterday. - Patient Data Vitals - Most Recent: Last Vital Signs Temp 36.6 C 05/21/18 04:00 Pulse 110 H 05/21/18 04:00 Resp 22 H 05/21/18 04:00 BP 139/73 05/21/18 04:00 Pulse Ox 92 L 05/21/18 04:00 Weight - Most Recent: 75.251 kg I&O - Last 24 Hours: Intake & Output 05/20/18 05/21/18 05/21/18 22:59 06:59 14:59 Intake Total 1310 484 Output Total 400 300 30 Balance 910 184 -30 Lab Results Last 24 Hours: Laboratory Results - last 24 hr 05/20/18 05/21/18 05/21/18 Range/Units 13:58 06:50 06:50 WBC 29.30 H (3.98-10.04) K/mm3 RBC 4.50 (3.98-5.22) M/mm3 Hgb 11.6 (11.2-15.7) gm/L Hct 37.5 (34.1-44.9) % MCV 83.3 (79.4-94.8) fl MCH 25.8 (25.6-32.2) pg MCHC 30.9 L (32.2-35.5) g/dl RDW Std Deviation 54.3 H (36.4-46.3) fL Plt Count 499 H (182-369) K/mm3 MPV 9.3 L (9.4-12.3) fl Neut % (Auto) 81.3 H (34.0-71.1) % Lymph % (Auto) 10.6 L (19.3-51.7) % [place] % (Auto) 3.3 L (4.7-12.5) % Eos % (Auto) 0.2 L (0.7-5.8) Baso % (Auto) 0.2 (0.1-1.2) % Neut # (Auto) 23.80 H (1.56-6.13) K/mm3 Lymph # (Auto) 3.12 (1.18-3.74) K/mm3 [place] # (Auto) 0.97 H (0.24-0.36) K/mm3 Eos # (Auto) 0.07 (0.04-0.36) K/mm3 Baso # (Auto) 0.06 (0.01-0.08) K/mm3 Manual Slide Review Abnormal smear Sodium 142 (136-145) mEq/L Potassium 3.8 (3.5-5.1) mEq/L Chloride 108 H (98-107) mEq/L Carbon Dioxide 24 (21-32) mEq/L Anion Gap 13.8 (5-15) BUN 27 H (7-18) mg/dL Creatinine 0.7 (0.55-1.02) mg/dL Est Cr Clr Drug Dosing 81.71 mL/min Estimated GFR (MDRD) > 60 (>60) mL/min BUN/Creatinine Ratio 38.6 H (14-18) Glucose 125 H (74-106) mg/dL Lactic Acid 3.0 H (0.4-2.0) mmol/L Calcium 10.6 H (8.5-10.1) mg/dL Magnesium 1.7 L (1.8-2.4) mg/dl C-Reactive Protein 24.7 H* (<1.0) mg/dL Free T4 (0.76-1.46) ng/dL TSH 3rd Generation (0.358-3.74) uIU/mL 05/21/18 05/21/18 Range/Units 06:50 06:50 WBC (3.98-10.04) K/mm3 RBC (3.98-5.22) M/mm3 Hgb (11.2-15.7) gm/L Hct (34.1-44.9) % MCV (79.4-94.8) fl MCH (25.6-32.2) pg MCHC (32.2-35.5) g/dl RDW Std Deviation (36.4-46.3) fL Plt Count (182-369) K/mm3 MPV (9.4-12.3) fl Neut % (Auto) (34.0-71.1) % Lymph % (Auto) (19.3-51.7) % [place] % (Auto) (4.7-12.5) % Eos % (Auto) (0.7-5.8) Baso % (Auto) (0.1-1.2) % Neut # (Auto) (1.56-6.13) K/mm3 Lymph # (Auto) (1.18-3.74) K/mm3 [place] # (Auto) (0.24-0.36) K/mm3 Eos # (Auto) (0.04-0.36) K/mm3 Baso # (Auto) (0.01-0.08) K/mm3 Manual Slide Review Sodium (136-145) mEq/L Potassium (3.5-5.1) mEq/L Chloride (98-107) mEq/L Carbon Dioxide (21-32) mEq/L Anion Gap (5-15) BUN (7-18) mg/dL Creatinine (0.55-1.02) mg/dL Est Cr Clr Drug Dosing mL/min Estimated GFR (MDRD) (>60) mL/min BUN/Creatinine Ratio (14-18) Glucose (74-106) mg/dL Lactic Acid 2.5 H (0.4-2.0) mmol/L Calcium (8.5-10.1) mg/dL Magnesium (1.8-2.4) mg/dl C-Reactive Protein (<1.0) mg/dL Free T4 1.17 (0.76-1.46) ng/dL TSH 3rd Generation 4.714 H (0.358-3.74) uIU/mL Peter Results Last 24 Hours: Microbiology 05/16/18 07:15 Aerobic Blood Culture - Preliminary Blood - Venous - Lab Draw NO GROWTH AFTER 5 DAYS Anaerobic Blood Culture - Final 05/16/18 07:28 Aerobic Blood Culture - Preliminary Blood - Venous NO GROWTH AFTER 5 DAYS Anaerobic Blood Culture - Final Staphylococcus Coagulase Neg 05/18/18 22:00 Occult Blood - Final Stool / Feces 05/19/18 06:03 Aerobic Blood Culture - Preliminary Blood - Venous - Lab Draw NO GROWTH AFTER 1 DAY Anaerobic Blood Culture - Preliminary NO GROWTH AFTER 1 DAY 05/19/18 15:50 Aerobic Blood Culture - Preliminary Blood - Venous NO GROWTH AFTER 1 DAY Anaerobic Blood Culture - Final 05/16/18 06:57 Urine Culture - Final Urine, Catheterized Enterococcus Faecalis Diphtheroid, Not C Urealyticum Med Orders - Current: Current Medications Acetaminophen (Tylenol) 650 mg GTUBE Q4H PRN PRN Reason: Pain/Fever Last Admin: 05/17/18 00:46 Dose: 650 mg Atropine Sulfate (Atropine 1% [facility]) 0 ml SL Q4H PRN PRN Reason: extra secretions Bisacodyl (Dulcolax) 10 mg RECTAL BID PRN PRN Reason: Constipation Last Admin: 05/18/18 12:46 Dose: 10 mg Cholecalciferol (Vitamin D3) 2,000 units GTUBE DAILY [facility] Last Admin: 05/21/18 09:20 Dose: 2,000 units Diltiazem HCl (Cardizem) 10 mg IVPUSH Q4HR PRN PRN Reason: Tachycardia Last Admin: 05/21/18 05:40 Dose: 10 mg Diltiazem HCl (Cardizem Cd) 180 mg PO DAILY [facility] Last Admin: 05/21/18 09:22 Dose: 180 mg Enoxaparin Sodium (Lovenox) 40 mg SUBCUT DAILY [facility] Last Admin: 05/21/18 09:23 Dose: 40 mg Famotidine (Pepcid) 20 mg PO BID [facility] Last Admin: 05/21/18 09:20 Dose: 20 mg Fluoxetine HCl (Prozac) 10 mg GTUBE DAILY [facility] Last Admin: 05/21/18 09:22 Dose: 10 mg Hydralazine HCl (Apresoline) 20 mg IVPUSH Q4H PRN PRN Reason: Hypertension Norepinephrine Bitartrate 4 mg (/ Dextrose/Water) 250 mls @ 7.5 mls/hr IV TITRATE [facility]; Protocol Last Titration: 05/17/18 15:33 Dose: 0 mcg/min, 0 mls/hr Magnesium Sulfate 2 gm/ Premix 50 mls @ 25 mls/hr IV ONETIME ONE Stop: 05/21/18 09:59 Sodium Chloride (Normal Saline) 1,000 mls @ 75 mls/hr IV ASDIRECTED [facility] Meropenem/Sodium Chloride 500 (mg/ Premix) 50 mls @ 100 mls/hr IV Q6H [facility] Last Admin: 05/21/18 09:18 Dose: 100 mls/hr Lactulose (Cephulac) 10 gm GTUBE DAILY PRN PRN Reason: Other Levetiracetam (Keppra) 1,000 mg GTUBE BID [facility] Last Admin: 05/21/18 09:22 Dose: 1,000 mg Lorazepam (Ativan) 0.25 mg GTUBE DAILY [facility] Last Admin: 05/21/18 09:22 Dose: 0.25 mg Lorazepam (Ativan) 2 mg IVPUSH Q4H PRN PRN Reason: Seizures Lorazepam (Ativan) 0.5 mg IVPUSH Q4H PRN; Protocol PRN Reason: Anxiety Last Admin: 05/21/18 04:30 Dose: 0.5 mg Magnesium Oxide (Magnesium Oxide) 400 mg GTUBE BID [facility] Last Admin: 05/21/18 09:21 Dose: 400 mg Magnesium Sulfate (Pharmacy To Dose - Magnesium Replacement) 1 dose .XX ASDIRECTED [facility] Metoclopramide HCl (Reglan) 10 mg IVPUSH Q6H [facility] Last Admin: 05/21/18 04:30 Dose: 10 mg Morphine Sulfate (Morphine 10 Mg/0.5 Ml Oral Syringe) 2 mg .XX Q2HR PRN PRN Reason: Pain Last Admin: 05/21/18 06:20 Dose: 2 mg Multivitamins (Thera) 1 each .XX BEDTIME [facility] Last Admin: 05/20/18 20:21 Dose: 1 each Nystatin (Nystatin Crm) 0 gm TOP BID [facility] Last Admin: 05/21/18 09:33 Dose: 1 applic Ondansetron HCl (Zofran Odt) 8 mg GTUBE Q6H PRN PRN Reason: Nausea Oxycodone/Acetaminophen (Percocet 325-5 Mg) 1 tab PO Q4H PRN PRN Reason: Pain (moderate 4-6) Last Admin: 05/21/18 09:20 Dose: 1 tab Potassium Chloride (Pharmacy To Dose - Potassium Replacement) 1 dose .XX ASDIRECTED [facility] Potassium Chloride (Potassium Chloride Solution) 40 meq PO BID [facility] Last Admin: 05/21/18 09:22 Dose: 40 meq Saccharomyces Boulardii (Florastor) 250 mg PO TID [facility] Last Admin: 05/21/18 09:22 Dose: 250 mg Senna/Docusate Sodium (Senna Plus) 2 tab GTUBE BID [facility] Last Admin: 05/21/18 09:21 Dose: 2 tab Tizanidine HCl (Zanaflex) 2 mg GTUBE TID [facility] Last Admin: 05/21/18 09:23 Dose: 2 mg Discontinued Medications Bumetanide (Bumex) 0.5 mg IVPUSH ONETIME ONE Stop: 05/18/18 08:01 Last Admin: 05/18/18 08:59 Dose: 0.5 mg Bumetanide (Bumex) 0.5 mg IVPUSH BID [facility] Stop: 05/20/18 21:01 Last Admin: 05/20/18 20:43 Dose: 0.5 mg Diltiazem HCl (Cardizem) 10 mg IVPUSH ONETIME ONE Stop: 05/20/18 15:30 Last Admin: 05/20/18 15:47 Dose: 10 mg Enoxaparin Sodium (Lovenox) 40 mg SUBCUT BEDTIME [facility] Last Admin: 05/17/18 00:14 Dose: Not Given Fludrocortisone Acetate (Florinef) 0.1 mg PO BIDMEALS [facility] Last Admin: 05/20/18 06:00 Dose: 0.1 mg Hydrocortisone Sodium Succinate (Solu-Cortef) 100 mg IVPUSH Q6H [facility] Last Admin: 05/17/18 00:14 Dose: Not Given Hydrocortisone Sodium Succinate (Solu-Cortef) 100 mg IVPUSH Q6H [facility] Last Admin: 05/18/18 12:25 Dose: 100 mg Piperacillin Sod/Tazobactam (Sod 4.5 gm/ Sodium Chloride) 100 mls @ 25 mls/hr IV ONETIME STA Stop: 05/16/18 10:34 Last Admin: 05/16/18 07:18 Dose: 25 mls/hr Sodium Chloride (Normal Saline) 1,000 mls @ 999 mls/hr IV ONETIME ONE Stop: 05/16/18 07:35 Last Admin: 05/16/18 07:18 Dose: 999 mls/hr Dextrose/Sodium Chloride (Dextrose 5%-Normal Saline) 1,000 mls @ 75 mls/hr IV ASDIRECTED [facility] Last Admin: 05/16/18 09:44 Dose: 75 mls/hr Sodium Chloride (Normal Saline) 2,000 mls @ 999 mls/hr IV ONETIME ONE Stop: 05/16/18 18:23 Last Admin: 05/16/18 17:16 Dose: 999 mls/hr Sodium Chloride (Normal Saline) Confirm Administered Dose 1,000 mls @ as directed .ROUTE .STK-MED ONE Stop: 05/16/18 17:32 Last Admin: 05/16/18 17:40 Dose: Not Given Sodium Chloride (Normal Saline) 1,000 mls @ 125 mls/hr IV ASDIRECTED [facility] Last Infusion: 05/18/18 07:00 Dose: 15 mls/hr Levofloxacin/Dextrose 500 mg/ (Premix) 100 mls @ 100 mls/hr IV Q24H [facility] Last Admin: 05/20/18 20:17 Dose: 100 mls/hr Piperacillin Sod/Tazobactam (Sod 4.5 gm/ Sodium Chloride) 100 mls @ 25 mls/hr IV Q8H [facility] Last Admin: 05/20/18 04:03 Dose: 25 mls/hr Vancomycin HCl 1 gm/ Sodium (Chloride) 250 mls @ 250 mls/hr IV Q12H [facility] Last Admin: 05/20/18 01:13 Dose: Not Given Sodium Chloride (Normal Saline) 1,000 mls @ 15 mls/hr IV ASDIRECTED [facility] Last Admin: 05/20/18 21:25 Dose: 15 mls/hr Sodium Chloride (Normal Saline) Confirm Administered Dose 250 mls @ as directed .ROUTE .STK-MED ONE Stop: 05/18/18 16:52 Last Admin: 05/18/18 17:05 Dose: 200 mls/hr Potassium Chloride 10 meq/ (Premix) 100 mls @ 100 mls/hr IV Q1H [facility] Stop: 05/19/18 14:59 Last Admin: 05/19/18 13:49 Dose: 100 mls/hr Lorazepam (Ativan) 1 mg IVPUSH ONETIME ONE Stop: 05/20/18 09:27 Last Admin: 05/20/18 10:16 Dose: 1 mg Magnesium Oxide (Magnesium Oxide) 800 mg GTUBE ONETIME ONE Stop: 05/20/18 12:01 Last Admin: 05/20/18 11:13 Dose: 800 mg Metoclopramide HCl (Reglan) 5 mg IVPUSH Q6H [facility] Last Admin: 05/18/18 12:25 Dose: 5 mg Metoclopramide HCl (Reglan) 10 mg IVPUSH Q6H [facility] Last Admin: 05/19/18 05:05 Dose: Not Given Metoprolol Tartrate (Lopressor) 5 mg IVPUSH Q4H PRN PRN Reason: Tachycardia Last Admin: 05/20/18 03:20 Dose: 5 mg Metoprolol Tartrate (Lopressor) 25 mg PO Q12H [facility] Last Admin: 05/20/18 20:20 Dose: 25 mg Metoprolol Tartrate (Lopressor) 25 mg PO ONETIME ONE Stop: 05/20/18 14:06 Last Admin: 05/20/18 14:13 Dose: 25 mg Midodrine (Midodrine) 5 mg PO TIDAC [facility] Stop: 05/18/18 07:01 Last Admin: 05/18/18 06:34 Dose: 5 mg Midodrine (Midodrine) 5 mg PO TIDAC [facility] Last Admin: 05/19/18 17:09 Dose: 5 mg Midodrine (Midodrine) 5 mg PO TIDAC [facility] Non-Formulary Medication (Lactose-Reduced Food/Fiber [Jevity 1.2 Ugo Liquid]) 260 ml GTUBE 5XDAY [facility] Last Admin: 05/17/18 11:31 Dose: Not Given Non-Formulary Medication (Water [Water]) 100 ml GTUBE TID [facility] Last Admin: 05/17/18 10:25 Dose: Not Given Potassium Chloride (Potassium Chloride Solution) 20 meq PO BID [facility] Last Admin: 05/16/18 20:52 Dose: 20 meq Potassium Chloride (Potassium Chloride Solution) 20 meq PO BID [facility] Last Admin: 05/19/18 20:43 Dose: 20 meq Potassium Chloride (Potassium Chloride Solution) 40 meq PO BID [facility] Potassium Chloride (Klor-Con M20) 60 meq PO ONETIME ONE Stop: 05/20/18 09:01 Last Admin: 05/20/18 08:57 Dose: 60 meq Vancomycin HCl (Pharmacy To Dose - Vancomycin) 0 dose .XX ASDIRECTED PRN PRN Reason: RX TO DOSE VANCOMYCIN - Exam General: No Acute Distress ([place]), Other HEENT: Pupils Equal, Pupils Reactive Neck: Supple Lungs: Normal Respiratory Effort, Decreased Breath Sounds Cardiovascular: Tachycardia GI/Abdominal Exam: Soft, Non-Tender, No Organomegaly, No Distention, No Abnormal Bruit, Other (gastric tube) (Female) Exam: Other (indwelling walters catheter) Back Exam: Other (deferred) Extremities: Pedal Edema, Limited Range of Motion Peripheral Pulses: 0: Dorsalis Pedis (L), Dorsalis Pedis (R) Skin: Warm, Dry, Intact Neurological: Other (unable to perform) Psy/Mental Status: Other (deferred) - Problem List Review Problem List Initiated/Reviewed/Updated: Yes - My Orders Last 24 Hours: My Active Orders 05/20/18 10:32 Communication Order [RC] .PRN 05/20/18 14:06 LORazepam [Ativan] 0.5 mg IVPUSH Q4H PRN 05/20/18 16:31 Diltiazem [Cardizem] 10 mg IVPUSH Q4HR PRN 05/20/18 21:00 Potassium Chloride [Potassium Chloride Solution] 40 meq PO BID 05/20/18 22:45 Metoclopramide [Reglan] 10 mg IVPUSH Q6H 05/21/18 08:00 Magnesium Sulfate/Water [Magnesium Sulfate 2 GM in Water 50 ML] 2 gm Premix Bag 1 bag IV ONETIME 05/21/18 08:30 Sodium Chloride 0.9% [Normal Saline] 1,000 ml IV ASDIRECTED 05/21/18 08:46 Gastric Residual Measurement [OM.PC] Routine 05/21/18 09:00 Diltiazem [Cardizem CD] 180 mg PO DAILY Meropenem Premix [Meropenem] 500 mg Premix Bag 1 bag IV Q6H 05/22/18 05:11 CBC WITH AUTO DIFF [HEME] AM - Plan Plan:: Assessment/Plan: Acute: UTI - 2/2 Urinary retention from neurogenic bladder - UA is pos for E. Faecalis-sensitive to Quinolone and Gram Pos Coccobacillus (normal dereck per microbiology); Added Meropenem due to increasing WBC and persistently elevated CRP - IV Antibiotics as above for coverage Hypoalbuminemia - Albumin 1.2 - Reason why she has significant peripheral edema - Dietary consult; receiving more protein Hypomagnesemia - MG 1.7--> 1.7 - Replete and monitor Sinus Tachycardia, Improved - HR in the teens - This could be her way of telling us she is in pain or in some kind of discomfort - PRN Ativan and Pain Medication - Responded better with CCB; Now on Cardizem - Thyroid Panel l FT4 jamison; TSH slightly elevated End of Life Care - Again we spoke to mother and sister at bedside; they understand "comfort measures" but they want treatment of Violette's infection Resolved: S/p Anemia - Acute on Chronic - Hgb of 8.5 and Hct 29; baseline is 11-12 (February 2018)--> 6.9--> 10.8 S/ p 2 units of PRBC transfusion - Stool occult study-pending; she has not had a bowel movement - Iron Panel: shows Anemia of Chronic Disease - Asked earlier if she wants blood transfusion; she said no. But changed her mind when her mom was at bedside. S/p Constipation/Ileus - Has not had a bowel since the - She is on narcotics and plenty of anticholinergics - KUB r/o SBO - Hold tube feeding for now - Rectal suppository BID until bowel movement; consider lactulose or magnesium--> had 3 bowel movements over night - Prokinetic agent since she is bedbound and immobile; d/c prokinetic agent and resume tube feeding S/p Atelectasis/Increased Density Right Lung Base (likely chronic) - Carries a hx/o Dysphagia - Cannot r/o Aspiration Syndrome - Continue IV Zosyn and Levaquin; She is on H2B for aspiration prophylaxis - She is unable to use IS S/p Bacteremia w/o Hypotension - 2/2 UTI due to neurogenic bladder from MS - Carries a hx/o Multiple Urine and Blood Infections in the past - Risk Factor: Advanced MS, AMS, Recurrent UTI and Aspiration Syndrome 2/2 Dysphagia - Fever of 39 C; WBC of 14.22, HR of 119-128, BP of 92/34, 100/48, 101/58 mmHg, RR 24-33 - LA 6.2 --> 5.3 --> 5.6--> 3.1-->2.2; received a total of 3L of NS overnight plus 1L NS at 125 cc/hr but remained hypotensive overnight - Procalcitonin 5.44 (high risk progression to severe sepsis); WBC 28.6--> 23.78; CRP 29.7-->31.4 - 1 set of bottle positive for Staph Coagulase Neg (possible contamination); repeat blood culture -pending - Discontinue Solucortef 100 mg IV Q6H; She is now off Levophed drip - High pseudomonal risk due to recent multiple antibiotic use: Azithromycin -, Cipro 05/10-, and Bactrim 05/13- - Continue IV Levaquin and discontinue IV Zosyn and Vancomycin; hopefully we can de-escalate tomorrow - Discontinue Midodrine 5 mg po TIDAC and Florinef 0.1 mg po BID for Orthostatic/Autonomic Dysfunction - Repeat blood culture is negative S/p Hypokalemia - K 3.0-->3.1--> 3.8 - 2/2 diuretic use - Replete and monitor Chronic: Dysphagia Urinary Retention Back Pain OA Spasms Osteoporosis CVA/TIA MS Anemia of Chronic Disease Seizure Disorder Hx/o DVT/VTE Alzheimer's Disease DM2, BS controlled Anxiety Depression Plan: She looks more comfortable today. Educated staff to make sure she is comfortable. Anxiety, Discomfort and Pain could be her way to communicate via rapid heart rate or fast breathing. Routine AM Labs Increase IVF rate due to low urine output Aspiration/Seizure/Fall Precaution DVT/GI PPx: Lovenox SubQ/H2B Additional orders as above SW/CM for D/c planning DNR/DNI/Comfort Measures LOS > 96hrs due to longer requirement for treatment; WBC going up, persistent tachycardia and CRP level.
[2018-05-21] MEDS ORDERED: Diltiazem 120 MG Cap.CD PO ONE (21:00)
[2018-05-21] MEDS ORDERED: Furosemide 40 MG/4 ML VIAL IVPUSH ONE (21:13)
[2018-05-21] MEDS ORDERED: Hydrochlorothiazide 25 MG Tab PO ONE (21:14)
[2018-05-21] MEDS: Multivitamins,Therapeutic Tab SCH (21:20)
[2018-05-22] MEDS: hydrALAZINE 20 MG/ML SDV IVPUSH PRN (02:11)
[2018-05-22] MEDS: Meropenem Premix 500 MG in Premix Bag 1 BAG IV SCH ×4 (02:12→20:41)
[2018-05-22] MEDS: Acetaminophen/oxyCODONE 325-5 MG Tab PO PRN ×2 (02:47→14:36)
[2018-05-22] MEDS: Diltiazem 50 MG/10 ML SDV IVPUSH PRN (03:35)
[2018-05-22] MEDS: Metoclopramide 10 MG/2 ML SDV IVPUSH SCH ×4 (04:00→23:04)
[2018-05-22] MEDS ORDERED: Sodium Chloride 0.9% 1,000 ML IV SCH (04:30)
[2018-05-22] MEDS: Hydrochlorothiazide 12.5 MG Cap PO SCH ×2 (06:27→14:35)
[2018-05-22] MEDS: Furosemide 20 MG/2 ML VIAL IVPUSH SCH ×2 (06:29→14:38)
[2018-05-22] MEDS: Enoxaparin 40 MG/0.4 ML Syringe SUBCUT SCH (08:43)
[2018-05-22] MEDS: levETIRAcetam Soln 500 MG/5 ML Cup GTUBE SCH ×2 (08:44→20:21)
[2018-05-22] MEDS: Potassium Chloride 10% 20 MEQ/15 ML Soln 15 ML UD Cup PO SCH ×2 (08:44→20:21)
[2018-05-22] MEDS: LORazepam 0.5 MG Tab GTUBE SCH (08:44)
[2018-05-22] MEDS: tiZANidine 4 MG Tab GTUBE SCH ×3 (08:45→20:19)
[2018-05-22] MEDS: Cholecalciferol (Vitamin D3) 1,000 Unit Tab GTUBE SCH (08:45)
[2018-05-22] MEDS: Famotidine 20 MG Tab PO SCH ×2 (08:45→20:19)
[2018-05-22] MEDS: Magnesium Oxide 400 MG Tab GTUBE SCH ×2 (08:45→20:19)
[2018-05-22] MEDS: Saccharomyces Boulardii (Probiotic) 250 MG Cap PO SCH ×3 (08:45→20:19)
[2018-05-22] MEDS: FLUoxetine 10 MG Cap GTUBE SCH (08:45)
[2018-05-22] MEDS: Diltiazem 240 MG Cap.ER PO SCH (08:46)
[2018-05-22] MEDS: Nystatin Crm 30 GM Tube TOP SCH ×2 (09:13→20:41)
[2018-05-22] MEDS ORDERED: Lactated Ringers 1,000 ML IV SCH (11:00)
--- NOTE | 2018-05-22 11:33 | CR ---
Chest: Portable view of the chest was obtained. Comparison: Prior chest x-ray of 05/17/18. Considerable density is noted within the right lung base. Difficult to exclude superimposed pleural effusion. Slight atelectasis is believed to be present within the left base. Heart size is normal. Upper mediastinum is normal. Bony structures are grossly intact. Impression: 1. Considerable density within the right lung base most likely representing pneumonia or atelectasis or change from aspiration. 2. Difficult to exclude right sided pleural effusion. 3. Mild left basilar atelectasis is seen. Diagnostic code #3
[2018-05-22] MEDS ORDERED: Iopamidol 612 MG/ML 100 ML Bottle IVPUSH ONE (15:25)
[2018-05-22] MEDS: Bisacodyl 10 MG Supp RECTAL PRN (15:50)
--- NOTE | 2018-05-22 15:54 | CT ---
CT chest Technique: Multiple axial sections were obtained from above the lung apices inferiorly through the lung bases. Intravenous contrast was utilized. Comparison: Prior chest x-ray performed earlier on the same day (10:20 AM) Moderate sized right sided pleural effusion is seen. Consolidation is noted within portions of the right lower lung. Mild atelectasis is seen within the left base. Mild areas of increased density within the right upper lung are seen. Small 4 mm subpleural nodule is noted within the right middle lobe. Prominent atherosclerotic plaque is seen within the descending aorta. No aneurysm is seen. No pericardial thickening is noted. Liver appears slightly small as visualized. Several small low density findings are seen which are too small to characterize by Hounsfield unit measurements but most likely representing cysts. Mediastinum and hilar regions show no adenopathy or mass. No axillary adenopathy is seen. No pericardial effusion is seen. Bone window settings shows no acute osseous abnormality. Impression: 1. Moderate sized right sided pleural effusion with consolidation within the right lung base. Mild areas of increased density within the right upper lung are seen. 2. Mild left basilar atelectasis. 3. Small subpleural nodule is noted within the right middle lobe measuring approximately 4 mm. Follow-up chest CT could be obtained in 9 months to confirm stability. This follow-up chest CT would occur in January,. 4. Other incidental findings as noted above. Diagnostic code #3
--- NOTE | 2018-05-22 17:33 | PCM.PN ---
- General Info Date of Service: 05/22/18 Subjective Update: Nonverbal, less interactive; code status: DNR/DNI, comfort care. Functional Status: Reports: Pain Controlled, Tolerating Diet (via PEG), Urinating - Review of Systems General: Reports: Weakness HEENT: Reports: No Symptoms Pulmonary: Reports: No Symptoms Cardiovascular: Reports: No Symptoms Gastrointestinal: Reports: No Symptoms Genitourinary: Reports: No Symptoms Musculoskeletal: Reports: No Symptoms Skin: Reports: No Symptoms Neurological: Reports: No Symptoms Psychiatric: Reports: No Symptoms - Patient Data Vitals - Most Recent: Last Vital Signs Temp 36.2 C 05/22/18 16:00 Pulse 110 H 05/22/18 12:00 Resp 20 05/22/18 16:00 BP 120/74 05/22/18 16:00 Pulse Ox 92 L 05/22/18 16:00 Weight - Most Recent: 78.608 kg I&O - Last 24 Hours: Intake & Output 05/22/18 05/22/18 05/22/18 06:59 14:59 22:59 Intake Total 1421 660 808 Output Total 1000 945 410 Balance 421 -285 398 Lab Results Last 24 Hours: Laboratory Results - last 24 hr 05/22/18 05/22/18 05/22/18 Range/Units 06:00 06:00 10:50 WBC 22.41 H (3.98-10.04) K/mm3 RBC 4.66 (3.98-5.22) M/mm3 Hgb 11.6 (11.2-15.7) gm/L Hct 39.6 (34.1-44.9) % MCV 85.0 (79.4-94.8) fl MCH 24.9 L (25.6-32.2) pg MCHC 29.3 L (32.2-35.5) g/dl RDW Std Deviation 58.6 H (36.4-46.3) fL Plt Count 590 H (182-369) K/mm3 MPV 9.9 (9.4-12.3) fl Neut % (Auto) 76.8 H (34.0-71.1) % Lymph % (Auto) 12.9 L (19.3-51.7) % [facility] % (Auto) 4.9 (4.7-12.5) % Eos % (Auto) 0.2 L (0.7-5.8) Baso % (Auto) 0.2 (0.1-1.2) % Neut # (Auto) 17.22 H (1.56-6.13) K/mm3 Lymph # (Auto) 2.88 (1.18-3.74) K/mm3 [facility] [facility] # (Auto) 1.09 H (0.24-0.36) K/mm3 Eos # (Auto) 0.05 (0.04-0.36) K/mm3 Baso # (Auto) 0.05 (0.01-0.08) K/mm3 Manual Slide Review Abnormal smear Sodium 141 (136-145) mEq/L Potassium 4.2 (3.5-5.1) mEq/L Chloride 107 (98-107) mEq/L Carbon Dioxide 24 (21-32) mEq/L Anion Gap 14.2 (5-15) BUN 33 H (7-18) mg/dL Creatinine 0.8 (0.55-1.02) mg/dL Est Cr Clr Drug Dosing 71.50 mL/min Estimated GFR (MDRD) > 60 (>60) mL/min BUN/Creatinine Ratio 41.3 H (14-18) Glucose 176 H (74-106) mg/dL Lactic Acid 2.5 H (0.4-2.0) mmol/L Calcium 10.9 H (8.5-10.1) mg/dL Magnesium 2.1 (1.8-2.4) mg/dl C-Reactive Protein 19.9 H* (<1.0) mg/dL Mycoplasma pneumon IgM (NEGATIVE) 05/22/18 Range/Units 10:50 WBC (3.98-10.04) K/mm3 RBC (3.98-5.22) M/mm3 Hgb (11.2-15.7) gm/L Hct (34.1-44.9) % MCV (79.4-94.8) fl MCH (25.6-32.2) pg MCHC (32.2-35.5) g/dl RDW Std Deviation (36.4-46.3) fL Plt Count (182-369) K/mm3 MPV (9.4-12.3) fl Neut % (Auto) (34.0-71.1) % Lymph % (Auto) (19.3-51.7) % [facility] % (Auto) (4.7-12.5) % Eos % (Auto) (0.7-5.8) Baso % (Auto) (0.1-1.2) % Neut # (Auto) (1.56-6.13) K/mm3 Lymph # (Auto) (1.18-3.74) K/mm3 [facility] # (Auto) (0.24-0.36) K/mm3 Eos # (Auto) (0.04-0.36) K/mm3 Baso # (Auto) (0.01-0.08) K/mm3 Manual Slide Review Sodium (136-145) mEq/L Potassium (3.5-5.1) mEq/L Chloride (98-107) mEq/L Carbon Dioxide (21-32) mEq/L Anion Gap (5-15) BUN (7-18) mg/dL Creatinine (0.55-1.02) mg/dL Est Cr Clr Drug Dosing mL/min Estimated GFR (MDRD) (>60) mL/min BUN/Creatinine Ratio (14-18) Glucose (74-106) mg/dL Lactic Acid (0.4-2.0) mmol/L Calcium (8.5-10.1) mg/dL Magnesium (1.8-2.4) mg/dl C-Reactive Protein (<1.0) mg/dL Mycoplasma pneumon IgM Negative (NEGATIVE) Peter Results Last 24 Hours: Microbiology 05/19/18 06:03 Aerobic Blood Culture - Preliminary Blood - Venous - Lab Draw NO GROWTH AFTER 3 DAYS Anaerobic Blood Culture - Preliminary NO GROWTH AFTER 3 DAYS 05/19/18 15:50 Aerobic Blood Culture - Preliminary Blood - Venous NO GROWTH AFTER 3 DAYS Anaerobic Blood Culture - Final 05/16/18 07:15 Aerobic Blood Culture - Preliminary Blood - Venous - Lab Draw NO GROWTH AFTER 6 DAYS Anaerobic Blood Culture - Final 05/16/18 07:28 Aerobic Blood Culture - Preliminary Blood - Venous NO GROWTH AFTER 6 DAYS Anaerobic Blood Culture - Final Staphylococcus Coagulase Neg Med Orders - Current: Current Medications Acetaminophen (Tylenol) 650 mg GTUBE Q4H PRN PRN Reason: Pain/Fever Last Admin: 05/17/18 00:46 Dose: 650 mg Atropine Sulfate (Atropine 1% Ophth Soln) 0 ml SL Q4H PRN PRN Reason: extra secretions Bisacodyl (Dulcolax) 10 mg RECTAL BID PRN PRN Reason: Constipation Last Admin: 05/22/18 15:50 Dose: 10 mg Cholecalciferol (Vitamin D3) 2,000 units GTUBE DAILY [facility] Last Admin: 05/22/18 08:45 Dose: 2,000 units Diltiazem HCl (Cardizem) 10 mg IVPUSH Q4HR PRN PRN Reason: Tachycardia Last Admin: 05/22/18 03:35 Dose: 10 mg Diltiazem HCl (Dilacor Xr) 240 mg PO DAILY [facility] [place] Last Admin: 05/22/18 08:46 Dose: 240 mg Enoxaparin Sodium (Lovenox) 40 mg SUBCUT DAILY [facility] [place] Last Admin: 05/22/18 08:43 Dose: 40 mg Famotidine (Pepcid) 20 mg PO BID [facility] Last Admin: 05/22/18 08:45 Dose: 20 mg Fluoxetine HCl (Prozac) 10 mg GTUBE DAILY [facility] [place] Last Admin: 05/22/18 08:45 Dose: 10 mg Furosemide (Lasix) 20 mg IVPUSH BIDDIURETIC [facility] Stop: 05/23/18 14:01 Last Admin: 05/22/18 14:38 Dose: 20 mg Hydralazine HCl (Apresoline) 20 mg IVPUSH Q4H PRN PRN Reason: Hypertension Last Admin: 05/22/18 02:11 Dose: 20 mg Hydrochlorothiazide (Hydrochlorothiazide) 12.5 mg PO BIDDIURETIC [facility]I Stop: 05/23/18 21:00 Last Admin: 05/22/18 14:35 Dose: 12.5 mg Norepinephrine Bitartrate 4 mg (/ Dextrose/Water) 250 mls @ 7.5 mls/hr IV TITRATE [facility]; Protocol Last Titration: 05/17/18 15:33 Dose: 0 mcg/min, 0 mls/hr Meropenem/Sodium Chloride 500 (mg/ Premix) 50 mls @ 100 mls/hr IV Q6H [facility] Last Admin: 05/22/18 14:29 Dose: 100 mls/hr Sodium Chloride (Normal Saline) 1,000 mls @ 25 mls/hr IV ASDIRECTED [facility] Lactated Ringer's (Ringers, Lactated) 1,000 mls @ 50 mls/hr IV ASDIRECTED [facility] Lactulose (Cephulac) 10 gm GTUBE DAILY PRN PRN Reason: Other Levetiracetam (Keppra) 1,000 mg GTUBE BID [facility] Last Admin: 05/22/18 08:44 Dose: 1,000 mg Lorazepam (Ativan) 0.25 mg GTUBE DAILY [facility] [place] Last Admin: 05/22/18 08:44 Dose: 0.25 mg Lorazepam (Ativan) 2 mg IVPUSH Q4H PRN PRN Reason: Seizures Lorazepam (Ativan) 0.5 mg IVPUSH Q4H PRN; Protocol PRN Reason: Anxiety Last Admin: 05/21/18 04:30 Dose: 0.5 mg Magnesium Oxide (Magnesium Oxide) 400 mg GTUBE BID [facility] Last Admin: 05/22/18 08:45 Dose: 400 mg Metoclopramide HCl (Reglan) 10 mg IVPUSH Q6H [facility] [place] Last Admin: 05/22/18 15:50 Dose: 10 mg Morphine Sulfate (Morphine 10 Mg/0.5 Ml Oral Syringe) 2 mg .XX Q2HR PRN PRN Reason: Pain Last Admin: 05/21/18 17:33 Dose: 2 mg Multivitamins (Thera) 1 each .XX BEDTIME [facility] Last Admin: 05/21/18 21:20 Dose: 1 each Nystatin (Nystatin Crm) 0 gm TOP BID [facility] [place] Last Admin: 05/22/18 09:13 Dose: 1 applic Ondansetron HCl (Zofran Odt) 8 mg GTUBE Q6H PRN PRN Reason: Nausea Oxycodone/Acetaminophen (Percocet 325-5 Mg) 1 tab PO Q4H PRN PRN Reason: Pain (moderate 4-6) Last Admin: 05/22/18 14:36 Dose: 1 tab Potassium Chloride (Potassium Chloride Solution) 60 meq PO BID [facility] [place] Last Admin: 05/22/18 08:44 Dose: 60 meq Saccharomyces Boulardii (Florastor) 250 mg PO TID [facility] Last Admin: 05/22/18 14:35 Dose: 250 mg Senna/Docusate Sodium (Senna Plus) 2 tab GTUBE BID [facility] Last Admin: 05/22/18 08:45 Dose: 2 tab Tizanidine HCl (Zanaflex) 2 mg GTUBE TID [facility] [place] Last Admin: 05/22/18 14:35 Dose: 2 mg Discontinued Medications Bumetanide (Bumex) 0.5 mg IVPUSH ONETIME ONE Stop: 05/18/18 08:01 Last Admin: 05/18/18 08:59 Dose: 0.5 mg Bumetanide (Bumex) 0.5 mg IVPUSH BID [facility] Stop: 05/20/18 21:01 Last Admin: 05/20/18 20:43 Dose: 0.5 mg Diltiazem HCl (Cardizem) 10 mg IVPUSH ONETIME ONE Stop: 05/20/18 15:30 Last Admin: 05/20/18 15:47 Dose: 10 mg Diltiazem HCl (Cardizem Cd) 180 mg PO DAILY [facility] Last Admin: 05/21/18 09:22 Dose: 180 mg Diltiazem HCl (Cardizem Cd) 120 mg PO ONETIME ONE Stop: 05/21/18 21:01 Last Admin: 05/21/18 21:20 Dose: 120 mg Enoxaparin Sodium (Lovenox) 40 mg SUBCUT BEDTIME [facility] Last Admin: 05/17/18 00:14 Dose: Not Given Fludrocortisone Acetate (Florinef) 0.1 mg PO BIDMEALS [facility] Last Admin: 05/20/18 06:00 Dose: 0.1 mg Furosemide (Lasix) 40 mg IVPUSH NOW ONE Stop: 05/21/18 21:14 Last Admin: 05/21/18 21:23 Dose: 40 mg Hydrochlorothiazide (Hydrochlorothiazide) 25 mg PO ONETIME ONE Stop: 05/21/18 21:15 Last Admin: 05/21/18 21:23 Dose: 25 mg Hydrocortisone Sodium Succinate (Solu-Cortef) 100 mg IVPUSH Q6H [facility] Last Admin: 05/17/18 00:14 Dose: Not Given Hydrocortisone Sodium Succinate (Solu-Cortef) 100 mg IVPUSH Q6H [facility] Last Admin: 05/18/18 12:25 Dose: 100 mg Piperacillin Sod/Tazobactam (Sod 4.5 gm/ Sodium Chloride) 100 mls @ 25 mls/hr IV ONETIME STA Stop: 05/16/18 10:34 Last Admin: 05/16/18 07:18 Dose: 25 mls/hr Sodium Chloride (Normal Saline) 1,000 mls @ 999 mls/hr IV ONETIME ONE Stop: 05/16/18 07:35 Last Admin: 05/16/18 07:18 Dose: 999 mls/hr Dextrose/Sodium Chloride (Dextrose 5%-Normal Saline) 1,000 mls @ 75 mls/hr IV ASDIRECTED [facility] Last Admin: 05/16/18 09:44 Dose: 75 mls/hr Sodium Chloride (Normal Saline) 2,000 mls @ 999 mls/hr IV ONETIME ONE Stop: 05/16/18 18:23 Last Admin: 05/16/18 17:16 Dose: 999 mls/hr Sodium Chloride (Normal Saline) Confirm Administered Dose 1,000 mls @ as directed .ROUTE .[facility] ONE Stop: 05/16/18 17:32 Last Admin: 05/16/18 17:40 Dose: Not Given Sodium Chloride (Normal Saline) 1,000 mls @ 125 mls/hr IV ASDIRECTED [facility] Last Infusion: 05/18/18 07:00 Dose: 15 mls/hr Levofloxacin/Dextrose 500 mg/ (Premix) 100 mls @ 100 mls/hr IV Q24H [facility] Last Admin: 05/20/18 20:17 Dose: 100 mls/hr Piperacillin Sod/Tazobactam (Sod 4.5 gm/ Sodium Chloride) 100 mls @ 25 mls/hr IV Q8H [facility] Last Admin: 05/20/18 04:03 Dose: 25 mls/hr Vancomycin HCl 1 gm/ Sodium (Chloride) 250 mls @ 250 mls/hr IV Q12H [facility] Last Admin: 05/20/18 01:13 Dose: Not Given Sodium Chloride (Normal Saline) 1,000 mls @ 15 mls/hr IV ASDIRECTED [facility] Last Admin: 05/20/18 21:25 Dose: 15 mls/hr Sodium Chloride (Normal Saline) Confirm Administered Dose 250 mls @ as directed .ROUTE .[facility] ONE Stop: 05/18/18 16:52 Last Admin: 05/18/18 17:05 Dose: 200 mls/hr Potassium Chloride 10 meq/ (Premix) 100 mls @ 100 mls/hr IV Q1H [facility] Stop: 05/19/18 14:59 Last Admin: 05/19/18 13:49 Dose: 100 mls/hr Magnesium Sulfate 2 gm/ Premix 50 mls @ 25 mls/hr IV ONETIME ONE Stop: 05/21/18 09:59 Last Admin: 05/21/18 09:54 Dose: 25 mls/hr Sodium Chloride (Normal Saline) 1,000 mls @ 75 mls/hr IV ASDIRECTED [facility] Last Infusion: 05/21/18 21:00 Dose: 25 mls/hr Lactated Ringer's (Ringers, Lactated) 1,000 mls @ 100 mls/hr IV ASDIRECTED [facility] Stop: 05/22/18 17:00 Last Admin: 05/22/18 11:26 Dose: 100 mls/hr Iopamidol (Isovue-300 (61%)) 100 ml IVPUSH ONETIME ONE Stop: 05/22/18 15:26 Last Admin: 05/22/18 15:41 Dose: 100 ml Lorazepam (Ativan) 1 mg IVPUSH ONETIME ONE Stop: 05/20/18 09:27 Last Admin: 05/20/18 10:16 Dose: 1 mg Magnesium Oxide (Magnesium Oxide) 800 mg GTUBE ONETIME ONE Stop: 05/20/18 12:01 Last Admin: 05/20/18 11:13 Dose: 800 mg Magnesium Sulfate (Pharmacy To Dose - Magnesium Replacement) 1 dose .XX ASDIRECTED [facility] Metoclopramide HCl (Reglan) 5 mg IVPUSH Q6H [facility] Last Admin: 05/18/18 12:25 Dose: 5 mg Metoclopramide HCl (Reglan) 10 mg IVPUSH Q6H [facility] Last Admin: 05/19/18 05:05 Dose: Not Given Metoprolol Tartrate (Lopressor) 5 mg IVPUSH Q4H PRN PRN Reason: Tachycardia Last Admin: 05/20/18 03:20 Dose: 5 mg Metoprolol Tartrate (Lopressor) 25 mg PO Q12H [facility] Last Admin: 05/20/18 20:20 Dose: 25 mg Metoprolol Tartrate (Lopressor) 25 mg PO ONETIME ONE Stop: 05/20/18 14:06 Last Admin: 05/20/18 14:13 Dose: 25 mg Midodrine (Midodrine) 5 mg PO TIDAC [facility] Stop: 05/18/18 07:01 Last Admin: 05/18/18 06:34 Dose: 5 mg Midodrine (Midodrine) 5 mg PO TIDAC [facility] Last Admin: 05/19/18 17:09 Dose: 5 mg Midodrine (Midodrine) 5 mg PO TIDAC [facility] Non-Formulary Medication (Lactose-Reduced Food/Fiber [Jevity 1.2 Ugo Liquid]) 260 ml GTUBE 5XDAY [facility] Last Admin: 05/17/18 11:31 Dose: Not Given Non-Formulary Medication (Water [Water]) 100 ml GTUBE TID [facility] Last Admin: 05/17/18 10:25 Dose: Not Given Potassium Chloride (Potassium Chloride Solution) 20 meq PO BID [facility] Last Admin: 05/16/18 20:52 Dose: 20 meq Potassium Chloride (Pharmacy To Dose - Potassium Replacement) 1 dose .XX ASDIRECTED [facility] Potassium Chloride (Potassium Chloride Solution) 20 meq PO BID [facility] Last Admin: 05/19/18 20:43 Dose: 20 meq Potassium Chloride (Potassium Chloride Solution) 40 meq PO BID [facility] Potassium Chloride (Klor-Con M20) 60 meq PO ONETIME ONE Stop: 05/20/18 09:01 Last Admin: 05/20/18 08:57 Dose: 60 meq Potassium Chloride (Potassium Chloride Solution) 40 meq PO BID [facility] Last Admin: 05/21/18 21:59 Dose: Not Given Vancomycin HCl (Pharmacy To Dose - Vancomycin) 0 dose .XX ASDIRECTED PRN PRN Reason: RX TO DOSE VANCOMYCIN - Exam Quality Assessment: Urine Catheter, DVT Prophylaxis General: No Acute Distress HEENT: Pupils Equal, Pupils Reactive Neck: Trachea Midline, No JVD Lungs: Normal Respiratory Effort, Decreased Breath Sounds, Rhonchi Cardiovascular: Regular Rate GI/Abdominal Exam: Normal Bowel Sounds, Soft, Non-Tender, No Organomegaly, No Distention (Female) Exam: Deferred Back Exam: Normal Inspection Extremities: Normal Inspection, Non-Tender, Normal Capillary Refill Skin: Warm Neurological: No New Focal Deficit Psy/Mental Status: Alert, Other - Problem List Review Problem List Initiated/Reviewed/Updated: Yes - My Orders Last 24 Hours: My Active Orders 05/22/18 17:00 Lactated Ringers [Ringers, Lactated] 1,000 ml IV ASDIRECTED 05/23/18 05:00 CBC WITH AUTO DIFF [HEME] DAILY LACTIC ACID [CHEM] DAILY 05/24/18 05:00 CBC WITH AUTO DIFF [HEME] DAILY LACTIC ACID [CHEM] DAILY 05/25/18 05:00 CBC WITH AUTO DIFF [HEME] DAILY LACTIC ACID [CHEM] DAILY 05/26/18 05:00 CBC WITH AUTO DIFF [HEME] DAILY LACTIC ACID [CHEM] DAILY - Plan Plan:: Assessment/Plan: Acute: UTI - 2/2 Urinary retention from neurogenic bladder - UA is pos for E. Faecalis-sensitive to Quinolone and Gram Pos Coccobacillus (normal dereck per microbiology); Added Meropenem due to increasing WBC and persistently elevated CRP - IV Antibiotics as above for coverage Hypoalbuminemia - Albumin 1.2 - Reason why she has significant peripheral edema - Dietary consult; receiving more protein Hypomagnesemia - MG 1.7--> 1.7 - Replete and monitor Sinus Tachycardia, Improved - HR in the teens - This could be her way of telling us she is in pain or in some kind of discomfort - PRN Ativan and Pain Medication - Responded better with CCB; Now on Cardizem - Thyroid Panel l FT4 jamison; TSH slightly elevated End of Life Care - Again we spoke to mother and sister at bedside; they understand "comfort measures" but they want treatment of Violette's infection Resolved: S/p Anemia - Acute on Chronic - Hgb of 8.5 and Hct 29; baseline is 11- (February 2018)--> 6.9--> 10.8 S/ p 2 units of PRBC transfusion - Stool occult study-pending; she has not had a bowel movement - Iron Panel: shows Anemia of Chronic Disease - Asked earlier if she wants blood transfusion; she said no. But changed her mind when her mom was at bedside. S/p Constipation/Ileus - Has not had a bowel since the - She is on narcotics and plenty of anticholinergics - KUB r/o SBO - Hold tube feeding for now - Rectal suppository BID until bowel movement; consider lactulose or magnesium--> had 3 bowel movements over night - Prokinetic agent since she is bedbound and immobile; d/c prokinetic agent and resume tube feeding S/p Atelectasis/Increased Density Right Lung Base (likely chronic) - Carries a hx/o Dysphagia - Cannot r/o Aspiration Syndrome - Continue IV Zosyn and Levaquin; She is on H2B for aspiration prophylaxis - She is unable to use IS S/p Bacteremia w/o Hypotension - 2/2 UTI due to neurogenic bladder from MS - Carries a hx/o Multiple Urine and Blood Infections in the past - Risk Factor: Advanced MS, AMS, Recurrent UTI and Aspiration Syndrome 2/2 Dysphagia - Fever of 39 C; WBC of 14.22, HR of 119-128, BP of 92/34, 100/48, 101/58 mmHg, RR 24-33 - LA 6.2 --> 5.3 --> 5.6--> 3.1-->2.2; received a total of 3L of NS overnight plus 1L NS at 125 cc/hr but remained hypotensive overnight - Procalcitonin 5.44 (high risk progression to severe sepsis); WBC 28.6--> 23.78; CRP 29.7-->31.4 - 1 set of bottle positive for Staph Coagulase Neg (possible contamination); repeat blood culture -pending - Discontinue Solucortef 100 mg IV Q6H; She is now off Levophed drip - High pseudomonal risk due to recent multiple antibiotic use: Azithromycin -, Cipro 05/10-, and Bactrim 05/13- - Continue IV Levaquin and discontinue IV Zosyn and Vancomycin; hopefully we can de-escalate tomorrow - Discontinue Midodrine 5 mg po TIDAC and Florinef 0.1 mg po BID for Orthostatic/Autonomic Dysfunction - Repeat blood culture is negative S/p Hypokalemia - K 3.0-->3.1--> 3.8 - 2/2 diuretic use - Replete and monitor Chronic: Dysphagia Urinary Retention Back Pain OA Spasms Osteoporosis CVA/TIA MS Anemia of Chronic Disease Seizure Disorder Hx/o DVT/VTE Alzheimer's Disease DM2, BS controlled Anxiety Depression Plan: She looks more comfortable today. Educated staff to make sure she is comfortable. Anxiety, Discomfort and Pain could be her way to communicate via rapid heart rate or fast breathing. Routine AM Labs Increase IVF rate due to low urine output Aspiration/Seizure/Fall Precaution DVT/GI PPx: Lovenox SubQ/H2B Additional orders as above SW/CM for D/c planning DNR/DNI/Comfort Measures LOS > 96hrs due to longer requirement for treatment; WBC going up, persistent tachycardia and CRP level.
[2018-05-22] MEDS ORDERED: Piperacillin/Tazobactam 4.5 GM in Sodium Chloride 0.9% 100 ML IV ONE (20:00)
[2018-05-22] MEDS: Multivitamins,Therapeutic Tab SCH (20:19)
[2018-05-22] MEDS: Lactated Ringers 1,000 ML IV SCH (20:40)
[2018-05-23] MEDS: Lactated Ringers 1,000 ML IV SCH (03:13)
[2018-05-23] MEDS: Meropenem Premix 500 MG in Premix Bag 1 BAG IV SCH ×3 (03:13→14:19)
[2018-05-23] MEDS: Acetaminophen/oxyCODONE 325-5 MG Tab PO PRN (03:58)
[2018-05-23] MEDS: Piperacillin/Tazobactam 4.5 GM in Sodium Chloride 0.9% 100 ML IV SCH ×3 (03:58→21:13)
[2018-05-23] MEDS: Metoclopramide 10 MG/2 ML SDV IVPUSH SCH ×4 (03:59→22:36)
[2018-05-23] MEDS: hydrALAZINE 20 MG/ML SDV IVPUSH PRN (04:56)
[2018-05-23] MEDS: Furosemide 20 MG/2 ML VIAL IVPUSH SCH ×2 (05:07→14:19)
[2018-05-23] MEDS: Hydrochlorothiazide 12.5 MG Cap PO SCH (05:07)
[2018-05-23] MEDS: Diltiazem 50 MG/10 ML SDV IVPUSH PRN (05:37)
[2018-05-23] MEDS: LORazepam 2 MG/ML SDV IVPUSH PRN (06:22)
--- NOTE | 2018-05-23 07:53 | PCM.SN ---
- Free Text/Narrative Note: Start 729 End 739 Called to ICU regarding a patient with difficult venous accessibility. The patients left forearm cleansed with chlorahexadine. 1% buffered lido used to make a skin wheel. A 20ga 1.88" IV catheter placed in the forearm under ultrasound guidance x1 attempt. Good blood return. 10ml of blood aspirated from IV catheter for the lab. Flushes well. Secured with sterile tegaderm and tape. Patient tolerated procedure well. Josh Marie
[2018-05-23] MEDS: Famotidine 20 MG Tab PO SCH (08:06)
[2018-05-23] MEDS: Saccharomyces Boulardii (Probiotic) 250 MG Cap PO SCH ×3 (08:06→21:16)
[2018-05-23] MEDS: Magnesium Oxide 400 MG Tab GTUBE SCH ×2 (08:06→21:17)
[2018-05-23] MEDS: Cholecalciferol (Vitamin D3) 1,000 Unit Tab GTUBE SCH (08:06)
[2018-05-23] MEDS: Diltiazem 240 MG Cap.ER PO SCH (08:07)
[2018-05-23] MEDS: tiZANidine 4 MG Tab GTUBE SCH ×3 (08:07→21:17)
[2018-05-23] MEDS: FLUoxetine 10 MG Cap GTUBE SCH (08:07)
[2018-05-23] MEDS: LORazepam 0.5 MG Tab GTUBE SCH (08:07)
[2018-05-23] MEDS: Potassium Chloride 10% 20 MEQ/15 ML Soln 15 ML UD Cup PO SCH ×2 (08:08→21:14)
[2018-05-23] MEDS: levETIRAcetam Soln 500 MG/5 ML Cup GTUBE SCH ×2 (08:08→21:14)
[2018-05-23] MEDS: Enoxaparin 40 MG/0.4 ML Syringe SUBCUT SCH (08:08)
[2018-05-23] MEDS: Nystatin Crm 30 GM Tube TOP SCH ×2 (08:09→21:19)
[2018-05-23] MEDS ORDERED: Iopamidol 612 MG/ML 100 ML Bottle IVPUSH ONE (09:41)
[2018-05-23] MEDS ORDERED: Sodium Chloride 0.9% 10 ML Syringe FLUSH PRN (09:41)
--- NOTE | 2018-05-23 10:53 | CT ---
CT abdomen and pelvis Technique: Multiple axial sections were obtained from above the dome of the diaphragm inferiorly through the pubic symphysis. Intravenous contrast was utilized. No oral contrast is seen. Findings: Right sided pleural effusion is seen. Ascites is identified within the abdomen. Focal fluid is around the lateral margin of the right sided liver, this fluid may be loculated. Liver appears somewhat compressed by this fluid. Multiple abnormalities are seen within the gallbladder most likely due to multiple gallstones. Right kidney shows severe hydronephrosis. Fluid collections are seen loculated off the right kidney presumably due to forniceal rupture. Multiple calcifications are seen within the kidney and outside the kidney. Right ureter is markedly dilated which is caused by a distal large obstructing stone measuring 1.3 cm. This occurs proximal to the UVJ. [place] catheter is noted within the bladder. Diffuse body wall edema is noted. Mildly prominent small bowel loops are seen containing fluid which is most likely due to mild ileus or due to obstipation. There is large amount of stool being seen within the right colon and transverse colon with lesser stool within the descending colon. Left kidney shows no hydronephrosis or mass. Adrenal glands are unremarkable. Pancreas is normal. Aorta shows atherosclerotic change without aneurysm. No retroperitoneal adenopathy or mesenteric abnormalities are seen. Delayed images show contrast within the left ureter. No contrast excretion into the right ureter is seen. Gastrostomy tube is noted. Impression: 1. Ascites within the abdomen and pelvis. Possible loculated ascites lateral to the right side of the liver appearing to cause some compression of the liver. 2. Numerous gallstones are felt to be present within the gallbladder. 3. Very abnormal right kidney with multiple loculated areas of fluid around the kidney as well as multiple calcifications within and around the right kidney. Markedly dilated right ureter is seen with large distal obstructing stone measuring 1.3 cm. Findings highly suggestive of forniceal rupture within the kidney from this obstructing stone causing the fluid around the kidney and possibly the ascites. 4. Diffuse body wall edema. 5. Mildly prominent fluid-filled loops of small bowel either due to ileus or possibly obstipation as there is increased stool within the right and transverse colon. Diagnostic code #3
[2018-05-23] MEDS ORDERED: Levalbuterol HCl 1.25 MG/3 ML Neb NEB SCH (13:00)
[2018-05-23] MEDS: Levalbuterol HCl 1.25 MG/3 ML Neb NEB SCH ×2 (15:26→22:23)
--- NOTE | 2018-05-23 17:30 | PCM.CONS ---
H&P History of Present Illness - General Date of Service: 05/23/18 Admit Problem/Dx: Admission Diagnosis/Problem Admission Diagnosis/Problem Urosepsis Source of Information: Old Records, Provider History Limitations: Reports: Altered Mental Status - History of Present Illness Initial Comments - Free Text/Narative: 57 yo female admitted on 05/16/2018, ICU day #8, h/o advanced MS, with urosepsis. Patient has a history of dysphagia with inability to take anything per oral. She has a G-tube through which she is receiving tube feeds. Had residuals from tube feeds in the 400's yesterday, so tube feeds have been held. No vomiting. Last BM was yesterday. CT scan was obtained this morning, which was concerning for ileus. I was consulted to evaluate the patient's ileus. - Related Data Allergies/Adverse Reactions: Allergies Allergy/AdvReac Type Severity Reaction Status Date / Time No Known Allergies Allergy Verified 03/05/18 14:24 Home Medications: Home Meds tiZANidine HCl [Zanaflex] 2 mg GTUBE TID 04/06/14 [History] levETIRAcetam [Levetiracetam] 10 ml GTUBE BID 12/23/16 [History] Acetaminophen 650 mg GTUBE Q4H PRN 03/05/18 [History] LORazepam [Ativan] 0.25 mg GTUBE DAILY 03/05/18 [History] Acetaminophen/oxyCODONE [Percocet 325-5 MG] 1 tab PO Q4H PRN #45 tablet [Rx] Atropine 1% [Atropine 1% Ophth Soln] 2 drop PO Q4HR PRN 05/16/18 [History] Cholecalciferol (Vitamin D3) [Vitamin D3] 2,000 unit GTUBE DAILY 05/16/18 [ History] FA/Lycopene/Lut/MV,Ca,Iron,Min [Centrum] 1 tab GTUBE BEDTIME 05/16/18 [History] FLUoxetine [PROzac] 10 mg GTUBE DAILY 05/16/18 [History] Lactose-Reduced Food/Fiber [Jevity 1.2 Ugo Liquid] 260 ml GTUBE 5XDAY 05/16/18 [ History] Lactulose 15 ml GTUBE DAILY PRN 05/16/18 [History] Magnesium Oxide [Magnesium] 400 mg GTUBE BID 05/16/18 [History] Morphine [Morphine 10 MG/0.5 ML Oral Syringe] 2 mg GTUBE Q2HR PRN 05/16/18 [ History] Nystatin 15 gm TP BID 05/16/18 [History] Ondansetron [Zofran] 8 mg GTUBE Q6H PRN 05/16/18 [History] Potassium Chloride [Potassium Chloride Solution] 15 ml PO BID 05/16/18 [History] Sennosides/Docusate Sodium [Senna Plus Tablet] 2 each GTUBE BID 05/16/18 [ History] Sulfamethoxazole/Trimethoprim [Sulfatrim 800-160 mg/20 ml Jayshree] 20 ml PO BID [History] Water 100 ml GTUBE TID 05/16/18 [History] Past Medical History HEENT History: Reports: Other (See Below) Other HEENT History: dysphagia,aphasia Cardiovascular History: Reports: Blood Clots/VTE/DVT Other Cardiovascular History: hypomagnesemia, hypokalemia Respiratory History: Reports: Pneumonia, Recurrent Gastrointestinal History: Reports: Other (See Below) Other Gastrointestinal History: kyle-head tube in place Genitourinary History: Reports: Acute Renal Failure, Retention, Urinary, UTI, Recurrent Other Genitourinary History: chronic kidney disease Musculoskeletal History: Reports: Back Pain, Chronic, Osteoarthritis, Osteoporosis Other Musculoskeletal History: MS Neurological History: Reports: Alzheimers Disease, CVA, MS, Seizure, TIA Other Neuro History: encephalopathy, insomnia Psychiatric History: Reports: Anxiety, Depression Other Psychiatric History: insomnia, Endocrine/Metabolic History: Reports: Diabetes, Type II Other Endocrine/Metabolic History: disorders of magnesium metabolism, anemia, hypercalcemia, hypokalemia Hematologic History: Reports: Anemia Other Hematologic History: hyponmagnesemia, septic shock Other Dermatologic History: candidasis, follicular disorder - Infectious Disease History Infectious Disease History: Reports: MRSA Other Infectious Disease History: not on NH paperwork, patient unable to answer - Past Surgical History Head Surgeries/Procedures: Reports: None Other Musculoskeletal Surgeries/Procedures:: contractures of muscles Social & Family History - Family History Family Medical History: Unobtainable - Tobacco Use Smoking Status *Q: Unknown Ever Smoked - Caffeine Use Caffeine Use: Reports: None - Recreational Drug Use Recreational Drug Use: No - Living Situation & Occupation Living situation: Reports: Extended Care Facility ([facility]) Occupation: Disabled H&P Review of Systems - Review of Systems: Review Of Systems: Unable To Obtain Exam - Exam Exam: See Below - Vital Signs Vital Signs: Last Vital Signs Temp 36.3 C 05/23/18 12:00 Pulse 85 05/23/18 12:00 Resp 20 05/23/18 12:00 BP 122/71 05/23/18 12:00 Pulse Ox 96 05/23/18 15:26 Weight: 78.154 kg - Exam GI/Abdominal Exam: Non-Tender, Distended, Abnormal Bowel Sounds (hypoactive) - Patient Data Lab Results Last 24 hrs: Laboratory Results - last 24 hr 05/23/18 05/23/18 05/23/18 Range/Units 06:33 07:15 07:35 WBC 21.82 H (3.98-10.04) K/mm3 RBC 4.90 (3.98-5.22) M/mm3 Hgb 12.5 (11.2-15.7) gm/L Hct 41.8 (34.1-44.9) % MCV 85.3 (79.4-94.8) fl MCH 25.5 L (25.6-32.2) pg MCHC 29.9 L (32.2-35.5) g/dl RDW Std Deviation 59.7 H (36.4-46.3) fL Plt Count 460 H (182-369) K/mm3 MPV 10.1 (9.4-12.3) fl Neut % (Auto) 74.8 H (34.0-71.1) % Lymph % (Auto) 15.2 L (19.3-51.7) % Chase % (Auto) 6.2 (4.7-12.5) % Eos % (Auto) 1.5 (0.7-5.8) Baso % (Auto) 0.2 (0.1-1.2) % Neut # (Auto) 16.32 H (1.56-6.13) K/mm3 Lymph # (Auto) 3.32 (1.18-3.74) K/mm3 Chase # (Auto) 1.35 H (0.24-0.36) K/mm3 Eos # (Auto) 0.32 (0.04-0.36) K/mm3 Baso # (Auto) 0.05 (0.01-0.08) K/mm3 Manual Slide Review Abnormal smear Puncture Site ABG pH (7.35-7.45) ABG pCO2 (35.0-45.0) mmHg ABG pO2 (80.0-100.0) mmHg ABG HCO3 (22.0-26.0) meq/L ABG O2 Saturation (96.0-97.0) % ABG Base Excess (-2-2.0) Danny Test A-a Gradient mmHg O2 Delivery Device Oxygen Flow Rate FiO2 (21.00-100.00) % Sodium 143 (136-145) mEq/L Potassium 4.4 (3.5-5.1) mEq/L Chloride 106 (98-107) mEq/L Carbon Dioxide 27 (21-32) mEq/L Anion Gap 14.4 (5-15) BUN 32 H (7-18) mg/dL Creatinine 0.9 (0.55-1.02) mg/dL Est Cr Clr Drug Dosing 63.55 mL/min Estimated GFR (MDRD) > 60 (>60) mL/min BUN/Creatinine Ratio 35.6 H (14-18) Glucose 122 H (74-106) mg/dL Lactic Acid 3.0 H (0.4-2.0) mmol/L Calcium 11.6 H (8.5-10.1) mg/dL Magnesium 2.1 (1.8-2.4) mg/dl Total Bilirubin (0.2-1.0) mg/dL C-Reactive Protein 11.7 H* (<1.0) mg/dL Amylase (25-115) U/L Lipase (73-393) U/L 05/23/18 05/23/18 Range/Units 07:35 09:58 WBC (3.98-10.04) K/mm3 RBC (3.98-5.22) M/mm3 Hgb (11.2-15.7) gm/L Hct (34.1-44.9) % MCV (79.4-94.8) fl MCH (25.6-32.2) pg MCHC (32.2-35.5) g/dl RDW Std Deviation (36.4-46.3) fL Plt Count (182-369) K/mm3 MPV (9.4-12.3) fl Neut % (Auto) (34.0-71.1) % Lymph % (Auto) (19.3-51.7) % Chase % (Auto) (4.7-12.5) % Eos % (Auto) (0.7-5.8) Baso % (Auto) (0.1-1.2) % Neut # (Auto) (1.56-6.13) K/mm3 Lymph # (Auto) (1.18-3.74) K/mm3 Chase # (Auto) (0.24-0.36) K/mm3 Eos # (Auto) (0.04-0.36) K/mm3 Baso # (Auto) (0.01-0.08) K/mm3 Manual Slide Review Puncture Site Lt radial ABG pH 7.47 H (7.35-7.45) ABG pCO2 40.0 (35.0-45.0) mmHg ABG pO2 63.0 L (80.0-100.0) mmHg ABG HCO3 29.0 H (22.0-26.0) meq/L ABG O2 Saturation 92.8 L (96.0-97.0) % ABG Base Excess 5.3 H (-2-2.0) Danny Test Positive A-a Gradient 41 mmHg O2 Delivery Device Nasal cannula Oxygen Flow Rate 2.0 FiO2 24.00 (21.00-100.00) % Sodium (136-145) mEq/L Potassium (3.5-5.1) mEq/L Chloride (98-107) mEq/L Carbon Dioxide (21-32) mEq/L Anion Gap (5-15) BUN (7-18) mg/dL Creatinine (0.55-1.02) mg/dL Est Cr Clr Drug Dosing mL/min Estimated GFR (MDRD) (>60) mL/min BUN/Creatinine Ratio (14-18) Glucose (74-106) mg/dL Lactic Acid (0.4-2.0) mmol/L Calcium (8.5-10.1) mg/dL Magnesium (1.8-2.4) mg/dl Total Bilirubin 0.4 (0.2-1.0) mg/dL C-Reactive Protein (<1.0) mg/dL Amylase 41 (25-115) U/L Lipase 137 (73-393) U/L Result Diagrams: 05/23/18 06:33 05/23/18 07:15 Kyle Results Last 24 hrs: Microbiology 05/19/18 06:03 Aerobic Blood Culture - Preliminary Blood - Venous - Lab Draw NO GROWTH AFTER 4 DAYS Anaerobic Blood Culture - Preliminary NO GROWTH AFTER 4 DAYS 05/19/18 15:50 Aerobic Blood Culture - Preliminary Blood - Venous NO GROWTH AFTER 4 DAYS Anaerobic Blood Culture - Final 05/16/18 07:15 Aerobic Blood Culture - Final Blood - Venous - Lab Draw NO GROWTH AFTER 7 DAYS Anaerobic Blood Culture - Final 05/16/18 07:28 Aerobic Blood Culture - Final Blood - Venous NO GROWTH AFTER 7 DAYS Anaerobic Blood Culture - Final Staphylococcus Coagulase Neg Imaging Impressions Last 24 hrs: CT abdomen and pelvis Technique: Multiple axial sections were obtained from above the dome of the diaphragm inferiorly through the pubic symphysis. Intravenous contrast was utilized. No oral contrast is seen. Findings: Right sided pleural effusion is seen. Ascites is identified within the abdomen. Focal fluid is around the lateral margin of the right sided liver, this fluid may be loculated. Liver appears somewhat compressed by this fluid. Multiple abnormalities are seen within the gallbladder most likely due to multiple gallstones. Right kidney shows severe hydronephrosis. Fluid collections are seen loculated off the right kidney presumably due to forniceal rupture. Multiple calcifications are seen within the kidney and outside the kidney. Right ureter is markedly dilated which is caused by a distal large obstructing stone measuring 1.3 cm. This occurs proximal to the UVJ. [place] catheter is noted within the bladder. Diffuse body wall edema is noted. Mildly prominent small bowel loops are seen containing fluid which is most likely due to mild ileus or due to obstipation. There is large amount of stool being seen within the right colon and transverse colon with lesser stool within the descending colon. Left kidney shows no hydronephrosis or mass. Adrenal glands are unremarkable. Pancreas is normal. Aorta shows atherosclerotic change without aneurysm. No retroperitoneal adenopathy or mesenteric abnormalities are seen. Delayed images show contrast within the left ureter. No contrast excretion into the right ureter is seen. Gastrostomy tube is noted. Impression: 1. Ascites within the abdomen and pelvis. Possible loculated ascites lateral to the right side of the liver appearing to cause some compression of the liver. 2. Numerous gallstones are felt to be present within the gallbladder. 3. Very abnormal right kidney with multiple loculated areas of fluid around the kidney as well as multiple calcifications within and around the right kidney. Markedly dilated right ureter is seen with large distal obstructing stone measuring 1.3 cm. Findings highly suggestive of forniceal rupture within the kidney from this obstructing stone causing the fluid around the kidney and possibly the ascites. 4. Diffuse body wall edema. 5. Mildly prominent fluid-filled loops of small bowel either due to ileus or possibly obstipation as there is increased stool within the right and transverse colon. Diagnostic code #3 Dictated by: Walter Sanders MD 05/23/18 at 1051 Consult PN Assessment/Plan Procedures: Procedures AIRWAY INHALATION TREATMENT (06/16/16) ASSAY OF BLOOD OSMOLALITY (08/05/14) ASSAY OF CK (CPK) (04/06/14) ASSAY OF LACTIC ACID (03/05/18) ASSAY OF MAGNESIUM (03/05/18) ASSAY OF NATRIURETIC PEPTIDE (03/05/18) ASSAY OF PHOSPHORUS (08/05/14) ASSAY OF TROPONIN QUANT (09/07/16) ASSAY OF VANCOMYCIN (03/05/18) BL SMEAR W/DIFF WBC COUNT (03/05/18) BLOOD CULTURE FOR BACTERIA (03/05/18) BLOOD GASES ANY COMBINATION (03/04/18) C-REACTIVE PROTEIN (03/05/18) CHANGE GASTROSTOMY TUBE (09/20/17) CHEST X-RAY 1 VIEW FRONTAL (12/23/16) CINE/VID X-RAY THROAT/ESOPH (08/17/16) COMPLETE CBC AUTOMATED (03/05/18) COMPLETE CBC W/AUTO DIFF WBC (03/05/18) COMPREHEN METABOLIC PANEL (03/05/18) CREATINE MB FRACTION (09/07/16) CT ANGIOGRAPHY CHEST (03/04/18) CT HEAD/BRAIN W/O DYE (06/16/16) CULTURE AEROBIC IDENTIFY (03/04/18) CULTURE ANAEROBE IDENT EACH (03/05/18) VIN SUBQ TISSUE 20 SQ CM/< (03/06/14) DRUG SCRN KIRK LEVETIRACETAM (06/16/16) ELECTROCARDIOGRAM TRACING (03/05/18) EMERGENCY DEPT VISIT (03/05/18) EMERGENCY DEPT VISIT (09/20/17) EMERGENCY DEPT VISIT (04/09/17) EMERGENCY DEPT VISIT (08/05/14) EMERGENCY DEPT VISIT (06/30/14) EMERGENCY DEPT VISIT (03/12/14) EVALUATE PT USE OF INHALER (06/16/16) EVALUATE SWALLOWING FUNCTION (06/16/16) FIBRIN DEGRADATION QUANT (03/04/18) GLUCOSE BLOOD TEST (03/05/18) GLYCOSYLATED HEMOGLOBIN TEST (03/05/18) HEMATOCRIT (09/07/16) HEMOGLOBIN (09/07/16) HYDRATE IV INFUSION ADD-ON (03/04/18) HYDRATION IV INFUSION INIT (03/12/14) INFLUENZA A/B AG IA (03/12/14) INFLUENZA ASSAY W/OPTIC (03/04/18) INSERT BLADDER CATHETER (03/12/14) INSERT NON-TUNNEL CV CATH (09/07/16) INSERT TEMP BLADDER CATH (09/07/16) METABOLIC PANEL TOTAL CA (03/05/18) MICROBE SUSCEPTIBLE DIFFUSE (03/05/18) MICROBE SUSCEPTIBLE DISK (03/04/18) MICROBE SUSCEPTIBLE KYLE (03/04/18) MOD SED SAME PHYS/QHP 5/>YRS (09/07/16) MOD SED SAME PHYS/QHP EA (09/07/16) MOTION FLUOROSCOPY/SWALLOW (08/17/16) MR-STAPH DNA AMP PROBE (03/05/18) OCCULT BLD FECES 1-3 TESTS (09/07/16) ORAL FUNCTION THERAPY (06/16/16) OT EVAL HIGH COMPLEX 60 MIN (03/05/18) OT EVALUATION (07/21/15) PROTHROMBIN TIME (03/05/18) PT EVAL LOW COMPLEX 20 MIN (03/05/18) PT EVALUATION (07/21/15) RBC SED RATE AUTOMATED (03/05/18) ROUTINE VENIPUNCTURE (03/05/18) STREP A AG IA (04/09/17) THER/DIAG CONCURRENT INF (09/07/16) THER/PROPH/DIAG INJ IV PUSH (06/16/16) THER/PROPH/DIAG IV INF ADDON (03/05/18) THER/PROPH/DIAG IV INF INIT (03/05/18) THROMBOPLASTIN TIME PARTIAL (03/05/18) TOTAL CORTISOL (09/07/16) TX/PRO/DX INJ NEW DRUG ADDON (09/07/16) TX/PRO/DX INJ SAME DRUG DESK PENS ASSEM[employer]ER (09/07/16) TX/PROPH/DG ADDL SEQ IV INF (09/07/16) URINALYSIS AUTO W/SCOPE (04/08/18) URINE BACTERIA CULTURE (03/04/18) URINE CULTURE/COLONY COUNT (04/08/18) WITHDRAWAL OF ARTERIAL BLOOD (03/04/18) X-RAY EXAM CHEST 1 VIEW (03/05/18) X-RAY EXAM OF ABDOMEN (09/07/16) Problem List Initiated/Reviewed/Updated: Yes Plan: 57 yo female, h/o multiple medical problems, including dysphagia, urinary retention, advanced MS, anemia, anxiety, depression, ICU day #8 admitted with urosepsis. I was consulted to evaluate for ileus and high residuals through G- tube. CT scan images and radiology report were reviewed. Mild ileus noted, but more importantly, the patient has a 1.3 cm ureteral stone in the distal ureter near the UVJ, with ureteral dilation and fluid around the kidney, concerning for forniceal rupture. Ascites also noted. Obstructing ureteral stone is associated with UTI. Hemodynamically stable. - Recommend urology evaluation. - Case d/w Dr. Quiñones, Urologist at [facility] in [place], who recommends IR placement of nephrostomy tube. - Further management will require transfer to higher level of care. - Situation was discussed with the patient's daughter, who agrees to transfer. - If patient has any vomiting, may consider venting the G-tube (open to gravity) . - General Surgery will sign off at this time. Please call Dr. Rendon tomyolanda morning if needed. Case was d/w Dr. Winston, hospitalist, who plans to arrange transfer to [place] tomorrow AM. Glenroy Donato M.D (Siri)., F.A.C.S. General Surgery
--- NOTE | 2018-05-23 17:31 | PCM.PN ---
- General Info Date of Service: 05/23/18 Subjective Update: Clarified ATBs, CXR daily for PNA. Hold TF has had high residuals, assessment for Ileus with CT of abd/pelvis; gen surg consult after imaging is complete. Functional Status: Reports: Tolerating Diet (TFs held), Ambulating (non ambulatory) - Review of Systems General: Reports: No Symptoms HEENT: Reports: No Symptoms Pulmonary: Reports: No Symptoms Cardiovascular: Reports: No Symptoms Gastrointestinal: Reports: No Symptoms Genitourinary: Reports: No Symptoms Musculoskeletal: Reports: No Symptoms Skin: Reports: No Symptoms Neurological: Reports: No Symptoms Psychiatric: Reports: No Symptoms - Patient Data Vitals - Most Recent: Last Vital Signs Temp 36.3 C 05/23/18 12:00 Pulse 85 05/23/18 12:00 Resp 20 05/23/18 12:00 BP 122/71 05/23/18 12:00 Pulse Ox 96 05/23/18 15:26 Weight - Most Recent: 78.154 kg I&O - Last 24 Hours: Intake & Output 05/23/18 05/23/18 05/23/18 06:59 14:59 22:59 Intake Total 797 160 925 Output Total 470 955 350 Balance 327 -795 575 Lab Results Last 24 Hours: Laboratory Results - last 24 hr 05/23/18 05/23/18 05/23/18 Range/Units 06:33 07:15 07:35 WBC 21.82 H (3.98-10.04) K/mm3 RBC 4.90 (3.98-5.22) M/mm3 Hgb 12.5 (11.2-15.7) gm/L Hct 41.8 (34.1-44.9) % MCV 85.3 (79.4-94.8) fl MCH 25.5 L (25.6-32.2) pg MCHC 29.9 L (32.2-35.5) g/dl RDW Std Deviation 59.7 H (36.4-46.3) fL Plt Count 460 H (182-369) K/mm3 MPV 10.1 (9.4-12.3) fl Neut % (Auto) 74.8 H (34.0-71.1) % Lymph % (Auto) 15.2 L (19.3-51.7) % [place] % (Auto) 6.2 (4.7-12.5) % Eos % (Auto) 1.5 (0.7-5.8) Baso % (Auto) 0.2 (0.1-1.2) % Neut # (Auto) 16.32 H (1.56-6.13) K/mm3 Lymph # (Auto) 3.32 (1.18-3.74) K/mm3 [place] # (Auto) 1.35 H (0.24-0.36) K/mm3 Eos # (Auto) 0.32 (0.04-0.36) K/mm3 Baso # (Auto) 0.05 (0.01-0.08) K/mm3 Manual Slide Review Abnormal smear Puncture Site ABG pH (7.35-7.45) ABG pCO2 (35.0-45.0) mmHg ABG pO2 (80.0-100.0) mmHg ABG HCO3 (22.0-26.0) meq/L ABG O2 Saturation (96.0-97.0) % ABG Base Excess (-2-2.0) Danny Test A-a Gradient mmHg O2 Delivery Device Oxygen Flow Rate FiO2 (21.00-100.00) % Sodium 143 (136-145) mEq/L Potassium 4.4 (3.5-5.1) mEq/L Chloride 106 (98-107) mEq/L Carbon Dioxide 27 (21-32) mEq/L Anion Gap 14.4 (5-15) BUN 32 H (7-18) mg/dL Creatinine 0.9 (0.55-1.02) mg/dL Est Cr Clr Drug Dosing 63.55 mL/min Estimated GFR (MDRD) > 60 (>60) mL/min BUN/Creatinine Ratio 35.6 H (14-18) Glucose 122 H (74-106) mg/dL Lactic Acid 3.0 H (0.4-2.0) mmol/L Calcium 11.6 H (8.5-10.1) mg/dL Magnesium 2.1 (1.8-2.4) mg/dl Total Bilirubin (0.2-1.0) mg/dL C-Reactive Protein 11.7 H* (<1.0) mg/dL Amylase (25-115) U/L Lipase (73-393) U/L 05/23/18 05/23/18 Range/Units 07:35 09:58 WBC (3.98-10.04) K/mm3 RBC (3.98-5.22) M/mm3 Hgb (11.2-15.7) gm/L Hct (34.1-44.9) % MCV (79.4-94.8) fl MCH (25.6-32.2) pg MCHC (32.2-35.5) g/dl RDW Std Deviation (36.4-46.3) fL Plt Count (182-369) K/mm3 MPV (9.4-12.3) fl Neut % (Auto) (34.0-71.1) % Lymph % (Auto) (19.3-51.7) % [place] % (Auto) (4.7-12.5) % Eos % (Auto) (0.7-5.8) Baso % (Auto) (0.1-1.2) % Neut # (Auto) (1.56-6.13) K/mm3 Lymph # (Auto) (1.18-3.74) K/mm3 [place] # (Auto) (0.24-0.36) K/mm3 Eos # (Auto) (0.04-0.36) K/mm3 Baso # (Auto) (0.01-0.08) K/mm3 Manual Slide Review Puncture Site Lt radial ABG pH 7.47 H (7.35-7.45) ABG pCO2 40.0 (35.0-45.0) mmHg ABG pO2 63.0 L (80.0-100.0) mmHg ABG HCO3 29.0 H (22.0-26.0) meq/L ABG O2 Saturation 92.8 L (96.0-97.0) % ABG Base Excess 5.3 H (-2-2.0) Danny Test Positive A-a Gradient 41 mmHg O2 Delivery Device Nasal cannula Oxygen Flow Rate 2.0 FiO2 24.00 (21.00-100.00) % Sodium (136-145) mEq/L Potassium (3.5-5.1) mEq/L Chloride (98-107) mEq/L Carbon Dioxide (21-32) mEq/L Anion Gap (5-15) BUN (7-18) mg/dL Creatinine (0.55-1.02) mg/dL Est Cr Clr Drug Dosing mL/min Estimated GFR (MDRD) (>60) mL/min BUN/Creatinine Ratio (14-18) Glucose (74-106) mg/dL Lactic Acid (0.4-2.0) mmol/L Calcium (8.5-10.1) mg/dL Magnesium (1.8-2.4) mg/dl Total Bilirubin 0.4 (0.2-1.0) mg/dL C-Reactive Protein (<1.0) mg/dL Amylase 41 (25-115) U/L Lipase 137 (73-393) U/L Peter Results Last 24 Hours: Microbiology 05/19/18 06:03 Aerobic Blood Culture - Preliminary Blood - Venous - Lab Draw NO GROWTH AFTER 4 DAYS Anaerobic Blood Culture - Preliminary NO GROWTH AFTER 4 DAYS 05/19/18 15:50 Aerobic Blood Culture - Preliminary Blood - Venous NO GROWTH AFTER 4 DAYS Anaerobic Blood Culture - Final 05/16/18 07:15 Aerobic Blood Culture - Final Blood - Venous - Lab Draw NO GROWTH AFTER 7 DAYS Anaerobic Blood Culture - Final 05/16/18 07:28 Aerobic Blood Culture - Final Blood - Venous NO GROWTH AFTER 7 DAYS Anaerobic Blood Culture - Final Staphylococcus Coagulase Neg Med Orders - Current: Current Medications Acetaminophen (Tylenol) 650 mg GTUBE Q4H PRN PRN Reason: Pain/Fever Last Admin: 05/17/18 00:46 Dose: 650 mg Atropine Sulfate (Atropine 1% Ophth Soln) 0 ml SL Q4H PRN PRN Reason: extra secretions Bisacodyl (Dulcolax) 10 mg RECTAL BID PRN PRN Reason: Constipation Last Admin: 05/22/18 15:50 Dose: 10 mg Cholecalciferol (Vitamin D3) 2,000 units GTUBE DAILY [facility] Last Admin: 05/23/18 08:06 Dose: 2,000 units Diltiazem HCl (Cardizem) 10 mg IVPUSH Q4HR PRN PRN Reason: Tachycardia Last Admin: 05/23/18 05:37 Dose: 10 mg Diltiazem HCl (Dilacor Xr) 240 mg PO DAILY [facility] Last Admin: 05/23/18 08:07 Dose: 240 mg Enoxaparin Sodium (Lovenox) 40 mg SUBCUT DAILY [facility] Last Admin: 05/23/18 08:08 Dose: 40 mg Famotidine (Pepcid) 20 mg PO BID [facility] Last Admin: 05/23/18 08:06 Dose: 20 mg Fluoxetine HCl (Prozac) 10 mg GTUBE DAILY [facility] Last Admin: 05/23/18 08:07 Dose: 10 mg Hydralazine HCl (Apresoline) 20 mg IVPUSH Q4H PRN PRN Reason: Hypertension Last Admin: 05/23/18 04:56 Dose: 20 mg Norepinephrine Bitartrate 4 mg (/ Dextrose/Water) 250 mls @ 7.5 mls/hr IV TITRATE [facility]; Protocol Last Titration: 05/17/18 15:33 Dose: 0 mcg/min, 0 mls/hr Meropenem/Sodium Chloride 500 (mg/ Premix) 50 mls @ 100 mls/hr IV Q6H [facility] Last Admin: 05/23/18 14:19 Dose: 100 mls/hr Lactated Ringer's (Ringers, Lactated) 1,000 mls @ 50 mls/hr IV ASDIRECTED [facility] Last Admin: 05/23/18 03:13 Dose: 50 mls/hr Piperacillin Sod/Tazobactam (Sod 4.5 gm/ Sodium Chloride) 100 mls @ 25 mls/hr IV Q8H [facility] Last Admin: 05/23/18 11:35 Dose: 25 mls/hr Lactulose (Cephulac) 10 gm GTUBE DAILY PRN PRN Reason: Other Levalbuterol HCl (Xopenex) 1.25 mg NEB QIDRT [facility] Last Admin: 05/23/18 15:26 Dose: 1.25 mg Levetiracetam (Keppra) 1,000 mg GTUBE BID [facility] Last Admin: 05/23/18 08:08 Dose: 1,000 mg Lorazepam (Ativan) 0.25 mg GTUBE DAILY [facility] Last Admin: 05/23/18 08:07 Dose: 0.25 mg Lorazepam (Ativan) 2 mg IVPUSH Q4H PRN PRN Reason: Seizures Lorazepam (Ativan) 0.5 mg IVPUSH Q4H PRN; Protocol PRN Reason: Anxiety Last Admin: 05/23/18 06:22 Dose: 0.5 mg Magnesium Oxide (Magnesium Oxide) 400 mg GTUBE BID [facility] Last Admin: 05/23/18 08:06 Dose: 400 mg Metoclopramide HCl (Reglan) 10 mg IVPUSH Q6H [facility] Last Admin: 05/23/18 11:34 Dose: 10 mg Morphine Sulfate (Morphine 10 Mg/0.5 Ml Oral Syringe) 2 mg .XX Q2HR PRN PRN Reason: Pain Last Admin: 05/21/18 17:33 Dose: 2 mg Multivitamins (Thera) 1 each .XX BEDTIME [facility] Last Admin: 05/22/18 20:19 Dose: 1 each Nystatin (Nystatin Crm) 0 gm TOP BID [facility] Last Admin: 05/23/18 08:09 Dose: 1 applic Ondansetron HCl (Zofran Odt) 8 mg GTUBE Q6H PRN PRN Reason: Nausea Oxycodone/Acetaminophen (Percocet 325-5 Mg) 1 tab PO Q4H PRN PRN Reason: Pain (moderate 4-6) Last Admin: 05/23/18 03:58 Dose: 1 tab Potassium Chloride (Potassium Chloride Solution) 60 meq PO BID [facility] Last Admin: 05/23/18 08:08 Dose: 60 meq Saccharomyces Boulardii (Florastor) 250 mg PO TID [facility] Last Admin: 05/23/18 14:28 Dose: Not Given Senna/Docusate Sodium (Senna Plus) 2 tab GTUBE BID [facility] Last Admin: 05/23/18 08:06 Dose: 2 tab Tizanidine HCl (Zanaflex) 2 mg GTUBE TID [facility] Last Admin: 05/23/18 14:29 Dose: Not Given Discontinued Medications Bumetanide (Bumex) 0.5 mg IVPUSH ONETIME ONE Stop: 05/18/18 08:01 Last Admin: 05/18/18 08:59 Dose: 0.5 mg Bumetanide (Bumex) 0.5 mg IVPUSH BID [facility] Stop: 05/20/18 21:01 Last Admin: 05/20/18 20:43 Dose: 0.5 mg Diltiazem HCl (Cardizem) 10 mg IVPUSH ONETIME ONE Stop: 05/20/18 15:30 Last Admin: 05/20/18 15:47 Dose: 10 mg Diltiazem HCl (Cardizem Cd) 180 mg PO DAILY [facility] Last Admin: 05/21/18 09:22 Dose: 180 mg Diltiazem HCl (Cardizem Cd) 120 mg PO ONETIME ONE Stop: 05/21/18 21:01 Last Admin: 05/21/18 21:20 Dose: 120 mg Enoxaparin Sodium (Lovenox) 40 mg SUBCUT BEDTIME [facility] Last Admin: 05/17/18 00:14 Dose: Not Given Fludrocortisone Acetate (Florinef) 0.1 mg PO BIDMEALS [facility] Last Admin: 05/20/18 06:00 Dose: 0.1 mg Furosemide (Lasix) 40 mg IVPUSH NOW ONE Stop: 05/21/18 21:14 Last Admin: 05/21/18 21:23 Dose: 40 mg Furosemide (Lasix) 20 mg IVPUSH BIDDIURETIC [facility] Stop: 05/23/18 14:01 Last Admin: 05/23/18 14:19 Dose: 20 mg Hydrochlorothiazide (Hydrochlorothiazide) 25 mg PO ONETIME ONE Stop: 05/21/18 21:15 Last Admin: 05/21/18 21:23 Dose: 25 mg Hydrochlorothiazide (Hydrochlorothiazide) 12.5 mg PO BIDDIURETIC [facility] Stop: 05/23/18 21:00 Last Admin: 05/23/18 05:07 Dose: 12.5 mg Hydrocortisone Sodium Succinate (Solu-Cortef) 100 mg IVPUSH Q6H [facility] Last Admin: 05/17/18 00:14 Dose: Not Given Hydrocortisone Sodium Succinate (Solu-Cortef) 100 mg IVPUSH Q6H [facility] Last Admin: 05/18/18 12:25 Dose: 100 mg Piperacillin Sod/Tazobactam (Sod 4.5 gm/ Sodium Chloride) 100 mls @ 25 mls/hr IV ONETIME STA Stop: 05/16/18 10:34 Last Admin: 05/16/18 07:18 Dose: 25 mls/hr Sodium Chloride (Normal Saline) 1,000 mls @ 999 mls/hr IV ONETIME ONE Stop: 05/16/18 07:35 Last Admin: 05/16/18 07:18 Dose: 999 mls/hr Dextrose/Sodium Chloride (Dextrose 5%-Normal Saline) 1,000 mls @ 75 mls/hr IV ASDIRECTED [facility] Last Admin: 05/16/18 09:44 Dose: 75 mls/hr Sodium Chloride (Normal Saline) 2,000 mls @ 999 mls/hr IV ONETIME ONE Stop: 05/16/18 18:23 Last Admin: 05/16/18 17:16 Dose: 999 mls/hr Sodium Chloride (Normal Saline) Confirm Administered Dose 1,000 mls @ as directed .ROUTE [facility] ONE Stop: 05/16/18 17:32 Last Admin: 05/16/18 17:40 Dose: Not Given Sodium Chloride (Normal Saline) 1,000 mls @ 125 mls/hr IV ASDIRECTED [facility] Last Infusion: 05/18/18 07:00 Dose: 15 mls/hr Levofloxacin/Dextrose 500 mg/ (Premix) 100 mls @ 100 mls/hr IV Q24H [facility] Last Admin: 05/20/18 20:17 Dose: 100 mls/hr Piperacillin Sod/Tazobactam (Sod 4.5 gm/ Sodium Chloride) 100 mls @ 25 mls/hr IV Q8H [facility] Last Admin: 05/20/18 04:03 Dose: 25 mls/hr Vancomycin HCl 1 gm/ Sodium (Chloride) 250 mls @ 250 mls/hr IV Q12H [facility] Last Admin: 05/20/18 01:13 Dose: Not Given Sodium Chloride (Normal Saline) 1,000 mls @ 15 mls/hr IV ASDIRECTED [facility] Last Admin: 05/20/18 21:25 Dose: 15 mls/hr Sodium Chloride (Normal Saline) Confirm Administered Dose 250 mls @ as directed .[facility]OUTE [facility] ONE Stop: 05/18/18 16:52 Last Admin: 05/18/18 17:05 Dose: 200 mls/hr Potassium Chloride 10 meq/ (Premix) 100 mls @ 100 mls/hr IV Q1H [facility] Stop: 05/19/18 14:59 Last Admin: 05/19/18 13:49 Dose: 100 mls/hr Magnesium Sulfate 2 gm/ Premix 50 mls @ 25 mls/hr IV ONETIME ONE Stop: 05/21/18 09:59 Last Admin: 05/21/18 09:54 Dose: 25 mls/hr Sodium Chloride (Normal Saline) 1,000 mls @ 75 mls/hr IV ASDIRECTED [facility] Last Infusion: 05/21/18 21:00 Dose: 25 mls/hr Sodium Chloride (Normal Saline) 1,000 mls @ 25 mls/hr IV ASDIRECTED [facility] Lactated Ringer's (Ringers, Lactated) 1,000 mls @ 100 mls/hr IV ASDIRECTED [facility] Stop: 05/22/18 17:00 Last Admin: 05/22/18 11:26 Dose: 100 mls/hr Piperacillin Sod/Tazobactam (Sod 4.5 gm/ Sodium Chloride) 100 mls @ 200 mls/hr IV ONETIME ONE Stop: 05/22/18 20:29 Last Admin: 05/22/18 20:19 Dose: 200 mls/hr Iopamidol (Isovue-300 (61%)) 100 ml IVPUSH ONETIME ONE Stop: 05/22/18 15:26 Last Admin: 05/22/18 15:41 Dose: 100 ml Iopamidol (Isovue-300 (61%)) 100 ml IVPUSH ONETIME ONE Stop: 05/23/18 09:42 Last Admin: 05/23/18 09:50 Dose: 100 ml Levalbuterol HCl (Xopenex) 1.25 mg NEB QID [facility] Lorazepam (Ativan) 1 mg IVPUSH ONETIME ONE Stop: 05/20/18 09:27 Last Admin: 05/20/18 10:16 Dose: 1 mg Magnesium Oxide (Magnesium Oxide) 800 mg GTUBE ONETIME ONE Stop: 05/20/18 12:01 Last Admin: 05/20/18 11:13 Dose: 800 mg Magnesium Sulfate (Pharmacy To Dose - Magnesium Replacement) 1 dose .XX ASDIRECTED [facility] Metoclopramide HCl (Reglan) 5 mg IVPUSH Q6H [facility] Last Admin: 05/18/18 12:25 Dose: 5 mg Metoclopramide HCl (Reglan) 10 mg IVPUSH Q6H [facility] Last Admin: 05/19/18 05:05 Dose: Not Given Metoprolol Tartrate (Lopressor) 5 mg IVPUSH Q4H PRN PRN Reason: Tachycardia Last Admin: 05/20/18 03:20 Dose: 5 mg Metoprolol Tartrate (Lopressor) 25 mg PO Q12H [facility] Last Admin: 05/20/18 20:20 Dose: 25 mg Metoprolol Tartrate (Lopressor) 25 mg PO ONETIME ONE Stop: 05/20/18 14:06 Last Admin: 05/20/18 14:13 Dose: 25 mg Midodrine (Midodrine) 5 mg PO TIDAC [facility] Stop: 05/18/18 07:01 Last Admin: 05/18/18 06:34 Dose: 5 mg Midodrine (Midodrine) 5 mg PO TIDAC [facility] Last Admin: 05/19/18 17:09 Dose: 5 mg Midodrine (Midodrine) 5 mg PO TIDAC [facility] Non-Formulary Medication (Lactose-Reduced Food/Fiber [Jevity 1.2 Ugo Liquid]) 260 ml GTUBE 5XDAY [facility] Last Admin: 05/17/18 11:31 Dose: Not Given Non-Formulary Medication (Water [Water]) 100 ml GTUBE TID [facility] Last Admin: 05/17/18 10:25 Dose: Not Given Potassium Chloride (Potassium Chloride Solution) 20 meq PO BID [facility] Last Admin: 05/16/18 20:52 Dose: 20 meq Potassium Chloride (Pharmacy To Dose - Potassium Replacement) 1 dose .XX ASDIRECTED [facility] Potassium Chloride (Potassium Chloride Solution) 20 meq PO BID [facility] Last Admin: 05/19/18 20:43 Dose: 20 meq Potassium Chloride (Potassium Chloride Solution) 40 meq PO BID [facility] Potassium Chloride (Klor-Con M20) 60 meq PO ONETIME ONE Stop: 05/20/18 09:01 Last Admin: 05/20/18 08:57 Dose: 60 meq Potassium Chloride (Potassium Chloride Solution) 40 meq PO BID [facility] Last Admin: 05/21/18 21:59 Dose: Not Given Sodium Chloride (Saline Flush) 10 ml FLUSH ONETIME PRN PRN Reason: IV FLUSH Stop: 05/23/18 12:00 Vancomycin HCl (Pharmacy To Dose - Vancomycin) 0 dose .XX ASDIRECTED PRN PRN Reason: RX TO DOSE VANCOMYCIN - Exam Quality Assessment: Supplemental Oxygen, DVT Prophylaxis General: No Acute Distress HEENT: Pupils Equal, Pupils Reactive Neck: No JVD Lungs: Normal Respiratory Effort, Decreased Breath Sounds, Rhonchi Cardiovascular: Regular Rate, Tachycardia GI/Abdominal Exam: Soft, Non-Tender, No Distention, Abnormal Bowel Sounds (Female) Exam: Deferred Back Exam: Normal Inspection Extremities: Normal Inspection, Slow Capillary Refill Skin: Warm Neurological: No New Focal Deficit Psy/Mental Status: Agitated - Problem List Review Problem List Initiated/Reviewed/Updated: Yes - My Orders Last 24 Hours: My Active Orders 05/22/18 17:00 Lactated Ringers [Ringers, Lactated] 1,000 ml IV ASDIRECTED 05/23/18 04:00 Piperacillin/Tazobactam [Piperacil-Tazobact] 4.5 gm Sodium Chloride 0.9% [ Normal Saline] 100 ml IV Q8H 05/23/18 09:24 RT Aerosol Therapy [RC] ASDIRECTED 05/23/18 14:29 Consult to Physician [CONS] Urgent 05/23/18 14:31 Notify Provider Consults [RC] ASDIRECTED 05/23/18 16:00 Levalbuterol HCl [Xopenex] 1.25 mg NEB QIDRT 05/24/18 05:00 CBC WITH AUTO DIFF [HEME] DAILY LACTIC ACID [CHEM] DAILY 05/24/18 08:00 CXR [Chest 1V Frontal] [CR] DAILY 05/25/18 05:00 CBC WITH AUTO DIFF [HEME] DAILY LACTIC ACID [CHEM] DAILY 05/25/18 08:00 CXR [Chest 1V Frontal] [CR] DAILY 05/26/18 05:00 CBC WITH AUTO DIFF [HEME] DAILY LACTIC ACID [CHEM] DAILY 05/26/18 08:00 CXR [Chest 1V Frontal] [CR] DAILY 05/27/18 08:00 CXR [Chest 1V Frontal] [CR] DAILY 05/28/18 08:00 CXR [Chest 1V Frontal] [CR] DAILY - Plan Plan:: Assessment/Plan: Acute: UTI - 2/2 Urinary retention from neurogenic bladder - UA is pos for E. Faecalis-sensitive to Quinolone and Gram Pos Coccobacillus (normal dereck per microbiology); Added Meropenem due to increasing WBC and persistently elevated CRP - IV Antibiotics as above for coverage Hypoalbuminemia - Albumin 1.2 - Reason why she has significant peripheral edema - Dietary consult; receiving more protein Hypomagnesemia - MG 1.7--> 1.7 - Replete and monitor Sinus Tachycardia, Improved - HR in the teens - This could be her way of telling us she is in pain or in some kind of discomfort - PRN Ativan and Pain Medication - Responded better with CCB; Now on Cardizem - Thyroid Panel l FT4 jamison; TSH slightly elevated End of Life Care - Again we spoke to mother and sister at bedside; they understand "comfort measures" but they want treatment of Violette's infection Resolved: S/p Anemia - Acute on Chronic - Hgb of 8.5 and Hct 29; baseline is 11-12 (February 2018)--> 6.9--> 10.8 S/ p 2 units of PRBC transfusion - Stool occult study-pending; she has not had a bowel movement - Iron Panel: shows Anemia of Chronic Disease - Asked earlier if she wants blood transfusion; she said no. But changed her mind when her mom was at bedside. S/p Constipation/Ileus - Has not had a bowel since the - She is on narcotics and plenty of anticholinergics - KUB r/o SBO - Hold tube feeding for now - Rectal suppository BID until bowel movement; consider lactulose or magnesium--> had 3 bowel movements over night - Prokinetic agent since she is bedbound and immobile; d/c prokinetic agent and resume tube feeding S/p Atelectasis/Increased Density Right Lung Base (likely chronic) - Carries a hx/o Dysphagia - Cannot r/o Aspiration Syndrome - Continue IV Zosyn and Levaquin; She is on H2B for aspiration prophylaxis - She is unable to use IS S/p Bacteremia w/o Hypotension - 2/2 UTI due to neurogenic bladder from MS - Carries a hx/o Multiple Urine and Blood Infections in the past - Risk Factor: Advanced MS, AMS, Recurrent UTI and Aspiration Syndrome 2/2 Dysphagia - Fever of 39 C; WBC of 14.22, HR of 119-128, BP of 92/34, 100/48, 101/58 mmHg, RR 24-33 - LA 6.2 --> 5.3 --> 5.6--> 3.1-->2.2; received a total of 3L of NS overnight plus 1L NS at 125 cc/hr but remained hypotensive overnight - Procalcitonin 5.44 (high risk progression to severe sepsis); WBC 28.6--> 23.78; CRP 29.7-->31.4 - 1 set of bottle positive for Staph Coagulase Neg (possible contamination); repeat blood culture -pending - Discontinue Solucortef 100 mg IV Q6H; She is now off Levophed drip - High pseudomonal risk due to recent multiple antibiotic use: Azithromycin -, Cipro 05/10-, and Bactrim 05/13- - Continue IV Levaquin and discontinue IV Zosyn and Vancomycin; hopefully we can de-escalate tomorrow - Discontinue Midodrine 5 mg po TIDAC and Florinef 0.1 mg po BID for Orthostatic/Autonomic Dysfunction - Repeat blood culture is negative S/p Hypokalemia - K 3.0-->3.1--> 3.8 - 04/27 diuretic use - Replete and monitor Chronic: Dysphagia Urinary Retention Back Pain OA Spasms Osteoporosis CVA/TIA MS Anemia of Chronic Disease Seizure Disorder Hx/o DVT/VTE Alzheimer's Disease DM2, BS controlled Anxiety Depression Plan: TF held, will likely resume at much lower volume keeping the same frequency. For example, 30cc at 60 cc/hr, give at : 0600, 1000, 1400, 1800, 2200 hour; Free H2O flushes pre/post TFs, 45 cc each totally 90 cc (total H2O). Routine AM Labs Continue IVF, maintaining UO 75-100cc/hr Aspiration/Seizure/Fall Precaution DVT/GI PPx: Lovenox SubQ/H2B Additional orders as above SW/CM for D/c planning DNR/DNI/Comfort Measures LOS > 96hrs due to longer requirement for treatment; WBC going up, persistent tachycardia and CRP level. CT of thorax with contrast RUL/RLL infiltrate with pleural effusion; will restart Zosyn and assess ATBs accordingly. Gen surg for assessment--reviewed images, see full consult. Patient has severe right sided hydronephrosis; case discussed by Dr De Jesus with Dr Tim, urology, will need transfer to [facility] for probable nephrostomy tube. Likely will be placed by IR. AM Family meeting Family meetings held in the am with patient's mother, Viviane. Duration was 15 minutes. Discussed radiology studies, change PE, need to address Ileus. Patient's Mother wants continued care, wishes to proceed with general surgery consult as suggested. PM Family meeting (duration per Dr De Jesus). Dr Blackman with Viviane, discussed recommendation for urology ie Ileus was mild. However right kidney needs to be decompressed, he subsequently called [facility], and spoke with Dr Tim as mentioned. Plan of care discussed was IR procedure after transfer for nephrostomy tube. Urology consult with Dr Tim, primary service would be the hospitalist service. Patient is stable, will therefore transfer on 05/24/18. ATBs Zosyn/Flagyl to be continued at transfer.
[2018-05-23] MEDS: metroNIDAZOLE/Normal Saline 500 MG in Premix Bag 1 BAG IV SCH (21:15)
[2018-05-23] MEDS: Multivitamins,Therapeutic Tab SCH (21:16)
[2018-05-24] MEDS: Lactated Ringers 1,000 ML IV SCH (01:02)
[2018-05-24] MEDS: Metoclopramide 10 MG/2 ML SDV IVPUSH SCH ×3 (04:18→17:29)
[2018-05-24] MEDS: metroNIDAZOLE/Normal Saline 500 MG in Premix Bag 1 BAG IV SCH ×2 (04:18→12:23)
[2018-05-24] MEDS: Piperacillin/Tazobactam 4.5 GM in Sodium Chloride 0.9% 100 ML IV SCH ×2 (04:19→12:19)
[2018-05-24] MEDS: Levalbuterol HCl 1.25 MG/3 ML Neb NEB SCH (06:52)
--- NOTE | 2018-05-24 07:30 | PCM.DCSUM1 ---
Discharge Summary - Hospital Course HPI Initial Comments: his is a 57 yo white female with past medical hx/o Dysphagia, Urinary Retention , Back Pain, OA, Spasms, Osteoporosis, CVA/TIA, Advanced MS, Anemia, CKD, Seizure Disorder, Hx/o DVT/VTE, Alzheimer's Disease, DM2, Anxiety, and Depression who was brought in from [facility] due to febrile illness associated with decreased responsiveness in the past a couple of days. Per ED notes, ED staff were told that it is expected she will but her mother did not want patient to in the penitentiary and would rather be brought here in the hospital. Dr. Figueroa also informed me that this patient is comfort measures. Her initial work up in ED shows CBC remarkable for WBC of 14.22, RBC of 3.55, Hgb of 8.5, Hct of 29.1, MCH of 23.9, MCHC of 29.2, RDW of 51.9, Platelet of 833 , Neutrophils of 68% and Monocytes of 1%. Her ABG shows a pH of 7.61, pCO2 of 20.5, pO2 of 64, HCO3 of 20.5 and O2 Sat of 97.1%. Her chemistry is significant for Sodium of 133, CO2 of 20, AG of 20, BUN of 29, Cr of 1.3, LA of 6.2 and Ca of 10.4, AST of 66, ALT of 101, Alk Phos of 147, Total Protein of 8.3, and Albumin of 1.2. Her UA is strongly suggestive of UTI. Her CXR shows atelectasis on the bases. Her BPs have been significantly low, with RR in the 20-30s, HR as high as 160 and a Temp of 39 C on presentation to ED. Patient is being admitted for Sepsis secondary to UTI. She is DNR/DNI/Comfort Measures. Diagnosis: Stroke: No - Discharge Data Discharge Date: 05/24/18 Discharge Disposition: DC/Tfer to Acute Hospital 02 Condition: Good - Patient Summary/Data Consults: Consultations 05/18/18 07:10 Consult to Dietary [Consult to [employer]er] [CONS] Routine 05/23/18 14:29 Consult to Physician [CONS] Urgent - Patient Instructions Diet: NPO Diet, Other: TF as listed in A/P section Activity: Bedrest Driving: Do Not Drive Showering/Bathing: No Showering Notify Provider of: Fever, Increased Pain, Nausea and/or Vomiting - Discharge Plan *PRESCRIPTION DRUG MONITORING PROGRAM REVIEWED*: Not Applicable *COPY OF PRESCRIPTION DRUG MONITORING REPORT IN PATIENT DEVIKA: Not Applicable Prescriptions/Med Rec: Bisacodyl [Dulcolax] 10 mg RECTAL BID PRN #14 supp PRN Reason: Constipation Home Medications: Home Meds tiZANidine HCl [Zanaflex] 2 mg GTUBE TID 04/06/14 [History] levETIRAcetam [Levetiracetam] 10 ml GTUBE BID 12/23/16 [History] Acetaminophen 650 mg GTUBE Q4H PRN 03/05/18 [History] LORazepam [Ativan] 0.25 mg GTUBE DAILY 03/05/18 [History] Atropine 1% [Atropine 1% Ophth Soln] 2 drop PO Q4HR PRN 05/16/18 [History] Cholecalciferol (Vitamin D3) [Vitamin D3] 2,000 unit GTUBE DAILY 05/16/18 [ History] FA/Lycopene/Lut/MV,Ca,Iron,Min [Centrum] 1 tab GTUBE BEDTIME 05/16/18 [History] FLUoxetine [PROzac] 10 mg GTUBE DAILY 05/16/18 [History] Lactulose 15 ml GTUBE DAILY PRN 05/16/18 [History] Magnesium Oxide [Magnesium] 400 mg GTUBE BID 05/16/18 [History] Morphine [Morphine 10 MG/0.5 ML Oral Syringe] 2 mg GTUBE Q2HR PRN 05/16/18 [ History] Nystatin 15 gm TP BID 05/16/18 [History] Ondansetron [Zofran] 8 mg GTUBE Q6H PRN 05/16/18 [History] Potassium Chloride [Potassium Chloride Solution] 15 ml PO BID 05/16/18 [History] Sennosides/Docusate Sodium [Senna Plus Tablet] 2 each GTUBE BID 05/16/18 [ History] Bisacodyl [Dulcolax] 10 mg RECTAL BID PRN #14 supp 05/24/18 [Rx] Diltiazem [Cardizem] 10 mg IVPUSH Q4HR PRN sdv 05/24/18 [Rx] Diltiazem [Dilacor XR] 240 mg PO DAILY cap.er 05/24/18 [Rx] Enoxaparin [Lovenox] 40 mg SUBCUT DAILY syringe 05/24/18 [Rx] LORazepam [Ativan] 0.5 mg IVPUSH Q4H PRN vial 05/24/18 [Rx] LORazepam [Ativan] 2 mg IVPUSH Q4H PRN vial 05/24/18 [Rx] Lactated Ringers [Ringers, Lactated] 50 ml IV ASDIRECTED #1000 bag 05/24/18 [Rx] Lactose-Reduced Food/Fiber [Jevity 1.2 Ugo Liquid] 260 ml GTUBE 5XDAY #300 05/24 [Rx] Levalbuterol HCl [Xopenex] 1.25 mg NEB QIDRT neb 05/24/18 [Rx] Metoclopramide [Reglan] 10 mg IVPUSH Q6H sdv 05/24/18 [Rx] Piperacillin/Tazobactam [Piperacil-Tazobact] 4.5 gm IV Q8H adv 05/24/18 [Rx] Saccharomyces Boulardii [Florastor] 250 mg PO TID cap 05/24/18 [Rx] Water 100 ml GTUBE TID #0 05/24/18 [Rx] hydrALAZINE [Apresoline] 20 mg IVPUSH Q4H PRN sdv 05/24/18 [Rx] metroNIDAZOLE/Normal Saline [Flagyl 500 MG in NS 100 ML] 500 mg IV Q8H bag 04/13 [Rx] Oxygen Therapy Mode: Room Air Patient Handouts: Urosepsis, Percutaneous Nephrostomy Referrals: Ron Khan MD [Primary Care Provider] - - Discharge Summary/Plan Comment DC Time >30 min.: Yes Discharge Summary/Plan Comment: Plan:: Assessment/Plan: Acute: UTI - 2/2 Urinary retention from neurogenic bladder - UA is pos for E. Faecalis-sensitive to Quinolone and Gram Pos Coccobacillus (normal dereck per microbiology); Added Meropenem due to increasing WBC and persistently elevated CRP - IV Antibiotics as above for coverage Hypoalbuminemia - Albumin 1.2 - Reason why she has significant peripheral edema - Dietary consult; receiving more protein Hypomagnesemia - MG 1.7--> 1.7 - Replete and monitor Sinus Tachycardia, Improved - HR in the teens - This could be her way of telling us she is in pain or in some kind of discomfort - PRN Ativan and Pain Medication - Responded better with CCB; Now on Cardizem - Thyroid Panel l FT4 jamison; TSH slightly elevated End of Life Care - Again we spoke to mother and sister at bedside; they understand "comfort measures" but they want treatment of Violette's infection Resolved: S/p Anemia - Acute on Chronic - Hgb of 8.5 and Hct 29; baseline is 11- (February 2018)--> 6.9--> 10.8 S/ p 2 units of PRBC transfusion - Stool occult study-pending; she has not had a bowel movement - Iron Panel: shows Anemia of Chronic Disease - Asked earlier if she wants blood transfusion; she said no. But changed her mind when her mom was at bedside. S/p Constipation/Ileus - Has not had a bowel since the - She is on narcotics and plenty of anticholinergics - KUB r/o SBO - Hold tube feeding for now - Rectal suppository BID until bowel movement; consider lactulose or magnesium--> had 3 bowel movements over night - Prokinetic agent since she is bedbound and immobile; d/c prokinetic agent and resume tube feeding S/p Atelectasis/Increased Density Right Lung Base (likely chronic) - Carries a hx/o Dysphagia - Cannot r/o Aspiration Syndrome - Continue IV Zosyn and Levaquin; She is on H2B for aspiration prophylaxis - She is unable to use IS S/p Bacteremia w/o Hypotension - 2/2 UTI due to neurogenic bladder from MS - Carries a hx/o Multiple Urine and Blood Infections in the past - Risk Factor: Advanced MS, AMS, Recurrent UTI and Aspiration Syndrome 2/2 Dysphagia - Fever of 39 C; WBC of 14.22, HR of 119-128, BP of 92/34, 100/48, 101/58 mmHg, RR 24-33 - LA 6.2 --> 5.3 --> 5.6--> 3.1-->2.2; received a total of 3L of NS overnight plus 1L NS at 125 cc/hr but remained hypotensive overnight - Procalcitonin 5.44 (high risk progression to severe sepsis); WBC 28.6--> 23.78; CRP 29.7-->31.4 - 1 set of bottle positive for Staph Coagulase Neg (possible contamination); repeat blood culture -pending - Discontinue Solucortef 100 mg IV Q6H; She is now off Levophed drip - High pseudomonal risk due to recent multiple antibiotic use: Azithromycin -, Cipro 05/10-, and Bactrim 05/13- - Continue IV Levaquin and discontinue IV Zosyn and Vancomycin; hopefully we can de-escalate tomorrow - Discontinue Midodrine 5 mg po TIDAC and Florinef 0.1 mg po BID for Orthostatic/Autonomic Dysfunction - Repeat blood culture is negative S/p Hypokalemia - K 3.0-->3.1--> 3.8 - 04/27 diuretic use - Replete and monitor Chronic: Dysphagia Urinary Retention Back Pain OA Spasms Osteoporosis CVA/TIA MS Anemia of Chronic Disease Seizure Disorder Hx/o DVT/VTE Alzheimer's Disease DM2, BS controlled Anxiety Depression Plan: TF held, will likely resume at much lower volume keeping the same frequency. For example, 30cc at 60 cc/hr, give at : 0600, 1000, 1400, 1800, 2200 hour; Free H2O flushes pre/post TFs, 45 cc each totally 90 cc (total H2O). Routine AM Labs Continue IVF, maintaining UO 75-100cc/hr Aspiration/Seizure/Fall Precaution DVT/GI PPx: Lovenox SubQ/H2B Additional orders as above SW/CM for D/c planning DNR/DNI/Comfort Measures LOS > 96hrs due to longer requirement for treatment; WBC going up, persistent tachycardia and CRP level. CT of thorax with contrast RUL/RLL infiltrate with pleural effusion; will restart Zosyn and assess ATBs accordingly. Gen surg for assessment--reviewed images, see full consult. Patient has severe right sided hydronephrosis; case discussed by Dr De Jesus with Dr Tim, urology, will need transfer to [facility] for probable nephrostomy tube. Likely will be placed by IR. AM Family meeting Family meetings held in the am with patient's mother, Viviane. Duration was 15 minutes. Discussed radiology studies, change PE, need to address Ileus. Patient's Mother wants continued care, wishes to proceed with general surgery consult as suggested. PM Family meeting (duration per Dr De Jesus). Dr Blackman with Viviane, discussed recommendation for urology ie Ileus was mild. However right kidney needs to be decompressed, he subsequently called [facility], and spoke with Dr Tim as mentioned. Plan of care discussed was IR procedure after transfer for nephrostomy tube. Urology consult with Dr Tim, primary service would be the hospitalist service. Patient is stable, will therefore transfer on 05/24/18. ATBs Zosyn/Flagyl to be continued at transfer. - General Info Date of Service: 05/16/18 - Patient Data Vitals - Most Recent: Last Vital Signs Temp 36.4 C 05/24/18 00:00 Pulse 109 H 05/24/18 04:00 Resp 15 05/24/18 04:00 BP 116/82 05/24/18 04:00 Pulse Ox 96 05/24/18 04:00 Weight - Most Recent: 77.7 kg I&O - Last 24 hours: Intake & Output 05/23/18 05/24/18 05/24/18 22:59 06:59 14:59 Intake Total 985 893 Output Total 950 300 Balance 35 593 Lab Results - Last 24 hrs: Laboratory Results - last 24 hr 05/23/18 05/23/18 05/23/18 Range/Units 06:33 07:15 07:35 WBC 21.82 H (3.98-10.04) K/mm3 RBC 4.90 (3.98-5.22) M/mm3 Hgb 12.5 (11.2-15.7) gm/L Hct 41.8 (34.1-44.9) % MCV 85.3 (79.4-94.8) fl MCH 25.5 L (25.6-32.2) pg MCHC 29.9 L (32.2-35.5) g/dl RDW Std Deviation 59.7 H (36.4-46.3) fL Plt Count 460 H (182-369) K/mm3 MPV 10.1 (9.4-12.3) fl Neut % (Auto) 74.8 H (34.0-71.1) % Lymph % (Auto) 15.2 L (19.3-51.7) % [place] % (Auto) 6.2 (4.7-12.5) % Eos % (Auto) 1.5 (0.7-5.8) Baso % (Auto) 0.2 (0.1-1.2) % Neut # (Auto) 16.32 H (1.56-6.13) K/mm3 Lymph # (Auto) 3.32 (1.18-3.74) K/mm3 [place] # (Auto) 1.35 H (0.24-0.36) K/mm3 Eos # (Auto) 0.32 (0.04-0.36) K/mm3 Baso # (Auto) 0.05 (0.01-0.08) K/mm3 Manual Slide Review Abnormal smear Puncture Site ABG pH (7.35-7.45) ABG pCO2 (35.0-45.0) mmHg ABG pO2 (80.0-100.0) mmHg ABG HCO3 (22.0-26.0) meq/L ABG O2 Saturation (96.0-97.0) % ABG Base Excess (-2-2.0) Danny Test A-a Gradient mmHg O2 Delivery Device Oxygen Flow Rate FiO2 (21.00-100.00) % Sodium 143 (136-145) mEq/L Potassium 4.4 (3.5-5.1) mEq/L Chloride 106 (98-107) mEq/L Carbon Dioxide 27 (21-32) mEq/L Anion Gap 14.4 (5-15) BUN 32 H (7-18) mg/dL Creatinine 0.9 (0.55-1.02) mg/dL Est Cr Clr Drug Dosing 63.55 mL/min Estimated GFR (MDRD) > 60 (>60) mL/min BUN/Creatinine Ratio 35.6 H (14-18) Glucose 122 H (74-106) mg/dL Lactic Acid 3.0 H (0.4-2.0) mmol/L Calcium 11.6 H (8.5-10.1) mg/dL Magnesium 2.1 (1.8-2.4) mg/dl Total Bilirubin (0.2-1.0) mg/dL C-Reactive Protein 11.7 H* (<1.0) mg/dL Amylase (25-115) U/L Lipase (73-393) U/L 05/23/18 05/23/18 05/24/18 Range/Units 07:35 09:58 06:10 WBC 16.13 H (3.98-10.04) K/mm3 RBC 4.09 (3.98-5.22) M/mm3 Hgb 10.5 L (11.2-15.7) gm/L Hct 35.8 (34.1-44.9) % MCV 87.5 (79.4-94.8) fl MCH 25.7 (25.6-32.2) pg MCHC 29.3 L (32.2-35.5) g/dl RDW Std Deviation 60.7 H (36.4-46.3) fL Plt Count 546 H (182-369) K/mm3 MPV 9.4 (9.4-12.3) fl Neut % (Auto) 75.9 H (34.0-71.1) % Lymph % (Auto) 15.2 L (19.3-51.7) % [place] % (Auto) 7.2 (4.7-12.5) % Eos % (Auto) 0.3 L (0.7-5.8) Baso % (Auto) 0.2 (0.1-1.2) % Neut # (Auto) 12.25 H (1.56-6.13) K/mm3 Lymph # (Auto) 2.45 (1.18-3.74) K/mm3 [place] # (Auto) 1.16 H (0.24-0.36) K/mm3 Eos # (Auto) 0.05 (0.04-0.36) K/mm3 Baso # (Auto) 0.03 (0.01-0.08) K/mm3 Manual Slide Review Puncture Site Lt radial ABG pH 7.47 H (7.35-7.45) ABG pCO2 40.0 (35.0-45.0) mmHg ABG pO2 63.0 L (80.0-100.0) mmHg ABG HCO3 29.0 H (22.0-26.0) meq/L ABG O2 Saturation 92.8 L (96.0-97.0) % ABG Base Excess 5.3 H (-2-2.0) Danny Test Positive A-a Gradient 41 mmHg O2 Delivery Device Nasal cannula Oxygen Flow Rate 2.0 FiO2 24.00 (21.00-100.00) % Sodium (136-145) mEq/L Potassium (3.5-5.1) mEq/L Chloride (98-107) mEq/L Carbon Dioxide (21-32) mEq/L Anion Gap (5-15) BUN (7-18) mg/dL Creatinine (0.55-1.02) mg/dL Est Cr Clr Drug Dosing mL/min Estimated GFR (MDRD) (>60) mL/min BUN/Creatinine Ratio (14-18) Glucose (74-106) mg/dL Lactic Acid (0.4-2.0) mmol/L Calcium (8.5-10.1) mg/dL Magnesium (1.8-2.4) mg/dl Total Bilirubin 0.4 (0.2-1.0) mg/dL C-Reactive Protein (<1.0) mg/dL Amylase 41 (25-115) U/L Lipase 137 (73-393) U/L 05/24/18 Range/Units 06:10 WBC (3.98-10.04) K/mm3 RBC (3.98-5.22) M/mm3 Hgb (11.2-15.7) gm/L Hct (34.1-44.9) % MCV (79.4-94.8) fl MCH (25.6-32.2) pg MCHC (32.2-35.5) g/dl RDW Std Deviation (36.4-46.3) fL Plt Count (182-369) K/mm3 MPV (9.4-12.3) fl Neut % (Auto) (34.0-71.1) % Lymph % (Auto) (19.3-51.7) % [place] % (Auto) (4.7-12.5) % Eos % (Auto) (0.7-5.8) Baso % (Auto) (0.1-1.2) % Neut # (Auto) (1.56-6.13) K/mm3 Lymph # (Auto) (1.18-3.74) K/mm3 [place] # (Auto) (0.24-0.36) K/mm3 Eos # (Auto) (0.04-0.36) K/mm3 Baso # (Auto) (0.01-0.08) K/mm3 Manual Slide Review Puncture Site ABG pH (7.35-7.45) ABG pCO2 (35.0-45.0) mmHg ABG pO2 (80.0-100.0) mmHg ABG HCO3 (22.0-26.0) meq/L ABG O2 Saturation (96.0-97.0) % ABG Base Excess (-2-2.0) Danny Test A-a Gradient mmHg O2 Delivery Device Oxygen Flow Rate FiO2 (21.00-100.00) % Sodium (136-145) mEq/L Potassium (3.5-5.1) mEq/L Chloride (98-107) mEq/L Carbon Dioxide (21-32) mEq/L Anion Gap (5-15) BUN (7-18) mg/dL Creatinine (0.55-1.02) mg/dL Est Cr Clr Drug Dosing mL/min Estimated GFR (MDRD) (>60) mL/min BUN/Creatinine Ratio (14-18) Glucose (74-106) mg/dL Lactic Acid 2.4 H (0.4-2.0) mmol/L Calcium (8.5-10.1) mg/dL Magnesium (1.8-2.4) mg/dl Total Bilirubin (0.2-1.0) mg/dL C-Reactive Protein (<1.0) mg/dL Amylase (25-115) U/L Lipase (73-393) U/L BUTCH Results - Last 24 hrs: Microbiology 05/19/18 06:03 Aerobic Blood Culture - Preliminary Blood - Venous - Lab Draw NO GROWTH AFTER 4 DAYS Anaerobic Blood Culture - Preliminary NO GROWTH AFTER 4 DAYS 05/19/18 15:50 Aerobic Blood Culture - Preliminary Blood - Venous NO GROWTH AFTER 4 DAYS Anaerobic Blood Culture - Final 05/16/18 07:15 Aerobic Blood Culture - Final Blood - Venous - Lab Draw NO GROWTH AFTER 7 DAYS Anaerobic Blood Culture - Final 05/16/18 07:28 Aerobic Blood Culture - Final Blood - Venous NO GROWTH AFTER 7 DAYS Anaerobic Blood Culture - Final Staphylococcus Coagulase Neg Med Orders - Current: Current Medications Acetaminophen (Tylenol) 650 mg GTUBE Q4H PRN PRN Reason: Pain/Fever Last Admin: 05/17/18 00:46 Dose: 650 mg Atropine Sulfate (Atropine 1% Oph Soln) 0 ml SL Q4H PRN PRN Reason: extra secretions Bisacodyl (Dulcolax) 10 mg RECTAL BID PRN PRN Reason: Constipation Last Admin: 05/22/18 15:50 Dose: 10 mg Cholecalciferol (Vitamin D3) 2,000 units GTUBE DAILY [facility] Last Admin: 05/23/18 08:06 Dose: 2,000 units Diltiazem HCl (Cardizem) 10 mg IVPUSH Q4HR PRN PRN Reason: Tachycardia Last Admin: 05/23/18 05:37 Dose: 10 mg Diltiazem HCl (Dilacor Xr) 240 mg PO DAILY [facility] Last Admin: 05/23/18 08:07 Dose: 240 mg Enoxaparin Sodium (Lovenox) 40 mg SUBCUT DAILY [facility] Last Admin: 05/23/18 08:08 Dose: 40 mg Fluoxetine HCl (Prozac) 10 mg GTUBE DAILY [facility] Last Admin: 05/23/18 08:07 Dose: 10 mg Hydralazine HCl (Apresoline) 20 mg IVPUSH Q4H PRN PRN Reason: Hypertension Last Admin: 05/23/18 04:56 Dose: 20 mg Norepinephrine Bitartrate 4 mg (/ Dextrose/Water) 250 mls @ 7.5 mls/hr IV TITRATE [facility]; Protocol Last Titration: 05/17/18 15:33 Dose: 0 mcg/min, 0 mls/hr Lactated Ringer's (Ringers, Lactated) 1,000 mls @ 50 mls/hr IV ASDIRECTED [facility] Last Admin: 05/24/18 01:02 Dose: 50 mls/hr Piperacillin Sod/Tazobactam (Sod 4.5 gm/ Sodium Chloride) 100 mls @ 25 mls/hr IV Q8H [facility] Last Admin: 05/24/18 04:19 Dose: 25 mls/hr Metronidazole 500 mg/ Premix 100 mls @ 100 mls/hr IV Q8H [facility] Last Admin: 05/24/18 04:18 Dose: 100 mls/hr Lactulose (Cephulac) 10 gm GTUBE DAILY PRN PRN Reason: Other Levalbuterol HCl (Xopenex) 1.25 mg NEB QIDRT [facility] Last Admin: 05/24/18 06:52 Dose: 1.25 mg Levetiracetam (Keppra) 1,000 mg GTUBE BID [facility] Last Admin: 05/23/18 21:14 Dose: 1,000 mg Lorazepam (Ativan) 0.25 mg GTUBE DAILY [facility] Last Admin: 05/23/18 08:07 Dose: 0.25 mg Lorazepam (Ativan) 2 mg IVPUSH Q4H PRN PRN Reason: Seizures Lorazepam (Ativan) 0.5 mg IVPUSH Q4H PRN; Protocol PRN Reason: Anxiety Last Admin: 05/23/18 06:22 Dose: 0.5 mg Magnesium Oxide (Magnesium Oxide) 400 mg GTUBE BID [facility] Last Admin: 05/23/18 21:17 Dose: 400 mg Metoclopramide HCl (Reglan) 10 mg IVPUSH Q6H [facility] Last Admin: 05/24/18 04:18 Dose: 10 mg Morphine Sulfate (Morphine 10 Mg/0.5 Ml Oral Syringe) 2 mg .XX Q2HR PRN PRN Reason: Pain Last Admin: 05/21/18 17:33 Dose: 2 mg Multivitamins (Thera) 1 each .XX BEDTIME [facility] Last Admin: 05/23/18 21:16 Dose: 1 each Nystatin (Nystatin Crm) 0 gm TOP BID [facility] Last Admin: 05/23/18 21:19 Dose: 1 applic Ondansetron HCl (Zofran Odt) 8 mg GTUBE Q6H PRN PRN Reason: Nausea Oxycodone/Acetaminophen (Percocet 325-5 Mg) 1 tab PO Q4H PRN PRN Reason: Pain (moderate 4-6) Last Admin: 05/23/18 03:58 Dose: 1 tab Potassium Chloride (Potassium Chloride Solution) 60 meq PO BID [facility] Last Admin: 05/23/18 21:14 Dose: 60 meq Saccharomyces Boulardii (Florastor) 250 mg PO TID [facility] Last Admin: 05/23/18 21:16 Dose: 250 mg Senna/Docusate Sodium (Senna Plus) 2 tab GTUBE BID [facility] Last Admin: 05/23/18 21:16 Dose: 2 tab Tizanidine HCl (Zanaflex) 2 mg GTUBE TID [facility] Last Admin: 05/23/18 21:17 Dose: 2 mg Discontinued Medications Bumetanide (Bumex) 0.5 mg IVPUSH ONETIME ONE Stop: 05/18/18 08:01 Last Admin: 05/18/18 08:59 Dose: 0.5 mg Bumetanide (Bumex) 0.5 mg IVPUSH BID [facility] Stop: 05/20/18 21:01 Last Admin: 05/20/18 20:43 Dose: 0.5 mg Diltiazem HCl (Cardizem) 10 mg IVPUSH ONETIME ONE Stop: 05/20/18 15:30 Last Admin: 05/20/18 15:47 Dose: 10 mg Diltiazem HCl (Cardizem Cd) 180 mg PO DAILY [facility] Last Admin: 05/21/18 09:22 Dose: 180 mg Diltiazem HCl (Cardizem Cd) 120 mg PO ONETIME ONE Stop: 05/21/18 21:01 Last Admin: 05/21/18 21:20 Dose: 120 mg Enoxaparin Sodium (Lovenox) 40 mg SUBCUT BEDTIME [facility] Last Admin: 05/17/18 00:14 Dose: Not Given Famotidine (Pepcid) 20 mg PO BID [facility] Last Admin: 05/23/18 08:06 Dose: 20 mg Fludrocortisone Acetate (Florinef) 0.1 mg PO BIDMEALS [facility] Last Admin: 05/20/18 06:00 Dose: 0.1 mg Furosemide (Lasix) 40 mg IVPUSH NOW ONE Stop: 05/21/18 21:14 Last Admin: 05/21/18 21:23 Dose: 40 mg Furosemide (Lasix) 20 mg IVPUSH BIDDIURETIC [facility] Stop: 05/23/18 14:01 Last Admin: 05/23/18 14:19 Dose: 20 mg Hydrochlorothiazide (Hydrochlorothiazide) 25 mg PO ONETIME ONE Stop: 05/21/18 21:15 Last Admin: 05/21/18 21:23 Dose: 25 mg Hydrochlorothiazide (Hydrochlorothiazide) 12.5 mg PO BIDDIURETIC [facility] Stop: 05/23/18 21:00 Last Admin: 05/23/18 05:07 Dose: 12.5 mg Hydrocortisone Sodium Succinate (Solu-Cortef) 100 mg IVPUSH Q6H [facility] Last Admin: 05/17/18 00:14 Dose: Not Given Hydrocortisone Sodium Succinate (Solu-Cortef) 100 mg IVPUSH Q6H [facility] Last Admin: 05/18/18 12:25 Dose: 100 mg Piperacillin Sod/Tazobactam (Sod 4.5 gm/ Sodium Chloride) 100 mls @ 25 mls/hr IV ONETIME STA Stop: 05/16/18 10:34 Last Admin: 05/16/18 07:18 Dose: 25 mls/hr Sodium Chloride (Normal Saline) 1,000 mls @ 999 mls/hr IV ONETIME ONE Stop: 05/16/18 07:35 Last Admin: 05/16/18 07:18 Dose: 999 mls/hr Dextrose/Sodium Chloride (Dextrose 5%-Normal Saline) 1,000 mls @ 75 mls/hr IV ASDIRECTED [facility] Last Admin: 05/16/18 09:44 Dose: 75 mls/hr Sodium Chloride (Normal Saline) 2,000 mls @ 999 mls/hr IV ONETIME ONE Stop: 05/16/18 18:23 Last Admin: 05/16/18 17:16 Dose: 999 mls/hr Sodium Chloride (Normal Saline) Confirm Administered Dose 1,000 mls @ as directed .ROUTE .STK-MED ONE Stop: 05/16/18 17:32 Last Admin: 05/16/18 17:40 Dose: Not Given Sodium Chloride (Normal Saline) 1,000 mls @ 125 mls/hr IV ASDIRECTED [facility] Last Infusion: 05/18/18 07:00 Dose: 15 mls/hr Levofloxacin/Dextrose 500 mg/ (Premix) 100 mls @ 100 mls/hr IV Q24H [facility] Last Admin: 05/20/18 20:17 Dose: 100 mls/hr Piperacillin Sod/Tazobactam (Sod 4.5 gm/ Sodium Chloride) 100 mls @ 25 mls/hr IV Q8H [facility] Last Admin: 05/20/18 04:03 Dose: 25 mls/hr Vancomycin HCl 1 gm/ Sodium (Chloride) 250 mls @ 250 mls/hr IV Q12H [facility] Last Admin: 05/20/18 01:13 Dose: Not Given Sodium Chloride (Normal Saline) 1,000 mls @ 15 mls/hr IV ASDIRECTED [facility] Last Admin: 05/20/18 21:25 Dose: 15 mls/hr Sodium Chloride (Normal Saline) Confirm Administered Dose 250 mls @ as directed .ROUTE .STK-MED ONE Stop: 05/18/18 16:52 Last Admin: 05/18/18 17:05 Dose: 200 mls/hr Potassium Chloride 10 meq/ (Premix) 100 mls @ 100 mls/hr IV Q1H [facility] Stop: 05/19/18 14:59 Last Admin: 05/19/18 13:49 Dose: 100 mls/hr Magnesium Sulfate 2 gm/ Premix 50 mls @ 25 mls/hr IV ONETIME ONE Stop: 05/21/18 09:59 Last Admin: 05/21/18 09:54 Dose: 25 mls/hr Sodium Chloride (Normal Saline) 1,000 mls @ 75 mls/hr IV ASDIRECTED [facility] Last Infusion: 05/21/18 21:00 Dose: 25 mls/hr Meropenem/Sodium Chloride 500 (mg/ Premix) 50 mls @ 100 mls/hr IV Q6H [facility] Last Admin: 05/23/18 14:19 Dose: 100 mls/hr Sodium Chloride (Normal Saline) 1,000 mls @ 25 mls/hr IV ASDIRECTED [facility] Lactated Ringer's (Ringers, Lactated) 1,000 mls @ 100 mls/hr IV ASDIRECTED [facility] Stop: 05/22/18 17:00 Last Admin: 05/22/18 11:26 Dose: 100 mls/hr Piperacillin Sod/Tazobactam (Sod 4.5 gm/ Sodium Chloride) 100 mls @ 200 mls/hr IV ONETIME ONE Stop: 05/22/18 20:29 Last Admin: 05/22/18 20:19 Dose: 200 mls/hr Iopamidol (Isovue-300 (61%)) 100 ml IVPUSH ONETIME ONE Stop: 05/22/18 15:26 Last Admin: 05/22/18 15:41 Dose: 100 ml Iopamidol (Isovue-300 (61%)) 100 ml IVPUSH ONETIME ONE Stop: 05/23/18 09:42 Last Admin: 05/23/18 09:50 Dose: 100 ml Levalbuterol HCl (Xopenex) 1.25 mg NEB QID [facility] Lorazepam (Ativan) 1 mg IVPUSH ONETIME ONE Stop: 05/20/18 09:27 Last Admin: 05/20/18 10:16 Dose: 1 mg Magnesium Oxide (Magnesium Oxide) 800 mg GTUBE ONETIME ONE Stop: 05/20/18 12:01 Last Admin: 05/20/18 11:13 Dose: 800 mg Magnesium Sulfate (Pharmacy To Dose - Magnesium Replacement) 1 dose .XX ASDIRECTED [facility] Metoclopramide HCl (Reglan) 5 mg IVPUSH Q6H [facility] Last Admin: 05/18/18 12:25 Dose: 5 mg Metoclopramide HCl (Reglan) 10 mg IVPUSH Q6H [facility] Last Admin: 05/19/18 05:05 Dose: Not Given Metoprolol Tartrate (Lopressor) 5 mg IVPUSH Q4H PRN PRN Reason: Tachycardia Last Admin: 05/20/18 03:20 Dose: 5 mg Metoprolol Tartrate (Lopressor) 25 mg PO Q12H [facility] Last Admin: 05/20/18 20:20 Dose: 25 mg Metoprolol Tartrate (Lopressor) 25 mg PO ONETIME ONE Stop: 05/20/18 14:06 Last Admin: 05/20/18 14:13 Dose: 25 mg Midodrine (Midodrine) 5 mg PO TIDAC [facility] Stop: 05/18/18 07:01 Last Admin: 05/18/18 06:34 Dose: 5 mg Midodrine (Midodrine) 5 mg PO TIDAC [facility] Last Admin: 05/19/18 17:09 Dose: 5 mg Midodrine (Midodrine) 5 mg PO TIDAC [facility] Non-Formulary Medication (Lactose-Reduced Food/Fiber [Jevity 1.2 Ugo Liquid]) 260 ml GTUBE 5XDAY [facility] Last Admin: 05/17/18 11:31 Dose: Not Given Non-Formulary Medication (Water [Water]) 100 ml GTUBE TID [facility] Last Admin: 05/17/18 10:25 Dose: Not Given Potassium Chloride (Potassium Chloride Solution) 20 meq PO BID [facility] Last Admin: 05/16/18 20:52 Dose: 20 meq Potassium Chloride (Pharmacy To Dose - Potassium Replacement) 1 dose .XX ASDIRECTED [facility] Potassium Chloride (Potassium Chloride Solution) 20 meq PO BID [facility] Last Admin: 05/19/18 20:43 Dose: 20 meq Potassium Chloride (Potassium Chloride Solution) 40 meq PO BID [facility] Potassium Chloride (Klor-Con M20) 60 meq PO ONETIME ONE Stop: 05/20/18 09:01 Last Admin: 05/20/18 08:57 Dose: 60 meq Potassium Chloride (Potassium Chloride Solution) 40 meq PO BID [facility] Last Admin: 05/21/18 21:59 Dose: Not Given Sodium Chloride (Saline Flush) 10 ml FLUSH ONETIME PRN PRN Reason: IV FLUSH Stop: 05/23/18 12:00 Vancomycin HCl (Pharmacy To Dose - Vancomycin) 0 dose .XX ASDIRECTED PRN PRN Reason: RX TO DOSE VANCOMYCIN
[2018-05-24] MEDS: levETIRAcetam Soln 500 MG/5 ML Cup GTUBE SCH (08:07)
[2018-05-24] MEDS: Enoxaparin 40 MG/0.4 ML Syringe SUBCUT SCH (08:07)
[2018-05-24] MEDS: Potassium Chloride 10% 20 MEQ/15 ML Soln 15 ML UD Cup PO SCH (08:07)
[2018-05-24] MEDS: Diltiazem 240 MG Cap.ER PO SCH (08:08)
[2018-05-24] MEDS: Cholecalciferol (Vitamin D3) 1,000 Unit Tab GTUBE SCH (08:08)
[2018-05-24] MEDS: Saccharomyces Boulardii (Probiotic) 250 MG Cap PO SCH ×2 (08:08→14:15)
[2018-05-24] MEDS: Magnesium Oxide 400 MG Tab GTUBE SCH (08:09)
[2018-05-24] MEDS: FLUoxetine 10 MG Cap GTUBE SCH (08:10)
[2018-05-24] MEDS: LORazepam 0.5 MG Tab GTUBE SCH (08:11)
[2018-05-24] MEDS: tiZANidine 4 MG Tab GTUBE SCH ×2 (08:11→14:15)
[2018-05-24] MEDS: Nystatin Crm 30 GM Tube TOP SCH (08:14)
--- NOTE | 2018-05-24 08:43 | CR ---
Chest: Portable view of the chest was obtained. Comparison: Prior chest x-ray of 05/22/18. Right-sided pleural effusion is seen with right-sided parenchymal density. Minimal atelectasis within the left base is seen. Heart size is normal. Impression: 1. Continued right-sided pleural effusion with right lower lobe lung consolidation. 2. Small amount of atelectasis within the left base. 3. No significant change from previous study is seen. Diagnostic code #3
[2018-05-24] MEDS: Bisacodyl 10 MG Supp RECTAL PRN (09:58)
[2018-05-24 17:11] VITALS: BP 118/66
== END 2018-05-24 15:06 | DRG 872 ==
LOC: JD.ED 06:25 → JD.MS 09:40 → JD.ICU 05-17 01:26
PROVIDERS: ADMIT Internal Medicine; ATTEND Internal Medicine
DX: A41.9 Sepsis, unspecified organism (principal); E87.3 Alkalosis; N39.0 Urinary tract infection, site not specified; K56.7 Ileus, unspecified; R47.01 Aphasia; N13.6 Pyonephrosis; G35 Multiple sclerosis; N31.9 Neuromuscular dysfunction of bladder, unspecified; G30.9 Alzheimer's disease, unspecified; F02.80 Dementia in other diseases classified elsewhere, unspecified severity, without behavioral disturbance, psychotic disturbance, mood disturbance, and anxiety; M54.9 Dorsalgia, unspecified; D64.9 Anemia, unspecified; E11.9 Type 2 diabetes mellitus without complications; G89.29 Other chronic pain; M19.90 Unspecified osteoarthritis, unspecified site; M81.0 Age-related osteoporosis without current pathological fracture; F41.9 Anxiety disorder, unspecified; F32.9 Major depressive disorder, single episode, unspecified; R13.10 Dysphagia, unspecified; R50.9 Fever, unspecified; R41.82 Altered mental status, unspecified; R56.9 Unspecified convulsions; G47.00 Insomnia, unspecified; D47.3 Essential (hemorrhagic) thrombocythemia; I95.9 Hypotension, unspecified; R00.0 Tachycardia, unspecified; R33.9 Retention of urine, unspecified; G40.909 Epilepsy, unspecified, not intractable, without status epilepticus; E11.22 Type 2 diabetes mellitus with diabetic chronic kidney disease; N18.9 Chronic kidney disease, unspecified; B95.2 Enterococcus as the cause of diseases classified elsewhere; E83.42 Hypomagnesemia; E88.09 Other disorders of plasma-protein metabolism, not elsewhere classified; E87.6 Hypokalemia; T50.2X5A Adverse effect of carbonic-anhydrase inhibitors, benzothiadiazides and other diuretics, initial encounter; D63.8 Anemia in other chronic diseases classified elsewhere; K59.00 Constipation, unspecified; Z74.01 Bed confinement status; Z51.5 Encounter for palliative care; Z66 Do not resuscitate; Z93.1 Gastrostomy status; Z86.73 Personal history of transient ischemic attack (TIA), and cerebral infarction without residual deficits; Z86.718 Personal history of other venous thrombosis and embolism; Z87.01 Personal history of pneumonia (recurrent); Z79.899 Other long term (current) drug therapy; Z86.14 Personal history of Methicillin resistant Staphylococcus aureus infection
CPT/HCPCS: 36415; 36600; 71045; 80053; 81001; 82803; 83605; 83735; 85007; 85027; 87040 ×2; 87086; 87088; 87186; 87804 ×2; 93005; 96365; 96366; 99285; J2543; J7030; J7040; 36430; 51702; 71260; 71260-26; 74018; 74018-26; 74177; 74177-26; 80048; 80202; 82150; 82247; 82270; 82533; 83540; 83690; 83880; 84145; 84439; 84443; 84466; 85018; 85025; 86140; 86738; 86850; 86900; 86901; 86922; 87641; 94640; 94761; 99284; A9270-GY; J0360; J1650; J1720; J1940; J1956; J2060; J2185; J2765; J3370; J3475; J3480; J3490; J7042; J7050; J7060; J7120; J7612-GY; P9016; Q9967

== ENCOUNTER 2020-10-13 20:54 | Inpatient (IN) | payer MEDICAID ==
[2020-10-13] MEDS ORDERED: Sodium Chloride 0.9% 10 ML Syringe FLUSH PRN (21:08)
[2020-10-13] MEDS ORDERED: Lactated Ringers 1,000 ML IV SCH (21:15)
--- NOTE | 2020-10-13 21:40 | EDM.PDOC ---
ED HPI GENERAL MEDICAL PROBLEM - General Chief Complaint: Possible Sepsis Stated Complaint: [facility] Time Seen by Provider: 10/13/20 20:57 Source of Information: Reports: RN Notes Reviewed History Limitations: Reports: Physical Impairment (Patient unresponsive) - History of Present Illness INITIAL COMMENTS - FREE TEXT/NARRATIVE: Ms. Simon is an unfortunate 59-year-old woman who is now brought to the ED by EMS from [facility] with a report that she was found unresponsive in bed by [facility] staff, with the last known check about 30 to 40 minutes prior. Her BP was 60/40, and it was noted that her skin was mottled. The [facility] staff reported to EMS that the patient's urine output via her chronic indwelling [place] had been low today. We are told that the patient is DNR/DNI, and that she was recently removed from hospice, as she was "getting better". Here in the ED, the patient's initial vitals find her to be hypotensive at 75/48 with tachycardia 122 bpm. She is afebrile, saturating 93% on 2 L of oxygen per nasal cannula. She is unresponsive. Recent review of systems is unobtainable. PMHx/PSHx/SocHx per prior medical records. The patient's PCP is Dr. Ron Khan. - Related Data Allergies Allergy/AdvReac Type Severity Reaction Status Date / Time No Known Allergies Allergy Verified 10/13/20 21:03 Home Meds: Home Meds LORazepam [Ativan ORAL Concentrate 1MG/0.5 ML U/D] 0.5 mg GTUBE TID 10/14/20 [History] Morphine [Morphine 10 MG/5 ML] 5 mg GTUBE ASDIRECTED PRN 10/14/20 [History] Past Medical History Cardiovascular History: Reports: Blood Clots/VTE/DVT Genitourinary History: Reports: Retention, Urinary (chronic indwelling [place] catheter) Musculoskeletal History: Reports: Osteoarthritis, Osteoporosis Neurological History: Reports: Alzheimers Disease, CVA, MS, Seizure, TIA Psychiatric History: Reports: Anxiety, Depression, Other (See Below) (Insomnia) Endocrine/Metabolic History: Reports: Diabetes, Type II - Infectious Disease History Infectious Disease History: Reports: Extended Spectrum Beta-Lactamase (ESBL) - Past Surgical History Endocrine Surgical History: Reports: None Other Endocrine Surgeries/Procedures: anemia, hypokalemia, eosinophilia, hypomagnesium Musculoskeletal Surgical History: Reports: None Other Musculoskeletal Surgeries/Procedures:: contractures of muscles Social & Family History - Tobacco Use Second Hand Smoke Exposure: No - Living Situation & Occupation Living situation: Reports: Extended Care Facility ([facility]) Occupation: Disabled ED ROS GENERAL - Review of Systems Review Of Systems: Unable To Obtain Reason Not Obtained: Patient's condition ED EXAM, SEPSIS - Physical Exam Exam: See Below Exam Limited By: Physical Impairment (patient unresponsive) General Appearance: Obtunded Eye Exam: Bilateral Eye: Other (pupils pinpoint) Ears: Normal External Exam Nose: Other (Cool nose:forehead) Throat/Mouth: Normal Inspection, Normal Lips, No Airway Compromise Head: Atraumatic, Normocephalic Neck: Normal Inspection Respiratory/Chest: No Respiratory Distress, Lungs Clear, Normal Breath Sounds (limited exam due to patient not taking deep breaths), No Accessory Muscle Use Cardiovascular: Normal Peripheral Pulses, No Gallop, No JVD, No Murmur, No Rub, Tachycardia (regular) Peripheral Pulses: 1+: Radial (L), Radial (R) GI/Abdominal Exam: Normal Bowel Sounds, Soft, No Organomegaly, No Distention, No Abnormal Bruit, No Mass, Other (PEG tube site C/D/I) Back: Normal Inspection, Full Range of Motion, NT Extremities: Normal Range of Motion, Mottled (x 4), Other (Cool knee:thigh) Neurological: Unresponsive Skin: Dry, Intact, No Rash, Cool, Mottled #1 Interpretation EKG Date: 10/13/20 Time: 21:55 Rhythm: Other (Sinus tachycardia) Rate (Beats/Min): 103 [place]: Normal P-Wave: Present QRS: Other (Early transition) ST-T: Normal QT: Normal Comparison: Change From Previous EKG (Normal transition 05/16/2018) Course - Vital Signs Last Recorded V/S: Last Vital Signs Temp 35.9 C L 10/14/20 09:54 Pulse 88 10/14/20 09:07 Resp 16 10/14/20 06:33 BP 90/47 L 10/14/20 09:07 Pulse Ox 98 10/14/20 09:07 - Orders/Labs/Meds Orders: Active Orders 24 hr Category Date Time Status Blood Pressure Mgt: Sepsis [RC] Q15MX2 Care 10/13/20 21:12 Active Insert [place] Catheter [Insert Urinary Catheter] [OM.PC] Care 10/13/20 21:15 Ordered Q24H Urinary Catheter Assessment [RC] ASDIRECTED Care 10/13/20 21:16 Active Urinary Catheter Removal [RC] PER UNIT ROUTINE Care 10/13/20 21:15 Active BLOOD CULTURE [MREF] Stat Lab 10/13/20 21:50 Received CULTURE URINE [MREF] Stat Lab 10/13/20 22:19 Received Lactated Ringers [Ringers, Lactated] 1,000 ml Med 10/13/20 21:15 Active IV ASDIRECTED Norepinephrine [Levophed] 4 mg Med 10/14/20 06:00 Active Dextrose 5% in Water 246 ml IV TITRATE Sodium Chloride 0.9% [Normal Saline] 1,000 ml Med 10/14/20 04:45 Active IV ASDIRECTED Sodium Chloride 0.9% [Saline Flush] Med 10/13/20 21:08 Active 10 ml FLUSH ASDIRECTED PRN Blood Culture x2 Reflex Set [OM.PC] Stat Oth 10/13/20 21:09 Ordered Pulse Oximetry Continuous Monitoring [OM.PC] Routine Oth 10/13/20 21:08 Active Saline Lock Insert [OM.PC] Stat Oth 10/13/20 21:09 Ordered EKG 12 Lead [EK] Stat Ther 10/13/20 21:08 Ordered Medication Orders Acetaminophen (Acetaminophen 325 Mg Tab) 650 mg GTUBE Q4H PRN PRN Reason: Pain/Fever Atropine Sulfate (Atropine 1% Ophth Soln 5 Ml Bottle) 0 ml SL Q4H PRN PRN Reason: extra secretions Fluoxetine HCl (Fluoxetine 10 Mg Cap) 10 mg GTUBE DAILY [facility] Heparin Sodium (Porcine) (Heparin Sodium 5,000 Units/Ml Vial) 5,000 units SUBCUT Q8H [facility] Lactated Ringer's (Ringers, Lactated) 1,000 mls @ 999 mls/hr IV ASDIRECTED [facility] Last Admin: 10/13/20 21:24 Dose: 999 mls/hr Documented by: CHRISTEL Sodium Chloride (Normal Saline) 1,000 mls @ 125 mls/hr IV ASDIRECTED [facility] Last Admin: 10/14/20 04:49 Dose: 125 mls/hr Documented by: CHRISTEL Norepinephrine Bitartrate 4 mg (/ Dextrose/Water) 250 mls @ 18.75 mls/hr IV TITRATE [facility]; Protocol Last Admin: 10/14/20 06:14 Dose: 5 mcg/min, 18.75 mls/hr Documented by: CHRISTEL Levofloxacin/Dextrose 250 mg/ (Premix) 50 mls @ 50 mls/hr IV Q24H [facility] Lactulose (Lactulose Soln 10 Gm/15 Ml 30 Ml Ud Cup) 10 gm GTUBE DAILY PRN PRN Reason: constipation Levetiracetam (Levetiracetam Soln 500 Mg/5 Ml Cup) 1,000 mg GTUBE BID [facility] Lorazepam (Lorazepam 0.5 Mg Tab) 0.5 mg GTUBE TID [facility] Morphine Sulfate (Morphine 10 Mg/0.5 Ml Oral Syringe) 5 mg GTUBE Q30M PRN PRN Reason: moderate pain/SOB Morphine Sulfate (Morphine 2 Mg/Ml Syringe) 2 mg IVPUSH Q2H PRN PRN Reason: Pain Last Admin: 10/14/20 11:13 Dose: 2 mg Documented by: MERCY Ondansetron HCl (Ondansetron 4 Mg Tab.Dis) 4 mg GTUBE Q6H PRN PRN Reason: Nausea Senna/Docusate Sodium (Docusate Sodium/Sennosides 50-8.6 Mg Tab) 2 tab GTUBE BID [facility] Sodium Chloride (Sodium Chloride 0.9% 10 Ml Syringe) 10 ml FLUSH ASDIRECTED PRN PRN Reason: Keep Vein Open Last Admin: 10/13/20 21:24 Dose: 10 ml Documented by: CHRISTEL Tizanidine HCl (Tizanidine 4 Mg Tab) 2 mg GTUBE TID [facility] Labs: Laboratory Tests 10/13/20 10/13/20 10/13/20 Range/Units 21:24 21:50 21:50 WBC 17.33 H (3.98-10.04) K/mm3 RBC 3.96 L (3.98-5.22) M/mm3 Hgb 12.2 D (11.2-15.7) gm/dl Hct 35.9 (34.1-44.9) % MCV 90.7 D (79.4-94.8) fl MCH 30.8 (25.6-32.2) pg MCHC 34.0 (32.2-35.5) g/dl RDW Std Deviation 56.5 H (36.4-46.3) fL Plt Count 215 D (182-369) K/mm3 MPV 10.8 (9.4-12.3) fl Neutrophils % (Manual) 83 H (40-60) % Band Neutrophils % 4 (0-10) % Lymphocytes % (Manual) 6 L (20-40) % Atypical Lymphs % 0 % Monocytes % (Manual) 7 (2-10) % Eosinophils % (Manual) 0 L (0.7-5.8) % Basophils % (Manual) 0 L (0.1-1.2) Platelet Estimate Adequate Anisocytosis 1+ slight RBC Morph Comment Not Reportable Puncture Site Lt radial ABG pH 7.35 (7.35-7.45) ABG pCO2 52.4 H (35.0-45.0) mmHg ABG pO2 21.0 L* (80.0-100.0) mmHg ABG HCO3 27.8 H (22.0-26.0) meq/L ABG O2 Saturation 23.2 L (96.0-97.0) % ABG Base Excess 1.8 (-2-2.0) Danny Test Positive A-a Gradient 113 mmHg O2 Delivery Device Nasal cannula Oxygen Flow Rate 2.0 FiO2 28.00 (21.00-100.00) % Blood Gas Comments Mixed venous Sodium 135 L (136-145) mEq/L Potassium 4.6 (3.5-5.1) mEq/L Chloride 97 L (98-107) mEq/L Carbon Dioxide 29 (21-32) mEq/L Anion Gap 13.6 (5-15) BUN 40 H (7-18) mg/dL Creatinine 2.3 H D (0.55-1.02) mg/dL Est Cr Clr Drug Dosing TNP Estimated GFR (MDRD) 22 (>60) mL/min BUN/Creatinine Ratio 17.4 (14-18) Glucose 146 H (70-99) mg/dL Lactic Acid (0.4-2.0) mmol/L Calcium 10.1 (8.5-10.1) mg/dL Magnesium (1.8-2.4) mg/dL Total Bilirubin 0.5 (0.2-1.0) mg/dL AST 17 (15-37) U/L ALT 25 (14-59) U/L Alkaline Phosphatase 79 (46-116) U/L Troponin I < 0.017 (0.00-0.056) ng/mL C-Reactive Protein 26.2 H* (<1.0) mg/dL Total Protein 7.0 (6.4-8.2) g/dl Albumin 2.4 L (3.4-5.0) g/dl Globulin 4.6 gm/dL Albumin/Globulin Ratio 0.5 L (1-2) Urine Color (Yellow) Urine Appearance (Clear) Urine pH (5.0-8.0) Ur Specific [place] (1.005-1.030) Urine Protein (Negative) Urine Glucose (UA) (Negative) Urine Ketones (Negative) Urine Occult Blood (Negative) Urine Nitrite (Negative) Urine Bilirubin (Negative) Urine Urobilinogen (0.2-1.0) Ur Leukocyte Esterase (Negative) Urine RBC (0-5) /hpf Urine WBC (0-5) /hpf Ur Squamous Epith Cells (0-5) /hpf Triple Phos Crystals (NONE) /hpf Amorphous Sediment (NOT SEEN) /hpf Urine Bacteria (FEW) /hpf Urine Mucus (FEW) /hpf SARS-CoV-2 RNA (FREDI) (NEGATIVE) 10/13/20 10/13/20 10/13/20 Range/Units 21:50 21:50 22:19 WBC (3.98-10.04) K/mm3 RBC (3.98-5.22) M/mm3 Hgb (11.2-15.7) gm/dl Hct (34.1-44.9) % MCV (79.4-94.8) fl MCH (25.6-32.2) pg MCHC (32.2-35.5) g/dl RDW Std Deviation (36.4-46.3) fL Plt Count (182-369) K/mm3 MPV (9.4-12.3) fl Neutrophils % (Manual) (40-60) % Band Neutrophils % (0-10) % Lymphocytes % (Manual) (20-40) % Atypical Lymphs % % Monocytes % (Manual) (2-10) % Eosinophils % (Manual) (0.7-5.8) % Basophils % (Manual) (0.1-1.2) Platelet Estimate Anisocytosis RBC Morph Comment Puncture Site ABG pH (7.35-7.45) ABG pCO2 (35.0-45.0) mmHg ABG pO2 (80.0-100.0) mmHg ABG HCO3 (22.0-26.0) meq/L ABG O2 Saturation (96.0-97.0) % ABG Base Excess (-2-2.0) Danny Test A-a Gradient mmHg O2 Delivery Device Oxygen Flow Rate FiO2 (21.00-100.00) % Blood Gas Comments Sodium (136-145) mEq/L Potassium (3.5-5.1) mEq/L Chloride (98-107) mEq/L Carbon Dioxide (21-32) mEq/L Anion Gap (5-15) BUN (7-18) mg/dL Creatinine (0.55-1.02) mg/dL Est Cr Clr Drug Dosing Estimated GFR (MDRD) (>60) mL/min BUN/Creatinine Ratio (14-18) Glucose (70-99) mg/dL Lactic Acid 4.0 H* (0.4-2.0) mmol/L Calcium (8.5-10.1) mg/dL Magnesium 2.0 (1.8-2.4) mg/dL Total Bilirubin (0.2-1.0) mg/dL AST (15-37) U/L ALT (14-59) U/L Alkaline Phosphatase (46-116) U/L Troponin I (0.00-0.056) ng/mL C-Reactive Protein (<1.0) mg/dL Total Protein (6.4-8.2) g/dl Albumin (3.4-5.0) g/dl Globulin gm/dL Albumin/Globulin Ratio (1-2) Urine Color Yellow (Yellow) Urine Appearance Turbid H (Clear) Urine pH 8.5 H (5.0-8.0) Ur Specific [place] 1.015 (1.005-1.030) Urine Protein 3+ H (Negative) Urine Glucose (UA) Negative (Negative) Urine Ketones Negative (Negative) Urine Occult Blood 3+ H (Negative) Urine Nitrite Negative (Negative) Urine Bilirubin Negative (Negative) Urine Urobilinogen 0.2 (0.2-1.0) Ur Leukocyte Esterase 3+ H (Negative) Urine RBC 50-75 H (0-5) /hpf Urine WBC 40-50 H (0-5) /hpf Ur Squamous Epith Cells 0-5 (0-5) /hpf Triple Phos Crystals Few H (NONE) /hpf Amorphous Sediment Few H (NOT SEEN) /hpf Urine Bacteria Many H (FEW) /hpf Urine Mucus Few (FEW) /hpf SARS-CoV-2 RNA (FREDI) (NEGATIVE) 10/13/20 10/14/20 Range/Units 22:25 01:03 WBC (3.98-10.04) K/mm3 RBC (3.98-5.22) M/mm3 Hgb (11.2-15.7) gm/dl Hct (34.1-44.9) % MCV (79.4-94.8) fl MCH (25.6-32.2) pg MCHC (32.2-35.5) g/dl RDW Std Deviation (36.4-46.3) fL Plt Count (182-369) K/mm3 MPV (9.4-12.3) fl Neutrophils % (Manual) (40-60) % Band Neutrophils % (0-10) % Lymphocytes % (Manual) (20-40) % Atypical Lymphs % % Monocytes % (Manual) (2-10) % Eosinophils % (Manual) (0.7-5.8) % Basophils % (Manual) (0.1-1.2) Platelet Estimate Anisocytosis RBC Morph Comment Puncture Site ABG pH (7.35-7.45) ABG pCO2 (35.0-45.0) mmHg ABG pO2 (80.0-100.0) mmHg ABG HCO3 (22.0-26.0) meq/L ABG O2 Saturation (96.0-97.0) % ABG Base Excess (-2-2.0) Danny Test A-a Gradient mmHg O2 Delivery Device Oxygen Flow Rate FiO2 (21.00-100.00) % Blood Gas Comments Sodium (136-145) mEq/L Potassium (3.5-5.1) mEq/L Chloride (98-107) mEq/L Carbon Dioxide (21-32) mEq/L Anion Gap (5-15) BUN (7-18) mg/dL Creatinine (0.55-1.02) mg/dL Est Cr Clr Drug Dosing Estimated GFR (MDRD) (>60) mL/min BUN/Creatinine Ratio (14-18) Glucose (70-99) mg/dL Lactic Acid 3.5 H* (0.4-2.0) mmol/L Calcium (8.5-10.1) mg/dL Magnesium (1.8-2.4) mg/dL Total Bilirubin (0.2-1.0) mg/dL AST (15-37) U/L ALT (14-59) U/L Alkaline Phosphatase (46-116) U/L Troponin I (0.00-0.056) ng/mL C-Reactive Protein (<1.0) mg/dL Total Protein (6.4-8.2) g/dl Albumin (3.4-5.0) g/dl Globulin gm/dL Albumin/Globulin Ratio (1-2) Urine Color (Yellow) Urine Appearance (Clear) Urine pH (5.0-8.0) Ur Specific [place] (1.005-1.030) Urine Protein (Negative) Urine Glucose (UA) (Negative) Urine Ketones (Negative) Urine Occult Blood (Negative) Urine Nitrite (Negative) Urine Bilirubin (Negative) Urine Urobilinogen (0.2-1.0) Ur Leukocyte Esterase (Negative) Urine RBC (0-5) /hpf Urine WBC (0-5) /hpf Ur Squamous Epith Cells (0-5) /hpf Triple Phos Crystals (NONE) /hpf Amorphous Sediment (NOT SEEN) /hpf Urine Bacteria (FEW) /hpf Urine Mucus (FEW) /hpf SARS-CoV-2 RNA (FREDI) Negative (NEGATIVE) Meds: Medications Generic Name Dose Route Start Last Admin Trade Name Freq PRN Reason Stop Dose Admin Acetaminophen 650 mg 10/14/20 08:24 Acetaminophen 325 Mg Tab GTUBE Q4H PRN Pain/Fever Atropine Sulfate 0 ml 10/14/20 08:24 Atropine 1% Ophth Soln 5 Ml Bottle SL Q4H PRN extra secretions Fluoxetine HCl 10 mg 10/14/20 09:00 Fluoxetine 10 Mg Cap GTUBE DAILY [facility] Heparin Sodium (Porcine) 5,000 units 10/14/20 08:30 Heparin Sodium 5,000 Units/Ml Vial SUBCUT Q8H [facility] Lactated Ringer's 1,000 mls @ 999 mls/hr 10/13/20 21:15 10/13/20 21:24 Ringers, Lactated IV 999 mls/hr ASDIRECTED [facility] Administration Sodium Chloride 1,000 mls @ 125 mls/hr 10/14/20 04:45 10/14/20 04:49 Normal Saline IV 125 mls/hr ASDIRECTED [facility] Administration Norepinephrine Bitartrate 4 mg 250 mls @ 18.75 mls/hr 10/14/20 06:00 10/14/20 06:14 / Dextrose/Water IV 5 mcg/min TITRATE [facility]I 18.75 mls/hr Administration Protocol 5 MCG/MIN Levofloxacin/Dextrose 250 mg/ 50 mls @ 50 mls/hr 10/15/20 23:30 Premix IV Q24H [facility] Lactulose 10 gm 10/14/20 08:24 Lactulose Soln 10 Gm/15 Ml 30 Ml Ud Cup GTUBE DAILY PRN constipation Levetiracetam 1,000 mg 10/14/20 09:00 Levetiracetam Soln 500 Mg/5 Ml Cup GTUBE BID [facility] Lorazepam 0.5 mg 10/14/20 09:00 Lorazepam 0.5 Mg Tab GTUBE TID [facility] Morphine Sulfate 5 mg 10/14/20 08:58 Morphine 10 Mg/0.5 Ml Oral Syringe GTUBE Q30M PRN moderate pain/SOB Morphine Sulfate 2 mg 10/14/20 11:00 10/14/20 11:13 Morphine 2 Mg/Ml Syringe IVPUSH 2 mg Q2H PRN Administration Pain Ondansetron HCl 4 mg 10/14/20 08:59 Ondansetron 4 Mg Tab.Dis GTUBE Q6H PRN Nausea Senna/Docusate Sodium 2 tab 10/14/20 09:00 Docusate Sodium/Sennosides 50-8.6 Mg Tab GTUBE BID [facility] Sodium Chloride 10 ml 10/13/20 21:08 10/13/20 21:24 Sodium Chloride 0.9% 10 Ml Syringe FLUSH 10 ml ASDIRECTED PRN Administration Keep Vein Open Tizanidine HCl 2 mg 10/14/20 09:00 Tizanidine 4 Mg Tab GTUBE TID [facility] Discontinued Medications Generic Name Dose Route Start Last Admin Trade Name Freq PRN Reason Stop Dose Admin Lactated Ringer's 1,000 mls @ 999 mls/hr 10/13/20 22:00 10/13/20 22:00 Ringers, Lactated IV 10/13/20 23:00 999 mls/hr .BOLUS ONE Administration Levofloxacin/Dextrose Confirm 10/13/20 23:30 10/14/20 01:18 Levaquin In D5w 750 Mg/150 Ml Administered 10/13/20 23:31 Not Given Dose 150 mls @ as directed IV .STK-MED ONE Levofloxacin/Dextrose 750 mg/ 150 mls @ 100 mls/hr 10/13/20 23:25 10/13/20 23:30 Premix IV 10/14/20 00:54 100 mls/hr ONETIME STA Administration Morphine Sulfate 5 mg 10/14/20 01:49 10/14/20 02:04 Morphine 4 Mg/Ml Syringe IVPUSH 10/14/20 01:50 5 mg ONETIME STA Administration Non-Formulary Medication 850 ml 10/14/20 09:00 Lactose-Reduced Food/Fiber [Jevity 1.5 Ugo Liquid] GTUBE DAILY [facility] - Re-Assessments/Exams Free Text/Narrative Re-Assessment/Exam: 10/13/20 21:39 As above, the patient is brought from [facility] after being found unresponsive in bed, with a BP of 60/40 and mottled skin. The [facility] reported a low urine output via her chronic indwelling [place] today. Here in the ED, she is hypotensive and tachycardic, saturating 93% on 2 L of oxygen per nasal cannula. She does indeed have mottled skin, with a cool nose-forehead and knee-thigh, strongly suggestive of sepsis. I have ordered a work-up that includes numerous blood tests, 2 sets of blood cultures, an ABG, a urinalysis via a new [place] catheter, a urine culture, a swab for the SARS-CoV-2 virus, a portable chest x-ray, and an ECG. In the meantime, the patient will be given a 1 L bolus of LR, however, if her blood pressure does not begin to improve soon, I will start Levophed. Of note, the patient is a DNR/DNI. We are told that she was recently removed from hospice, because she was "getting better". Princess MUNOZ is going to see if she can reach the family to see what their wishes are. 10/13/20 23:20 Portable chest radiograph reviewed. Less than optimal inspiratory effort. The cardiac silhouette is within normal limits. No pulmonary vascular congestion. No pleural effusions seen on this AP view. No focal infiltrate. No pneumothorax. Formal read per the Radiologist pending. The patient's CBC is remarkable for leukocytosis of 17.33, with 4% bandemia, and the remainder of her CBC being unremarkable. Her CMP is remarkable for a BUN/Cr elevated at 40/2.3, and mild hyperglycemia of 146, with remainder of her CMP being unremarkable. Her magnesium level is within normal limits at 2.0. Her lactic acid level is elevated at 4.0. Her CRP is significantly elevated at 26.2. Her troponin is undetectably low. Her ABG is likely a venous draw, representing a primary respiratory acidosis wit h secondary metabolic alkalosis. Reviewing prior labs, the patient's BUN/Cr were 29/0.9 on 05/24/2018. Based on the above, I have ordered Levaquin 750 mg IVPB. 10/13/20 23:39 The patient's urinalysis is remarkable for turbid appearance, 3+ occult blood with 50-75 RBCs, 3+ leukocyte esterase with 40-50 WBCs, nitrate negative with many bacteria, and 0-5 squamous epithelial cells. 10/14/2020 02:30 The patient's repeat lactic acid has improved somewhat, now 3.5. 10/14/20 06:00 The patient was given 500 mL of IV fluid per EMS, and has received 2 full liters here, plus 125 ml/hr after that. For the most part, her MAP has been between 60-65, however, at this time, it is down to 59, with a BP of 80/48, with a HR of 115 bpm. I have therefore ordered norepinephrine (Levophed) to be started at 5 mcg/min. 10/14/20 06:32 Notified by Hailee MUNOZ that we will have an ICU bed available sometime this morning. Case discussed with Dr. Brooks Alvares, Hospitalist, at 06:29. He accepted the patient for admission to the ICU, once a bed becomes available. 10/14/20 08:15 Notified that some family members will be here in about 2 hours, and that Dr. Armando will talk to them at that time about the possibility of returning the patient to hospice. The patient will remain in the ED until then. Departure - Departure Time of Disposition: 06:30 Disposition: Admitted As Inpatient 68 Condition: Serious Clinical Impression: Septic shock, Pyelonephritis, Acute renal insufficiency - Discharge Information *PRESCRIPTION DRUG MONITORING PROGRAM REVIEWED*: Not Applicable *COPY OF PRESCRIPTION DRUG MONITORING REPORT IN PATIENT DEVIKA: Not Applicable Sepsis Event Note (ED) - Evaluation Sepsis Screening Result: Possible Severe Sepsis Risk - Focused Exam Vital Signs: Vital Signs Pulse Resp BP Pulse Ox 10/14/20 07:38 112 H 92/52 L 92 L 10/14/20 06:33 103 H 16 108/51 L 95 10/14/20 06:27 96 16 80/51 L 92 L 10/14/20 04:29 122 H 18 91/54 L 92 L 10/14/20 04:22 123 H 85/62 L 95 10/14/20 03:35 122 H 18 82/39 L 93 L - My Orders Last 24 Hours: My Active Orders 10/13/20 21:08 Sodium Chloride 0.9% [Saline Flush] 10 ml FLUSH ASDIRECTED PRN Pulse Oximetry Continuous Monitoring [OM.PC] Routine EKG 12 Lead [EK] Stat 10/13/20 21:09 Blood Culture x2 Reflex Set [OM.PC] Stat Saline Lock Insert [OM.PC] Stat 10/13/20 21:12 Blood Pressure Mgt: Sepsis [RC] Q15MX2 10/13/20 21:15 Insert [place] Catheter [Insert Urinary Catheter] [OM.PC] Q24H Urinary Catheter Removal [RC] PER UNIT ROUTINE Lactated Ringers [Ringers, Lactated] 1,000 ml IV ASDIRECTED 10/13/20 21:16 Urinary Catheter Assessment [RC] ASDIRECTED 10/13/20 21:50 BLOOD CULTURE [MREF] Stat 10/13/20 22:19 CULTURE URINE [MREF] Stat 10/14/20 04:45 Sodium Chloride 0.9% [Normal Saline] 1,000 ml IV ASDIRECTED 10/14/20 06:00 Norepinephrine [Levophed] 4 mg Dextrose 5% in Water 246 ml IV TITRATE - Assessment/Plan Last 24 Hours: My Active Orders 10/13/20 21:08 Sodium Chloride 0.9% [Saline Flush] 10 ml FLUSH ASDIRECTED PRN Pulse Oximetry Continuous Monitoring [OM.PC] Routine EKG 12 Lead [EK] Stat 10/13/20 21:09 Blood Culture x2 Reflex Set [OM.PC] Stat Saline Lock Insert [OM.PC] Stat 10/13/20 21:12 Blood Pressure Mgt: Sepsis [RC] [id number] 10/13/20 21:15 Insert [place] Catheter [Insert Urinary Catheter] [OM.PC] Q24H Urinary Catheter Removal [RC] PER UNIT ROUTINE Lactated Ringers [Ringers, Lactated] 1,000 ml IV ASDIRECTED 10/13/20 21:16 Urinary Catheter Assessment [RC] ASDIRECTED 10/13/20 21:50 BLOOD CULTURE [MREF] Stat 10/13/20 22:19 CULTURE URINE [MREF] Stat 10/14/20 04:45 Sodium Chloride 0.9% [Normal Saline] 1,000 ml IV ASDIRECTED 10/14/20 06:00 Norepinephrine [Levophed] 4 mg Dextrose 5% in Water 246 ml IV TITRATE
[2020-10-13] MEDS ORDERED: Lactated Ringers 1,000 ML IV ONE (22:00)
[2020-10-13] MEDS ORDERED: Levofloxacin/Dextrose 5%-Water 750 MG in Premix Bag 1 BAG IV STA (23:25)
[2020-10-13] MEDS ORDERED: Levofloxacin/Dextrose 5%-Water 150 ML IV ONE (23:30)
[2020-10-14] MEDS ORDERED: Norepinephrine 4 MG in Dextrose 5% in Water 246 ML IV SCH ×4 (00:45→06:00)
[2020-10-14] MEDS ORDERED: Morphine 4 MG/ML Syringe IVPUSH STA (01:49)
[2020-10-14] MEDS ORDERED: Sodium Chloride 0.9% 1,000 ML IV SCH (04:45)
--- NOTE | 2020-10-14 07:04 | PCM.HP.2 ---
H&P History of Present Illness - General Date of Service: 10/14/20 Admit Problem/Dx: Septic shock with likely urinary source. Source of Information: Intermediate Records, Old Records History Limitations: Reports: Other (Patient is nonverbal due to dementia and MS.) - History of Present Illness Initial Comments - Free Text/Narative: The patient is a 59-year-old lady with advanced dementia along with essentially end-stage multiple sclerosis has been brought from detention to the emergency department after being found unresponsive. Prior to presentation the patient's blood pressure was 60/40 and her skin was mottled. The patient is essentially nonverbal and hard able to participate in any meaningful way with her history and physical. Therefore, information has been obtained from her prior charting as well as emergency room visit. Family members are not present yet. The patient at this time is in a DNR/DNI category and there is some question of comfort measures. The patient apparently had been in hospice care prior to this admission and was discharged from hospice as she may have been stable instead of declining. Onset of Symptoms: Reports: Unknown/Unsure Duration of Symptoms: Reports: Day(s): Location: Reports: Generalized Associated Symptoms: Reports: Confusion (Was found unresponsive in detention) - Related Data Allergies/Adverse Reactions: Allergies Allergy/AdvReac Type Severity Reaction Status Date / Time No Known Allergies Allergy Verified 10/13/20 21:03 Home Medications: Home Meds tiZANidine HCl [Zanaflex] 2 mg GTUBE TID 04/06/14 [History] levETIRAcetam [Levetiracetam] 10 ml GTUBE BID 12/23/16 [History] Acetaminophen 650 mg GTUBE Q4H PRN 03/05/18 [History] Atropine 1% [Atropine 1% Ophth Soln] 2 drop PO Q4HR PRN 05/16/18 [History] FLUoxetine [PROzac] 10 mg GTUBE DAILY 05/16/18 [History] Lactulose 15 ml GTUBE DAILY PRN 05/16/18 [History] Ondansetron [Zofran] 4 mg GTUBE Q6H PRN 05/16/18 [History] Sennosides/Docusate Sodium [Senna Plus Tablet] 2 each GTUBE BID 05/16/18 [History] Hyoscyamine Sulfate [Levsin] 0.125 mg PO Q4HR PRN 10/14/20 [History] LORazepam [Ativan ORAL Concentrate 1MG/0.5 ML U/D] 0.5 mg GTUBE TID 10/14/20 [History] Lactose-Reduced Food/Fiber [Jevity 1.5 Ugo Liquid] 850 ml GTUBE DAILY 10/14/20 [History] Morphine [Morphine 10 MG/5 ML] 5 mg GTUBE ASDIRECTED PRN 10/14/20 [History] Triamcinolone Acetonide [Triamcinolone Acetonide 0.1% Crm] 1 applicful TOP DAILY PRN 10/14/20 [History] Water 275 ml GTUBE QID 10/14/20 [History] bisacodyL [Bisacodyl] 10 mg GTUBE DAILY PRN 10/14/20 [History] guaiFENesin/Dextromethorphan [Tussin DM Clear] 5 ml GTUBE Q4HR PRN 10/14/20 [History] Past Medical History HEENT History: Reports: Other (See Below) Other HEENT History: dysphagia,aphasia Cardiovascular History: Reports: Blood Clots/VTE/DVT Other Cardiovascular History: hypomagnesemia, hypokalemia Respiratory History: Reports: Pneumonia, Recurrent Gastrointestinal History: Reports: Other (See Below) Other Gastrointestinal History: kyle-head tube in place Genitourinary History: Reports: Neurogenic Bladder, Retention, Urinary (chronic indwelling [place] catheter), Other (See Below) (Chronic indwelling catheter) Other Genitourinary History: chronic kidney disease Musculoskeletal History: Reports: Osteoarthritis, Osteoporosis Other Musculoskeletal History: MS Neurological History: Reports: Alzheimers Disease, CVA, MS, Seizure, TIA Other Neuro History: encephalopathy, insomnia Psychiatric History: Reports: Anxiety, Depression, Other (See Below) (Insomnia) Other Psychiatric History: insomnia, Endocrine/Metabolic History: Reports: Diabetes, Type II Other Endocrine/Metabolic History: disorders of magnesium metabolism, anemia, hypercalcemia, hypokalemia Hematologic History: Reports: Anemia Other Hematologic History: hyponmagnesemia, septic shock Other Dermatologic History: candidasis, follicular disorder - Infectious Disease History Infectious Disease History: Reports: Extended Spectrum Beta-Lactamase (ESBL) Other Infectious Disease History: ESBL + 03/10/19 (urine culture) - Past Surgical History Head Surgeries/Procedures: Reports: None HEENT Surgical History: Reports: None GI Surgical History: Reports: Other (See Below) Other GI Surgeries/Procedures: leobardo tube present-on jevity for tube feedings Female Surgical History: Reports: None Endocrine Surgical History: Reports: None Other Endocrine Surgeries/Procedures: anemia, hypokalemia, eosinophilia, hypomagnesium Musculoskeletal Surgical History: Reports: None Other Musculoskeletal Surgeries/Procedures:: contractures of muscles Social & Family History - Family History Family Medical History: Unobtainable - Tobacco Use Tobacco Use Status *Q: Unknown Ever Used Tobacco Second Hand Smoke Exposure: No - Caffeine Use Caffeine Use: Reports: None - Living Situation & Occupation Living situation: Reports: Extended Care Facility ([facility]) Occupation: Disabled H&P Review of Systems - Review of Systems: Review Of Systems: Unable To Obtain Reason Not Obtained: Patient nonverbal due to dementia and prior CVA. Exam - Exam Exam: See Below - Vital Signs Vital Signs: Last Vital Signs Temp 37.2 C 10/14/20 03:02 Pulse 103 H 10/14/20 06:33 Resp 16 10/14/20 06:33 BP 108/51 L 10/14/20 06:33 Pulse Ox 95 10/14/20 06:33 Weight: 58.967 kg - Exam Quality Assessment: No: Supplemental Oxygen, DVT Prophylaxis General: Mild Distress. No: Alert (Essentially nonverbal), Oriented HEENT: Conjunctiva Clear. No: Mucosa Moist & [place] (Very dry) Neck: Supple, Trachea Midline Lungs: Decreased Breath Sounds (Globally) Cardiovascular: Regular Rhythm, Tachycardia GI/Abdominal Exam: Normal Bowel Sounds, Soft, No Distention, Other (PEG tube) (Female) Exam: Deferred Rectal (Female) Exam: Deferred Back Exam: No: Normal Inspection (Disabled due to multiple sclerosis), Full Range of Motion (Bedridden) Extremities: No: Normal Inspection (Contractures), Normal Range of Motion (Contractures) Skin: Warm, Dry Neurological: No: Cranial Nerves Intact (Unable to assess), Normal Gait (Bedridden), Normal Speech Psychiatric: No: Alert, Normal Affect - Patient Data Lab Results Last 24 hrs: Laboratory Results - last 24 hr 10/13/20 10/13/20 10/13/20 Range/Units 21:24 21:50 21:50 WBC 17.33 H (3.98-10.04) K/mm3 RBC 3.96 L (3.98-5.22) M/mm3 Hgb 12.2 D (11.2-15.7) gm/dl Hct 35.9 (34.1-44.9) % MCV 90.7 D (79.4-94.8) fl MCH 30.8 (25.6-32.2) pg MCHC 34.0 (32.2-35.5) g/dl RDW Std Deviation 56.5 H (36.4-46.3) fL Plt Count 215 D (182-369) K/mm3 MPV 10.8 (9.4-12.3) fl Neutrophils % (Manual) 83 H (40-60) % Band Neutrophils % 4 (0-10) % Lymphocytes % (Manual) 6 L (20-40) % Atypical Lymphs % 0 % Monocytes % (Manual) 7 (2-10) % Eosinophils % (Manual) 0 L (0.7-5.8) % Basophils % (Manual) 0 L (0.1-1.2) Platelet Estimate Adequate Anisocytosis 1+ slight RBC Morph Comment Not Reportable Puncture Site Lt radial ABG pH 7.35 (7.35-7.45) ABG pCO2 52.4 H (35.0-45.0) mmHg ABG pO2 21.0 L* (80.0-100.0) mmHg ABG HCO3 27.8 H (22.0-26.0) meq/L ABG O2 Saturation 23.2 L (96.0-97.0) % ABG Base Excess 1.8 (-2-2.0) Danny Test Positive A-a Gradient 113 mmHg O2 Delivery Device Nasal cannula Oxygen Flow Rate 2.0 FiO2 28.00 (21.00-100.00) % Blood Gas Comments Mixed venous Sodium 135 L (136-145) mEq/L Potassium 4.6 (3.5-5.1) mEq/L Chloride 97 L (98-107) mEq/L Carbon Dioxide 29 (21-32) mEq/L Anion Gap 13.6 (5-15) BUN 40 H (7-18) mg/dL Creatinine 2.3 H D (0.55-1.02) mg/dL Est Cr Clr Drug Dosing TNP Estimated GFR (MDRD) 22 (>60) mL/min BUN/Creatinine Ratio 17.4 (14-18) Glucose 146 H (70-99) mg/dL Lactic Acid (0.4-2.0) mmol/L Calcium 10.1 (8.5-10.1) mg/dL Magnesium (1.8-2.4) mg/dL Total Bilirubin 0.5 (0.2-1.0) mg/dL AST 17 (15-37) U/L ALT 25 (14-59) U/L Alkaline Phosphatase 79 (46-116) U/L Troponin I < 0.017 (0.00-0.056) ng/mL C-Reactive Protein 26.2 H* (<1.0) mg/dL Total Protein 7.0 (6.4-8.2) g/dl Albumin 2.4 L (3.4-5.0) g/dl Globulin 4.6 gm/dL Albumin/Globulin Ratio 0.5 L (1-2) Urine Color (Yellow) Urine Appearance (Clear) Urine pH (5.0-8.0) Ur Specific [place] (1.005-1.030) Urine Protein (Negative) Urine Glucose (UA) (Negative) Urine Ketones (Negative) Urine Occult Blood (Negative) Urine Nitrite (Negative) Urine Bilirubin (Negative) Urine Urobilinogen (0.2-1.0) Ur Leukocyte Esterase (Negative) Urine RBC (0-5) /hpf Urine WBC (0-5) /hpf Ur Squamous Epith Cells (0-5) /hpf Triple Phos Crystals (NONE) /hpf Amorphous Sediment (NOT SEEN) /hpf Urine Bacteria (FEW) /hpf Urine Mucus (FEW) /hpf SARS-CoV-2 RNA (FREDI) (NEGATIVE) 10/13/20 10/13/20 10/13/20 Range/Units 21:50 21:50 22:19 WBC (3.98-10.04) K/mm3 RBC (3.98-5.22) M/mm3 Hgb (11.2-15.7) gm/dl Hct (34.1-44.9) % MCV (79.4-94.8) fl MCH (25.6-32.2) pg MCHC (32.2-35.5) g/dl RDW Std Deviation (36.4-46.3) fL Plt Count (182-369) K/mm3 MPV (9.4-12.3) fl Neutrophils % (Manual) (40-60) % Band Neutrophils % (0-10) % Lymphocytes % (Manual) (20-40) % Atypical Lymphs % % Monocytes % (Manual) (2-10) % Eosinophils % (Manual) (0.7-5.8) % Basophils % (Manual) (0.1-1.2) Platelet Estimate Anisocytosis RBC Morph Comment Puncture Site ABG pH (7.35-7.45) ABG pCO2 (35.0-45.0) mmHg ABG pO2 (80.0-100.0) mmHg ABG HCO3 (22.0-26.0) meq/L ABG O2 Saturation (96.0-97.0) % ABG Base Excess (-2-2.0) Danny Test A-a Gradient mmHg O2 Delivery Device Oxygen Flow Rate FiO2 (21.00-100.00) % Blood Gas Comments Sodium (136-145) mEq/L Potassium (3.5-5.1) mEq/L Chloride (98-107) mEq/L Carbon Dioxide (21-32) mEq/L Anion Gap (5-15) BUN (7-18) mg/dL Creatinine (0.55-1.02) mg/dL Est Cr Clr Drug Dosing Estimated GFR (MDRD) (>60) mL/min BUN/Creatinine Ratio (14-18) Glucose (70-99) mg/dL Lactic Acid 4.0 H* (0.4-2.0) mmol/L Calcium (8.5-10.1) mg/dL Magnesium 2.0 (1.8-2.4) mg/dL Total Bilirubin (0.2-1.0) mg/dL AST (15-37) U/L ALT (14-59) U/L Alkaline Phosphatase (46-116) U/L Troponin I (0.00-0.056) ng/mL C-Reactive Protein (<1.0) mg/dL Total Protein (6.4-8.2) g/dl Albumin (3.4-5.0) g/dl Globulin gm/dL Albumin/Globulin Ratio (1-2) Urine Color Yellow (Yellow) Urine Appearance Turbid H (Clear) Urine pH 8.5 H (5.0-8.0) Ur Specific [place] 1.015 (1.005-1.030) Urine Protein 3+ H (Negative) Urine Glucose (UA) Negative (Negative) Urine Ketones Negative (Negative) Urine Occult Blood 3+ H (Negative) Urine Nitrite Negative (Negative) Urine Bilirubin Negative (Negative) Urine Urobilinogen 0.2 (0.2-1.0) Ur Leukocyte Esterase 3+ H (Negative) Urine RBC 50-75 H (0-5) /hpf Urine WBC 40-50 H (0-5) /hpf Ur Squamous Epith Cells 0-5 (0-5) /hpf Triple Phos Crystals Few H (NONE) /hpf Amorphous Sediment Few H (NOT SEEN) /hpf Urine Bacteria Many H (FEW) /hpf Urine Mucus Few (FEW) /hpf SARS-CoV-2 RNA (FREDI) (NEGATIVE) 10/13/20 10/14/20 Range/Units 22:25 01:03 WBC (3.98-10.04) K/mm3 RBC (3.98-5.22) M/mm3 Hgb (11.2-15.7) gm/dl Hct (34.1-44.9) % MCV (79.4-94.8) fl MCH (25.6-32.2) pg MCHC (32.2-35.5) g/dl RDW Std Deviation (36.4-46.3) fL Plt Count (182-369) K/mm3 MPV (9.4-12.3) fl Neutrophils % (Manual) (40-60) % Band Neutrophils % (0-10) % Lymphocytes % (Manual) (20-40) % Atypical Lymphs % % Monocytes % (Manual) (2-10) % Eosinophils % (Manual) (0.7-5.8) % Basophils % (Manual) (0.1-1.2) Platelet Estimate Anisocytosis RBC Morph Comment Puncture Site ABG pH (7.35-7.45) ABG pCO2 (35.0-45.0) mmHg ABG pO2 (80.0-100.0) mmHg ABG HCO3 (22.0-26.0) meq/L ABG O2 Saturation (96.0-97.0) % ABG Base Excess (-2-2.0) Danny Test A-a Gradient mmHg O2 Delivery Device Oxygen Flow Rate FiO2 (21.00-100.00) % Blood Gas Comments Sodium (136-145) mEq/L Potassium (3.5-5.1) mEq/L Chloride (98-107) mEq/L Carbon Dioxide (21-32) mEq/L Anion Gap (5-15) BUN (7-18) mg/dL Creatinine (0.55-1.02) mg/dL Est Cr Clr Drug Dosing Estimated GFR (MDRD) (>60) mL/min BUN/Creatinine Ratio (14-18) Glucose (70-99) mg/dL Lactic Acid 3.5 H* (0.4-2.0) mmol/L Calcium (8.5-10.1) mg/dL Magnesium (1.8-2.4) mg/dL Total Bilirubin (0.2-1.0) mg/dL AST (15-37) U/L ALT (14-59) U/L Alkaline Phosphatase (46-116) U/L Troponin I (0.00-0.056) ng/mL C-Reactive Protein (<1.0) mg/dL Total Protein (6.4-8.2) g/dl Albumin (3.4-5.0) g/dl Globulin gm/dL Albumin/Globulin Ratio (1-2) Urine Color (Yellow) Urine Appearance (Clear) Urine pH (5.0-8.0) Ur Specific [place] (1.005-1.030) Urine Protein (Negative) Urine Glucose (UA) (Negative) Urine Ketones (Negative) Urine Occult Blood (Negative) Urine Nitrite (Negative) Urine Bilirubin (Negative) Urine Urobilinogen (0.2-1.0) Ur Leukocyte Esterase (Negative) Urine RBC (0-5) /hpf Urine WBC (0-5) /hpf Ur Squamous Epith Cells (0-5) /hpf Triple Phos Crystals (NONE) /hpf Amorphous Sediment (NOT SEEN) /hpf Urine Bacteria (FEW) /hpf Urine Mucus (FEW) /hpf SARS-CoV-2 RNA (FREDI) Negative (NEGATIVE) Result Diagrams: 10/13/20 21:50 10/13/20 21:50 Sepsis Event Note - Evaluation Sepsis Screening Result: No Definite Risk Current Stage of Sepsis: Septic Shock Possible Source of Sepsis: Genitourinary - Focused Exam Sepsis Event Note Statement: Focused Sepsis Exam Completed Vital Signs: Vital Signs Temp Pulse Resp BP Pulse Ox 10/14/20 06:33 103 H 16 108/51 L 95 10/14/20 06:27 96 16 80/51 L 92 L 10/14/20 04:29 122 H 18 91/54 L 92 L 10/14/20 04:22 123 H 85/62 L 95 10/14/20 03:35 122 H 18 82/39 L 93 L 10/14/20 03:02 37.2 C 137 H 18 81/42 L 92 L 10/14/20 02:05 140 H 18 139/68 99 10/14/20 01:18 101 H 16 137/65 95 10/14/20 00:57 116 H 16 108/79 96 10/14/20 00:23 36.2 C 95 16 92/49 L 97 10/13/20 23:39 103 H 16 92/54 L 96 10/13/20 23:08 100 16 95/46 L 93 L 10/13/20 22:30 91/49 L 10/13/20 21:50 101 H 16 84/43 L 98 10/13/20 20:59 35.8 C L 122 H 18 75/48 L 93 L Respiratory Effort Without Exertion: Abdominal Breathing, Shallow Heart Sounds: Irregular, Other (see below) (Tachycardia) Capillary Refill, Detail: Less than/Equal to (</=) 2 Seconds Pulse Description: 1+ Thready Peripheral Pulse Location: Radial Skin Exam (Focused Sepsis): Pale Date Exam was Performed: 10/14/20 Time Exam was Performed: 07:00 - Bedside Monitoring Bedside Ultrasound Performed: No Date Bedside Monitoring was Performed: 10/14/20 Time Bedside Monitoring was Performed: 08:13 - Problem List (1) Septic shock SNOMED Code(s): 95318520 ICD Code: A41.9 - SEPSIS, UNSPECIFIED ORGANISM; R65.21 - SEVERE SEPSIS WITH SEPTIC SHOCK Status: Acute Priority: High Current Visit: Yes Problem Details: Possible urinary source, on pressors (2) UTI (urinary tract infection) SNOMED Code(s): 76889100 ICD Code: N39.0 - URINARY TRACT INFECTION, SITE NOT SPECIFIED Status: Acute Priority: High Current Visit: Yes Problem Details: Pre-existing catheter. Qualifiers: Urinary tract infection type: site unspecified Hematuria presence: with hematuria Qualified Code(s): N39.0 - Urinary tract infection, site not specified; R31.9 - Hematuria, unspecified; R31.9 - Hematuria, unspecified (3) Sepsis SNOMED Code(s): 76159450 ICD Code: A41.9 - SEPSIS, UNSPECIFIED ORGANISM Status: Acute Priority: High Current Visit: Yes Qualifiers: Sepsis type: sepsis due to unspecified organism Sepsis acute organ dysfunction status: with acute organ dysfunction Severe sepsis acute organ dysfunction type: unspecified Severe sepsis shock status: with septic shock Qualified Code(s): A41.9 - Sepsis, unspecified organism; R65.21 - Severe sepsis with septic shock (4) Urinary catheter infection SNOMED Code(s): 116455836 ICD Code: T83.51XA - Status: Acute Priority: High Current Visit: Yes Problem Details: Pre-existing catheter on admission Qualifiers: Encounter type: initial encounter Qualified Code(s): T83.518A - Infection and inflammatory reaction due to other urinary catheter, initial encounter (5) Tachycardia SNOMED Code(s): 6341280 ICD Code: R00.0 - TACHYCARDIA, UNSPECIFIED Status: Acute Priority: High Current Visit: Yes (6) Multiple sclerosis SNOMED Code(s): 57897942 ICD Code: G35 - MULTIPLE SCLEROSIS Status: Chronic Priority: Medium Current Visit: Yes (7) Dementia SNOMED Code(s): 65463779 ICD Code: F03.90 - UNSPECIFIED DEMENTIA WITHOUT BEHAVIORAL DISTURBANCE Status: Chronic Priority: Medium Current Visit: Yes Qualifiers: Dementia type: Alzheimer's Alzheimer's disease onset: early-onset Dementia behavioral disturbance: without behavioral disturbance Qualified Code(s): G30.0 - Alzheimer's disease with early onset; F02.80 - Dementia in other diseases classified elsewhere without behavioral disturbance Problem List Initiated/Reviewed/Updated: Yes Orders Last 24hrs: Active Orders 24 hr Category Date Time Status Blood Pressure Mgt: Sepsis [RC] [id number] Care 10/13/20 21:12 Active Insert [place] Catheter [Insert Urinary Catheter] [OM.PC] Care 10/13/20 21:15 Ordered Q24H Oxygen Therapy, ED [RC] STAT Care 10/13/20 21:11 Active Urinary Catheter Assessment [RC] ASDIRECTED Care 10/13/20 21:16 Active Urinary Catheter Removal [RC] PER UNIT ROUTINE Care 10/13/20 21:15 Active Chest 1V Frontal [CR] Stat Exams 10/13/20 21:08 Taken BLOOD CULTURE [MREF] Stat Lab 10/13/20 21:50 Received CULTURE URINE [MREF] Stat Lab 10/13/20 22:19 Received Lactated Ringers [Ringers, Lactated] 1,000 ml Med 10/13/20 21:15 Active IV ASDIRECTED Norepinephrine [Levophed] 4 mg Med 10/14/20 06:00 Active Dextrose 5% in Water 246 ml IV TITRATE Sodium Chloride 0.9% [Normal Saline] 1,000 ml Med 10/14/20 04:45 Active IV ASDIRECTED Sodium Chloride 0.9% [Saline Flush] Med 10/13/20 21:08 Active 10 ml FLUSH ASDIRECTED PRN Blood Culture x2 Reflex Set [OM.PC] Stat Oth 10/13/20 21:09 Ordered Pulse Oximetry Continuous Monitoring [OM.PC] Routine Oth 10/13/20 21:08 Active Saline Lock Insert [OM.PC] Stat Oth 10/13/20 21:09 Ordered EKG 12 Lead [EK] Stat Ther 10/13/20 21:08 Ordered Medication Orders Lactated Ringer's (Ringers, Lactated) 1,000 mls @ 999 mls/hr IV ASDIRECTED KHAI Last Admin: 10/13/20 21:24 Dose: 999 mls/hr Documented by: CHRISTEL Sodium Chloride (Normal Saline) 1,000 mls @ 125 mls/hr IV ASDIRECTED KHAI Last Admin: 10/14/20 04:49 Dose: 125 mls/hr Documented by: CHRISTEL Norepinephrine Bitartrate 4 mg (/ Dextrose/Water) 250 mls @ 18.75 mls/hr IV TITRATE KHAI; Protocol Last Admin: 10/14/20 06:14 Dose: 5 mcg/min, 18.75 mls/hr Documented by: CHRISTEL Sodium Chloride (Sodium Chloride 0.9% 10 Ml Syringe) 10 ml FLUSH ASDIRECTED PRN PRN Reason: Keep Vein Open Last Admin: 10/13/20 21:24 Dose: 10 ml Documented by: CHRISTEL Assessment/Plan Comment:: The patient is a 59-year-old lady with acute medical condition consisting of septic shock with urinary source. The patient also has a number of chronic comorbidities which are contributing to the patient's overall poor. The patient has Alzheimer's disease as well as multiple sclerosis and she does have a history of septic shock as well. The patient has been admitted to ICU to continue with her pressors to help maintain her blood pressure or her MAP greater than 55 mmHg. Previously noted blood gas had been is thought to be venous blood her oxygen saturations have been around 92%. She will have oxygen support to continue to help keep her saturations around 92%. The patient will also have her regular feeding with her PEG tube as needed. The patient had been started initially on Levaquin while in the emergency department and this will be continued and will be renally dosed. Patient is dehydrated so she will be gently fluid resuscitated with the use of Ringer's lactate at 75 mL/h. Repeat l aboratory studies have been ordered. The patient is currently in a DO NOT INTUBATE/DO NOT RESUSCITATE category and there is some confusion with regards to comfort measures or not. We will discuss this with the family upon arrival. Overall the patient's prognosis is poor. - Mortality Measure Prognosis:: Poor
--- NOTE | 2020-10-14 07:43 | CR ---
Chest: Portable view of the chest was obtained. Comparison: Prior chest x-ray of 05/24/18. Heart size and mediastinum are normal. Mild areas of atelectasis are seen within both lung bases. Minimal atelectasis is seen within the left upper lung. Lungs otherwise are clear. Bony structures are osteopenic. Minimal vascular calcification is seen within the carotid arteries. Impression: 1. Mild atelectasis as noted above. Other findings as noted above. 2. Nothing acute is otherwise seen on portable chest x-ray. Diagnostic code #2
[2020-10-14] MEDS ORDERED: Atropine 1% Ophth Soln 5 ML BOTTLE SL PRN (08:24)
[2020-10-14] MEDS ORDERED: Acetaminophen 325 MG Tab GTUBE PRN (08:24)
[2020-10-14] MEDS ORDERED: Lactulose Soln 10 GM/15 ML 30 ML UD Cup GTUBE PRN (08:24)
[2020-10-14] MEDS ORDERED: Heparin Sodium 5,000 Units/ML Vial SUBCUT SCH (08:30)
[2020-10-14] MEDS ORDERED: Morphine 10 MG/0.5 ML Oral Syringe GTUBE PRN (08:58)
[2020-10-14] MEDS ORDERED: Ondansetron 4 MG Tab.DIS GTUBE PRN (08:59)
[2020-10-14] MEDS ORDERED: LORazepam 0.5 MG Tab GTUBE SCH (09:00)
[2020-10-14] MEDS ORDERED: tiZANidine 4 MG Tab GTUBE SCH (09:00)
[2020-10-14] MEDS ORDERED: LACTOSE REDUCED FOOD GTUBE SCH (09:00)
[2020-10-14] MEDS ORDERED: [UNRECOGNIZED DRUG - OTHER] GTUBE SCH (09:00)
[2020-10-14] MEDS ORDERED: FLUoxetine 10 MG Cap GTUBE SCH (09:00)
[2020-10-14] MEDS ORDERED: levETIRAcetam Soln 500 MG/5 ML Cup GTUBE SCH (09:00)
[2020-10-14] MEDS ORDERED: FIBER GTUBE SCH (09:00)
[2020-10-14 09:08] VITALS: BP 90/47; PULSE 88
[2020-10-14] MEDS ORDERED: Morphine 2 MG/ML SYRINGE IVPUSH PRN (11:00)
--- NOTE | 2020-10-14 11:23 | PCM.DCSUM1 ---
Discharge Summary - Hospital Course HPI Initial Comments: The patient was admitted secondary to septic shock from urinary source. Diagnosis: Stroke: No - Discharge Data Discharge Date: 10/14/20 Discharge Disposition: DC/Tfer to Hospice-Med Fac [facility] Condition: Poor - Referral to Home Health Primary Care Physician: Ron Khan MD - Discharge Diagnosis/Problem(s) (1) Septic shock SNOMED Code(s): 00799616 ICD Code: A41.9 - SEPSIS, UNSPECIFIED ORGANISM; R65.21 - SEVERE SEPSIS WITH S EPTIC SHOCK Status: Acute Priority: High Current Visit: Yes Problem Details: Possible urinary source, on pressors (2) UTI (urinary tract infection) SNOMED Code(s): 42915179 ICD Code: N39.0 - URINARY TRACT INFECTION, SITE NOT SPECIFIED Status: Acute Priority: High Current Visit: Yes Problem Details: Pre-existing catheter. Qualifiers: Urinary tract infection type: site unspecified Hematuria presence: with hematuria Qualified Code(s): N39.0 - Urinary tract infection, site not specified; R31.9 - Hematuria, unspecified; R31.9 - Hematuria, unspecified (3) Sepsis SNOMED Code(s): 64467202 ICD Code: A41.9 - SEPSIS, UNSPECIFIED ORGANISM Status: Acute Priority: High Current Visit: Yes Qualifiers: Sepsis type: sepsis due to unspecified organism Sepsis acute organ dysfunction status: with acute organ dysfunction Severe sepsis acute organ dysfunction type: unspecified Severe sepsis shock status: with septic shock Qualified Code(s): A41.9 - Sepsis, unspecified organism; R65.21 - Severe sepsis with septic shock (4) Urinary catheter infection SNOMED Code(s): 690379103 ICD Code: T83.51XA - Status: Acute Priority: High Current Visit: Yes Problem Details: Pre-existing catheter on admission Qualifiers: Encounter type: initial encounter Qualified Code(s): T83.518A - Infection and inflammatory reaction due to other urinary catheter, initial encounter (5) Tachycardia SNOMED Code(s): 3454992 ICD Code: R00.0 - TACHYCARDIA, UNSPECIFIED Status: Acute Priority: High Current Visit: Yes (6) Multiple sclerosis SNOMED Code(s): 56472421 ICD Code: G35 - MULTIPLE SCLEROSIS Status: Chronic Priority: Medium Current Visit: Yes (7) Dementia SNOMED Code(s): 29730258 ICD Code: F03.90 - UNSPECIFIED DEMENTIA WITHOUT BEHAVIORAL DISTURBANCE Status: Chronic Priority: Medium Current Visit: Yes Qualifiers: Dementia type: Alzheimer's Alzheimer's disease onset: early-onset Dementia behavioral disturbance: without behavioral disturbance Qualified Code(s): G30.0 - Alzheimer's disease with early onset; F02.80 - Dementia in other diseases classified elsewhere without behavioral disturbance - Patient Summary/Data Consults: Consultations 10/14/20 08:20 Consult to Flat Sorting Machine Clerk [CONS] Routine Hospital Course: The patient is a 59-year-old lady with advanced dementia along with essentially end-stage multiple sclerosis has been brought from [facility] to the emergency department after being found unresponsive. Prior to presentation the patient's blood pressure was 60/40 and her skin was mottled. The patient is essentially nonverbal and hard able to participate in any meaningful way with her history and physical. As per sepsis protocol and shock the patient was treated aggressively initially with IV fluids, antibiotics and pressors. Long discussion was held with the patient's mother, Viviane and her brother Dede and they were under the impression that the [facility] was not to transfer patient to the hospital. The patient is chronically ill with essentially end- stage multiple sclerosis along with dementia. The patient's family has also said that in the past the patient says that she is "ready to go" and does not want any heroic measures. The family had agreed that comfort measures should be maintained for the patient and hospice will be contacted. I ordered that the patient have all intervention ceased except for morphine and Ativan as needed to help keep the patient comfortable. Pressors have also been discontinued. The patient will be discharged and transported back to her [facility] where she can be kept comfortable until end-of-life. Further, it is recommended that the patient not be transported back to the hospital when she becomes unresponsive. Overall the patient's prognosis is very poor. Comfort measures only. - Patient Instructions Diet: NPO Diet, Other: PEG - Discharge Plan *PRESCRIPTION DRUG MONITORING PROGRAM REVIEWED*: Not Applicable *COPY OF PRESCRIPTION DRUG MONITORING REPORT IN PATIENT DEVIKA: Not Applicable Home Medications: Home Meds RX: LORazepam [Ativan ORAL Concentrate 1MG/0.5 ML U/D] 0.5 mg GTUBE TID 10/14/20 [History] RX: Morphine [Morphine 10 MG/5 ML] 5 mg GTUBE ASDIRECTED PRN 10/14/20 [History] Other Amb Orders: Comfort Measures [OM.PC] Location: None Selected Oxygen Therapy Mode: Room Air Forms: ED Department Discharge Referrals: Ron Khan MD [Primary Care Provider] - - Discharge Summary/Plan Comment DC Time >30 min.: Yes - General Info Date of Service: 10/14/20 Admission Dx/Problem (Free Text: Septic shock with likely urinary source. Subjective Update: Not able to respond. Had a discussion to send the patient back to [facility] with family. Functional Status: Reports: Pain Controlled - Review of Systems Systems Review Comment: The patient is not reliably able to provide review of systems. - Patient Data Vitals - Most Recent: Last Vital Signs Temp 35.9 C L 10/14/20 09:54 Pulse 88 10/14/20 09:07 Resp 16 10/14/20 06:33 BP 90/47 L 10/14/20 09:07 Pulse Ox 98 10/14/20 09:07 Weight - Most Recent: 58.967 kg Lab Results - Last 24 hrs: Laboratory Results - last 24 hr 10/13/20 10/13/20 10/13/20 Range/Units 21:24 21:50 21:50 WBC 17.33 H (3.98-10.04) K/mm3 RBC 3.96 L (3.98-5.22) M/mm3 Hgb 12.2 D (11.2-15.7) gm/dl Hct 35.9 (34.1-44.9) % MCV 90.7 D (79.4-94.8) fl MCH 30.8 (25.6-32.2) pg MCHC 34.0 (32.2-35.5) g/dl RDW Std Deviation 56.5 H (36.4-46.3) fL Plt Count 215 D (182-369) K/mm3 MPV 10.8 (9.4-12.3) fl Neutrophils % (Manual) 83 H (40-60) % Band Neutrophils % 4 (0-10) % Lymphocytes % (Manual) 6 L (20-40) % Atypical Lymphs % 0 % Monocytes % (Manual) 7 (2-10) % Eosinophils % (Manual) 0 L (0.7-5.8) % Basophils % (Manual) 0 L (0.1-1.2) Platelet Estimate Adequate Anisocytosis 1+ slight RBC Morph Comment Not Reportable Puncture Site Lt radial ABG pH 7.35 (7.35-7.45) ABG pCO2 52.4 H (35.0-45.0) mmHg ABG pO2 21.0 L* (80.0-100.0) mmHg ABG HCO3 27.8 H (22.0-26.0) meq/L ABG O2 Saturation 23.2 L (96.0-97.0) % ABG Base Excess 1.8 (-2-2.0) Danny Test Positive A-a Gradient 113 mmHg O2 Delivery Device Nasal cannula Oxygen Flow Rate 2.0 FiO2 28.00 (21.00-100.00) % Blood Gas Comments Mixed venous Sodium 135 L (136-145) mEq/L Potassium 4.6 (3.5-5.1) mEq/L Chloride 97 L (98-107) mEq/L Carbon Dioxide 29 (21-32) mEq/L Anion Gap 13.6 (5-15) BUN 40 H (7-18) mg/dL Creatinine 2.3 H D (0.55-1.02) mg/dL Est Cr Clr Drug Dosing TNP Estimated GFR (MDRD) 22 (>60) mL/min BUN/Creatinine Ratio 17.4 (14-18) Glucose 146 H (70-99) mg/dL Lactic Acid (0.4-2.0) mmol/L Calcium 10.1 (8.5-10.1) mg/dL Magnesium (1.8-2.4) mg/dL Total Bilirubin 0.5 (0.2-1.0) mg/dL AST 17 (15-37) U/L ALT 25 (14-59) U/L Alkaline Phosphatase 79 (46-116) U/L Troponin I < 0.017 (0.00-0.056) ng/mL C-Reactive Protein 26.2 H* (<1.0) mg/dL Total Protein 7.0 (6.4-8.2) g/dl Albumin 2.4 L (3.4-5.0) g/dl Globulin 4.6 gm/dL Albumin/Globulin Ratio 0.5 L (1-2) Urine Color (Yellow) Urine Appearance (Clear) Urine pH (5.0-8.0) Ur Specific [place] (1.005-1.030) Urine Protein (Negative) Urine Glucose (UA) (Negative) Urine Ketones (Negative) Urine Occult Blood (Negative) Urine Nitrite (Negative) Urine Bilirubin (Negative) Urine Urobilinogen (0.2-1.0) Ur Leukocyte Esterase (Negative) Urine RBC (0-5) /hpf Urine WBC (0-5) /hpf Ur Squamous Epith Cells (0-5) /hpf Triple Phos Crystals (NONE) /hpf Amorphous Sediment (NOT SEEN) /hpf Urine Bacteria (FEW) /hpf Urine Mucus (FEW) /hpf SARS-CoV-2 RNA (FREDI) (NEGATIVE) 10/13/20 10/13/20 10/13/20 Range/Units 21:50 21:50 22:19 WBC (3.98-10.04) K/mm3 RBC (3.98-5.22) M/mm3 Hgb (11.2-15.7) gm/dl Hct (34.1-44.9) % MCV (79.4-94.8) fl MCH (25.6-32.2) pg MCHC (32.2-35.5) g/dl RDW Std Deviation (36.4-46.3) fL Plt Count (182-369) K/mm3 MPV (9.4-12.3) fl Neutrophils % (Manual) (40-60) % Band Neutrophils % (0-10) % Lymphocytes % (Manual) (20-40) % Atypical Lymphs % % Monocytes % (Manual) (2-10) % Eosinophils % (Manual) (0.7-5.8) % Basophils % (Manual) (0.1-1.2) Platelet Estimate Anisocytosis RBC Morph Comment Puncture Site ABG pH (7.35-7.45) ABG pCO2 (35.0-45.0) mmHg ABG pO2 (80.0-100.0) mmHg ABG HCO3 (22.0-26.0) meq/L ABG O2 Saturation (96.0-97.0) % ABG Base Excess (-2-2.0) Danny Test A-a Gradient mmHg O2 Delivery Device Oxygen Flow Rate FiO2 (21.00-100.00) % Blood Gas Comments Sodium (136-145) mEq/L Potassium (3.5-5.1) mEq/L Chloride (98-107) mEq/L Carbon Dioxide (21-32) mEq/L Anion Gap (5-15) BUN (7-18) mg/dL Creatinine (0.55-1.02) mg/dL Est Cr Clr Drug Dosing Estimated GFR (MDRD) (>60) mL/min BUN/Creatinine Ratio (14-18) Glucose (70-99) mg/dL Lactic Acid 4.0 H* (0.4-2.0) mmol/L Calcium (8.5-10.1) mg/dL Magnesium 2.0 (1.8-2.4) mg/dL Total Bilirubin (0.2-1.0) mg/dL AST (15-37) U/L ALT (14-59) U/L Alkaline Phosphatase (46-116) U/L Troponin I (0.00-0.056) ng/mL C-Reactive Protein (<1.0) mg/dL Total Protein (6.4-8.2) g/dl Albumin (3.4-5.0) g/dl Globulin gm/dL Albumin/Globulin Ratio (1-2) Urine Color Yellow (Yellow) Urine Appearance Turbid H (Clear) Urine pH 8.5 H (5.0-8.0) Ur Specific [place] 1.015 (1.005-1.030) Urine Protein 3+ H (Negative) Urine Glucose (UA) Negative (Negative) Urine Ketones Negative (Negative) Urine Occult Blood 3+ H (Negative) Urine Nitrite Negative (Negative) Urine Bilirubin Negative (Negative) Urine Urobilinogen 0.2 (0.2-1.0) Ur Leukocyte Esterase 3+ H (Negative) Urine RBC 50-75 H (0-5) /hpf Urine WBC 40-50 H (0-5) /hpf Ur Squamous Epith Cells 0-5 (0-5) /hpf Triple Phos Crystals Few H (NONE) /hpf Amorphous Sediment Few H (NOT SEEN) /hpf Urine Bacteria Many H (FEW) /hpf Urine Mucus Few (FEW) /hpf SARS-CoV-2 RNA (FREDI) (NEGATIVE) 10/13/20 10/14/20 Range/Units 22:25 01:03 WBC (3.98-10.04) K/mm3 RBC (3.98-5.22) M/mm3 Hgb (11.2-15.7) gm/dl Hct (34.1-44.9) % MCV (79.4-94.8) fl MCH (25.6-32.2) pg MCHC (32.2-35.5) g/dl RDW Std Deviation (36.4-46.3) fL Plt Count (182-369) K/mm3 MPV (9.4-12.3) fl Neutrophils % (Manual) (40-60) % Band Neutrophils % (0-10) % Lymphocytes % (Manual) (20-40) % Atypical Lymphs % % Monocytes % (Manual) (2-10) % Eosinophils % (Manual) (0.7-5.8) % Basophils % (Manual) (0.1-1.2) Platelet Estimate Anisocytosis RBC Morph Comment Puncture Site ABG pH (7.35-7.45) ABG pCO2 (35.0-45.0) mmHg ABG pO2 (80.0-100.0) mmHg ABG HCO3 (22.0-26.0) meq/L ABG O2 Saturation (96.0-97.0) % ABG Base Excess (-2-2.0) Danny Test A-a Gradient mmHg O2 Delivery Device Oxygen Flow Rate FiO2 (21.00-100.00) % Blood Gas Comments Sodium (136-145) mEq/L Potassium (3.5-5.1) mEq/L Chloride (98-107) mEq/L Carbon Dioxide (21-32) mEq/L Anion Gap (5-15) BUN (7-18) mg/dL Creatinine (0.55-1.02) mg/dL Est Cr Clr Drug Dosing Estimated GFR (MDRD) (>60) mL/min BUN/Creatinine Ratio (14-18) Glucose (70-99) mg/dL Lactic Acid 3.5 H* (0.4-2.0) mmol/L Calcium (8.5-10.1) mg/dL Magnesium (1.8-2.4) mg/dL Total Bilirubin (0.2-1.0) mg/dL AST (15-37) U/L ALT (14-59) U/L Alkaline Phosphatase (46-116) U/L Troponin I (0.00-0.056) ng/mL C-Reactive Protein (<1.0) mg/dL Total Protein (6.4-8.2) g/dl Albumin (3.4-5.0) g/dl Globulin gm/dL Albumin/Globulin Ratio (1-2) Urine Color (Yellow) Urine Appearance (Clear) Urine pH (5.0-8.0) Ur Specific [place] (1.005-1.030) Urine Protein (Negative) Urine Glucose (UA) (Negative) Urine Ketones (Negative) Urine Occult Blood (Negative) Urine Nitrite (Negative) Urine Bilirubin (Negative) Urine Urobilinogen (0.2-1.0) Ur Leukocyte Esterase (Negative) Urine RBC (0-5) /hpf Urine WBC (0-5) /hpf Ur Squamous Epith Cells (0-5) /hpf Triple Phos Crystals (NONE) /hpf Amorphous Sediment (NOT SEEN) /hpf Urine Bacteria (FEW) /hpf Urine Mucus (FEW) /hpf SARS-CoV-2 RNA (FREDI) Negative (NEGATIVE) Med Orders - Current: Current Medications Acetaminophen (Acetaminophen 325 Mg Tab) 650 mg GTUBE Q4H PRN PRN Reason: Pain/Fever Atropine Sulfate (Atropine 1% Ophth Soln 5 Ml Bottle) 0 ml SL Q4H PRN PRN Reason: extra secretions Fluoxetine HCl (Fluoxetine 10 Mg Cap) 10 mg GTUBE DAILY KHAI Heparin Sodium (Porcine) (Heparin Sodium 5,000 Units/Ml Vial) 5,000 units SUBCUT Q8H KHAI Lactated Ringer's (Ringers, Lactated) 1,000 mls @ 999 mls/hr IV ASDIRECTED KHAI Last Admin: 10/13/20 21:24 Dose: 999 mls/hr Documented by: Sodium Chloride (Normal Saline) 1,000 mls @ 125 mls/hr IV ASDIRECTED KHAI Last Admin: 10/14/20 04:49 Dose: 125 mls/hr Documented by: Norepinephrine Bitartrate 4 mg (/ Dextrose/Water) 250 mls @ 18.75 mls/hr IV TITRATE KHAI; Protocol Last Admin: 10/14/20 06:14 Dose: 5 mcg/min, 18.75 mls/hr Documented by: Levofloxacin/Dextrose 250 mg/ (Premix) 50 mls @ 50 mls/hr IV Q24H KHAI Lactulose (Lactulose Soln 10 Gm/15 Ml 30 Ml Ud Cup) 10 gm GTUBE DAILY PRN PRN Reason: constipation Levetiracetam (Levetiracetam Soln 500 Mg/5 Ml Cup) 1,000 mg GTUBE BID KHAI Lorazepam (Lorazepam 0.5 Mg Tab) 0.5 mg GTUBE TID KHAI Morphine Sulfate (Morphine 10 Mg/0.5 Ml Oral Syringe) 5 mg GTUBE Q30M PRN PRN Reason: moderate pain/SOB Morphine Sulfate (Morphine 2 Mg/Ml Syringe) 2 mg IVPUSH Q2H PRN PRN Reason: Pain Last Admin: 10/14/20 11:13 Dose: 2 mg Documented by: Ondansetron HCl (Ondansetron 4 Mg Tab.Dis) 4 mg GTUBE Q6H PRN PRN Reason: Nausea Senna/Docusate Sodium (Docusate Sodium/Sennosides 50-8.6 Mg Tab) 2 tab GTUBE BID KHAI Sodium Chloride (Sodium Chloride 0.9% 10 Ml Syringe) 10 ml FLUSH ASDIRECTED PRN PRN Reason: Keep Vein Open Last Admin: 10/13/20 21:24 Dose: 10 ml Documented by: Tizanidine HCl (Tizanidine 4 Mg Tab) 2 mg GTUBE TID KHAI Discontinued Medications Lactated Ringer's (Ringers, Lactated) 1,000 mls @ 999 mls/hr IV .BOLUS ONE Stop: 10/13/20 23:00 Last Admin: 10/13/20 22:00 Dose: 999 mls/hr Documented by: Levofloxacin/Dextrose (Levaquin In D5w 750 Mg/150 Ml) Confirm Administered Dose 150 mls @ as directed IV .STK-MED ONE Stop: 10/13/20 23:31 Last Admin: 10/14/20 01:18 Dose: Not Given Documented by: Levofloxacin/Dextrose 750 mg/ (Premix) 150 mls @ 100 mls/hr IV ONETIME STA Stop: 10/14/20 00:54 Last Admin: 10/13/20 23:30 Dose: 100 mls/hr Documented by: Morphine Sulfate (Morphine 4 Mg/Ml Syringe) 5 mg IVPUSH ONETIME STA Stop: 10/14/20 01:50 Last Admin: 10/14/20 02:04 Dose: 5 mg Documented by: Non-Formulary Medication (Lactose-Reduced Food/Fiber [Jevity 1.5 Ugo Liquid]) 850 ml GTUBE DAILY KHAI - Exam Quality Assessment: Denies: Supplemental Oxygen, DVT Prophylaxis General: Denies: Alert (Awake but not alert or oriented) HEENT: Reports: Pupils Equal, Pupils Reactive. Denies: Mucous Membr. Moist/[place] Neck: Reports: Supple (I), Trachea Midline Lungs: Reports: Clear to Auscultation, Normal Respiratory Effort Cardiovascular: Reports: Tachycardia GI/Abdominal Exam: Normal Bowel Sounds, No Distention (Female) Exam: Deferred Rectal (Female) Exam: Deferred Back Exam: Denies: Normal Inspection (Bedridden due to MS), Full Range of Motion Extremities: No: Normal Inspection (Contractures) Skin: Reports: Warm, Dry Neurological: Denies: Normal Gait, Normal Speech Psy/Mental Status: Denies: Alert
[2020-10-15] MEDS ORDERED: Levofloxacin/Dextrose 5%-Water 250 MG in Premix Bag 1 BAG IV SCH (23:30)
== END 2020-10-14 14:00 | disposition hospice, inpatient (51) | DRG 698 ==
LOC: JD.ED 20:54 → JD.ICU 10-14 08:20
PROVIDERS: ADMIT Internal Medicine; ATTEND Internal Medicine
PROC: 3E033XZ Introduction of Vasopressor into Peripheral Vein, Percutaneous Approach (ICD-10-PCS; principal; 2020-10-14)
DX: T83.518A Infection and inflammatory reaction due to other urinary catheter, initial encounter (principal); A41.9 Sepsis, unspecified organism; R65.21 Severe sepsis with septic shock; N17.9 Acute kidney failure, unspecified; N12 Tubulo-interstitial nephritis, not specified as acute or chronic; Z93.6 Other artificial openings of urinary tract status; R31.9 Hematuria, unspecified; G35 Multiple sclerosis; G30.9 Alzheimer's disease, unspecified; G30.0 Alzheimer's disease with early onset; Z20.822 Contact with and (suspected) exposure to COVID-19; Z66 Do not resuscitate; E11.9 Type 2 diabetes mellitus without complications; Z51.5 Encounter for palliative care; F02.80 Dementia in other diseases classified elsewhere, unspecified severity, without behavioral disturbance, psychotic disturbance, mood disturbance, and anxiety; F41.9 Anxiety disorder, unspecified; F32.9 Major depressive disorder, single episode, unspecified; G47.00 Insomnia, unspecified; M81.0 Age-related osteoporosis without current pathological fracture; M19.90 Unspecified osteoarthritis, unspecified site; N31.9 Neuromuscular dysfunction of bladder, unspecified; R33.9 Retention of urine, unspecified; Z79.899 Other long term (current) drug therapy; Z86.718 Personal history of other venous thrombosis and embolism; Z86.73 Personal history of transient ischemic attack (TIA), and cerebral infarction without residual deficits; Z87.01 Personal history of pneumonia (recurrent)
CPT/HCPCS: 36415 ×2; 36600; 71045; 80053; 81001; 82803; 83605 ×2; 83735; 84484; 85007; 85027; 86140; 87040; 87086; 87635; J1956; J2270; J7030; J7060; J7120 ×2; 51702; 87088; 87186; 93010; 96365; 96366; 96367; 96375; 99236; 99285; 99285-25; U0002